=== PATIENT | female | born 1945 | race Caucasian/White ===

== ENCOUNTER 2016-04-10 21:18 | Inpatient (IN) | payer MEDICARE, MEDICAID ==
[2016-04-10] MEDS ORDERED: NORMAL SALINE 1000 ML 1,000 ML IV ONE (22:10)
[2016-04-10] MEDS ORDERED: ONDANSETRON HCL INJ/PF 4 MG/2 ML SDV IV ONE (22:10)
--- NOTE | 2016-04-10 22:14 | ER Document Report ---
ED General - General Stated Complaint: WEAKNESS Notes: Patient is a pleasant 71-year-old female presents for complaint of weakness, vomiting, and diarrhea. Symptoms first started Friday with some abdominal pain followed by vomiting and diarrhea. Stool is watery. No blood in the stool or emesis. No fevers. Previous history of abdominal surgery includes partial colectomy due to bowel obstruction. She also has had a cholecystectomy. She is unsure if she still has her appendix. No dysuria. No other complaints at this time. Patient does have lung cancer. She is no longer smoker. TRAVEL OUTSIDE OF THE [place] IN LAST 30 DAYS: No - Related Data Allergies/Adverse Reactions: Penicillins Allergy (Verified 11/18/15 23:19) Hives Past Medical History - Social History Smoking Status: Former Smoker Frequency of alcohol use: None Drug Abuse: None Family History: Reviewed & Not Pertinent - Past Medical History Cardiac Medical History: Reports: Hx Hypercholesterolemia, Hx Hypertension Denies: Hx Coronary Artery Disease, Hx Heart Attack Pulmonary Medical History: Reports: Hx Asthma, Hx Bronchitis, Hx COPD, Hx Pneumonia Denies: Hx Tuberculosis Neurological Medical History: Denies: Hx Cerebrovascular Accident, Hx Seizures Malignancy Medical History: Reports: Hx Lung Cancer - Squamous cell lung cancer , stage I GI Medical History: Reports: Hx Gastroesophageal Reflux Disease Musculoskeltal Medical History: Reports Hx Arthritis - RA all over Psychiatric Medical History: Reports: Hx Depression - AND ANXIETY Infectious Medical History: Reports: Hx MRSA - History of MRSA pneumonia and history of gram-negative pneumonia Past Surgical History: Reports: Hx Abdominal Surgery - gastric bypass, sbo, Hx Appendectomy, Hx Cholecystectomy, Hx Hysterectomy, Hx Orthopedic Surgery - Immunizations Immunizations up to date: Yes Hx Diphtheria, Pertussis, Tetanus Vaccination: No Hx Pneumococcal Vaccination: 04/14/12 Review of Systems - Review of Systems Notes: My Normal Review Basic REVIEW OF SYSTEMS: CONSTITUTIONAL : Denies fever, chills, or sweats. Denies recent illness. EENT: Denies eye, ear, throat, or mouth pain or symptoms. Denies nasal or sinus congestion. CARDIOVASCULAR: Denies chest pain. RESPIRATORY: Denies cough, cold, or chest congestion. Denies shortness of breath, difficulty breathing, or wheezing. GASTROINTESTINAL: Diffuse abdominal pain. Vomiting and diarrhea Denies constipation. Last BM: GENITOURINARY: Denies difficulty urinating, painful urination, burning, frequency, or blood in urine. MUSCULOSKELETAL: Denies neck or back pain or joint pain or swelling. SKIN: Denies rash or skin lesions. NEUROLOGICAL: Denies altered mental status or loss of consciousness. Denies headache. Denies weakness or paralysis or loss of use of either side. Denies problems with gait or speech. Denies sensory or motor loss. ALL OTHER SYSTEMS REVIEWED AND NEGATIVE. Physical Exam - Vital signs Vitals: Temp 97.9 F 04/10/16 22:00 - Notes Notes: General Appearance: Well nourished, alert, cooperative, no acute distress, no obvious discomfort. Vitals: reviewed, See vital signs table. Head: no swelling or tenderness to the head Eyes: PERRL, EOMI, Conjuctiva clear Mouth: No decreasd moisturehy Neck: Supple, no neck tenderness, No thyromegaly Lungs: No wheezing, No rales, No rhonci, No accessory muscle use, good air exchange bilaterally. Heart: Normal rate, Regular rythm, No murmur, no rub Abdomen: Normal BS, soft, No rigidity, mild to moderate diffuse abdominal tenderness to palpation, No guarding, no rebound, no abdominal masses, no organomegaly Extremities: strength 5/5 in all extremities, good pulses in all extremities, no swelling or tenderness in the extremities, no edema. Skin: warm, dry, appropriate color, no rash Neuro: speech clear, oriented x 3, normal affect, responds appropriately to questions. Course - Re-evaluation Re-evalutation: 04/10/16 23:41 Patient's laboratory evaluation does show a leukocytosis. Her lactic acid is normal. She does have evidence dehydration. She denies abdominal pain currently; however, when I palpate her abdomen she does have reducible pain. Abdomen is still soft and nonrigid. I will obtain a CT scan for further evaluation. - Vital Signs Vital signs: Temp Pulse Resp BP Pulse Ox 97.8 F 18 100/62 100 04/10/16 22:35 04/11/16 00:01 04/11/16 00:01 04/11/16 00:01 - Laboratory Result Diagrams: 04/10/16 22:00 04/10/16 22:00 Laboratory results interpreted by me: 04/10/16 04/10/16 22:00 22:00 WBC 17.3 H RBC 3.26 L Hgb 8.5 L Hct 26.9 L MCH 26.0 L MCHC 31.5 L RDW 16.8 H Seg Neutrophils % 86.2 H Lymphocytes % 9.1 L Absolute Neutrophils 14.9 H Sodium 133.8 L Potassium 5.3 H BUN 51 H Creatinine 2.16 H Est GFR ( Amer) 27 L Est GFR (Non-Af Amer) 22 L Glucose 128 H - EKG Interpretation by Me Additional EKG results interpreted by me: 04/10/16 22:14 EKG is reviewed and interpreted by me. EKG shows normal sinus rhythm with rate of [address] segment elevation or depression. This T wave inversions. MA interval is prolonged at 224 ms. QRS duration QTC intervals are within normal range. Old EKG for comparison is from 02/07/2016. - Transfer of Care Notes: 04/11/16 05:27 Patient's vomiting and diarrhea may control. She still has a small amount of pain with palpation to the abdomen. I did obtain a CT scan because of leukocytosis, her age, and her presentation of hypotension. CT scan was read as a possible kidney stone. Patient has no blood in her urine, no signs of infection in her urine, and clinically her history and exam are not consistent with a kidney stone. I therefore called the radiologist asked him what he meant by his read. He says that the patient has chronic ossification in the area near the ureter. He says there is some new calcification in the area near the ureter. He says he cannot tell protection in the ureter or not. He says if clinically the patient does not seem like a kidney stone that probably is not ; however, he cannot rule out kidney stone with the CT scan alone. He says the patient has always had the appearance of hydronephrosis on her previous CT scans as well due to the history of extrarenal pelvis. This is not new. Based on the patient's lack of hematuria, no infection in the urine, and presentation of vomiting diarrhea I do not suspect the patient has kidney stone. I did explain this to the patient's primary care physician, Dr. Stevens. I did inform him that is difficult the patient should be admitted being that I think patient is dehydrated from all the vomiting diarrhea she's had for last 6 days. Currently the do not see evidence of colitis on CT scan. I did discuss option of antibiotics with Dr. Stevens and he wants to hold off on antibiotics at this time. Patient will be admitted for further workup and treatment. Discharge - Discharge Clinical Impression: Vomiting and diarrhea, Dehydration Leukocytosis Qualifiers: Leukocytosis type: unspecified Qualified Code(s): D72.829 - Elevated white blood cell count, unspecified Condition: Stable Disposition: ADMITTED INPATIENT Admitting Provider: Lenore [facility] Admitted: [facility]
[2016-04-10 22:23] LABS: ABSOLUTE BASOPHILS # (AUTO) 0.1 10^3/uL (0.0-0.2); ABSOLUTE LYMPHOCYTES (AUTO) 1.6 10^3/uL (0.5-4.7); ABSOLUTE MONOCYTES (AUTO) 0.7 10^3/uL (0.1-1.4); ABSOLUTE NEUT (AUTO) 14.9 10^3/uL (1.7-8.2); BASOPHILS % (AUTO) 0.8 % (0-2); EOSINOPHILS % (AUTO) 0.1 % (0-6); HEMATOCRIT 26.9 % (36.0-47.0); HEMOGLOBIN 8.5 g/dL (12.0-15.5); HGB HCT DIFFERENCE -1.4; LYMPHOCYTES % (AUTO) 9.1 % (13-45); MEAN CORPUSCULAR HGB CONC 31.5 g/dL (32.0-36.0); MEAN CORPUSCULAR VOLUME 83 fl (80-97); MONOCYTES % (AUTO) 3.8 % (3-13); RED BLOOD COUNT 3.26 10^6/uL (3.72-5.28); RED CELL DISTRIBUTION WIDTH 16.8 % (11.5-14.0); SEGMENTED NEUTROPHILS % (AUTO) 86.2 % (42-78); WHITE BLOOD COUNT 17.3 10^3/uL (4.0-10.5)
[2016-04-10 22:36] LABS: ALANINE AMINOTRANSFERASE 32 U/L (9-52); ALBUMIN 3.6 g/dL (3.5-5.0); ALKALINE PHOSPHATASE 98 U/L (38-126); ANION GAP 11 (5-19); ASPARTATE AMINO TRANSFERASE 32 U/L (14-36); BILIRUBIN,TOTAL 0.3 mg/dL (0.2-1.3); BLOOD UREA NITROGEN 51 mg/dL (7-20); CALCIUM 8.6 mg/dL (8.4-10.2); CARBON DIOXIDE 22 mmol/L (22-30); CHLORIDE 101 mmol/L (98-107); CREATINE KINASE 46 U/L (30-135); CREATININE RESULT 2.16 mg/dL (0.52-1.25); GLUCOSE 128 mg/dL (75-110); POTASSIUM 5.3 mmol/L (3.6-5.0); SODIUM 133.8 mmol/L (137-145); TOTAL PROTEIN 6.5 g/dL (6.3-8.2)
[2016-04-10 22:48] LABS: CREATINE KINASE MB 1.06 ng/mL (<4.55); TROPONIN I < 0.012 ng/mL
[2016-04-10] MEDS ORDERED: NORMAL SALINE 1000 ML 500 ML IV ONE (23:40)
[2016-04-11 03:48] LABS: APPEARANCE,URINE SLIGHTLY-CLOUDY; BILIRUBIN,URINE NEGATIVE (NEGATIVE); GLUCOSE, URINE NEGATIVE (NEGATIVE); KETONES,URINE NEGATIVE (NEGATIVE); LEUKOCYTE ESTERASE,URINE NEGATIVE (NEGATIVE); NITRITE,URINE NEGATIVE (NEGATIVE); PROTEIN,URINE NEGATIVE (NEGATIVE); URINE SPECIFIC GRAVITY 1.014; UROBILINOGEN,URINE NEGATIVE mg/dL (<2.0)
[2016-04-11] MEDS ORDERED: NORMAL SALINE 1000 ML 1,000 ML IV ONE (05:31)
--- NOTE | 2016-04-11 08:01 | EKG REPORT ---
SEVERITY:- ABNORMAL ECG - SINUS RHYTHM FIRST DEGREE AV BLOCK LEFT ANTERIOR FASCICULAR BLOCK BORDERLINE T ABNORMALITIES, ANT-LAT LEADS : Confirmed by: Michael Olivier MD 11-Apr-2016 08:01:09
[2016-04-11] MEDS ORDERED: (PENDING PHARMACY ID) (Duloxetine Hcl [Duloxetine Hcl] 60 MG) PO SCH (13:30)
[2016-04-11] MEDS ORDERED: (PENDING PHARMACY ID) (Oxycodone Hcl/Acetaminophen [Percocet 10-325 Mg Tablet] 1 EACH) PO SCH (13:30)
[2016-04-11] MEDS ORDERED: ALBUTEROL SULFATE HFA (90 MCG/PUFF) 200 PUFF/8.5 GM MDI IH PRN (14:00)
[2016-04-11] MEDS ORDERED: LANSOPRAZOLE 30 MG TAB.RAP.DR PO ONE (14:15)
[2016-04-11] MEDS ORDERED: DULOXETINE HCL 30 MG CAPSULE.DR PO ONE (14:30)
[2016-04-11] MEDS: OXYCODONE-ACETAMINOPHEN 5-325 MG TABLET PO SCH ×2 (14:53→21:19)
[2016-04-11] MEDS: OXYCODONE HCL IR 5 MG TABLET PO SCH ×2 (14:53→21:19)
[2016-04-11] MEDS: DULOXETINE HCL 30 MG CAPSULE.DR PO SCH (21:19)
[2016-04-12] MEDS: OXYCODONE HCL IR 5 MG TABLET PO SCH ×4 (03:28→22:48)
[2016-04-12] MEDS: OXYCODONE-ACETAMINOPHEN 5-325 MG TABLET PO SCH ×4 (03:28→22:48)
[2016-04-12] MEDS: LANSOPRAZOLE 30 MG TAB.RAP.DR PO SCH (05:11)
[2016-04-12] MEDS ORDERED: ONDANSETRON HCL INJ/PF 4 MG/2 ML SDV ONE (09:30)
[2016-04-12] MEDS: DULOXETINE HCL 30 MG CAPSULE.DR PO SCH ×2 (09:32→23:06)
[2016-04-12] MEDS ORDERED: ONDANSETRON HCL INJ/PF 4 MG/2 ML SDV IV PRN (09:50)
[2016-04-12] MEDS ORDERED: NORMAL SALINE 1000 ML 1,000 ML IV PRN (11:49)
[2016-04-12] MEDS ORDERED: ERGOCALCIFEROL (VITAMIN D2) 50000 UNIT (1.25 MG) CAPSULE PO SCH (12:00)
--- NOTE | 2016-04-12 12:08 | PDOC H&P ---
History of Present Illness Admission Date/PCP: 04/11/16 08:00 NATACHA ENGLAND, History of Present Illness: HUNTER GRANADOS is a 71 year old female, she has end-stage COPD and malignant neoplasm of the lung, she came to the emergency room because of diarrhea and vomiting associated with abdominal pain, in the emergency room she she was evaluated, CT scan of abdomen and pelvis was done and it was negative for an acute pathology. There was evidence of dehydration, that was elevated BUN/ creatinine and also leukocytosis Past Medical History Cardiac Medical History: Reports: Hyperlipidema, Hypertension Pulmonary Medical History: Reports: Asthma, Bronchitis, Chronic Obstructive Pulmonary Disease (COPD), Pneumonia Malignancy Medical History: Reports: Lung Cancer - Squamous cell lung cancer, stage I GI Medical History: Reports: Gastroesophageal Reflux Disease Musculoskeltal Medical History: Reports: Arthritis - RA all over Psychiatric Medical History: Reports: Depression - AND ANXIETY Hematology: Reports: Anemia Infectious Medical History: Reports: 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 and history of gram-negative pneumonia Past Surgical History Past Surgical History: Reports: Appendectomy, Cholecystectomy, Hysterectomy, Orthopedic Surgery Social History Smoking Status: Former Smoker Frequency of Alcohol Use: None Hx Recreational Drug Use: No Drugs: None Hx Prescription Drug Abuse: No - Advance Directive Resuscitation Status: Full Code Family History Family History: Reviewed & Not Pertinent Parental Family History Reviewed: Yes Children Family History Reviewed: Yes Sibling(s) Family History Reviewed.: Yes Medication/Allergy Home Medications: Albuterol Sulfate [Proair HFA] 1 puff IH PRN PRN 10/08/14 Fluconazole [Diflucan] 100 mg PO DAILY 10/08/14 Prednisone [Deltasone 20 mg Tablet] 40 mg PO DAILY #0 tablet 03/13/15 Amlodipine Besylate 5 mg PO DAILY 02/08/16 Clonazepam [Klonopin] 0.5 mg PO BID 02/08/16 Clonidine HCl 0.1 mg PO BID 02/08/16 Duloxetine HCl 60 mg PO BID 02/08/16 Ergocalciferol (Vitamin D2) [Vitamin D2] 50,000 unit PO [id number] 02/08/16 Levocetirizine Dihydrochloride [Xyzal 5 mg Tablet] 5 mg PO QHS 02/08/16 Pravastatin Sodium 40 mg PO QHS 02/08/16 Pregabalin [Lyrica 75 mg Capsule] 75 mg PO TID 02/08/16 Valsartan 160 mg PO BID 02/08/16 Albuterol Sulfate [Proair HFA] 1 - 2 puff IH Q4 PRN #1 inhaler 02/27/16 Budesonide/Formoterol Fumarate [Symbicort Hfa 160-4.5 Mcg Inhaler 6 gm] 2 puff IH Q12 #1 inhaler 02/27/16 Oxycodone HCl/Acetaminophen [Percocet 10-325 mg Tablet] 1 each PO Q6H #60 02/26 Tiotropium [place] [Spiriva Handihaler 18 mcg/dose (30 Dose)] 1 cap IH DAILY # 30 capsule 02/27/16 Omeprazole [Omeprazole] 40 mg PO DAILY 04/11/16 Allergies/Adverse Reactions: Penicillins Allergy (Verified 11/18/15 23:19) Hives Review of Systems Constitutional: ABSENT: chills, fever(s), headache(s), weight gain, weight loss Eyes: ABSENT: visual disturbances Ears: ABSENT: hearing changes Cardiovascular: ABSENT: chest pain, dyspnea on exertion, edema, orthropnea, palpitations Respiratory: ABSENT: cough, hemoptysis Gastrointestinal: PRESENT: diarrhea, vomiting Genitourinary: ABSENT: dysuria, hematuria Musculoskeletal: ABSENT: joint swelling Integumentary: ABSENT: rash, wounds Neurological: ABSENT: abnormal gait, abnormal speech, confusion, dizziness, focal weakness, syncope Psychiatric: ABSENT: anxiety, depression, homidical ideation, suicidal ideation Endocrine: ABSENT: cold intolerance, heat intolerance, menstrual abnormalities, polydipsia, polyuria Hematologic/Lymphatic: ABSENT: easy bleeding, easy bruising, lymphadenopathy Physical Exam Vital Signs: Temp Pulse Resp BP Pulse Ox 97.8 F 89 18 125/60 98 04/12/16 07:00 04/12/16 07:00 04/12/16 07:00 04/12/16 07:00 04/12/16 07:00 Intake & Output 04/11/16 04/12/16 04/13/16 06:59 06:59 06:59 Intake Total 400 Output Total 300 Balance 100 Weight 66.5 kg General appearance: PRESENT: no acute distress, well-developed, well-nourished Head exam: PRESENT: atraumatic, normocephalic Eye exam: PRESENT: conjunctiva pink, EOMI, PERRLA. ABSENT: scleral icterus Ear exam: PRESENT: normal external ear exam Mouth exam: PRESENT: moist, tongue midline Neck exam: PRESENT: full ROM. ABSENT: carotid bruit, JVD, lymphadenopathy, thyromegaly Cardiovascular exam: PRESENT: RRR, +S1, +S2 Vascular exam: PRESENT: normal capillary refill GI/Abdominal exam: PRESENT: normal bowel sounds, soft Rectal exam: PRESENT: deferred Neurological exam: PRESENT: alert, awake, oriented to person, oriented to place , oriented to time, oriented to situation, CN II-XII grossly intact Psychiatric exam: PRESENT: appropriate affect, normal mood Skin exam: PRESENT: dry, intact, warm Results Laboratory Results: 04/11/16 16:26 Nasophary (Mrsa Only) MRSA Surveillance Culture - Final MRSA RECOVERED Impressions: Acute Abdomen Series 04/10/16 22:09 IMPRESSION: NONSPECIFIC BOWEL GAS PATTERN WITHOUT EVIDENCE FOR OBSTRUCTION. Mild subsegmental atelectasis in both lung bases. Abdomen/Pelvis CT 04/10/16 23:38 IMPRESSION: 0.7 possible right distal ureteral stone. Mild prominence of the right renal collecting system. Consider surveillance with dynamic IV contrast CT/IVP of the renal system. Assessment & Plan - Diagnosis (1) Gastroenteritis Is this a current diagnosis for this admission?: YesPlan: She probably have viral gastroenteritis, we will also suggest to to eliminate for C. difficile toxin (2) Acute kidney injury Is this a current diagnosis for this admission?: YesPlan: This is probably prerenal acute kidney injury from loss of volume due to diarrhea and vomiting
[2016-04-12 13:24] LABS: ABSOLUTE BASOPHILS # (AUTO) 0.1 10^3/uL (0.0-0.2); ABSOLUTE EOSINOPHILS # (AUTO) 0.3 10^3/uL (0.0-0.6); ABSOLUTE LYMPHOCYTES (AUTO) 2.5 10^3/uL (0.5-4.7); ABSOLUTE MONOCYTES (AUTO) 1.3 10^3/uL (0.1-1.4); ABSOLUTE NEUT (AUTO) 7.4 10^3/uL (1.7-8.2); BASOPHILS % (AUTO) 0.7 % (0-2); HEMATOCRIT 27.6 % (36.0-47.0); HEMOGLOBIN 8.8 g/dL (12.0-15.5); HGB HCT DIFFERENCE -1.2; LYMPHOCYTES % (AUTO) 21.2 % (13-45); MEAN CORPUSCULAR HEMOGLOBIN 26.4 pg (27.0-33.4); MEAN CORPUSCULAR HGB CONC 32.1 g/dL (32.0-36.0); MEAN CORPUSCULAR VOLUME 82 fl (80-97); MONOCYTES % (AUTO) 11.2 % (3-13); RED BLOOD COUNT 3.35 10^6/uL (3.72-5.28); RED CELL DISTRIBUTION WIDTH 16.1 % (11.5-14.0); SEGMENTED NEUTROPHILS % (AUTO) 63.9 % (42-78); WHITE BLOOD COUNT 11.6 10^3/uL (4.0-10.5)
[2016-04-12 13:38] LABS: ALANINE AMINOTRANSFERASE 38 U/L (9-52); ALBUMIN 2.8 g/dL (3.5-5.0); ALKALINE PHOSPHATASE 104 U/L (38-126); ANION GAP 7 (5-19); ASPARTATE AMINO TRANSFERASE 18 U/L (14-36); BILIRUBIN,TOTAL 0.2 mg/dL (0.2-1.3); BLOOD UREA NITROGEN 20 mg/dL (7-20); CALCIUM 8.9 mg/dL (8.4-10.2); CARBON DIOXIDE 26 mmol/L (22-30); CHLORIDE 105 mmol/L (98-107); CREATININE RESULT 0.82 mg/dL (0.52-1.25); GLUCOSE 69 mg/dL (75-110); POTASSIUM 4.9 mmol/L (3.6-5.0); SODIUM 137.8 mmol/L (137-145); TOTAL PROTEIN 5.5 g/dL (6.3-8.2)
[2016-04-12] MEDS ORDERED: TIOTROPIUM BROMIDE DPI 5 CAP/KIT (18 MCG/CAP) IH ONE (14:00)
[2016-04-12] MEDS ORDERED: CLONAZEPAM 1 MG TABLET PO ONE (14:00)
[2016-04-12] MEDS ORDERED: VALSARTAN 160 MG TABLET PO ONE (14:00)
[2016-04-12] MEDS ORDERED: AMLODIPINE BESYLATE 5 MG TABLET PO ONE (14:00)
[2016-04-12] MEDS ORDERED: CLONIDINE HCL 0.1 MG TABLET PO ONE (14:00)
[2016-04-12] MEDS: PREGABALIN 75 MG CAPSULE PO SCH ×2 (14:32→22:48)
--- NOTE | 2016-04-12 16:48 | PDOC DISCHARGE SUMMARY ---
General - Admit/Disc Date/PCP Admission Date/Primary Care Provider: 04/11/16 08:00 NATACHA ENGLAND, Discharge Date: 04/13/16 - Discharge Diagnosis (1) Gastroenteritis Is this a current diagnosis for this admission?: Yes (2) Acute kidney injury Is this a current diagnosis for this admission?: Yes - Additional Information Resuscitation Status: Full Code Home Medications: Albuterol Sulfate [Proair HFA] 1 puff IH PRN PRN 10/08/14 Fluconazole [Diflucan] 100 mg PO DAILY 10/08/14 Prednisone [Deltasone 20 mg Tablet] 40 mg PO DAILY #0 tablet 03/13/15 Amlodipine Besylate 5 mg PO DAILY 02/08/16 Clonazepam [Klonopin] 0.5 mg PO BID 02/08/16 Clonidine HCl 0.1 mg PO BID 02/08/16 Duloxetine HCl 60 mg PO BID 02/08/16 Ergocalciferol (Vitamin D2) [Vitamin D2] 50,000 unit PO [id number] 02/08/16 Levocetirizine Dihydrochloride [Xyzal 5 mg Tablet] 5 mg PO QHS 02/08/16 Pravastatin Sodium 40 mg PO QHS 02/08/16 Pregabalin [Lyrica 75 mg Capsule] 75 mg PO TID 02/08/16 Valsartan 160 mg PO BID 02/08/16 Albuterol Sulfate [Proair HFA] 1 - 2 puff IH Q4 PRN #1 inhaler 02/27/16 Budesonide/Formoterol Fumarate [Symbicort HFA 160-4.5 mcg Inhaler 6 gm] 2 puff IH Q12 #1 inhaler 02/27/16 Oxycodone HCl/Acetaminophen [Percocet 10-325 mg Tablet] 1 each PO Q6H #60 02/26 Tiotropium [place] [Spiriva Handihaler 18 mcg/dose (30 Dose)] 1 cap IH DAILY # 30 capsule 02/27/16 Omeprazole 40 mg PO DAILY 04/11/16 History of Present Illness History of Present Illness: HUNTER GARNADOS is a 71 year old female, she has end-stage COPD and malignant neoplasm of the lung, she came to the emergency room because of diarrhea and vomiting associated with abdominal pain, in the emergency room she she was evaluated, CT scan of abdomen and pelvis was done and it was negative for an acute pathology. There was evidence of dehydration, that was elevated BUN/ creatinine and also leukocytosis Hospital Course Hospital Course: She was admitted because of acute gastroenteritis associated with acute kidney injury, prerenal type, she was treated with intravenous fluid. There was complete normalization of serum creatinine and the BUN on admission that was leukocytosis but this is resolved with hydration. Physical Exam Vital Signs: Temp Pulse Resp BP Pulse Ox 97.3 F 88 20 114/64 100 04/12/16 11:00 04/12/16 11:00 04/12/16 11:00 04/12/16 11:00 04/12/16 11:00 Intake & Output 04/11/16 04/12/16 04/13/16 06:59 06:59 06:59 Intake Total 400 Output Total 300 Balance 100 Weight 66.5 kg General appearance: PRESENT: no acute distress Eye exam: PRESENT: PERRLA Respiratory exam: PRESENT: clear to auscultation ghulam Cardiovascular exam: PRESENT: +S1, +S2 GI/Abdominal exam: PRESENT: soft Results Laboratory Results: 04/12/16 13:12 04/12/16 13:12 04/12/16 04/12/16 13:12 13:12 WBC 11.6 H RBC 3.35 L Hgb 8.8 L Hct 27.6 L MCV 82 MCH 26.4 L MCHC 32.1 RDW 16.1 H Plt Count 337 Seg Neutrophils % 63.9 Lymphocytes % 21.2 Monocytes % 11.2 Eosinophils % 3.0 Basophils % 0.7 Absolute Neutrophils 7.4 Absolute Lymphocytes 2.5 Absolute Monocytes 1.3 Absolute Eosinophils 0.3 Absolute Basophils 0.1 Sodium 137.8 Potassium 4.9 Chloride 105 Carbon Dioxide 26 Anion Gap 7 BUN 20 Creatinine 0.82 Est GFR ( Amer) > 60 Est GFR (Non-Af Amer) > 60 Glucose 69 L Calcium 8.9 Total Bilirubin 0.2 AST 18 ALT 38 Alkaline Phosphatase 104 Total Protein 5.5 L Albumin 2.8 L 04/11/16 16:26 Nasophary (Mrsa Only) MRSA Surveillance Culture - Final MRSA RECOVERED Impressions: Acute Abdomen Series 04/10/16 22:09 IMPRESSION: NONSPECIFIC BOWEL GAS PATTERN WITHOUT EVIDENCE FOR OBSTRUCTION. Mild subsegmental atelectasis in both lung bases. Abdomen/Pelvis CT 04/10/16 23:38 IMPRESSION: 0.7 possible right distal ureteral stone. Mild prominence of the right renal collecting system. Consider surveillance with dynamic IV contrast CT/IVP of the renal system.
[2016-04-12] MEDS ORDERED: (PENDING PHARMACY ID) (Pravastatin Sodium [Pravastatin Sodium] 40 MG) PO SCH (22:00)
[2016-04-12] MEDS ORDERED: (PENDING PHARMACY ID) (Levocetirizine Dihydrochloride [Xyzal 5 Mg Tablet] 5 MG) PO SCH (22:00)
[2016-04-12] MEDS ORDERED: VALSARTAN 160 MG TABLET PO SCH (22:00)
[2016-04-12] MEDS: CLONIDINE HCL 0.1 MG TABLET PO SCH (22:48)
[2016-04-12] MEDS: CLONAZEPAM 1 MG TABLET PO SCH (22:48)
[2016-04-12] MEDS: CETIRIZINE 5 MG TABLET PO SCH (23:06)
[2016-04-12] MEDS: BUDESONIDE/FORMOTEROL 160-4.5 MCG 60 PUFF/6 GM MDI IH SCH (23:07)
[2016-04-12] MEDS: ATORVASTATIN CALCIUM 10 MG TABLET PO SCH (23:07)
[2016-04-13] MEDS: OXYCODONE-ACETAMINOPHEN 5-325 MG TABLET PO SCH ×4 (03:36→21:26)
[2016-04-13] MEDS: OXYCODONE HCL IR 5 MG TABLET PO SCH ×4 (03:36→21:26)
[2016-04-13] MEDS: PREGABALIN 75 MG CAPSULE PO SCH ×3 (05:25→21:26)
[2016-04-13] MEDS: LANSOPRAZOLE 30 MG TAB.RAP.DR PO SCH (05:25)
[2016-04-13] MEDS: CLONAZEPAM 1 MG TABLET PO SCH ×2 (09:44→21:26)
[2016-04-13] MEDS: DULOXETINE HCL 30 MG CAPSULE.DR PO SCH ×2 (09:44→21:25)
[2016-04-13] MEDS ORDERED: AMLODIPINE BESYLATE 5 MG TABLET PO SCH (10:00)
--- NOTE | 2016-04-13 11:11 | PDOC PROGRESS REPORT ---
Subjective Progress Note for:: 04/13/16 Subjective:: Patient is supposed to discharge today but according to the nursing staff the patient still quite a bit wheezing and the patient's blood processes still not quite up-and-down and at this point the discharge was canceled and just continues to more monitor the patient for next 24 hours entity adjust some medications patient's denied any chest pain no shortness of the breath and no fever patient's denied any headache Physical Exam Vital Signs: Temp Pulse Resp BP Pulse Ox 98.5 F 102 H 21 H 115/62 98 04/12/16 20:00 04/13/16 03:00 04/12/16 20:00 04/13/16 03:00 04/13/16 01:48 Intake & Output 04/12/16 04/13/16 04/14/16 06:59 06:59 06:59 Intake Total 400 450 Output Total 300 800 Balance 100 -350 Weight 66.5 kg General appearance: PRESENT: no acute distress Head exam: PRESENT: normocephalic Eye exam: PRESENT: PERRLA Mouth exam: PRESENT: neck supple Respiratory exam: PRESENT: wheezes Cardiovascular exam: PRESENT: +S1, +S2 GI/Abdominal exam: PRESENT: normal bowel sounds, soft. ABSENT: tenderness Extremities exam: ABSENT: pedal edema Neurological exam: PRESENT: alert, awake, oriented to person, oriented to place Results Laboratory Results: 04/12/16 13:12 04/12/16 13:12 04/12/16 04/12/16 13:12 13:12 WBC 11.6 H RBC 3.35 L Hgb 8.8 L Hct 27.6 L MCV 82 MCH 26.4 L MCHC 32.1 RDW 16.1 H Plt Count 337 Seg Neutrophils % 63.9 Lymphocytes % 21.2 Monocytes % 11.2 Eosinophils % 3.0 Basophils % 0.7 Absolute Neutrophils 7.4 Absolute Lymphocytes 2.5 Absolute Monocytes 1.3 Absolute Eosinophils 0.3 Absolute Basophils 0.1 Sodium 137.8 Potassium 4.9 Chloride 105 Carbon Dioxide 26 Anion Gap 7 BUN 20 Creatinine 0.82 Est GFR ( Amer) > 60 Est GFR (Non-Af Amer) > 60 Glucose 69 L Calcium 8.9 Total Bilirubin 0.2 AST 18 ALT 38 Alkaline Phosphatase 104 Total Protein 5.5 L Albumin 2.8 L 04/11/16 16:26 Nasophary (Mrsa Only) MRSA Surveillance Culture - Final MRSA RECOVERED Impressions: Acute Abdomen Series 04/10/16 22:09 IMPRESSION: NONSPECIFIC BOWEL GAS PATTERN WITHOUT EVIDENCE FOR OBSTRUCTION. Mild subsegmental atelectasis in both lung bases. Abdomen/Pelvis CT 04/10/16 23:38 IMPRESSION: 0.7 possible right distal ureteral stone. Mild prominence of the right renal collecting system. Consider surveillance with dynamic IV contrast CT/IVP of the renal system. Assessment & Plan - Diagnosis (1) Acute kidney injury Is this a current diagnosis for this admission?: YesPlan: We will repeat the Chem-7 in the morning (2) Acute respiratory failure Qualifiers: Respiratory failure complication: hypoxia Qualified Code(s): J96.01 - Acute respiratory failure with hypoxia Is this a current diagnosis for this admission?: YesPlan: At the DuoNeb nebulizer treatment (4) End stage chronic obstructive pulmonary disease Is this a current diagnosis for this admission?: YesPlan: Patient nebulizer treatment and hold discarge (5) Gastroenteritis Is this a current diagnosis for this admission?: YesPlan: Will repeat the CBC and Chem-7 in the morning continuous IV fluid - Time Time Spent with patient: 15-24 minutes Medications reviewed and adjusted accordingly: Yes Anticipated discharge: Home - Plan Summary Plan Summary: We will check the electrolytes and continues the current medications and get the new DuoNeb nebulizer treatments and continues to monitor for next 24 hours
[2016-04-13] MEDS ORDERED: VALSARTAN 160 MG TABLET PO SCH (11:12)
[2016-04-13] MEDS: IPRATROPIUM/ALBUTEROL 0.5-2.5 MG/3 ML AMPUL NEB SCH ×3 (12:14→19:50)
[2016-04-13] MEDS ORDERED: VALSARTAN 40 MG TABLET PO ONE (12:30)
[2016-04-13] MEDS: BUDESONIDE/FORMOTEROL 160-4.5 MCG 60 PUFF/6 GM MDI IH SCH ×2 (12:53→21:27)
[2016-04-13] MEDS: TIOTROPIUM BROMIDE DPI 5 CAP/KIT (18 MCG/CAP) IH SCH (12:54)
[2016-04-13] MEDS: CLONIDINE HCL 0.1 MG TABLET PO SCH (12:55)
[2016-04-13] MEDS: NORMAL SALINE 1000 ML 1,000 ML IV PRN (18:36)
[2016-04-13] MEDS: ATORVASTATIN CALCIUM 10 MG TABLET PO SCH (21:25)
[2016-04-13] MEDS: CETIRIZINE 5 MG TABLET PO SCH (21:25)
[2016-04-13] MEDS ORDERED: VALSARTAN 40 MG TABLET PO SCH (22:00)
[2016-04-14] MEDS: OXYCODONE-ACETAMINOPHEN 5-325 MG TABLET PO SCH ×4 (02:11→21:59)
[2016-04-14] MEDS: OXYCODONE HCL IR 5 MG TABLET PO SCH ×4 (02:11→22:00)
[2016-04-14 05:42] LABS: HEMATOCRIT 27.2 % (36.0-47.0); HEMOGLOBIN 8.8 g/dL (12.0-15.5); HGB HCT DIFFERENCE -0.8; MEAN CORPUSCULAR HEMOGLOBIN 26.3 pg (27.0-33.4); MEAN CORPUSCULAR HGB CONC 32.3 g/dL (32.0-36.0); MEAN CORPUSCULAR VOLUME 82 fl (80-97); RED BLOOD COUNT 3.33 10^6/uL (3.72-5.28); RED CELL DISTRIBUTION WIDTH 15.9 % (11.5-14.0); WHITE BLOOD COUNT 10.3 10^3/uL (4.0-10.5)
[2016-04-14] MEDS: PREGABALIN 75 MG CAPSULE PO SCH ×3 (06:14→22:00)
[2016-04-14] MEDS: NORMAL SALINE 1000 ML 1,000 ML IV PRN (06:14)
[2016-04-14] MEDS: LANSOPRAZOLE 30 MG TAB.RAP.DR PO SCH (06:14)
[2016-04-14] MEDS: IPRATROPIUM/ALBUTEROL 0.5-2.5 MG/3 ML AMPUL NEB SCH ×4 (08:23→20:05)
[2016-04-14 08:52] LABS: ANION GAP 13 (5-19); BLOOD UREA NITROGEN 21 mg/dL (7-20); CARBON DIOXIDE 22 mmol/L (22-30); CHLORIDE 108 mmol/L (98-107); GLUCOSE 93 mg/dL (75-110); POTASSIUM 4.8 mmol/L (3.6-5.0); SODIUM 143.3 mmol/L (137-145)
[2016-04-14] MEDS: DULOXETINE HCL 30 MG CAPSULE.DR PO SCH ×2 (09:58→22:00)
[2016-04-14] MEDS: CLONAZEPAM 1 MG TABLET PO SCH ×2 (09:58→22:01)
[2016-04-14] MEDS: BUDESONIDE/FORMOTEROL 160-4.5 MCG 60 PUFF/6 GM MDI IH SCH ×2 (09:59→22:00)
[2016-04-14] MEDS: TIOTROPIUM BROMIDE DPI 5 CAP/KIT (18 MCG/CAP) IH SCH (09:59)
--- NOTE | 2016-04-14 11:19 | PDOC PROGRESS REPORT ---
Subjective Progress Note for:: 04/14/16 Subjective:: Patient is feeling much better after stop all blood pressure medication and start IV fluid patient's denied any headache no nausea no vomiting and patient' s denied any dizziness and no other symptoms patient's blood processes remained stable and patient scattered more benefit with the nebulizer treatments patient' s denied any chest pain no shortness of the bladder today Physical Exam Vital Signs: Temp Pulse Resp BP Pulse Ox 98 F 85 17 127/68 H 100 04/14/16 08:00 04/14/16 08:23 04/14/16 08:23 04/14/16 08:00 04/14/16 08:00 Intake & Output 04/13/16 04/14/16 04/15/16 06:59 06:59 06:59 Intake Total 450 625 Output Total 800 300 Balance -350 325 Weight 66.5 kg General appearance: PRESENT: no acute distress Head exam: PRESENT: normocephalic Eye exam: PRESENT: PERRLA Respiratory exam: PRESENT: clear to auscultation ghulam Cardiovascular exam: PRESENT: +S1, +S2 GI/Abdominal exam: PRESENT: normal bowel sounds, soft. ABSENT: tenderness Extremities exam: ABSENT: pedal edema Neurological exam: PRESENT: alert, awake, oriented to person, oriented to place Psychiatric exam: PRESENT: anxious, normal mood Skin exam: PRESENT: normal color Results Laboratory Results: 04/14/16 04:58 04/14/16 04:58 04/14/16 04/14/16 04:58 04:58 WBC 10.3 RBC 3.33 L Hgb 8.8 L Hct 27.2 L MCV 82 MCH 26.3 L MCHC 32.3 RDW 15.9 H Plt Count 362 Sodium 143.3 Potassium 4.8 Chloride 108 H Carbon Dioxide 22 Anion Gap 13 BUN 21 H Creatinine 0.80 Est GFR ( Amer) > 60 Est GFR (Non-Af Amer) > 60 Glucose 93 Calcium 9.0 Impressions: Acute Abdomen Series 04/10/16 22:09 IMPRESSION: NONSPECIFIC BOWEL GAS PATTERN WITHOUT EVIDENCE FOR OBSTRUCTION. Mild subsegmental atelectasis in both lung bases. Abdomen/Pelvis CT 04/10/16 23:38 IMPRESSION: 0.7 possible right distal ureteral stone. Mild prominence of the right renal collecting system. Consider surveillance with dynamic IV contrast CT/IVP of the renal system. Chest X-Ray 04/13/16 00:00 IMPRESSION: NO ACUTE RADIOGRAPHIC FINDING IN THE CHEST. Assessment & Plan - Diagnosis (1) Acute kidney injury Is this a current diagnosis for this admission?: YesPlan: All improving (2) Acute respiratory failure Qualifiers: Respiratory failure complication: hypoxia Qualified Code(s): J96.01 - Acute respiratory failure with hypoxia Is this a current diagnosis for this admission?: YesPlan: At the DuoNeb nebulizer treatment (3) Anxiety Plan: Stable (4) End stage chronic obstructive pulmonary disease Is this a current diagnosis for this admission?: YesPlan: Patient nebulizer treatment and hold discarge (5) Gastroenteritis Is this a current diagnosis for this admission?: YesPlan: Will repeat the CBC and Chem-7 in the morning continuous IV fluid - Time Time Spent with patient: 15-24 minutes Medications reviewed and adjusted accordingly: Yes Anticipated discharge: Home - Inpatient Certification Medical Necessity: Need For IV Fluids - Plan Summary Plan Summary: Patient is much improving after the stopped all blood pressure medication and start IV fluids I think patient is more dehydrated because of the gastroenteritis will continues to hold the blood pressure medications and continues to monitor the patient's symptoms and see how the patient's dusted from next 24 hours
[2016-04-14] MEDS: ATORVASTATIN CALCIUM 10 MG TABLET PO SCH (22:00)
[2016-04-14] MEDS: CETIRIZINE 5 MG TABLET PO SCH (22:00)
[2016-04-15] MEDS: OXYCODONE HCL IR 5 MG TABLET PO SCH ×4 (04:14→18:11)
[2016-04-15] MEDS: OXYCODONE-ACETAMINOPHEN 5-325 MG TABLET PO SCH ×4 (04:14→18:11)
[2016-04-15] MEDS: LANSOPRAZOLE 30 MG TAB.RAP.DR PO SCH (05:17)
[2016-04-15] MEDS: PREGABALIN 75 MG CAPSULE PO SCH ×3 (05:17→22:16)
[2016-04-15 05:18] LABS: HEMATOCRIT 26.5 % (36.0-47.0); HEMOGLOBIN 8.5 g/dL (12.0-15.5); MEAN CORPUSCULAR HEMOGLOBIN 26.1 pg (27.0-33.4); MEAN CORPUSCULAR HGB CONC 31.9 g/dL (32.0-36.0); MEAN CORPUSCULAR VOLUME 82 fl (80-97); RED BLOOD COUNT 3.24 10^6/uL (3.72-5.28); RED CELL DISTRIBUTION WIDTH 15.7 % (11.5-14.0); WHITE BLOOD COUNT 8.4 10^3/uL (4.0-10.5)
[2016-04-15 05:47] LABS: ANION GAP 14 (5-19); BLOOD UREA NITROGEN 21 mg/dL (7-20); CALCIUM 9.3 mg/dL (8.4-10.2); CARBON DIOXIDE 22 mmol/L (22-30); CHLORIDE 107 mmol/L (98-107); CREATININE RESULT 0.77 mg/dL (0.52-1.25); GLUCOSE 81 mg/dL (75-110); POTASSIUM 4.5 mmol/L (3.6-5.0)
[2016-04-15] MEDS: IPRATROPIUM/ALBUTEROL 0.5-2.5 MG/3 ML AMPUL NEB SCH ×4 (07:35→20:55)
--- NOTE | 2016-04-15 09:52 | PDOC PROGRESS REPORT ---
Subjective Progress Note for:: 04/15/16 Subjective:: Is doing very well. Patient's blood present is running 120 range and now any medications. His denied any abdominal pain no nausea no vomiting no chest pain nausea test of the breath Physical Exam Vital Signs: Temp Pulse Resp BP Pulse Ox 98.0 F 88 14 117/67 95 04/15/16 03:28 04/15/16 07:35 04/15/16 07:35 04/15/16 03:28 04/15/16 07:35 Intake & Output 04/14/16 04/15/16 04/16/16 06:59 06:59 06:59 Intake Total 3178 Output Total 1550 Balance 1628 General appearance: PRESENT: no acute distress Head exam: PRESENT: normocephalic Eye exam: PRESENT: PERRLA Mouth exam: PRESENT: neck supple Respiratory exam: PRESENT: wheezes Cardiovascular exam: PRESENT: +S1, +S2 GI/Abdominal exam: PRESENT: normal bowel sounds, soft. ABSENT: tenderness Extremities exam: ABSENT: pedal edema Musculoskeletal exam: PRESENT: ambulatory Neurological exam: PRESENT: alert, awake, oriented to person, oriented to place Psychiatric exam: PRESENT: normal mood Skin exam: PRESENT: normal color Results Laboratory Results: 04/15/16 04:50 04/15/16 04:56 04/15/16 04/15/16 04:50 04:56 WBC 8.4 RBC 3.24 L Hgb 8.5 L Hct 26.5 L MCV 82 MCH 26.1 L MCHC 31.9 L RDW 15.7 H Plt Count 369 Sodium 143.0 Potassium 4.5 Chloride 107 Carbon Dioxide 22 Anion Gap 14 BUN 21 H Creatinine 0.77 Est GFR ( Amer) > 60 Est GFR (Non-Af Amer) > 60 Glucose 81 Calcium 9.3 Impressions: Acute Abdomen Series 04/10/16 22:09 IMPRESSION: NONSPECIFIC BOWEL GAS PATTERN WITHOUT EVIDENCE FOR OBSTRUCTION. Mild subsegmental atelectasis in both lung bases. Abdomen/Pelvis CT 04/10/16 23:38 IMPRESSION: 0.7 possible right distal ureteral stone. Mild prominence of the right renal collecting system. Consider surveillance with dynamic IV contrast CT/IVP of the renal system. Chest X-Ray 04/13/16 00:00 IMPRESSION: NO ACUTE RADIOGRAPHIC FINDING IN THE CHEST. Assessment & Plan - Diagnosis (1) Acute kidney injury Is this a current diagnosis for this admission?: YesPlan: On BUN/creatinine is normal (2) Acute respiratory failure Qualifiers: Respiratory failure complication: hypoxia Qualified Code(s): J96.01 - Acute respiratory failure with hypoxia Is this a current diagnosis for this admission?: YesPlan: At the DuoNeb nebulizer treatment (3) Anxiety Plan: Stable (4) End stage chronic obstructive pulmonary disease Is this a current diagnosis for this admission?: YesPlan: Patient nebulizer treatment and hold discarge (5) Gastroenteritis Is this a current diagnosis for this admission?: YesPlan: Resolving - Time Time Spent with patient: 15-24 minutes Medications reviewed and adjusted accordingly: Yes Anticipated discharge: Home Within: within 24 hours - Inpatient Certification Medical Necessity: Need For IV Fluids Post Hospital Care: D/C [facility] Documentation - Plan Summary Plan Summary: Stop IV fluid and patient's blood pressure is currently stable without any medications will monitor for next 24 hours discharge tomorrow
[2016-04-15] MEDS: CLONAZEPAM 1 MG TABLET PO SCH ×2 (11:44→22:17)
[2016-04-15] MEDS: DULOXETINE HCL 30 MG CAPSULE.DR PO SCH ×2 (11:44→22:16)
[2016-04-15] MEDS: TIOTROPIUM BROMIDE DPI 5 CAP/KIT (18 MCG/CAP) IH SCH (11:45)
[2016-04-15] MEDS: BUDESONIDE/FORMOTEROL 160-4.5 MCG 60 PUFF/6 GM MDI IH SCH ×2 (11:45→22:16)
[2016-04-15] MEDS: ATORVASTATIN CALCIUM 10 MG TABLET PO SCH (22:16)
[2016-04-15] MEDS: CETIRIZINE 5 MG TABLET PO SCH (22:17)
[2016-04-16] MEDS: OXYCODONE-ACETAMINOPHEN 5-325 MG TABLET PO SCH ×5 (00:10→23:56)
[2016-04-16] MEDS: OXYCODONE HCL IR 5 MG TABLET PO SCH ×5 (00:10→23:57)
[2016-04-16] MEDS: LANSOPRAZOLE 30 MG TAB.RAP.DR PO SCH (05:37)
[2016-04-16] MEDS: PREGABALIN 75 MG CAPSULE PO SCH ×3 (05:37→22:31)
[2016-04-16 05:43] LABS: HEMATOCRIT 26.8 % (36.0-47.0); HEMOGLOBIN 8.8 g/dL (12.0-15.5); HGB HCT DIFFERENCE -0.4; MEAN CORPUSCULAR HEMOGLOBIN 26.6 pg (27.0-33.4); MEAN CORPUSCULAR HGB CONC 32.6 g/dL (32.0-36.0); MEAN CORPUSCULAR VOLUME 82 fl (80-97); RED BLOOD COUNT 3.29 10^6/uL (3.72-5.28); RED CELL DISTRIBUTION WIDTH 15.8 % (11.5-14.0); WHITE BLOOD COUNT 8.8 10^3/uL (4.0-10.5)
[2016-04-16 05:55] LABS: ANION GAP 10 (5-19); BLOOD UREA NITROGEN 21 mg/dL (7-20); CALCIUM 9.2 mg/dL (8.4-10.2); CARBON DIOXIDE 26 mmol/L (22-30); CHLORIDE 107 mmol/L (98-107); CREATININE RESULT 0.82 mg/dL (0.52-1.25); GLUCOSE 85 mg/dL (75-110); POTASSIUM 4.7 mmol/L (3.6-5.0); SODIUM 143.4 mmol/L (137-145)
[2016-04-16] MEDS: IPRATROPIUM/ALBUTEROL 0.5-2.5 MG/3 ML AMPUL NEB SCH ×4 (07:59→21:00)
[2016-04-16] MEDS: DULOXETINE HCL 30 MG CAPSULE.DR PO SCH ×2 (09:33→22:29)
[2016-04-16] MEDS: CLONAZEPAM 1 MG TABLET PO SCH ×2 (09:33→22:31)
[2016-04-16] MEDS: BUDESONIDE/FORMOTEROL 160-4.5 MCG 60 PUFF/6 GM MDI IH SCH ×2 (09:34→22:29)
[2016-04-16] MEDS: TIOTROPIUM BROMIDE DPI 5 CAP/KIT (18 MCG/CAP) IH SCH (09:34)
[2016-04-16] MEDS: ATORVASTATIN CALCIUM 10 MG TABLET PO SCH (22:29)
[2016-04-16] MEDS: CETIRIZINE 5 MG TABLET PO SCH (22:29)
[2016-04-16] MEDS: AZITHROMYCIN 250 MG TABLET PO SCH (22:29)
[2016-04-17] MEDS: LANSOPRAZOLE 30 MG TAB.RAP.DR PO SCH (05:43)
[2016-04-17] MEDS: PREGABALIN 75 MG CAPSULE PO SCH ×3 (05:43→22:43)
[2016-04-17] MEDS: OXYCODONE HCL IR 5 MG TABLET PO SCH ×3 (05:44→17:12)
[2016-04-17] MEDS: OXYCODONE-ACETAMINOPHEN 5-325 MG TABLET PO SCH ×3 (05:44→17:11)
[2016-04-17] MEDS: IPRATROPIUM/ALBUTEROL 0.5-2.5 MG/3 ML AMPUL NEB SCH ×3 (09:28→19:34)
[2016-04-17] MEDS: DULOXETINE HCL 30 MG CAPSULE.DR PO SCH ×2 (09:50→22:42)
[2016-04-17] MEDS: CLONAZEPAM 1 MG TABLET PO SCH ×3 (09:51→23:14)
[2016-04-17] MEDS: BUDESONIDE/FORMOTEROL 160-4.5 MCG 60 PUFF/6 GM MDI IH SCH ×2 (09:52→22:43)
[2016-04-17] MEDS: TIOTROPIUM BROMIDE DPI 5 CAP/KIT (18 MCG/CAP) IH SCH (10:18)
[2016-04-17] MEDS ORDERED: IPRATROPIUM/ALBUTEROL 0.5-2.5 MG/3 ML AMPUL NEB PRN (14:42)
[2016-04-17] MEDS: AZITHROMYCIN 250 MG TABLET PO SCH (22:42)
[2016-04-17] MEDS: CETIRIZINE 5 MG TABLET PO SCH (22:42)
[2016-04-17] MEDS: ATORVASTATIN CALCIUM 10 MG TABLET PO SCH (22:42)
[2016-04-18] MEDS: OXYCODONE-ACETAMINOPHEN 5-325 MG TABLET PO SCH ×3 (02:20→11:16)
[2016-04-18] MEDS: OXYCODONE HCL IR 5 MG TABLET PO SCH ×3 (02:20→11:15)
[2016-04-18] MEDS: PREGABALIN 75 MG CAPSULE PO SCH ×3 (05:42→22:38)
[2016-04-18] MEDS: LANSOPRAZOLE 30 MG TAB.RAP.DR PO SCH (05:42)
[2016-04-18] MEDS: IPRATROPIUM/ALBUTEROL 0.5-2.5 MG/3 ML AMPUL NEB SCH ×3 (08:55→20:35)
[2016-04-18] MEDS: TIOTROPIUM BROMIDE DPI 5 CAP/KIT (18 MCG/CAP) IH SCH (10:48)
[2016-04-18] MEDS: BUDESONIDE/FORMOTEROL 160-4.5 MCG 60 PUFF/6 GM MDI IH SCH ×2 (10:49→22:38)
[2016-04-18] MEDS: DULOXETINE HCL 30 MG CAPSULE.DR PO SCH ×2 (10:49→22:37)
[2016-04-18] MEDS: CLONAZEPAM 1 MG TABLET PO SCH ×2 (10:49→22:38)
[2016-04-18] MEDS: OXYCODONE HCL IR 5 MG TABLET PO PRN (20:46)
[2016-04-18] MEDS: OXYCODONE-ACETAMINOPHEN 5-325 MG TABLET PO PRN (20:46)
--- NOTE | 2016-04-18 21:00 | PDOC PROGRESS REPORT ---
Subjective Progress Note for:: 04/17/16 Subjective:: Patient seen by the bedside, she complained of congestion and shortness of breath Physical Exam Vital Signs: Temp Pulse Resp BP Pulse Ox 97.8 F 97 20 105/63 97 04/17/16 16:10 04/17/16 16:10 04/17/16 16:10 04/17/16 16:10 04/17/16 14:11 Intake & Output 04/16/16 04/17/16 04/18/16 06:59 06:59 06:59 Intake Total 1251 1016 200 Output Total 1100 4 500 Balance 151 1012 -300 General appearance: PRESENT: mild distress Eye exam: PRESENT: PERRLA Respiratory exam: PRESENT: wheezes Cardiovascular exam: PRESENT: +S1, +S2 Results Laboratory Results: 04/16/16 05:25 04/16/16 05:25 Impressions: Acute Abdomen Series 04/10/16 22:09 IMPRESSION: NONSPECIFIC BOWEL GAS PATTERN WITHOUT EVIDENCE FOR OBSTRUCTION. Mild subsegmental atelectasis in both lung bases. Abdomen/Pelvis CT 04/10/16 23:38 IMPRESSION: 0.7 possible right distal ureteral stone. Mild prominence of the right renal collecting system. Consider surveillance with dynamic IV contrast CT/IVP of the renal system. Chest X-Ray 04/13/16 00:00 IMPRESSION: NO ACUTE RADIOGRAPHIC FINDING IN THE CHEST. Assessment & Plan - Diagnosis (1) Gastroenteritis Is this a current diagnosis for this admission?: Yes (2) Acute kidney injury Is this a current diagnosis for this admission?: Yes (3) Chronic obstructive lung disease Qualifiers: COPD type: unspecified COPD Qualified Code(s): J44.9 - Chronic obstructive pulmonary disease, unspecified Is this a current diagnosis for this admission?: Yes (4) Chronic respiratory failure Qualifiers: Respiratory failure complication: hypoxia Qualified Code(s): J96.11 - Chronic respiratory failure with hypoxia Is this a current diagnosis for this admission?: Yes (5) End stage chronic obstructive pulmonary disease Is this a current diagnosis for this admission?: Yes
[2016-04-18] MEDS: ATORVASTATIN CALCIUM 10 MG TABLET PO SCH (22:37)
[2016-04-18] MEDS: AZITHROMYCIN 250 MG TABLET PO SCH (22:37)
[2016-04-18] MEDS: CETIRIZINE 5 MG TABLET PO SCH (22:38)
[2016-04-19] MEDS: LANSOPRAZOLE 30 MG TAB.RAP.DR PO SCH (05:36)
[2016-04-19] MEDS: PREGABALIN 75 MG CAPSULE PO SCH ×3 (05:36→21:38)
[2016-04-19] MEDS: OXYCODONE-ACETAMINOPHEN 5-325 MG TABLET PO PRN ×2 (08:13→16:07)
[2016-04-19] MEDS: OXYCODONE HCL IR 5 MG TABLET PO PRN ×2 (08:13→16:08)
[2016-04-19] MEDS: IPRATROPIUM/ALBUTEROL 0.5-2.5 MG/3 ML AMPUL NEB SCH ×3 (08:34→19:54)
[2016-04-19] MEDS: DULOXETINE HCL 30 MG CAPSULE.DR PO SCH ×2 (09:56→21:38)
[2016-04-19] MEDS: CLONAZEPAM 1 MG TABLET PO SCH ×2 (09:56→21:38)
[2016-04-19] MEDS: BUDESONIDE/FORMOTEROL 160-4.5 MCG 60 PUFF/6 GM MDI IH SCH ×2 (09:56→21:38)
[2016-04-19] MEDS: TIOTROPIUM BROMIDE DPI 5 CAP/KIT (18 MCG/CAP) IH SCH (09:56)
--- NOTE | 2016-04-19 19:38 | PDOC PROGRESS REPORT ---
Subjective Progress Note for:: 04/18/16 Subjective:: Patient seen by the bedside, she complained of congestion and shortness of breath Physical Exam Vital Signs: Temp Pulse Resp BP Pulse Ox 97.8 F 97 22 H 121/60 97 04/18/16 16:00 04/18/16 16:00 04/18/16 16:00 04/18/16 16:00 04/18/16 16:00 Intake & Output 04/17/16 04/18/16 04/19/16 06:59 06:59 06:59 Intake Total 1016 780 480 Output Total 4 620 600 Balance 1012 160 -120 General appearance: PRESENT: mild distress Eye exam: PRESENT: PERRLA Respiratory exam: PRESENT: crackles Cardiovascular exam: PRESENT: +S1, +S2 Results Laboratory Results: 04/16/16 05:25 04/16/16 05:25 Impressions: Acute Abdomen Series 04/10/16 22:09 IMPRESSION: NONSPECIFIC BOWEL GAS PATTERN WITHOUT EVIDENCE FOR OBSTRUCTION. Mild subsegmental atelectasis in both lung bases. Abdomen/Pelvis CT 04/10/16 23:38 IMPRESSION: 0.7 possible right distal ureteral stone. Mild prominence of the right renal collecting system. Consider surveillance with dynamic IV contrast CT/IVP of the renal system. Chest X-Ray 04/13/16 00:00 IMPRESSION: NO ACUTE RADIOGRAPHIC FINDING IN THE CHEST. Assessment & Plan - Diagnosis (1) Gastroenteritis Is this a current diagnosis for this admission?: Yes (2) Acute kidney injury Is this a current diagnosis for this admission?: Yes (3) Chronic obstructive lung disease Qualifiers: COPD type: unspecified COPD Qualified Code(s): J44.9 - Chronic obstructive pulmonary disease, unspecified Is this a current diagnosis for this admission?: Yes (4) Chronic respiratory failure Qualifiers: Respiratory failure complication: hypoxia Qualified Code(s): J96.11 - Chronic respiratory failure with hypoxia Is this a current diagnosis for this admission?: Yes (5) End stage chronic obstructive pulmonary disease Is this a current diagnosis for this admission?: Yes
[2016-04-19] MEDS: AZITHROMYCIN 250 MG TABLET PO SCH (21:38)
[2016-04-19] MEDS: ATORVASTATIN CALCIUM 10 MG TABLET PO SCH (21:38)
[2016-04-19] MEDS: CETIRIZINE 5 MG TABLET PO SCH (21:38)
[2016-04-20] MEDS: OXYCODONE HCL IR 5 MG TABLET PO PRN ×3 (01:21→20:14)
[2016-04-20] MEDS: OXYCODONE-ACETAMINOPHEN 5-325 MG TABLET PO PRN ×3 (01:21→20:15)
[2016-04-20] MEDS: LANSOPRAZOLE 30 MG TAB.RAP.DR PO SCH (05:07)
[2016-04-20] MEDS: PREGABALIN 75 MG CAPSULE PO SCH ×3 (05:07→23:20)
[2016-04-20] MEDS: IPRATROPIUM/ALBUTEROL 0.5-2.5 MG/3 ML AMPUL NEB SCH ×5 (07:23→23:39)
[2016-04-20] MEDS: BUDESONIDE/FORMOTEROL 160-4.5 MCG 60 PUFF/6 GM MDI IH SCH ×2 (09:51→23:20)
[2016-04-20] MEDS: TIOTROPIUM BROMIDE DPI 5 CAP/KIT (18 MCG/CAP) IH SCH (09:51)
[2016-04-20] MEDS: CLONAZEPAM 1 MG TABLET PO SCH ×2 (09:53→23:20)
[2016-04-20] MEDS: DULOXETINE HCL 30 MG CAPSULE.DR PO SCH ×2 (09:53→23:20)
--- NOTE | 2016-04-20 18:13 | PDOC PROGRESS REPORT ---
Subjective Progress Note for:: 04/19/16 Subjective:: She said she does not feel well today Physical Exam Vital Signs: Temp Pulse Resp BP Pulse Ox 97.6 F 95 20 112/56 L 100 04/19/16 15:28 04/19/16 15:28 04/19/16 15:28 04/19/16 15:28 04/19/16 15:28 Intake & Output 04/18/16 04/19/16 04/20/16 06:59 06:59 06:59 Intake Total 780 600 240 Output Total 620 1246 Balance 160 -646 240 Head exam: PRESENT: atraumatic, normocephalic Eye exam: ABSENT: scleral icterus Ear exam: PRESENT: normal external ear exam Respiratory exam: PRESENT: crackles Cardiovascular exam: PRESENT: +S1, +S2 Vascular exam: PRESENT: normal capillary refill GI/Abdominal exam: PRESENT: soft Rectal exam: PRESENT: deferred Neurological exam: PRESENT: alert, awake, oriented to person, oriented to place , oriented to time, oriented to situation, CN II-XII grossly intact Skin exam: PRESENT: dry, intact, warm Results Laboratory Results: 04/16/16 05:25 04/16/16 05:25 Impressions: Acute Abdomen Series 04/10/16 22:09 IMPRESSION: NONSPECIFIC BOWEL GAS PATTERN WITHOUT EVIDENCE FOR OBSTRUCTION. Mild subsegmental atelectasis in both lung bases. Abdomen/Pelvis CT 04/10/16 23:38 IMPRESSION: 0.7 possible right distal ureteral stone. Mild prominence of the right renal collecting system. Consider surveillance with dynamic IV contrast CT/IVP of the renal system. Chest X-Ray 04/13/16 00:00 IMPRESSION: NO ACUTE RADIOGRAPHIC FINDING IN THE CHEST. Assessment & Plan - Diagnosis (1) Gastroenteritis Is this a current diagnosis for this admission?: Yes (2) Acute kidney injury Is this a current diagnosis for this admission?: Yes (3) Chronic obstructive lung disease Qualifiers: COPD type: unspecified COPD Qualified Code(s): J44.9 - Chronic obstructive pulmonary disease, unspecified Is this a current diagnosis for this admission?: Yes (4) Chronic respiratory failure Qualifiers: Respiratory failure complication: hypoxia Qualified Code(s): J96.11 - Chronic respiratory failure with hypoxia Is this a current diagnosis for this admission?: Yes (5) End stage chronic obstructive pulmonary disease Is this a current diagnosis for this admission?: Yes
--- NOTE | 2016-04-20 18:27 | PDOC PROGRESS REPORT ---
Subjective Progress Note for:: 04/20/16 Subjective:: Patient was seen by the bedside, she said she does not feel well today. CT chest without contrast was done, the previously described spiculated nodule in the superior segment of the left lower lobe now measures 1.5 cm tis has slightly increased in size when compared to January. There is right lower lobe foci he has no disease Physical Exam Vital Signs: Temp Pulse Resp BP Pulse Ox 98.9 F 116 H 22 H 129/68 H 98 04/20/16 16:17 04/20/16 16:17 04/20/16 16:17 04/20/16 16:17 04/20/16 16:17 Intake & Output 04/19/16 04/20/16 04/21/16 06:59 06:59 06:59 Intake Total 600 240 200 Output Total 1246 400 0 Balance -646 -160 200 Respiratory exam: PRESENT: wheezes Cardiovascular exam: PRESENT: +S1, +S2 Results Laboratory Results: 04/16/16 05:25 04/16/16 05:25 Impressions: Acute Abdomen Series 04/10/16 22:09 IMPRESSION: NONSPECIFIC BOWEL GAS PATTERN WITHOUT EVIDENCE FOR OBSTRUCTION. Mild subsegmental atelectasis in both lung bases. Abdomen/Pelvis CT 04/10/16 23:38 IMPRESSION: 0.7 possible right distal ureteral stone. Mild prominence of the right renal collecting system. Consider surveillance with dynamic IV contrast CT/IVP of the renal system. Chest X-Ray 04/13/16 00:00 IMPRESSION: NO ACUTE RADIOGRAPHIC FINDING IN THE CHEST. Chest CT 04/20/16 00:00 IMPRESSION: The spiculated nodule in the left upper lobe has increased in size since January as described. There is a 2nd nodule in the posterior aspect of the right lower lobe. This is most likely infectious. There is right lower lobe atelectasis or pneumonia. Assessment & Plan - Diagnosis (1) Gastroenteritis Is this a current diagnosis for this admission?: Yes (2) Acute kidney injury Is this a current diagnosis for this admission?: Yes (3) Chronic obstructive lung disease Qualifiers: COPD type: unspecified COPD Qualified Code(s): J44.9 - Chronic obstructive pulmonary disease, unspecified Is this a current diagnosis for this admission?: YesPlan: Start DuoNeb every 2 hours (4) Chronic respiratory failure Qualifiers: Respiratory failure complication: hypoxia Qualified Code(s): J96.11 - Chronic respiratory failure with hypoxia Is this a current diagnosis for this admission?: Yes (5) End stage chronic obstructive pulmonary disease Is this a current diagnosis for this admission?: Yes
[2016-04-20] MEDS: CETIRIZINE 5 MG TABLET PO SCH (23:20)
[2016-04-20] MEDS: ATORVASTATIN CALCIUM 10 MG TABLET PO SCH (23:20)
[2016-04-20] MEDS: AZITHROMYCIN 250 MG TABLET PO SCH (23:20)
[2016-04-21] MEDS ORDERED: NORMAL SALINE 250 ML IV ONE (00:45)
[2016-04-21] MEDS: NORMAL SALINE 1000 ML 1,000 ML IV PRN ×2 (01:13→10:40)
[2016-04-21] MEDS: IPRATROPIUM/ALBUTEROL 0.5-2.5 MG/3 ML AMPUL NEB SCH ×10 (01:58→23:43)
[2016-04-21] MEDS: PREGABALIN 75 MG CAPSULE PO SCH ×3 (05:54→21:54)
[2016-04-21] MEDS: LANSOPRAZOLE 30 MG TAB.RAP.DR PO SCH (05:54)
[2016-04-21] MEDS: BUDESONIDE/FORMOTEROL 160-4.5 MCG 60 PUFF/6 GM MDI IH SCH ×2 (10:35→21:56)
[2016-04-21] MEDS: DULOXETINE HCL 30 MG CAPSULE.DR PO SCH ×2 (10:35→21:54)
[2016-04-21] MEDS: TIOTROPIUM BROMIDE DPI 5 CAP/KIT (18 MCG/CAP) IH SCH (10:36)
[2016-04-21] MEDS: CLONAZEPAM 1 MG TABLET PO SCH ×2 (10:40→21:54)
[2016-04-21 10:55] LABS: ABSOLUTE BASOPHILS # (AUTO) 0.1 10^3/uL (0.0-0.2); ABSOLUTE EOSINOPHILS # (AUTO) 0.1 10^3/uL (0.0-0.6); ABSOLUTE LYMPHOCYTES (AUTO) 1.8 10^3/uL (0.5-4.7); ABSOLUTE MONOCYTES (AUTO) 1.3 10^3/uL (0.1-1.4); ABSOLUTE NEUT (AUTO) 12.6 10^3/uL (1.7-8.2); BASOPHILS % (AUTO) 0.8 % (0-2); EOSINOPHILS % (AUTO) 0.5 % (0-6); HEMOGLOBIN 8.3 g/dL (12.0-15.5); HGB HCT DIFFERENCE -1.1; LYMPHOCYTES % (AUTO) 11.6 % (13-45); MEAN CORPUSCULAR HEMOGLOBIN 25.5 pg (27.0-33.4); MEAN CORPUSCULAR HGB CONC 31.8 g/dL (32.0-36.0); MEAN CORPUSCULAR VOLUME 80 fl (80-97); MONOCYTES % (AUTO) 8.1 % (3-13); RED BLOOD COUNT 3.25 10^6/uL (3.72-5.28); WHITE BLOOD COUNT 15.9 10^3/uL (4.0-10.5)
[2016-04-21 11:18] LABS: ANION GAP 12 (5-19); BLOOD UREA NITROGEN 23 mg/dL (7-20); CARBON DIOXIDE 26 mmol/L (22-30); CHLORIDE 104 mmol/L (98-107); CREATININE RESULT 0.88 mg/dL (0.52-1.25); GLUCOSE 105 mg/dL (75-110); SODIUM 141.9 mmol/L (137-145)
[2016-04-21] MEDS ORDERED: ACETAMINOPHEN 325 MG TABLET ONE (14:06)
--- NOTE | 2016-04-21 17:14 | PDOC PROGRESS REPORT ---
Subjective Progress Note for:: 04/21/16 Subjective:: Patient was seen by the bedside, she developed fever with temperature 101, and pneumonia. She has lung cancer and she was supposed to see the radiation oncologist tomorrow in [place] for [employer] treatment of her lung cancer. Unfortunately, she developed temperature of 101 with sinus tachycardia at 125 bpm Physical Exam Vital Signs: Temp Pulse Resp BP Pulse Ox 102.3 F H 124 H 18 131/61 H 95 04/21/16 12:02 04/21/16 16:00 04/21/16 16:00 04/21/16 12:02 04/21/16 16:00 Intake & Output 04/20/16 04/21/16 04/22/16 06:59 06:59 06:59 Intake Total 240 603 236 Output Total 400 400 Balance -160 203 236 General appearance: PRESENT: other - She is in distress with tachypnea Eye exam: PRESENT: PERRLA Respiratory exam: PRESENT: wheezes Cardiovascular exam: PRESENT: +S1, +S2 GI/Abdominal exam: PRESENT: soft Neurological exam: PRESENT: alert Results Laboratory Results: 04/21/16 10:35 04/21/16 10:35 04/21/16 04/21/16 10:35 10:35 WBC 15.9 H RBC 3.25 L Hgb 8.3 L Hct 26.0 L MCV 80 MCH 25.5 L MCHC 31.8 L RDW 16.0 H Plt Count 397 Seg Neutrophils % 79.0 H Lymphocytes % 11.6 L Monocytes % 8.1 Eosinophils % 0.5 Basophils % 0.8 Absolute Neutrophils 12.6 H Absolute Lymphocytes 1.8 Absolute Monocytes 1.3 Absolute Eosinophils 0.1 Absolute Basophils 0.1 Sodium 141.9 Potassium 4.0 Chloride 104 Carbon Dioxide 26 Anion Gap 12 BUN 23 H Creatinine 0.88 Est GFR ( Amer) > 60 Est GFR (Non-Af Amer) > 60 Glucose 105 Calcium 9.0 Magnesium 2.0 Impressions: Acute Abdomen Series 04/10/16 22:09 IMPRESSION: NONSPECIFIC BOWEL GAS PATTERN WITHOUT EVIDENCE FOR OBSTRUCTION. Mild subsegmental atelectasis in both lung bases. Abdomen/Pelvis CT 04/10/16 23:38 IMPRESSION: 0.7 possible right distal ureteral stone. Mild prominence of the right renal collecting system. Consider surveillance with dynamic IV contrast CT/IVP of the renal system. Chest X-Ray 04/13/16 00:00 IMPRESSION: NO ACUTE RADIOGRAPHIC FINDING IN THE CHEST. Chest CT 04/20/16 00:00 IMPRESSION: The spiculated nodule in the left upper lobe has increased in size since January as described. There is a 2nd nodule in the posterior aspect of the right lower lobe. This is most likely infectious. There is right lower lobe atelectasis or pneumonia. Assessment & Plan - Diagnosis (1) Gastroenteritis Is this a current diagnosis for this admission?: Yes (2) Acute kidney injury Is this a current diagnosis for this admission?: Yes (3) Chronic obstructive lung disease Qualifiers: COPD type: unspecified COPD Qualified Code(s): J44.9 - Chronic obstructive pulmonary disease, unspecified Is this a current diagnosis for this admission?: Yes (4) Chronic respiratory failure Qualifiers: Respiratory failure complication: hypoxia Qualified Code(s): J96.11 - Chronic respiratory failure with hypoxia Is this a current diagnosis for this admission?: Yes (5) End stage chronic obstructive pulmonary disease Is this a current diagnosis for this admission?: Yes (6) Nosocomial pneumonia Is this a current diagnosis for this admission?: YesPlan: She has nosocomial pneumonia, she would be treated with IV antibiotic to cover MRSA and gram-negative organisms. She has penicillin allergy, she will be treated with IV aztreonam, vancomycin, she is already on Zithromax. (7) Squamous cell carcinoma of lung, stage I Qualifiers: Laterality: left Qualified Code(s): C34.92 - Malignant neoplasm of unspecified part of left bronchus or lung Is this a current diagnosis for this admission?: YesPlan: She has squamous cell malignant neoplasm of the lung, stage I with potential for cure, she was supposed to go to [place] tomorrow to start the process for CyberKnife therapy for the cancer
[2016-04-21] MEDS ORDERED: VANCOMYCIN HCL 0 MG in DEXTROSE 5%-WATER 250 ML IV NR (17:15)
[2016-04-21] MEDS ORDERED: AZTREONAM INJ 1 GM VIAL IV PRN (17:17)
[2016-04-21] MEDS ORDERED: VANCOMYCIN HCL INJ 1000 MG VIAL IV PRN (17:20)
[2016-04-21] MEDS ORDERED: AZTREONAM 1 GM in DEXTROSE 5%-WATER 50 ML IV SCH (18:00)
[2016-04-21] MEDS ORDERED: VANCOMYCIN HCL 1,000 MG in DEXTROSE 5%-WATER 250 ML IV ONE (18:00)
[2016-04-21 18:23] LABS: CREATINE KINASE MB 0.58 ng/mL (<4.55); TROPONIN I < 0.012 ng/mL
[2016-04-21] MEDS ORDERED: ERTAPENEM SODIUM INJ 1 GM VIAL ONE (20:49)
[2016-04-21] MEDS ORDERED: VANCOMYCIN HCL INJ 1000 MG VIAL ONE (20:49)
[2016-04-21] MEDS ORDERED: AZTREONAM INJ 1 GM VIAL ONE (20:49)
[2016-04-21] MEDS ORDERED: ACETAMINOPHEN 325 MG TABLET PO PRN (21:04)
[2016-04-21] MEDS: AZTREONAM 1 GM in DEXTROSE 5%-WATER 50 ML IV SCH (21:14)
--- NOTE | 2016-04-21 21:24 | EKG REPORT ---
SEVERITY:- ABNORMAL ECG - SINUS TACHYCARDIA WITH APCs LAD, CONSIDER LAFB OR INFERIOR INFARCT BORDERLINE PROLONGED QT INTERVAL : Confirmed by: Latoya Vasquez 21-Apr-2016 21:23:16
--- NOTE | 2016-04-21 21:26 | EKG REPORT ---
SEVERITY:- ABNORMAL ECG - SINUS TACHYCARDIA ATRIAL PREMATURE COMPLEX LEFT ANTERIOR FASCICULAR BLOCK BORDERLINE T ABNORMALITIES, ANT-LAT LEADS : Confirmed by: Latoya Vasquez 21-Apr-2016 21:26:13
[2016-04-21] MEDS: ATORVASTATIN CALCIUM 10 MG TABLET PO SCH (21:54)
[2016-04-21] MEDS: AZITHROMYCIN 250 MG TABLET PO SCH (21:54)
[2016-04-21] MEDS: CHLORPHENIRAMINE MALEATE 4 MG TABLET PO SCH (21:54)
[2016-04-21] MEDS: OXYCODONE HCL IR 5 MG TABLET PO PRN (21:55)
[2016-04-21] MEDS: CETIRIZINE 5 MG TABLET PO SCH (22:52)
[2016-04-21] MEDS: ERTAPENEM SODIUM 1 GM in NORMAL SALINE 50 ML IV SCH (23:13)
[2016-04-22] MEDS: IPRATROPIUM/ALBUTEROL 0.5-2.5 MG/3 ML AMPUL NEB SCH ×5 (04:17→19:55)
[2016-04-22] MEDS: PREGABALIN 75 MG CAPSULE PO SCH ×3 (06:20→21:11)
[2016-04-22] MEDS: AZTREONAM 1 GM in DEXTROSE 5%-WATER 50 ML IV SCH ×3 (06:21→23:07)
[2016-04-22] MEDS: LANSOPRAZOLE 30 MG TAB.RAP.DR PO SCH (06:21)
[2016-04-22] MEDS: CLONAZEPAM 1 MG TABLET PO SCH ×2 (09:50→21:11)
[2016-04-22] MEDS: DULOXETINE HCL 30 MG CAPSULE.DR PO SCH ×2 (09:50→21:10)
[2016-04-22] MEDS: OXYCODONE HCL IR 5 MG TABLET PO PRN (09:57)
[2016-04-22] MEDS: BUDESONIDE/FORMOTEROL 160-4.5 MCG 60 PUFF/6 GM MDI IH SCH ×2 (09:58→21:15)
[2016-04-22] MEDS: NORMAL SALINE 1000 ML 1,000 ML IV PRN (12:04)
[2016-04-22] MEDS: OXYCODONE-ACETAMINOPHEN 5-325 MG TABLET PO PRN ×2 (12:58→21:11)
[2016-04-22] MEDS: TIOTROPIUM BROMIDE DPI 5 CAP/KIT (18 MCG/CAP) IH SCH (14:36)
[2016-04-22] MEDS: ERTAPENEM SODIUM 1 GM in NORMAL SALINE 50 ML IV SCH (18:03)
[2016-04-22 19:14] LABS: ABSOLUTE BASOPHILS # (AUTO) 0.1 10^3/uL (0.0-0.2); ABSOLUTE EOSINOPHILS # (AUTO) 0.3 10^3/uL (0.0-0.6); ABSOLUTE LYMPHOCYTES (AUTO) 1.7 10^3/uL (0.5-4.7); ABSOLUTE MONOCYTES (AUTO) 1.1 10^3/uL (0.1-1.4); ABSOLUTE NEUT (AUTO) 9.3 10^3/uL (1.7-8.2); BASOPHILS % (AUTO) 0.5 % (0-2); EOSINOPHILS % (AUTO) 2.8 % (0-6); HEMATOCRIT 26.6 % (36.0-47.0); HEMOGLOBIN 8.3 g/dL (12.0-15.5); HGB HCT DIFFERENCE -1.7; LYMPHOCYTES % (AUTO) 13.9 % (13-45); MEAN CORPUSCULAR HEMOGLOBIN 25.2 pg (27.0-33.4); MEAN CORPUSCULAR HGB CONC 31.2 g/dL (32.0-36.0); MEAN CORPUSCULAR VOLUME 81 fl (80-97); MONOCYTES % (AUTO) 8.9 % (3-13); RED CELL DISTRIBUTION WIDTH 16.3 % (11.5-14.0); SEGMENTED NEUTROPHILS % (AUTO) 73.9 % (42-78); WHITE BLOOD COUNT 12.5 10^3/uL (4.0-10.5)
[2016-04-22 19:43] LABS: ALANINE AMINOTRANSFERASE 25 U/L (9-52); ALBUMIN 2.8 g/dL (3.5-5.0); ALKALINE PHOSPHATASE 102 U/L (38-126); ANION GAP 10 (5-19); ASPARTATE AMINO TRANSFERASE 31 U/L (14-36); BILIRUBIN,TOTAL 0.2 mg/dL (0.2-1.3); BLOOD UREA NITROGEN 18 mg/dL (7-20); CALCIUM 8.6 mg/dL (8.4-10.2); CARBON DIOXIDE 25 mmol/L (22-30); CHLORIDE 106 mmol/L (98-107); CREATININE RESULT 0.75 mg/dL (0.52-1.25); GLUCOSE 104 mg/dL (75-110); POTASSIUM 4.1 mmol/L (3.6-5.0); SODIUM 140.7 mmol/L (137-145); TOTAL PROTEIN 5.2 g/dL (6.3-8.2)
[2016-04-22] MEDS: AZITHROMYCIN 250 MG TABLET PO SCH (21:10)
[2016-04-22] MEDS: ATORVASTATIN CALCIUM 10 MG TABLET PO SCH (21:12)
[2016-04-22] MEDS: CHLORPHENIRAMINE MALEATE 4 MG TABLET PO SCH (21:14)
[2016-04-22] MEDS: VANCOMYCIN HCL 500 MG in DEXTROSE 5%-WATER 100 ML IV SCH (21:14)
[2016-04-22] MEDS: CETIRIZINE 5 MG TABLET PO SCH (21:16)
[2016-04-22 22:54] LABS: APPEARANCE,URINE SLIGHTLY-CLOUDY; BILIRUBIN,URINE NEGATIVE (NEGATIVE); GLUCOSE, URINE NEGATIVE (NEGATIVE); KETONES,URINE NEGATIVE (NEGATIVE); LEUKOCYTE ESTERASE,URINE NEGATIVE (NEGATIVE); NITRITE,URINE NEGATIVE (NEGATIVE); PROTEIN,URINE NEGATIVE (NEGATIVE); UROBILINOGEN,URINE NEGATIVE mg/dL (<2.0)
[2016-04-23] MEDS: IPRATROPIUM/ALBUTEROL 0.5-2.5 MG/3 ML AMPUL NEB SCH ×6 (00:13→20:04)
[2016-04-23] MEDS: NORMAL SALINE 1000 ML 1,000 ML IV PRN ×3 (01:41→23:00)
[2016-04-23] MEDS: AZTREONAM 1 GM in DEXTROSE 5%-WATER 50 ML IV SCH ×3 (05:31→22:58)
[2016-04-23] MEDS: LANSOPRAZOLE 30 MG TAB.RAP.DR PO SCH (05:33)
[2016-04-23] MEDS: PREGABALIN 75 MG CAPSULE PO SCH ×3 (05:33→22:58)
[2016-04-23] MEDS: TIOTROPIUM BROMIDE DPI 5 CAP/KIT (18 MCG/CAP) IH SCH (09:03)
[2016-04-23] MEDS: BUDESONIDE/FORMOTEROL 160-4.5 MCG 60 PUFF/6 GM MDI IH SCH ×2 (09:03→22:59)
[2016-04-23] MEDS ORDERED: OXYCODONE HCL IR 5 MG TABLET ONE (09:03)
[2016-04-23] MEDS: DULOXETINE HCL 30 MG CAPSULE.DR PO SCH ×2 (09:04→22:58)
[2016-04-23] MEDS: CLONAZEPAM 1 MG TABLET PO SCH ×2 (09:04→23:08)
[2016-04-23] MEDS: OXYCODONE HCL IR 5 MG TABLET PO PRN (09:04)
[2016-04-23] MEDS: VANCOMYCIN HCL 500 MG in DEXTROSE 5%-WATER 100 ML IV SCH ×2 (09:06→22:57)
[2016-04-23 17:26] LABS: ABSOLUTE BASOPHILS # (AUTO) 0.1 10^3/uL (0.0-0.2); ABSOLUTE EOSINOPHILS # (AUTO) 0.5 10^3/uL (0.0-0.6); ABSOLUTE LYMPHOCYTES (AUTO) 1.7 10^3/uL (0.5-4.7); ABSOLUTE MONOCYTES (AUTO) 0.9 10^3/uL (0.1-1.4); ABSOLUTE NEUT (AUTO) 5.9 10^3/uL (1.7-8.2); BASOPHILS % (AUTO) 0.6 % (0-2); EOSINOPHILS % (AUTO) 5.2 % (0-6); HEMATOCRIT 25.3 % (36.0-47.0); HEMOGLOBIN 8.2 g/dL (12.0-15.5); HGB HCT DIFFERENCE -0.7; LYMPHOCYTES % (AUTO) 18.8 % (13-45); MEAN CORPUSCULAR HGB CONC 32.5 g/dL (32.0-36.0); MEAN CORPUSCULAR VOLUME 80 fl (80-97); MONOCYTES % (AUTO) 9.7 % (3-13); RED BLOOD COUNT 3.16 10^6/uL (3.72-5.28); SEGMENTED NEUTROPHILS % (AUTO) 65.7 % (42-78); WHITE BLOOD COUNT 9.1 10^3/uL (4.0-10.5)
--- NOTE | 2016-04-23 18:47 | PDOC PROGRESS REPORT ---
Subjective Progress Note for:: 04/23/16 Subjective:: Patient was seen by the bedside, she is responding to treatment with IV antibiotic, she is also working with physical therapy, she is able to make some steps. Physical Exam Vital Signs: Temp Pulse Resp BP Pulse Ox 97.6 F 100 16 126/71 H 98 04/23/16 15:49 04/23/16 15:49 04/23/16 15:49 04/23/16 15:49 04/23/16 15:49 Intake & Output 04/22/16 04/23/16 04/24/16 06:59 06:59 06:59 Intake Total 2951 3460 720 Balance 2951 3460 720 Weight 70 kg General appearance: PRESENT: no acute distress Head exam: PRESENT: atraumatic, normocephalic Respiratory exam: PRESENT: rhonchi Cardiovascular exam: PRESENT: +S1, +S2 GI/Abdominal exam: PRESENT: soft Rectal exam: PRESENT: deferred Neurological exam: PRESENT: alert Results Laboratory Results: 04/23/16 17:10 04/22/16 18:46 04/22/16 04/22/16 04/22/16 18:46 18:46 22:25 WBC 12.5 H RBC 3.30 L Hgb 8.3 L Hct 26.6 L MCV 81 MCH 25.2 L MCHC 31.2 L RDW 16.3 H Plt Count 386 Seg Neutrophils % 73.9 Lymphocytes % 13.9 Monocytes % 8.9 Eosinophils % 2.8 Basophils % 0.5 Absolute Neutrophils 9.3 H Absolute Lymphocytes 1.7 Absolute Monocytes 1.1 Absolute Eosinophils 0.3 Absolute Basophils 0.1 Sodium 140.7 Potassium 4.1 Chloride 106 Carbon Dioxide 25 Anion Gap 10 BUN 18 Creatinine 0.75 Est GFR ( Amer) > 60 Est GFR (Non-Af Amer) > 60 Glucose 104 Calcium 8.6 Total Bilirubin 0.2 AST 31 ALT 25 Alkaline Phosphatase 102 Total Protein 5.2 L Albumin 2.8 L Urine Color YELLOW Urine Appearance SLIGHTLY-CLOUDY Urine pH 5.0 Ur Specific [place] 1.020 Urine Protein NEGATIVE Urine Glucose (UA) NEGATIVE Urine Ketones NEGATIVE Urine Blood SMALL H Urine Nitrite NEGATIVE Ur Leukocyte Esterase NEGATIVE Urine WBC (Auto) 7 Urine RBC (Auto) 9 04/23/16 17:10 WBC 9.1 RBC 3.16 L Hgb 8.2 L Hct 25.3 L MCV 80 MCH 26.0 L MCHC 32.5 RDW 16.0 H Plt Count 374 Seg Neutrophils % 65.7 Lymphocytes % 18.8 Monocytes % 9.7 Eosinophils % 5.2 Basophils % 0.6 Absolute Neutrophils 5.9 Absolute Lymphocytes 1.7 Absolute Monocytes 0.9 Absolute Eosinophils 0.5 Absolute Basophils 0.1 Sodium Potassium Chloride Carbon Dioxide Anion Gap BUN Creatinine Est GFR ( Amer) Est GFR (Non-Af Amer) Glucose Calcium Total Bilirubin AST ALT Alkaline Phosphatase Total Protein Albumin Urine Color Urine Appearance Urine pH Ur Specific [place] Urine Protein Urine Glucose (UA) Urine Ketones Urine Blood Urine Nitrite Ur Leukocyte Esterase Urine WBC (Auto) Urine RBC (Auto) 04/21/16 04/21/16 17:30 17:40 Creatine Kinase 214 H CK-MB (CK-2) 0.58 Troponin I < 0.012 Impressions: Acute Abdomen Series 04/10/16 22:09 IMPRESSION: NONSPECIFIC BOWEL GAS PATTERN WITHOUT EVIDENCE FOR OBSTRUCTION. Mild subsegmental atelectasis in both lung bases. Abdomen/Pelvis CT 04/10/16 23:38 IMPRESSION: 0.7 possible right distal ureteral stone. Mild prominence of the right renal collecting system. Consider surveillance with dynamic IV contrast CT/IVP of the renal system. Chest X-Ray 04/13/16 00:00 IMPRESSION: NO ACUTE RADIOGRAPHIC FINDING IN THE CHEST. Chest CT 04/20/16 00:00 IMPRESSION: The spiculated nodule in the left upper lobe has increased in size since January as described. There is a 2nd nodule in the posterior aspect of the right lower lobe. This is most likely infectious. There is right lower lobe atelectasis or pneumonia. Assessment & Plan - Diagnosis (1) Gastroenteritis Is this a current diagnosis for this admission?: Yes (2) Acute kidney injury Is this a current diagnosis for this admission?: Yes (3) Chronic obstructive lung disease Qualifiers: COPD type: unspecified COPD Qualified Code(s): J44.9 - Chronic obstructive pulmonary disease, unspecified Is this a current diagnosis for this admission?: Yes (4) Chronic respiratory failure Qualifiers: Respiratory failure complication: hypoxia Qualified Code(s): J96.11 - Chronic respiratory failure with hypoxia Is this a current diagnosis for this admission?: Yes (5) End stage chronic obstructive pulmonary disease Is this a current diagnosis for this admission?: Yes (6) Nosocomial pneumonia Is this a current diagnosis for this admission?: YesPlan: She has nosocomial pneumonia on empiric IV antibiotic and she is responding to antibiotic, the white blood cell count today is normal for the first time in couple of days (7) Squamous cell carcinoma of lung, stage I Qualifiers: Laterality: left Qualified Code(s): C34.92 - Malignant neoplasm of unspecified part of left bronchus or lung Is this a current diagnosis for this admission?: Yes
[2016-04-23] MEDS: ERTAPENEM SODIUM 1 GM in NORMAL SALINE 50 ML IV SCH (19:07)
[2016-04-23] MEDS: OXYCODONE-ACETAMINOPHEN 5-325 MG TABLET PO PRN (20:39)
[2016-04-23 22:41] LABS: CREATININE RESULT 0.62 mg/dL (0.52-1.25)
[2016-04-23 22:51] LABS: TROUGH DRAW TIME 2138
[2016-04-23] MEDS: ATORVASTATIN CALCIUM 10 MG TABLET PO SCH (22:58)
[2016-04-23] MEDS: CETIRIZINE 5 MG TABLET PO SCH (22:59)
[2016-04-24] MEDS: IPRATROPIUM/ALBUTEROL 0.5-2.5 MG/3 ML AMPUL NEB SCH ×6 (00:19→20:59)
[2016-04-24] MEDS: AZTREONAM 1 GM in DEXTROSE 5%-WATER 50 ML IV SCH ×3 (06:11→22:14)
[2016-04-24] MEDS: LANSOPRAZOLE 30 MG TAB.RAP.DR PO SCH (06:12)
[2016-04-24] MEDS: PREGABALIN 75 MG CAPSULE PO SCH ×3 (06:12→22:16)
[2016-04-24] MEDS: OXYCODONE-ACETAMINOPHEN 5-325 MG TABLET PO PRN ×2 (06:24→14:37)
[2016-04-24] MEDS: CLONAZEPAM 1 MG TABLET PO SCH ×2 (10:17→22:16)
[2016-04-24] MEDS: DULOXETINE HCL 30 MG CAPSULE.DR PO SCH ×2 (10:18→22:15)
[2016-04-24] MEDS: VANCOMYCIN HCL 500 MG in DEXTROSE 5%-WATER 100 ML IV SCH (10:19)
[2016-04-24] MEDS: BUDESONIDE/FORMOTEROL 160-4.5 MCG 60 PUFF/6 GM MDI IH SCH ×2 (10:20→22:17)
[2016-04-24] MEDS: TIOTROPIUM BROMIDE DPI 5 CAP/KIT (18 MCG/CAP) IH SCH (10:22)
[2016-04-24] MEDS: NORMAL SALINE 1000 ML 1,000 ML IV PRN ×2 (12:25→23:07)
--- NOTE | 2016-04-24 20:12 | PDOC PROGRESS REPORT ---
Subjective Progress Note for:: 04/24/16 Subjective:: Patient was seen by the bedside, Physical Exam Vital Signs: Temp Pulse Resp BP Pulse Ox 97.7 F 92 19 134/76 H 99 04/24/16 16:06 04/24/16 16:06 04/24/16 16:06 04/24/16 16:06 04/24/16 16:06 Intake & Output 04/23/16 04/24/16 04/25/16 06:59 06:59 06:59 Intake Total 3460 2881 1455 Output Total 400 Balance 3460 2881 1055 Weight 70 kg 76.6 kg General appearance: PRESENT: mild distress Eye exam: PRESENT: PERRLA Respiratory exam: PRESENT: wheezes Cardiovascular exam: PRESENT: +S1, +S2 GI/Abdominal exam: PRESENT: soft Results Laboratory Results: 04/23/16 17:10 04/23/16 21:38 04/23/16 21:38 Creatinine 0.62 Est GFR ( Amer) > 60 Est GFR (Non-Af Amer) > 60 04/22/16 22:25 Clean Catch Midstream Urine Culture - Final C.albicans/C.dubliniensis 04/21/16 04/21/16 17:30 17:40 Creatine Kinase 214 H CK-MB (CK-2) 0.58 Troponin I < 0.012 Impressions: Acute Abdomen Series 04/10/16 22:09 IMPRESSION: NONSPECIFIC BOWEL GAS PATTERN WITHOUT EVIDENCE FOR OBSTRUCTION. Mild subsegmental atelectasis in both lung bases. Abdomen/Pelvis CT 04/10/16 23:38 IMPRESSION: 0.7 possible right distal ureteral stone. Mild prominence of the right renal collecting system. Consider surveillance with dynamic IV contrast CT/IVP of the renal system. Chest X-Ray 04/13/16 00:00 IMPRESSION: NO ACUTE RADIOGRAPHIC FINDING IN THE CHEST. Chest CT 04/20/16 00:00 IMPRESSION: The spiculated nodule in the left upper lobe has increased in size since January as described. There is a 2nd nodule in the posterior aspect of the right lower lobe. This is most likely infectious. There is right lower lobe atelectasis or pneumonia. Assessment & Plan - Diagnosis (1) Nosocomial pneumonia Is this a current diagnosis for this admission?: YesPlan: Patient presently on IV vancomycin and aztreonam empirically for MRSA and gram- negative organisms (2) Gastroenteritis Is this a current diagnosis for this admission?: Yes (3) Acute kidney injury Is this a current diagnosis for this admission?: Yes (4) Chronic obstructive lung disease Qualifiers: COPD type: unspecified COPD Qualified Code(s): J44.9 - Chronic obstructive pulmonary disease, unspecified Is this a current diagnosis for this admission?: Yes (5) Chronic respiratory failure Qualifiers: Respiratory failure complication: hypoxia Qualified Code(s): J96.11 - Chronic respiratory failure with hypoxia Is this a current diagnosis for this admission?: Yes (6) End stage chronic obstructive pulmonary disease Is this a current diagnosis for this admission?: Yes (7) Squamous cell carcinoma of lung, stage I Qualifiers: Laterality: left Qualified Code(s): C34.92 - Malignant neoplasm of unspecified part of left bronchus or lung Is this a current diagnosis for this admission?: Yes
[2016-04-24] MEDS: ATORVASTATIN CALCIUM 10 MG TABLET PO SCH (22:15)
[2016-04-24] MEDS: CETIRIZINE 5 MG TABLET PO SCH (22:16)
[2016-04-24] MEDS: VANCOMYCIN HCL 1,000 MG in DEXTROSE 5%-WATER 250 ML IV SCH (22:16)
[2016-04-25] MEDS: IPRATROPIUM/ALBUTEROL 0.5-2.5 MG/3 ML AMPUL NEB SCH ×7 (00:40→23:41)
[2016-04-25] MEDS: OXYCODONE-ACETAMINOPHEN 5-325 MG TABLET PO PRN (04:43)
[2016-04-25] MEDS: LANSOPRAZOLE 30 MG TAB.RAP.DR PO SCH (06:42)
[2016-04-25] MEDS: AZTREONAM 1 GM in DEXTROSE 5%-WATER 50 ML IV SCH ×3 (06:44→22:38)
[2016-04-25] MEDS: PREGABALIN 75 MG CAPSULE PO SCH ×3 (06:44→22:37)
[2016-04-25] MEDS: OXYCODONE HCL IR 5 MG TABLET PO PRN (08:47)
[2016-04-25] MEDS ORDERED: ERGOCALCIFEROL (VITAMIN D2) 50000 UNIT (1.25 MG) CAPSULE PO SCH (10:00)
[2016-04-25] MEDS: CLONAZEPAM 1 MG TABLET PO SCH ×2 (11:13→22:37)
[2016-04-25] MEDS: DULOXETINE HCL 30 MG CAPSULE.DR PO SCH ×2 (11:13→22:37)
[2016-04-25] MEDS: BUDESONIDE/FORMOTEROL 160-4.5 MCG 60 PUFF/6 GM MDI IH SCH ×2 (11:14→22:41)
[2016-04-25] MEDS: VANCOMYCIN HCL 1,000 MG in DEXTROSE 5%-WATER 250 ML IV SCH ×2 (11:14→22:45)
[2016-04-25] MEDS: TIOTROPIUM BROMIDE DPI 5 CAP/KIT (18 MCG/CAP) IH SCH (11:14)
[2016-04-25] MEDS: NORMAL SALINE 1000 ML 1,000 ML IV PRN (11:18)
[2016-04-25] MEDS: ATORVASTATIN CALCIUM 10 MG TABLET PO SCH (22:38)
[2016-04-25] MEDS: CETIRIZINE 5 MG TABLET PO SCH (22:38)
[2016-04-26] MEDS: IPRATROPIUM/ALBUTEROL 0.5-2.5 MG/3 ML AMPUL NEB SCH ×6 (03:38→23:35)
[2016-04-26] MEDS: PREGABALIN 75 MG CAPSULE PO SCH ×3 (06:46→21:21)
[2016-04-26] MEDS: LANSOPRAZOLE 30 MG TAB.RAP.DR PO SCH (06:46)
[2016-04-26] MEDS: NORMAL SALINE 1000 ML 1,000 ML IV PRN (06:47)
[2016-04-26] MEDS: AZTREONAM 1 GM in DEXTROSE 5%-WATER 50 ML IV SCH (06:47)
[2016-04-26] MEDS: OXYCODONE-ACETAMINOPHEN 5-325 MG TABLET PO PRN (08:37)
[2016-04-26] MEDS: CLONAZEPAM 1 MG TABLET PO SCH (10:21)
[2016-04-26] MEDS: DULOXETINE HCL 30 MG CAPSULE.DR PO SCH ×2 (10:21→21:22)
[2016-04-26] MEDS: TIOTROPIUM BROMIDE DPI 5 CAP/KIT (18 MCG/CAP) IH SCH (10:22)
[2016-04-26] MEDS: BUDESONIDE/FORMOTEROL 160-4.5 MCG 60 PUFF/6 GM MDI IH SCH ×2 (10:22→21:22)
[2016-04-26 11:08] LABS: CREATININE RESULT 0.56 mg/dL (0.52-1.25)
[2016-04-26] MEDS ORDERED: LEVOFLOXACIN 750 MG TABLET PO SCH (18:00)
--- NOTE | 2016-04-26 20:57 | PDOC DISCHARGE SUMMARY ---
General - Admit/Disc Date/PCP Admission Date/Primary Care Provider: 04/14/16 11:02 NATACHA ENGLAND, Discharge Date: 04/26/16 - Discharge Diagnosis (1) Nosocomial pneumonia Is this a current diagnosis for this admission?: Yes (2) Gastroenteritis Is this a current diagnosis for this admission?: Yes (3) Acute kidney injury Is this a current diagnosis for this admission?: Yes (4) Chronic obstructive lung disease Is this a current diagnosis for this admission?: Yes (5) Chronic respiratory failure Is this a current diagnosis for this admission?: Yes (6) End stage chronic obstructive pulmonary disease Is this a current diagnosis for this admission?: Yes (7) Squamous cell carcinoma of lung, stage I Is this a current diagnosis for this admission?: Yes - Additional Information Resuscitation Status: Full Code Discharge Activity: Activity As Tolerated, Balance Activity w/Rest Home Medications: Albuterol Sulfate [Proair HFA] 1 puff IH PRN PRN 10/08/14 Fluconazole [Diflucan] 100 mg PO DAILY 10/08/14 Prednisone [Deltasone 20 mg Tablet] 40 mg PO DAILY #0 tablet 03/13/15 Amlodipine Besylate 5 mg PO DAILY 02/08/16 Clonazepam [Klonopin] 0.5 mg PO BID 02/08/16 Clonidine HCl 0.1 mg PO BID 02/08/16 Duloxetine HCl 60 mg PO BID 02/08/16 Ergocalciferol (Vitamin D2) [Vitamin D2] 50,000 unit PO [id number] 02/08/16 Levocetirizine Dihydrochloride [Xyzal 5 mg Tablet] 5 mg PO QHS 02/08/16 Pravastatin Sodium 40 mg PO QHS 02/08/16 Pregabalin [Lyrica 75 mg Capsule] 75 mg PO TID 02/08/16 Valsartan 160 mg PO BID 02/08/16 Albuterol Sulfate [Proair HFA] 1 - 2 puff IH Q4 PRN #1 inhaler 02/27/16 Budesonide/Formoterol Fumarate [Symbicort HFA 160-4.5 mcg Inhaler 6 gm] 2 puff IH Q12 #1 inhaler 02/27/16 Oxycodone HCl/Acetaminophen [Percocet 10-325 mg Tablet] 1 each PO Q6H #60 02/26 Tiotropium [place] [Spiriva Handihaler 18 mcg/dose (30 Dose)] 1 cap IH DAILY # 30 capsule 02/27/16 Omeprazole 40 mg PO DAILY 04/11/16 History of Present Illness History of Present Illness: HUNTER GRANADOS is a 71 year old female, she has end-stage COPD and malignant neoplasm of the lung, she came to the emergency room because of diarrhea and vomiting associated with abdominal pain, in the emergency room she she was evaluated, CT scan of abdomen and pelvis was done and it was negative for an acute pathology. There was evidence of dehydration, that was elevated BUN/ creatinine and also leukocytosis Hospital Course Hospital Course: She was discharged initially on 03/26/2015, but the discharge was canceled because she developed nosocomial pneumonia, she was empirically treated with IV antibiotic, Levaquin, vancomycin and ertapenem. She has squamous cell lung cancer and she is scheduled for [facility] radiation therapy on Friday. She has end-stage COPD with baseline wheezing. Physical Exam Vital Signs: Temp Pulse Resp BP Pulse Ox 98.1 F 95 24 H 121/60 100 04/26/16 20:11 04/26/16 20:11 04/26/16 20:11 04/26/16 20:11 04/26/16 20:11 Intake & Output 04/25/16 04/26/16 04/27/16 06:59 06:59 06:59 Intake Total 3363 2596 986 Output Total 400 Balance 2963 2596 986 Weight 75.4 kg 76 kg General appearance: PRESENT: no acute distress Eye exam: PRESENT: PERRLA Respiratory exam: PRESENT: wheezes Cardiovascular exam: PRESENT: +S1, +S2 GI/Abdominal exam: PRESENT: firm Results Laboratory Results: 04/23/16 17:10 04/26/16 09:59 04/26/16 09:59 Creatinine 0.56 Est GFR ( Amer) > 60 Est GFR (Non-Af Amer) > 60 04/21/16 14:46 Blood Blood Culture - Final NO GROWTH IN 5 DAYS 04/21/16 13:58 Blood Blood Culture - Final NO GROWTH IN 5 DAYS 04/22/16 22:25 Stool - Stool - Final 04/22/16 22:25 Stool - Stool Stool Culture - Final NO SALMONELLA, SHIGELLA, CAMPYLOBACTER, OR E.COLI 0157 RECOVERED. NEGATIVE FOR SHIGA TOXINS 1&2. 04/21/16 04/21/16 17:30 17:40 Creatine Kinase 214 H CK-MB (CK-2) 0.58 Troponin I < 0.012 Impressions: Acute Abdomen Series 04/10/16 22:09 IMPRESSION: NONSPECIFIC BOWEL GAS PATTERN WITHOUT EVIDENCE FOR OBSTRUCTION. Mild subsegmental atelectasis in both lung bases. Abdomen/Pelvis CT 04/10/16 23:38 IMPRESSION: 0.7 possible right distal ureteral stone. Mild prominence of the right renal collecting system. Consider surveillance with dynamic IV contrast CT/IVP of the renal system. Chest X-Ray 04/13/16 00:00 IMPRESSION: NO ACUTE RADIOGRAPHIC FINDING IN THE CHEST. Chest CT 04/20/16 00:00 IMPRESSION: The spiculated nodule in the left upper lobe has increased in size since January as described. There is a 2nd nodule in the posterior aspect of the right lower lobe. This is most likely infectious. There is right lower lobe atelectasis or pneumonia.
--- NOTE | 2016-04-26 20:58 | PDOC PROGRESS REPORT ---
Subjective Progress Note for:: 04/25/16 Subjective:: Patient was seen by the bedside. Hopefully she'll be discharged home in the morning Physical Exam Vital Signs: Temp Pulse Resp BP Pulse Ox 98.4 F 94 19 144/77 H 100 04/25/16 16:06 04/25/16 16:06 04/25/16 16:06 04/25/16 16:06 04/25/16 16:06 Intake & Output 04/24/16 04/25/16 04/26/16 06:59 06:59 06:59 Intake Total 2881 3363 1246 Output Total 400 Balance 2881 2963 1246 Weight 76.6 kg 75.4 kg General appearance: PRESENT: mild distress Eye exam: PRESENT: PERRLA Respiratory exam: PRESENT: crackles Cardiovascular exam: PRESENT: +S1, +S2 Neurological exam: PRESENT: alert Results Laboratory Results: 04/23/16 17:10 04/23/16 21:38 04/21/16 04/21/16 17:30 17:40 Creatine Kinase 214 H CK-MB (CK-2) 0.58 Troponin I < 0.012 Impressions: Acute Abdomen Series 04/10/16 22:09 IMPRESSION: NONSPECIFIC BOWEL GAS PATTERN WITHOUT EVIDENCE FOR OBSTRUCTION. Mild subsegmental atelectasis in both lung bases. Abdomen/Pelvis CT 04/10/16 23:38 IMPRESSION: 0.7 possible right distal ureteral stone. Mild prominence of the right renal collecting system. Consider surveillance with dynamic IV contrast CT/IVP of the renal system. Chest X-Ray 04/13/16 00:00 IMPRESSION: NO ACUTE RADIOGRAPHIC FINDING IN THE CHEST. Chest CT 04/20/16 00:00 IMPRESSION: The spiculated nodule in the left upper lobe has increased in size since January as described. There is a 2nd nodule in the posterior aspect of the right lower lobe. This is most likely infectious. There is right lower lobe atelectasis or pneumonia. Assessment & Plan - Diagnosis (1) Nosocomial pneumonia Is this a current diagnosis for this admission?: Yes (2) Gastroenteritis Is this a current diagnosis for this admission?: Yes (3) Acute kidney injury Is this a current diagnosis for this admission?: Yes (4) Chronic obstructive lung disease Qualifiers: COPD type: unspecified COPD Qualified Code(s): J44.9 - Chronic obstructive pulmonary disease, unspecified Is this a current diagnosis for this admission?: Yes (5) Chronic respiratory failure Qualifiers: Respiratory failure complication: hypoxia Qualified Code(s): J96.11 - Chronic respiratory failure with hypoxia Is this a current diagnosis for this admission?: Yes (6) End stage chronic obstructive pulmonary disease Is this a current diagnosis for this admission?: Yes (7) Squamous cell carcinoma of lung, stage I Qualifiers: Laterality: left Qualified Code(s): C34.92 - Malignant neoplasm of unspecified part of left bronchus or lung Is this a current diagnosis for this admission?: Yes
[2016-04-26] MEDS: ATORVASTATIN CALCIUM 10 MG TABLET PO SCH (21:22)
[2016-04-26] MEDS: CETIRIZINE 5 MG TABLET PO SCH (21:37)
[2016-04-26] MEDS: OXYCODONE HCL IR 5 MG TABLET PO PRN (23:06)
[2016-04-27] MEDS: IPRATROPIUM/ALBUTEROL 0.5-2.5 MG/3 ML AMPUL NEB SCH ×2 (03:09→08:17)
[2016-04-27] MEDS: OXYCODONE-ACETAMINOPHEN 5-325 MG TABLET PO PRN (04:34)
[2016-04-27] MEDS: OXYCODONE HCL IR 5 MG TABLET PO PRN (04:39)
[2016-04-27] MEDS: LANSOPRAZOLE 30 MG TAB.RAP.DR PO SCH (06:05)
[2016-04-27] MEDS: NORMAL SALINE 1000 ML 1,000 ML IV PRN (06:05)
[2016-04-27] MEDS: PREGABALIN 75 MG CAPSULE PO SCH (06:05)
[2016-04-27] MEDS: DULOXETINE HCL 30 MG CAPSULE.DR PO SCH (10:07)
[2016-04-27] MEDS: TIOTROPIUM BROMIDE DPI 5 CAP/KIT (18 MCG/CAP) IH SCH (10:08)
[2016-04-27] MEDS: BUDESONIDE/FORMOTEROL 160-4.5 MCG 60 PUFF/6 GM MDI IH SCH (10:08)
[2016-04-27 11:51] VITALS: BP 121/60
== END 2016-04-27 12:20 | disposition home or self-care (01) | DRG 391 ==
LOC: ER 21:18 → INTOOBSV 04-11 05:05 → UNDOADMOB 04-11 05:05 → EH 04-11 05:05 → 4S 04-11 15:54 → EEVIPCON 04-14 11:02 → OBSVTOIN 04-14 11:02 → 3N 04-21 01:39
PROVIDERS: ADMIT Internal Medicine; ATTEND Internal Medicine
PROC: 3E0F73Z Introduction of Anti-inflammatory into Respiratory Tract, Via Natural or Artificial Opening (ICD-10-PCS; principal; 2016-04-13)
DX: A08.4 Viral intestinal infection, unspecified (principal); J96.01 Acute respiratory failure with hypoxia; J18.9 Pneumonia, unspecified organism; J96.20 Acute and chronic respiratory failure, unspecified whether with hypoxia or hypercapnia; N17.9 Acute kidney failure, unspecified; J44.1 Chronic obstructive pulmonary disease with (acute) exacerbation; C34.90 Malignant neoplasm of unspecified part of unspecified bronchus or lung; N20.1 Calculus of ureter; Y95 Nosocomial condition; J44.9 Chronic obstructive pulmonary disease, unspecified; B95.62 Methicillin resistant Staphylococcus aureus infection as the cause of diseases classified elsewhere; E78.5 Hyperlipidemia, unspecified; I10 Essential (primary) hypertension; J45.909 Unspecified asthma, uncomplicated; M06.9 Rheumatoid arthritis, unspecified; M19.90 Unspecified osteoarthritis, unspecified site; D64.9 Anemia, unspecified; K21.9 Gastro-esophageal reflux disease without esophagitis; F32.9 Major depressive disorder, single episode, unspecified; F41.9 Anxiety disorder, unspecified; E78.00 Pure hypercholesterolemia, unspecified; E86.0 Dehydration; Z79.899 Other long term (current) drug therapy; Z90.49 Acquired absence of other specified parts of digestive tract; Z90.710 Acquired absence of both cervix and uterus; Z87.891 Personal history of nicotine dependence; Z88.0 Allergy status to penicillin
CPT/HCPCS: 36415; 71010; 71250; 74022; 74176; 80048; 80053; 80202; 81001; 82550; 82553; 82565; 83605; 83735; 84484; 85025; 85027; 87040; 87045; 87086; 87205; 87493; 93005; 93010; 94640; 96361; 96374; 99285; G0378; G8978-GP; G8979-GP; J1335; J2405; J3370; J3490; J7030; J7050; J7060; J7620

== ENCOUNTER 2016-05-10 01:00 | Emergency (ER) | payer MEDICARE, MEDICAID ==
[2016-05-10] MEDS ORDERED: FENTANYL CITRATE INJ/PF 100 MCG/2 ML AMPUL IV ONE (01:13)
[2016-05-10] MEDS ORDERED: IPRATROPIUM/ALBUTEROL 0.5-2.5 MG/3 ML AMPUL NEB ONE (01:38)
--- NOTE | 2016-05-10 01:47 | ER Document Report ---
ED General - General Chief Complaint: Post Surgical Pain Stated Complaint: POST OP PAIN Notes: Patient is a 71 year old female presents with complaint of pain over her left rib cage where she had a procedure performed at [facility] on Friday. It appears that she most likely had a obviously of her lung tumor. Patient herself does not know what procedure was. She says that she has pain. She initially tells me she has Percocet for pain at home but then she later told the nurse that she' s not been taking her pain medicine that she's been taking Molly instead for her pain. I went back and clarified this with the patient she says that she's been taking Molly for her pain because she did not want to disturb her pain medicine as it makes her somewhat sleepy. She's had no fevers. No vomiting. No difficulty breathing. No other complaints at this time. TRAVEL OUTSIDE OF THE [place] IN LAST 30 DAYS: No - Related Data Allergies/Adverse Reactions: Penicillins Allergy (Verified 11/18/15 23:19) Hives Past Medical History - Social History Smoking Status: Former Smoker Frequency of alcohol use: None Drug Abuse: None Family History: Reviewed & Not Pertinent - Past Medical History Cardiac Medical History: Reports: Hx Hypercholesterolemia, Hx Hypertension Denies: Hx Coronary Artery Disease, Hx Heart Attack Pulmonary Medical History: Reports: Hx Asthma, Hx Bronchitis, Hx COPD, Hx Pneumonia Denies: Hx Tuberculosis Neurological Medical History: Denies: Hx Cerebrovascular Accident, Hx Seizures Malignancy Medical History: Reports: Hx Lung Cancer - Squamous cell lung cancer , stage I GI Medical History: Reports: Hx Gastroesophageal Reflux Disease Musculoskeltal Medical History: Reports Hx Arthritis - RA all over Psychiatric Medical History: Reports: Hx Depression - AND ANXIETY Infectious Medical History: Reports: Hx MRSA - History of MRSA pneumonia and history of gram-negative pneumonia Past Surgical History: Reports: Hx Abdominal Surgery - gastric bypass, sbo, Hx Appendectomy, Hx Cholecystectomy, Hx Hysterectomy, Hx Orthopedic Surgery - Immunizations Immunizations up to date: Yes Hx Diphtheria, Pertussis, Tetanus Vaccination: No Hx Pneumococcal Vaccination: 04/14/12 Review of Systems - Review of Systems Notes: My Normal Review Basic REVIEW OF SYSTEMS: CONSTITUTIONAL : Denies fever, chills, or sweats. Denies recent illness. CARDIOVASCULAR: Pain over left lateral rib cage were procedures performed. RESPIRATORY: Denies cough, cold, or chest congestion. Denies shortness of breath, difficulty breathing, or wheezing. GASTROINTESTINAL: Denies abdominal pain. Denies nausea, vomiting, or diarrhea. Denies constipation. Last BM: MUSCULOSKELETAL: Denies neck or back pain or joint pain or swelling. SKIN: Denies rash or skin lesions. NEUROLOGICAL: Denies altered mental status or loss of consciousness. Denies headache. Denies weakness or paralysis or loss of use of either side. Denies problems with gait or speech. Denies sensory or motor loss. ALL OTHER SYSTEMS REVIEWED AND NEGATIVE. Physical Exam - Vital signs Vitals: Temp Pulse Resp BP Pulse Ox 98.4 F 99 18 130/54 H 96 05/10/16 02:15 05/10/16 02:15 05/10/16 02:15 05/10/16 02:15 05/10/16 02:15 - Notes Notes: General Appearance: Well nourished, alert, cooperative, no acute distress, moderate obvious discomfort. Vitals: reviewed, See vital signs table. Head: no swelling or tenderness to the head Eyes: PERRL, EOMI, Conjuctiva clear Mouth: No decreasd moisture Chest wall: Single stitch over incision site over left lateral rib cage. No surrounding redness or erythema. Neck: Supple, no neck tenderness, No thyromegaly Lungs: Some scattered wheezing, No rales, No rhonci, No accessory muscle use, good air exchange bilaterally. Heart: Normal rate, Regular rythm, No murmur, no rub Abdomen: Normal BS, soft, No rigidity, No abdominal tenderness, No guarding, no rebound, no abdominal masses, no organomegaly Extremities: strength 5/5 in all extremities, good pulses in all extremities, no swelling or tenderness in the extremities, no edema. Skin: warm, dry, appropriate color, no rash Neuro: speech clear, oriented x 3, normal affect, responds appropriately to questions. Course - Re-evaluation Re-evalutation: 05/10/16 05:21 - Vital Signs Vital signs: Temp Pulse Resp BP Pulse Ox 98.4 F 99 18 130/54 H 96 05/10/16 02:15 05/10/16 02:15 05/10/16 02:15 05/10/16 02:15 05/10/16 02:15 - Laboratory Result Diagrams: 05/10/16 02:45 05/10/16 02:45 Laboratory results interpreted by me: 05/10/16 05/10/16 02:45 02:45 WBC 12.9 H RBC 3.53 L Hgb 8.5 L Hct 27.5 L MCV 78 L MCH 24.0 L MCHC 30.8 L RDW 17.0 H Plt Count 471 H Potassium 3.3 L Carbon Dioxide 35 H - EKG Interpretation by Me Additional EKG results interpreted by me: 05/10/16 02:21 EKG is reviewed and interpreted by me. EKG shows normal sinus rhythm with rate of [address] segment elevation or depression. MT interval is slightly prolonged. QRS duration QTC intervals are within normal range. Old EKG for comparison is from 04/21/2016 05/10/16 02:35 - Transfer of Care Notes: 05/10/16 05:21 I did review the records from [facility]. She was admitted there on September or for navigational bronchoscopy with fiducial placement. Following this she developed some subcutaneous emphysema and pneumomediastinum. She later had a left chest tube placed. Left chest tube was later removed and the patient was discharged home. Patient was discharged home on her home oxygen as well as Percocet 10 mg tablets. Patient admits to me that she's not been taking the Percocet because they make her sleepy. Since stopped taking the Percocet her pain has increased. This is not surprising being that she recently had a chest tube in place. I did obtain a chest x-ray showed no acute concerning findings. I did do a CT scan showed just a very small amount be his tunnel air which is not surprising with her recent findings at [facility]. She does have some pleural effusions. I do not think this is blood. Her hemoglobin is actually elevated. Her CBC shows elevation of both the white blood cell, platelets, and hemoglobin. Suggest some dehydration. I therefore did initially give her 500 mL's of normal saline. She is in no respiratory distress. She initially had some slight wheezing on exam. I did give her a breathing treatment. This has improved. She is 90% on her home oxygen. Patient is feeling much improved after the pain medicine given to her here. I did explain to her that she should take only half a Percocet every 4-6 hours for her pain. Hopefully this will help give her pain relief as well as keep her from feeling too sleepy. Patient agrees with plan and will be discharged home. Patient strongly encouraged return to ER immediately if she has fevers, difficulty breathing, or feels unwell. Dictation of this chart was performed using voice recognition software; therefore, there may be some unintended grammatical errors. Discharge - Discharge Clinical Impression: Postoperative pain Condition: Good Disposition: HOME, SELF-CARE Additional Instructions: Please return to ER immediately if you have difficulty breathing, fevers, intractable pain. Please take Percocet every 4 hours for your pain. This should make you less sleepy but also still help with her pain. Please follow- up with your doctor at [facility] in 3-4 days for evaluation. Referrals: NATACHA ENGLAND MD [Primary Care Provider] - Follow up in 3-5 days
[2016-05-10 03:06] LABS: ABSOLUTE BASOPHILS # (AUTO) 0.1 10^3/uL (0.0-0.2); ABSOLUTE EOSINOPHILS # (AUTO) 0.4 10^3/uL (0.0-0.6); ABSOLUTE LYMPHOCYTES (AUTO) 3.4 10^3/uL (0.5-4.7); ABSOLUTE MONOCYTES (AUTO) 1.4 10^3/uL (0.1-1.4); ABSOLUTE NEUT (AUTO) 7.5 10^3/uL (1.7-8.2); EOSINOPHILS % (AUTO) 3.2 % (0-6); HEMATOCRIT 27.5 % (36.0-47.0); HEMOGLOBIN 8.5 g/dL (12.0-15.5); LYMPHOCYTES % (AUTO) 26.5 % (13-45); MEAN CORPUSCULAR HGB CONC 30.8 g/dL (32.0-36.0); MEAN CORPUSCULAR VOLUME 78 fl (80-97); MONOCYTES % (AUTO) 11.1 % (3-13); RED BLOOD COUNT 3.53 10^6/uL (3.72-5.28); SEGMENTED NEUTROPHILS % (AUTO) 58.2 % (42-78); WHITE BLOOD COUNT 12.9 10^3/uL (4.0-10.5)
[2016-05-10 03:14] LABS: ANION GAP 9 (5-19); BLOOD UREA NITROGEN 9 mg/dL (7-20); CALCIUM 9.1 mg/dL (8.4-10.2); CARBON DIOXIDE 35 mmol/L (22-30); CHLORIDE 99 mmol/L (98-107); CREATININE RESULT 0.71 mg/dL (0.52-1.25); GLUCOSE 97 mg/dL (75-110); POTASSIUM 3.3 mmol/L (3.6-5.0); SODIUM 142.5 mmol/L (137-145)
[2016-05-10] MEDS ORDERED: NORMAL SALINE 1000 ML 500 ML IV ONE (03:16)
[2016-05-10 12:00] VITALS: BP 135/76
--- NOTE | 2016-05-10 12:42 | EKG REPORT ---
SEVERITY:- ABNORMAL ECG - SINUS RHYTHM FIRST DEGREE AV BLOCK LEFT ANTERIOR FASCICULAR BLOCK BORDERLINE T ABNORMALITIES, ANT-LAT LEADS : Confirmed by: Kristie Rivera MD 10-May-2016 12:42:20
== END 2016-05-10 11:58 | disposition home or self-care (01) ==
LOC: ER 01:00 → EEVIPCON 01:00 → ER 11:58
DX: G89.18 Other acute postprocedural pain (principal); R07.81 Pleurodynia; J90 Pleural effusion, not elsewhere classified; D72.829 Elevated white blood cell count, unspecified; I10 Essential (primary) hypertension; J45.909 Unspecified asthma, uncomplicated; J44.9 Chronic obstructive pulmonary disease, unspecified; Z88.0 Allergy status to penicillin; Z85.118 Personal history of other malignant neoplasm of bronchus and lung; Z86.14 Personal history of Methicillin resistant Staphylococcus aureus infection; Z98.84 Bariatric surgery status; Z99.81 Dependence on supplemental oxygen
CPT/HCPCS: 93005; 94640; 99285; 96361; 96374; 36415; 85025; 80048; 71010; 71250; 93010; J3010; J7030; A9270; J7620

== ENCOUNTER 2016-05-23 13:07 | Inpatient (IN) | payer MEDICARE, MEDICAID ==
[2016-05-23 13:41] LABS: ABSOLUTE BASOPHILS # (AUTO) 0.1 10^3/uL (0.0-0.2); ABSOLUTE EOSINOPHILS # (AUTO) 0.3 10^3/uL (0.0-0.6); ABSOLUTE LYMPHOCYTES (AUTO) 3.8 10^3/uL (0.5-4.7); ABSOLUTE MONOCYTES (AUTO) 1.6 10^3/uL (0.1-1.4); ABSOLUTE NEUT (AUTO) 7.5 10^3/uL (1.7-8.2); BASOPHILS % (AUTO) 0.4 % (0-2); EOSINOPHILS % (AUTO) 2.5 % (0-6); HEMATOCRIT 26.7 % (36.0-47.0); HEMOGLOBIN 8.2 g/dL (12.0-15.5); HGB HCT DIFFERENCE -2.1; LYMPHOCYTES % (AUTO) 28.8 % (13-45); MEAN CORPUSCULAR HEMOGLOBIN 23.6 pg (27.0-33.4); MEAN CORPUSCULAR HGB CONC 30.7 g/dL (32.0-36.0); MEAN CORPUSCULAR VOLUME 77 fl (80-97); MONOCYTES % (AUTO) 11.7 % (3-13); RED BLOOD COUNT 3.48 10^6/uL (3.72-5.28); SEGMENTED NEUTROPHILS % (AUTO) 56.6 % (42-78); WHITE BLOOD COUNT 13.2 10^3/uL (4.0-10.5)
[2016-05-23 13:45] LABS: VENOUS BLOOD BASE EXCESS 0.3 mmol/L; VENOUS BLOOD HCO3 27.1 mmol/L (20-32); VENOUS BLOOD PCO2 53.5 mmHg (35-63); VENOUS BLOOD PH 7.32 (7.30-7.42)
[2016-05-23 13:58] LABS: ALANINE AMINOTRANSFERASE 18 U/L (9-52); ALBUMIN 3.5 g/dL (3.5-5.0); ALKALINE PHOSPHATASE 87 U/L (38-126); ANION GAP 10 (5-19); ASPARTATE AMINO TRANSFERASE 25 U/L (14-36); BILIRUBIN,TOTAL 0.5 mg/dL (0.2-1.3); BLOOD UREA NITROGEN 12 mg/dL (7-20); CALCIUM 8.7 mg/dL (8.4-10.2); CARBON DIOXIDE 26 mmol/L (22-30); CHLORIDE 105 mmol/L (98-107); CREATININE RESULT 0.78 mg/dL (0.52-1.25); GLUCOSE 86 mg/dL (75-110); POTASSIUM 4.5 mmol/L (3.6-5.0); SODIUM 141.3 mmol/L (137-145); TOTAL PROTEIN 6.7 g/dL (6.3-8.2)
--- NOTE | 2016-05-23 14:29 | ER Document Report ---
ED Respiratory Problem - General Time seen by provider: 15:20 Mode of Arrival: Medic Information source: Relative - sister TRAVEL OUTSIDE OF THE [place] IN LAST 30 DAYS: No - HPI Patient complains to provider of: COPD, Cough, Short of breath Onset: Other - see HPI Context: Hx COPD Cough: Nonproductive At home treatment: Oxygen Associated symptoms: Cough, Short of breath, Wheezing Similar symptoms previously: Yes Recently seen / treated by doctor: Yes <ESTRELLA DAMON - Last Filed: 05/23/16 15:31> <FAUSTINA MENJIVAR - Last Filed: 05/23/16 22:59> - General Chief Complaint: Shortness Of Breath Stated Complaint: RESPIRATORY PROBLEMS Notes: Patient is a 71-year-old female presented emergency department with complaints of respiratory distress. 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 Patient has not started treatment but is still currently being evaluated at [facility] for her cancer. Patient also has a history of COPD and frequent pneumonia. Patient is presents the emergency department with her sister who provides most of the pertinent information due to the patient being quite drowsy. Patient's sister states that the patient has been very short of breath which has increased over the last couple of days. Patient is on 3-lead liters of oxygen at home. Patient was ambulating some on Friday, less ambulation on Friday, and has not gotten that to ambulate at all today. Patient is on oxycodone and states that she took oxycodone and Ativan today at home prior to arriving to the emergency department. Patient's sister is also concerned for the lack of amount of pills that are in the patient 's prescription bottle. Patient's sister states that her prescription for oxycodone was filled on Friday and that she should have taken 20 pills since then until today; the prescription is for 1 pill every 6 hours. Patient's sister states that she counted the pills, and there are 80 pills remaining in the bottle and the bottle started with 120 pills. Patient should have 100 pills remaining so there are 20 pills that are missing. Patient's sister is unsure if the patient took these extra oxycodone's or if another person has taken them. Patient's sister's concern for the patient's health because she does not have anyone to care for her at home. Patient's daughter lives with her but she is also disabled so she is unable to provide adequate care for the patient. Patient's primary care physician is Dr. Grover. Patient is allergic to penicillin. (ESTRELLA DAMON) - Related Data Allergies/Adverse Reactions: Penicillins Allergy (Verified 11/18/15 23:19) Hives Home Medications: Current Home Medications Albuterol Sulfate [Proair HFA] 1 puff IH Q4HP PRN 05/23/16 [History] Amlodipine Besylate [Norvasc 5 mg Tablet] 5 mg PO DAILY 05/23/16 [History] Budesonide/Formoterol Fumarate [Symbicort Hfa 160-4.5 Mcg Inhaler 6 gm] 2 puff IH Q12 05/23/16 [History] Clonazepam [Klonopin] 0.5 mg PO Q12 05/23/16 [History] Clonidine HCl 0.1 mg PO Q12 05/23/16 [History] Duloxetine HCl [Cymbalta] 60 mg PO BID 05/23/16 [History] Ergocalciferol (Vitamin D2) [Drisdol 50,000 Unit (1.25MG) Capsule] 50,000 unit PO [id number] 05/23/16 [History] Levocetirizine Dihydrochloride [Xyzal 5 mg Tablet] 5 mg PO QHS 05/23/16 [History ] Omeprazole 40 mg PO DAILY 05/23/16 [History] Oxycodone HCl/Acetaminophen [Percocet 10-325 Mg Tablet] 1 tab PO Q6HP PRN [History] Pravastatin Sodium [Pravachol] 40 mg PO QHS 05/23/16 [History] Pregabalin [Lyrica 75 mg Capsule] 75 mg PO Q8 05/23/16 [History] Tiotropium [place] [Spiriva Handihaler 5 Cap/Kit (18 Mcg/Cap)] 1 cap IH DAILY [History] Valsartan [Diovan 160 mg Tablet] 160 mg PO Q12 05/23/16 [History] Past Medical History - General Information source: Relative - sister - Social History Smoking Status: Former Smoker Cigarette use (# per day): No Chew tobacco use (# tins/day): No Frequency of alcohol use: None Family History: None - Past Medical History Cardiac Medical History: Reports: Hx Hypercholesterolemia, Hx Hypertension Pulmonary Medical History: Reports: Hx Asthma, Hx Bronchitis, Hx COPD, Hx Pneumonia Malignancy Medical History: Reports: Hx Lung Cancer - Squamous cell lung cancer , stage I GI Medical History: Reports: Hx Gastroesophageal Reflux Disease Musculoskeltal Medical History: Reports Hx Arthritis - RA all over Psychiatric Medical History: Reports: Hx Anxiety, Hx Depression Infectious Medical History: Reports: Hx MRSA - History of MRSA pneumonia and history of gram-negative pneumonia Past Surgical History: Reports: Hx Abdominal Surgery - gastric bypass, sbo, Hx Appendectomy, Hx Cholecystectomy, Hx Hysterectomy, Hx Orthopedic Surgery - Immunizations Immunizations up to date: Yes Hx Diphtheria, Pertussis, Tetanus Vaccination: No Hx Pneumococcal Vaccination: 04/14/12 <ESTRELLA DAMON - Last Filed: 05/23/16 15:31> Review of Systems - Review of Systems Constitutional: See HPI, Malaise, Weakness EENT: No symptoms reported Cardiovascular: No symptoms reported Respiratory: See HPI, Cough, Short of breath, Wheezing Gastrointestinal: See HPI, Abdominal pain Genitourinary: No symptoms reported Female Genitourinary: No symptoms reported Musculoskeletal: No symptoms reported Skin: No symptoms reported Hematologic/Lymphatic: No symptoms reported Neurological/Psychological: No symptoms reported -: Yes All other systems reviewed and negative <ESTRELLA DAMON - Last Filed: 05/23/16 15:31> Physical Exam - Vital signs Interpretation: Hypotensive, Tachycardic, Hypoxic - General General appearance: Appears well, Alert, Other - patient is drowsy but arousable In distress: Mild - HEENT Head: Normocephalic, Atraumatic Eyes: Normal Pupils: PERRL Mucous membranes: Moist - Respiratory Respiratory status: No respiratory distress Chest status: Nontender Breath sounds: Decreased air movement - and decreased breath sounds at the bases bilaterally, Rales - at the bases bilaterally, Wheezing - bilaterally throughout Chest palpation: Normal - Cardiovascular Rhythm: Regular Heart sounds: Normal auscultation Murmur: No - Abdominal Inspection: Normal Distension: No distension Bowel sounds: Normal Tenderness: Nontender Organomegaly: No organomegaly - Back Back: Normal, Nontender - Extremities General upper extremity: Normal inspection, Normal ROM, Normal strength General lower extremity: Normal inspection, Normal ROM, Normal strength - Neurological Neuro grossly intact: Yes Cognition: Normal Orientation: AAOx4 Hunter Coma Scale Eye Opening: Spontaneous Hunter Coma Scale Verbal: Oriented Hunter Coma Scale Motor: Obeys Commands Hunter Coma Scale Total: 15 Speech: Normal - Psychological Associated symptoms: Normal affect, Normal mood - Skin Skin Temperature: Warm Skin Moisture: Dry <ESTRELLA DAMON - Last Filed: 05/23/16 15:31> <FAUSTINA MENJIVAR - Last Filed: 05/23/16 22:59> - Vital signs Vitals: Pulse Ox 94 05/23/16 13:15 (ESTRELLA DAMON) (FAUSTINA MENJIVAR) Course - Laboratory Result Diagrams: 05/23/16 13:20 05/23/16 13:20 - Consults Dr. Grover Time consulted: 14:55 <ESTRELLA DAMON - Last Filed: 05/23/16 15:31> - Laboratory Result Diagrams: 05/23/16 13:20 05/23/16 13:20 <FAUSTINA MENJIVAR - Last Filed: 05/23/16 22:59> - Re-evaluation Re-evalutation: 05/23/16 Patient is a 71-year-old female who comes in with some difficulty breathing and a cough. Patient is also somewhat tachycardic and hypotensive although responds also fluids. Troponin is negative. Patient has squamous cell carcinoma of her lung. Patient is hypoxic on her home oxygen. Sr. is concerned that the patient's oxycodone is missing and that the patient is having difficulty taking care of herself at home. Patient was discussed with her primary care doctor who will admit the patient for hypoxia and dyspnea on exertion. Stable for admission. Agrees with plan. Of note, Tylenol level less than 10. (FAUSTINA MENJIVAR) - Vital Signs Vital signs: Temp Pulse Resp BP Pulse Ox 98.8 F 93 22 H 117/61 94 05/23/16 22:20 05/23/16 22:20 05/23/16 22:20 05/23/16 22:20 05/23/16 22:20 (ESTRELLA DAMON) (FAUSTINA MENJIVAR) - Laboratory Laboratory results interpreted by me: 05/23/16 05/23/16 05/23/16 13:20 13:20 15:29 WBC 13.2 H RBC 3.48 L Hgb 8.2 L Hct 26.7 L MCV 77 L MCH 23.6 L MCHC 30.7 L RDW 19.0 H Absolute Monocytes 1.6 H Ur Leukocyte Esterase MODERATE H Acetaminophen < 10 L (ESTRELLA DAMON) (FAUSTINA MENJIVAR) - Consults Dr. Grover Reason for consultation: 05/23/16 14:[address] Grover to discuss possible treatment options for patient; patient will be admitted. (ESTRELLA DAMON) Discharge <ESTRELLA DAMON - Last Filed: 05/23/16 15:31> - Discharge Admitting Provider: [facility] Unit Admitted: [facility] <FAUSTINA MENJIVAR - Last Filed: 05/23/16 22:59> - Discharge Clinical Impression: COPD exacerbation, Hypoxia, Possible Pneumonia Squamous cell carcinoma of lung, stage I Qualifiers: Laterality: unspecified laterality Qualified Code(s): C34.90 - Malignant neoplasm of unspecified part of unspecified bronchus or lung Anemia Qualifiers: Anemia type: unspecified type Qualified Code(s): D64.9 - Anemia, unspecified Condition: Stable Disposition: ADMITTED INPATIENT Scribe Attestation: 05/23/16 22:59 I personally performed the services described in the documentation, reviewed and edited the documentation which was dictated to the scribe in my presence, and it accurately records my words and actions. (FAUSTINA MENJIVAR) Scribe Documentation - Scribe Written by Scribsarah:: Estrella Damon 05/23/16 15:00 acting as scribe for :: Adina <ESTRELLA DAMON - Last Filed: 05/23/16 15:31>
[2016-05-23] MEDS ORDERED: IPRATROPIUM/ALBUTEROL 0.5-2.5 MG/3 ML AMPUL NEB ONE (14:48)
[2016-05-23] MEDS ORDERED: NORMAL SALINE 1000 ML 500 ML IV ONE (14:49)
[2016-05-23] MEDS ORDERED: LEVOFLOXACIN 750 MG/D5W RTU 150 ML IV ONE (14:58)
[2016-05-23 15:16] LABS: CREATINE KINASE 40 U/L (30-135)
[2016-05-23 15:26] LABS: CREATINE KINASE MB 2.43 ng/mL (<4.55)
[2016-05-23 15:27] LABS: TROPONIN I < 0.012 ng/mL
[2016-05-23 16:18] LABS: APPEARANCE,URINE SLIGHTLY-CLOUDY; BILIRUBIN,URINE NEGATIVE (NEGATIVE); GLUCOSE, URINE NEGATIVE (NEGATIVE); KETONES,URINE NEGATIVE (NEGATIVE); LEUKOCYTE ESTERASE,URINE MODERATE (NEGATIVE); NITRITE,URINE NEGATIVE (NEGATIVE); PROTEIN,URINE NEGATIVE (NEGATIVE); URINE SPECIFIC GRAVITY 1.017; UROBILINOGEN,URINE NEGATIVE mg/dL (<2.0)
--- NOTE | 2016-05-23 17:09 | EKG REPORT ---
SEVERITY:- ABNORMAL ECG - SINUS TACHYCARDIA INFERIOR INFARCT, AGE INDETERMINATE LATE PRECORDIAL TRANSITION. : Confirmed by: Michael Olivier MD 23-May-2016 17:08:49
[2016-05-23] MEDS ORDERED: (PENDING PHARMACY ID) (Oxycodone Hcl/Acetaminophen [Percocet 10-325 Mg Tablet] 1 TAB) PO PRN (17:55)
[2016-05-23] MEDS ORDERED: (PENDING PHARMACY ID) (Clonazepam [Klonopin] 0.5 MG) PO SCH (18:00)
[2016-05-23 18:31] LABS: ARTERIAL BLOOD BASE EXCESS -1.8 mmol/L; ARTERIAL BLOOD O2 SATURATION 97.5 % (94-98)
[2016-05-23] MEDS: OXYCODONE HCL IR 5 MG TABLET PO PRN (18:49)
[2016-05-23] MEDS: OXYCODONE-ACETAMINOPHEN 5-325 MG TABLET PO PRN (18:49)
[2016-05-23 18:51] LABS: THYROID STIMULATING HORMONE 2.53 uIU/mL (0.47-4.68)
[2016-05-23] MEDS ORDERED: AMLODIPINE BESYLATE 5 MG TABLET PO ONE (19:00)
[2016-05-23] MEDS ORDERED: ENOXAPARIN SODIUM INJ 40 MG/0.4 ML DISP.SYRIN SUBCUT ONE (19:00)
[2016-05-23] MEDS ORDERED: LANSOPRAZOLE 30 MG TAB.RAP.DR PO ONE (19:00)
[2016-05-23] MEDS: IPRATROPIUM/ALBUTEROL 0.5-2.5 MG/3 ML AMPUL NEB SCH ×2 (19:17→23:12)
[2016-05-23 19:59] LABS: CREATINE KINASE MB 2.86 ng/mL (<4.55)
[2016-05-23] MEDS ORDERED: TIOTROPIUM BROMIDE DPI 5 CAP/KIT (18 MCG/CAP) IH ONE (20:00)
[2016-05-23] MEDS ORDERED: ERGOCALCIFEROL (VITAMIN D2) 50000 UNIT (1.25 MG) CAPSULE PO ONE (20:00)
[2016-05-23 20:05] LABS: TROPONIN I < 0.012 ng/mL
[2016-05-23] MEDS ORDERED: CLONAZEPAM 1 MG TABLET PO ONE (20:30)
[2016-05-23] MEDS ORDERED: (PENDING PHARMACY ID) (Levocetirizine Dihydrochloride [Xyzal 5 Mg Tablet] 5 MG) PO SCH (22:00)
[2016-05-23] MEDS ORDERED: (PENDING PHARMACY ID) (Pravastatin Sodium [Pravachol] 40 MG) PO SCH (22:00)
[2016-05-23] MEDS: VALSARTAN 160 MG TABLET PO SCH (22:44)
[2016-05-23] MEDS: PREGABALIN 75 MG CAPSULE PO SCH (22:44)
[2016-05-23] MEDS: CLONAZEPAM 1 MG TABLET PO SCH (22:47)
[2016-05-23] MEDS: DULOXETINE HCL 30 MG CAPSULE.DR PO SCH (22:49)
[2016-05-23] MEDS: ATORVASTATIN CALCIUM 10 MG TABLET PO SCH (22:49)
[2016-05-23] MEDS: CETIRIZINE 5 MG TABLET PO SCH (22:52)
[2016-05-23] MEDS: BUDESONIDE/FORMOTEROL 160-4.5 MCG 60 PUFF/6 GM MDI IH SCH (22:52)
[2016-05-23] MEDS: LEVOFLOXACIN 750 MG/D5W RTU 750 MG/150 ML RTUPB IV SCH (23:08)
[2016-05-24] MEDS: OXYCODONE-ACETAMINOPHEN 5-325 MG TABLET PO PRN ×3 (00:21→18:30)
[2016-05-24] MEDS: IPRATROPIUM/ALBUTEROL 0.5-2.5 MG/3 ML AMPUL NEB SCH ×8 (02:13→23:09)
[2016-05-24 02:15] LABS: CREATINE KINASE MB 1.87 ng/mL (<4.55)
[2016-05-24 02:27] LABS: TROPONIN I 0.091 ng/mL
[2016-05-24] MEDS: OXYCODONE HCL IR 5 MG TABLET PO PRN ×3 (04:11→21:37)
[2016-05-24] MEDS: PREGABALIN 75 MG CAPSULE PO SCH ×3 (06:25→21:42)
[2016-05-24 08:10] LABS: ABSOLUTE BASOPHILS # (AUTO) 0.1 10^3/uL (0.0-0.2); ABSOLUTE EOSINOPHILS # (AUTO) 0.1 10^3/uL (0.0-0.6); ABSOLUTE MONOCYTES (AUTO) 1.1 10^3/uL (0.1-1.4); ABSOLUTE NEUT (AUTO) 6.1 10^3/uL (1.7-8.2); BASOPHILS % (AUTO) 0.5 % (0-2); EOSINOPHILS % (AUTO) 0.9 % (0-6); HEMATOCRIT 24.3 % (36.0-47.0); HGB HCT DIFFERENCE -1.2; LYMPHOCYTES % (AUTO) 21.3 % (13-45); MEAN CORPUSCULAR HEMOGLOBIN 23.9 pg (27.0-33.4); MEAN CORPUSCULAR HGB CONC 31.5 g/dL (32.0-36.0); MEAN CORPUSCULAR VOLUME 76 fl (80-97); MONOCYTES % (AUTO) 11.8 % (3-13); RED CELL DISTRIBUTION WIDTH 18.8 % (11.5-14.0); SEGMENTED NEUTROPHILS % (AUTO) 65.5 % (42-78); WHITE BLOOD COUNT 9.2 10^3/uL (4.0-10.5)
[2016-05-24 08:18] LABS: HEMOGLOBIN 7.7 g/dL (12.0-15.5)
--- NOTE | 2016-05-24 08:18 | EKG REPORT ---
SEVERITY:- ABNORMAL ECG - SINUS TACHYCARDIA LAD, CONSIDER LAFB OR INFERIOR-POSTERIOR INFARCT BORDERLINE T ABNORMALITIES, ANT-LAT LEADS : Confirmed by: Michael Olivier MD 24-May-2016 08:17:47
[2016-05-24 08:21] LABS: ALANINE AMINOTRANSFERASE 25 U/L (9-52); ALBUMIN 2.5 g/dL (3.5-5.0); ALKALINE PHOSPHATASE 80 U/L (38-126); ANION GAP 11 (5-19); ASPARTATE AMINO TRANSFERASE 13 U/L (14-36); BILIRUBIN,TOTAL 0.4 mg/dL (0.2-1.3); BLOOD UREA NITROGEN 12 mg/dL (7-20); CALCIUM 8.2 mg/dL (8.4-10.2); CARBON DIOXIDE 23 mmol/L (22-30); CHLORIDE 104 mmol/L (98-107); CREATINE KINASE 30 U/L (30-135); CREATININE RESULT 0.78 mg/dL (0.52-1.25); GLUCOSE 73 mg/dL (75-110); POTASSIUM 3.9 mmol/L (3.6-5.0); SODIUM 137.7 mmol/L (137-145); TOTAL PROTEIN 5.3 g/dL (6.3-8.2)
[2016-05-24 08:33] LABS: CREATINE KINASE MB 1.38 ng/mL (<4.55); TROPONIN I 0.069 ng/mL
[2016-05-24] MEDS: CLONAZEPAM 1 MG TABLET PO SCH ×2 (09:06→21:37)
[2016-05-24] MEDS: LANSOPRAZOLE 30 MG TAB.RAP.DR PO SCH (09:07)
[2016-05-24] MEDS: ENOXAPARIN SODIUM INJ 40 MG/0.4 ML DISP.SYRIN SUBCUT SCH (09:07)
[2016-05-24] MEDS: VALSARTAN 160 MG TABLET PO SCH ×2 (09:08→21:42)
[2016-05-24] MEDS: AMLODIPINE BESYLATE 5 MG TABLET PO SCH (09:09)
[2016-05-24] MEDS: DULOXETINE HCL 30 MG CAPSULE.DR PO SCH ×2 (09:24→21:38)
[2016-05-24] MEDS: BUDESONIDE/FORMOTEROL 160-4.5 MCG 60 PUFF/6 GM MDI IH SCH ×2 (09:24→21:39)
[2016-05-24] MEDS: TIOTROPIUM BROMIDE DPI 5 CAP/KIT (18 MCG/CAP) IH SCH (09:25)
[2016-05-24] MEDS: NORMAL SALINE 1000 ML 1,000 ML IV PRN (12:56)
--- NOTE | 2016-05-24 14:18 | PDOC H&P ---
History of Present Illness Admission Date/PCP: 05/23/16 17:52 NATACHA ENGLAND MD History of Present Illness: HUNTER GRANADOS is a 71 year old female patient is well-known to me, she has history of multiple comorbid conditions including end-stage COPD, malignant neoplasm of the left lung, squamous cell type. She was recently referred to [place] for [facility] radiation therapy. I believe she had the first treatment this week, she came to emergency room because of respiratory distress including coughing, shortness of breath, she was evaluated in emergency room, Chest x-ray was done, the chest x-ray showed mild pulmonary vascular congestion , there is no pleural effusion, no pneumothorax. The ABG on FiO2 of 3 L, pH 7.4 , PCO2 37, PO2 97.7, bicarbonate 22, she had previous multiple hospitalizations , the sputum culture is growing gram-negative rods. She will be admitted initially for observation and if condition does not improve this,We will transition to full inpatient care. Past Medical History Cardiac Medical History: Reports: Hyperlipidema, Hypertension Pulmonary Medical History: Reports: Asthma, Bronchitis, Chronic Obstructive Pulmonary Disease (COPD), Pneumonia Malignancy Medical History: Reports: Lung Cancer - Squamous cell lung cancer, stage I GI Medical History: Reports: Gastroesophageal Reflux Disease Musculoskeltal Medical History: Reports: Arthritis - RA all over Psychiatric Medical History: Reports: Depression Hematology: Reports: Anemia Infectious Medical History: Reports: 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 and history of gram-negative pneumonia Past Surgical History Past Surgical History: Reports: Appendectomy, Cholecystectomy, Hysterectomy, Orthopedic Surgery Social History Smoking Status: Former Smoker Frequency of Alcohol Use: None Hx Recreational Drug Use: No Drugs: None Hx Prescription Drug Abuse: No - Advance Directive Resuscitation Status: Full Code Family History Family History: None Parental Family History Reviewed: Yes Children Family History Reviewed: Yes Sibling(s) Family History Reviewed.: Yes Medication/Allergy Home Medications: Albuterol Sulfate [Proair HFA] 1 puff IH PRN PRN 10/08/14 Fluconazole [Diflucan] 100 mg PO DAILY 10/08/14 Prednisone [Deltasone 20 mg Tablet] 40 mg PO DAILY #0 tablet 03/13/15 Albuterol Sulfate [Proair HFA] 1 puff IH Q4HP PRN 05/23/16 Amlodipine Besylate [Norvasc 5 mg Tablet] 5 mg PO DAILY 05/23/16 Budesonide/Formoterol Fumarate [Symbicort Hfa 160-4.5 Mcg Inhaler 6 gm] 2 puff IH Q12 05/23/16 Clonazepam [Klonopin] 0.5 mg PO Q12 05/23/16 Clonidine HCl 0.1 mg PO Q12 05/23/16 Duloxetine HCl [Cymbalta] 60 mg PO BID 05/23/16 Ergocalciferol (Vitamin D2) [Drisdol 50,000 Unit (1.25MG) Capsule] 50,000 unit PO [id number] 05/23/16 Levocetirizine Dihydrochloride [Xyzal 5 mg Tablet] 5 mg PO QHS 05/23/16 Omeprazole 40 mg PO DAILY 05/23/16 Oxycodone HCl/Acetaminophen [Percocet 10-325 Mg Tablet] 1 tab PO Q6HP PRN Pravastatin Sodium [Pravachol] 40 mg PO QHS 05/23/16 Pregabalin [Lyrica 75 mg Capsule] 75 mg PO Q8 05/23/16 Tiotropium [place] [Spiriva Handihaler 5 Cap/Kit (18 Mcg/Cap)] 1 cap IH DAILY Valsartan [Diovan 160 mg Tablet] 160 mg PO Q12 05/23/16 Allergies/Adverse Reactions: Penicillins Allergy (Verified 11/18/15 23:19) Hives Review of Systems Constitutional: PRESENT: anorexia, fatigue Nose, Mouth, and Throat: PRESENT: headache(s) Cardiovascular: PRESENT: dyspnea on exertion Respiratory: PRESENT: cough Gastrointestinal: PRESENT: nausea Genitourinary: ABSENT: as per HPI, difficulty urinating, dysuria, hematuria, nocturia, other Musculoskeletal: PRESENT: back pain Neurological: PRESENT: confusion, weakness. ABSENT: as per HPI, abnormal gait, abnormal movements, abnormal speech, convulsions, dizziness, focal weakness, frequent falls, lack of coordination, memory loss, numbness, paresthesias, restless legs, syncope, tingling, tremor(s), vertigo, other Psychiatric: PRESENT: anxiety, depression Endocrine: ABSENT: as per HPI, cold intolerance, flushing, heat intolerance, menstrual abnormalities, polydipsia, polyphagia, polyuria, other Physical Exam Vital Signs: Temp Pulse Resp BP Pulse Ox 97.7 F 96 18 79/43 L 94 05/24/16 12:18 05/24/16 13:33 05/24/16 13:33 05/24/16 12:18 05/24/16 13:33 Intake & Output 05/23/16 05/24/16 05/25/16 06:59 06:59 06:59 Intake Total 154 240 Output Total 0 Balance 154 240 Weight 62.8 kg General appearance: PRESENT: mild distress Eye exam: PRESENT: PERRLA Respiratory exam: PRESENT: crackles, rhonchi, wheezes Cardiovascular exam: PRESENT: +S1, +S2 GI/Abdominal exam: PRESENT: soft Neurological exam: PRESENT: alert, CN II-XII grossly intact Psychiatric exam: PRESENT: anxious Results Laboratory Results: 05/24/16 07:44 05/24/16 07:44 05/23/16 05/24/16 05/24/16 18:17 07:44 07:44 WBC 9.2 RBC 3.20 L Hgb 7.7 L Hct 24.3 L MCV 76 L MCH 23.9 L MCHC 31.5 L RDW 18.8 H Plt Count 348 Seg Neutrophils % 65.5 Lymphocytes % 21.3 Monocytes % 11.8 Eosinophils % 0.9 Basophils % 0.5 Absolute Neutrophils 6.1 Absolute Lymphocytes 2.0 Absolute Monocytes 1.1 Absolute Eosinophils 0.1 Absolute Basophils 0.1 Carbonic Acid 1.12 HCO3/H2CO3 Ratio 20:1 ABG pH 7.40 ABG pCO2 37.2 ABG pO2 97.7 ABG HCO3 22.7 ABG O2 Saturation 97.5 ABG Base Excess -1.8 FiO2 3L Sodium 137.7 Potassium 3.9 Chloride 104 Carbon Dioxide 23 Anion Gap 11 BUN 12 Creatinine 0.78 Est GFR ( Amer) > 60 Est GFR (Non-Af Amer) > 60 Glucose 73 L Calcium 8.2 L Total Bilirubin 0.4 AST 13 L ALT 25 Alkaline Phosphatase 80 Total Protein 5.3 L Albumin 2.5 L 05/23/16 05/23/16 05/24/16 19:32 19:32 01:31 Creatine Kinase 37 34 CK-MB (CK-2) 2.86 Troponin I < 0.012 05/24/16 05/24/16 05/24/16 01:31 07:44 07:44 Creatine Kinase 30 CK-MB (CK-2) 1.87 1.38 Troponin I 0.091 0.069 Impressions: Chest X-Ray 05/23/16 13:35 IMPRESSION: Mild pulmonary vascular prominence. No definite alveolar or interstitial edema Assessment & Plan - Diagnosis (1) Pneumonia Qualifiers: Pneumonia type: due to unspecified organism Laterality: unspecified laterality Lung location: unspecified part of lung Qualified Code(s) : J18.9 - Pneumonia, unspecified organism Is this a current diagnosis for this admission?: YesPlan: She will be treated with IV Levaquin (2) End stage chronic obstructive pulmonary disease Is this a current diagnosis for this admission?: Yes (3) Malignant neoplasm metastatic to left lung Is this a current diagnosis for this admission?: Yes (4) Anemia of chronic disease Is this a current diagnosis for this admission?: Yes
[2016-05-24 14:28] LABS: ARTERIAL BLOOD BASE EXCESS -0.4 mmol/L; ARTERIAL BLOOD O2 SATURATION 96.7 % (94-98)
[2016-05-24] MEDS: BENZOCAINE/MENTHOL SORE THROAT LOZENGE BUCCAL PRN (18:40)
[2016-05-24] MEDS ORDERED: ACETAMINOPHEN 325 MG TABLET ONE (18:54)
[2016-05-24] MEDS ORDERED: ACETAMINOPHEN 325 MG TABLET PO ONE (20:00)
[2016-05-24] MEDS: LEVOFLOXACIN 750 MG/D5W RTU 750 MG/150 ML RTUPB IV SCH (21:34)
[2016-05-24] MEDS: ATORVASTATIN CALCIUM 10 MG TABLET PO SCH (21:37)
[2016-05-24] MEDS: CETIRIZINE 5 MG TABLET PO SCH (21:39)
[2016-05-25] MEDS: IPRATROPIUM/ALBUTEROL 0.5-2.5 MG/3 ML AMPUL NEB SCH ×8 (02:22→23:25)
[2016-05-25 05:04] LABS: ALANINE AMINOTRANSFERASE 22 U/L (9-52); ALBUMIN 2.9 g/dL (3.5-5.0); ALKALINE PHOSPHATASE 82 U/L (38-126); ANION GAP 13 (5-19); ASPARTATE AMINO TRANSFERASE 14 U/L (14-36); BILIRUBIN,TOTAL 0.9 mg/dL (0.2-1.3); BLOOD UREA NITROGEN 12 mg/dL (7-20); CALCIUM 8.6 mg/dL (8.4-10.2); CARBON DIOXIDE 22 mmol/L (22-30); CHLORIDE 104 mmol/L (98-107); CREATININE RESULT 0.85 mg/dL (0.52-1.25); GLUCOSE 89 mg/dL (75-110); POTASSIUM 3.9 mmol/L (3.6-5.0); SODIUM 139.4 mmol/L (137-145); TOTAL PROTEIN 5.7 g/dL (6.3-8.2)
[2016-05-25] MEDS: PREGABALIN 75 MG CAPSULE PO SCH ×3 (05:36→21:36)
[2016-05-25] MEDS: OXYCODONE-ACETAMINOPHEN 5-325 MG TABLET PO PRN ×2 (06:39→12:16)
[2016-05-25] MEDS: BENZOCAINE/MENTHOL SORE THROAT LOZENGE BUCCAL PRN ×2 (06:39→12:15)
[2016-05-25 07:21] LABS: ABSOLUTE BASOPHILS # (AUTO) 0.1 10^3/uL (0.0-0.2); ABSOLUTE EOSINOPHILS # (AUTO) 0.3 10^3/uL (0.0-0.6); ABSOLUTE LYMPHOCYTES (AUTO) 3.4 10^3/uL (0.5-4.7); ABSOLUTE MONOCYTES (AUTO) 1.5 10^3/uL (0.1-1.4); ABSOLUTE NEUT (AUTO) 9.2 10^3/uL (1.7-8.2); BASOPHILS % (AUTO) 0.5 % (0-2); EOSINOPHILS % (AUTO) 1.9 % (0-6); HEMATOCRIT 34.7 % (36.0-47.0); HGB HCT DIFFERENCE -1.1; LYMPHOCYTES % (AUTO) 23.3 % (13-45); MEAN CORPUSCULAR HEMOGLOBIN 25.5 pg (27.0-33.4); MEAN CORPUSCULAR HGB CONC 32.3 g/dL (32.0-36.0); MEAN CORPUSCULAR VOLUME 79 fl (80-97); MONOCYTES % (AUTO) 10.3 % (3-13); RED CELL DISTRIBUTION WIDTH 19.2 % (11.5-14.0); WHITE BLOOD COUNT 14.4 10^3/uL (4.0-10.5)
[2016-05-25 07:46] LABS: HEMOGLOBIN 11.2 g/dL (12.0-15.5)
[2016-05-25] MEDS: ENOXAPARIN SODIUM INJ 40 MG/0.4 ML DISP.SYRIN SUBCUT SCH (08:11)
[2016-05-25] MEDS: CLONAZEPAM 1 MG TABLET PO SCH ×2 (09:03→21:34)
[2016-05-25] MEDS: DULOXETINE HCL 30 MG CAPSULE.DR PO SCH ×2 (09:03→21:36)
[2016-05-25] MEDS: OXYCODONE HCL IR 5 MG TABLET PO PRN ×2 (09:03→20:18)
[2016-05-25] MEDS: LANSOPRAZOLE 30 MG TAB.RAP.DR PO SCH (09:04)
[2016-05-25] MEDS: BUDESONIDE/FORMOTEROL 160-4.5 MCG 60 PUFF/6 GM MDI IH SCH ×2 (09:04→21:34)
[2016-05-25] MEDS: AMLODIPINE BESYLATE 5 MG TABLET PO SCH (09:04)
[2016-05-25] MEDS: VALSARTAN 160 MG TABLET PO SCH ×2 (09:04→21:36)
[2016-05-25] MEDS: TIOTROPIUM BROMIDE DPI 5 CAP/KIT (18 MCG/CAP) IH SCH (09:04)
[2016-05-25] MEDS: NORMAL SALINE 1000 ML 1,000 ML IV PRN ×2 (10:03→20:02)
--- NOTE | 2016-05-25 15:53 | PDOC PROGRESS REPORT ---
Subjective Progress Note for:: 05/25/16 Subjective:: There is persistent SOB with minimal productive coughing. Patient remain on supplemental oxygen via nasal cannula with obvious respiratory distress. No reported fever or chills. Patient reported bilateral arm/shoulder region soreness. She denied chest pain. No nausea or vomiting. No abdominal pain. Physical Exam Vital Signs: Temp Pulse Resp BP Pulse Ox 98.7 F 115 H 18 116/71 95 05/25/16 11:09 05/25/16 14:00 05/25/16 13:54 05/25/16 11:09 05/25/16 13:54 Intake & Output 05/24/16 05/25/16 05/26/16 06:59 06:59 06:59 Intake Total 154 3080 458 Output Total 0 Balance 154 3080 458 Weight 62.8 kg 64.3 kg General appearance: PRESENT: mild distress Head exam: PRESENT: atraumatic, normocephalic Eye exam: PRESENT: conjunctiva pink, EOMI, PERRLA. ABSENT: scleral icterus Respiratory exam: PRESENT: decreased breath sounds - at bases, prolonged expiratory phas, rhonchi Cardiovascular exam: PRESENT: RRR. ABSENT: diastolic murmur, rubs, systolic murmur GI/Abdominal exam: PRESENT: normal bowel sounds, soft. ABSENT: distended, guarding, mass, organolmegaly, rebound, tenderness Extremities exam: PRESENT: full ROM Musculoskeletal exam: PRESENT: deformity - involvement of multiple joints with arthritis, tenderness - arms bilaterally, right >> left Neurological exam: PRESENT: alert, awake Psychiatric exam: PRESENT: appropriate affect, normal mood. ABSENT: homicidal ideation, suicidal ideation Skin exam: PRESENT: dry, intact, warm. ABSENT: cyanosis, rash Results Laboratory Results: 05/25/16 06:45 05/25/16 03:50 05/25/16 05/25/16 05/25/16 03:50 03:50 06:45 WBC Cancelled 14.4 H RBC Cancelled 4.40 Hgb Cancelled 11.2 L D Hct Cancelled 34.7 L MCV Cancelled 79 L MCH Cancelled 25.5 L MCHC Cancelled 32.3 RDW Cancelled 19.2 H Plt Count Cancelled 302 Seg Neutrophils % Cancelled 64.0 Lymphocytes % Cancelled 23.3 Monocytes % Cancelled 10.3 Eosinophils % Cancelled 1.9 Basophils % Cancelled 0.5 Absolute Neutrophils Cancelled 9.2 H Absolute Lymphocytes Cancelled 3.4 Absolute Monocytes Cancelled 1.5 H Absolute Eosinophils Cancelled 0.3 Absolute Basophils Cancelled 0.1 Sodium 139.4 Potassium 3.9 Chloride 104 Carbon Dioxide 22 Anion Gap 13 BUN 12 Creatinine 0.85 Est GFR ( Amer) > 60 Est GFR (Non-Af Amer) > 60 Glucose 89 Calcium 8.6 Total Bilirubin 0.9 AST 14 ALT 22 Alkaline Phosphatase 82 Total Protein 5.7 L Albumin 2.9 L 05/24/16 04:40 Nasophary ([facility] Only) MRSA Surveillance Culture - Final NO MRSA RECOVERED 05/23/16 05/23/16 05/24/16 19:32 19:32 01:31 Creatine Kinase 37 34 CK-MB (CK-2) 2.86 Troponin I < 0.012 05/24/16 05/24/16 05/24/16 01:31 07:44 07:44 Creatine Kinase 30 CK-MB (CK-2) 1.87 1.38 Troponin I 0.091 0.069 Impressions: Chest X-Ray 05/23/16 13:35 IMPRESSION: Mild pulmonary vascular prominence. No definite alveolar or interstitial edema Assessment & Plan - Diagnosis (1) Chronic respiratory failure Qualifiers: Respiratory failure complication: hypoxia Qualified Code(s): J96.11 - Chronic respiratory failure with hypoxia Is this a current diagnosis for this admission?: YesPlan: See current medical and medication management. (2) End stage chronic obstructive pulmonary disease Is this a current diagnosis for this admission?: YesPlan: See current medical and medication management. (3) Malignant neoplasm metastatic to left lung Is this a current diagnosis for this admission?: YesPlan: See current medical and medication management. (4) Acute chronic obstructive pulmonary disease with respiratory distress Is this a current diagnosis for this admission?: YesPlan: See current medical and medication management. (5) Pneumonia due to Gram-negative bacteria Is this a current diagnosis for this admission?: YesPlan: Continue IV Levofloxacin coverage. - Time Time Spent with patient: 25-34 minutes Medications reviewed and adjusted accordingly: Yes Anticipated discharge: Home with Homehealth Within: Other - Inpatient Certification Medical Necessity: Need Close Monitoring Due to Risk of Patient Decompensation, Need For IV Fluids, Need For Continuous Telemetry Monitoring, Need for Nebulizer Therapy and Monitoring of Response, Need for IV Antibiotics, Risk of Diagnosis Which Will Require Inpatient Eval/Care/Monitoring Post Hospital Care: D/C Supervisor Vendor Quality Documentation - Plan Summary Plan Summary: See covering physician orders.
[2016-05-25] MEDS ORDERED: BENZONATATE 100 MG CAPSULE PO ONE (19:15)
[2016-05-25] MEDS: BENZONATATE 100 MG CAPSULE PO SCH (21:25)
[2016-05-25] MEDS: ATORVASTATIN CALCIUM 10 MG TABLET PO SCH (21:35)
[2016-05-25] MEDS: CETIRIZINE 5 MG TABLET PO SCH (21:36)
[2016-05-26] MEDS ORDERED: RISPERIDONE 0.25 MG TABLET PO ONE ×2 (00:15→17:00)
[2016-05-26] MEDS: IPRATROPIUM/ALBUTEROL 0.5-2.5 MG/3 ML AMPUL NEB SCH ×8 (02:26→23:45)
[2016-05-26 04:31] LABS: ABSOLUTE BASOPHILS # (AUTO) 0.1 10^3/uL (0.0-0.2); ABSOLUTE EOSINOPHILS # (AUTO) 0.1 10^3/uL (0.0-0.6); ABSOLUTE MONOCYTES (AUTO) 1.5 10^3/uL (0.1-1.4); ABSOLUTE NEUT (AUTO) 9.6 10^3/uL (1.7-8.2); BASOPHILS % (AUTO) 0.6 % (0-2); EOSINOPHILS % (AUTO) 0.9 % (0-6); HEMATOCRIT 31.3 % (36.0-47.0); HGB HCT DIFFERENCE -1.3; LYMPHOCYTES % (AUTO) 14.7 % (13-45); MEAN CORPUSCULAR HGB CONC 31.8 g/dL (32.0-36.0); MEAN CORPUSCULAR VOLUME 79 fl (80-97); MONOCYTES % (AUTO) 11.2 % (3-13); RED BLOOD COUNT 3.98 10^6/uL (3.72-5.28); RED CELL DISTRIBUTION WIDTH 19.1 % (11.5-14.0); SEGMENTED NEUTROPHILS % (AUTO) 72.6 % (42-78); WHITE BLOOD COUNT 13.2 10^3/uL (4.0-10.5)
[2016-05-26 04:51] LABS: ALANINE AMINOTRANSFERASE 18 U/L (9-52); ALBUMIN 2.3 g/dL (3.5-5.0); ALKALINE PHOSPHATASE 85 U/L (38-126); ANION GAP 9 (5-19); ASPARTATE AMINO TRANSFERASE 12 U/L (14-36); BILIRUBIN,TOTAL 0.5 mg/dL (0.2-1.3); BLOOD UREA NITROGEN 6 mg/dL (7-20); CALCIUM 8.4 mg/dL (8.4-10.2); CARBON DIOXIDE 25 mmol/L (22-30); CHLORIDE 106 mmol/L (98-107); CREATININE RESULT 0.67 mg/dL (0.52-1.25); GLUCOSE 87 mg/dL (75-110); POTASSIUM 3.5 mmol/L (3.6-5.0); SODIUM 139.6 mmol/L (137-145); TOTAL PROTEIN 5.3 g/dL (6.3-8.2)
[2016-05-26] MEDS: PREGABALIN 75 MG CAPSULE PO SCH ×3 (06:15→21:48)
[2016-05-26] MEDS: BENZONATATE 100 MG CAPSULE PO SCH ×3 (06:15→21:48)
[2016-05-26] MEDS: NORMAL SALINE 1000 ML 1,000 ML IV PRN (06:15)
[2016-05-26] MEDS: BENZOCAINE/MENTHOL SORE THROAT LOZENGE BUCCAL PRN (07:52)
[2016-05-26] MEDS: ENOXAPARIN SODIUM INJ 40 MG/0.4 ML DISP.SYRIN SUBCUT SCH (07:54)
[2016-05-26] MEDS: CLONAZEPAM 1 MG TABLET PO SCH ×2 (09:01→21:47)
[2016-05-26] MEDS: AMLODIPINE BESYLATE 5 MG TABLET PO SCH (09:01)
[2016-05-26] MEDS: OXYCODONE HCL IR 5 MG TABLET PO PRN (09:01)
[2016-05-26] MEDS: DULOXETINE HCL 30 MG CAPSULE.DR PO SCH ×2 (09:02→21:47)
[2016-05-26] MEDS: LANSOPRAZOLE 30 MG TAB.RAP.DR PO SCH (09:02)
[2016-05-26] MEDS: VALSARTAN 160 MG TABLET PO SCH ×2 (09:02→21:48)
[2016-05-26] MEDS: TIOTROPIUM BROMIDE DPI 5 CAP/KIT (18 MCG/CAP) IH SCH (09:03)
[2016-05-26] MEDS: BUDESONIDE/FORMOTEROL 160-4.5 MCG 60 PUFF/6 GM MDI IH SCH ×2 (09:04→21:47)
--- NOTE | 2016-05-26 15:40 | PDOC PROGRESS REPORT ---
Subjective Progress Note for:: 05/26/16 Subjective:: Patient reported some improvement in her persistent SOB and coughing. Patient remain on supplemental oxygen via nasal cannula. No reported fever or chills. No chest pain. No nausea or vomiting. No abdominal pain. Physical Exam Vital Signs: Temp Pulse Resp BP Pulse Ox 98.1 F 111 H 22 H 132/73 H 99 05/26/16 15:17 05/26/16 15:17 05/26/16 15:17 05/26/16 15:17 05/26/16 15:17 Intake & Output 05/25/16 05/26/16 05/27/16 06:59 06:59 06:59 Intake Total 2593 120 Output Total 300 200 Balance 2293 -80 Weight 65.7 kg Physical Exam: General appearance: PRESENT: mild distress Head exam: PRESENT: atraumatic, normocephalic Eye exam: PRESENT: conjunctiva pink, EOMI, PERRLA. ABSENT: scleral icterus Respiratory exam: PRESENT: decreased breath sounds - at bases, prolonged expiratory phas, rhonchi Cardiovascular exam: PRESENT: RRR. ABSENT: diastolic murmur, rubs, systolic murmur GI/Abdominal exam: PRESENT: normal bowel sounds, soft. ABSENT: distended, guarding, mass, organolmegaly, rebound, tenderness Extremities exam: PRESENT: full ROM Musculoskeletal exam: PRESENT: deformity - involvement of multiple joints with arthritis, tenderness - arms bilaterally, right >> left Neurological exam: PRESENT: alert, awake Psychiatric exam: PRESENT: appropriate affect, normal mood. ABSENT: homicidal ideation, suicidal ideation Skin exam: PRESENT: dry, intact, warm. ABSENT: cyanosis, rash Results Laboratory Results: 05/26/16 03:58 05/26/16 03:58 05/26/16 05/26/16 03:58 03:58 WBC 13.2 H RBC 3.98 Hgb 10.0 L Hct 31.3 L MCV 79 L MCH 25.0 L MCHC 31.8 L RDW 19.1 H Plt Count 317 Seg Neutrophils % 72.6 Lymphocytes % 14.7 Monocytes % 11.2 Eosinophils % 0.9 Basophils % 0.6 Absolute Neutrophils 9.6 H Absolute Lymphocytes 2.0 Absolute Monocytes 1.5 H Absolute Eosinophils 0.1 Absolute Basophils 0.1 Sodium 139.6 Potassium 3.5 L Chloride 106 Carbon Dioxide 25 Anion Gap 9 BUN 6 L Creatinine 0.67 Est GFR ( Amer) > 60 Est GFR (Non-Af Amer) > 60 Glucose 87 Calcium 8.4 Total Bilirubin 0.5 AST 12 L ALT 18 Alkaline Phosphatase 85 Total Protein 5.3 L Albumin 2.3 L Impressions: Chest X-Ray 05/23/16 13:35 IMPRESSION: Mild pulmonary vascular prominence. No definite alveolar or interstitial edema Assessment & Plan - Diagnosis (1) Chronic respiratory failure Qualifiers: Respiratory failure complication: hypoxia Qualified Code(s): J96.11 - Chronic respiratory failure with hypoxia Is this a current diagnosis for this admission?: YesPlan: See current medical and medication management. (2) End stage chronic obstructive pulmonary disease Is this a current diagnosis for this admission?: YesPlan: See current medical and medication management. (3) Malignant neoplasm metastatic to left lung Is this a current diagnosis for this admission?: YesPlan: See current medical and medication management. Patient reported that she will be getting radiation therapy at [facility] in near future. (4) Acute chronic obstructive pulmonary disease with respiratory distress Is this a current diagnosis for this admission?: YesPlan: See current medical and medication management. (5) Pneumonia due to Gram-negative bacteria Is this a current diagnosis for this admission?: YesPlan: Continue IV Levofloxacin coverage for gram positive cocci in cluster on sputum gram stain. I will add Aztreonam for boarder coverage regarding Protus mirabilis. Follow up on final organism identification and sensitivity. 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
[2016-05-26] MEDS: POTASSIUM CHLORIDE 10 MEQ TABLET.SA PO SCH ×2 (16:28→19:55)
[2016-05-26] MEDS ORDERED: FUROSEMIDE INJ/PF 20 MG/2 ML SDV IV ONE (18:30)
[2016-05-26] MEDS: ATORVASTATIN CALCIUM 10 MG TABLET PO SCH (21:48)
[2016-05-26] MEDS: CETIRIZINE 5 MG TABLET PO SCH (21:48)
[2016-05-26] MEDS: AZTREONAM 1 GM in DEXTROSE 5%-WATER 50 ML IV SCH (21:52)
[2016-05-26] MEDS ORDERED: LEVOFLOXACIN 750 MG TABLET PO SCH (22:00)
[2016-05-27] MEDS: IPRATROPIUM/ALBUTEROL 0.5-2.5 MG/3 ML AMPUL NEB SCH ×8 (02:12→23:21)
[2016-05-27] MEDS: OXYCODONE HCL IR 5 MG TABLET PO PRN (02:48)
[2016-05-27] MEDS: BENZOCAINE/MENTHOL SORE THROAT LOZENGE BUCCAL PRN (04:15)
[2016-05-27 05:00] LABS: ABSOLUTE BASOPHILS # (AUTO) 0.1 10^3/uL (0.0-0.2); ABSOLUTE EOSINOPHILS # (AUTO) 0.1 10^3/uL (0.0-0.6); ABSOLUTE LYMPHOCYTES (AUTO) 1.8 10^3/uL (0.5-4.7); ABSOLUTE MONOCYTES (AUTO) 1.5 10^3/uL (0.1-1.4); ABSOLUTE NEUT (AUTO) 11.6 10^3/uL (1.7-8.2); BASOPHILS % (AUTO) 0.4 % (0-2); EOSINOPHILS % (AUTO) 0.9 % (0-6); HEMATOCRIT 30.3 % (36.0-47.0); HEMOGLOBIN 9.9 g/dL (12.0-15.5); HGB HCT DIFFERENCE -0.6; LYMPHOCYTES % (AUTO) 12.2 % (13-45); MEAN CORPUSCULAR HEMOGLOBIN 25.3 pg (27.0-33.4); MEAN CORPUSCULAR HGB CONC 32.5 g/dL (32.0-36.0); MEAN CORPUSCULAR VOLUME 78 fl (80-97); RED CELL DISTRIBUTION WIDTH 19.7 % (11.5-14.0); SEGMENTED NEUTROPHILS % (AUTO) 76.5 % (42-78); WHITE BLOOD COUNT 15.1 10^3/uL (4.0-10.5)
[2016-05-27 05:24] LABS: ANION GAP 11 (5-19); BLOOD UREA NITROGEN 6 mg/dL (7-20); CALCIUM 8.9 mg/dL (8.4-10.2); CARBON DIOXIDE 22 mmol/L (22-30); CHLORIDE 108 mmol/L (98-107); CREATININE RESULT 0.66 mg/dL (0.52-1.25); GLUCOSE 80 mg/dL (75-110); POTASSIUM 4.1 mmol/L (3.6-5.0); SODIUM 141.4 mmol/L (137-145)
[2016-05-27] MEDS: PREGABALIN 75 MG CAPSULE PO SCH ×3 (05:25→22:04)
[2016-05-27] MEDS: BENZONATATE 100 MG CAPSULE PO SCH ×3 (05:25→22:04)
[2016-05-27] MEDS: AZTREONAM 1 GM in DEXTROSE 5%-WATER 50 ML IV SCH ×2 (05:25→13:40)
[2016-05-27] MEDS: RISPERIDONE 0.25 MG TABLET PO SCH ×2 (05:25→17:22)
[2016-05-27] MEDS: ENOXAPARIN SODIUM INJ 40 MG/0.4 ML DISP.SYRIN SUBCUT SCH (08:42)
[2016-05-27] MEDS: CLONAZEPAM 1 MG TABLET PO SCH ×2 (11:06→22:05)
[2016-05-27] MEDS: BUDESONIDE/FORMOTEROL 160-4.5 MCG 60 PUFF/6 GM MDI IH SCH ×2 (11:07→22:04)
[2016-05-27] MEDS: AMLODIPINE BESYLATE 5 MG TABLET PO SCH (11:07)
[2016-05-27] MEDS: LANSOPRAZOLE 30 MG TAB.RAP.DR PO SCH (11:07)
[2016-05-27] MEDS: DULOXETINE HCL 30 MG CAPSULE.DR PO SCH ×2 (11:07→22:04)
[2016-05-27] MEDS: TIOTROPIUM BROMIDE DPI 5 CAP/KIT (18 MCG/CAP) IH SCH (11:08)
[2016-05-27] MEDS: VALSARTAN 160 MG TABLET PO SCH ×2 (11:08→22:04)
[2016-05-27] MEDS ORDERED: VANCOMYCIN HCL 0 MG in DEXTROSE 5%-WATER 250 ML IV NR (18:30)
--- NOTE | 2016-05-27 21:03 | PDOC PROGRESS REPORT ---
Subjective Progress Note for:: 05/27/16 Subjective:: Patient was seen by the bedside, the sputum culture grew MRSA and Proteus the antibiotic to be changed. Patient wants to be DO NOT RESUSCITATE. She does not want to be on life-support if her heart should stop beating. She continued to require positive pressure ventilation, BiPAP to support breathing Physical Exam Vital Signs: Temp Pulse Resp BP Pulse Ox 98.6 F 120 H 17 147/75 H 99 05/27/16 19:36 05/27/16 19:36 05/27/16 19:36 05/27/16 19:36 05/27/16 19:36 Intake & Output 05/26/16 05/27/16 05/28/16 06:59 06:59 06:59 Intake Total 2593 1712 420 Output Total 300 800 200 Balance 2293 912 220 Weight 65.7 kg 66 kg General appearance: PRESENT: mild distress Respiratory exam: PRESENT: crackles, rhonchi Cardiovascular exam: PRESENT: +S1, +S2 GI/Abdominal exam: PRESENT: soft Results Laboratory Results: 05/27/16 04:23 05/27/16 04:23 05/27/16 05/27/16 04:23 04:23 WBC 15.1 H RBC 3.90 Hgb 9.9 L Hct 30.3 L MCV 78 L MCH 25.3 L MCHC 32.5 RDW 19.7 H Plt Count 325 Seg Neutrophils % 76.5 Lymphocytes % 12.2 L Monocytes % 10.0 Eosinophils % 0.9 Basophils % 0.4 Absolute Neutrophils 11.6 H Absolute Lymphocytes 1.8 Absolute Monocytes 1.5 H Absolute Eosinophils 0.1 Absolute Basophils 0.1 Sodium 141.4 Potassium 4.1 Chloride 108 H Carbon Dioxide 22 Anion Gap 11 BUN 6 L Creatinine 0.66 Est GFR ( Amer) > 60 Est GFR (Non-Af Amer) > 60 Glucose 80 Calcium 8.9 Impressions: Chest X-Ray 05/23/16 13:35 IMPRESSION: Mild pulmonary vascular prominence. No definite alveolar or interstitial edema Assessment & Plan - Diagnosis (1) Pneumonia Qualifiers: Pneumonia type: due to unspecified organism Laterality: unspecified laterality Lung location: unspecified part of lung Qualified Code(s) : J18.9 - Pneumonia, unspecified organism Is this a current diagnosis for this admission?: Yes (2) End stage chronic obstructive pulmonary disease Is this a current diagnosis for this admission?: Yes (3) Malignant neoplasm metastatic to left lung Is this a current diagnosis for this admission?: Yes (4) Anemia of chronic disease Is this a current diagnosis for this admission?: Yes (5) MRSA pneumonia Qualifiers: Laterality: unspecified laterality Lung location: unspecified part of lung Qualified Code(s): J15.212 - Pneumonia due to Methicillin resistant Staphylococcus aureus Is this a current diagnosis for this admission?: YesPlan: Start vancomycin (6) Proteus pneumonia Is this a current diagnosis for this admission?: YesPlan: Start ertapenem
[2016-05-27] MEDS: NYSTATIN/DEXAMETH/DIPHEN SUSP 120 ML PO SCH (22:03)
[2016-05-27] MEDS: ATORVASTATIN CALCIUM 10 MG TABLET PO SCH (22:05)
[2016-05-27] MEDS: ERTAPENEM SODIUM 1 GM in NORMAL SALINE 50 ML IV SCH (22:05)
[2016-05-27] MEDS: CETIRIZINE 5 MG TABLET PO SCH (22:05)
[2016-05-28] MEDS: VANCOMYCIN HCL 750 MG in DEXTROSE 5%-WATER 250 ML IV SCH ×2 (00:34→11:49)
[2016-05-28] MEDS: IPRATROPIUM/ALBUTEROL 0.5-2.5 MG/3 ML AMPUL NEB SCH ×8 (02:20→23:31)
[2016-05-28] MEDS: RISPERIDONE 0.25 MG TABLET PO SCH ×2 (05:40→18:52)
[2016-05-28] MEDS: PREGABALIN 75 MG CAPSULE PO SCH ×3 (05:40→22:23)
[2016-05-28] MEDS: BENZONATATE 100 MG CAPSULE PO SCH ×3 (05:41→22:23)
[2016-05-28] MEDS: CLONAZEPAM 1 MG TABLET PO SCH ×2 (11:30→22:22)
[2016-05-28] MEDS: VALSARTAN 160 MG TABLET PO SCH ×2 (11:45→22:23)
[2016-05-28] MEDS: AMLODIPINE BESYLATE 5 MG TABLET PO SCH (11:46)
[2016-05-28] MEDS: DULOXETINE HCL 30 MG CAPSULE.DR PO SCH ×2 (11:46→22:22)
[2016-05-28] MEDS: BUDESONIDE/FORMOTEROL 160-4.5 MCG 60 PUFF/6 GM MDI IH SCH ×2 (11:46→22:21)
[2016-05-28] MEDS: LANSOPRAZOLE 30 MG TAB.RAP.DR PO SCH (11:46)
[2016-05-28] MEDS: NYSTATIN/DEXAMETH/DIPHEN SUSP 120 ML PO SCH ×4 (11:47→22:21)
[2016-05-28] MEDS: ENOXAPARIN SODIUM INJ 40 MG/0.4 ML DISP.SYRIN SUBCUT SCH (11:58)
[2016-05-28] MEDS: TIOTROPIUM BROMIDE DPI 5 CAP/KIT (18 MCG/CAP) IH SCH (14:09)
--- NOTE | 2016-05-28 19:06 | PDOC PROGRESS REPORT ---
Subjective Progress Note for:: 06/04/16 Subjective:: Patient was seen by the bedside, she was supposed to go to [place] on Friday for a PET scan, her condition remains precarious Physical Exam Vital Signs: Temp Pulse Resp BP Pulse Ox 97.8 F 111 H 20 136/71 H 98 05/28/16 15:59 05/28/16 16:55 05/28/16 16:55 05/28/16 15:59 05/28/16 16:55 Intake & Output 05/27/16 05/28/16 05/29/16 06:59 06:59 06:59 Intake Total 1712 848 540 Output Total 800 200 300 Balance 912 648 240 Weight 66 kg 62.7 kg General appearance: PRESENT: mild distress Respiratory exam: PRESENT: wheezes Cardiovascular exam: PRESENT: +S1, +S2 GI/Abdominal exam: PRESENT: soft Neurological exam: PRESENT: alert Results Laboratory Results: 05/27/16 04:23 05/27/16 04:23 Impressions: Chest X-Ray 05/23/16 13:35 IMPRESSION: Mild pulmonary vascular prominence. No definite alveolar or interstitial edema Assessment & Plan - Diagnosis (1) Pneumonia Qualifiers: Pneumonia type: due to unspecified organism Laterality: unspecified laterality Lung location: unspecified part of lung Qualified Code(s) : J18.9 - Pneumonia, unspecified organism Is this a current diagnosis for this admission?: Yes (2) End stage chronic obstructive pulmonary disease Is this a current diagnosis for this admission?: Yes (3) Malignant neoplasm metastatic to left lung Is this a current diagnosis for this admission?: Yes (4) Anemia of chronic disease Is this a current diagnosis for this admission?: Yes (5) MRSA pneumonia Qualifiers: Laterality: unspecified laterality Lung location: unspecified part of lung Qualified Code(s): J15.212 - Pneumonia due to Methicillin resistant Staphylococcus aureus Is this a current diagnosis for this admission?: Yes (6) Proteus pneumonia Is this a current diagnosis for this admission?: Yes
[2016-05-28] MEDS: ERTAPENEM SODIUM 1 GM in NORMAL SALINE 50 ML IV SCH (22:21)
[2016-05-28] MEDS: ATORVASTATIN CALCIUM 10 MG TABLET PO SCH (22:22)
[2016-05-28] MEDS: CETIRIZINE 5 MG TABLET PO SCH (22:23)
[2016-05-29] MEDS: VANCOMYCIN HCL 750 MG in DEXTROSE 5%-WATER 250 ML IV SCH ×2 (00:16→12:28)
[2016-05-29] MEDS: IPRATROPIUM/ALBUTEROL 0.5-2.5 MG/3 ML AMPUL NEB SCH ×8 (02:23→23:39)
[2016-05-29] MEDS: BENZONATATE 100 MG CAPSULE PO SCH ×3 (06:06→21:33)
[2016-05-29] MEDS: RISPERIDONE 0.25 MG TABLET PO SCH ×2 (06:06→17:25)
[2016-05-29] MEDS: PREGABALIN 75 MG CAPSULE PO SCH ×3 (06:06→21:33)
[2016-05-29] MEDS: ENOXAPARIN SODIUM INJ 40 MG/0.4 ML DISP.SYRIN SUBCUT SCH (07:52)
[2016-05-29] MEDS: OXYCODONE HCL IR 5 MG TABLET PO PRN (08:51)
[2016-05-29] MEDS: OXYCODONE-ACETAMINOPHEN 5-325 MG TABLET PO PRN (08:53)
[2016-05-29] MEDS: DULOXETINE HCL 30 MG CAPSULE.DR PO SCH ×2 (09:12→21:33)
[2016-05-29] MEDS: CLONAZEPAM 1 MG TABLET PO SCH ×2 (09:12→21:34)
[2016-05-29] MEDS: AMLODIPINE BESYLATE 5 MG TABLET PO SCH (09:13)
[2016-05-29] MEDS: LANSOPRAZOLE 30 MG TAB.RAP.DR PO SCH (09:13)
[2016-05-29] MEDS: VALSARTAN 160 MG TABLET PO SCH ×2 (09:15→21:37)
[2016-05-29] MEDS: TIOTROPIUM BROMIDE DPI 5 CAP/KIT (18 MCG/CAP) IH SCH (09:31)
[2016-05-29] MEDS: BUDESONIDE/FORMOTEROL 160-4.5 MCG 60 PUFF/6 GM MDI IH SCH ×2 (09:33→21:34)
[2016-05-29] MEDS: BENZOCAINE/MENTHOL SORE THROAT LOZENGE BUCCAL PRN (09:34)
[2016-05-29] MEDS: NYSTATIN/DEXAMETH/DIPHEN SUSP 120 ML PO SCH ×4 (09:38→21:34)
[2016-05-29 11:56] LABS: CREATININE RESULT 0.61 mg/dL (0.52-1.25)
[2016-05-29] MEDS ORDERED: OXYCODONE-ACETAMINOPHEN 5-325 MG TABLET PO PRN (14:44)
--- NOTE | 2016-05-29 16:26 | PDOC PROGRESS REPORT ---
Subjective Progress Note for:: 05/29/16 Subjective:: Patient was seen today by the bedside, she continues to require IV antibiotic, she is supposed to go to [place] for a PET scan regarding staging of lung cancer. Unfortunately, she is in a very poor physical state. She has lost weight with no muscle strength Physical Exam Vital Signs: Temp Pulse Resp BP Pulse Ox 97.8 F 100 14 100/57 L 98 05/29/16 08:48 05/29/16 14:00 05/29/16 13:17 05/29/16 11:52 05/29/16 13:17 Intake & Output 05/28/16 05/29/16 05/30/16 06:59 06:59 06:59 Intake Total 848 1258 0 Output Total 200 300 Balance 648 958 0 Weight 62.7 kg 61.6 kg General appearance: PRESENT: mild distress Eye exam: PRESENT: PERRLA Respiratory exam: PRESENT: wheezes Cardiovascular exam: PRESENT: +S1, +S2 GI/Abdominal exam: PRESENT: soft Neurological exam: PRESENT: alert Results Laboratory Results: 05/27/16 04:23 05/29/16 11:37 05/29/16 11:37 Creatinine 0.61 Est GFR ( Amer) > 60 Est GFR (Non-Af Amer) > 60 Impressions: Chest X-Ray 05/23/16 13:35 IMPRESSION: Mild pulmonary vascular prominence. No definite alveolar or interstitial edema Assessment & Plan - Diagnosis (1) Pneumonia Qualifiers: Pneumonia type: due to unspecified organism Laterality: unspecified laterality Lung location: unspecified part of lung Qualified Code(s) : J18.9 - Pneumonia, unspecified organism Is this a current diagnosis for this admission?: Yes (2) End stage chronic obstructive pulmonary disease Is this a current diagnosis for this admission?: Yes (3) Malignant neoplasm metastatic to left lung Is this a current diagnosis for this admission?: Yes (4) Anemia of chronic disease Is this a current diagnosis for this admission?: Yes (5) MRSA pneumonia Qualifiers: Laterality: unspecified laterality Lung location: unspecified part of lung Qualified Code(s): J15.212 - Pneumonia due to Methicillin resistant Staphylococcus aureus Is this a current diagnosis for this admission?: Yes (6) Proteus pneumonia Is this a current diagnosis for this admission?: Yes
[2016-05-29] MEDS: VANCOMYCIN HCL 1,000 MG in DEXTROSE 5%-WATER 250 ML IV SCH (18:19)
[2016-05-29] MEDS: CETIRIZINE 5 MG TABLET PO SCH (21:33)
[2016-05-29] MEDS: ATORVASTATIN CALCIUM 10 MG TABLET PO SCH (21:33)
[2016-05-29] MEDS: ERTAPENEM SODIUM 1 GM in NORMAL SALINE 50 ML IV SCH (21:39)
[2016-05-30] MEDS ORDERED: VANCOMYCIN HCL 750 MG in DEXTROSE 5%-WATER 250 ML IV SCH ×2
[2016-05-30] MEDS: IPRATROPIUM/ALBUTEROL 0.5-2.5 MG/3 ML AMPUL NEB SCH ×8 (02:14→22:37)
[2016-05-30] MEDS: OXYCODONE HCL IR 5 MG TABLET PO PRN (03:58)
[2016-05-30] MEDS: PREGABALIN 75 MG CAPSULE PO SCH ×3 (05:43→22:44)
[2016-05-30] MEDS: RISPERIDONE 0.25 MG TABLET PO SCH ×2 (05:43→18:16)
[2016-05-30] MEDS: BENZONATATE 100 MG CAPSULE PO SCH ×3 (05:43→22:46)
[2016-05-30] MEDS: VANCOMYCIN HCL 1,000 MG in DEXTROSE 5%-WATER 250 ML IV SCH ×2 (05:45→18:17)
[2016-05-30] MEDS: BUDESONIDE/FORMOTEROL 160-4.5 MCG 60 PUFF/6 GM MDI IH SCH ×2 (10:46→22:46)
[2016-05-30] MEDS: ENOXAPARIN SODIUM INJ 40 MG/0.4 ML DISP.SYRIN SUBCUT SCH (11:04)
[2016-05-30] MEDS: VALSARTAN 160 MG TABLET PO SCH ×2 (11:07→22:44)
[2016-05-30] MEDS: AMLODIPINE BESYLATE 5 MG TABLET PO SCH (11:07)
[2016-05-30] MEDS: DULOXETINE HCL 30 MG CAPSULE.DR PO SCH ×2 (11:07→22:45)
[2016-05-30] MEDS: LANSOPRAZOLE 30 MG TAB.RAP.DR PO SCH (11:07)
[2016-05-30] MEDS: CLONAZEPAM 1 MG TABLET PO SCH ×2 (11:07→22:46)
[2016-05-30] MEDS: NYSTATIN/DEXAMETH/DIPHEN SUSP 120 ML PO SCH ×4 (11:07→22:47)
[2016-05-30] MEDS: TIOTROPIUM BROMIDE DPI 5 CAP/KIT (18 MCG/CAP) IH SCH (11:07)
--- NOTE | 2016-05-30 18:03 | PDOC PROGRESS REPORT ---
Subjective Progress Note for:: 05/30/16 Subjective:: Patient was seen by the bedside, the family was in the room, she was supposed to go to [place] tomorrow for PET scan but she is not in any physical condition to make that appointment tomorrow. Physical Exam Vital Signs: Temp Pulse Resp BP Pulse Ox 97.6 F 95 16 129/65 H 97 05/30/16 16:04 05/30/16 16:28 05/30/16 16:28 05/30/16 16:04 05/30/16 16:28 Intake & Output 05/29/16 05/30/16 05/31/16 06:59 06:59 06:59 Intake Total 1258 1257 25 Output Total 300 Balance 958 1257 25 Weight 61.6 kg 64.2 kg General appearance: PRESENT: severe distress Eye exam: PRESENT: PERRLA Respiratory exam: PRESENT: crackles, wheezes Cardiovascular exam: PRESENT: +S1, +S2 Neurological exam: PRESENT: alert, CN II-XII grossly intact Results Laboratory Results: 05/27/16 04:23 05/29/16 11:37 Impressions: Chest X-Ray 05/23/16 13:35 IMPRESSION: Mild pulmonary vascular prominence. No definite alveolar or interstitial edema Assessment & Plan - Diagnosis (1) Pneumonia Qualifiers: Pneumonia type: due to unspecified organism Laterality: unspecified laterality Lung location: unspecified part of lung Qualified Code(s) : J18.9 - Pneumonia, unspecified organism Is this a current diagnosis for this admission?: Yes (2) End stage chronic obstructive pulmonary disease Is this a current diagnosis for this admission?: Yes (3) Malignant neoplasm metastatic to left lung Is this a current diagnosis for this admission?: Yes (4) Anemia of chronic disease Is this a current diagnosis for this admission?: Yes (5) MRSA pneumonia Qualifiers: Laterality: unspecified laterality Lung location: unspecified part of lung Qualified Code(s): J15.212 - Pneumonia due to Methicillin resistant Staphylococcus aureus Is this a current diagnosis for this admission?: Yes (6) Proteus pneumonia Is this a current diagnosis for this admission?: Yes
[2016-05-30] MEDS: ATORVASTATIN CALCIUM 10 MG TABLET PO SCH (22:44)
[2016-05-30] MEDS: CETIRIZINE 5 MG TABLET PO SCH (22:45)
[2016-05-30] MEDS: ERTAPENEM SODIUM 1 GM in NORMAL SALINE 50 ML IV SCH (22:48)
[2016-05-30] MEDS ORDERED: CETIRIZINE HCL ORAL SOLN 5 MG/5 ML UDCUP ONE (22:52)
[2016-05-31] MEDS: IPRATROPIUM/ALBUTEROL 0.5-2.5 MG/3 ML AMPUL NEB SCH ×7 (02:21→20:39)
[2016-05-31] MEDS: BENZONATATE 100 MG CAPSULE PO SCH ×3 (05:32→22:51)
[2016-05-31] MEDS: VANCOMYCIN HCL 1,000 MG in DEXTROSE 5%-WATER 250 ML IV SCH ×2 (05:32→17:31)
[2016-05-31] MEDS: PREGABALIN 75 MG CAPSULE PO SCH ×3 (05:32→22:51)
[2016-05-31] MEDS: RISPERIDONE 0.25 MG TABLET PO SCH ×2 (05:33→17:31)
[2016-05-31] MEDS: ENOXAPARIN SODIUM INJ 40 MG/0.4 ML DISP.SYRIN SUBCUT SCH (08:42)
[2016-05-31] MEDS: AMLODIPINE BESYLATE 5 MG TABLET PO SCH (11:32)
[2016-05-31] MEDS: DULOXETINE HCL 30 MG CAPSULE.DR PO SCH ×2 (11:32→22:51)
[2016-05-31] MEDS: VALSARTAN 160 MG TABLET PO SCH ×2 (11:32→22:52)
[2016-05-31] MEDS: LANSOPRAZOLE 30 MG TAB.RAP.DR PO SCH (11:32)
[2016-05-31] MEDS: CLONAZEPAM 1 MG TABLET PO SCH ×2 (11:32→22:52)
[2016-05-31] MEDS: NYSTATIN/DEXAMETH/DIPHEN SUSP 120 ML PO SCH ×4 (11:33→22:53)
[2016-05-31] MEDS: BUDESONIDE/FORMOTEROL 160-4.5 MCG 60 PUFF/6 GM MDI IH SCH ×2 (11:33→22:53)
[2016-05-31] MEDS: TIOTROPIUM BROMIDE DPI 5 CAP/KIT (18 MCG/CAP) IH SCH (11:33)
[2016-05-31] MEDS: OXYCODONE HCL IR 5 MG TABLET PO PRN (20:41)
[2016-05-31] MEDS: ATORVASTATIN CALCIUM 10 MG TABLET PO SCH (22:51)
[2016-05-31] MEDS: CETIRIZINE 5 MG TABLET PO SCH (22:52)
[2016-05-31] MEDS: ERTAPENEM SODIUM 1 GM in NORMAL SALINE 50 ML IV SCH (22:53)
[2016-06-01] MEDS: IPRATROPIUM/ALBUTEROL 0.5-2.5 MG/3 ML AMPUL NEB SCH ×4 (02:34→20:18)
[2016-06-01] MEDS: PREGABALIN 75 MG CAPSULE PO SCH ×3 (06:03→23:15)
[2016-06-01] MEDS: BENZONATATE 100 MG CAPSULE PO SCH ×3 (06:03→23:15)
[2016-06-01] MEDS: RISPERIDONE 0.25 MG TABLET PO SCH ×2 (06:03→18:16)
[2016-06-01] MEDS: VANCOMYCIN HCL 1,000 MG in DEXTROSE 5%-WATER 250 ML IV SCH ×2 (06:04→18:15)
[2016-06-01] MEDS: CLONAZEPAM 1 MG TABLET PO SCH ×2 (09:34→23:15)
[2016-06-01] MEDS: LANSOPRAZOLE 30 MG TAB.RAP.DR PO SCH (09:35)
[2016-06-01] MEDS: ENOXAPARIN SODIUM INJ 40 MG/0.4 ML DISP.SYRIN SUBCUT SCH (09:35)
[2016-06-01] MEDS: DULOXETINE HCL 30 MG CAPSULE.DR PO SCH ×2 (09:35→23:15)
[2016-06-01] MEDS: AMLODIPINE BESYLATE 5 MG TABLET PO SCH (09:36)
[2016-06-01] MEDS: BUDESONIDE/FORMOTEROL 160-4.5 MCG 60 PUFF/6 GM MDI IH SCH ×2 (09:39→23:15)
[2016-06-01] MEDS: NYSTATIN/DEXAMETH/DIPHEN SUSP 120 ML PO SCH ×4 (09:40→23:15)
[2016-06-01] MEDS: TIOTROPIUM BROMIDE DPI 5 CAP/KIT (18 MCG/CAP) IH SCH (09:40)
[2016-06-01] MEDS: VALSARTAN 160 MG TABLET PO SCH ×2 (09:44→23:15)
--- NOTE | 2016-06-01 16:04 | PDOC PROGRESS REPORT ---
Subjective Progress Note for:: 05/31/16 Subjective:: Patient was seen by the bedside, are condition is quite poor, she is getting more confused, MRI brain will be done tomorrow to make sure there is no brain metastases Physical Exam Vital Signs: Temp Pulse Resp BP Pulse Ox 97.6 F 108 H 22 H 127/65 H 95 06/01/16 11:48 06/01/16 13:33 06/01/16 13:33 06/01/16 11:48 06/01/16 13:33 Intake & Output 05/31/16 06/01/16 06/02/16 06:59 06:59 06:59 Intake Total 1476 1177 Balance 1476 1177 Weight 65.7 kg 63 kg General appearance: PRESENT: mild distress Eye exam: PRESENT: PERRLA Respiratory exam: PRESENT: wheezes Cardiovascular exam: PRESENT: +S1, +S2 GI/Abdominal exam: PRESENT: soft Neurological exam: PRESENT: alert Results Laboratory Results: 05/27/16 04:23 05/29/16 11:37 Impressions: Chest X-Ray 05/23/16 13:35 IMPRESSION: Mild pulmonary vascular prominence. No definite alveolar or interstitial edema Assessment & Plan - Diagnosis (1) Pneumonia Qualifiers: Pneumonia type: due to unspecified organism Laterality: unspecified laterality Lung location: unspecified part of lung Qualified Code(s) : J18.9 - Pneumonia, unspecified organism Is this a current diagnosis for this admission?: Yes (2) End stage chronic obstructive pulmonary disease Is this a current diagnosis for this admission?: Yes (3) Malignant neoplasm metastatic to left lung Is this a current diagnosis for this admission?: Yes (4) Anemia of chronic disease Is this a current diagnosis for this admission?: Yes (5) MRSA pneumonia Qualifiers: Laterality: unspecified laterality Lung location: unspecified part of lung Qualified Code(s): J15.212 - Pneumonia due to Methicillin resistant Staphylococcus aureus Is this a current diagnosis for this admission?: Yes (6) Proteus pneumonia Is this a current diagnosis for this admission?: Yes
--- NOTE | 2016-06-01 17:03 | PDOC PROGRESS REPORT ---
[id number] brain is ordered, it did not show any bone metastases Physical Exam Vital Signs: Temp Pulse Resp BP Pulse Ox 98.9 F 110 H 20 143/89 H 94 06/01/16 15:53 06/01/16 15:53 06/01/16 15:53 06/01/16 15:53 06/01/16 15:53 Intake & Output 05/31/16 06/01/16 06/02/16 06:59 06:59 06:59 Intake Total 1476 1177 Balance 1476 1177 Weight 65.7 kg 63 kg General appearance: PRESENT: no acute distress Eye exam: PRESENT: PERRLA Cardiovascular exam: PRESENT: +S1, +S2 GI/Abdominal exam: PRESENT: soft Neurological exam: PRESENT: alert, CN II-XII grossly intact Results Laboratory Results: 05/27/16 04:23 05/29/16 11:37 Impressions: Chest X-Ray 05/23/16 13:35 IMPRESSION: Mild pulmonary vascular prominence. No definite alveolar or interstitial edema Assessment & Plan - Diagnosis (1) Pneumonia Qualifiers: Pneumonia type: due to unspecified organism Laterality: unspecified laterality Lung location: unspecified part of lung Qualified Code(s) : J18.9 - Pneumonia, unspecified organism Is this a current diagnosis for this admission?: Yes (2) End stage chronic obstructive pulmonary disease Is this a current diagnosis for this admission?: Yes (3) Malignant neoplasm metastatic to left lung Is this a current diagnosis for this admission?: Yes (4) Anemia of chronic disease Is this a current diagnosis for this admission?: Yes (5) MRSA pneumonia Qualifiers: Laterality: unspecified laterality Lung location: unspecified part of lung Qualified Code(s): J15.212 - Pneumonia due to Methicillin resistant Staphylococcus aureus Is this a current diagnosis for this admission?: Yes (6) Proteus pneumonia Is this a current diagnosis for this admission?: Yes
[2016-06-01 19:07] LABS: CREATININE RESULT 1.43 mg/dL (0.52-1.25)
[2016-06-01] MEDS: ERTAPENEM SODIUM 1 GM in NORMAL SALINE 50 ML IV SCH (22:56)
[2016-06-01] MEDS: ATORVASTATIN CALCIUM 10 MG TABLET PO SCH (23:15)
[2016-06-01] MEDS: CETIRIZINE 5 MG TABLET PO SCH (23:15)
[2016-06-02] MEDS: IPRATROPIUM/ALBUTEROL 0.5-2.5 MG/3 ML AMPUL NEB SCH ×4 (02:26→19:16)
[2016-06-02] MEDS: VANCOMYCIN HCL 1,000 MG in DEXTROSE 5%-WATER 250 ML IV SCH (05:56)
[2016-06-02] MEDS: BENZONATATE 100 MG CAPSULE PO SCH ×2 (05:57→14:31)
[2016-06-02] MEDS: PREGABALIN 75 MG CAPSULE PO SCH ×2 (05:57→14:35)
[2016-06-02] MEDS: RISPERIDONE 0.25 MG TABLET PO SCH ×2 (05:57→18:15)
[2016-06-02] MEDS: ENOXAPARIN SODIUM INJ 40 MG/0.4 ML DISP.SYRIN SUBCUT SCH (10:05)
[2016-06-02] MEDS: DULOXETINE HCL 30 MG CAPSULE.DR PO SCH (10:06)
[2016-06-02] MEDS: CLONAZEPAM 1 MG TABLET PO SCH (10:06)
[2016-06-02] MEDS: AMLODIPINE BESYLATE 5 MG TABLET PO SCH (10:06)
[2016-06-02] MEDS: LANSOPRAZOLE 30 MG TAB.RAP.DR PO SCH (10:08)
[2016-06-02] MEDS: BUDESONIDE/FORMOTEROL 160-4.5 MCG 60 PUFF/6 GM MDI IH SCH (10:09)
[2016-06-02] MEDS: NYSTATIN/DEXAMETH/DIPHEN SUSP 120 ML PO SCH ×3 (10:09→18:15)
[2016-06-02] MEDS: TIOTROPIUM BROMIDE DPI 5 CAP/KIT (18 MCG/CAP) IH SCH (10:09)
[2016-06-02] MEDS: VALSARTAN 160 MG TABLET PO SCH (10:21)
[2016-06-02 15:56] LABS: CREATINE KINASE MB 0.37 ng/mL (<4.55)
[2016-06-02 15:57] LABS: TROPONIN I < 0.012 ng/mL
--- NOTE | 2016-06-02 16:17 | PDOC PROGRESS REPORT ---
Subjective Progress Note for:: 06/02/16 Subjective:: She was seen by the bedside, she is not eating food, she said she has no appetite, she continues to lose weight and she has lost tremendous muscle mass Physical Exam Vital Signs: Temp Pulse Resp BP Pulse Ox 98.4 F 108 H 20 128/75 H 94 06/02/16 11:33 06/02/16 14:44 06/02/16 14:44 06/02/16 11:33 06/02/16 14:44 Intake & Output 06/01/16 06/02/16 06/03/16 06:59 06:59 06:59 Intake Total 1177 873 120 Balance 1177 873 120 Weight 63 kg 63.5 kg General appearance: PRESENT: mild distress Head exam: PRESENT: atraumatic, normocephalic Eye exam: PRESENT: PERRLA Ear exam: PRESENT: normal external ear exam Mouth exam: PRESENT: moist, tongue midline Neck exam: PRESENT: full ROM Respiratory exam: PRESENT: crackles, rhonchi Cardiovascular exam: PRESENT: +S1, +S2 Pulses: PRESENT: normal dorsalis pedis pul, +2 pedal pulses bilateral Vascular exam: PRESENT: normal capillary refill GI/Abdominal exam: PRESENT: normal bowel sounds, soft Rectal exam: PRESENT: deferred Neurological exam: PRESENT: alert, CN II-XII grossly intact Psychiatric exam: PRESENT: appropriate affect, normal mood Skin exam: PRESENT: dry, intact, warm Results Laboratory Results: 05/27/16 04:23 06/02/16 14:53 06/01/16 06/02/16 06/02/16 18:12 14:53 14:53 Sodium Cancelled Cancelled Potassium Cancelled Cancelled Chloride Cancelled Cancelled Carbon Dioxide Cancelled Cancelled Anion Gap Cancelled Cancelled BUN Cancelled Cancelled Creatinine 1.43 H Cancelled Cancelled Est GFR ( Amer) 44 L Cancelled Cancelled Est GFR (Non-Af Amer) 36 L Cancelled Cancelled Glucose Cancelled Cancelled Calcium Cancelled Cancelled Magnesium Cancelled Total Bilirubin Cancelled AST Cancelled ALT Cancelled Alkaline Phosphatase Cancelled Total Protein Cancelled Albumin Cancelled 06/02/16 06/02/16 14:53 14:53 Creatine Kinase Cancelled CK-MB (CK-2) 0.37 Troponin I < 0.012 Impressions: Chest X-Ray 05/23/16 13:35 IMPRESSION: Mild pulmonary vascular prominence. No definite alveolar or interstitial edema Head MRI 06/01/16 00:00 IMPRESSION: 1. Limited study due to motion. No gross metastatic disease to the brain allowing for this. Chronic changes as above. Assessment & Plan - Diagnosis (1) Pneumonia Qualifiers: Pneumonia type: due to unspecified organism Laterality: unspecified laterality Lung location: unspecified part of lung Qualified Code(s) : J18.9 - Pneumonia, unspecified organism Is this a current diagnosis for this admission?: Yes (2) End stage chronic obstructive pulmonary disease Is this a current diagnosis for this admission?: Yes (3) Malignant neoplasm metastatic to left lung Is this a current diagnosis for this admission?: Yes (4) Anemia of chronic disease Is this a current diagnosis for this admission?: Yes (5) MRSA pneumonia Qualifiers: Laterality: unspecified laterality Lung location: unspecified part of lung Qualified Code(s): J15.212 - Pneumonia due to Methicillin resistant Staphylococcus aureus Is this a current diagnosis for this admission?: Yes (6) Proteus pneumonia Is this a current diagnosis for this admission?: Yes (7) Anorexia Is this a current diagnosis for this admission?: YesPlan: She started on Marinol 5 MG one tablet 2 times a day
[2016-06-02 16:34] LABS: ALANINE AMINOTRANSFERASE 21 U/L (9-52); ALBUMIN 2.5 g/dL (3.5-5.0); ALKALINE PHOSPHATASE 84 U/L (38-126); ANION GAP 11 (5-19); ASPARTATE AMINO TRANSFERASE 17 U/L (14-36); BILIRUBIN,TOTAL 0.4 mg/dL (0.2-1.3); BLOOD UREA NITROGEN 15 mg/dL (7-20); CALCIUM 9.3 mg/dL (8.4-10.2); CARBON DIOXIDE 27 mmol/L (22-30); CHLORIDE 103 mmol/L (98-107); CREATINE KINASE 37 U/L (30-135); CREATININE RESULT 1.46 mg/dL (0.52-1.25); GLUCOSE 104 mg/dL (75-110); MAGNESIUM 1.9 mg/dL (1.6-2.3); POTASSIUM 3.5 mmol/L (3.6-5.0); TOTAL PROTEIN 6.2 g/dL (6.3-8.2)
[2016-06-02 17:42] LABS: HEMATOCRIT 33.3 % (36.0-47.0); HEMOGLOBIN 10.5 g/dL (12.0-15.5); HGB HCT DIFFERENCE -1.8; MEAN CORPUSCULAR HEMOGLOBIN 24.3 pg (27.0-33.4); MEAN CORPUSCULAR HGB CONC 31.4 g/dL (32.0-36.0); MEAN CORPUSCULAR VOLUME 77 fl (80-97); RED BLOOD COUNT 4.32 10^6/uL (3.72-5.28); WHITE BLOOD COUNT 16.6 10^3/uL (4.0-10.5)
[2016-06-02 18:08] LABS: BAND NEUTROPHILS % (MANUAL) 3 % (3-5); BASOPHILS % (MANUAL) 0 % (0-2); EOSINOPHILS % (MANUAL) 0 % (0-6); LYMPHOCYTES % (MANUAL) 20 % (13-45); TOTAL CELLS COUNTED 100
[2016-06-02 18:12] LABS: ANISOCYTOSIS 2+; HYPOCHROMASIA SLIGHT; MICROCYTOSIS 1+; PLATELET CLUMPS PRESENT
[2016-06-02] MEDS: DRONABINOL 2.5 MG CAPSULE PO SCH (18:14)
[2016-06-02] MEDS ORDERED: POTASSIUM CHLORIDE 10 MEQ TABLET.SA PO ONE (20:00)
--- NOTE | 2016-06-02 21:51 | EKG REPORT ---
SEVERITY:- ABNORMAL ECG - SINUS TACHYCARDIA LAD, CONSIDER LAFB OR INFERIOR INFARCT BORDERLINE T ABNORMALITIES, ANT-LAT LEADS : Confirmed by: Latoya Vasquez 02-Jun-2016 21:50:53
[2016-06-03] MEDS: ERTAPENEM SODIUM 1 GM in NORMAL SALINE 50 ML IV SCH (00:15)
[2016-06-03] MEDS: BENZONATATE 100 MG CAPSULE PO SCH ×4 (00:27→22:58)
[2016-06-03] MEDS: BUDESONIDE/FORMOTEROL 160-4.5 MCG 60 PUFF/6 GM MDI IH SCH ×3 (00:27→22:58)
[2016-06-03] MEDS: PREGABALIN 75 MG CAPSULE PO SCH ×4 (00:27→22:58)
[2016-06-03] MEDS: CLONAZEPAM 1 MG TABLET PO SCH ×3 (00:27→22:58)
[2016-06-03] MEDS: CETIRIZINE 5 MG TABLET PO SCH ×2 (00:27→22:58)
[2016-06-03] MEDS: VALSARTAN 160 MG TABLET PO SCH ×3 (00:27→22:58)
[2016-06-03] MEDS: NYSTATIN/DEXAMETH/DIPHEN SUSP 120 ML PO SCH ×5 (00:27→22:58)
[2016-06-03] MEDS: ATORVASTATIN CALCIUM 10 MG TABLET PO SCH ×2 (00:27→22:58)
[2016-06-03] MEDS: DULOXETINE HCL 30 MG CAPSULE.DR PO SCH ×3 (00:27→22:58)
[2016-06-03] MEDS: IPRATROPIUM/ALBUTEROL 0.5-2.5 MG/3 ML AMPUL NEB SCH ×4 (01:59→19:46)
[2016-06-03] MEDS: VANCOMYCIN HCL 750 MG in DEXTROSE 5%-WATER 250 ML IV SCH (05:36)
[2016-06-03] MEDS: DRONABINOL 2.5 MG CAPSULE PO SCH ×2 (06:44→17:00)
[2016-06-03] MEDS: RISPERIDONE 0.25 MG TABLET PO SCH ×2 (06:44→17:00)
[2016-06-03] MEDS: ENOXAPARIN SODIUM INJ 40 MG/0.4 ML DISP.SYRIN SUBCUT SCH (09:28)
[2016-06-03] MEDS: LANSOPRAZOLE 30 MG TAB.RAP.DR PO SCH (09:29)
[2016-06-03] MEDS: AMLODIPINE BESYLATE 5 MG TABLET PO SCH (09:29)
[2016-06-03] MEDS: TIOTROPIUM BROMIDE DPI 5 CAP/KIT (18 MCG/CAP) IH SCH (09:29)
--- NOTE | 2016-06-03 20:32 | PDOC PROGRESS REPORT ---
Subjective Progress Note for:: 06/03/16 Subjective:: Patient's condition is about the same, she continues to deteriorate and getting more confused. I spoke to the patient's daughter. They now her condition is critical, she is not eating and she refused a PEG tube Physical Exam Vital Signs: Temp Pulse Resp BP Pulse Ox 97.5 F 105 H 20 139/70 H 100 06/03/16 15:17 06/03/16 15:17 06/03/16 15:17 06/03/16 15:17 06/03/16 16:40 Intake & Output 06/02/16 06/03/16 06/04/16 06:59 06:59 06:59 Intake Total 873 675 3 Output Total 600 Balance 873 75 3 Weight 63.5 kg 63.3 kg General appearance: PRESENT: mild distress Eye exam: PRESENT: PERRLA Respiratory exam: PRESENT: wheezes Cardiovascular exam: PRESENT: +S1, +S2 Results Laboratory Results: 06/02/16 17:20 06/02/16 16:05 06/02/16 06/02/16 06/02/16 14:53 14:53 16:05 Creatine Kinase Cancelled 37 CK-MB (CK-2) 0.37 Troponin I < 0.012 Impressions: Chest X-Ray 05/23/16 13:35 IMPRESSION: Mild pulmonary vascular prominence. No definite alveolar or interstitial edema Head MRI 06/01/16 00:00 IMPRESSION: 1. Limited study due to motion. No gross metastatic disease to the brain allowing for this. Chronic changes as above. Assessment & Plan - Diagnosis (1) Pneumonia Qualifiers: Pneumonia type: due to unspecified organism Laterality: unspecified laterality Lung location: unspecified part of lung Qualified Code(s) : J18.9 - Pneumonia, unspecified organism Is this a current diagnosis for this admission?: Yes (2) End stage chronic obstructive pulmonary disease Is this a current diagnosis for this admission?: Yes (3) Malignant neoplasm metastatic to left lung Is this a current diagnosis for this admission?: Yes (4) Anemia of chronic disease Is this a current diagnosis for this admission?: Yes (5) MRSA pneumonia Qualifiers: Laterality: unspecified laterality Lung location: unspecified part of lung Qualified Code(s): J15.212 - Pneumonia due to Methicillin resistant Staphylococcus aureus Is this a current diagnosis for this admission?: YesPlan: Continue IV antibiotic (6) Proteus pneumonia Is this a current diagnosis for this admission?: Yes (7) Anorexia Is this a current diagnosis for this admission?: YesPlan: Continue Marinol 5 MG one tablet 2 times a day
[2016-06-04] MEDS: IPRATROPIUM/ALBUTEROL 0.5-2.5 MG/3 ML AMPUL NEB SCH ×4 (02:11→20:19)
[2016-06-04] MEDS: VANCOMYCIN HCL 750 MG in DEXTROSE 5%-WATER 250 ML IV SCH (05:39)
[2016-06-04] MEDS: BENZONATATE 100 MG CAPSULE PO SCH ×3 (05:49→23:04)
[2016-06-04] MEDS: DRONABINOL 2.5 MG CAPSULE PO SCH ×2 (05:49→18:42)
[2016-06-04] MEDS: PREGABALIN 75 MG CAPSULE PO SCH ×2 (05:49→15:10)
[2016-06-04] MEDS: RISPERIDONE 0.25 MG TABLET PO SCH ×2 (05:49→23:04)
[2016-06-04] MEDS: ENOXAPARIN SODIUM INJ 40 MG/0.4 ML DISP.SYRIN SUBCUT SCH (08:23)
[2016-06-04] MEDS: LANSOPRAZOLE 30 MG TAB.RAP.DR PO SCH (10:58)
[2016-06-04] MEDS: CLONAZEPAM 1 MG TABLET PO SCH (10:59)
[2016-06-04] MEDS: AMLODIPINE BESYLATE 5 MG TABLET PO SCH (10:59)
[2016-06-04] MEDS: TIOTROPIUM BROMIDE DPI 5 CAP/KIT (18 MCG/CAP) IH SCH (10:59)
[2016-06-04] MEDS: DULOXETINE HCL 30 MG CAPSULE.DR PO SCH (10:59)
[2016-06-04] MEDS: VALSARTAN 160 MG TABLET PO SCH ×2 (10:59→22:13)
[2016-06-04] MEDS: BUDESONIDE/FORMOTEROL 160-4.5 MCG 60 PUFF/6 GM MDI IH SCH ×2 (11:00→23:04)
[2016-06-04] MEDS: NYSTATIN/DEXAMETH/DIPHEN SUSP 120 ML PO SCH ×4 (11:00→23:04)
--- NOTE | 2016-06-04 18:23 | PDOC PROGRESS REPORT ---
Subjective Progress Note for:: 06/04/16 Subjective:: Patient's condition remains poor, she is confused ,her words are not comprehensible. She continues to decline very rapidly Physical Exam Vital Signs: Temp Pulse Resp BP Pulse Ox 98.0 F 103 H 20 149/71 H 95 06/04/16 15:22 06/04/16 15:22 06/04/16 15:22 06/04/16 15:22 06/04/16 15:22 Intake & Output 06/03/16 06/04/16 06/05/16 06:59 06:59 06:59 Intake Total 675 353 360 Output Total 600 Balance 75 353 360 Weight 63.3 kg 60.7 kg General appearance: PRESENT: no acute distress Eye exam: PRESENT: PERRLA Respiratory exam: PRESENT: rhonchi Cardiovascular exam: PRESENT: +S1, +S2 GI/Abdominal exam: PRESENT: soft Neurological exam: PRESENT: alert Results Laboratory Results: 06/02/16 17:20 06/02/16 16:05 06/02/16 06/02/16 06/02/16 14:53 14:53 16:05 Creatine Kinase Cancelled 37 CK-MB (CK-2) 0.37 Troponin I < 0.012 Impressions: Chest X-Ray 05/23/16 13:35 IMPRESSION: Mild pulmonary vascular prominence. No definite alveolar or interstitial edema Head MRI 06/01/16 00:00 IMPRESSION: 1. Limited study due to motion. No gross metastatic disease to the brain allowing for this. Chronic changes as above. 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
[2016-06-04] MEDS: CETIRIZINE 5 MG TABLET PO SCH (23:04)
[2016-06-04] MEDS: ATORVASTATIN CALCIUM 10 MG TABLET PO SCH (23:04)
[2016-06-05] MEDS: CLONAZEPAM 1 MG TABLET PO SCH ×3 (00:51→21:36)
[2016-06-05] MEDS: PREGABALIN 75 MG CAPSULE PO SCH ×4 (00:51→21:27)
[2016-06-05] MEDS: DULOXETINE HCL 30 MG CAPSULE.DR PO SCH ×3 (00:51→21:27)
[2016-06-05] MEDS: IPRATROPIUM/ALBUTEROL 0.5-2.5 MG/3 ML AMPUL NEB SCH ×4 (02:21→20:19)
[2016-06-05] MEDS: VANCOMYCIN HCL 750 MG in DEXTROSE 5%-WATER 250 ML IV SCH (05:11)
[2016-06-05] MEDS: DRONABINOL 2.5 MG CAPSULE PO SCH ×2 (05:33→17:57)
[2016-06-05] MEDS: RISPERIDONE 0.25 MG TABLET PO SCH ×2 (05:33→17:57)
[2016-06-05] MEDS: BENZONATATE 100 MG CAPSULE PO SCH ×3 (05:33→21:27)
[2016-06-05 06:16] LABS: CREATININE RESULT 1.57 mg/dL (0.52-1.25)
[2016-06-05] MEDS: LANSOPRAZOLE 30 MG TAB.RAP.DR PO SCH (10:45)
[2016-06-05] MEDS: AMLODIPINE BESYLATE 5 MG TABLET PO SCH (10:47)
[2016-06-05] MEDS: NYSTATIN/DEXAMETH/DIPHEN SUSP 120 ML PO SCH ×4 (10:50→21:27)
[2016-06-05] MEDS: VALSARTAN 160 MG TABLET PO SCH ×2 (10:50→21:27)
[2016-06-05] MEDS: BUDESONIDE/FORMOTEROL 160-4.5 MCG 60 PUFF/6 GM MDI IH SCH ×2 (10:50→21:27)
[2016-06-05] MEDS: ENOXAPARIN SODIUM INJ 40 MG/0.4 ML DISP.SYRIN SUBCUT SCH (10:51)
[2016-06-05] MEDS: TIOTROPIUM BROMIDE DPI 5 CAP/KIT (18 MCG/CAP) IH SCH (10:51)
--- NOTE | 2016-06-05 16:47 | PDOC PROGRESS REPORT ---
Subjective Progress Note for:: 06/05/16 Subjective:: Patient was seen by the bedside, I'm not seeing any signs of improvement, i will get consultation from discharge planning to arrange for transfer to nursing home home. She is not particularly a good candidate at this point for any kind of treatment for cancer, she has extremely poor function extremely wasted with severe anorexia. Family knows patient's condition is very poor. She is a DO NOT RESUSCITATE status Physical Exam Vital Signs: Temp Pulse Resp BP Pulse Ox 98.1 F 102 H 21 H 148/69 H 92 06/05/16 11:42 06/05/16 14:11 06/05/16 14:11 06/05/16 11:42 06/05/16 11:42 Intake & Output 06/04/16 06/05/16 06/06/16 06:59 06:59 06:59 Intake Total 353 825 480 Output Total 0 Balance 353 825 480 Weight 60.7 kg 60.4 kg General appearance: PRESENT: hard of hearing Eye exam: PRESENT: PERRLA Respiratory exam: PRESENT: decreased breath sounds Cardiovascular exam: PRESENT: +S1, +S2 Results Laboratory Results: 06/02/16 17:20 06/05/16 04:48 06/05/16 04:48 Creatinine 1.57 H Est GFR ( Amer) 39 L Est GFR (Non-Af Amer) 32 L 06/02/16 06/02/16 06/02/16 14:53 14:53 16:05 Creatine Kinase Cancelled 37 CK-MB (CK-2) 0.37 Troponin I < 0.012 Impressions: Chest X-Ray 05/23/16 13:35 IMPRESSION: Mild pulmonary vascular prominence. No definite alveolar or interstitial edema Head MRI 06/01/16 00:00 IMPRESSION: 1. Limited study due to motion. No gross metastatic disease to the brain allowing for this. Chronic changes as above. 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
[2016-06-05] MEDS: CETIRIZINE 5 MG TABLET PO SCH (21:27)
[2016-06-05] MEDS: ATORVASTATIN CALCIUM 10 MG TABLET PO SCH (21:27)
[2016-06-06] MEDS: IPRATROPIUM/ALBUTEROL 0.5-2.5 MG/3 ML AMPUL NEB SCH ×4 (01:47→20:16)
[2016-06-06] MEDS: RISPERIDONE 0.25 MG TABLET PO SCH ×2 (05:27→17:44)
[2016-06-06] MEDS: DRONABINOL 2.5 MG CAPSULE PO SCH ×2 (05:27→17:44)
[2016-06-06] MEDS: PREGABALIN 75 MG CAPSULE PO SCH ×3 (05:27→22:45)
[2016-06-06] MEDS: BENZONATATE 100 MG CAPSULE PO SCH ×3 (05:27→22:44)
[2016-06-06 06:24] LABS: CREATININE RESULT 1.76 mg/dL (0.52-1.25)
[2016-06-06] MEDS: VANCOMYCIN HCL 750 MG in DEXTROSE 5%-WATER 250 ML IV SCH (06:36)
[2016-06-06 09:30] LABS: ABSOLUTE EOSINOPHILS # (AUTO) 0.3 10^3/uL (0.0-0.6); ABSOLUTE LYMPHOCYTES (AUTO) 2.2 10^3/uL (0.5-4.7); ABSOLUTE MONOCYTES (AUTO) 1.2 10^3/uL (0.1-1.4); ABSOLUTE NEUT (AUTO) 7.2 10^3/uL (1.7-8.2); BASOPHILS % (AUTO) 0.4 % (0-2); EOSINOPHILS % (AUTO) 2.5 % (0-6); HEMATOCRIT 30.3 % (36.0-47.0); HEMOGLOBIN 9.8 g/dL (12.0-15.5); HGB HCT DIFFERENCE -0.9; LYMPHOCYTES % (AUTO) 20.4 % (13-45); MEAN CORPUSCULAR HGB CONC 32.4 g/dL (32.0-36.0); MEAN CORPUSCULAR VOLUME 77 fl (80-97); MONOCYTES % (AUTO) 10.9 % (3-13); RED BLOOD COUNT 3.91 10^6/uL (3.72-5.28); RED CELL DISTRIBUTION WIDTH 21.2 % (11.5-14.0); SEGMENTED NEUTROPHILS % (AUTO) 65.8 % (42-78)
[2016-06-06] MEDS: ENOXAPARIN SODIUM INJ 40 MG/0.4 ML DISP.SYRIN SUBCUT SCH (12:35)
[2016-06-06] MEDS: AMLODIPINE BESYLATE 5 MG TABLET PO SCH (12:44)
[2016-06-06] MEDS: BUDESONIDE/FORMOTEROL 160-4.5 MCG 60 PUFF/6 GM MDI IH SCH ×2 (12:45→22:46)
[2016-06-06] MEDS: NYSTATIN/DEXAMETH/DIPHEN SUSP 120 ML PO SCH ×4 (12:45→22:46)
[2016-06-06] MEDS: LANSOPRAZOLE 30 MG TAB.RAP.DR PO SCH (12:45)
[2016-06-06] MEDS: CLONAZEPAM 1 MG TABLET PO SCH ×2 (12:45→22:44)
[2016-06-06] MEDS: DULOXETINE HCL 30 MG CAPSULE.DR PO SCH ×2 (12:45→22:45)
[2016-06-06] MEDS: VALSARTAN 160 MG TABLET PO SCH ×2 (12:45→22:51)
[2016-06-06] MEDS: TIOTROPIUM BROMIDE DPI 5 CAP/KIT (18 MCG/CAP) IH SCH (12:50)
[2016-06-06] MEDS: OXYCODONE HCL IR 5 MG TABLET PO PRN (13:51)
[2016-06-06] MEDS: NYSTATIN CREAM 15 GM TP SCH (17:45)
[2016-06-06] MEDS ORDERED: ERGOCALCIFEROL (VITAMIN D2) 50000 UNIT (1.25 MG) CAPSULE PO SCH (18:00)
--- NOTE | 2016-06-06 19:53 | PDOC PROGRESS REPORT ---
Subjective Progress Note for:: 06/06/16 Subjective:: The plan is to transfer patient to halfway for rehabilitation and discharge planning is working on that , I explained this to the patient's family and the patient about the plan Physical Exam Vital Signs: Temp Pulse Resp BP Pulse Ox 97.6 F 99 16 121/44 L 95 06/06/16 15:57 06/06/16 15:57 06/06/16 15:57 06/06/16 15:57 06/06/16 15:57 Intake & Output 06/05/16 06/06/16 06/07/16 06:59 06:59 06:59 Intake Total 825 1093 123 Output Total 0 Balance 825 1093 123 Weight 60.4 kg 58.9 kg General appearance: PRESENT: no acute distress Eye exam: PRESENT: PERRLA Respiratory exam: PRESENT: rales Cardiovascular exam: PRESENT: +S1, +S2 GI/Abdominal exam: PRESENT: soft Results Laboratory Results: 06/06/16 05:39 06/06/16 05:39 06/06/16 06/06/16 05:39 05:39 WBC 11.0 H RBC 3.91 Hgb 9.8 L Hct 30.3 L MCV 77 L MCH 25.0 L MCHC 32.4 RDW 21.2 H Plt Count 455 H Seg Neutrophils % 65.8 Lymphocytes % 20.4 Monocytes % 10.9 Eosinophils % 2.5 Basophils % 0.4 Absolute Neutrophils 7.2 Absolute Lymphocytes 2.2 Absolute Monocytes 1.2 Absolute Eosinophils 0.3 Absolute Basophils 0.0 Creatinine 1.76 H Est GFR ( Amer) 34 L Est GFR (Non-Af Amer) 28 L 06/02/16 06/02/16 06/02/16 14:53 14:53 16:05 Creatine Kinase Cancelled 37 CK-MB (CK-2) 0.37 Troponin I < 0.012 Impressions: Chest X-Ray 05/23/16 13:35 IMPRESSION: Mild pulmonary vascular prominence. No definite alveolar or interstitial edema Head MRI 06/01/16 00:00 IMPRESSION: 1. Limited study due to motion. No gross metastatic disease to the brain allowing for this. Chronic changes as above. 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
[2016-06-06] MEDS: ATORVASTATIN CALCIUM 10 MG TABLET PO SCH (22:44)
[2016-06-06] MEDS: CETIRIZINE 5 MG TABLET PO SCH (22:45)
[2016-06-07] MEDS: IPRATROPIUM/ALBUTEROL 0.5-2.5 MG/3 ML AMPUL NEB SCH ×4 (01:29→20:46)
[2016-06-07] MEDS: PREGABALIN 75 MG CAPSULE PO SCH ×3 (06:36→21:33)
[2016-06-07] MEDS: BENZONATATE 100 MG CAPSULE PO SCH ×3 (06:37→21:33)
[2016-06-07] MEDS: DRONABINOL 2.5 MG CAPSULE PO SCH ×2 (06:37→17:59)
[2016-06-07] MEDS: RISPERIDONE 0.25 MG TABLET PO SCH ×2 (06:37→17:56)
[2016-06-07] MEDS: OXYCODONE HCL IR 5 MG TABLET PO PRN ×2 (08:17→17:59)
[2016-06-07] MEDS: OXYCODONE-ACETAMINOPHEN 5-325 MG TABLET PO PRN ×2 (08:18→17:55)
[2016-06-07] MEDS: ENOXAPARIN SODIUM INJ 40 MG/0.4 ML DISP.SYRIN SUBCUT SCH (08:18)
[2016-06-07] MEDS: LANSOPRAZOLE 30 MG TAB.RAP.DR PO SCH (10:11)
[2016-06-07] MEDS: DULOXETINE HCL 30 MG CAPSULE.DR PO SCH ×2 (10:11→21:33)
[2016-06-07] MEDS: AMLODIPINE BESYLATE 5 MG TABLET PO SCH (10:12)
[2016-06-07] MEDS: NYSTATIN CREAM 15 GM TP SCH ×2 (10:19→17:54)
[2016-06-07] MEDS: BUDESONIDE/FORMOTEROL 160-4.5 MCG 60 PUFF/6 GM MDI IH SCH ×2 (10:20→21:32)
[2016-06-07] MEDS: TIOTROPIUM BROMIDE DPI 5 CAP/KIT (18 MCG/CAP) IH SCH (10:20)
[2016-06-07] MEDS: VALSARTAN 160 MG TABLET PO SCH ×2 (10:20→21:32)
[2016-06-07] MEDS: NYSTATIN/DEXAMETH/DIPHEN SUSP 120 ML PO SCH ×4 (10:20→21:32)
[2016-06-07] MEDS: CLONAZEPAM 1 MG TABLET PO SCH ×2 (10:20→21:33)
--- NOTE | 2016-06-07 14:39 | PDOC TRANSFER SUMMARY ---
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 Is this a current diagnosis for this admission?: Yes (4) Anemia of chronic disease Is this a current diagnosis for this admission?: Yes (5) MRSA pneumonia Is this a current diagnosis for this admission?: Yes (6) Proteus pneumonia Is this a current diagnosis for this admission?: Yes (7) Anorexia Is this a current diagnosis for this admission?: Yes - Additional Information Resuscitation Status: Full Code Home Medications: Albuterol Sulfate [Proair HFA] 1 puff IH PRN PRN 10/08/14 Fluconazole [Diflucan] 100 mg PO DAILY 10/08/14 Prednisone [Deltasone 20 mg Tablet] 40 mg PO DAILY #0 tablet 03/13/15 Albuterol Sulfate [Proair HFA] 1 puff IH Q4HP PRN 05/23/16 Amlodipine Besylate [Norvasc 5 mg Tablet] 5 mg PO DAILY 05/23/16 Budesonide/Formoterol Fumarate [Symbicort HFA 160-4.5 mcg Inhaler 6 gm] 2 puff IH Q12 05/23/16 Clonazepam [Klonopin] 0.5 mg PO Q12 05/23/16 Clonidine HCl 0.1 mg PO Q12 05/23/16 Duloxetine HCl [Cymbalta] 60 mg PO BID 05/23/16 Ergocalciferol (Vitamin D2) [Drisdol 50,000 unit (1.25MG) Capsule] 50,000 unit PO [id number] 05/23/16 Levocetirizine Dihydrochloride [Xyzal 5 mg Tablet] 5 mg PO QHS 05/23/16 Omeprazole 40 mg PO DAILY 05/23/16 Oxycodone HCl/Acetaminophen [Percocet 10-325 mg Tablet] 1 tab PO Q6HP PRN Pravastatin Sodium [Pravachol] 40 mg PO QHS 05/23/16 Pregabalin [Lyrica 75 mg Capsule] 75 mg PO Q8 05/23/16 Tiotropium [place] [Spiriva Handihaler 5 Cap/Kit (18 Mcg/Cap)] 1 cap IH DAILY Valsartan [Diovan 160 mg Tablet] 160 mg PO Q12 05/23/16 Dronabinol [Marinol 2.5 mg Capsule] 5 mg PO Q12A #0 capsule 06/07/16 History of Present Illness Admission Date/PCP: 05/25/16 15:56 NATACHA ENGLAND MD History of Present Illness: HUNTER GRANADOS is a 71 year old female patient is well-known to me, she has history of multiple comorbid conditions including end-stage COPD, malignant neoplasm of the left lung, squamous cell type. She was recently referred to [facility] for [facility] radiation therapy. I believe she had the first treatment this week, she came to emergency room because of respiratory distress including coughing, shortness of breath, she was evaluated in emergency room, Chest x-ray was done, the chest x-ray showed mild pulmonary vascular congestion , there is no pleural effusion, no pneumothorax. The ABG on FiO2 of 3 L, pH 7.4 , PCO2 37, PO2 97.7, bicarbonate 22, she had previous multiple hospitalizations , the sputum culture is growing gram-negative rods. She will be admitted initially for observation and if condition does not improve this,We will transition to full inpatient care. Hospital Course Hospital Course: Patient with malignant neoplasm of the lung, she was admitted because of MRSA pneumonia and Proteus pneumonia she required IV vancomycin and ertapenem. Patient condition is very poor she has lost a lot weight because of poor intake , she was treated with Marinol to stimulate the appetite, she has underlying very severe chronic obstructive pulmonary disease. She was supposed to go to [facility] for PET scan for staging of her lung cancer but because of the acute illness this was postponed and canceled patient as extremely poor function in present condition she is not a good candidate for chemotherapy, surgery or radiation therapy. She was supposed to go to [facility] for [facility] radiation therapy but her condition continued to deteriorate with extreme muscle wasting. The plan is to transfer to the long term for rehabilitation and she will follow with [facility] and they will make arrangements for further line of care regarding the lung cancer Physical Exam Vital Signs: Temp Pulse Resp BP Pulse Ox 97.4 F 93 20 103/57 L 93 06/07/16 11:33 06/07/16 13:20 06/07/16 13:20 06/07/16 11:33 06/07/16 13:20 Intake & Output 06/06/16 06/07/16 06/08/16 06:59 06:59 06:59 Intake Total 1093 433 Balance 1093 433 Weight 58.9 kg 58.8 kg Results Laboratory Results: 06/06/16 05:39 06/06/16 05:39 06/02/16 06/02/16 06/02/16 14:53 14:53 16:05 Creatine Kinase Cancelled 37 CK-MB (CK-2) 0.37 Troponin I < 0.012 Impressions: Chest X-Ray 05/23/16 13:35 IMPRESSION: Mild pulmonary vascular prominence. No definite alveolar or interstitial edema Head MRI 06/01/16 00:00 IMPRESSION: 1. Limited study due to motion. No gross metastatic disease to the brain allowing for this. Chronic changes as above. Transfer Plan - Disposition Transfer Plan: She will be transferred to the long term for rehabilitation and the long term staff at [facility] Will arrange with the oncologist in [place] for patient to follow up in [facility] for the plan of care regarding malignant neoplasm of the lung.
[2016-06-07 15:36] VITALS: BP 119/70
[2016-06-07] MEDS: ATORVASTATIN CALCIUM 10 MG TABLET PO SCH (21:32)
[2016-06-07] MEDS: CETIRIZINE 5 MG TABLET PO SCH (21:33)
== END 2016-06-07 22:50 | DRG 178 ==
LOC: ER 13:07 → UNDOADMIN 15:36 → EH 15:36 → INTOOBSV 17:52 → 3W 22:05 → OBSVTOIN 05-25 15:56
PROVIDERS: ADMIT Internal Medicine; ATTEND Internal Medicine
PROC: 30233N1 Transfusion of Nonautologous Red Blood Cells into Peripheral Vein, Percutaneous Approach (ICD-10-PCS; principal; 2016-05-24)
DX: J15.212 Pneumonia due to Methicillin resistant Staphylococcus aureus (principal); C34.92 Malignant neoplasm of unspecified part of left bronchus or lung; J44.1 Chronic obstructive pulmonary disease with (acute) exacerbation; J96.11 Chronic respiratory failure with hypoxia; Z66 Do not resuscitate; J15.6 Pneumonia due to other Gram-negative bacteria; D63.0 Anemia in neoplastic disease; R63.0 Anorexia; Z74.2 Need for assistance at home and no other household member able to render care; Z99.81 Dependence on supplemental oxygen; Z88.0 Allergy status to penicillin; Z86.14 Personal history of Methicillin resistant Staphylococcus aureus infection; Z68.20 Body mass index [BMI] 20.0-20.9, adult
CPT/HCPCS: 36415; 36430; 36600; 70553; 71010; 80048; 80053; 80076; 80202; 80307; 81001; 82550; 82553; 82565; 82803; 82962; 83735; 84439; 84443; 84484; 85025; 86850; 86900; 86901; 86920; 87040; 87070; 87077; 87186; 87205; 93005; 93010; 94640; 94660; 96365; 99285; A9577; J1335; J1650; J1940; J1956; J3370; J3490; J7030; J7060; J7620; P9016; Q0167

== ENCOUNTER 2016-07-04 14:01 | Emergency (ER) | payer MEDICARE, MEDICAID ==
--- NOTE | 2016-07-04 15:24 | ER Document Report ---
ED Fall - General Chief Complaint: Fall Stated Complaint: FALL HIP PAIN Notes: The patient is a 71-year-old female, past medical history hypertension, COPD ( 3L O2 NC), presents from [facility] after she slipped out of her chair and landed on her sacrum and hit the back of her head. She did not have LOC and she is not on blood thinners. She was placed in a c-collar by EMS. She denies numbness, tingling, neck pain, chest pain, shortness of breath, abdominal pain, syncope, urinary symptoms or any other injuries. TRAVEL OUTSIDE OF THE [place] IN LAST 30 DAYS: No - Related data Allergies/Adverse Reactions: Penicillins Allergy (Verified 11/18/15 23:19) Hives Past Medical History - General Information source: Patient - Social History Smoking Status: Unknown if Ever Smoked Family History: None - Past Medical History Cardiac Medical History: Reports: Hx Hypercholesterolemia, Hx Hypertension Denies: Hx Coronary Artery Disease, Hx Heart Attack Pulmonary Medical History: Reports: Hx Asthma, Hx Bronchitis, Hx COPD, Hx Pneumonia Denies: Hx Tuberculosis Neurological Medical History: Denies: Hx Cerebrovascular Accident, Hx Seizures Malignancy Medical History: Reports: Hx Lung Cancer - Squamous cell lung cancer , stage I GI Medical History: Reports: Hx Gastroesophageal Reflux Disease Musculoskeltal Medical History: Reports Hx Arthritis - RA all over Psychiatric Medical History: Reports: Hx Anxiety, Hx Depression Infectious Medical History: Reports: Hx MRSA - History of MRSA pneumonia and history of gram-negative pneumonia Past Surgical History: Reports: Hx Abdominal Surgery - gastric bypass, sbo, Hx Appendectomy, Hx Cholecystectomy, Hx Hysterectomy, Hx Orthopedic Surgery - Immunizations Immunizations up to date: Yes Hx Diphtheria, Pertussis, Tetanus Vaccination: No Hx Pneumococcal Vaccination: 04/14/12 Review of Systems - Review of Systems Notes: REVIEW OF SYSTEMS: CONSTITUTIONAL: -fevers, -chills EENT: +posterior head pain, -eye pain, -difficulty swallowing, -nasal congestion CARDIOVASCULAR:-chest pain, -syncope. RESPIRATORY: -cough, -SOB GASTROINTESTINAL: -abdominal pain, -nausea, -vomiting, -diarrhea GENITOURINARY: -dysuria, -hematuria MUSCULOSKELETAL: +buttock pain, -back pain, -neck pain SKIN: -rash or skin lesions. HEMATOLOGIC: -easy bruising or bleeding. LYMPHATIC: -swollen, enlarged glands. NEUROLOGICAL: -altered mental status or loss of consciousness, +headache, - neurologic symptoms PSYCHIATRIC: -anxiety, -depression. ALL OTHER SYSTEMS REVIEWED AND NEGATIVE. Physical Exam - Vital signs Vitals: Temp Pulse Resp BP Pulse Ox 97.3 F 80 18 138/66 H 99 07/04/16 14:06 07/04/16 14:06 07/04/16 14:06 07/04/16 14:06 07/04/16 14:06 - Notes Notes: PHYSICAL EXAMINATION: GENERAL: Well-appearing, well-nourished and in no acute distress. HEAD: Atraumatic, normocephalic. EYES: Pupils equal round and reactive to light, extraocular movements intact, sclera anicteric, conjunctiva are normal. ENT: nares patent, oropharynx clear without exudates. Moist mucous membranes. NECK: No C-spine tenderness, Normal range of motion, supple without lymphadenopathy LUNGS: Breath sounds clear to auscultation bilaterally and equal. No wheezes rales or rhonchi. HEART: Regular rate and rhythm without murmurs ABDOMEN: Soft, nontender, normoactive bowel sounds. No guarding, no rebound. No masses appreciated. EXTREMITIES: Tenderness over sacrum, Normal range of motion, no pitting or edema. No cyanosis. NEUROLOGICAL: Cranial nerves grossly intact. Normal speech, normal gait. Normal sensory, motor, and reflex exams. PSYCH: Normal mood, normal affect. SKIN: Warm, Dry, normal turgor, no rashes or lesions noted. Course - Re-evaluation Re-evalutation: Patient did not have LOC and this was a mechanical event. C-spine is completely nontender and she has full range of motion. CT head, C-spine and x- ray of her sacrum are all negative. Provided her with anti-inflammatories for sacral contusion. Given return precautions and she understands. - Vital Signs Vital signs: Temp Pulse Resp BP Pulse Ox 97.3 F 80 18 138/66 H 99 07/04/16 14:06 07/04/16 14:06 07/04/16 14:06 07/04/16 14:06 07/04/16 14:06 - Diagnostic Test Radiology reviewed: Image reviewed, Reports reviewed Radiology results interpreted by me: C-spine and Head CT: NAD Sacral x-ray: NAD Discharge - Discharge Clinical Impression: Sacral contusion Qualifiers: Encounter type: initial encounter Qualified Code(s): S30.0XXA - Contusion of lower back and pelvis, initial encounter Condition: Good Disposition: SNF Additional Instructions: Contusion Your injury has resulted in a contusion -- a crushing of the deep tissues. No injury to important structures was detected during the physician's exam. Contusions vary in the amount of pain they cause, and in the length of time required for healing. Typically, the area will become bruised, and will remain painful to touch for two or three weeks. However, most patients are back to working and playing within a few days. After the initial period of rest and cold-packs, your symptoms (together with the doctor's recommendations) will determine how rapidly you can get back to full activity. Usually this means "do what feels okay, but don't do things that hurt." If re-examination was recommended, it's important to follow up as instructed. Call the doctor or return any time if pain increases, if swelling becomes severe, if you develop numbness or weakness in an injured extremity, or if any other alarming symptoms occur.
[2016-07-04] MEDS ORDERED: IBUPROFEN 600 MG TABLET PO ONE (15:33)
[2016-07-04 16:35] VITALS: BP 129/89
== END 2016-07-04 16:35 ==
LOC: ER 14:01
DX: S30.0XXA Contusion of lower back and pelvis, initial encounter (principal); W07.XXXA Fall from chair, initial encounter; Y92.129 Unspecified place in nursing home as the place of occurrence of the external cause; R51 Headache; I10 Essential (primary) hypertension; J44.9 Chronic obstructive pulmonary disease, unspecified; Z99.81 Dependence on supplemental oxygen; Z88.0 Allergy status to penicillin; Z86.73 Personal history of transient ischemic attack (TIA), and cerebral infarction without residual deficits; Z85.118 Personal history of other malignant neoplasm of bronchus and lung; Z86.14 Personal history of Methicillin resistant Staphylococcus aureus infection; Z98.84 Bariatric surgery status
CPT/HCPCS: 99285; 72220; 70450; 72125; A9270

== ENCOUNTER → 2016-08-04 | Outpatient (CLI) | payer MEDICARE, MEDICAID | LOC: RAD 14:29 | PROVIDERS: ATTEND Internal Medicine Medical Oncology | DX: C34.92 Malignant neoplasm of unspecified part of left bronchus or lung (principal) | CPT/HCPCS: 78815; A9552 ==

== ENCOUNTER 2016-08-18 14:06 | Inpatient (IN) | payer MEDICARE, MEDICAID ==
--- NOTE | 2016-08-18 14:38 | ER Document Report ---
ED General - General Time seen by provider: 14:40 Mode of Arrival: Medic Information source: Transfer Record, Emergency Med Personnel TRAVEL OUTSIDE OF THE [place] IN LAST 30 DAYS: No - HPI Onset: Just prior to arrival - Refer to HPI notes Similar symptoms previously: No Recently seen / treated by doctor: No <ESTRELLA DAMON - Last Filed: 08/18/16 20:02> <SHERRIE BLANCO - Last Filed: 08/18/16 21:41> - General Stated Complaint: ALTERED MENTAL STATUS Notes: Patient is a 71-year-old female presented to the emergency department for altered mental status. Patient resides at [facility] and staff state that she has been acting altered and not very responsive since lunch time. Patient is very somnolent but is on oxycodone. Patient was hypoxic on room air and was started on 4 L of oxygen. Patient's daughters state that yesterday the patient was having some shortness of breath and was feeling like she was getting sick again. Patient was given Tylenol last night and has a rectal temp of 99.9 F. Patient has a history of left-sided lung cancer, COPD, MRSA, and was diagnosed with pneumonia on 06/07/16. Patient's primary care physician is Dr. Stevens. Patient is allergic to penicillin. (ESTRELLA DAMON) - Related Data Allergies/Adverse Reactions: Penicillins Allergy (Verified 11/18/15 23:19) Hives Past Medical History - General Information source: Relative, Transfer Record, [facility] Records - Social History Smoking Status: Former Smoker Chew tobacco use (# tins/day): No Frequency of alcohol use: None Drug Abuse: None Family History: None - Past Medical History Cardiac Medical History: Reports: Hx Hypercholesterolemia, Hx Hypertension Pulmonary Medical History: Reports: Hx Asthma, Hx Bronchitis, Hx COPD, Hx Pneumonia - gram-negative and MRSA pneumonia Malignancy Medical History: Reports: Hx Lung Cancer - Squamous cell lung cancer , stage I GI Medical History: Reports: Hx Gastroesophageal Reflux Disease Musculoskeltal Medical History: Reports Hx Arthritis - RA all over Psychiatric Medical History: Reports: Hx Anxiety, Hx Depression Infectious Medical History: Reports: Hx MRSA - History of MRSA pneumonia Past Surgical History: Reports: Hx Abdominal Surgery - gastric bypass, sbo, Hx Appendectomy, Hx Cholecystectomy, Hx Hysterectomy, Hx Orthopedic Surgery - Immunizations Immunizations up to date: Yes Hx Diphtheria, Pertussis, Tetanus Vaccination: No Hx Pneumococcal Vaccination: 04/14/12 <ESTRELLA DAMON - Last Filed: 08/18/16 20:02> Review of Systems - Review of Systems Constitutional: No symptoms reported EENT: No symptoms reported Cardiovascular: No symptoms reported Respiratory: See HPI, Short of breath, Wheezing Gastrointestinal: No symptoms reported Genitourinary: No symptoms reported Female Genitourinary: No symptoms reported Musculoskeletal: No symptoms reported Skin: No symptoms reported Hematologic/Lymphatic: No symptoms reported Neurological/Psychological: See HPI -: Yes All other systems reviewed and negative <ESTRELLA DAMON - Last Filed: 08/18/16 20:02> Physical Exam <ESTRELLA DAMON - Last Filed: 08/18/16 20:02> <SHERRIE BLANCO - Last Filed: 08/18/16 21:41> - Vital signs Vitals: Resp 15 08/18/16 14:13 - Notes Notes: GENERAL: Somnolent, awakens to verbal stimuli, oriented to place. HEAD: Normocephalic, atraumatic. EYES: Pupils equal, round, and reactive to light. Extraocular movements intact. ENT: Nasal cannula in place. Oral mucosa moist, tongue midline. NECK: Full range of motion. Supple. Trachea midline. LUNGS: Expiratory wheezing, coarse rhonchi, hypoxic on room air at 88%, 96% on 4 L of O2. Coarse rattling with respirations. HEART: Regular rate and rhythm. No murmurs, gallops, or rubs. ABDOMEN: Soft, non-tender. Non-distended. Bowel sounds present in all 4 quadrants. EXTREMITIES: Moves all 4 extremities spontaneously. No edema, radial and dorsalis pedis pulses 2/4 bilaterally. No cyanosis. NEUROLOGICAL: Somnolent, oriented to place. Normal speech. SKIN: Warm, dry, normal turgor. No rashes or lesions noted. (ESTRELLA DAMON) Course - Laboratory Result Diagrams: 08/18/16 19:06 08/18/16 19:06 - Consults Dr. Kramer Time consulted: 15:43 Dr. Bailey Time consulted: 16:00 <ESTRELLA DAMON - Last Filed: 08/18/16 20:02> - Laboratory Result Diagrams: 08/18/16 19:06 08/18/16 19:06 <SHERRIE BLANCO - Last Filed: 08/18/16 21:41> - Re-evaluation Re-evalutation: 08/18/16 16:06 CBC shows leukocytosis of 15.6 and anemia with hemoglobin 8.9, platelets normal , patient is acidotic on the venous blood gas with pH of 7.21, PCO2 is elevated at 61.2 some of this may well be coming from her COPD, patient is on BiPAP for her respiratory distress and oxygen saturation has improved significantly, chemistries show acute renal failure with BUN of 82 and a creatinine of 2.97, potassium is 6.4, there are no EKG changes, patient has been started on IV fluids, calcium gluconate, insulin, bicarbonate and albuterol breathing treatments all of which well to decrease her potassium while addressing her breathing difficulty. Lactic acid is normal at 0.8, I do not have a source for infection at this time however I do suspect sepsis although the lactic acid is normal, patient has been empirically started on vancomycin and Levaquin due to her penicillin allergy. Patient was given Solu-Medrol as well as Solu-Cortef, patient has multiple reasons to be adrenally suppressed. Chest x-ray shows no pneumonia. Urine culture and blood cultures are pending. I discussed the patient with Dr. Bailey who is covering for Dr. Stevens who agrees to admit the patient to the intensive care unit. 08/18/16 21:40 Hypotension did respond nicely to fluid bolus, as the patient for IV access I did insert a left-sided EJ. (SHERRIE BLANCO) - Vital Signs Vital signs: Temp Pulse Resp BP Pulse Ox 99.0 F 94 18 104/66 97 08/18/16 20:29 08/18/16 19:00 08/18/16 20:15 08/18/16 20:15 08/18/16 20:15 - Laboratory Laboratory results interpreted by me: 08/18/16 08/18/16 08/18/16 14:20 15:40 15:40 WBC 15.6 H RBC 3.17 L Hgb 8.9 L Hct 27.6 L RDW 25.9 H Absolute Neutrophils 11.9 H VBG pH 7.21 L Potassium 6.4 H* BUN 82 H Creatinine 2.97 H Est GFR ( Amer) 19 L Est GFR (Non-Af Amer) 15 L Glucose 72 L Direct Bilirubin 0.5 H AST 50 H Alkaline Phosphatase 214 H Total Protein 6.1 L Albumin 3.2 L Urine Blood 08/18/16 16:45 WBC RBC Hgb Hct RDW Absolute Neutrophils VBG pH Potassium BUN Creatinine Est GFR ( Amer) Est GFR (Non-Af Amer) Glucose Direct Bilirubin AST Alkaline Phosphatase Total Protein Albumin Urine Blood SMALL H - EKG Interpretation by Me Additional EKG results interpreted by me: 08/18/16 16:06 EKG shows sinus rhythm at a rate of 95, left anterior hemiblock, no ST segment elevations or depressions, no T-wave inversions, EKG is unchanged from prior EKG on 06/02/2016 per my interpretation. (SHERRIE BLANCO) - Consults Dr. Kramer Reason for consultation: 08/18/16 15:[address] Kramer, nephrology, to discuss patient since she has a potassium of 6.4 and is in acute renal failure. (ESTRELLA DAMON) Dr. Bailey Reason for consultation: 08/18/16 16:00 Contacted who is on-call for Dr. Stevens; he will admit the patient. (ESTRELLA DAMON) Procedures - Additional Procedures IV insertion Time performed: 14:50 Additional Procedures: IV insertion <ESTRELLA DAMON - Last Filed: 08/18/16 20:02> <SHERRIE BLANCO - Last Filed: 08/18/16 21:41> - Additional Procedures IV insertion Notes: 08/18/16 14:50 Left external jugular IV was placed during exam by Dr. Blanco. (ESTRELLA DAMON) Critical Care Note - Critical Care Note Total time excluding time spent on procedures (mins): 55 <SHERRIE BLANCO - Last Filed: 08/18/16 21:41> Discharge <ESTRELLA DAMON - Last Filed: 08/18/16 20:02> - Discharge Admitting Provider: Lenore Unit Admitted: ICU <SHERRIE BLANCO - Last Filed: 08/18/16 21:41> - Discharge Clinical Impression: Acute and chronic respiratory failure with hypoxia, Acute kidney injury, Acute chronic obstructive pulmonary disease with respiratory distress, Dehydration Sepsis Qualifiers: Sepsis type: sepsis due to unspecified organism Qualified Code(s): A41.9 - Sepsis, unspecified organism Squamous cell lung cancer Qualifiers: Laterality: left Qualified Code(s): C34.92 - Malignant neoplasm of unspecified part of left bronchus or lung Anemia Qualifiers: Anemia type: unspecified type Qualified Code(s): D64.9 - Anemia, unspecified Condition: Critical Disposition: ADMITTED INPATIENT Scribe Attestation: 08/18/16 21:41 I personally performed the services described in the documentation, reviewed and edited the documentation which was dictated to the scribe in my presence, and it accurately records my words and actions. (SHERRIE BLANCO) Scribe Documentation - Scribe Written by Scribe:: Elia Naqvi, 08/18/16 17:02 acting as scribe for :: Francis <ESTRELLA DAMON - Last Filed: 08/18/16 20:02>
[2016-08-18] MEDS ORDERED: METHYLPREDNISOLONE INJ 125 MG/2 ML SDV IV ONE (14:39)
[2016-08-18] MEDS ORDERED: ALBUTEROL SULFATE 0.083% NEB 2.5 MG/3 ML AMPUL NEB ONE (14:40)
[2016-08-18] MEDS ORDERED: VANCOMYCIN HCL INJ 1000 MG VIAL IV ONE (14:40)
[2016-08-18] MEDS ORDERED: HYDROCORTISONE SOD SUCCINATE INJ/PF 100 MG/2 ML SDV IV ONE (14:40)
[2016-08-18] MEDS ORDERED: LEVOFLOXACIN 750 MG/D5W RTU 150 ML IV ONE (14:40)
[2016-08-18 15:37] LABS: ALANINE AMINOTRANSFERASE 49 U/L (9-52); ALBUMIN 3.2 g/dL (3.5-5.0); ALKALINE PHOSPHATASE 214 U/L (38-126); ANION GAP 16 (5-19); ASPARTATE AMINO TRANSFERASE 50 U/L (14-36); BILIRUBIN,DIRECT 0.5 mg/dL (0.0-0.4); BILIRUBIN,TOTAL 0.7 mg/dL (0.2-1.3); BLOOD UREA NITROGEN 82 mg/dL (7-20); CALCIUM 8.9 mg/dL (8.4-10.2); CARBON DIOXIDE 22 mmol/L (22-30); CHLORIDE 106 mmol/L (98-107); CREATININE RESULT 2.97 mg/dL (0.52-1.25); GLUCOSE 72 mg/dL (75-110); SODIUM 143.5 mmol/L (137-145); TOTAL PROTEIN 6.1 g/dL (6.3-8.2)
[2016-08-18] MEDS ORDERED: NORMAL SALINE 1000 ML 1,000 ML IV ONE ×2 (15:38→16:08)
[2016-08-18 15:40] LABS: POTASSIUM 6.4 mmol/L (3.6-5.0)
[2016-08-18] MEDS ORDERED: DEXTROSE 50%-WATER 25 GM/50 ML DISP.SYRIN IV ONE (15:40)
[2016-08-18] MEDS ORDERED: CALCIUM GLUCONATE 1000 MG/10 ML INJ IV ONE (15:40)
[2016-08-18] MEDS ORDERED: DEXTROSE 5%-WATER 1000 ML 1,000 ML with SODIUM BICARBONATE 150 MEQ IV PRN ×2 (15:40)
[2016-08-18] MEDS ORDERED: INSULIN REG, HUMAN 100 UNIT/ML 3 ML VIAL (PYX) SUBCUT ONE (15:40)
[2016-08-18 15:51] LABS: VENOUS BLOOD BASE EXCESS -4.6 mmol/L; VENOUS BLOOD HCO3 23.8 mmol/L (20-32); VENOUS BLOOD PCO2 61.2 mmHg (35-63); VENOUS BLOOD PH 7.21 (7.30-7.42)
[2016-08-18 15:52] LABS: ABSOLUTE BASOPHILS # (AUTO) 0.1 10^3/uL (0.0-0.2); ABSOLUTE EOSINOPHILS # (AUTO) 0.2 10^3/uL (0.0-0.6); ABSOLUTE LYMPHOCYTES (AUTO) 2.3 10^3/uL (0.5-4.7); ABSOLUTE MONOCYTES (AUTO) 1.2 10^3/uL (0.1-1.4); ABSOLUTE NEUT (AUTO) 11.9 10^3/uL (1.7-8.2); BASOPHILS % (AUTO) 0.6 % (0-2); EOSINOPHILS % (AUTO) 1.1 % (0-6); HEMATOCRIT 27.6 % (36.0-47.0); HEMOGLOBIN 8.9 g/dL (12.0-15.5); HGB HCT DIFFERENCE -0.9; LYMPHOCYTES % (AUTO) 14.8 % (13-45); MEAN CORPUSCULAR HGB CONC 32.2 g/dL (32.0-36.0); MONOCYTES % (AUTO) 7.6 % (3-13); RED BLOOD COUNT 3.17 10^6/uL (3.72-5.28); RED CELL DISTRIBUTION WIDTH 25.9 % (11.5-14.0); SEGMENTED NEUTROPHILS % (AUTO) 75.9 % (42-78); WHITE BLOOD COUNT 15.6 10^3/uL (4.0-10.5)
[2016-08-18 15:54] LABS: ANISOCYTOSIS 2+; HYPOCHROMASIA SLIGHT; OVALOCYTES SLIGHT; POIKILOCYTOSIS SLIGHT; TARGET CELLS SLIGHT
[2016-08-18 15:55] LABS: MEAN CORPUSCULAR VOLUME 87 fl (80-97)
[2016-08-18 16:06] LABS: PROTHROMBIN TIME 14.2 SEC (11.4-15.4)
--- NOTE | 2016-08-18 16:20 | EKG REPORT ---
SEVERITY:- ABNORMAL ECG - SINUS RHYTHM LEFT ANTERIOR FASCICULAR BLOCK NONSPECIFIC T ABNORMALITIES, LATERAL LEADS : Confirmed by: Michael Olivier MD 18-Aug-2016 16:19:30
[2016-08-18 17:05] LABS: APPEARANCE,URINE SLIGHTLY-CLOUDY; BILIRUBIN,URINE NEGATIVE (NEGATIVE); GLUCOSE, URINE NEGATIVE (NEGATIVE); KETONES,URINE NEGATIVE (NEGATIVE); LEUKOCYTE ESTERASE,URINE NEGATIVE (NEGATIVE); NITRITE,URINE NEGATIVE (NEGATIVE); PROTEIN,URINE NEGATIVE (NEGATIVE); URINE SPECIFIC GRAVITY 1.012; UROBILINOGEN,URINE NEGATIVE mg/dL (<2.0)
--- NOTE | 2016-08-18 17:20 | PDOC H&P ---
History of Present Illness Admission Date/PCP: 08/18/16 16:37 NATACHA ENGLAND MD Patient complains of: Altered mental status, Difficulty with breathing History of Present Illness: HUNTER GRANADOS is a 71 year old female of Dr England resident at [facility] who was brought to the ED by EMS due to change in mental status that became more noticeable about lunch time. There was reported associated hypoxemia but patient has been supplemental oxygen dependent due to her end stage COPD and lung cancer. There was reported episode of fever at the [facility] by daughter who was present at bedside at the time of my evaluation. Patient had temperature as high as 100.1F and a dose of Acetaminophen last night with rectal temperature reading about 99.9F as per daughter's account. No reported episode of nausea, vomiting, productive coughing or chest pain. She was recently treated for pneumonia. Her initial evaluation in the ED was suggestive of significant hypoxemia with hypercapnia, respiratory acidosis and hyperkalemnia. Her laboratory evaluation did revealed renal indices suggestive of acute renal injury with BUN at 82 and serum creatinine at 2.97. She did received protocol treatment for hyperkalemia and started on BiPAP support with supplemental oxygen for respiratory acidosis and hypoxemia management. In view of her presentation with associated leukocytosis there was concern for possible occult infectious process. She was started on IV Vancomycin and Levofloxacin therapy. She will be admitted to ICU for further evaluation and management. Past Medical History Cardiac Medical History: Reports: Hyperlipidema, Hypertension Denies: Coronary Artery Disease, Myocardial Infarction Pulmonary Medical History: Reports: Asthma, Bronchitis, Chronic Obstructive Pulmonary Disease (COPD), Pneumonia Denies: Tuberculosis Neurological Medical History: Denies: Seizures Malignancy Medical History: Reports: Lung Cancer - Squamous cell lung cancer, stage I GI Medical History: Reports: Gastroesophageal Reflux Disease Musculoskeltal Medical History: Reports: Arthritis - RA all over Psychiatric Medical History: Reports: Depression Hematology: Reports: Anemia Infectious Medical History: Reports: 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 and history of gram-negative pneumonia Past Surgical History Past Surgical History: Reports: Appendectomy, Cholecystectomy, Hysterectomy, Orthopedic Surgery Social History Smoking Status: Never Smoker Frequency of Alcohol Use: None Hx Recreational Drug Use: No Drugs: None Hx Prescription Drug Abuse: No - Advance Directive Resuscitation Status: Full Code - I discussed code status with daughter at bedside and presently she will be a full code. Family History Family History: None Parental Family History Reviewed: Yes Children Family History Reviewed: Yes Sibling(s) Family History Reviewed.: Yes Medication/Allergy Home Medications: Albuterol Sulfate [Proair HFA] 1 puff IH PRN PRN 10/08/14 Fluconazole [Diflucan] 100 mg PO DAILY 10/08/14 Prednisone [Deltasone 20 mg Tablet] 40 mg PO DAILY #0 tablet 03/13/15 Albuterol Sulfate [Proair HFA] 1 puff IH Q4HP PRN 05/23/16 Amlodipine Besylate [Norvasc 5 mg Tablet] 5 mg PO DAILY 05/23/16 Budesonide/Formoterol Fumarate [Symbicort HFA 160-4.5 mcg Inhaler 6 gm] 2 puff IH Q12 05/23/16 Clonazepam [Klonopin] 0.5 mg PO Q12 05/23/16 Clonidine HCl 0.1 mg PO Q12 05/23/16 Duloxetine HCl [Cymbalta] 60 mg PO BID 05/23/16 Ergocalciferol (Vitamin D2) [Drisdol 50,000 unit (1.25MG) Capsule] 50,000 unit PO [id number] 05/23/16 Levocetirizine Dihydrochloride [Xyzal 5 mg Tablet] 5 mg PO QHS 05/23/16 Omeprazole 40 mg PO DAILY 05/23/16 Oxycodone HCl/Acetaminophen [Percocet 10-325 mg Tablet] 1 tab PO Q6HP PRN Pravastatin Sodium [Pravachol] 40 mg PO QHS 05/23/16 Pregabalin [Lyrica 75 mg Capsule] 75 mg PO Q8 05/23/16 Tiotropium Jackson [Spiriva Handihaler 5 Cap/Kit (18 Mcg/Cap)] 1 cap IH DAILY Valsartan [Diovan 160 mg Tablet] 160 mg PO Q12 05/23/16 Dronabinol [Marinol 2.5 mg Capsule] 5 mg PO Q12A #0 capsule 06/07/16 Allergies/Adverse Reactions: Penicillins Allergy (Verified 11/18/15 23:19) Hives Review of Systems ROS unobtainable: Due to mental status Physical Exam Vital Signs: Temp Pulse Resp BP Pulse Ox 13 105/56 L 95 08/18/16 16:31 08/18/16 16:31 08/18/16 16:31 General appearance: PRESENT: severe distress - remain on BiPAP support Head exam: PRESENT: atraumatic, normocephalic Eye exam: PRESENT: conjunctiva pink, EOMI, PERRLA. ABSENT: scleral icterus Ear exam: PRESENT: normal external ear exam Mouth exam: PRESENT: moist, tongue midline Neck exam: PRESENT: full ROM. ABSENT: carotid bruit, JVD, lymphadenopathy, thyromegaly Respiratory exam: PRESENT: accessory muscle use, crackles, decreased breath sounds, prolonged expiratory phas, rhonchi, wheezes Cardiovascular exam: PRESENT: RRR. ABSENT: diastolic murmur, rubs, systolic murmur Pulses: PRESENT: normal dorsalis pedis pul, +2 pedal pulses bilateral Vascular exam: PRESENT: normal capillary refill GI/Abdominal exam: PRESENT: normal bowel sounds, soft. ABSENT: distended, guarding, mass, organolmegaly, rebound, tenderness Rectal exam: PRESENT: deferred Extremities exam: ABSENT: joint swelling, pedal edema Musculoskeletal exam: PRESENT: deformity - related to multiple joint involvement with arthritis Neurological exam: PRESENT: altered - probable due to hypercapnia or opiod usage. Skin exam: PRESENT: dry, intact, warm. ABSENT: cyanosis, rash Results Laboratory Results: I reviewed on [place] and form a significant component of my medical decision making. Impressions: Chest X-Ray 08/18/16 14:13 IMPRESSION: NO ACUTE RADIOGRAPHIC FINDING IN THE CHEST. NO SIGNIFICANT CHANGE FROM PRIOR IMAGING INCLUDING LEFT LOWER LOBE NODULE. Assessment & Plan - Diagnosis (1) Probable sepsis Is this a current diagnosis for this admission?: YesPlan: See covering attending physician orders. (2) Acute and chronic respiratory failure with hypoxia Is this a current diagnosis for this admission?: YesPlan: See covering attending physician orders. (3) Acute chronic obstructive pulmonary disease with respiratory distress Is this a current diagnosis for this admission?: YesPlan: See covering attending physician orders. (4) Acute kidney injury Is this a current diagnosis for this admission?: YesPlan: See covering attending physician orders. (5) Anemia of chronic disease Is this a current diagnosis for this admission?: YesPlan: See covering attending physician orders. (6) End stage chronic obstructive pulmonary disease Is this a current diagnosis for this admission?: YesPlan: See covering attending physician orders. 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 - Time Time Spent: 50 to 70 Minutes Critical Time spent with patient: 15-24 minutes Medications reviewed and adjusted accordingly: Yes Anticipated discharge: SNF Within: Other - Inpatient Certification Post Hospital Care: D/C or Transfer Summary - Plan Summary Plan Summary: See covering attending physician orders.
[2016-08-18] MEDS ORDERED: DEXTROSE 50%-WATER 25 GM/50 ML DISP.SYRIN IV PRN ×2 (17:23)
[2016-08-18] MEDS ORDERED: GLUCAGON,HUMAN RECOMB 1 MG INJ SUBCUT PRN (17:23)
[2016-08-18] MEDS ORDERED: DEXTROSE 40% GEL 15 GM TUBE PO PRN ×2 (17:23)
[2016-08-18] MEDS ORDERED: VANCOMYCIN HCL 0 MG in DEXTROSE 5%-WATER 250 ML IV NR (17:30)
[2016-08-18] MEDS ORDERED: ACETAMINOPHEN 650 MG SUPP.RECT PR PRN (17:35)
[2016-08-18] MEDS: NORMAL SALINE 1000 ML 1,000 ML IV PRN ×2 (18:42→23:43)
[2016-08-18] MEDS ORDERED: NORMAL SALINE 500 ML IV PRN (19:04)
[2016-08-18 19:28] LABS: PROTHROMBIN TIME 15.5 SEC (11.4-15.4)
[2016-08-18 19:37] LABS: MEAN CORPUSCULAR HEMOGLOBIN 27.7 pg (27.0-33.4); MEAN CORPUSCULAR HGB CONC 31.9 g/dL (32.0-36.0); MEAN CORPUSCULAR VOLUME 87 fl (80-97); RED BLOOD COUNT 2.88 10^6/uL (3.72-5.28); RED CELL DISTRIBUTION WIDTH 24.9 % (11.5-14.0); WHITE BLOOD COUNT 13.6 10^3/uL (4.0-10.5)
[2016-08-18 19:41] LABS: CREATINE KINASE 490 U/L (30-135); CREATININE RESULT 2.46 mg/dL (0.52-1.25)
[2016-08-18 19:54] LABS: CREATINE KINASE MB 7.77 ng/mL (<4.55); TROPONIN I < 0.012 ng/mL
[2016-08-18] MEDS: METHYLPREDNISOLONE INJ 125 MG/2 ML SDV IV SCH (21:38)
[2016-08-18] MEDS: PANTOPRAZOLE SODIUM 40 MG VIAL IV SCH (21:38)
[2016-08-19 06:19] LABS: ABSOLUTE LYMPHOCYTES (AUTO) 0.8 10^3/uL (0.5-4.7); ABSOLUTE MONOCYTES (AUTO) 0.1 10^3/uL (0.1-1.4); BASOPHILS % (AUTO) 0.1 % (0-2); HEMOGLOBIN 8.1 g/dL (12.0-15.5); HGB HCT DIFFERENCE -0.7; LYMPHOCYTES % (AUTO) 6.3 % (13-45); MEAN CORPUSCULAR HEMOGLOBIN 27.6 pg (27.0-33.4); MEAN CORPUSCULAR HGB CONC 32.3 g/dL (32.0-36.0); MEAN CORPUSCULAR VOLUME 85 fl (80-97); MONOCYTES % (AUTO) 1.1 % (3-13); RED BLOOD COUNT 2.92 10^6/uL (3.72-5.28); RED CELL DISTRIBUTION WIDTH 23.9 % (11.5-14.0); SEGMENTED NEUTROPHILS % (AUTO) 92.5 % (42-78)
[2016-08-19] MEDS: METHYLPREDNISOLONE INJ 125 MG/2 ML SDV IV SCH ×3 (06:25→21:33)
[2016-08-19 06:39] LABS: ALANINE AMINOTRANSFERASE 39 U/L (9-52); ALBUMIN 2.8 g/dL (3.5-5.0); ALKALINE PHOSPHATASE 188 U/L (38-126); ANION GAP 12 (5-19); ASPARTATE AMINO TRANSFERASE 39 U/L (14-36); BILIRUBIN,DIRECT 0.3 mg/dL (0.0-0.4); BILIRUBIN,TOTAL 0.3 mg/dL (0.2-1.3); CALCIUM 8.1 mg/dL (8.4-10.2); CARBON DIOXIDE 19 mmol/L (22-30); CHLORIDE 116 mmol/L (98-107); CREATININE RESULT 1.84 mg/dL (0.52-1.25); GLUCOSE 155 mg/dL (75-110); SODIUM 147.3 mmol/L (137-145); TOTAL PROTEIN 5.5 g/dL (6.3-8.2)
[2016-08-19 06:52] LABS: BLOOD UREA NITROGEN 60 mg/dL (7-20)
[2016-08-19 06:53] LABS: POTASSIUM 4.7 mmol/L (3.6-5.0)
[2016-08-19] MEDS ORDERED: ACETAMINOPHEN 650 MG SUPP.RECT PR PRN (07:55)
[2016-08-19] MEDS ORDERED: ENOXAPARIN SODIUM INJ 40 MG/0.4 ML DISP.SYRIN SUBCUT SCH (08:00)
[2016-08-19] MEDS: ENOXAPARIN SODIUM INJ 30 MG/0.3 ML DISP.SYRIN SUBCUT SCH (09:03)
[2016-08-19] MEDS: PANTOPRAZOLE SODIUM 40 MG VIAL IV SCH (09:34)
[2016-08-19] MEDS: VANCOMYCIN HCL 750 MG in DEXTROSE 5%-WATER 250 ML IV SCH (11:33)
[2016-08-19] MEDS: NORMAL SALINE 1000 ML 1,000 ML IV PRN ×2 (11:37→23:46)
[2016-08-19] MEDS: IPRATROPIUM/ALBUTEROL 0.5-2.5 MG/3 ML AMPUL NEB PRN ×2 (13:58→20:28)
[2016-08-19] MEDS ORDERED: LANSOPRAZOLE 30 MG TAB.RAP.DR PO ONE (14:00)
[2016-08-19] MEDS ORDERED: TIOTROPIUM BROMIDE DPI 5 CAP/KIT (18 MCG/CAP) IH ONE (14:00)
[2016-08-19] MEDS ORDERED: BUDESONIDE/FORMOTEROL 160-4.5 MCG 60 PUFF/6 GM MDI IH ONE (14:00)
[2016-08-19] MEDS ORDERED: OXYCODONE HCL IR 5 MG TABLET PO PRN (14:09)
[2016-08-19] MEDS ORDERED: OXYCODONE-ACETAMINOPHEN 5-325 MG TABLET PO PRN (14:15)
[2016-08-19] MEDS ORDERED: CITALOPRAM HYDROBROMIDE 20 MG TABLET PO ONE (15:00)
[2016-08-19] MEDS ORDERED: LOSARTAN POTASSIUM 50 MG TABLET PO ONE (15:00)
[2016-08-19] MEDS ORDERED: AMLODIPINE BESYLATE 5 MG TABLET PO ONE (15:00)
[2016-08-19] MEDS: PREGABALIN 75 MG CAPSULE PO SCH ×2 (15:14→21:32)
[2016-08-19] MEDS: OXYCODONE HCL IR 5 MG TABLET PO PRN ×2 (15:15→21:30)
[2016-08-19] MEDS: OXYCODONE-ACETAMINOPHEN 5-325 MG TABLET PO PRN ×2 (15:16→21:31)
[2016-08-19] MEDS ORDERED: LEVOFLOXACIN 250 MG/D5W RTU 250 MG/50 ML RTUPB IV SCH (18:00)
--- NOTE | 2016-08-19 19:19 | PDOC PROGRESS REPORT ---
Subjective Progress Note for:: 08/19/16 Subjective:: She was admitted over the weekend when she presented with sepsis/septicemia, she has a history of very severe COPD, squamous cell lung cancer that is not being treated at this time, she was seen by the bedside, she is presently on IV antibiotic, she will continue same medication, will continue to follow very closely, CT chest will be ordered tomorrow Physical Exam Vital Signs: Temp Pulse Resp BP Pulse Ox 98.6 F 107 H 24 H 138/71 H 98 08/19/16 16:52 08/19/16 16:52 08/19/16 16:52 08/19/16 16:52 08/19/16 16:52 Intake & Output 08/18/16 08/19/16 08/20/16 06:59 06:59 06:59 Intake Total 4702 869 Output Total 1425 600 Balance 3277 269 Weight 74 kg 68.9 kg General appearance: PRESENT: mild distress Eye exam: PRESENT: PERRLA Respiratory exam: PRESENT: wheezes Cardiovascular exam: PRESENT: +S1, +S2 GI/Abdominal exam: PRESENT: soft Neurological exam: PRESENT: alert Results Laboratory Results: 08/19/16 06:01 08/19/16 06:01 08/18/16 08/18/16 08/19/16 19:06 19:06 06:01 WBC 13.6 H 13.0 H RBC 2.88 L 2.92 L Hgb 8.0 L 8.1 L Hct 25.0 L 25.0 L MCV 87 85 MCH 27.7 27.6 MCHC 31.9 L 32.3 RDW 24.9 H 23.9 H Plt Count 290 294 Seg Neutrophils % 92.5 H Lymphocytes % 6.3 L Monocytes % 1.1 L Eosinophils % 0.0 Basophils % 0.1 Absolute Neutrophils 12.0 H Absolute Lymphocytes 0.8 Absolute Monocytes 0.1 Absolute Eosinophils 0.0 Absolute Basophils 0.0 Sodium Potassium Chloride Carbon Dioxide Anion Gap BUN Creatinine 2.46 H Est GFR ( Amer) 23 L Est GFR (Non-Af Amer) 19 L Glucose Calcium Total Bilirubin AST ALT Alkaline Phosphatase Total Protein Albumin 08/19/16 06:01 WBC RBC Hgb Hct MCV MCH MCHC RDW Plt Count Seg Neutrophils % Lymphocytes % Monocytes % Eosinophils % Basophils % Absolute Neutrophils Absolute Lymphocytes Absolute Monocytes Absolute Eosinophils Absolute Basophils Sodium 147.3 H Potassium 4.7 D Chloride 116 H Carbon Dioxide 19 L Anion Gap 12 BUN 60 H D Creatinine 1.84 H Est GFR ( Amer) 33 L Est GFR (Non-Af Amer) 27 L Glucose 155 H Calcium 8.1 L Total Bilirubin 0.3 AST 39 H ALT 39 Alkaline Phosphatase 188 H Total Protein 5.5 L Albumin 2.8 L 08/18/16 08/18/16 19:06 19:06 Creatine Kinase 490 H CK-MB (CK-2) 7.77 H Troponin I < 0.012 Impressions: Chest X-Ray 08/18/16 14:13 IMPRESSION: NO ACUTE RADIOGRAPHIC FINDING IN THE CHEST. NO SIGNIFICANT CHANGE FROM PRIOR IMAGING INCLUDING LEFT LOWER LOBE NODULE. Assessment & Plan - Diagnosis (1) Septicemia Is this a current diagnosis for this admission?: Yes (2) Squamous cell carcinoma of lung, stage I Qualifiers: Laterality: left Qualified Code(s): C34.90 - Malignant neoplasm of unspecified part of unspecified bronchus or lung Is this a current diagnosis for this admission?: Yes (3) Pneumonia Qualifiers: Pneumonia type: due to unspecified organism Laterality: right Lung location: middle lobe of lung Qualified Code(s): J18.9 - Pneumonia, unspecified organism Is this a current diagnosis for this admission?: Yes (4) Very severe chronic obstructive pulmonary disease Is this a current diagnosis for this admission?: Yes (5) GERD (gastroesophageal reflux disease) Qualifiers: Esophagitis presence: with esophagitis Qualified Code(s): K21.0 - Gastro-esophageal reflux disease with esophagitis Is this a current diagnosis for this admission?: Yes - Plan Summary Plan Summary: She will continue present IV antibiotic
[2016-08-19] MEDS: ATORVASTATIN CALCIUM 10 MG TABLET PO SCH (21:30)
[2016-08-19] MEDS: CLONAZEPAM 1 MG TABLET PO SCH (21:31)
[2016-08-19] MEDS: MIRTAZAPINE 15 MG TABLET PO SCH (21:32)
[2016-08-19] MEDS: CETIRIZINE 5 MG TABLET PO SCH (21:33)
[2016-08-19] MEDS: BUDESONIDE/FORMOTEROL 160-4.5 MCG 60 PUFF/6 GM MDI IH SCH (21:33)
[2016-08-19] MEDS: CLONIDINE HCL 0.1 MG TABLET PO SCH (21:34)
[2016-08-19] MEDS ORDERED: (PENDING PHARMACY ID) (Clonazepam [Klonopin] 0.5 MG) PO SCH (22:00)
[2016-08-19] MEDS ORDERED: (PENDING PHARMACY ID) (Levocetirizine Dihydrochloride [Xyzal 5 Mg Tablet] 5 MG) PO SCH (22:00)
[2016-08-20] MEDS: PREGABALIN 75 MG CAPSULE PO SCH ×3 (06:08→21:04)
[2016-08-20] MEDS: METHYLPREDNISOLONE INJ 125 MG/2 ML SDV IV SCH ×3 (06:09→21:05)
[2016-08-20] MEDS: LANSOPRAZOLE 30 MG TAB.RAP.DR PO SCH (06:09)
[2016-08-20] MEDS: NORMAL SALINE 1000 ML 1,000 ML IV PRN (06:09)
[2016-08-20] MEDS: OXYCODONE HCL IR 5 MG TABLET PO PRN ×2 (07:24→18:47)
[2016-08-20] MEDS: OXYCODONE-ACETAMINOPHEN 5-325 MG TABLET PO PRN ×2 (07:25→20:12)
[2016-08-20] MEDS: ALBUTEROL SULFATE HFA (90 MCG/PUFF) 200 PUFF/8.5 GM MDI IH PRN ×2 (08:13→18:46)
[2016-08-20] MEDS: ENOXAPARIN SODIUM INJ 30 MG/0.3 ML DISP.SYRIN SUBCUT SCH (08:17)
[2016-08-20] MEDS: IPRATROPIUM/ALBUTEROL 0.5-2.5 MG/3 ML AMPUL NEB PRN ×3 (08:46→18:52)
[2016-08-20] MEDS: CLONIDINE HCL 0.1 MG TABLET PO SCH ×2 (09:11→21:04)
[2016-08-20] MEDS: AMLODIPINE BESYLATE 5 MG TABLET PO SCH (09:12)
[2016-08-20] MEDS: CITALOPRAM HYDROBROMIDE 20 MG TABLET PO SCH (09:13)
[2016-08-20] MEDS: LOSARTAN POTASSIUM 50 MG TABLET PO SCH (09:13)
[2016-08-20] MEDS: CLONAZEPAM 1 MG TABLET PO SCH ×2 (09:14→21:05)
[2016-08-20] MEDS: VANCOMYCIN HCL 750 MG in DEXTROSE 5%-WATER 250 ML IV SCH (09:14)
[2016-08-20] MEDS: BUDESONIDE/FORMOTEROL 160-4.5 MCG 60 PUFF/6 GM MDI IH SCH ×2 (09:16→21:05)
[2016-08-20] MEDS: TIOTROPIUM BROMIDE DPI 5 CAP/KIT (18 MCG/CAP) IH SCH (09:16)
[2016-08-20] MEDS: LEVOFLOXACIN 750 MG/D5W RTU 750 MG/150 ML RTUPB IV SCH (17:09)
--- NOTE | 2016-08-20 18:56 | PDOC PROGRESS REPORT ---
Subjective Progress Note for:: 08/20/16 Subjective:: Patient was seen by the bedside, she is having difficulty breathing, she is requesting noninvasive positive pressure ventilation, BiPAP. The blood culture is growing gram-negative rods, sputum culture is growing gram-negative rods with cocci. On the last admission she was DO NOT RESUSCITATE status. We may have to reinstate the DO NOT RESUSCITATE status on this admission, CT chest is ordered to further define the lesion, she is known to have lung cancer presently not on any treatment modality. Physical Exam Vital Signs: Temp Pulse Resp BP Pulse Ox 97.7 F 89 16 99/50 L 96 08/20/16 16:14 08/20/16 16:14 08/20/16 16:14 08/20/16 16:14 08/20/16 16:14 Intake & Output 08/19/16 08/20/16 08/21/16 06:59 06:59 06:59 Intake Total 4702 2219 1118 Output Total 1425 1200 500 Balance 3277 1019 618 Weight 74 kg 78.6 kg General appearance: PRESENT: severe distress Eye exam: PRESENT: PERRLA Respiratory exam: PRESENT: wheezes Cardiovascular exam: PRESENT: +S1, +S2 GI/Abdominal exam: PRESENT: soft Neurological exam: PRESENT: alert Results Laboratory Results: 08/19/16 06:01 08/19/16 06:01 08/18/16 21:50 Nasophary (Mrsa Only) MRSA Surveillance Culture - Final MRSA RECOVERED 08/18/16 08/18/16 19:06 19:06 Creatine Kinase 490 H CK-MB (CK-2) 7.77 H Troponin I < 0.012 Impressions: Chest X-Ray 08/18/16 14:13 IMPRESSION: NO ACUTE RADIOGRAPHIC FINDING IN THE CHEST. NO SIGNIFICANT CHANGE FROM PRIOR IMAGING INCLUDING LEFT LOWER LOBE NODULE. Assessment & Plan - Diagnosis (1) Septicemia Is this a current diagnosis for this admission?: YesPlan: Continue IV antibiotic (2) Squamous cell carcinoma of lung, stage I Qualifiers: Laterality: left Qualified Code(s): C34.92 - Malignant neoplasm of unspecified part of left bronchus or lung Is this a current diagnosis for this admission?: Yes (3) Pneumonia Qualifiers: Pneumonia type: due to unspecified organism Laterality: right Lung location: middle lobe of lung Qualified Code(s): J18.1 - Lobar pneumonia , unspecified organism Is this a current diagnosis for this admission?: Yes (4) Very severe chronic obstructive pulmonary disease Is this a current diagnosis for this admission?: YesPlan: She requires BiPAP (5) GERD (gastroesophageal reflux disease) Qualifiers: Esophagitis presence: with esophagitis Qualified Code(s): K21.0 - Gastro-esophageal reflux disease with esophagitis Is this a current diagnosis for this admission?: Yes
[2016-08-20 21:03] LABS: HEMATOCRIT 29.2 % (36.0-47.0); HEMOGLOBIN 9.2 g/dL (12.0-15.5); HGB HCT DIFFERENCE -1.6; MEAN CORPUSCULAR HEMOGLOBIN 27.1 pg (27.0-33.4); MEAN CORPUSCULAR HGB CONC 31.4 g/dL (32.0-36.0); MEAN CORPUSCULAR VOLUME 86 fl (80-97); RED BLOOD COUNT 3.38 10^6/uL (3.72-5.28); RED CELL DISTRIBUTION WIDTH 24.3 % (11.5-14.0); WHITE BLOOD COUNT 24.1 10^3/uL (4.0-10.5)
[2016-08-20] MEDS: ATORVASTATIN CALCIUM 10 MG TABLET PO SCH (21:04)
[2016-08-20] MEDS: CETIRIZINE 5 MG TABLET PO SCH (21:04)
[2016-08-20] MEDS: MIRTAZAPINE 15 MG TABLET PO SCH (21:05)
[2016-08-20 21:15] LABS: ALANINE AMINOTRANSFERASE 42 U/L (9-52); ALBUMIN 3.6 g/dL (3.5-5.0); ALKALINE PHOSPHATASE 171 U/L (38-126); ANION GAP 12 (5-19); ASPARTATE AMINO TRANSFERASE 32 U/L (14-36); BILIRUBIN,DIRECT 0.4 mg/dL (0.0-0.4); BILIRUBIN,TOTAL 0.4 mg/dL (0.2-1.3); BLOOD UREA NITROGEN 60 mg/dL (7-20); CALCIUM 8.4 mg/dL (8.4-10.2); CARBON DIOXIDE 20 mmol/L (22-30); CHLORIDE 114 mmol/L (98-107); CREATININE RESULT 1.53 mg/dL (0.52-1.25); GLUCOSE 193 mg/dL (75-110); POTASSIUM 4.5 mmol/L (3.6-5.0); SODIUM 146.3 mmol/L (137-145); TOTAL PROTEIN 6.9 g/dL (6.3-8.2)
[2016-08-20 21:27] LABS: BASOPHILS % (MANUAL) 0 % (0-2); EOSINOPHILS % (MANUAL) 0 % (0-6); LYMPHOCYTES % (MANUAL) 2 % (13-45); TOTAL CELLS COUNTED 100
[2016-08-20 21:28] LABS: ANISOCYTOSIS 2+; OVALOCYTES SLIGHT; POIKILOCYTOSIS 1+; TOXIC GRANULATION SLIGHT
[2016-08-21] MEDS: IPRATROPIUM/ALBUTEROL 0.5-2.5 MG/3 ML AMPUL NEB PRN ×3 (00:16→21:12)
[2016-08-21 06:14] LABS: HEMATOCRIT 24.8 % (36.0-47.0); HGB HCT DIFFERENCE -0.8; MEAN CORPUSCULAR HEMOGLOBIN 27.9 pg (27.0-33.4); MEAN CORPUSCULAR HGB CONC 32.1 g/dL (32.0-36.0); MEAN CORPUSCULAR VOLUME 87 fl (80-97); RED BLOOD COUNT 2.85 10^6/uL (3.72-5.28); WHITE BLOOD COUNT 15.4 10^3/uL (4.0-10.5)
[2016-08-21] MEDS: PREGABALIN 75 MG CAPSULE PO SCH ×3 (06:26→21:06)
[2016-08-21] MEDS: LANSOPRAZOLE 30 MG TAB.RAP.DR PO SCH (06:26)
[2016-08-21] MEDS: METHYLPREDNISOLONE INJ 125 MG/2 ML SDV IV SCH ×3 (06:27→21:07)
[2016-08-21 06:37] LABS: BAND NEUTROPHILS % (MANUAL) 1 % (3-5); BASOPHILS % (MANUAL) 0 % (0-2); EOSINOPHILS % (MANUAL) 0 % (0-6); LYMPHOCYTES % (MANUAL) 8 % (13-45); TOTAL CELLS COUNTED 100
[2016-08-21 06:38] LABS: ANISOCYTOSIS 3+
[2016-08-21] MEDS: CLONIDINE HCL 0.1 MG TABLET PO SCH ×2 (09:17→21:07)
[2016-08-21] MEDS: CITALOPRAM HYDROBROMIDE 20 MG TABLET PO SCH (09:17)
[2016-08-21] MEDS: ENOXAPARIN SODIUM INJ 30 MG/0.3 ML DISP.SYRIN SUBCUT SCH (09:18)
[2016-08-21] MEDS: LOSARTAN POTASSIUM 50 MG TABLET PO SCH (09:18)
[2016-08-21] MEDS: BUDESONIDE/FORMOTEROL 160-4.5 MCG 60 PUFF/6 GM MDI IH SCH ×2 (09:18→21:05)
[2016-08-21] MEDS: TIOTROPIUM BROMIDE DPI 5 CAP/KIT (18 MCG/CAP) IH SCH (09:18)
[2016-08-21] MEDS: AMLODIPINE BESYLATE 5 MG TABLET PO SCH (09:18)
[2016-08-21] MEDS: CLONAZEPAM 1 MG TABLET PO SCH ×2 (09:18→21:07)
[2016-08-21] MEDS: VANCOMYCIN HCL 750 MG in DEXTROSE 5%-WATER 250 ML IV SCH (09:19)
[2016-08-21] MEDS: OXYCODONE HCL IR 5 MG TABLET PO PRN ×2 (11:21→18:22)
[2016-08-21] MEDS ORDERED: NORMAL SALINE 10 ML SDV (AFTER EACH USE) IV PRN (15:34)
--- NOTE | 2016-08-21 17:22 | PDOC PROGRESS REPORT ---
Subjective Progress Note for:: 08/21/16 Subjective:: Patient continues to require BiPAP she has end-stage COPD, DNR is reinstated Physical Exam Vital Signs: Temp Pulse Resp BP Pulse Ox 97.4 F 81 20 122/54 L 97 08/21/16 07:49 08/21/16 15:53 08/21/16 15:53 08/21/16 07:49 08/21/16 15:53 Intake & Output 08/20/16 08/21/16 08/22/16 06:59 06:59 06:59 Intake Total 2219 1418 Output Total 1200 1600 Balance 1019 -182 Weight 78.6 kg 82.4 kg General appearance: PRESENT: severe distress Eye exam: PRESENT: PERRLA Respiratory exam: PRESENT: wheezes Cardiovascular exam: PRESENT: +S1, +S2 GI/Abdominal exam: PRESENT: soft Neurological exam: PRESENT: alert Results Laboratory Results: 08/21/16 05:29 08/20/16 20:47 08/20/16 08/20/16 08/21/16 20:47 20:47 05:29 WBC 24.1 H 15.4 H RBC 3.38 L 2.85 L Hgb 9.2 L 8.0 L Hct 29.2 L 24.8 L MCV 86 87 MCH 27.1 27.9 MCHC 31.4 L 32.1 RDW 24.3 H 25.0 H Plt Count 377 256 Seg Neutrophils % Not Reportable Not Reportable Lymphocytes % Not Reportable Not Reportable Monocytes % Not Reportable Not Reportable Eosinophils % Not Reportable Not Reportable Basophils % Not Reportable Not Reportable Absolute Neutrophils Not Reportable Not Reportable Absolute Lymphocytes Not Reportable Not Reportable Absolute Monocytes Not Reportable Not Reportable Absolute Eosinophils Not Reportable Not Reportable Absolute Basophils Not Reportable Not Reportable Sodium 146.3 H Potassium 4.5 Chloride 114 H Carbon Dioxide 20 L Anion Gap 12 BUN 60 H Creatinine 1.53 H Est GFR ( Amer) 40 L Est GFR (Non-Af Amer) 33 L Glucose 193 H Calcium 8.4 Total Bilirubin 0.4 AST 32 ALT 42 Alkaline Phosphatase 171 H Total Protein 6.9 Albumin 3.6 08/19/16 03:50 Sputum Gram Stain - Final 08/18/16 08/18/16 19:06 19:06 Creatine Kinase 490 H CK-MB (CK-2) 7.77 H Troponin I < 0.012 Impressions: Chest X-Ray 08/18/16 14:13 IMPRESSION: NO ACUTE RADIOGRAPHIC FINDING IN THE CHEST. NO SIGNIFICANT CHANGE FROM PRIOR IMAGING INCLUDING LEFT LOWER LOBE NODULE. Chest CT 08/21/16 00:00 IMPRESSION: 1. Pulmonary nodules are relatively stable. 2. There is pleural/parenchymal scarring. 3. The pleural effusions have resolved. 4. Aortic and coronary atherosclerosis. 5. Extensive compression changes in the spine as described. Guidance Fluoroscopy 08/21/16 00:00 IMPRESSION: SUCCESSFUL PLACEMENT OF A 5 FR DUAL LUMEN 41 CM PICC IN THE left basilic VEIN. Interventional Vascular Procedure 08/21/16 00:00 IMPRESSION: SUCCESSFUL PLACEMENT OF A 5 FR DUAL LUMEN 41 CM PICC IN THE left basilic VEIN. PICC Line Insertion 08/21/16 00:00 IMPRESSION: SUCCESSFUL PLACEMENT OF A 5 FR DUAL LUMEN 41 CM PICC IN THE left basilic VEIN. Assessment & Plan - Diagnosis (1) Septicemia Is this a current diagnosis for this admission?: Yes (2) Squamous cell carcinoma of lung, stage I Qualifiers: Laterality: left Qualified Code(s): C34.92 - Malignant neoplasm of unspecified part of left bronchus or lung Is this a current diagnosis for this admission?: Yes (3) Pneumonia Qualifiers: Pneumonia type: due to unspecified organism Laterality: right Lung location: middle lobe of lung Qualified Code(s): J18.1 - Lobar pneumonia , unspecified organism Is this a current diagnosis for this admission?: Yes (4) Very severe chronic obstructive pulmonary disease Is this a current diagnosis for this admission?: Yes (5) GERD (gastroesophageal reflux disease) Qualifiers: Esophagitis presence: with esophagitis Qualified Code(s): K21.0 - Gastro-esophageal reflux disease with esophagitis Is this a current diagnosis for this admission?: Yes
[2016-08-21 18:13] LABS: HEMATOCRIT 25.2 % (36.0-47.0); HGB HCT DIFFERENCE -1.5; MEAN CORPUSCULAR HEMOGLOBIN 27.5 pg (27.0-33.4); MEAN CORPUSCULAR HGB CONC 31.5 g/dL (32.0-36.0); MEAN CORPUSCULAR VOLUME 87 fl (80-97); RED BLOOD COUNT 2.89 10^6/uL (3.72-5.28); RED CELL DISTRIBUTION WIDTH 24.4 % (11.5-14.0); WHITE BLOOD COUNT 14.2 10^3/uL (4.0-10.5)
[2016-08-21 18:25] LABS: ALANINE AMINOTRANSFERASE 31 U/L (9-52); ALBUMIN 2.9 g/dL (3.5-5.0); ALKALINE PHOSPHATASE 129 U/L (38-126); ANION GAP 11 (5-19); ASPARTATE AMINO TRANSFERASE 18 U/L (14-36); BILIRUBIN,DIRECT 0.1 mg/dL (0.0-0.4); BILIRUBIN,TOTAL 0.1 mg/dL (0.2-1.3); BLOOD UREA NITROGEN 51 mg/dL (7-20); CALCIUM 8.2 mg/dL (8.4-10.2); CARBON DIOXIDE 20 mmol/L (22-30); CHLORIDE 115 mmol/L (98-107); CREATININE RESULT 1.18 mg/dL (0.52-1.25); GLUCOSE 201 mg/dL (75-110); POTASSIUM 4.5 mmol/L (3.6-5.0); SODIUM 145.8 mmol/L (137-145); TOTAL PROTEIN 5.6 g/dL (6.3-8.2)
[2016-08-21 18:50] LABS: HEMOGLOBIN 7.9 g/dL (12.0-15.5)
[2016-08-21 18:52] LABS: BAND NEUTROPHILS % (MANUAL) 2 % (3-5); BASOPHILS % (MANUAL) 0 % (0-2); EOSINOPHILS % (MANUAL) 0 % (0-6); LYMPHOCYTES % (MANUAL) 1 % (13-45); TOTAL CELLS COUNTED 100
[2016-08-21 18:55] LABS: ANISOCYTOSIS 3+; BURR CELLS SLIGHT; HYPOCHROMASIA 1+; OVALOCYTES SLIGHT; POIKILOCYTOSIS SLIGHT
[2016-08-21 18:56] LABS: ROULEAUX 1+
[2016-08-21] MEDS: OXYCODONE-ACETAMINOPHEN 5-325 MG TABLET PO PRN (20:19)
[2016-08-21] MEDS: ATORVASTATIN CALCIUM 10 MG TABLET PO SCH (21:06)
[2016-08-21] MEDS: MIRTAZAPINE 15 MG TABLET PO SCH (21:06)
[2016-08-21] MEDS: CETIRIZINE 5 MG TABLET PO SCH (21:06)
[2016-08-21] MEDS: NORMAL SALINE 10 ML SDV (SCHEDULED) IV SCH (21:07)
[2016-08-22] MEDS: METHYLPREDNISOLONE INJ 125 MG/2 ML SDV IV SCH ×3 (06:36→22:27)
[2016-08-22] MEDS: LANSOPRAZOLE 30 MG TAB.RAP.DR PO SCH (06:37)
[2016-08-22] MEDS: PREGABALIN 75 MG CAPSULE PO SCH ×3 (06:37→22:24)
[2016-08-22] MEDS: ENOXAPARIN SODIUM INJ 30 MG/0.3 ML DISP.SYRIN SUBCUT SCH (08:12)
[2016-08-22] MEDS: OXYCODONE HCL IR 5 MG TABLET PO PRN (08:12)
[2016-08-22] MEDS: IPRATROPIUM/ALBUTEROL 0.5-2.5 MG/3 ML AMPUL NEB PRN ×3 (08:44→20:51)
[2016-08-22 08:51] LABS: HEMATOCRIT 32.7 % (36.0-47.0); MEAN CORPUSCULAR HEMOGLOBIN 28.1 pg (27.0-33.4); MEAN CORPUSCULAR HGB CONC 33.3 g/dL (32.0-36.0); MEAN CORPUSCULAR VOLUME 84 fl (80-97); RED BLOOD COUNT 3.87 10^6/uL (3.72-5.28); RED CELL DISTRIBUTION WIDTH 21.3 % (11.5-14.0)
[2016-08-22 08:55] LABS: HEMOGLOBIN 10.9 g/dL (12.0-15.5)
[2016-08-22 09:16] LABS: ANISOCYTOSIS 3+; BAND NEUTROPHILS % (MANUAL) 1 % (3-5); BASOPHILS % (MANUAL) 0 % (0-2); EOSINOPHILS % (MANUAL) 0 % (0-6); HYPOCHROMASIA SLIGHT; LYMPHOCYTES % (MANUAL) 5 % (13-45); PLATELET CLUMPS PRESENT; POLYCHROMASIA SLIGHT; TOTAL CELLS COUNTED 100; TOXIC GRANULATION SLIGHT
[2016-08-22] MEDS: LOSARTAN POTASSIUM 50 MG TABLET PO SCH (09:55)
[2016-08-22] MEDS: BUDESONIDE/FORMOTEROL 160-4.5 MCG 60 PUFF/6 GM MDI IH SCH ×2 (09:56→22:24)
[2016-08-22] MEDS: CLONAZEPAM 1 MG TABLET PO SCH ×2 (09:56→22:25)
[2016-08-22] MEDS: CITALOPRAM HYDROBROMIDE 20 MG TABLET PO SCH (09:56)
[2016-08-22] MEDS: AMLODIPINE BESYLATE 5 MG TABLET PO SCH (09:56)
[2016-08-22] MEDS: CLONIDINE HCL 0.1 MG TABLET PO SCH ×2 (09:56→22:26)
[2016-08-22] MEDS: TIOTROPIUM BROMIDE DPI 5 CAP/KIT (18 MCG/CAP) IH SCH (09:57)
[2016-08-22] MEDS: NORMAL SALINE 10 ML SDV (SCHEDULED) IV SCH ×2 (09:57→22:28)
[2016-08-22] MEDS: VANCOMYCIN HCL 750 MG in DEXTROSE 5%-WATER 250 ML IV SCH (09:57)
[2016-08-22] MEDS: OXYCODONE-ACETAMINOPHEN 5-325 MG TABLET PO PRN ×2 (14:26→22:24)
[2016-08-22] MEDS: LEVOFLOXACIN 750 MG/D5W RTU 750 MG/150 ML RTUPB IV SCH (18:03)
--- NOTE | 2016-08-22 21:06 | PDOC PROGRESS REPORT ---
Subjective Progress Note for:: 08/22/16 Subjective:: Patient is seen by the bedside, on IV antibiotic, she is seems to be responding to IV antibiotic Physical Exam Vital Signs: Temp Pulse Resp BP Pulse Ox 97.9 F 94 20 139/82 H 98 08/22/16 14:59 08/22/16 14:59 08/22/16 16:00 08/22/16 14:59 08/22/16 14:59 Intake & Output 08/21/16 08/22/16 08/23/16 06:59 06:59 06:59 Intake Total 1418 2930 1390 Output Total 1600 1800 1000 Balance -182 1130 390 Weight 82.4 kg 84.9 kg General appearance: PRESENT: mild distress Eye exam: PRESENT: PERRLA Respiratory exam: PRESENT: crackles Cardiovascular exam: PRESENT: +S1, +S2 GI/Abdominal exam: PRESENT: soft Neurological exam: PRESENT: alert Results Laboratory Results: 08/22/16 08:15 08/22/16 09:55 08/21/16 08/22/16 08/22/16 22:35 08:15 09:55 WBC 12.0 H RBC 3.87 Hgb 10.9 L D Hct 32.7 L MCV 84 MCH 28.1 MCHC 33.3 RDW 21.3 H Plt Count 267 Seg Neutrophils % Not Reportable Lymphocytes % Not Reportable Monocytes % Not Reportable Eosinophils % Not Reportable Basophils % Not Reportable Absolute Neutrophils Not Reportable Absolute Lymphocytes Not Reportable Absolute Monocytes Not Reportable Absolute Eosinophils Not Reportable Absolute Basophils Not Reportable Creatinine 1.30 H Est GFR ( Amer) 49 L Est GFR (Non-Af Amer) 40 L Blood Type A POSITIVE Antibody Screen NEGATIVE 08/19/16 03:50 Sputum Gram Stain - Final 08/18/16 08/18/16 19:06 19:06 Creatine Kinase 490 H CK-MB (CK-2) 7.77 H Troponin I < 0.012 Impressions: Chest X-Ray 08/18/16 14:13 IMPRESSION: NO ACUTE RADIOGRAPHIC FINDING IN THE CHEST. NO SIGNIFICANT CHANGE FROM PRIOR IMAGING INCLUDING LEFT LOWER LOBE NODULE. Chest CT 08/21/16 00:00 IMPRESSION: 1. Pulmonary nodules are relatively stable. 2. There is pleural/parenchymal scarring. 3. The pleural effusions have resolved. 4. Aortic and coronary atherosclerosis. 5. Extensive compression changes in the spine as described. Guidance Fluoroscopy 08/21/16 00:00 IMPRESSION: SUCCESSFUL PLACEMENT OF A 5 FR DUAL LUMEN 41 CM PICC IN THE left basilic VEIN. Interventional Vascular Procedure 08/21/16 00:00 IMPRESSION: SUCCESSFUL PLACEMENT OF A 5 FR DUAL LUMEN 41 CM PICC IN THE left basilic VEIN. PICC Line Insertion 08/21/16 00:00 IMPRESSION: SUCCESSFUL PLACEMENT OF A 5 FR DUAL LUMEN 41 CM PICC IN THE left basilic VEIN. Assessment & Plan - Diagnosis (1) Septicemia Is this a current diagnosis for this admission?: Yes (2) Squamous cell carcinoma of lung, stage I Qualifiers: Laterality: left Qualified Code(s): C34.92 - Malignant neoplasm of unspecified part of left bronchus or lung Is this a current diagnosis for this admission?: Yes (3) Pneumonia Qualifiers: Pneumonia type: due to unspecified organism Laterality: right Lung location: middle lobe of lung Qualified Code(s): J18.1 - Lobar pneumonia , unspecified organism Is this a current diagnosis for this admission?: Yes (4) Very severe chronic obstructive pulmonary disease Is this a current diagnosis for this admission?: Yes (5) GERD (gastroesophageal reflux disease) Qualifiers: Esophagitis presence: with esophagitis Qualified Code(s): K21.0 - Gastro-esophageal reflux disease with esophagitis Is this a current diagnosis for this admission?: Yes
[2016-08-22] MEDS: ATORVASTATIN CALCIUM 10 MG TABLET PO SCH (22:25)
[2016-08-22] MEDS: MIRTAZAPINE 15 MG TABLET PO SCH (22:26)
[2016-08-22] MEDS: CETIRIZINE 5 MG TABLET PO SCH (22:27)
[2016-08-23] MEDS: LANSOPRAZOLE 30 MG TAB.RAP.DR PO SCH (05:47)
[2016-08-23] MEDS: PREGABALIN 75 MG CAPSULE PO SCH ×3 (05:47→21:45)
[2016-08-23] MEDS: METHYLPREDNISOLONE INJ 125 MG/2 ML SDV IV SCH ×2 (05:47→13:24)
[2016-08-23] MEDS: ENOXAPARIN SODIUM INJ 30 MG/0.3 ML DISP.SYRIN SUBCUT SCH (08:14)
[2016-08-23] MEDS: IPRATROPIUM/ALBUTEROL 0.5-2.5 MG/3 ML AMPUL NEB PRN ×3 (08:15→21:14)
[2016-08-23] MEDS: CITALOPRAM HYDROBROMIDE 20 MG TABLET PO SCH (09:59)
[2016-08-23] MEDS: LOSARTAN POTASSIUM 50 MG TABLET PO SCH (09:59)
[2016-08-23] MEDS: CLONAZEPAM 1 MG TABLET PO SCH ×2 (10:00→21:45)
[2016-08-23] MEDS: CLONIDINE HCL 0.1 MG TABLET PO SCH ×2 (10:00→21:45)
[2016-08-23] MEDS: AMLODIPINE BESYLATE 5 MG TABLET PO SCH (10:00)
[2016-08-23] MEDS: BUDESONIDE/FORMOTEROL 160-4.5 MCG 60 PUFF/6 GM MDI IH SCH ×2 (10:01→21:44)
[2016-08-23] MEDS: NORMAL SALINE 10 ML SDV (SCHEDULED) IV SCH ×2 (10:01→21:44)
[2016-08-23] MEDS: TIOTROPIUM BROMIDE DPI 5 CAP/KIT (18 MCG/CAP) IH SCH (10:02)
[2016-08-23] MEDS: VANCOMYCIN HCL 750 MG in DEXTROSE 5%-WATER 250 ML IV SCH (10:02)
[2016-08-23] MEDS: OXYCODONE HCL IR 5 MG TABLET PO PRN (10:03)
[2016-08-23] MEDS: OXYCODONE-ACETAMINOPHEN 5-325 MG TABLET PO PRN (10:04)
[2016-08-23] MEDS ORDERED: CEFAZOLIN 1 GM/D5W RTU 1 GM/50 ML RTUPB IV ONE (15:00)
[2016-08-23] MEDS: ALBUTEROL SULFATE HFA (90 MCG/PUFF) 200 PUFF/8.5 GM MDI IH PRN (17:43)
--- NOTE | 2016-08-23 18:33 | PDOC PROGRESS REPORT ---
Subjective Progress Note for:: 08/23/16 Subjective:: The sputum culture grew Proteus, antibiotic was changed to reflect the sensitivity, she is doing well today Physical Exam Vital Signs: Temp Pulse Resp BP Pulse Ox 97.6 F 101 H 19 133/72 H 98 08/23/16 16:15 08/23/16 16:15 08/23/16 16:15 08/23/16 16:15 08/23/16 16:15 Intake & Output 08/22/16 08/23/16 08/24/16 06:59 06:59 06:59 Intake Total 2930 1700 1800 Output Total 1800 1750 500 Balance 1130 -50 1300 Weight 84.9 kg 85.4 kg 85.4 kg General appearance: PRESENT: no acute distress Eye exam: PRESENT: PERRLA Respiratory exam: PRESENT: rhonchi Cardiovascular exam: PRESENT: +S1, +S2 GI/Abdominal exam: PRESENT: soft Neurological exam: PRESENT: alert, CN II-XII grossly intact Results Laboratory Results: 08/22/16 08:15 08/22/16 09:55 08/19/16 03:50 Sputum Gram Stain - Final 08/18/16 08/18/16 19:06 19:06 Creatine Kinase 490 H CK-MB (CK-2) 7.77 H Troponin I < 0.012 Impressions: Chest X-Ray 08/18/16 14:13 IMPRESSION: NO ACUTE RADIOGRAPHIC FINDING IN THE CHEST. NO SIGNIFICANT CHANGE FROM PRIOR IMAGING INCLUDING LEFT LOWER LOBE NODULE. Chest CT 08/21/16 00:00 IMPRESSION: 1. Pulmonary nodules are relatively stable. 2. There is pleural/parenchymal scarring. 3. The pleural effusions have resolved. 4. Aortic and coronary atherosclerosis. 5. Extensive compression changes in the spine as described. Guidance Fluoroscopy 08/21/16 00:00 IMPRESSION: SUCCESSFUL PLACEMENT OF A 5 FR DUAL LUMEN 41 CM PICC IN THE left basilic VEIN. Interventional Vascular Procedure 08/21/16 00:00 IMPRESSION: SUCCESSFUL PLACEMENT OF A 5 FR DUAL LUMEN 41 CM PICC IN THE left basilic VEIN. PICC Line Insertion 08/21/16 00:00 IMPRESSION: SUCCESSFUL PLACEMENT OF A 5 FR DUAL LUMEN 41 CM PICC IN THE left basilic VEIN. Assessment & Plan - Diagnosis (1) Septicemia Is this a current diagnosis for this admission?: Yes (2) Squamous cell carcinoma of lung, stage I Qualifiers: Laterality: left Qualified Code(s): C34.92 - Malignant neoplasm of unspecified part of left bronchus or lung Is this a current diagnosis for this admission?: Yes (3) Pneumonia Qualifiers: Pneumonia type: due to unspecified organism Laterality: right Lung location: middle lobe of lung Qualified Code(s): J18.1 - Lobar pneumonia , unspecified organism Is this a current diagnosis for this admission?: Yes (4) Very severe chronic obstructive pulmonary disease Is this a current diagnosis for this admission?: Yes (5) GERD (gastroesophageal reflux disease) Qualifiers: Esophagitis presence: with esophagitis Qualified Code(s): K21.0 - Gastro-esophageal reflux disease with esophagitis Is this a current diagnosis for this admission?: Yes
[2016-08-23] MEDS ORDERED: METHYLPREDNISOLONE INJ 125 MG/2 ML SDV IV SCH (18:41)
[2016-08-23] MEDS ORDERED: NORMAL SALINE 1000 ML 1,000 ML IV PRN (19:00)
[2016-08-23] MEDS: CEFAZOLIN 1 GM/D5W RTU 1 GM/50 ML RTUPB IV SCH (21:43)
[2016-08-23] MEDS: MIRTAZAPINE 15 MG TABLET PO SCH (21:44)
[2016-08-23] MEDS: METHYLPREDNISOLONE INJ 40 MG/1 ML SDV IV SCH (21:44)
[2016-08-23] MEDS: ATORVASTATIN CALCIUM 10 MG TABLET PO SCH (21:45)
[2016-08-23] MEDS: CETIRIZINE 5 MG TABLET PO SCH (21:45)
[2016-08-24] MEDS: METHYLPREDNISOLONE INJ 40 MG/1 ML SDV IV SCH ×3 (05:40→21:52)
[2016-08-24] MEDS: LANSOPRAZOLE 30 MG TAB.RAP.DR PO SCH (05:41)
[2016-08-24] MEDS: CEFAZOLIN 1 GM/D5W RTU 1 GM/50 ML RTUPB IV SCH ×3 (05:41→21:52)
[2016-08-24] MEDS: PREGABALIN 75 MG CAPSULE PO SCH ×3 (05:41→21:53)
[2016-08-24] MEDS: CLONIDINE HCL 0.1 MG TABLET PO SCH ×2 (08:14→21:53)
[2016-08-24] MEDS: AMLODIPINE BESYLATE 5 MG TABLET PO SCH (08:14)
[2016-08-24] MEDS: ENOXAPARIN SODIUM INJ 30 MG/0.3 ML DISP.SYRIN SUBCUT SCH (08:14)
[2016-08-24] MEDS: LOSARTAN POTASSIUM 50 MG TABLET PO SCH (08:15)
[2016-08-24] MEDS: BUDESONIDE/FORMOTEROL 160-4.5 MCG 60 PUFF/6 GM MDI IH SCH ×2 (10:41→21:55)
[2016-08-24] MEDS: TIOTROPIUM BROMIDE DPI 5 CAP/KIT (18 MCG/CAP) IH SCH (10:42)
[2016-08-24] MEDS: CLONAZEPAM 1 MG TABLET PO SCH ×2 (10:44→21:53)
[2016-08-24] MEDS: VANCOMYCIN HCL 750 MG in DEXTROSE 5%-WATER 250 ML IV SCH (10:45)
[2016-08-24] MEDS: CITALOPRAM HYDROBROMIDE 20 MG TABLET PO SCH (10:45)
[2016-08-24] MEDS: NORMAL SALINE 10 ML SDV (SCHEDULED) IV SCH ×2 (10:46→21:55)
[2016-08-24] MEDS: OXYCODONE-ACETAMINOPHEN 5-325 MG TABLET PO PRN ×2 (11:13→23:50)
[2016-08-24] MEDS: OXYCODONE HCL IR 5 MG TABLET PO PRN (11:14)
[2016-08-24] MEDS: IPRATROPIUM/ALBUTEROL 0.5-2.5 MG/3 ML AMPUL NEB PRN ×2 (12:43→18:00)
--- NOTE | 2016-08-24 13:31 | PDOC PROGRESS REPORT ---
Subjective Progress Note for:: 08/24/16 Subjective:: Patient was seen by the bedside, she continues to improve slowly on IV antibiotic, yesterday the Solu-Medrol dose was decreased Physical Exam Vital Signs: Temp Pulse Resp BP Pulse Ox 97.4 F 93 18 151/69 H 98 08/24/16 10:59 08/24/16 12:45 08/24/16 12:45 08/24/16 10:59 08/24/16 12:45 Intake & Output 08/23/16 08/24/16 08/25/16 06:59 06:59 06:59 Intake Total 1700 3200 480 Output Total 1750 2350 650 Balance -50 850 -170 Weight 85.4 kg 82.1 kg General appearance: PRESENT: no acute distress Head exam: PRESENT: atraumatic, normocephalic Eye exam: PRESENT: conjunctiva pink, EOMI, PERRLA Ear exam: PRESENT: normal external ear exam Mouth exam: PRESENT: moist, tongue midline Neck exam: PRESENT: full ROM Cardiovascular exam: PRESENT: RRR, +S1, +S2 Vascular exam: PRESENT: normal capillary refill GI/Abdominal exam: PRESENT: soft Rectal exam: PRESENT: deferred Neurological exam: PRESENT: alert, awake, oriented to person, oriented to place , oriented to time, oriented to situation, CN II-XII grossly intact. ABSENT: motor sensory deficit Psychiatric exam: PRESENT: appropriate affect, normal mood Skin exam: PRESENT: dry, intact, warm. ABSENT: cyanosis, rash Results Laboratory Results: 08/22/16 08:15 08/22/16 09:55 08/19/16 03:50 Sputum Gram Stain - Final 08/18/16 08/18/16 19:06 19:06 Creatine Kinase 490 H CK-MB (CK-2) 7.77 H Troponin I < 0.012 Impressions: Chest X-Ray 08/18/16 14:13 IMPRESSION: NO ACUTE RADIOGRAPHIC FINDING IN THE CHEST. NO SIGNIFICANT CHANGE FROM PRIOR IMAGING INCLUDING LEFT LOWER LOBE NODULE. Chest CT 08/21/16 00:00 IMPRESSION: 1. Pulmonary nodules are relatively stable. 2. There is pleural/parenchymal scarring. 3. The pleural effusions have resolved. 4. Aortic and coronary atherosclerosis. 5. Extensive compression changes in the spine as described. Guidance Fluoroscopy 08/21/16 00:00 IMPRESSION: SUCCESSFUL PLACEMENT OF A 5 FR DUAL LUMEN 41 CM PICC IN THE left basilic VEIN. Interventional Vascular Procedure 08/21/16 00:00 IMPRESSION: SUCCESSFUL PLACEMENT OF A 5 FR DUAL LUMEN 41 CM PICC IN THE left basilic VEIN. PICC Line Insertion 08/21/16 00:00 IMPRESSION: SUCCESSFUL PLACEMENT OF A 5 FR DUAL LUMEN 41 CM PICC IN THE left basilic VEIN. Assessment & Plan - Diagnosis (1) Proteus pneumonia Is this a current diagnosis for this admission?: YesPlan: She has Proteus pneumonia, yesterday the antibiotic was changed to cefazolin based on culture sensitivity result (2) Septicemia Is this a current diagnosis for this admission?: Yes (3) Squamous cell carcinoma of lung, stage I Qualifiers: Laterality: left Qualified Code(s): C34.92 - Malignant neoplasm of unspecified part of left bronchus or lung Is this a current diagnosis for this admission?: Yes (4) Pneumonia Qualifiers: Pneumonia type: due to unspecified organism Laterality: right Lung location: middle lobe of lung Qualified Code(s): J18.1 - Lobar pneumonia , unspecified organism Is this a current diagnosis for this admission?: Yes (5) Very severe chronic obstructive pulmonary disease Is this a current diagnosis for this admission?: Yes (6) GERD (gastroesophageal reflux disease) Qualifiers: Esophagitis presence: with esophagitis Qualified Code(s): K21.0 - Gastro-esophageal reflux disease with esophagitis Is this a current diagnosis for this admission?: Yes
[2016-08-24] MEDS: MIRTAZAPINE 15 MG TABLET PO SCH (21:52)
[2016-08-24] MEDS: ATORVASTATIN CALCIUM 10 MG TABLET PO SCH (21:52)
[2016-08-24] MEDS: CETIRIZINE 5 MG TABLET PO SCH (21:55)
[2016-08-25] MEDS: CEFAZOLIN 1 GM/D5W RTU 1 GM/50 ML RTUPB IV SCH ×3 (05:31→21:18)
[2016-08-25] MEDS: METHYLPREDNISOLONE INJ 40 MG/1 ML SDV IV SCH ×3 (05:32→21:18)
[2016-08-25] MEDS: LANSOPRAZOLE 30 MG TAB.RAP.DR PO SCH (05:32)
[2016-08-25] MEDS: PREGABALIN 75 MG CAPSULE PO SCH ×3 (05:32→21:17)
[2016-08-25] MEDS: ENOXAPARIN SODIUM INJ 30 MG/0.3 ML DISP.SYRIN SUBCUT SCH (08:11)
[2016-08-25] MEDS: IPRATROPIUM/ALBUTEROL 0.5-2.5 MG/3 ML AMPUL NEB PRN (09:09)
[2016-08-25] MEDS: BUDESONIDE/FORMOTEROL 160-4.5 MCG 60 PUFF/6 GM MDI IH SCH ×2 (09:48→21:17)
[2016-08-25] MEDS: TIOTROPIUM BROMIDE DPI 5 CAP/KIT (18 MCG/CAP) IH SCH (09:48)
[2016-08-25] MEDS: VANCOMYCIN HCL 750 MG in DEXTROSE 5%-WATER 250 ML IV SCH (09:48)
[2016-08-25] MEDS: CITALOPRAM HYDROBROMIDE 20 MG TABLET PO SCH (09:49)
[2016-08-25] MEDS: OXYCODONE-ACETAMINOPHEN 5-325 MG TABLET PO PRN ×2 (09:49→21:17)
[2016-08-25] MEDS: AMLODIPINE BESYLATE 5 MG TABLET PO SCH (09:49)
[2016-08-25] MEDS: OXYCODONE HCL IR 5 MG TABLET PO PRN (09:50)
[2016-08-25] MEDS: LOSARTAN POTASSIUM 50 MG TABLET PO SCH (09:50)
[2016-08-25] MEDS: CLONAZEPAM 1 MG TABLET PO SCH ×2 (09:50→21:17)
[2016-08-25] MEDS: NORMAL SALINE 10 ML SDV (SCHEDULED) IV SCH ×2 (09:51→21:19)
[2016-08-25] MEDS: CLONIDINE HCL 0.1 MG TABLET PO SCH ×2 (09:54→21:17)
[2016-08-25 12:25] LABS: CREATININE RESULT 0.97 mg/dL (0.52-1.25)
--- NOTE | 2016-08-25 15:54 | PDOC PROGRESS REPORT ---
Subjective Progress Note for:: 08/25/16 Subjective:: Patient admitted for Proteus pneumonia, seen by the bedside continue IV antibiotic for a few more days Physical Exam Vital Signs: Temp Pulse Resp BP Pulse Ox 97.9 F 82 20 119/71 100 08/25/16 12:31 08/25/16 12:31 08/25/16 12:31 08/25/16 12:31 08/25/16 12:31 Intake & Output 08/24/16 08/25/16 08/26/16 06:59 06:59 06:59 Intake Total 3200 3123 640 Output Total 2350 2350 500 Balance 850 773 140 Weight 82.1 kg 83.6 kg General appearance: PRESENT: no acute distress Eye exam: PRESENT: PERRLA Respiratory exam: PRESENT: clear to auscultation ghulam Cardiovascular exam: PRESENT: +S1, +S2 GI/Abdominal exam: PRESENT: soft Neurological exam: PRESENT: alert, CN II-XII grossly intact Results Laboratory Results: 08/22/16 08:15 08/25/16 11:50 08/25/16 11:50 Creatinine 0.97 Est GFR ( Amer) > 60 Est GFR (Non-Af Amer) 56 L 08/18/16 08/18/16 19:06 19:06 Creatine Kinase 490 H CK-MB (CK-2) 7.77 H Troponin I < 0.012 Impressions: Chest X-Ray 08/18/16 14:13 IMPRESSION: NO ACUTE RADIOGRAPHIC FINDING IN THE CHEST. NO SIGNIFICANT CHANGE FROM PRIOR IMAGING INCLUDING LEFT LOWER LOBE NODULE. Chest CT 08/21/16 00:00 IMPRESSION: 1. Pulmonary nodules are relatively stable. 2. There is pleural/parenchymal scarring. 3. The pleural effusions have resolved. 4. Aortic and coronary atherosclerosis. 5. Extensive compression changes in the spine as described. Guidance Fluoroscopy 08/21/16 00:00 IMPRESSION: SUCCESSFUL PLACEMENT OF A 5 FR DUAL LUMEN 41 CM PICC IN THE left basilic VEIN. Interventional Vascular Procedure 08/21/16 00:00 IMPRESSION: SUCCESSFUL PLACEMENT OF A 5 FR DUAL LUMEN 41 CM PICC IN THE left basilic VEIN. PICC Line Insertion 08/21/16 00:00 IMPRESSION: SUCCESSFUL PLACEMENT OF A 5 FR DUAL LUMEN 41 CM PICC IN THE left basilic VEIN. Assessment & Plan - Diagnosis (1) Proteus pneumonia Is this a current diagnosis for this admission?: YesPlan: She will continue IV cefazolin (2) Septicemia Is this a current diagnosis for this admission?: Yes (3) Squamous cell carcinoma of lung, stage I Qualifiers: Laterality: left Qualified Code(s): C34.92 - Malignant neoplasm of unspecified part of left bronchus or lung Is this a current diagnosis for this admission?: Yes (4) Pneumonia Qualifiers: Pneumonia type: due to unspecified organism Laterality: right Lung location: middle lobe of lung Qualified Code(s): J18.1 - Lobar pneumonia , unspecified organism Is this a current diagnosis for this admission?: Yes (5) Very severe chronic obstructive pulmonary disease Is this a current diagnosis for this admission?: Yes (6) GERD (gastroesophageal reflux disease) Qualifiers: Esophagitis presence: with esophagitis Qualified Code(s): K21.0 - Gastro-esophageal reflux disease with esophagitis Is this a current diagnosis for this admission?: Yes
[2016-08-25] MEDS: MIRTAZAPINE 15 MG TABLET PO SCH (21:16)
[2016-08-25] MEDS: CETIRIZINE 5 MG TABLET PO SCH (21:16)
[2016-08-25] MEDS: ATORVASTATIN CALCIUM 10 MG TABLET PO SCH (21:17)
[2016-08-26] MEDS: CEFAZOLIN 1 GM/D5W RTU 1 GM/50 ML RTUPB IV SCH ×3 (05:31→21:35)
[2016-08-26] MEDS: METHYLPREDNISOLONE INJ 40 MG/1 ML SDV IV SCH ×3 (05:32→21:37)
[2016-08-26] MEDS: LANSOPRAZOLE 30 MG TAB.RAP.DR PO SCH (05:32)
[2016-08-26] MEDS: PREGABALIN 75 MG CAPSULE PO SCH ×3 (05:32→21:36)
[2016-08-26] MEDS: IPRATROPIUM/ALBUTEROL 0.5-2.5 MG/3 ML AMPUL NEB PRN (08:57)
[2016-08-26] MEDS ORDERED: ERGOCALCIFEROL (VITAMIN D2) 50000 UNIT (1.25 MG) CAPSULE PO SCH (10:00)
[2016-08-26] MEDS: OXYCODONE-ACETAMINOPHEN 5-325 MG TABLET PO PRN ×2 (10:39→21:35)
[2016-08-26] MEDS: LOSARTAN POTASSIUM 50 MG TABLET PO SCH (10:40)
[2016-08-26] MEDS: CITALOPRAM HYDROBROMIDE 20 MG TABLET PO SCH (10:42)
[2016-08-26] MEDS: CLONIDINE HCL 0.1 MG TABLET PO SCH ×2 (10:42→21:36)
[2016-08-26] MEDS: CLONAZEPAM 1 MG TABLET PO SCH ×2 (10:42→21:36)
[2016-08-26] MEDS: AMLODIPINE BESYLATE 5 MG TABLET PO SCH (10:43)
[2016-08-26] MEDS: BUDESONIDE/FORMOTEROL 160-4.5 MCG 60 PUFF/6 GM MDI IH SCH ×2 (10:45→21:35)
[2016-08-26] MEDS: TIOTROPIUM BROMIDE DPI 5 CAP/KIT (18 MCG/CAP) IH SCH (10:45)
[2016-08-26] MEDS: NORMAL SALINE 10 ML SDV (SCHEDULED) IV SCH ×2 (10:45→21:37)
[2016-08-26] MEDS: ENOXAPARIN SODIUM INJ 30 MG/0.3 ML DISP.SYRIN SUBCUT SCH (11:23)
--- NOTE | 2016-08-26 18:58 | PDOC PROGRESS REPORT ---
Subjective Progress Note for:: 08/26/16 Subjective:: Patient admitted for Proteus pneumonia, seen by the bedside continue IV antibiotic for a few more days Physical Exam Vital Signs: Temp Pulse Resp BP Pulse Ox 97.9 F 76 16 131/74 H 96 08/26/16 16:37 08/26/16 16:37 08/26/16 16:47 08/26/16 16:37 08/26/16 16:47 Intake & Output 08/25/16 08/26/16 08/27/16 06:59 06:59 06:59 Intake Total 3123 2370 472 Output Total 2350 2100 400 Balance 773 270 72 Weight 83.6 kg 85.4 kg General appearance: PRESENT: no acute distress Eye exam: PRESENT: PERRLA Respiratory exam: PRESENT: clear to auscultation ghulam Cardiovascular exam: PRESENT: +S1, +S2 GI/Abdominal exam: PRESENT: soft Results Laboratory Results: 08/22/16 08:15 08/25/16 11:50 08/19/16 03:50 Sputum Gram Stain - Final 08/19/16 03:50 Sputum Sputum Culture - Final Proteus Mirabilis Mrsa (Meth Resis Staph Aureus) Normal Caron Absent 08/18/16 08/18/16 19:06 19:06 Creatine Kinase 490 H CK-MB (CK-2) 7.77 H Troponin I < 0.012 Impressions: Chest X-Ray 08/18/16 14:13 IMPRESSION: NO ACUTE RADIOGRAPHIC FINDING IN THE CHEST. NO SIGNIFICANT CHANGE FROM PRIOR IMAGING INCLUDING LEFT LOWER LOBE NODULE. Chest CT 08/21/16 00:00 IMPRESSION: 1. Pulmonary nodules are relatively stable. 2. There is pleural/parenchymal scarring. 3. The pleural effusions have resolved. 4. Aortic and coronary atherosclerosis. 5. Extensive compression changes in the spine as described. Guidance Fluoroscopy 08/21/16 00:00 IMPRESSION: SUCCESSFUL PLACEMENT OF A 5 FR DUAL LUMEN 41 CM PICC IN THE left basilic VEIN. Interventional Vascular Procedure 08/21/16 00:00 IMPRESSION: SUCCESSFUL PLACEMENT OF A 5 FR DUAL LUMEN 41 CM PICC IN THE left basilic VEIN. PICC Line Insertion 08/21/16 00:00 IMPRESSION: SUCCESSFUL PLACEMENT OF A 5 FR DUAL LUMEN 41 CM PICC IN THE left basilic VEIN. Assessment & Plan - Diagnosis (1) Proteus pneumonia Is this a current diagnosis for this admission?: Yes (2) Septicemia Is this a current diagnosis for this admission?: Yes (3) Squamous cell carcinoma of lung, stage I Qualifiers: Laterality: left Qualified Code(s): C34.92 - Malignant neoplasm of unspecified part of left bronchus or lung Is this a current diagnosis for this admission?: Yes (4) Pneumonia Qualifiers: Pneumonia type: due to unspecified organism Laterality: right Lung location: middle lobe of lung Qualified Code(s): J18.1 - Lobar pneumonia , unspecified organism Is this a current diagnosis for this admission?: Yes (5) Very severe chronic obstructive pulmonary disease Is this a current diagnosis for this admission?: Yes (6) GERD (gastroesophageal reflux disease) Qualifiers: Esophagitis presence: with esophagitis Qualified Code(s): K21.0 - Gastro-esophageal reflux disease with esophagitis Is this a current diagnosis for this admission?: Yes
[2016-08-26] MEDS: ATORVASTATIN CALCIUM 10 MG TABLET PO SCH (21:36)
[2016-08-26] MEDS: MIRTAZAPINE 15 MG TABLET PO SCH (21:36)
[2016-08-26] MEDS: CETIRIZINE 5 MG TABLET PO SCH (21:36)
[2016-08-27] MEDS: LANSOPRAZOLE 30 MG TAB.RAP.DR PO SCH (05:35)
[2016-08-27] MEDS: METHYLPREDNISOLONE INJ 40 MG/1 ML SDV IV SCH ×3 (05:36→22:29)
[2016-08-27] MEDS: PREGABALIN 75 MG CAPSULE PO SCH ×3 (05:36→22:30)
[2016-08-27] MEDS: CEFAZOLIN 1 GM/D5W RTU 1 GM/50 ML RTUPB IV SCH ×3 (05:36→22:29)
[2016-08-27] MEDS: ENOXAPARIN SODIUM INJ 30 MG/0.3 ML DISP.SYRIN SUBCUT SCH (07:52)
[2016-08-27] MEDS: IPRATROPIUM/ALBUTEROL 0.5-2.5 MG/3 ML AMPUL NEB PRN ×2 (09:09→17:03)
[2016-08-27] MEDS: CITALOPRAM HYDROBROMIDE 20 MG TABLET PO SCH (10:11)
[2016-08-27] MEDS: CLONAZEPAM 1 MG TABLET PO SCH ×2 (10:11→22:30)
[2016-08-27] MEDS: AMLODIPINE BESYLATE 5 MG TABLET PO SCH (10:12)
[2016-08-27] MEDS: CLONIDINE HCL 0.1 MG TABLET PO SCH ×2 (10:12→22:31)
[2016-08-27] MEDS: LOSARTAN POTASSIUM 50 MG TABLET PO SCH (10:13)
[2016-08-27] MEDS: BUDESONIDE/FORMOTEROL 160-4.5 MCG 60 PUFF/6 GM MDI IH SCH ×2 (10:13→22:29)
[2016-08-27] MEDS: OXYCODONE-ACETAMINOPHEN 5-325 MG TABLET PO PRN ×2 (10:14→22:30)
[2016-08-27] MEDS: NORMAL SALINE 10 ML SDV (SCHEDULED) IV SCH ×2 (10:14→22:32)
[2016-08-27] MEDS: TIOTROPIUM BROMIDE DPI 5 CAP/KIT (18 MCG/CAP) IH SCH (10:14)
--- NOTE | 2016-08-27 17:27 | PDOC PROGRESS REPORT ---
Subjective Progress Note for:: 08/27/16 Subjective:: Patient is improving on present regimen Physical Exam Vital Signs: Temp Pulse Resp BP Pulse Ox 98.1 F 86 22 H 145/84 H 97 08/27/16 15:17 08/27/16 17:06 08/27/16 17:06 08/27/16 15:17 08/27/16 17:06 Intake & Output 08/26/16 08/27/16 08/28/16 06:59 06:59 06:59 Intake Total 2370 1582 590 Output Total 2100 1800 850 Balance 270 -218 -260 Weight 85.4 kg 85.3 kg General appearance: PRESENT: no acute distress Eye exam: PRESENT: PERRLA Respiratory exam: PRESENT: clear to auscultation ghulam Cardiovascular exam: PRESENT: +S1, +S2 GI/Abdominal exam: PRESENT: soft Neurological exam: PRESENT: alert, CN II-XII grossly intact Results Laboratory Results: 08/22/16 08:15 08/25/16 11:50 08/19/16 03:50 Sputum Gram Stain - Final 08/19/16 03:50 Sputum Sputum Culture - Final Proteus Mirabilis Mrsa (Meth Resis Staph Aureus) Normal Caron Absent 08/18/16 08/18/16 19:06 19:06 Creatine Kinase 490 H CK-MB (CK-2) 7.77 H Troponin I < 0.012 Impressions: Chest X-Ray 08/18/16 14:13 IMPRESSION: NO ACUTE RADIOGRAPHIC FINDING IN THE CHEST. NO SIGNIFICANT CHANGE FROM PRIOR IMAGING INCLUDING LEFT LOWER LOBE NODULE. Chest CT 08/21/16 00:00 IMPRESSION: 1. Pulmonary nodules are relatively stable. 2. There is pleural/parenchymal scarring. 3. The pleural effusions have resolved. 4. Aortic and coronary atherosclerosis. 5. Extensive compression changes in the spine as described. Guidance Fluoroscopy 08/21/16 00:00 IMPRESSION: SUCCESSFUL PLACEMENT OF A 5 FR DUAL LUMEN 41 CM PICC IN THE left basilic VEIN. Interventional Vascular Procedure 08/21/16 00:00 IMPRESSION: SUCCESSFUL PLACEMENT OF A 5 FR DUAL LUMEN 41 CM PICC IN THE left basilic VEIN. PICC Line Insertion 08/21/16 00:00 IMPRESSION: SUCCESSFUL PLACEMENT OF A 5 FR DUAL LUMEN 41 CM PICC IN THE left basilic VEIN. Assessment & Plan - Diagnosis (1) Proteus pneumonia Is this a current diagnosis for this admission?: Yes (2) Septicemia Is this a current diagnosis for this admission?: Yes (3) Squamous cell carcinoma of lung, stage I Qualifiers: Laterality: left Qualified Code(s): C34.92 - Malignant neoplasm of unspecified part of left bronchus or lung Is this a current diagnosis for this admission?: Yes (4) Pneumonia Qualifiers: Pneumonia type: due to unspecified organism Laterality: right Lung location: middle lobe of lung Qualified Code(s): J18.1 - Lobar pneumonia , unspecified organism Is this a current diagnosis for this admission?: Yes (5) Very severe chronic obstructive pulmonary disease Is this a current diagnosis for this admission?: Yes (6) GERD (gastroesophageal reflux disease) Qualifiers: Esophagitis presence: with esophagitis Qualified Code(s): K21.0 - Gastro-esophageal reflux disease with esophagitis Is this a current diagnosis for this admission?: Yes
[2016-08-27] MEDS: MIRTAZAPINE 15 MG TABLET PO SCH (22:30)
[2016-08-27] MEDS: CETIRIZINE 5 MG TABLET PO SCH (22:30)
[2016-08-27] MEDS: ATORVASTATIN CALCIUM 10 MG TABLET PO SCH (22:31)
[2016-08-28] MEDS: CEFAZOLIN 1 GM/D5W RTU 1 GM/50 ML RTUPB IV SCH ×3 (06:00→21:56)
[2016-08-28] MEDS: PREGABALIN 75 MG CAPSULE PO SCH ×3 (06:00→21:55)
[2016-08-28] MEDS: METHYLPREDNISOLONE INJ 40 MG/1 ML SDV IV SCH ×3 (06:00→22:23)
[2016-08-28] MEDS: ENOXAPARIN SODIUM INJ 30 MG/0.3 ML DISP.SYRIN SUBCUT SCH (08:00)
[2016-08-28] MEDS: CITALOPRAM HYDROBROMIDE 20 MG TABLET PO SCH (10:00)
[2016-08-28] MEDS: NORMAL SALINE 10 ML SDV (SCHEDULED) IV SCH ×2 (10:00→21:56)
[2016-08-28] MEDS: CLONIDINE HCL 0.1 MG TABLET PO SCH ×2 (10:00→22:01)
[2016-08-28] MEDS: LOSARTAN POTASSIUM 50 MG TABLET PO SCH (10:00)
[2016-08-28] MEDS: CLONAZEPAM 1 MG TABLET PO SCH ×2 (10:00→21:55)
[2016-08-28] MEDS: AMLODIPINE BESYLATE 5 MG TABLET PO SCH (10:00)
[2016-08-28] MEDS: BUDESONIDE/FORMOTEROL 160-4.5 MCG 60 PUFF/6 GM MDI IH SCH ×2 (10:00→21:54)
[2016-08-28] MEDS: TIOTROPIUM BROMIDE DPI 5 CAP/KIT (18 MCG/CAP) IH SCH (10:00)
[2016-08-28] MEDS: OXYCODONE-ACETAMINOPHEN 5-325 MG TABLET PO PRN (21:55)
[2016-08-28] MEDS: MIRTAZAPINE 15 MG TABLET PO SCH (21:55)
[2016-08-28] MEDS: ATORVASTATIN CALCIUM 10 MG TABLET PO SCH (21:55)
[2016-08-28] MEDS: CETIRIZINE 5 MG TABLET PO SCH (22:01)
[2016-08-29] MEDS: PREGABALIN 75 MG CAPSULE PO SCH ×3 (05:05→22:15)
[2016-08-29] MEDS: METHYLPREDNISOLONE INJ 40 MG/1 ML SDV IV SCH ×3 (05:05→22:13)
[2016-08-29] MEDS: CEFAZOLIN 1 GM/D5W RTU 1 GM/50 ML RTUPB IV SCH ×3 (05:05→22:16)
[2016-08-29] MEDS: LANSOPRAZOLE 30 MG TAB.RAP.DR PO SCH (05:09)
[2016-08-29] MEDS: ENOXAPARIN SODIUM INJ 30 MG/0.3 ML DISP.SYRIN SUBCUT SCH (08:11)
[2016-08-29] MEDS: IPRATROPIUM/ALBUTEROL 0.5-2.5 MG/3 ML AMPUL NEB PRN (08:12)
[2016-08-29] MEDS: LOSARTAN POTASSIUM 50 MG TABLET PO SCH (09:51)
[2016-08-29] MEDS: CLONAZEPAM 1 MG TABLET PO SCH ×2 (09:51→22:15)
[2016-08-29] MEDS: CITALOPRAM HYDROBROMIDE 20 MG TABLET PO SCH (09:51)
[2016-08-29] MEDS: AMLODIPINE BESYLATE 5 MG TABLET PO SCH (09:51)
[2016-08-29] MEDS: CLONIDINE HCL 0.1 MG TABLET PO SCH ×2 (09:52→22:15)
[2016-08-29] MEDS: NORMAL SALINE 10 ML SDV (SCHEDULED) IV SCH ×2 (09:53→22:15)
[2016-08-29] MEDS: TIOTROPIUM BROMIDE DPI 5 CAP/KIT (18 MCG/CAP) IH SCH (09:53)
[2016-08-29] MEDS: BUDESONIDE/FORMOTEROL 160-4.5 MCG 60 PUFF/6 GM MDI IH SCH ×2 (09:53→22:17)
--- NOTE | 2016-08-29 20:09 | PDOC PROGRESS REPORT ---
Subjective Progress Note for:: 08/28/16 Subjective:: Patient was to be transferred back to detention today but the systems is down Physical Exam Vital Signs: Temp Pulse Resp BP Pulse Ox 97.3 F 82 20 129/65 H 99 08/29/16 16:00 08/29/16 16:00 08/29/16 16:00 08/29/16 16:00 08/29/16 16:00 Intake & Output 08/28/16 08/29/16 08/30/16 06:59 06:59 06:59 Intake Total 5448 708 7011 Output Total 1550 Balance -076 789 6216 Weight 78.4 kg General appearance: PRESENT: no acute distress Eye exam: PRESENT: PERRLA Cardiovascular exam: PRESENT: +S1, +S2 GI/Abdominal exam: PRESENT: soft Results Laboratory Results: 08/22/16 08:15 08/25/16 11:50 08/18/16 08/18/16 19:06 19:06 Creatine Kinase 490 H CK-MB (CK-2) 7.77 H Troponin I < 0.012 Impressions: Chest X-Ray 08/18/16 14:13 IMPRESSION: NO ACUTE RADIOGRAPHIC FINDING IN THE CHEST. NO SIGNIFICANT CHANGE FROM PRIOR IMAGING INCLUDING LEFT LOWER LOBE NODULE. Chest CT 08/21/16 00:00 IMPRESSION: 1. Pulmonary nodules are relatively stable. 2. There is pleural/parenchymal scarring. 3. The pleural effusions have resolved. 4. Aortic and coronary atherosclerosis. 5. Extensive compression changes in the spine as described. Guidance Fluoroscopy 08/21/16 00:00 IMPRESSION: SUCCESSFUL PLACEMENT OF A 5 FR DUAL LUMEN 41 CM PICC IN THE left basilic VEIN. Interventional Vascular Procedure 08/21/16 00:00 IMPRESSION: SUCCESSFUL PLACEMENT OF A 5 FR DUAL LUMEN 41 CM PICC IN THE left basilic VEIN. PICC Line Insertion 08/21/16 00:00 IMPRESSION: SUCCESSFUL PLACEMENT OF A 5 FR DUAL LUMEN 41 CM PICC IN THE left basilic VEIN. Assessment & Plan - Diagnosis (1) Proteus pneumonia Is this a current diagnosis for this admission?: Yes (2) Septicemia Is this a current diagnosis for this admission?: Yes (3) Squamous cell carcinoma of lung, stage I Qualifiers: Laterality: left Qualified Code(s): C34.92 - Malignant neoplasm of unspecified part of left bronchus or lung Is this a current diagnosis for this admission?: Yes (4) Pneumonia Qualifiers: Pneumonia type: due to unspecified organism Laterality: right Lung location: middle lobe of lung Qualified Code(s): J18.1 - Lobar pneumonia , unspecified organism Is this a current diagnosis for this admission?: Yes (5) Very severe chronic obstructive pulmonary disease Is this a current diagnosis for this admission?: Yes (6) GERD (gastroesophageal reflux disease) Qualifiers: Esophagitis presence: with esophagitis Qualified Code(s): K21.0 - Gastro-esophageal reflux disease with esophagitis Is this a current diagnosis for this admission?: Yes
--- NOTE | 2016-08-29 20:17 | PDOC TRANSFER SUMMARY ---
General - Admit/Disc Date/PCP Admission Date/Primary Care Provider: 08/18/16 17:20 NATACHA ENGLAND MD Discharge Date: 08/29/16 - Discharge Diagnosis (1) Proteus pneumonia Is this a current diagnosis for this admission?: Yes (2) Septicemia Is this a current diagnosis for this admission?: Yes (3) Squamous cell carcinoma of lung, stage I Is this a current diagnosis for this admission?: Yes (4) Pneumonia Is this a current diagnosis for this admission?: Yes (5) Very severe chronic obstructive pulmonary disease Is this a current diagnosis for this admission?: Yes (6) GERD (gastroesophageal reflux disease) Is this a current diagnosis for this admission?: Yes - Additional Information Resuscitation Status: Full Code Home Medications: Albuterol Sulfate [Proair HFA] 1 puff IH PRN PRN 10/08/14 Fluconazole [Diflucan] 100 mg PO DAILY 10/08/14 Prednisone [Deltasone 20 mg Tablet] 40 mg PO DAILY #0 tablet 03/13/15 Albuterol Sulfate [Proair HFA] 2 puff IH Q4HP PRN 05/23/16 Amlodipine Besylate [Norvasc 5 mg Tablet] 5 mg PO DAILY 05/23/16 Budesonide/Formoterol Fumarate [Symbicort HFA 160-4.5 mcg Inhaler 6 gm] 2 puff IH Q12 05/23/16 Clonazepam [Klonopin] 0.5 mg PO Q12 05/23/16 Clonidine HCl 0.1 mg PO Q12 05/23/16 Ergocalciferol (Vitamin D2) [Drisdol 50,000 unit (1.25MG) Capsule] 50,000 unit PO [id number] 05/23/16 Levocetirizine Dihydrochloride [Xyzal 5 mg Tablet] 5 mg PO QHS 05/23/16 Omeprazole 40 mg PO DAILY 05/23/16 Oxycodone HCl/Acetaminophen [Percocet 10-325 mg Tablet] 1 tab PO Q6HP PRN Pregabalin [Lyrica 75 mg Capsule] 75 mg PO Q8 05/23/16 Tiotropium [place] [Spiriva Handihaler 5 Cap/Kit (18 Mcg/Cap)] 1 cap IH DAILY Atorvastatin Calcium [Lipitor 10 mg Tablet] 10 mg PO QHS 08/19/16 Citalopram Hydrobromide [Celexa 20 mg Tablet] 20 mg PO DAILY 08/19/16 Losartan Potassium [Cozaar 100 mg Tablet] 100 mg PO DAILY 08/19/16 Mirtazapine [Remeron 15 mg Tablet] 7.5 mg PO QHS 08/19/16 History of Present Illness Admission Date/PCP: 08/18/16 17:20 NATACHA ENGLAND MD History of Present Illness: HUNTER GRANADOS is a 71 year old female of Dr England resident at [facility] who was brought to the ED by EMS due to change in mental status that became more noticeable about lunch time. There was reported associated hypoxemia but patient has been supplemental oxygen dependent due to her end stage COPD and lung cancer. There was reported episode of fever at the [facility] by daughter who was present at bedside at the time of my evaluation. Patient had temperature as high as 100.1F and a dose of Acetaminophen last night with rectal temperature reading about 99.9F as per daughter's account. No reported episode of nausea, vomiting, productive coughing or chest pain. She was recently treated for pneumonia. Her initial evaluation in the ED was suggestive of significant hypoxemia with hypercapnia, respiratory acidosis and hyperkalemnia. Her laboratory evaluation did revealed renal indices suggestive of acute renal injury with BUN at 82 and serum creatinine at 2.97. She did received protocol treatment for hyperkalemia and started on BiPAP support with supplemental oxygen for respiratory acidosis and hypoxemia management. In view of her presentation with associated leukocytosis there was concern for possible occult infectious process. She was started on IV Vancomycin and Levofloxacin therapy. She will be admitted to ICU for further evaluation and management. Hospital Course Hospital Course: Patient was admitted into the hospital for acute COPD exacerbation and pneumonia , sputum culture grew Proteus, she was treated with IV antibiotic including cefazolin She also had IV Solu-Medrol. The chest x-ray and the CT of the chest were negative for any acute infiltrate, consolidation to suggest pneumonia. The sputum culture grew Proteus, CT chest did not show any significant increase in the size of the malignant neoplasm in the left lung. Patient responds to treatment she feels much better, plan is to transfer back to [facility] for continued rehabilitation. Physical Exam Vital Signs: Temp Pulse Resp BP Pulse Ox 97.3 F 82 20 129/65 H 99 08/29/16 16:00 08/29/16 16:00 08/29/16 16:00 08/29/16 16:00 08/29/16 16:00 Intake & Output 08/28/16 08/29/16 08/30/16 06:59 06:59 06:59 Intake Total 7358 689 7492 Output Total 1550 Balance -757 186 6206 Weight 78.4 kg General appearance: PRESENT: no acute distress Eye exam: PRESENT: PERRLA Respiratory exam: PRESENT: clear to auscultation ghulam Cardiovascular exam: PRESENT: +S1, +S2 GI/Abdominal exam: PRESENT: soft Neurological exam: PRESENT: alert, CN II-XII grossly intact Results Laboratory Results: 08/22/16 08:15 08/25/16 11:50 08/18/16 08/18/16 19:06 19:06 Creatine Kinase 490 H CK-MB (CK-2) 7.77 H Troponin I < 0.012 Impressions: Chest X-Ray 08/18/16 14:13 IMPRESSION: NO ACUTE RADIOGRAPHIC FINDING IN THE CHEST. NO SIGNIFICANT CHANGE FROM PRIOR IMAGING INCLUDING LEFT LOWER LOBE NODULE. Chest CT 08/21/16 00:00 IMPRESSION: 1. Pulmonary nodules are relatively stable. 2. There is pleural/parenchymal scarring. 3. The pleural effusions have resolved. 4. Aortic and coronary atherosclerosis. 5. Extensive compression changes in the spine as described. Guidance Fluoroscopy 08/21/16 00:00 IMPRESSION: SUCCESSFUL PLACEMENT OF A 5 FR DUAL LUMEN 41 CM PICC IN THE left basilic VEIN. Interventional Vascular Procedure 08/21/16 00:00 IMPRESSION: SUCCESSFUL PLACEMENT OF A 5 FR DUAL LUMEN 41 CM PICC IN THE left basilic VEIN. PICC Line Insertion 08/21/16 00:00
[2016-08-29] MEDS: MIRTAZAPINE 15 MG TABLET PO SCH (22:15)
[2016-08-29] MEDS: ATORVASTATIN CALCIUM 10 MG TABLET PO SCH (22:15)
[2016-08-29] MEDS: CETIRIZINE 5 MG TABLET PO SCH (22:15)
[2016-08-30] MEDS: CEFAZOLIN 1 GM/D5W RTU 1 GM/50 ML RTUPB IV SCH ×2 (05:16→13:38)
[2016-08-30] MEDS: PREGABALIN 75 MG CAPSULE PO SCH ×2 (05:18→13:41)
[2016-08-30] MEDS: METHYLPREDNISOLONE INJ 40 MG/1 ML SDV IV SCH ×2 (05:18→13:38)
[2016-08-30] MEDS: LANSOPRAZOLE 30 MG TAB.RAP.DR PO SCH (05:20)
[2016-08-30] MEDS: OXYCODONE HCL IR 5 MG TABLET PO PRN ×2 (07:40→13:41)
[2016-08-30] MEDS: ENOXAPARIN SODIUM INJ 30 MG/0.3 ML DISP.SYRIN SUBCUT SCH (07:42)
[2016-08-30] MEDS: OXYCODONE-ACETAMINOPHEN 5-325 MG TABLET PO PRN ×2 (07:42→13:41)
[2016-08-30] MEDS: CLONIDINE HCL 0.1 MG TABLET PO SCH (10:45)
[2016-08-30] MEDS: CLONAZEPAM 1 MG TABLET PO SCH (10:47)
[2016-08-30] MEDS: AMLODIPINE BESYLATE 5 MG TABLET PO SCH (10:48)
[2016-08-30] MEDS: LOSARTAN POTASSIUM 50 MG TABLET PO SCH (10:48)
[2016-08-30] MEDS: CITALOPRAM HYDROBROMIDE 20 MG TABLET PO SCH (10:48)
[2016-08-30] MEDS: TIOTROPIUM BROMIDE DPI 5 CAP/KIT (18 MCG/CAP) IH SCH (10:49)
[2016-08-30] MEDS: BUDESONIDE/FORMOTEROL 160-4.5 MCG 60 PUFF/6 GM MDI IH SCH (10:49)
[2016-08-30] MEDS: NORMAL SALINE 10 ML SDV (SCHEDULED) IV SCH (10:50)
[2016-08-30 13:28] VITALS: BP 151/79
== END 2016-08-30 14:19 | DRG 871 ==
LOC: ER 14:06 → UNDOADMIN 16:37 → EH 16:37 → 3S 08-19 10:49
PROVIDERS: ADMIT Internal Medicine; ATTEND Internal Medicine
PROC: 5A09457 Assistance with Respiratory Ventilation, 24-96 Consecutive Hours, Continuous Positive Airway Pressure (ICD-10-PCS; principal; 2016-08-18)
PROC: 05HQ33Z Insertion of Infusion Device into Left External Jugular Vein, Percutaneous Approach (ICD-10-PCS; 2016-08-18)
PROC: 02HV33Z Insertion of Infusion Device into Superior Vena Cava, Percutaneous Approach (ICD-10-PCS; 2016-08-18)
PROC: B548ZZA Ultrasonography of Superior Vena Cava, Guidance (ICD-10-PCS; 2016-08-18)
DX: A41.9 Sepsis, unspecified organism (principal); J15.6 Pneumonia due to other Gram-negative bacteria; J96.21 Acute and chronic respiratory failure with hypoxia; C34.92 Malignant neoplasm of unspecified part of left bronchus or lung; J44.0 Chronic obstructive pulmonary disease with (acute) lower respiratory infection; J44.1 Chronic obstructive pulmonary disease with (acute) exacerbation; N17.9 Acute kidney failure, unspecified; Z99.81 Dependence on supplemental oxygen; E87.5 Hyperkalemia; K21.0 Gastro-esophageal reflux disease with esophagitis; D64.9 Anemia, unspecified; I10 Essential (primary) hypertension; E78.5 Hyperlipidemia, unspecified; M19.90 Unspecified osteoarthritis, unspecified site; F32.9 Major depressive disorder, single episode, unspecified; Z66 Do not resuscitate; Z79.899 Other long term (current) drug therapy; Z88.0 Allergy status to penicillin; Z86.14 Personal history of Methicillin resistant Staphylococcus aureus infection; Z90.49 Acquired absence of other specified parts of digestive tract; Z90.710 Acquired absence of both cervix and uterus
CPT/HCPCS: 36415; 36430; 36569; 71010; 71250; 76937; 77001; 80053; 80202; 81001; 82550; 82553; 82565; 82803; 82962; 83605; 84484; 85025; 85027; 85610; 85730; 86850; 86900; 86901; 86920; 87040; 87070; 87077; 87086; 87186; 87205; 93005; 93010; 94640; 94660; 96374; 96375; 99291; J0610; J0690; J1642; J1650; J1720; J1815; J1956; J2920; J2930; J3370; J3490; J7030; J7040; J7060; J7620; P9016; S0164

== ENCOUNTER 2016-10-12 15:27 | Emergency (ER) | payer MEDICARE, MEDICAID ==
--- NOTE | 2016-10-12 15:41 | ER Document Report ---
ED General - General Stated Complaint: UNRESPONSIVE Time Seen by Provider: 10/12/16 15:31 Mode of Arrival: Stretcher Information source: Patient, Emergency Med Personnel TRAVEL OUTSIDE OF THE [place] IN LAST 30 DAYS: No - HPI Patient complains to provider of: decreased responsiveness Onset: This morning Onset/Duration: Sudden Quality of pain: No pain Associated symptoms: Productive cough Notes: Patient is a 71-year-old female [facility] for decreased responsiveness, patient also has a wet cough, she has no complaints at time of evaluation - Related Data Allergies/Adverse Reactions: Penicillins Allergy (Verified 08/23/16 14:32) Hives Past Medical History - General Information source: Emergency Med Personnel - Social History Smoking Status: Unknown if Ever Smoked Family History: None - Past Medical History Cardiac Medical History: Reports: Hx Hypercholesterolemia, Hx Hypertension Denies: Hx Coronary Artery Disease, Hx Heart Attack Pulmonary Medical History: Reports: Hx Asthma, Hx Bronchitis, Hx COPD, Hx Pneumonia - gram-negative and MRSA pneumonia Denies: Hx Tuberculosis Neurological Medical History: Denies: Hx Cerebrovascular Accident, Hx Seizures Renal/ Medical History: Denies: Hx Peritoneal Dialysis Malignancy Medical History: Reports: Hx Lung Cancer - Squamous cell lung cancer , stage I GI Medical History: Reports: Hx Gastroesophageal Reflux Disease Musculoskeltal Medical History: Reports Hx Arthritis - RA all over Psychiatric Medical History: Reports: Hx Anxiety, Hx Depression Infectious Medical History: Reports: Hx MRSA - History of MRSA pneumonia Past Surgical History: Reports: Hx Abdominal Surgery - gastric bypass, sbo, Hx Appendectomy, Hx Cholecystectomy, Hx Hysterectomy, Hx Orthopedic Surgery - Immunizations Immunizations up to date: Yes Hx Diphtheria, Pertussis, Tetanus Vaccination: No Hx Pneumococcal Vaccination: 04/14/12 Review of Systems - Review of Systems Constitutional: No symptoms reported EENT: No symptoms reported Cardiovascular: No symptoms reported Respiratory: See HPI Gastrointestinal: No symptoms reported Genitourinary: No symptoms reported Female Genitourinary: No symptoms reported Musculoskeletal: No symptoms reported Skin: No symptoms reported Hematologic/Lymphatic: No symptoms reported Neurological/Psychological: Confusion -: Yes All other systems reviewed and negative Physical Exam - Vital signs Vitals: Pulse Ox 98 10/12/16 15:32 Interpretation: Normal - General General appearance: Appears well, Alert - HEENT Head: Normocephalic, Atraumatic Eyes: Normal Pupils: PERRL - Respiratory Respiratory status: No respiratory distress Chest status: Nontender Breath sounds: Productive cough, Rhonchi Chest palpation: Normal - Cardiovascular Rhythm: Regular Heart sounds: Normal auscultation Murmur: No - Abdominal Inspection: Normal Distension: No distension Bowel sounds: Normal Tenderness: Nontender Organomegaly: No organomegaly - Back Back: Normal, Nontender - Extremities General upper extremity: Normal inspection, Nontender, Normal color, Normal ROM , Normal temperature General lower extremity: Normal inspection, Nontender, Normal color, Normal ROM , Normal temperature, Normal weight bearing. No: Nissa's sign - Neurological Neuro grossly intact: Yes Cognition: Normal Orientation: AAOx4 Jorge Coma Scale Eye Opening: Spontaneous Jorge Coma Scale Verbal: Oriented Jorge Coma Scale Motor: Obeys Commands [place] Coma Scale Total: 15 Speech: Normal Motor strength normal: LUE, RUE, LLE, RLE Sensory: Normal - Psychological Associated symptoms: Normal affect, Normal mood - Skin Skin Temperature: Warm Skin Moisture: Dry Skin Color: Normal Course - Re-evaluation Re-evalutation: 10/12/16 18:58 Patient was discussed with , who knows patient well, I reviewed labs , imaging findings, vital signs, he recommends patient received a IV fluid bolus and be [facility], symptoms likely related to polypharmacy - Vital Signs Vital signs: Temp Pulse Resp BP Pulse Ox 22 H 98/70 L 97 10/12/16 18:00 10/12/16 18:00 10/12/16 18:00 - Laboratory Result Diagrams: 10/12/16 16:40 10/12/16 16:40 Laboratory results interpreted by me: 10/12/16 10/12/16 10/12/16 16:40 16:40 17:55 WBC 12.9 H RBC 3.59 L Hgb 9.9 L Hct 32.6 L MCHC 30.4 L RDW 16.1 H Absolute Eosinophils 0.7 H Sodium 145.3 H BUN 44 H Est GFR (Non-Af Amer) 49 L Urine Blood SMALL H - Diagnostic Test Radiology reviewed: Image reviewed, Reports reviewed - EKG Interpretation by Me EKG shows normal: Sinus rhythm Rate: Normal Rhythm: NSR Discharge - Discharge Clinical Impression: COPD exacerbation Condition: Stable Disposition: SNF Referrals: OJEBUOBOH,IBIKUNLE, MD [Primary Care Provider] - Follow up as needed
[2016-10-12] MEDS ORDERED: NORMAL SALINE 1000 ML 500 ML IV PRN (16:16)
--- NOTE | 2016-10-12 16:22 | RADIOLOGY REPORT (SQ) ---
EXAM DESCRIPTION: CHEST SINGLE VIEW COMPLETED DATE/TIME: 10/12/2016 4:00 pm REASON FOR STUDY: cough COMPARISON: 08/18/2016 and 08/21/2016 EXAM PARAMETERS: NUMBER OF VIEWS: One view. TECHNIQUE: Single frontal radiographic view of the chest acquired. RADIATION DOSE: NA LIMITATIONS: None. FINDINGS: LUNGS AND PLEURA: No new opacities, masses or pneumothorax. Blunting of the left costophr enic angle suggests a small pleural effusion. No pneumothorax. MEDIASTINUM AND HILAR STRUCTURES: No masses. Contour normal. HEART AND VASCULAR STRUCTURES: Heart normal in size. Normal vasculature. BONES: No acute findings. HARDWARE: Unchanged. OTHER: No other significant finding. IMPRESSION: Likely small left-sided pleural effusion. Otherwise stable radiographic appearance of t he chest. TECHNICAL DOCUMENTATION: JOB ID: [id number]
[2016-10-12] MEDS ORDERED: ALBUTEROL SULFATE 0.083% NEB 2.5 MG/3 ML AMPUL NEB ONE (16:51)
[2016-10-12 17:02] LABS: VENOUS BLOOD BASE EXCESS 2.3 mmol/L; VENOUS BLOOD PCO2 54.9 mmHg (35-63); VENOUS BLOOD PH 7.34 (7.30-7.42)
[2016-10-12 17:07] LABS: ABSOLUTE BASOPHILS # (AUTO) 0.1 10^3/uL (0.0-0.2); ABSOLUTE EOSINOPHILS # (AUTO) 0.7 10^3/uL (0.0-0.6); ABSOLUTE LYMPHOCYTES (AUTO) 3.1 10^3/uL (0.5-4.7); ABSOLUTE MONOCYTES (AUTO) 1.4 10^3/uL (0.1-1.4); ABSOLUTE NEUT (AUTO) 7.6 10^3/uL (1.7-8.2); BASOPHILS % (AUTO) 0.9 % (0-2); EOSINOPHILS % (AUTO) 5.1 % (0-6); HEMATOCRIT 32.6 % (36.0-47.0); HEMOGLOBIN 9.9 g/dL (12.0-15.5); HGB HCT DIFFERENCE -2.9; LYMPHOCYTES % (AUTO) 24.3 % (13-45); MEAN CORPUSCULAR HEMOGLOBIN 27.6 pg (27.0-33.4); MEAN CORPUSCULAR HGB CONC 30.4 g/dL (32.0-36.0); MEAN CORPUSCULAR VOLUME 91 fl (80-97); MONOCYTES % (AUTO) 10.6 % (3-13); RED BLOOD COUNT 3.59 10^6/uL (3.72-5.28); RED CELL DISTRIBUTION WIDTH 16.1 % (11.5-14.0); SEGMENTED NEUTROPHILS % (AUTO) 59.1 % (42-78); WHITE BLOOD COUNT 12.9 10^3/uL (4.0-10.5)
[2016-10-12 17:14] LABS: ALANINE AMINOTRANSFERASE 17 U/L (9-52); ALBUMIN 3.6 g/dL (3.5-5.0); ALKALINE PHOSPHATASE 105 U/L (38-126); ANION GAP 10 (5-19); ASPARTATE AMINO TRANSFERASE 21 U/L (14-36); BILIRUBIN,DIRECT 0.3 mg/dL (0.0-0.4); BILIRUBIN,TOTAL 0.6 mg/dL (0.2-1.3); BLOOD UREA NITROGEN 44 mg/dL (7-20); CALCIUM 10.2 mg/dL (8.4-10.2); CARBON DIOXIDE 28 mmol/L (22-30); CHLORIDE 107 mmol/L (98-107); CREATININE RESULT 1.09 mg/dL (0.52-1.25); GLUCOSE 79 mg/dL (75-110); SODIUM 145.3 mmol/L (137-145); TOTAL PROTEIN 7.5 g/dL (6.3-8.2)
[2016-10-12 18:22] LABS: APPEARANCE,URINE SLIGHTLY-CLOUDY; BILIRUBIN,URINE NEGATIVE (NEGATIVE); GLUCOSE, URINE NEGATIVE (NEGATIVE); KETONES,URINE NEGATIVE (NEGATIVE); LEUKOCYTE ESTERASE,URINE NEGATIVE (NEGATIVE); NITRITE,URINE NEGATIVE (NEGATIVE); PROTEIN,URINE NEGATIVE (NEGATIVE); UROBILINOGEN,URINE NEGATIVE mg/dL (<2.0)
[2016-10-12 22:05] VITALS: BP 105/56
--- NOTE | 2016-10-12 22:19 | EKG REPORT ---
SEVERITY:- ABNORMAL ECG - SINUS RHYTHM CONSIDER RIGHT VENTRICULAR HYPERTROPHY PROBABLE INFERIOR INFARCT, OLD : Confirmed by: Latoya Vasquez 12-Oct-2016 22:18:40
== END 2016-10-12 22:04 ==
LOC: ER 15:27
DX: J44.1 Chronic obstructive pulmonary disease with (acute) exacerbation (principal); I10 Essential (primary) hypertension; E78.00 Pure hypercholesterolemia, unspecified; Z88.0 Allergy status to penicillin; Z86.14 Personal history of Methicillin resistant Staphylococcus aureus infection; Z98.84 Bariatric surgery status; Z85.118 Personal history of other malignant neoplasm of bronchus and lung; Z90.49 Acquired absence of other specified parts of digestive tract; Z90.710 Acquired absence of both cervix and uterus
CPT/HCPCS: 93005; 99285; 51701; 36415; 87040; 87086; 82962; 85025; 80053; 81001; 82803; 71010; 93010; J7030

== ENCOUNTER 2016-10-16 14:03 | Inpatient (IN) | payer MEDICARE, MEDICAID ==
[2016-10-16] MEDS ORDERED: NORMAL SALINE 1000 ML 1,000 ML IV ONE (15:40)
[2016-10-16] MEDS ORDERED: NALOXONE HCL INJ/PF 0.4 MG/1 ML SDV IV ONE (15:52)
[2016-10-16 16:08] LABS: ABSOLUTE BASOPHILS # (AUTO) 0.1 10^3/uL (0.0-0.2); ABSOLUTE EOSINOPHILS # (AUTO) 0.4 10^3/uL (0.0-0.6); ABSOLUTE LYMPHOCYTES (AUTO) 2.7 10^3/uL (0.5-4.7); ABSOLUTE MONOCYTES (AUTO) 1.4 10^3/uL (0.1-1.4); ABSOLUTE NEUT (AUTO) 7.5 10^3/uL (1.7-8.2); EOSINOPHILS % (AUTO) 3.7 % (0-6); HEMATOCRIT 26.8 % (36.0-47.0); HEMOGLOBIN 8.4 g/dL (12.0-15.5); HGB HCT DIFFERENCE -1.6; LYMPHOCYTES % (AUTO) 22.1 % (13-45); MEAN CORPUSCULAR HEMOGLOBIN 28.3 pg (27.0-33.4); MEAN CORPUSCULAR HGB CONC 31.5 g/dL (32.0-36.0); MEAN CORPUSCULAR VOLUME 90 fl (80-97); MONOCYTES % (AUTO) 11.3 % (3-13); RED BLOOD COUNT 2.98 10^6/uL (3.72-5.28); RED CELL DISTRIBUTION WIDTH 15.9 % (11.5-14.0); SEGMENTED NEUTROPHILS % (AUTO) 61.9 % (42-78); WHITE BLOOD COUNT 12.1 10^3/uL (4.0-10.5)
[2016-10-16 16:12] LABS: ALANINE AMINOTRANSFERASE 19 U/L (9-52); ALBUMIN 2.8 g/dL (3.5-5.0); ALKALINE PHOSPHATASE 78 U/L (38-126); ANION GAP 10 (5-19); ASPARTATE AMINO TRANSFERASE 14 U/L (14-36); BILIRUBIN,DIRECT 0.4 mg/dL (0.0-0.4); BILIRUBIN,TOTAL 0.4 mg/dL (0.2-1.3); BLOOD UREA NITROGEN 43 mg/dL (7-20); CARBON DIOXIDE 24 mmol/L (22-30); CHLORIDE 108 mmol/L (98-107); CREATINE KINASE 44 U/L (30-135); CREATININE RESULT 1.43 mg/dL (0.52-1.25); GLUCOSE 88 mg/dL (75-110); LIPASE 112.8 U/L (23-300); POTASSIUM 4.8 mmol/L (3.6-5.0); SODIUM 142.2 mmol/L (137-145); TOTAL PROTEIN 5.9 g/dL (6.3-8.2)
[2016-10-16 16:19] LABS: VENOUS BLOOD BASE EXCESS 0.3 mmol/L; VENOUS BLOOD HCO3 26.5 mmol/L (20-32); VENOUS BLOOD PH 7.33 (7.30-7.42)
[2016-10-16 16:25] LABS: TROPONIN I < 0.012 ng/mL
--- NOTE | 2016-10-16 16:36 | RADIOLOGY REPORT (SQ) ---
EXAM DESCRIPTION: CHEST SINGLE VIEW COMPLETED DATE/TIME: 10/16/2016 4:05 pm REASON FOR STUDY: SOB COMPARISON: 10/12/2016 EXAM PARAMETERS: NUMBER OF VIEWS: One view. TECHNIQUE: Single frontal radiographic view of the chest acquired. RADIATION DOSE: NA LIMITATIONS: None. FINDINGS: LUNGS AND PLEURA: No opacities, masses or pneumothorax. Again there is some blunting of t he left costophrenic angle suggesting a small left pleural effusion. MEDIASTINUM AND HILAR STRUCTURES: No masses. Contour normal. HEART AND VASCULAR STRUCTURES: Heart normal in size. Normal vasculature. BONES: No acute findings. HARDWARE: Surgical clips appear unchanged. OTHER: No other significant finding. IMPRESSION: No significant interval change. Small left pleural effusion. Other findings as noted a kenney. TECHNICAL DOCUMENTATION: JOB ID: [id number]
[2016-10-16 19:24] LABS: APPEARANCE,URINE CLEAR; BILIRUBIN,URINE NEGATIVE (NEGATIVE); GLUCOSE, URINE NEGATIVE (NEGATIVE); KETONES,URINE NEGATIVE (NEGATIVE)
[2016-10-16 19:25] LABS: BACTERIA,URINE TRACE /HPF; LEUKOCYTE ESTERASE,URINE NEGATIVE (NEGATIVE); NITRITE,URINE NEGATIVE (NEGATIVE); PROTEIN,URINE NEGATIVE (NEGATIVE); RBC,URINE 0-1 /HPF; URINE SPECIFIC GRAVITY 1.009; UROBILINOGEN,URINE NEGATIVE mg/dL (<2.0); WBC,URINE 0-1 /HPF
[2016-10-16] MEDS ORDERED: NORMAL SALINE 1000 ML 1,000 ML IV PRN (19:45)
--- NOTE | 2016-10-16 19:45 | ER Document Report ---
ED Blood Pressure Problem - General Chief Complaint: Low Blood Pressure Stated Complaint: BLOOD PRESSURE PROBLEMS Time Seen by Provider: 10/16/16 15:40 Notes: Patient is a 71-year-old female who presents from [facility] after she was having increased somnolence for the past 2 hours. According to the daughter at bedside, she has had this in the past and improved spontaneously. She was seen here 5 days ago for similar complaints he had a negative workup. Her initial BP at [facility] was 68/42 when EMS arrived. No new medication adjustments. Patient will briefly awaken to voice fall back asleep. Unable to provide any additional history. TRAVEL OUTSIDE OF THE [place] IN LAST 30 DAYS: No - Related Data Allergies/Adverse Reactions: Penicillins Allergy (Verified 08/23/16 14:32) Hives Past Medical History - General Information source: Relative - Daughter, Emergency Med Personnel - Social History Smoking Status: Never Smoker Chew tobacco use (# tins/day): No Frequency of alcohol use: None Drug Abuse: None Family History: None - Past Medical History Cardiac Medical History: Reports: Hx Hypercholesterolemia, Hx Hypertension Denies: Hx Coronary Artery Disease, Hx Heart Attack Pulmonary Medical History: Reports: Hx Asthma, Hx Bronchitis, Hx COPD, Hx Pneumonia - gram-negative and MRSA pneumonia Denies: Hx Tuberculosis Neurological Medical History: Denies: Hx Cerebrovascular Accident, Hx Seizures Renal/ Medical History: Denies: Hx Peritoneal Dialysis Malignancy Medical History: Reports: Hx Lung Cancer - Squamous cell lung cancer , stage I GI Medical History: Reports: Hx Gastroesophageal Reflux Disease Musculoskeltal Medical History: Reports Hx Arthritis - RA all over Psychiatric Medical History: Reports: Hx Anxiety, Hx Depression Infectious Medical History: Reports: Hx MRSA - History of MRSA pneumonia Past Surgical History: Reports: Hx Abdominal Surgery - gastric bypass, sbo, Hx Appendectomy, Hx Cholecystectomy, Hx Hysterectomy, Hx Orthopedic Surgery - Immunizations Immunizations up to date: Yes Hx Diphtheria, Pertussis, Tetanus Vaccination: No Hx Pneumococcal Vaccination: 04/14/12 Review of Systems - Review of Systems -: Yes ROS unobtainable due to patient's medical condition Physical Exam - Vital signs Vitals: BP 84/46 L 10/16/16 14:41 - Notes Notes: PHYSICAL EXAMINATION: GENERAL: In no acute distress. Somnolent HEAD: Atraumatic, normocephalic. EYES: Pupils equal round and reactive to light, extraocular movements intact, sclera anicteric, conjunctiva are normal. ENT: nares patent, oropharynx clear without exudates. Moist mucous membranes. NECK: Normal range of motion, supple without lymphadenopathy LUNGS: Breath sounds clear to auscultation bilaterally and equal. No wheezes rales or rhonchi. HEART: Regular rate and rhythm without murmurs ABDOMEN: Soft, nontender, normoactive bowel sounds. No guarding, no rebound. No masses appreciated. EXTREMITIES: No pitting or edema. No cyanosis. NEUROLOGICAL: Moves all 4 extremities when stimulated. SKIN: Warm, Dry, normal turgor, no rashes or lesions noted. Course - Re-evaluation Re-evalutation: Patient with hypotension on arrival 68/40 that improved to 101/61. Patient will awaken to voice but quickly falls asleep. Labs and urine are unremarkable. X-ray does not show pneumonia. Daughter said that has been no new medication adjustments. Narcan did not change her mental status. Pt's head CT completed 4 days ago for similar complaints did not show any acute findings. This is her second visit this week for this and daughter does not feel comfortable taking her home due to the increased somnolence. 10/16/16 19:[address] England and he has accepted patient to telemetry as Observation status. Repeat Head CT pending. - Vital Signs Vital signs: Temp Pulse Resp BP Pulse Ox 19 95/60 L 100 10/16/16 19:01 10/16/16 19:01 10/16/16 19:01 - Laboratory Result Diagrams: 10/16/16 15:25 10/16/16 15:25 Laboratory results interpreted by me: 10/16/16 10/16/16 10/16/16 15:25 15:25 17:18 WBC 12.1 H RBC 2.98 L Hgb 8.4 L Hct 26.8 L MCHC 31.5 L RDW 15.9 H Chloride 108 H BUN 43 H Creatinine 1.43 H Est GFR ( Amer) 44 L Est GFR (Non-Af Amer) 36 L Lactic Acid 0.6 L Total Protein 5.9 L Albumin 2.8 L - Diagnostic Test Radiology reviewed: Image reviewed, Reports reviewed Radiology results interpreted by me: CXR: NAD Discharge - Discharge Clinical Impression: Altered mental state Qualifiers: Altered mental status type: somnolence Qualified Code(s): R40.0 - Somnolence Hypotension Qualifiers: Hypotension type: unspecified hypotension type Qualified Code(s): I95.9 - Hypotension, unspecified Condition: Stable Disposition: ADMITTED OBSERVATION Admitting Provider: Lenore Unit Admitted: Telemetry Referrals: NATACHA ENGLAND MD [Primary Care Provider] - Follow up as needed
--- NOTE | 2016-10-16 20:30 | EKG REPORT ---
SEVERITY:- ABNORMAL ECG - SINUS RHYTHM PROBABLE INFERIOR INFARCT, OLD : Confirmed by: Michael Olivier MD 16-Oct-2016 20:30:12
--- NOTE | 2016-10-16 21:04 | RADIOLOGY REPORT (SQ) ---
EXAM DESCRIPTION: CT HEAD WITHOUT COMPLETED DATE/TIME: 10/16/2016 8:18 pm REASON FOR STUDY: AMS COMPARISON: 09/27/2016 TECHNIQUE: Axial images acquired through the brain without intravenous contrast. Images reviewed wi th bone, brain and subdural windows. Images stored on PACS. All CT scanners at this facility use dose modulation, iterative reconstruction, and/or weight based d osing when appropriate to reduce radiation dose to as low as reasonably achievable (ALARA). [facility]: Dose Right [facility]: CareDose [facility]: Dose Right [facility]: Teradose 4D [facility]: Smart ViFlux RADIATION DOSE: Up-to-date CT equipment and radiation dose reduction techniques were employed. CTDIv ol: 64.6 - 67.0 mGy. DLP: 2479 mGy-cm. mGy. LIMITATIONS: None. FINDINGS: VENTRICLES: Prominent. CEREBRUM: No masses. No hemorrhage. No midline shift. Areas of low density in the white matter mos t likely due to chronic micro-vascular ischemic change. No evidence for acute infarction. CEREBELLUM: No masses. No hemorrhage. No alteration of density. No evidence for acute infarction. EXTRAAXIAL SPACES: Mild age-related involutional change. No fluid collections. No masses. ORBITS AND GLOBE: No intra- or extraconal masses. Normal contour of globe without masses. CALVARIUM: No fracture. PARANASAL SINUSES: No fluid or mucosal thickening. SOFT TISSUES: No mass or hematoma. OTHER: No other significant finding. IMPRESSION: MILD CHRONIC CHANGES OF ATROPHY AND MICROVASCULAR ISCHEMIA. NO ACUTE PROCESS. TECHNICAL DOCUMENTATION: JOB ID: [id number] Quality ID # [id number]: Final reports with documentation of one or more dose reduction techniques (e.g., Au tomated exposure control, adjustment of the mA and/or kV according to patient size, use of iterative reconstruction technique) 2010 [employer]- All Rights Reserved
[2016-10-16] MEDS ORDERED: LEVOFLOXACIN 750 MG/D5W RTU 750 MG/150 ML RTUPB IV SCH (22:00)
[2016-10-16 22:29] LABS: PROTHROMBIN TIME 14.6 SEC (11.4-15.4)
[2016-10-16 22:38] LABS: PARTIAL THROMBOPLASTIN TIME 39.8 SEC (23.5-35.8)
[2016-10-16 22:38] LABS: ARTERIAL BLOOD BASE EXCESS -1.8 mmol/L
[2016-10-16 22:39] LABS: LIPASE 109.4 U/L (23-300); MAGNESIUM 2.1 mg/dL (1.6-2.3); PHOSPHORUS 5.5 mg/dL (2.5-4.5)
[2016-10-16 22:55] LABS: CREATINE KINASE MB 2.27 ng/mL (<4.55)
[2016-10-16 23:04] LABS: TROPONIN I < 0.012 ng/mL
[2016-10-16 23:12] LABS: THYROID STIMULATING HORMONE 2.45 uIU/mL (0.47-4.68)
[2016-10-16] MEDS ORDERED: AZTREONAM INJ 1 GM VIAL ONE (23:59)
[2016-10-16] MEDS ORDERED: LEVOFLOXACIN 750 MG/D5W RTU 750 MG/150 ML RTUPB IV ONE (23:59)
[2016-10-17] MEDS: AZTREONAM 1 GM in DEXTROSE 5%-WATER 50 ML IV SCH ×3 (03:31→17:27)
[2016-10-17 04:19] LABS: ABSOLUTE BASOPHILS # (AUTO) 0.1 10^3/uL (0.0-0.2); ABSOLUTE EOSINOPHILS # (AUTO) 0.6 10^3/uL (0.0-0.6); ABSOLUTE LYMPHOCYTES (AUTO) 2.5 10^3/uL (0.5-4.7); ABSOLUTE NEUT (AUTO) 5.8 10^3/uL (1.7-8.2); BASOPHILS % (AUTO) 1.1 % (0-2); EOSINOPHILS % (AUTO) 5.6 % (0-6); HEMATOCRIT 26.6 % (36.0-47.0); HEMOGLOBIN 8.3 g/dL (12.0-15.5); HGB HCT DIFFERENCE -1.7; LYMPHOCYTES % (AUTO) 25.2 % (13-45); MEAN CORPUSCULAR HEMOGLOBIN 28.1 pg (27.0-33.4); MEAN CORPUSCULAR HGB CONC 31.4 g/dL (32.0-36.0); MEAN CORPUSCULAR VOLUME 90 fl (80-97); MONOCYTES % (AUTO) 10.3 % (3-13); RED BLOOD COUNT 2.96 10^6/uL (3.72-5.28); RED CELL DISTRIBUTION WIDTH 15.6 % (11.5-14.0); SEGMENTED NEUTROPHILS % (AUTO) 57.8 % (42-78)
[2016-10-17 04:47] LABS: ALANINE AMINOTRANSFERASE 21 U/L (9-52); ALBUMIN 2.7 g/dL (3.5-5.0); ALKALINE PHOSPHATASE 71 U/L (38-126); ANION GAP 9 (5-19); ASPARTATE AMINO TRANSFERASE 13 U/L (14-36); BILIRUBIN,DIRECT 0.3 mg/dL (0.0-0.4); BILIRUBIN,TOTAL 0.3 mg/dL (0.2-1.3); BLOOD UREA NITROGEN 34 mg/dL (7-20); CALCIUM 8.6 mg/dL (8.4-10.2); CARBON DIOXIDE 22 mmol/L (22-30); CHLORIDE 112 mmol/L (98-107); CHOLESTEROL 88.11 mg/dL (0-200); CREATINE KINASE 43 U/L (30-135); CREATININE RESULT 1.22 mg/dL (0.52-1.25); Direct HDL 28 mg/dL (>40); GLUCOSE 69 mg/dL (75-110); POTASSIUM 4.7 mmol/L (3.6-5.0); SODIUM 142.5 mmol/L (137-145); TOTAL PROTEIN 5.7 g/dL (6.3-8.2); TRIGLYCERIDES 90 mg/dL (<150)
[2016-10-17 04:58] LABS: CREATINE KINASE MB 2.35 ng/mL (<4.55); DIRECT LDL 40 mg/dL (<100)
[2016-10-17 05:14] LABS: TROPONIN I < 0.012 ng/mL
[2016-10-17] MEDS: IPRATROPIUM/ALBUTEROL 0.5-2.5 MG/3 ML AMPUL NEB PRN ×3 (07:46→19:50)
--- NOTE | 2016-10-17 07:57 | EKG REPORT ---
SEVERITY:- ABNORMAL ECG - SINUS RHYTHM FIRST DEGREE AV BLOCK LEFT ANTERIOR FASCICULAR BLOCK CONSIDER RIGHT VENTRICULAR HYPERTROPHY : Confirmed by: Michael Olivier MD 17-Oct-2016 07:57:10
[2016-10-17] MEDS ORDERED: IPRATROPIUM/ALBUTEROL 0.5-2.5 MG/3 ML AMPUL NEB PRN (08:27)
[2016-10-17] MEDS ORDERED: (PENDING PHARMACY ID) (Oxycodone Hcl/Acetaminophen [Oxycodone-Acetaminophen 10-325] 1 TAB) PO PRN (08:27)
[2016-10-17] MEDS ORDERED: ALBUTEROL SULFATE HFA (90 MCG/PUFF) 8 GM MDI (1 MDI/ER DISP) IH PRN (08:27)
[2016-10-17] MEDS: ENOXAPARIN SODIUM INJ 40 MG/0.4 ML DISP.SYRIN SUBCUT SCH (09:18)
[2016-10-17] MEDS: CLONAZEPAM 1 MG TABLET PO SCH ×2 (09:19→22:17)
[2016-10-17] MEDS: OXYCODONE HCL IR 5 MG TABLET PO PRN ×2 (09:19→16:10)
[2016-10-17] MEDS: CITALOPRAM HYDROBROMIDE 20 MG TABLET PO SCH (09:19)
[2016-10-17] MEDS: NYSTATIN OINTMENT 15 GM TUBE TP SCH (09:20)
[2016-10-17] MEDS: BUDESONIDE/FORMOTEROL 160-4.5 MCG 60 PUFF/6 GM MDI IH SCH ×2 (10:04→22:17)
[2016-10-17 11:55] LABS: CREATINE KINASE MB 2.49 ng/mL (<4.55)
[2016-10-17 12:14] LABS: TROPONIN I < 0.012 ng/mL
[2016-10-17] MEDS: OXYCODONE-ACETAMINOPHEN 5-325 MG TABLET PO PRN (13:28)
[2016-10-17] MEDS: PREGABALIN 75 MG CAPSULE PO SCH ×2 (13:28→22:15)
[2016-10-17] MEDS: NORMAL SALINE 1000 ML 1,000 ML IV PRN (16:09)
--- NOTE | 2016-10-17 18:20 | PDOC H&P ---
History of Present Illness Admission Date/PCP: 10/16/16 21:04 NATACHA ENGLAND MD History of Present Illness: HUNTER GRANADOS is a 71 year old female, she has multiple comorbid conditions including chronic obstructive lung disease, malignant neoplasm of the lung, multiple hospitalization, presently resides the long term she was transferred from the long term to the emergency room because of excessive somnolence and very low blood pressure. In the emergency room she was evaluated , she was treated with fluid, blood pressure did respond to fluid therapy. The emergency room physician stated that patient has had many emergency room visits in the last 2 days. She presented in a similar fashion about 2 days ago she was treated with intravenous fluid therapy, blood pressure was stabilized and she was transferred back to [facility] only for her to return back again to the emergency room with similar problems. I saw patient emergency room she was lethargic but responsive CT head was done there was no acute pathology that was demonstrated. Blood gas was done on FiO2 of 2 L, pH was 7.30 , PO2 57.5, PCO2 46.3 bicarbonate 24.1 this is consistent with acute respiratory failure with hypoxemia and hypercapnia, the blood test also showed hypoalbuminemia without proteinuria suggesting poor nutrition. 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 Past Medical History Cardiac Medical History: Reports: Hyperlipidema, Hypertension Pulmonary Medical History: Reports: Asthma, Bronchitis, Chronic Obstructive Pulmonary Disease (COPD), Pneumonia - gram-negative and MRSA pneumonia Malignancy Medical History: Reports: Lung Cancer - Squamous cell lung cancer, stage I GI Medical History: Reports: Gastroesophageal Reflux Disease Musculoskeltal Medical History: Reports: Arthritis - RA all over Psychiatric Medical History: Reports: Depression Hematology: Reports: Anemia Infectious Medical History: Reports: 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 Past Surgical History Past Surgical History: Reports: Appendectomy, Cholecystectomy, Hysterectomy, Orthopedic Surgery Social History Smoking Status: Former Smoker Frequency of Alcohol Use: None Hx Recreational Drug Use: No Drugs: None Hx Prescription Drug Abuse: No - Advance Directive Resuscitation Status: Do Not Resuscitate Family History Family History: None Parental Family History Reviewed: Yes Children Family History Reviewed: Yes Sibling(s) Family History Reviewed.: Yes Medication/Allergy Home Medications: Albuterol Sulfate [Proair HFA] 1 puff IH PRN PRN 06/27/15 Fluconazole [Diflucan] 100 mg PO DAILY 10/08/14 Prednisone [Deltasone 20 mg Tablet] 40 mg PO DAILY #0 tablet 03/13/15 Albuterol Sulfate [Ventolin Hfa] 2 puff IH Q4HP PRN 10/16/16 Amlodipine Besylate [Norvasc 5 mg Tablet] 5 mg PO DAILY 10/16/16 Atorvastatin Calcium [Lipitor 10 mg Tablet] 10 mg PO QHS 10/16/16 Budesonide/Formoterol Fumarate [Symbicort HFA 160-4.5 mcg Inhaler 6 gm] 1 puff IH Q12 10/16/16 Citalopram Hydrobromide [Celexa 20 mg Tablet] 20 mg PO DAILY 10/16/16 Clonazepam [Klonopin] 0.5 mg PO Q12 10/16/16 Clonidine HCl [Catapres 0.1 mg Tablet] 0.1 mg PO Q12 10/16/16 Ergocalciferol (Vitamin D2) [Vitamin D2] 50,000 unit PO [id number] 10/16/16 Ipratropium/Albuterol Sulfate [Iprat-Albut 0.5-3(2.5) mg/3 ml] 3 ml IH Q6HP PRN 10/16/16 Levocetirizine Dihydrochloride [Xyzal] 5 mg PO QHS 10/16/16 Losartan Potassium [Cozaar 100 mg Tablet] 100 mg PO DAILY 10/16/16 Mirtazapine [Remeron 15 mg Tablet] 7.5 mg PO QHS 10/16/16 Omeprazole 40 mg PO DAILY 10/16/16 Oxycodone HCl/Acetaminophen [Oxycodone-Acetaminophen 10-325] 1 tab PO Q6HP PRN 10/16/16 Pregabalin [Lyrica 75 mg Capsule] 75 mg PO Q8 10/16/16 Tiotropium [place] [Spiriva Handihaler 5 Cap/Kit (18 Mcg/Cap)] 1 puff IH DAILY 10/16/16 Allergies/Adverse Reactions: Penicillins Allergy (Verified 08/23/16 14:32) Hives Review of Systems Constitutional: PRESENT: fatigue, headache(s) Cardiovascular: PRESENT: dyspnea on exertion, palpitations Respiratory: PRESENT: cough Gastrointestinal: PRESENT: bloating, nausea Genitourinary: PRESENT: difficulty urinating Musculoskeletal: PRESENT: back pain Integumentary: ABSENT: rash, wounds Neurological: PRESENT: confusion, frequent falls, paresthesias Psychiatric: PRESENT: anxiety, depression Hematologic/Lymphatic: ABSENT: easy bleeding, easy bruising, lymphadenopathy Physical Exam Vital Signs: Temp Pulse Resp BP Pulse Ox 98.1 F 99 20 100/53 L 97 10/17/16 15:28 10/17/16 15:28 10/17/16 15:28 10/17/16 15:28 10/17/16 15:28 Intake & Output 10/16/16 10/17/16 10/18/16 06:59 06:59 06:59 Intake Total 240 841 Balance 240 841 Weight 71.1 kg 71.1 kg General appearance: PRESENT: severe distress Eye exam: PRESENT: PERRLA Ear exam: PRESENT: normal external ear exam Neck exam: PRESENT: full ROM Respiratory exam: PRESENT: rhonchi Cardiovascular exam: PRESENT: RRR, +S1, +S2 Vascular exam: PRESENT: normal capillary refill GI/Abdominal exam: PRESENT: normal bowel sounds, soft Rectal exam: PRESENT: deferred Neurological exam: PRESENT: alert, CN II-XII grossly intact Skin exam: PRESENT: erythema - Under the breast and the groin Results Laboratory Results: 10/17/16 04:02 10/17/16 04:02 10/16/16 10/16/16 10/16/16 22:11 22:11 22:11 WBC RBC Hgb Hct MCV MCH MCHC RDW Plt Count Seg Neutrophils % Lymphocytes % Monocytes % Eosinophils % Basophils % Absolute Neutrophils Absolute Lymphocytes Absolute Monocytes Absolute Eosinophils Absolute Basophils Carbonic Acid HCO3/H2CO3 Ratio ABG pH ABG pCO2 ABG pO2 ABG HCO3 ABG O2 Saturation ABG Base Excess FiO2 Sodium Potassium Chloride Carbon Dioxide Anion Gap BUN Creatinine Est GFR ( Amer) Est GFR (Non-Af Amer) Glucose Calcium Phosphorus 5.5 H Magnesium 2.1 Total Bilirubin AST ALT Alkaline Phosphatase Ammonia < 8.7 L Total Protein Albumin Triglycerides Cholesterol LDL Cholesterol Direct VLDL Cholesterol HDL Cholesterol Amylase 36 Lipase 109.4 TSH 2.45 Free T4 1.31 10/16/16 10/17/16 10/17/16 22:20 04:02 04:02 WBC 10.0 RBC 2.96 L Hgb 8.3 L Hct 26.6 L MCV 90 MCH 28.1 MCHC 31.4 L RDW 15.6 H Plt Count 321 Seg Neutrophils % 57.8 Lymphocytes % 25.2 Monocytes % 10.3 Eosinophils % 5.6 Basophils % 1.1 Absolute Neutrophils 5.8 Absolute Lymphocytes 2.5 Absolute Monocytes 1.0 Absolute Eosinophils 0.6 Absolute Basophils 0.1 Carbonic Acid 1.39 H HCO3/H2CO3 Ratio 17:1 ABG pH 7.33 L ABG pCO2 46.3 H ABG pO2 57.5 L ABG HCO3 24.1 ABG O2 Saturation 88.0 L ABG Base Excess -1.8 FiO2 2L Sodium 142.5 Potassium 4.7 Chloride 112 H Carbon Dioxide 22 Anion Gap 9 BUN 34 H Creatinine 1.22 Est GFR ( Amer) 52 L Est GFR (Non-Af Amer) 43 L Glucose 69 L Calcium 8.6 Phosphorus Magnesium Total Bilirubin 0.3 AST 13 L ALT 21 Alkaline Phosphatase 71 Ammonia Total Protein 5.7 L Albumin 2.7 L Triglycerides 90 Cholesterol 88.11 LDL Cholesterol Direct 40 VLDL Cholesterol 18.0 HDL Cholesterol 28 L Amylase Lipase TSH Free T4 10/16/16 10/16/16 10/17/16 22:11 22:11 04:02 Creatine Kinase 39 CK-MB (CK-2) 2.27 2.35 Troponin I < 0.012 < 0.012 10/17/16 10/17/16 10/17/16 04:02 10:53 10:53 Creatine Kinase 43 43 CK-MB (CK-2) 2.49 Troponin I < 0.012 Impressions: Chest X-Ray 10/16/16 15:41 IMPRESSION: No significant interval change. Small left pleural effusion. Other findings as noted above. Head CT 10/16/16 20:04 IMPRESSION: MILD CHRONIC CHANGES OF ATROPHY AND MICROVASCULAR ISCHEMIA. NO ACUTE PROCESS. Assessment & Plan - Diagnosis (1) Acute respiratory failure with hypoxia and hypercapnia Is this a current diagnosis for this admission?: YesPlan: The potential cause for the acute respiratory failure with hypoxemia and hypercapnia include pneumonia, lung cancer, COPD. She be treated empirically with IV antibiotic aztreonam, Levaquin (2) Squamous cell lung cancer Qualifiers: Laterality: left Qualified Code(s): C34.92 - Malignant neoplasm of unspecified part of left bronchus or lung Is this a current diagnosis for this admission?: YesPlan: He was diagnosed with lung cancer over a year ago, she is yet to receive any treatment for this lesion, the initial intent was for her to have [employer] radiation therapy but she has many intercurrent illness she never received therapy, she does not want to be a full code, she be made a DNR status (3) Hypotension Qualifiers: Hypotension type: unspecified hypotension type Qualified Code(s): I95.9 - Hypotension, unspecified Is this a current diagnosis for this admission?: YesPlan: The potential etiology of the hypotension include infection, dehydration, the blood pressure did respond to fluid therapy she is not requiring vasopressor to support blood pressure, she be treated in IMCU floor (4) Metabolic encephalopathy Is this a current diagnosis for this admission?: Yes (6) Chronic obstructive pulmonary disease Qualifiers: COPD type: unspecified COPD Qualified Code(s): J44.9 - Chronic obstructive pulmonary disease, unspecified Is this a current diagnosis for this admission?: Yes
--- NOTE | 2016-10-17 19:04 | PDOC PROGRESS REPORT ---
Subjective Progress Note for:: 10/17/16 Subjective:: The patient was seen by the bedside, she was admitted yesterday when she presented with acute respiratory failure with hypoxemia and hypercapnia. The blood culture is growing gram-positive cocci Physical Exam Vital Signs: Temp Pulse Resp BP Pulse Ox 98.1 F 99 20 100/53 L 97 10/17/16 15:28 10/17/16 15:28 10/17/16 15:28 10/17/16 15:28 10/17/16 15:28 Intake & Output 10/16/16 10/17/16 10/18/16 06:59 06:59 06:59 Intake Total 240 1441 Balance 240 1441 Weight 71.1 kg 71.1 kg General appearance: PRESENT: no acute distress Eye exam: PRESENT: PERRLA Respiratory exam: PRESENT: rhonchi Cardiovascular exam: PRESENT: +S1, +S2 GI/Abdominal exam: PRESENT: soft Neurological exam: PRESENT: alert, CN II-XII grossly intact Results Laboratory Results: 10/17/16 04:02 10/17/16 04:02 10/16/16 10/16/16 10/16/16 22:11 22:11 22:11 WBC RBC Hgb Hct MCV MCH MCHC RDW Plt Count Seg Neutrophils % Lymphocytes % Monocytes % Eosinophils % Basophils % Absolute Neutrophils Absolute Lymphocytes Absolute Monocytes Absolute Eosinophils Absolute Basophils Carbonic Acid HCO3/H2CO3 Ratio ABG pH ABG pCO2 ABG pO2 ABG HCO3 ABG O2 Saturation ABG Base Excess FiO2 Sodium Potassium Chloride Carbon Dioxide Anion Gap BUN Creatinine Est GFR ( Amer) Est GFR (Non-Af Amer) Glucose Calcium Phosphorus 5.5 H Magnesium 2.1 Total Bilirubin AST ALT Alkaline Phosphatase Ammonia < 8.7 L Total Protein Albumin Triglycerides Cholesterol LDL Cholesterol Direct VLDL Cholesterol HDL Cholesterol Amylase 36 Lipase 109.4 TSH 2.45 Free T4 1.31 10/16/16 10/17/16 10/17/16 22:20 04:02 04:02 WBC 10.0 RBC 2.96 L Hgb 8.3 L Hct 26.6 L MCV 90 MCH 28.1 MCHC 31.4 L RDW 15.6 H Plt Count 321 Seg Neutrophils % 57.8 Lymphocytes % 25.2 Monocytes % 10.3 Eosinophils % 5.6 Basophils % 1.1 Absolute Neutrophils 5.8 Absolute Lymphocytes 2.5 Absolute Monocytes 1.0 Absolute Eosinophils 0.6 Absolute Basophils 0.1 Carbonic Acid 1.39 H HCO3/H2CO3 Ratio 17:1 ABG pH 7.33 L ABG pCO2 46.3 H ABG pO2 57.5 L ABG HCO3 24.1 ABG O2 Saturation 88.0 L ABG Base Excess -1.8 FiO2 2L Sodium 142.5 Potassium 4.7 Chloride 112 H Carbon Dioxide 22 Anion Gap 9 BUN 34 H Creatinine 1.22 Est GFR ( Amer) 52 L Est GFR (Non-Af Amer) 43 L Glucose 69 L Calcium 8.6 Phosphorus Magnesium Total Bilirubin 0.3 AST 13 L ALT 21 Alkaline Phosphatase 71 Ammonia Total Protein 5.7 L Albumin 2.7 L Triglycerides 90 Cholesterol 88.11 LDL Cholesterol Direct 40 VLDL Cholesterol 18.0 HDL Cholesterol 28 L Amylase Lipase TSH Free T4 10/16/16 10/16/16 10/17/16 22:11 22:11 04:02 Creatine Kinase 39 CK-MB (CK-2) 2.27 2.35 Troponin I < 0.012 < 0.012 10/17/16 10/17/16 10/17/16 04:02 10:53 10:53 Creatine Kinase 43 43 CK-MB (CK-2) 2.49 Troponin I < 0.012 Impressions: Chest X-Ray 10/16/16 15:41 IMPRESSION: No significant interval change. Small left pleural effusion. Other findings as noted above. Head CT 10/16/16 20:04 IMPRESSION: MILD CHRONIC CHANGES OF ATROPHY AND MICROVASCULAR ISCHEMIA. NO ACUTE PROCESS. Assessment & Plan - Diagnosis (1) Acute respiratory failure with hypoxia and hypercapnia Is this a current diagnosis for this admission?: Yes (2) Squamous cell lung cancer Qualifiers: Laterality: left Qualified Code(s): C34.92 - Malignant neoplasm of unspecified part of left bronchus or lung Is this a current diagnosis for this admission?: Yes (3) Hypotension Qualifiers: Hypotension type: unspecified hypotension type Qualified Code(s): I95.9 - Hypotension, unspecified Is this a current diagnosis for this admission?: Yes (4) Metabolic encephalopathy Is this a current diagnosis for this admission?: Yes (6) Chronic obstructive pulmonary disease Qualifiers: COPD type: unspecified COPD Qualified Code(s): J44.9 - Chronic obstructive pulmonary disease, unspecified Is this a current diagnosis for this admission?: Yes - Plan Summary Plan Summary: She will continue present treatment with IV antibiotic, IV fluid
[2016-10-17] MEDS: MIRTAZAPINE 15 MG TABLET PO SCH (22:17)
[2016-10-18] MEDS: AZTREONAM 1 GM in DEXTROSE 5%-WATER 50 ML IV SCH ×3 (02:23→19:29)
[2016-10-18] MEDS: PREGABALIN 75 MG CAPSULE PO SCH ×3 (05:49→22:18)
[2016-10-18 07:09] LABS: ALANINE AMINOTRANSFERASE 21 U/L (9-52); ALBUMIN 3.4 g/dL (3.5-5.0); ALKALINE PHOSPHATASE 99 U/L (38-126); ANION GAP 13 (5-19); ASPARTATE AMINO TRANSFERASE 14 U/L (14-36); BILIRUBIN,DIRECT 0.3 mg/dL (0.0-0.4); BILIRUBIN,TOTAL 0.3 mg/dL (0.2-1.3); BLOOD UREA NITROGEN 17 mg/dL (7-20); CALCIUM 9.3 mg/dL (8.4-10.2); CARBON DIOXIDE 24 mmol/L (22-30); CHLORIDE 110 mmol/L (98-107); CREATININE RESULT 1.11 mg/dL (0.52-1.25); GLUCOSE 78 mg/dL (75-110); POTASSIUM 4.4 mmol/L (3.6-5.0); TOTAL PROTEIN 7.3 g/dL (6.3-8.2)
[2016-10-18] MEDS: IPRATROPIUM/ALBUTEROL 0.5-2.5 MG/3 ML AMPUL NEB PRN ×2 (07:50→19:51)
[2016-10-18 08:03] LABS: ABSOLUTE EOSINOPHILS # (AUTO) 0.5 10^3/uL (0.0-0.6); ABSOLUTE LYMPHOCYTES (AUTO) 2.5 10^3/uL (0.5-4.7); ABSOLUTE MONOCYTES (AUTO) 1.1 10^3/uL (0.1-1.4); ABSOLUTE NEUT (AUTO) 5.3 10^3/uL (1.7-8.2); BASOPHILS % (AUTO) 0.4 % (0-2); EOSINOPHILS % (AUTO) 5.6 % (0-6); HEMATOCRIT 30.2 % (36.0-47.0); HEMOGLOBIN 9.5 g/dL (12.0-15.5); HGB HCT DIFFERENCE -1.7; LYMPHOCYTES % (AUTO) 26.6 % (13-45); MEAN CORPUSCULAR HEMOGLOBIN 28.1 pg (27.0-33.4); MEAN CORPUSCULAR HGB CONC 31.3 g/dL (32.0-36.0); MEAN CORPUSCULAR VOLUME 90 fl (80-97); MONOCYTES % (AUTO) 11.3 % (3-13); RED BLOOD COUNT 3.36 10^6/uL (3.72-5.28); RED CELL DISTRIBUTION WIDTH 15.6 % (11.5-14.0); SEGMENTED NEUTROPHILS % (AUTO) 56.1 % (42-78); WHITE BLOOD COUNT 9.5 10^3/uL (4.0-10.5)
[2016-10-18] MEDS: CLONAZEPAM 1 MG TABLET PO SCH ×2 (10:47→22:18)
[2016-10-18] MEDS: CITALOPRAM HYDROBROMIDE 20 MG TABLET PO SCH (11:37)
[2016-10-18] MEDS: ENOXAPARIN SODIUM INJ 40 MG/0.4 ML DISP.SYRIN SUBCUT SCH (11:38)
[2016-10-18] MEDS: BUDESONIDE/FORMOTEROL 160-4.5 MCG 60 PUFF/6 GM MDI IH SCH ×2 (11:40→22:18)
[2016-10-18] MEDS: ALBUTEROL SULFATE HFA (90 MCG/PUFF) 200 PUFF/8.5 GM MDI IH PRN (11:40)
[2016-10-18] MEDS: NYSTATIN OINTMENT 15 GM TUBE TP SCH (11:41)
[2016-10-18] MEDS: NORMAL SALINE 1000 ML 1,000 ML IV PRN (15:01)
--- NOTE | 2016-10-18 19:24 | PDOC PROGRESS REPORT ---
Subjective Progress Note for:: 10/18/16 Subjective:: Patient is seen by the bedside, she was admitted because of sepsis Physical Exam Vital Signs: Temp Pulse Resp BP Pulse Ox 97.7 F 98 18 126/65 H 97 10/18/16 15:58 10/18/16 15:58 10/18/16 15:58 10/18/16 15:58 10/18/16 15:58 Intake & Output 10/17/16 10/18/16 10/19/16 06:59 06:59 06:59 Intake Total 240 2781 360 Balance 240 2781 360 Weight 71.1 kg 73.4 kg General appearance: PRESENT: no acute distress Eye exam: PRESENT: PERRLA Respiratory exam: PRESENT: wheezes Cardiovascular exam: PRESENT: +S1, +S2 GI/Abdominal exam: PRESENT: soft Neurological exam: PRESENT: alert, CN II-XII grossly intact Results Laboratory Results: 10/18/16 07:50 10/18/16 06:36 10/18/16 10/18/16 10/18/16 06:36 06:36 07:50 WBC Cancelled 9.5 RBC Cancelled 3.36 L Hgb Cancelled 9.5 L Hct Cancelled 30.2 L MCV Cancelled 90 MCH Cancelled 28.1 MCHC Cancelled 31.3 L RDW Cancelled 15.6 H Plt Count Cancelled 389 Seg Neutrophils % Cancelled 56.1 Lymphocytes % Cancelled 26.6 Monocytes % Cancelled 11.3 Eosinophils % Cancelled 5.6 Basophils % Cancelled 0.4 Absolute Neutrophils Cancelled 5.3 Absolute Lymphocytes Cancelled 2.5 Absolute Monocytes Cancelled 1.1 Absolute Eosinophils Cancelled 0.5 Absolute Basophils Cancelled 0.0 Sodium 147.0 H Potassium 4.4 Chloride 110 H Carbon Dioxide 24 Anion Gap 13 BUN 17 Creatinine 1.11 Est GFR ( Amer) 58 L Est GFR (Non-Af Amer) 48 L Glucose 78 Calcium 9.3 Total Bilirubin 0.3 AST 14 ALT 21 Alkaline Phosphatase 99 Total Protein 7.3 Albumin 3.4 L 10/16/16 10/16/16 10/17/16 22:11 22:11 04:02 Creatine Kinase 39 CK-MB (CK-2) 2.27 2.35 Troponin I < 0.012 < 0.012 10/17/16 10/17/16 10/17/16 04:02 10:53 10:53 Creatine Kinase 43 43 CK-MB (CK-2) 2.49 Troponin I < 0.012 Impressions: Chest X-Ray 10/16/16 15:41 IMPRESSION: No significant interval change. Small left pleural effusion. Other findings as noted above. Head CT 10/16/16 20:04 IMPRESSION: MILD CHRONIC CHANGES OF ATROPHY AND MICROVASCULAR ISCHEMIA. NO ACUTE PROCESS. Assessment & Plan - Diagnosis (1) Acute respiratory failure with hypoxia and hypercapnia Is this a current diagnosis for this admission?: Yes (2) Squamous cell lung cancer Qualifiers: Laterality: left Qualified Code(s): C34.92 - Malignant neoplasm of unspecified part of left bronchus or lung Is this a current diagnosis for this admission?: Yes (3) Hypotension Qualifiers: Hypotension type: unspecified hypotension type Qualified Code(s): I95.9 - Hypotension, unspecified Is this a current diagnosis for this admission?: Yes (4) Metabolic encephalopathy Is this a current diagnosis for this admission?: Yes (6) Chronic obstructive pulmonary disease Qualifiers: COPD type: unspecified COPD Qualified Code(s): J44.9 - Chronic obstructive pulmonary disease, unspecified Is this a current diagnosis for this admission?: Yes - Plan Summary Plan Summary: She will continue present treatment
[2016-10-18] MEDS: OXYCODONE HCL IR 5 MG TABLET PO PRN (19:30)
[2016-10-18] MEDS: LEVOFLOXACIN 750 MG/D5W RTU 750 MG/150 ML RTUPB IV SCH (22:18)
[2016-10-18] MEDS: MIRTAZAPINE 15 MG TABLET PO SCH (22:18)
[2016-10-19] MEDS: AZTREONAM 1 GM in DEXTROSE 5%-WATER 50 ML IV SCH ×3 (02:44→18:20)
[2016-10-19] MEDS: PREGABALIN 75 MG CAPSULE PO SCH ×3 (06:30→21:55)
[2016-10-19 06:46] LABS: ABSOLUTE BASOPHILS # (AUTO) 0.1 10^3/uL (0.0-0.2); ABSOLUTE EOSINOPHILS # (AUTO) 0.5 10^3/uL (0.0-0.6); ABSOLUTE LYMPHOCYTES (AUTO) 2.6 10^3/uL (0.5-4.7); ABSOLUTE NEUT (AUTO) 5.5 10^3/uL (1.7-8.2); BASOPHILS % (AUTO) 0.7 % (0-2); EOSINOPHILS % (AUTO) 4.8 % (0-6); HEMATOCRIT 30.5 % (36.0-47.0); HEMOGLOBIN 9.6 g/dL (12.0-15.5); HGB HCT DIFFERENCE -1.7; MEAN CORPUSCULAR HEMOGLOBIN 27.8 pg (27.0-33.4); MEAN CORPUSCULAR HGB CONC 31.3 g/dL (32.0-36.0); MEAN CORPUSCULAR VOLUME 89 fl (80-97); MONOCYTES % (AUTO) 10.5 % (3-13); RED BLOOD COUNT 3.44 10^6/uL (3.72-5.28); RED CELL DISTRIBUTION WIDTH 15.5 % (11.5-14.0); WHITE BLOOD COUNT 9.7 10^3/uL (4.0-10.5)
[2016-10-19 07:05] LABS: ALANINE AMINOTRANSFERASE 26 U/L (9-52); ALBUMIN 2.8 g/dL (3.5-5.0); ALKALINE PHOSPHATASE 84 U/L (38-126); ANION GAP 8 (5-19); ASPARTATE AMINO TRANSFERASE 12 U/L (14-36); BILIRUBIN,DIRECT 0.3 mg/dL (0.0-0.4); BILIRUBIN,TOTAL 0.3 mg/dL (0.2-1.3); BLOOD UREA NITROGEN 10 mg/dL (7-20); CALCIUM 9.1 mg/dL (8.4-10.2); CARBON DIOXIDE 27 mmol/L (22-30); CHLORIDE 110 mmol/L (98-107); CREATININE RESULT 0.85 mg/dL (0.52-1.25); GLUCOSE 75 mg/dL (75-110); SODIUM 144.8 mmol/L (137-145); TOTAL PROTEIN 5.9 g/dL (6.3-8.2)
[2016-10-19] MEDS: IPRATROPIUM/ALBUTEROL 0.5-2.5 MG/3 ML AMPUL NEB PRN (08:33)
[2016-10-19] MEDS: CLONAZEPAM 1 MG TABLET PO SCH ×2 (11:24→21:55)
[2016-10-19] MEDS: CITALOPRAM HYDROBROMIDE 20 MG TABLET PO SCH (11:43)
[2016-10-19] MEDS: ENOXAPARIN SODIUM INJ 40 MG/0.4 ML DISP.SYRIN SUBCUT SCH (11:44)
[2016-10-19] MEDS: NYSTATIN OINTMENT 15 GM TUBE TP SCH (11:44)
[2016-10-19] MEDS: BUDESONIDE/FORMOTEROL 160-4.5 MCG 60 PUFF/6 GM MDI IH SCH ×2 (11:44→21:55)
[2016-10-19] MEDS: ALBUTEROL SULFATE HFA (90 MCG/PUFF) 200 PUFF/8.5 GM MDI IH PRN (11:44)
--- NOTE | 2016-10-19 15:11 | PDOC PROGRESS REPORT ---
Subjective Progress Note for:: 10/19/16 Subjective:: pt is doing fair nocp no sob no fever Physical Exam Vital Signs: Temp Pulse Resp BP Pulse Ox 98.4 F 105 H 16 125/71 96 10/19/16 07:26 10/19/16 14:00 10/19/16 08:33 10/19/16 07:26 10/19/16 08:33 Intake & Output 10/18/16 10/19/16 10/20/16 06:59 06:59 06:59 Intake Total 2781 2760 240 Balance 2781 2760 240 Weight 73.4 kg 70 kg General appearance: PRESENT: no acute distress, well-developed, well-nourished Head exam: PRESENT: atraumatic, normocephalic Eye exam: PRESENT: conjunctiva pink, EOMI, PERRLA. ABSENT: scleral icterus Ear exam: PRESENT: normal external ear exam Mouth exam: PRESENT: moist, tongue midline Neck exam: PRESENT: full ROM. ABSENT: carotid bruit, JVD, lymphadenopathy, thyromegaly Respiratory exam: PRESENT: decreased breath sounds Cardiovascular exam: PRESENT: RRR. ABSENT: diastolic murmur, rubs, systolic murmur Pulses: PRESENT: normal dorsalis pedis pul, +2 pedal pulses bilateral Vascular exam: PRESENT: normal capillary refill GI/Abdominal exam: PRESENT: normal bowel sounds, soft. ABSENT: distended, guarding, mass, organolmegaly, rebound, tenderness Rectal exam: PRESENT: deferred Neurological exam: PRESENT: alert, awake, oriented to person. ABSENT: motor sensory deficit Psychiatric exam: PRESENT: appropriate affect, normal mood. ABSENT: homicidal ideation, suicidal ideation Skin exam: PRESENT: dry, intact, warm. ABSENT: cyanosis, rash Results Laboratory Results: 10/19/16 06:32 10/19/16 06:32 10/19/16 10/19/16 06:32 06:32 WBC 9.7 RBC 3.44 L Hgb 9.6 L Hct 30.5 L MCV 89 MCH 27.8 MCHC 31.3 L RDW 15.5 H Plt Count 392 Seg Neutrophils % 57.0 Lymphocytes % 27.0 Monocytes % 10.5 Eosinophils % 4.8 Basophils % 0.7 Absolute Neutrophils 5.5 Absolute Lymphocytes 2.6 Absolute Monocytes 1.0 Absolute Eosinophils 0.5 Absolute Basophils 0.1 Sodium 144.8 Potassium 4.0 Chloride 110 H Carbon Dioxide 27 Anion Gap 8 BUN 10 Creatinine 0.85 Est GFR ( Amer) > 60 Est GFR (Non-Af Amer) > 60 Glucose 75 Calcium 9.1 Total Bilirubin 0.3 AST 12 L ALT 26 Alkaline Phosphatase 84 Total Protein 5.9 L Albumin 2.8 L 10/16/16 10/16/16 10/17/16 22:11 22:11 04:02 Creatine Kinase 39 CK-MB (CK-2) 2.27 2.35 Troponin I < 0.012 < 0.012 10/17/16 10/17/16 10/17/16 04:02 10:53 10:53 Creatine Kinase 43 43 CK-MB (CK-2) 2.49 Troponin I < 0.012 Impressions: Chest X-Ray 10/16/16 15:41 IMPRESSION: No significant interval change. Small left pleural effusion. Other findings as noted above. Head CT 10/16/16 20:04 IMPRESSION: MILD CHRONIC CHANGES OF ATROPHY AND MICROVASCULAR ISCHEMIA. NO ACUTE PROCESS. Assessment & Plan - Diagnosis (1) Acute respiratory failure with hypoxia and hypercapnia Is this a current diagnosis for this admission?: YesPlan: cont neb rx (3) Chronic obstructive lung disease Qualifiers: COPD type: unspecified COPD Qualified Code(s): J44.9 - Chronic obstructive pulmonary disease, unspecified Is this a current diagnosis for this admission?: YesPlan: cont curr med (4) Pneumonia Qualifiers: Pneumonia type: due to unspecified organism Laterality: unspecified laterality Lung location: unspecified part of lung Qualified Code(s) : J18.9 - Pneumonia, unspecified organism Is this a current diagnosis for this admission?: YesPlan: cont iv antiboitics f/u sputum cuture (5) HLD (hyperlipidemia) Is this a current diagnosis for this admission?: Yes (6) HTN (hypertension) Qualifiers: Hypertension type: essential hypertension Qualified Code(s): I10 - Essential (primary) hypertension Is this a current diagnosis for this admission?: Yes - Time Time Spent with patient: 15-24 minutes Medications reviewed and adjusted accordingly: Yes Within: Other - Inpatient Certification Medical Necessity: Need for IV Antibiotics Post Hospital Care: D/C Senior Security Analyst Documentation - Plan Summary Plan Summary: d/w sister about pt condition and poor prognosis
[2016-10-19 15:43] LABS: ARTERIAL BLOOD BASE EXCESS -0.7 mmol/L; ARTERIAL BLOOD O2 SATURATION 96.2 % (94-98)
[2016-10-19] MEDS: OXYCODONE HCL IR 5 MG TABLET PO PRN (18:20)
[2016-10-19] MEDS: MIRTAZAPINE 15 MG TABLET PO SCH (21:55)
[2016-10-20] MEDS: AZTREONAM 1 GM in DEXTROSE 5%-WATER 50 ML IV SCH ×3 (01:05→17:29)
[2016-10-20] MEDS: PREGABALIN 75 MG CAPSULE PO SCH ×3 (06:29→21:11)
[2016-10-20] MEDS: OXYCODONE HCL IR 5 MG TABLET PO PRN ×2 (06:29→22:05)
[2016-10-20] MEDS: IPRATROPIUM/ALBUTEROL 0.5-2.5 MG/3 ML AMPUL NEB PRN (08:52)
--- NOTE | 2016-10-20 10:03 | PDOC PROGRESS REPORT ---
Subjective Progress Note for:: 10/20/16 Subjective:: pt is doing fair nocp no sob no fever Physical Exam Vital Signs: Temp Pulse Resp BP Pulse Ox 98.1 F 99 16 149/74 H 97 10/20/16 07:31 10/20/16 08:52 10/20/16 08:52 10/20/16 07:31 10/20/16 08:52 Intake & Output 10/19/16 10/20/16 10/21/16 06:59 06:59 06:59 Intake Total 2760 3280 Balance 2760 3280 Weight 70 kg 69.1 kg General appearance: PRESENT: no acute distress, well-developed, well-nourished Head exam: PRESENT: atraumatic, normocephalic Eye exam: PRESENT: conjunctiva pink, EOMI, PERRLA. ABSENT: scleral icterus Ear exam: PRESENT: normal external ear exam Mouth exam: PRESENT: moist, tongue midline Neck exam: PRESENT: full ROM. ABSENT: carotid bruit, JVD, lymphadenopathy, thyromegaly Respiratory exam: PRESENT: clear to auscultation ghulam Cardiovascular exam: PRESENT: RRR. ABSENT: diastolic murmur, rubs, systolic murmur Pulses: PRESENT: normal dorsalis pedis pul, +2 pedal pulses bilateral Vascular exam: PRESENT: normal capillary refill GI/Abdominal exam: PRESENT: normal bowel sounds, soft. ABSENT: distended, guarding, mass, organolmegaly, rebound, tenderness Rectal exam: PRESENT: deferred Neurological exam: PRESENT: alert, awake, oriented to person, oriented to place , oriented to time, oriented to situation, CN II-XII grossly intact. ABSENT: motor sensory deficit Psychiatric exam: PRESENT: appropriate affect, normal mood. ABSENT: homicidal ideation, suicidal ideation Skin exam: PRESENT: dry, intact, warm. ABSENT: cyanosis, rash Results Laboratory Results: 10/19/16 06:32 10/19/16 06:32 10/19/16 15:20 Carbonic Acid 1.21 HCO3/H2CO3 Ratio 19:1 ABG pH 7.39 ABG pCO2 40.3 ABG pO2 83.2 ABG HCO3 24.1 ABG O2 Saturation 96.2 ABG Base Excess -0.7 FiO2 3 L 10/16/16 10/16/16 10/17/16 22:11 22:11 04:02 Creatine Kinase 39 CK-MB (CK-2) 2.27 2.35 Troponin I < 0.012 < 0.012 10/17/16 10/17/16 10/17/16 04:02 10:53 10:53 Creatine Kinase 43 43 CK-MB (CK-2) 2.49 Troponin I < 0.012 Impressions: Chest X-Ray 10/16/16 15:41 IMPRESSION: No significant interval change. Small left pleural effusion. Other findings as noted above. Head CT 10/16/16 20:04 IMPRESSION: MILD CHRONIC CHANGES OF ATROPHY AND MICROVASCULAR ISCHEMIA. NO ACUTE PROCESS. Assessment & Plan - Diagnosis (1) Acute respiratory failure with hypoxia and hypercapnia Is this a current diagnosis for this admission?: YesPlan: cont neb rx (3) Chronic obstructive lung disease Qualifiers: COPD type: unspecified COPD Qualified Code(s): J44.9 - Chronic obstructive pulmonary disease, unspecified Is this a current diagnosis for this admission?: YesPlan: cont curr med (4) Pneumonia Qualifiers: Pneumonia type: due to unspecified organism Laterality: unspecified laterality Lung location: unspecified part of lung Qualified Code(s) : J18.9 - Pneumonia, unspecified organism Is this a current diagnosis for this admission?: YesPlan: cont iv antiboitics f/u sputum cuture (5) HLD (hyperlipidemia) Is this a current diagnosis for this admission?: Yes (6) HTN (hypertension) Qualifiers: Hypertension type: essential hypertension Qualified Code(s): I10 - Essential (primary) hypertension Is this a current diagnosis for this admission?: Yes - Time Time Spent with patient: 15-24 minutes Medications reviewed and adjusted accordingly: Yes Anticipated discharge: SNF Within: Other - Inpatient Certification Medical Necessity: Need for IV Antibiotics Post Hospital Care: D/C [employer] Documentation - Plan Summary Plan Summary: Continues current antibiotic patient is currently afebrile
[2016-10-20] MEDS: CITALOPRAM HYDROBROMIDE 20 MG TABLET PO SCH (10:30)
[2016-10-20] MEDS: CLONAZEPAM 1 MG TABLET PO SCH ×2 (10:30→21:11)
[2016-10-20] MEDS: NYSTATIN OINTMENT 15 GM TUBE TP SCH (10:31)
[2016-10-20] MEDS: ENOXAPARIN SODIUM INJ 40 MG/0.4 ML DISP.SYRIN SUBCUT SCH (10:32)
[2016-10-20] MEDS: BUDESONIDE/FORMOTEROL 160-4.5 MCG 60 PUFF/6 GM MDI IH SCH ×2 (10:40→21:14)
[2016-10-20] MEDS: MIRTAZAPINE 15 MG TABLET PO SCH (21:11)
[2016-10-20] MEDS: LEVOFLOXACIN 750 MG/D5W RTU 750 MG/150 ML RTUPB IV SCH (21:11)
[2016-10-21] MEDS: AZTREONAM 1 GM in DEXTROSE 5%-WATER 50 ML IV SCH ×3 (01:41→17:37)
[2016-10-21] MEDS: PREGABALIN 75 MG CAPSULE PO SCH ×3 (06:35→21:48)
[2016-10-21] MEDS: ALBUTEROL SULFATE HFA (90 MCG/PUFF) 200 PUFF/8.5 GM MDI IH PRN (11:07)
[2016-10-21] MEDS: CITALOPRAM HYDROBROMIDE 20 MG TABLET PO SCH (11:07)
[2016-10-21] MEDS: BUDESONIDE/FORMOTEROL 160-4.5 MCG 60 PUFF/6 GM MDI IH SCH ×2 (11:07→21:48)
[2016-10-21] MEDS: CLONAZEPAM 1 MG TABLET PO SCH ×2 (11:08→21:48)
[2016-10-21] MEDS: ENOXAPARIN SODIUM INJ 40 MG/0.4 ML DISP.SYRIN SUBCUT SCH (11:08)
[2016-10-21] MEDS: NYSTATIN OINTMENT 15 GM TUBE TP SCH (11:11)
--- NOTE | 2016-10-21 18:52 | PDOC PROGRESS REPORT ---
Subjective Progress Note for:: 10/21/16 Subjective:: She was seen by the bedside, the sputum culture grew polymicrobial, MRSA, Pseudomonas in the sputum the ,blood culture grew staph epi most likely contamination Physical Exam Vital Signs: Temp Pulse Resp BP Pulse Ox 98.2 F 106 H 16 114/63 95 10/21/16 15:24 10/21/16 15:24 10/21/16 15:24 10/21/16 15:24 10/21/16 15:24 Intake & Output 10/20/16 10/21/16 10/22/16 06:59 06:59 06:59 Intake Total 3280 2440 440 Balance 3280 2440 440 Weight 69.1 kg 69.1 kg General appearance: PRESENT: mild distress Eye exam: PRESENT: PERRLA Respiratory exam: PRESENT: wheezes Cardiovascular exam: PRESENT: +S1, +S2 GI/Abdominal exam: PRESENT: soft Neurological exam: PRESENT: alert Results Laboratory Results: 10/19/16 06:32 10/19/16 06:32 10/17/16 13:25 Sputum Gram Stain - Final 10/17/16 13:25 Sputum Sputum Culture - Final Mrsa (Meth Resis Staph Aureus) Pseudomonas Aeruginosa Normal Caron Absent 10/16/16 10/16/16 10/17/16 22:11 22:11 04:02 Creatine Kinase 39 CK-MB (CK-2) 2.27 2.35 Troponin I < 0.012 < 0.012 10/17/16 10/17/16 10/17/16 04:02 10:53 10:53 Creatine Kinase 43 43 CK-MB (CK-2) 2.49 Troponin I < 0.012 Impressions: Chest X-Ray 10/16/16 15:41 IMPRESSION: No significant interval change. Small left pleural effusion. Other findings as noted above. Head CT 10/16/16 20:04 IMPRESSION: MILD CHRONIC CHANGES OF ATROPHY AND MICROVASCULAR ISCHEMIA. NO ACUTE PROCESS. Assessment & Plan - Diagnosis (1) Acute respiratory failure with hypoxia and hypercapnia Is this a current diagnosis for this admission?: Yes (2) Squamous cell lung cancer Qualifiers: Laterality: left Qualified Code(s): C34.92 - Malignant neoplasm of unspecified part of left bronchus or lung Is this a current diagnosis for this admission?: Yes (3) Hypotension Qualifiers: Hypotension type: unspecified hypotension type Qualified Code(s): I95.9 - Hypotension, unspecified Is this a current diagnosis for this admission?: Yes (4) Metabolic encephalopathy Is this a current diagnosis for this admission?: Yes (6) Chronic obstructive pulmonary disease Qualifiers: COPD type: unspecified COPD Qualified Code(s): J44.9 - Chronic obstructive pulmonary disease, unspecified Is this a current diagnosis for this admission?: Yes - Plan Summary Plan Summary: She will continue present treatment regimen, she will need to have antibiotic change in light of the sputum culture
[2016-10-21] MEDS: MIRTAZAPINE 15 MG TABLET PO SCH (21:48)
[2016-10-22] MEDS: AZTREONAM 1 GM in DEXTROSE 5%-WATER 50 ML IV SCH ×3 (01:57→18:41)
[2016-10-22] MEDS: PREGABALIN 75 MG CAPSULE PO SCH ×3 (05:41→21:50)
[2016-10-22] MEDS: NORMAL SALINE 1000 ML 1,000 ML IV PRN (05:41)
[2016-10-22] MEDS: IPRATROPIUM/ALBUTEROL 0.5-2.5 MG/3 ML AMPUL NEB PRN ×2 (07:57→19:50)
[2016-10-22] MEDS: CLONAZEPAM 1 MG TABLET PO SCH ×2 (11:24→21:50)
[2016-10-22] MEDS: ENOXAPARIN SODIUM INJ 40 MG/0.4 ML DISP.SYRIN SUBCUT SCH (11:41)
[2016-10-22] MEDS: CITALOPRAM HYDROBROMIDE 20 MG TABLET PO SCH (11:41)
[2016-10-22] MEDS: NYSTATIN OINTMENT 15 GM TUBE TP SCH (11:42)
[2016-10-22] MEDS: BUDESONIDE/FORMOTEROL 160-4.5 MCG 60 PUFF/6 GM MDI IH SCH ×2 (11:42→21:50)
[2016-10-22] MEDS: ALBUTEROL SULFATE HFA (90 MCG/PUFF) 200 PUFF/8.5 GM MDI IH PRN ×2 (11:43→18:37)
[2016-10-22] MEDS ORDERED: LINEZOLID 600 MG RTU 300 ML IV ONE (11:45)
--- NOTE | 2016-10-22 17:36 | PDOC PROGRESS REPORT ---
Subjective Progress Note for:: 10/22/16 Subjective:: She has polymicrobial pneumonia, she is started on IV Zyvox, she will continue IV aztreonam Physical Exam Vital Signs: Temp Pulse Resp BP Pulse Ox 97.0 F 105 H 20 97/62 L 97 10/22/16 16:00 10/22/16 16:00 10/22/16 16:00 10/22/16 16:00 10/22/16 16:00 Intake & Output 10/21/16 10/22/16 10/23/16 06:59 06:59 06:59 Intake Total 2440 1701 Balance 2440 1701 Weight 69.1 kg 69.1 kg General appearance: PRESENT: mild distress Eye exam: PRESENT: PERRLA Respiratory exam: PRESENT: wheezes Cardiovascular exam: PRESENT: +S1, +S2 GI/Abdominal exam: PRESENT: soft Neurological exam: PRESENT: alert Results Laboratory Results: 10/19/16 06:32 10/19/16 06:32 10/16/16 10/16/16 10/17/16 22:11 22:11 04:02 Creatine Kinase 39 CK-MB (CK-2) 2.27 2.35 Troponin I < 0.012 < 0.012 10/17/16 10/17/16 10/17/16 04:02 10:53 10:53 Creatine Kinase 43 43 CK-MB (CK-2) 2.49 Troponin I < 0.012 Impressions: Chest X-Ray 10/16/16 15:41 IMPRESSION: No significant interval change. Small left pleural effusion. Other findings as noted above. Head CT 10/16/16 20:04 IMPRESSION: MILD CHRONIC CHANGES OF ATROPHY AND MICROVASCULAR ISCHEMIA. NO ACUTE PROCESS. Assessment & Plan - Diagnosis (1) Acute respiratory failure with hypoxia and hypercapnia Is this a current diagnosis for this admission?: Yes (2) Squamous cell lung cancer Qualifiers: Laterality: left Qualified Code(s): C34.92 - Malignant neoplasm of unspecified part of left bronchus or lung Is this a current diagnosis for this admission?: Yes (3) Hypotension Qualifiers: Hypotension type: unspecified hypotension type Qualified Code(s): I95.9 - Hypotension, unspecified Is this a current diagnosis for this admission?: Yes (4) Metabolic encephalopathy Is this a current diagnosis for this admission?: Yes (6) Chronic obstructive pulmonary disease Qualifiers: COPD type: unspecified COPD Qualified Code(s): J44.9 - Chronic obstructive pulmonary disease, unspecified Is this a current diagnosis for this admission?: Yes (7) MRSA pneumonia Qualifiers: Laterality: unspecified laterality Lung location: unspecified part of lung Qualified Code(s): J15.212 - Pneumonia due to Methicillin resistant Staphylococcus aureus Is this a current diagnosis for this admission?: YesPlan: She is started on IV linezolid (8) Pseudomonas pneumonia Qualifiers: Laterality: unspecified laterality Lung location: unspecified part of lung Qualified Code(s): J15.1 - Pneumonia due to Pseudomonas Is this a current diagnosis for this admission?: YesPlan: She will continue IV aztreonam
[2016-10-22] MEDS: MIRTAZAPINE 15 MG TABLET PO SCH (21:50)
[2016-10-22] MEDS: LINEZOLID 600 MG RTU 300 ML IV SCH (21:50)
[2016-10-23] MEDS: AZTREONAM 1 GM in DEXTROSE 5%-WATER 50 ML IV SCH ×3 (01:26→17:27)
[2016-10-23] MEDS: PREGABALIN 75 MG CAPSULE PO SCH ×3 (05:54→21:38)
[2016-10-23] MEDS: NORMAL SALINE 1000 ML 1,000 ML IV PRN ×2 (05:54→23:20)
[2016-10-23] MEDS: IPRATROPIUM/ALBUTEROL 0.5-2.5 MG/3 ML AMPUL NEB PRN (08:12)
[2016-10-23] MEDS: CLONAZEPAM 1 MG TABLET PO SCH ×2 (09:27→21:38)
[2016-10-23] MEDS: CITALOPRAM HYDROBROMIDE 20 MG TABLET PO SCH (09:28)
[2016-10-23] MEDS: ENOXAPARIN SODIUM INJ 40 MG/0.4 ML DISP.SYRIN SUBCUT SCH (09:28)
[2016-10-23] MEDS: BUDESONIDE/FORMOTEROL 160-4.5 MCG 60 PUFF/6 GM MDI IH SCH ×2 (09:29→21:37)
[2016-10-23] MEDS: NYSTATIN OINTMENT 15 GM TUBE TP SCH (09:29)
[2016-10-23] MEDS: LINEZOLID 600 MG RTU 300 ML IV SCH ×2 (09:29→21:41)
--- NOTE | 2016-10-23 15:58 | PDOC PROGRESS REPORT ---
Subjective Progress Note for:: 10/23/16 Subjective:: She was seen by the bedside, she continues to wheeze, she has MRSA, Pseudomonas pneumonia. She is on IV Zyvox and aztreonam Physical Exam Vital Signs: Temp Pulse Resp BP Pulse Ox 98.5 F 104 H 16 132/62 H 97 10/23/16 11:58 10/23/16 11:58 10/23/16 11:58 10/23/16 11:58 10/23/16 11:58 Intake & Output 10/22/16 10/23/16 10/24/16 06:59 06:59 06:59 Intake Total 1701 2480 Balance 1701 2480 Weight 69.1 kg 69.1 kg General appearance: PRESENT: mild distress Respiratory exam: PRESENT: wheezes Cardiovascular exam: PRESENT: +S1, +S2 GI/Abdominal exam: PRESENT: soft Neurological exam: PRESENT: alert Skin exam: PRESENT: erythema, rash, other - There is erythema on the skin of the buttom Results Laboratory Results: 10/19/16 06:32 10/19/16 06:32 10/16/16 10/16/16 10/17/16 22:11 22:11 04:02 Creatine Kinase 39 CK-MB (CK-2) 2.27 2.35 Troponin I < 0.012 < 0.012 10/17/16 10/17/16 10/17/16 04:02 10:53 10:53 Creatine Kinase 43 43 CK-MB (CK-2) 2.49 Troponin I < 0.012 Impressions: Chest X-Ray 10/16/16 15:41 IMPRESSION: No significant interval change. Small left pleural effusion. Other findings as noted above. Head CT 10/16/16 20:04 IMPRESSION: MILD CHRONIC CHANGES OF ATROPHY AND MICROVASCULAR ISCHEMIA. NO ACUTE PROCESS. Assessment & Plan - Diagnosis (1) Acute respiratory failure with hypoxia and hypercapnia Is this a current diagnosis for this admission?: Yes (2) Squamous cell lung cancer Qualifiers: Laterality: left Qualified Code(s): C34.92 - Malignant neoplasm of unspecified part of left bronchus or lung Is this a current diagnosis for this admission?: Yes (3) Hypotension Qualifiers: Hypotension type: unspecified hypotension type Qualified Code(s): I95.9 - Hypotension, unspecified Is this a current diagnosis for this admission?: Yes (4) Metabolic encephalopathy Is this a current diagnosis for this admission?: Yes (6) Chronic obstructive pulmonary disease Qualifiers: COPD type: unspecified COPD Qualified Code(s): J44.9 - Chronic obstructive pulmonary disease, unspecified Is this a current diagnosis for this admission?: Yes (7) MRSA pneumonia Qualifiers: Laterality: unspecified laterality Lung location: unspecified part of lung Qualified Code(s): J15.212 - Pneumonia due to Methicillin resistant Staphylococcus aureus Is this a current diagnosis for this admission?: Yes (8) Pseudomonas pneumonia Qualifiers: Laterality: unspecified laterality Lung location: unspecified part of lung Qualified Code(s): J15.1 - Pneumonia due to Pseudomonas Is this a current diagnosis for this admission?: Yes - Plan Summary Plan Summary: She will continue IV antibiotic, bronchodilators with DuoNeb
[2016-10-23 16:39] LABS: ABSOLUTE BASOPHILS # (AUTO) 0.1 10^3/uL (0.0-0.2); ABSOLUTE EOSINOPHILS # (AUTO) 0.5 10^3/uL (0.0-0.6); ABSOLUTE LYMPHOCYTES (AUTO) 2.4 10^3/uL (0.5-4.7); ABSOLUTE MONOCYTES (AUTO) 1.2 10^3/uL (0.1-1.4); ABSOLUTE NEUT (AUTO) 7.2 10^3/uL (1.7-8.2); BASOPHILS % (AUTO) 0.7 % (0-2); EOSINOPHILS % (AUTO) 4.3 % (0-6); HEMATOCRIT 28.5 % (36.0-47.0); HGB HCT DIFFERENCE -1.5; LYMPHOCYTES % (AUTO) 21.5 % (13-45); MEAN CORPUSCULAR HEMOGLOBIN 27.8 pg (27.0-33.4); MEAN CORPUSCULAR HGB CONC 31.7 g/dL (32.0-36.0); MEAN CORPUSCULAR VOLUME 88 fl (80-97); MONOCYTES % (AUTO) 10.3 % (3-13); RED BLOOD COUNT 3.24 10^6/uL (3.72-5.28); RED CELL DISTRIBUTION WIDTH 16.2 % (11.5-14.0); SEGMENTED NEUTROPHILS % (AUTO) 63.2 % (42-78); WHITE BLOOD COUNT 11.3 10^3/uL (4.0-10.5)
[2016-10-23 16:56] LABS: ALANINE AMINOTRANSFERASE 24 U/L (9-52); ALBUMIN 2.7 g/dL (3.5-5.0); ALKALINE PHOSPHATASE 79 U/L (38-126); ANION GAP 9 (5-19); ASPARTATE AMINO TRANSFERASE 12 U/L (14-36); BILIRUBIN,DIRECT 0.3 mg/dL (0.0-0.4); BILIRUBIN,TOTAL 0.3 mg/dL (0.2-1.3); BLOOD UREA NITROGEN 9 mg/dL (7-20); CALCIUM 8.6 mg/dL (8.4-10.2); CARBON DIOXIDE 25 mmol/L (22-30); CHLORIDE 110 mmol/L (98-107); CREATININE RESULT 0.72 mg/dL (0.52-1.25); GLUCOSE 80 mg/dL (75-110); SODIUM 144.2 mmol/L (137-145); TOTAL PROTEIN 5.7 g/dL (6.3-8.2)
[2016-10-23] MEDS: POTASSIUM CHLORIDE 10 MEQ TABLET.SA PO SCH ×2 (18:51→21:37)
[2016-10-23] MEDS: OXYCODONE HCL IR 5 MG TABLET PO PRN (19:41)
[2016-10-23] MEDS: MIRTAZAPINE 15 MG TABLET PO SCH (21:38)
[2016-10-23] MEDS: OXYCODONE-ACETAMINOPHEN 5-325 MG TABLET PO PRN (22:50)
[2016-10-24] MEDS: POTASSIUM CHLORIDE 10 MEQ TABLET.SA PO SCH (01:13)
[2016-10-24] MEDS: PREGABALIN 75 MG CAPSULE PO SCH ×3 (05:12→21:49)
[2016-10-24] MEDS: IPRATROPIUM/ALBUTEROL 0.5-2.5 MG/3 ML AMPUL NEB PRN ×3 (05:48→19:46)
[2016-10-24] MEDS: OXYCODONE-ACETAMINOPHEN 5-325 MG TABLET PO PRN (06:05)
[2016-10-24 06:19] LABS: ABSOLUTE EOSINOPHILS # (AUTO) 0.5 10^3/uL (0.0-0.6); ABSOLUTE LYMPHOCYTES (AUTO) 2.8 10^3/uL (0.5-4.7); ABSOLUTE NEUT (AUTO) 5.3 10^3/uL (1.7-8.2); BASOPHILS % (AUTO) 0.3 % (0-2); EOSINOPHILS % (AUTO) 5.1 % (0-6); HEMATOCRIT 32.3 % (36.0-47.0); HEMOGLOBIN 10.3 g/dL (12.0-15.5); HGB HCT DIFFERENCE -1.4; LYMPHOCYTES % (AUTO) 28.9 % (13-45); MEAN CORPUSCULAR HEMOGLOBIN 28.2 pg (27.0-33.4); MEAN CORPUSCULAR VOLUME 88 fl (80-97); MONOCYTES % (AUTO) 10.4 % (3-13); RED BLOOD COUNT 3.67 10^6/uL (3.72-5.28); RED CELL DISTRIBUTION WIDTH 16.1 % (11.5-14.0); SEGMENTED NEUTROPHILS % (AUTO) 55.3 % (42-78); WHITE BLOOD COUNT 9.6 10^3/uL (4.0-10.5)
[2016-10-24 06:35] LABS: ALANINE AMINOTRANSFERASE 22 U/L (9-52); ALBUMIN 3.2 g/dL (3.5-5.0); ALKALINE PHOSPHATASE 82 U/L (38-126); ANION GAP 7 (5-19); ASPARTATE AMINO TRANSFERASE 23 U/L (14-36); BILIRUBIN,DIRECT 0.4 mg/dL (0.0-0.4); BILIRUBIN,TOTAL 0.5 mg/dL (0.2-1.3); BLOOD UREA NITROGEN 7 mg/dL (7-20); CALCIUM 8.9 mg/dL (8.4-10.2); CARBON DIOXIDE 29 mmol/L (22-30); CHLORIDE 108 mmol/L (98-107); CREATININE RESULT 0.64 mg/dL (0.52-1.25); GLUCOSE 75 mg/dL (75-110); POTASSIUM 3.9 mmol/L (3.6-5.0); SODIUM 144.1 mmol/L (137-145); TOTAL PROTEIN 6.9 g/dL (6.3-8.2)
[2016-10-24] MEDS ORDERED: ONDANSETRON HCL INJ/PF 4 MG/2 ML SDV ONE (06:48)
[2016-10-24] MEDS ORDERED: ONDANSETRON HCL INJ/PF 4 MG/2 ML SDV IV PRN (07:06)
[2016-10-24] MEDS ORDERED: ONDANSETRON 4 MG TAB.RAPDIS PO PRN (07:07)
[2016-10-24] MEDS: ENOXAPARIN SODIUM INJ 40 MG/0.4 ML DISP.SYRIN SUBCUT SCH (12:12)
[2016-10-24] MEDS: NYSTATIN OINTMENT 15 GM TUBE TP SCH (12:13)
[2016-10-24] MEDS: BUDESONIDE/FORMOTEROL 160-4.5 MCG 60 PUFF/6 GM MDI IH SCH ×2 (12:13→21:49)
[2016-10-24] MEDS: LINEZOLID 600 MG TABLET PO SCH ×2 (12:30→21:49)
--- NOTE | 2016-10-24 19:00 | PDOC PROGRESS REPORT ---
Subjective Progress Note for:: 10/24/16 Subjective:: She complained of rash and itching in the lower back Physical Exam Vital Signs: Temp Pulse Resp BP Pulse Ox 97.3 F 95 16 135/61 H 97 10/24/16 15:10 10/24/16 16:46 10/24/16 16:46 10/24/16 15:10 10/24/16 16:46 Intake & Output 10/23/16 10/24/16 10/25/16 06:59 06:59 06:59 Intake Total 2480 840 1200 Balance 2480 840 1200 Weight 69.1 kg 71.1 kg General appearance: PRESENT: mild distress Eye exam: PRESENT: PERRLA Respiratory exam: PRESENT: crackles Cardiovascular exam: PRESENT: +S1, +S2 GI/Abdominal exam: PRESENT: soft Neurological exam: PRESENT: alert, CN II-XII grossly intact Results Laboratory Results: 10/24/16 05:48 10/24/16 05:48 10/24/16 10/24/16 05:48 05:48 WBC 9.6 RBC 3.67 L Hgb 10.3 L Hct 32.3 L MCV 88 MCH 28.2 MCHC 32.0 RDW 16.1 H Plt Count 361 Seg Neutrophils % 55.3 Lymphocytes % 28.9 Monocytes % 10.4 Eosinophils % 5.1 Basophils % 0.3 Absolute Neutrophils 5.3 Absolute Lymphocytes 2.8 Absolute Monocytes 1.0 Absolute Eosinophils 0.5 Absolute Basophils 0.0 Sodium 144.1 Potassium 3.9 Chloride 108 H Carbon Dioxide 29 Anion Gap 7 BUN 7 Creatinine 0.64 Est GFR ( Amer) > 60 Est GFR (Non-Af Amer) > 60 Glucose 75 Calcium 8.9 Total Bilirubin 0.5 AST 23 ALT 22 Alkaline Phosphatase 82 Total Protein 6.9 Albumin 3.2 L 10/16/16 10/16/16 10/17/16 22:11 22:11 04:02 Creatine Kinase 39 CK-MB (CK-2) 2.27 2.35 Troponin I < 0.012 < 0.012 10/17/16 10/17/16 10/17/16 04:02 10:53 10:53 Creatine Kinase 43 43 CK-MB (CK-2) 2.49 Troponin I < 0.012 Impressions: Chest X-Ray 10/16/16 15:41 IMPRESSION: No significant interval change. Small left pleural effusion. Other findings as noted above. Head CT 10/16/16 20:04 IMPRESSION: MILD CHRONIC CHANGES OF ATROPHY AND MICROVASCULAR ISCHEMIA. NO ACUTE PROCESS. Assessment & Plan - Diagnosis (1) Acute respiratory failure with hypoxia and hypercapnia Is this a current diagnosis for this admission?: Yes (2) Squamous cell lung cancer Qualifiers: Laterality: left Qualified Code(s): C34.92 - Malignant neoplasm of unspecified part of left bronchus or lung Is this a current diagnosis for this admission?: Yes (3) Hypotension Qualifiers: Hypotension type: unspecified hypotension type Qualified Code(s): I95.9 - Hypotension, unspecified Is this a current diagnosis for this admission?: Yes (4) Metabolic encephalopathy Is this a current diagnosis for this admission?: Yes (6) Chronic obstructive pulmonary disease Qualifiers: COPD type: unspecified COPD Qualified Code(s): J44.9 - Chronic obstructive pulmonary disease, unspecified Is this a current diagnosis for this admission?: Yes (7) MRSA pneumonia Qualifiers: Laterality: unspecified laterality Lung location: unspecified part of lung Qualified Code(s): J15.212 - Pneumonia due to Methicillin resistant Staphylococcus aureus Is this a current diagnosis for this admission?: Yes (8) Pseudomonas pneumonia Qualifiers: Laterality: unspecified laterality Lung location: unspecified part of lung Qualified Code(s): J15.1 - Pneumonia due to Pseudomonas Is this a current diagnosis for this admission?: Yes - Plan Summary Plan Summary: She will continue present treatment
[2016-10-24] MEDS: NORMAL SALINE 1000 ML 1,000 ML IV PRN (20:20)
[2016-10-24] MEDS: CLOBETASOL PROPIONATE 0.05% CREAM 15 GM TP SCH (21:49)
[2016-10-24] MEDS ORDERED: CLONAZEPAM 1 MG TABLET PO ONE (23:00)
[2016-10-24] MEDS ORDERED: MIRTAZAPINE 15 MG TABLET PO ONE (23:00)
[2016-10-25] MEDS ORDERED: OXYCODONE HCL IR 5 MG TABLET PO PRN (05:08)
[2016-10-25] MEDS: PREGABALIN 75 MG CAPSULE PO SCH ×3 (05:17→22:36)
[2016-10-25] MEDS: IPRATROPIUM/ALBUTEROL 0.5-2.5 MG/3 ML AMPUL NEB PRN (07:59)
[2016-10-25] MEDS ORDERED: ERGOCALCIFEROL (VITAMIN D2) 50000 UNIT (1.25 MG) CAPSULE PO SCH (10:00)
[2016-10-25] MEDS: CLONAZEPAM 1 MG TABLET PO SCH ×2 (11:20→22:36)
[2016-10-25] MEDS: NYSTATIN OINTMENT 15 GM TUBE TP SCH (11:45)
[2016-10-25] MEDS: BUDESONIDE/FORMOTEROL 160-4.5 MCG 60 PUFF/6 GM MDI IH SCH ×2 (11:45→22:36)
[2016-10-25] MEDS: CITALOPRAM HYDROBROMIDE 20 MG TABLET PO SCH (11:45)
[2016-10-25] MEDS: CLOBETASOL PROPIONATE 0.05% CREAM 15 GM TP SCH ×2 (11:45→22:36)
[2016-10-25] MEDS: ENOXAPARIN SODIUM INJ 40 MG/0.4 ML DISP.SYRIN SUBCUT SCH (11:46)
[2016-10-25] MEDS: LINEZOLID 600 MG TABLET PO SCH ×2 (11:46→22:36)
--- NOTE | 2016-10-25 19:30 | PDOC PROGRESS REPORT ---
Subjective Progress Note for:: 10/25/16 Subjective:: Patient with multiple comorbid conditions including COPD, malignant neoplasm of the lung admitted because of pneumonia, MRSA and Pseudomonas on antibiotic Physical Exam Vital Signs: Temp Pulse Resp BP Pulse Ox 98.8 F 99 17 153/82 H 99 10/25/16 15:24 10/25/16 15:24 10/25/16 15:24 10/25/16 15:24 10/25/16 15:24 Intake & Output 10/24/16 10/25/16 10/26/16 06:59 06:59 06:59 Intake Total 840 1520 600 Balance 840 1520 600 Weight 71.1 kg 70 kg General appearance: PRESENT: mild distress Eye exam: PRESENT: PERRLA Respiratory exam: PRESENT: wheezes Cardiovascular exam: PRESENT: +S1, +S2 GI/Abdominal exam: PRESENT: soft Neurological exam: PRESENT: alert Results Laboratory Results: 10/24/16 05:48 10/24/16 05:48 10/16/16 10/16/16 10/17/16 22:11 22:11 04:02 Creatine Kinase 39 CK-MB (CK-2) 2.27 2.35 Troponin I < 0.012 < 0.012 10/17/16 10/17/16 10/17/16 04:02 10:53 10:53 Creatine Kinase 43 43 CK-MB (CK-2) 2.49 Troponin I < 0.012 Impressions: Chest X-Ray 10/16/16 15:41 IMPRESSION: No significant interval change. Small left pleural effusion. Other findings as noted above. Head CT 10/16/16 20:04 IMPRESSION: MILD CHRONIC CHANGES OF ATROPHY AND MICROVASCULAR ISCHEMIA. NO ACUTE PROCESS. Assessment & Plan - Diagnosis (1) Acute respiratory failure with hypoxia and hypercapnia Is this a current diagnosis for this admission?: Yes (2) Squamous cell lung cancer Qualifiers: Laterality: left Qualified Code(s): C34.92 - Malignant neoplasm of unspecified part of left bronchus or lung Is this a current diagnosis for this admission?: Yes (3) Hypotension Qualifiers: Hypotension type: unspecified hypotension type Qualified Code(s): I95.9 - Hypotension, unspecified Is this a current diagnosis for this admission?: Yes (4) Metabolic encephalopathy Is this a current diagnosis for this admission?: Yes (6) Chronic obstructive pulmonary disease Qualifiers: COPD type: unspecified COPD Qualified Code(s): J44.9 - Chronic obstructive pulmonary disease, unspecified Is this a current diagnosis for this admission?: Yes (7) MRSA pneumonia Qualifiers: Laterality: unspecified laterality Lung location: unspecified part of lung Qualified Code(s): J15.212 - Pneumonia due to Methicillin resistant Staphylococcus aureus Is this a current diagnosis for this admission?: Yes (8) Pseudomonas pneumonia Qualifiers: Laterality: unspecified laterality Lung location: unspecified part of lung Qualified Code(s): J15.1 - Pneumonia due to Pseudomonas Is this a current diagnosis for this admission?: Yes - Plan Summary Plan Summary: She will continue Zyvox and aztreonam
[2016-10-25] MEDS: MIRTAZAPINE 15 MG TABLET PO SCH (22:36)
[2016-10-26] MEDS: OXYCODONE-ACETAMINOPHEN 5-325 MG TABLET PO PRN ×3 (05:28→19:38)
[2016-10-26] MEDS: PREGABALIN 75 MG CAPSULE PO SCH ×3 (05:29→21:45)
[2016-10-26] MEDS: ENOXAPARIN SODIUM INJ 40 MG/0.4 ML DISP.SYRIN SUBCUT SCH (10:02)
[2016-10-26] MEDS: LINEZOLID 600 MG TABLET PO SCH ×2 (10:02→21:44)
[2016-10-26] MEDS: BUDESONIDE/FORMOTEROL 160-4.5 MCG 60 PUFF/6 GM MDI IH SCH ×2 (10:02→21:43)
[2016-10-26] MEDS: CLONAZEPAM 1 MG TABLET PO SCH ×2 (10:02→21:43)
[2016-10-26] MEDS: CITALOPRAM HYDROBROMIDE 20 MG TABLET PO SCH (10:02)
[2016-10-26] MEDS: CLOBETASOL PROPIONATE 0.05% CREAM 15 GM TP SCH ×2 (10:02→21:44)
[2016-10-26] MEDS: IPRATROPIUM/ALBUTEROL 0.5-2.5 MG/3 ML AMPUL NEB PRN (14:18)
[2016-10-26] MEDS: NYSTATIN OINTMENT 15 GM TUBE TP SCH (16:21)
--- NOTE | 2016-10-26 17:25 | PDOC PROGRESS REPORT ---
Subjective Progress Note for:: 10/26/16 Subjective:: Patient was seen by the bedside, there is no change in condition Physical Exam Vital Signs: Temp Pulse Resp BP Pulse Ox 98.4 F 95 17 126/66 H 98 10/26/16 16:00 10/26/16 16:00 10/26/16 16:00 10/26/16 16:00 10/26/16 16:00 Intake & Output 10/25/16 10/26/16 10/27/16 06:59 06:59 06:59 Intake Total 1520 976 Balance 1520 976 Weight 70 kg 70.4 kg General appearance: PRESENT: no acute distress Eye exam: PRESENT: PERRLA Respiratory exam: PRESENT: wheezes Cardiovascular exam: PRESENT: +S1, +S2 GI/Abdominal exam: PRESENT: soft Neurological exam: PRESENT: alert, CN II-XII grossly intact Results Laboratory Results: 10/24/16 05:48 10/24/16 05:48 10/16/16 10/16/16 10/17/16 22:11 22:11 04:02 Creatine Kinase 39 CK-MB (CK-2) 2.27 2.35 Troponin I < 0.012 < 0.012 10/17/16 10/17/16 10/17/16 04:02 10:53 10:53 Creatine Kinase 43 43 CK-MB (CK-2) 2.49 Troponin I < 0.012 Impressions: Chest X-Ray 10/16/16 15:41 IMPRESSION: No significant interval change. Small left pleural effusion. Other findings as noted above. Head CT 10/16/16 20:04 IMPRESSION: MILD CHRONIC CHANGES OF ATROPHY AND MICROVASCULAR ISCHEMIA. NO ACUTE PROCESS. Assessment & Plan - Diagnosis (1) Acute respiratory failure with hypoxia and hypercapnia Is this a current diagnosis for this admission?: Yes (2) Squamous cell lung cancer Qualifiers: Laterality: left Qualified Code(s): C34.92 - Malignant neoplasm of unspecified part of left bronchus or lung Is this a current diagnosis for this admission?: Yes (3) Hypotension Qualifiers: Hypotension type: unspecified hypotension type Qualified Code(s): I95.9 - Hypotension, unspecified Is this a current diagnosis for this admission?: Yes (4) Metabolic encephalopathy Is this a current diagnosis for this admission?: Yes (6) Chronic obstructive pulmonary disease Qualifiers: COPD type: unspecified COPD Qualified Code(s): J44.9 - Chronic obstructive pulmonary disease, unspecified Is this a current diagnosis for this admission?: Yes (7) MRSA pneumonia Qualifiers: Laterality: unspecified laterality Lung location: unspecified part of lung Qualified Code(s): J15.212 - Pneumonia due to Methicillin resistant Staphylococcus aureus Is this a current diagnosis for this admission?: Yes (8) Pseudomonas pneumonia Qualifiers: Laterality: unspecified laterality Lung location: unspecified part of lung Qualified Code(s): J15.1 - Pneumonia due to Pseudomonas Is this a current diagnosis for this admission?: Yes - Plan Summary Plan Summary: Continue IV antibiotic present treatment
[2016-10-26] MEDS: MIRTAZAPINE 15 MG TABLET PO SCH (21:44)
[2016-10-27] MEDS: PREGABALIN 75 MG CAPSULE PO SCH ×2 (05:31→13:50)
[2016-10-27] MEDS: CITALOPRAM HYDROBROMIDE 20 MG TABLET PO SCH (10:52)
[2016-10-27] MEDS: BUDESONIDE/FORMOTEROL 160-4.5 MCG 60 PUFF/6 GM MDI IH SCH (10:52)
[2016-10-27] MEDS: ENOXAPARIN SODIUM INJ 40 MG/0.4 ML DISP.SYRIN SUBCUT SCH (10:52)
[2016-10-27] MEDS: CLONAZEPAM 1 MG TABLET PO SCH (10:52)
[2016-10-27] MEDS: ALBUTEROL SULFATE HFA (90 MCG/PUFF) 200 PUFF/8.5 GM MDI IH PRN (10:52)
[2016-10-27] MEDS: NYSTATIN OINTMENT 15 GM TUBE TP SCH (10:55)
[2016-10-27] MEDS: CLOBETASOL PROPIONATE 0.05% CREAM 15 GM TP SCH (10:55)
[2016-10-27] MEDS: LINEZOLID 600 MG TABLET PO SCH (11:13)
--- NOTE | 2016-10-27 14:18 | PDOC TRANSFER SUMMARY ---
General - Admit/Disc Date/PCP Admission Date/Primary Care Provider: 10/16/16 21:04 NATACHA ENGLAND MD Discharge Date: 10/27/16 - Discharge Diagnosis (1) Acute respiratory failure with hypoxia and hypercapnia Is this a current diagnosis for this admission?: Yes (2) Squamous cell lung cancer Is this a current diagnosis for this admission?: Yes (3) Hypotension Is this a current diagnosis for this admission?: Yes (4) Metabolic encephalopathy Is this a current diagnosis for this admission?: Yes (5) Hypoalbuminemia Is this a current diagnosis for this admission?: Yes (6) Chronic obstructive pulmonary disease Is this a current diagnosis for this admission?: Yes (7) MRSA pneumonia Is this a current diagnosis for this admission?: Yes (8) Pseudomonas pneumonia Is this a current diagnosis for this admission?: Yes - Additional Information Resuscitation Status: Do Not Resuscitate Home Medications: Albuterol Sulfate [Proair HFA] 1 puff IH PRN PRN 10/08/14 Fluconazole [Diflucan] 100 mg PO DAILY 10/08/14 Prednisone [Deltasone 20 mg Tablet] 40 mg PO DAILY #0 tablet 03/13/15 Albuterol Sulfate [Ventolin Hfa] 2 puff IH Q4HP PRN 10/16/16 Amlodipine Besylate [Norvasc 5 mg Tablet] 5 mg PO DAILY 10/16/16 Atorvastatin Calcium [Lipitor 10 mg Tablet] 10 mg PO QHS 10/16/16 Budesonide/Formoterol Fumarate [Symbicort HFA 160-4.5 mcg Inhaler 6 gm] 1 puff IH Q12 10/16/16 Citalopram Hydrobromide [Celexa 20 mg Tablet] 20 mg PO DAILY 10/16/16 Clonidine HCl [Catapres 0.1 mg Tablet] 0.1 mg PO Q12 10/16/16 Ergocalciferol (Vitamin D2) [Vitamin D2] 50,000 unit PO [id number] 10/16/16 Ipratropium/Albuterol Sulfate [Iprat-Albut 0.5-3(2.5) mg/3 ml] 3 ml IH Q6HP PRN 10/16/16 Levocetirizine Dihydrochloride [Xyzal] 5 mg PO QHS 10/16/16 Losartan Potassium [Cozaar 100 mg Tablet] 100 mg PO DAILY 10/16/16 Mirtazapine [Remeron 15 mg Tablet] 7.5 mg PO QHS 10/16/16 Omeprazole 40 mg PO DAILY 10/16/16 Pregabalin [Lyrica 75 mg Capsule] 75 mg PO Q8 10/16/16 Tiotropium Traver [Spiriva Handihaler 5 Cap/Kit (18 Mcg/Cap)] 1 puff IH DAILY 10/16/16 Levofloxacin [Levaquin 750 mg Tablet] 750 mg PO DAILY #14 tablet 10/27/16 Linezolid [Zyvox 600 mg Tablet] 600 mg PO Q12 #0 tablet 10/27/16 Linezolid [Zyvox 600 mg Tablet] 600 mg PO Q12 #28 tablet 10/27/16 Oxycodone HCl/Acetaminophen [Oxycodone-Acetaminophen 10-325] 1 tab PO Q6HP PRN # 120 tablet 10/27/16 History of Present Illness Admission Date/PCP: 10/16/16 21:04 NATACHA ENGLAND MD History of Present Illness: HUNTER GRANADOS is a 71 year old female, she has multiple comorbid conditions including chronic obstructive lung disease, malignant neoplasm of the lung, multiple hospitalization, presently resides the skilled nursing she was transferred from the skilled nursing to the emergency room because of excessive somnolence and very low blood pressure. In the emergency room she was evaluated , she was treated with fluid, blood pressure did respond to fluid therapy. The emergency room physician stated that patient has had many emergency room visits in the last 2 days. She presented in a similar fashion about 2 days ago she was treated with intravenous fluid therapy, blood pressure was stabilized and she was transferred back to skilled nursing at [facility] only for her to return back again to the emergency room with similar problems. I saw patient emergency room she was lethargic but responsive CT head was done there was no acute pathology that was demonstrated. Blood gas was done on FiO2 of 2 L, pH was 7.30 , PO2 57.5, PCO2 46.3 bicarbonate 24.1 this is consistent with acute respiratory failure with hypoxemia and hypercapnia, the blood test also showed hypoalbuminemia without proteinuria suggesting poor nutrition. 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 Hospital Course Hospital Course: She was admitted for the management of acute hypoxemic respiratory failure due to MRI of the on Pseudomonas pneumonia. She was treated with IV antibiotic, aztreonam and Levaquin empirically initially before culture results became available. The sputum culture grew MRSA and also Pseudomonas. The IV Levaquin was discontinued, she was started on intravenous Zyvox as she was continued on IV aztreonam. She has allergy to penicillin class of drug, urine culture is became available the IV Levaquin was discontinued and she was started on intravenous Zyvox and she was continued on aztreonam. She has multiple comorbid conditions including end-stage COPD, squamous cell lung cancer not on any active treatment, chronic pain from multiple etiologies, she was also made a DNR status on this admission. Physical Exam Vital Signs: Temp Pulse Resp BP Pulse Ox 98.6 F 98 18 153/86 H 100 10/27/16 12:00 10/27/16 12:00 10/27/16 12:00 10/27/16 12:00 10/27/16 12:00 Intake & Output 10/26/16 10/27/16 10/28/16 06:59 06:59 06:59 Intake Total 976 1272 Balance 976 1272 Weight 70.4 kg 70.5 kg General appearance: PRESENT: no acute distress Eye exam: PRESENT: PERRLA Respiratory exam: PRESENT: wheezes Cardiovascular exam: PRESENT: +S1, +S2 GI/Abdominal exam: PRESENT: soft Neurological exam: PRESENT: alert Results Laboratory Results: 10/24/16 05:48 10/24/16 05:48 10/16/16 10/16/16 10/17/16 22:11 22:11 04:02 Creatine Kinase 39 CK-MB (CK-2) 2.27 2.35 Troponin I < 0.012 < 0.012 10/17/16 10/17/16 10/17/16 04:02 10:53 10:53 Creatine Kinase 43 43 CK-MB (CK-2) 2.49 Troponin I < 0.012 Impressions: Chest X-Ray 10/16/16 15:41 IMPRESSION: No significant interval change. Small left pleural effusion. Other findings as noted above. Head CT 10/16/16 20:04 IMPRESSION: MILD CHRONIC CHANGES OF ATROPHY AND MICROVASCULAR ISCHEMIA. NO ACUTE PROCESS.
[2016-10-27 15:46] VITALS: BP 144/81
[2016-10-27] MEDS: OXYCODONE-ACETAMINOPHEN 5-325 MG TABLET PO PRN (18:36)
== END 2016-10-27 18:55 | DRG 177 ==
LOC: ER 14:03 → UNDOADMOB 20:05 → EH 20:05 → OBSVTOIN 21:04 → 5 21:44
PROVIDERS: ADMIT Internal Medicine; ATTEND Internal Medicine
DX: J15.212 Pneumonia due to Methicillin resistant Staphylococcus aureus (principal); J96.02 Acute respiratory failure with hypercapnia; J96.01 Acute respiratory failure with hypoxia; G93.41 Metabolic encephalopathy; A41.9 Sepsis, unspecified organism; C34.92 Malignant neoplasm of unspecified part of left bronchus or lung; Z66 Do not resuscitate; J15.1 Pneumonia due to Pseudomonas; I95.9 Hypotension, unspecified; E78.5 Hyperlipidemia, unspecified; I10 Essential (primary) hypertension; R40.0 Somnolence; J44.9 Chronic obstructive pulmonary disease, unspecified; K21.9 Gastro-esophageal reflux disease without esophagitis; E88.09 Other disorders of plasma-protein metabolism, not elsewhere classified; Z79.51 Long term (current) use of inhaled steroids; Z79.52 Long term (current) use of systemic steroids; Z79.899 Other long term (current) drug therapy; Z87.891 Personal history of nicotine dependence; Z88.0 Allergy status to penicillin; Z98.84 Bariatric surgery status
CPT/HCPCS: 36415; 36600; 70450; 71010; 80048; 80053; 80061; 80076; 81001; 82140; 82150; 82550; 82553; 82803; 83036; 83605; 83690; 83735; 83880; 84100; 84439; 84443; 84484; 85025; 85610; 85730; 87040; 87070; 87077; 87186; 87205; 93005; 93010; 96361; 96374; 99285; J1650; J1956; J2020; J2310; J2405; J3490; J7030; J7620; S0119

== ENCOUNTER 2016-10-30 06:13 | Inpatient (IN) | payer MEDICARE, MEDICAID ==
--- NOTE | 2016-10-30 07:10 | RADIOLOGY REPORT (SQ) ---
EXAM DESCRIPTION: CHEST SINGLE VIEW COMPLETED DATE/TIME: 10/30/2016 6:57 am REASON FOR STUDY: DIFFICULTY BREATHING COMPARISON: 10/16/2016. EXAM PARAMETERS: NUMBER OF VIEWS: One view. TECHNIQUE: Single frontal radiographic view of the chest acquired. RADIATION DOSE: NA LIMITATIONS: None. FINDINGS: LUNGS AND PLEURA: No opacities, masses or pneumothorax. No pleural effusion. MEDIASTINUM AND HILAR STRUCTURES: No masses. Contour normal. HEART AND VASCULAR STRUCTURES: Heart normal in size. Normal vasculature. BONES: No acute findings. Previous kyphoplasty. HARDWARE: Surgical clips. OTHER: No other significant finding. IMPRESSION: NO ACUTE RADIOGRAPHIC FINDING IN THE CHEST. TECHNICAL DOCUMENTATION: JOB ID: [id number]
[2016-10-30] MEDS ORDERED: IPRATROPIUM/ALBUTEROL 0.5-2.5 MG/3 ML AMPUL NEB ONE (07:33)
[2016-10-30] MEDS ORDERED: ALBUTEROL SULFATE 0.083% NEB 2.5 MG/3 ML AMPUL NEB ONE (07:33)
[2016-10-30 07:55] LABS: VENOUS BLOOD BASE EXCESS 5.6 mmol/L; VENOUS BLOOD HCO3 30.4 mmol/L (20-32); VENOUS BLOOD PCO2 45.3 mmHg (35-63); VENOUS BLOOD PH 7.45 (7.30-7.42)
[2016-10-30 08:08] LABS: ALANINE AMINOTRANSFERASE 17 U/L (9-52); ALBUMIN 3.6 g/dL (3.5-5.0); ALKALINE PHOSPHATASE 80 U/L (38-126); ANION GAP 14 (5-19); ASPARTATE AMINO TRANSFERASE 22 U/L (14-36); BILIRUBIN,DIRECT 0.4 mg/dL (0.0-0.4); BILIRUBIN,TOTAL 0.5 mg/dL (0.2-1.3); BLOOD UREA NITROGEN 39 mg/dL (7-20); CARBON DIOXIDE 27 mmol/L (22-30); CHLORIDE 101 mmol/L (98-107); CREATININE RESULT 2.22 mg/dL (0.52-1.25); GLUCOSE 93 mg/dL (75-110); POTASSIUM 3.8 mmol/L (3.6-5.0); SODIUM 142.3 mmol/L (137-145); TOTAL PROTEIN 6.7 g/dL (6.3-8.2)
[2016-10-30 08:09] LABS: HEMATOCRIT 30.2 % (36.0-47.0); HEMOGLOBIN 9.5 g/dL (12.0-15.5); HGB HCT DIFFERENCE -1.7; MEAN CORPUSCULAR HEMOGLOBIN 27.3 pg (27.0-33.4); MEAN CORPUSCULAR HGB CONC 31.6 g/dL (32.0-36.0); MEAN CORPUSCULAR VOLUME 87 fl (80-97); RED BLOOD COUNT 3.49 10^6/uL (3.72-5.28); RED CELL DISTRIBUTION WIDTH 17.4 % (11.5-14.0)
[2016-10-30 08:10] LABS: PROTHROMBIN TIME 14.2 SEC (11.4-15.4)
[2016-10-30 08:28] LABS: APPEARANCE,URINE SLIGHTLY-CLOUDY; BILIRUBIN,URINE NEGATIVE (NEGATIVE); GLUCOSE, URINE NEGATIVE (NEGATIVE); KETONES,URINE TRACE mg/dL (NEGATIVE); LEUKOCYTE ESTERASE,URINE LARGE (NEGATIVE); NITRITE,URINE NEGATIVE (NEGATIVE); PROTEIN,URINE 30 mg/dL (NEGATIVE); URINE SPECIFIC GRAVITY 1.018; UROBILINOGEN,URINE NEGATIVE mg/dL (<2.0)
[2016-10-30 08:32] LABS: BAND NEUTROPHILS % (MANUAL) 1 % (3-5); BASOPHILS % (MANUAL) 0 % (0-2); EOSINOPHILS % (MANUAL) 0 % (0-6); LYMPHOCYTES % (MANUAL) 5 % (13-45); TOTAL CELLS COUNTED 100
[2016-10-30 08:33] LABS: ANISOCYTOSIS 2+; HYPOCHROMASIA SLIGHT; OVALOCYTES 1+; POIKILOCYTOSIS 1+; POLYCHROMASIA SLIGHT; TOXIC GRANULATION SLIGHT
[2016-10-30] MEDS ORDERED: LEVOFLOXACIN 500 MG/D5W RTU 100 ML IV ONE (08:36)
[2016-10-30] MEDS: NORMAL SALINE 1000 ML 1,000 ML IV PRN ×2 (09:09→09:11)
[2016-10-30] MEDS ORDERED: LIDOCAINE 5% (700 MG) TRANSDERMAL ADH..PATCH TP ONE (09:25)
[2016-10-30] MEDS ORDERED: MORPHINE SULFATE 10 MG/ML INJ IV ONE (09:58)
[2016-10-30] MEDS ORDERED: NORMAL SALINE 1000 ML 1,000 ML IV ONE (10:00)
--- NOTE | 2016-10-30 10:00 | ER Document Report ---
ED General - General Chief Complaint: Shortness Of Breath Stated Complaint: DIFFICULTY BREATHING Time Seen by Provider: 10/30/16 06:28 TRAVEL OUTSIDE OF THE [place] IN LAST 30 DAYS: No - HPI Patient complains to provider of: Shortness of breath Notes: Patient is coming in from local [facility] facility for shortness of breath. Patient was found to be hypoxic by EMS and placed on nonrebreather. Upon arrival here to the ER patient still tachypneic states she has been on BiPAP for asking for BiPAP. Patient denies any chest pain abdominal pain nausea vomiting. Patient does have a history of lung cancer and according to [facility] paperwork is a DNR. - Related Data Allergies/Adverse Reactions: Penicillins Allergy (Verified 08/23/16 14:32) Hives Home Medications: Current Home Medications Albuterol Sulfate [Proair Hfa Inhalation Aerosol 8.5 gm Mdi] 2 puff IH Q4HP PRN 10/30/16 [History] Amlodipine Besylate [Norvasc 5 mg Tablet] 5 mg PO DAILY 10/30/16 [History] Atorvastatin Calcium [Lipitor 10 mg Tablet] 10 mg PO QHS 10/30/16 [History] Budesonide/Formoterol Fumarate [Symbicort Hfa 160-4.5 Mcg Inhaler 6 gm] 1 puff IH Q12 10/30/16 [History] Citalopram Hydrobromide [Celexa 20 mg Tablet] 20 mg PO DAILY 10/30/16 [History] Clonidine HCl [Catapres 0.1 mg Tablet] 0.1 mg PO Q12 10/30/16 [History] Ergocalciferol (Vitamin D2) [Drisdol 50,000 Unit (1.25MG) Capsule] 50,000 units PO [id number] 10/30/16 [History] Fluconazole [Diflucan 100 Mg Tablet] 100 mg PO DAILY 10/30/16 [History] Ipratropium/Albuterol Sulfate [Duoneb 3 ml Ampul] 3 ml NEB RTQ6HP PRN 10/30/16 [ History] Levocetirizine Dihydrochloride [Xyzal] 5 mg PO QHS 10/30/16 [History] Levofloxacin [Levaquin 750 mg Tablet] 750 mg PO DAILY 10/30/16 [History] Linezolid [Zyvox 600 mg Tablet] 600 mg PO Q12 10/30/16 [History] Losartan Potassium [Cozaar 100 mg Tablet] 100 mg PO DAILY 10/30/16 [History] Mirtazapine 7.5 mg PO QHS 10/30/16 [History] Omeprazole 40 mg PO DAILY 10/30/16 [History] Oxycodone HCl/Acetaminophen [Percocet 10-325 Mg Tablet] 1 tab PO Q6HP PRN [History] Prednisone [Deltasone 20 mg Tablet] 40 mg PO DAILY 10/30/16 [History] Pregabalin [Lyrica 75 mg Capsule] 75 mg PO Q8 10/30/16 [History] Tiotropium Pooler [Spiriva Handihaler 18 mcg/dose (30 Dose)] 1 cap IH DAILY [History] Past Medical History - Social History Smoking Status: Unknown if Ever Smoked Drug Abuse: None Family History: None - Past Medical History Cardiac Medical History: Reports: Hx Hypercholesterolemia, Hx Hypertension Denies: Hx Coronary Artery Disease, Hx Heart Attack Pulmonary Medical History: Reports: Hx Asthma, Hx Bronchitis, Hx COPD, Hx Pneumonia - gram-negative and MRSA pneumonia Denies: Hx Tuberculosis Neurological Medical History: Denies: Hx Cerebrovascular Accident, Hx Seizures Renal/ Medical History: Denies: Hx Peritoneal Dialysis Malignancy Medical History: Reports: Hx Lung Cancer - Squamous cell lung cancer , stage I GI Medical History: Reports: Hx Gastroesophageal Reflux Disease Musculoskeltal Medical History: Reports Hx Arthritis - RA all over Psychiatric Medical History: Reports: Hx Anxiety, Hx Depression Infectious Medical History: Reports: Hx MRSA - History of MRSA pneumonia Past Surgical History: Reports: Hx Abdominal Surgery - gastric bypass, sbo, Hx Appendectomy, Hx Cholecystectomy, Hx Hysterectomy, Hx Orthopedic Surgery - Immunizations Immunizations up to date: Yes Hx Diphtheria, Pertussis, Tetanus Vaccination: No Hx Pneumococcal Vaccination: 04/14/12 Review of Systems - Review of Systems Constitutional: No symptoms reported EENT: No symptoms reported Cardiovascular: No symptoms reported Respiratory: Short of breath, Wheezing Gastrointestinal: No symptoms reported Genitourinary: No symptoms reported Female Genitourinary: No symptoms reported Musculoskeletal: No symptoms reported Skin: No symptoms reported Hematologic/Lymphatic: No symptoms reported Neurological/Psychological: No symptoms reported -: Yes All other systems reviewed and negative Physical Exam - Vital signs Vitals: Pulse Ox 98 10/30/16 06:17 Interpretation: Tachycardic, Tachypneic - General General appearance: Appears well, Alert - HEENT Head: Normocephalic, Atraumatic Eyes: Normal Pupils: PERRL - Respiratory Respiratory status: No respiratory distress, Respiratory distress - Moderate, Tachypnea Chest status: Nontender Breath sounds: Wheezing Chest palpation: Normal - Cardiovascular Rhythm: Tachycardia Heart sounds: Normal auscultation Murmur: No - Abdominal Inspection: Normal Distension: No distension Bowel sounds: Normal Tenderness: Nontender Organomegaly: No organomegaly - Back Back: Normal, Nontender - Extremities General upper extremity: Normal inspection, Nontender, Normal color, Normal ROM , Normal temperature General lower extremity: Normal inspection, Nontender, Normal color, Normal ROM , Normal temperature, Normal weight bearing. No: Nissa's sign - Neurological Neuro grossly intact: Yes Cognition: Normal Orientation: AAOx4 Jorge Coma Scale Eye Opening: Spontaneous Buckley Coma Scale Verbal: Oriented Buckley Coma Scale Motor: Obeys Commands Jorge Coma Scale Total: 15 Speech: Normal Motor strength normal: LUE, RUE, LLE, RLE Sensory: Normal - Psychological Associated symptoms: Normal affect, Normal mood - Skin Skin Temperature: Warm Skin Moisture: Dry Skin Color: Normal Course - Re-evaluation Re-evalutation: 10/30/16 14:17 Chest x-ray does not show any pathology. Patient's respiratory state improved after placing on BiPAP patient was given a dose of bronchodilating medication. Urinalysis does show signs of infection will start the patient on antibiotics concerned about possible early sepsis patient does have a leukocytosis of 20, 000 lactic acid elevation discussed with PCP agrees with admission at this time patient does have EKG changes with inverted T waves in the fused lateral leads and slight elevation in troponin will likely this is related to the patient's underlying sickness and sepsis patient is chest pain-free at this time do not think patient has acute coronary 10/30/16 14:17 - Vital Signs Vital signs: Temp Pulse Resp BP Pulse Ox 98.0 F 125 H 25 H 163/116 H 97 10/30/16 12:22 10/30/16 12:58 10/30/16 12:00 10/30/16 12:22 10/30/16 12:22 - Laboratory Result Diagrams: 10/30/16 07:20 10/30/16 07:20 Laboratory results interpreted by me: 10/30/16 10/30/16 10/30/16 07:20 07:20 07:38 WBC 22.0 H RBC 3.49 L Hgb 9.5 L Hct 30.2 L MCHC 31.6 L RDW 17.4 H Seg Neuts % (Manual) 92 H Band Neutrophils % 1 L Lymphocytes % (Manual) 5 L Monocytes % (Manual) 2 L Abs Neuts (Manual) 20.5 H VBG pH BUN 39 H Creatinine 2.22 H Est GFR ( Amer) 26 L Est GFR (Non-Af Amer) 22 L Lactic Acid 2.3 H Urine Protein Urine Ketones Urine Blood Ur Leukocyte Esterase 10/30/16 10/30/16 07:38 07:54 WBC RBC Hgb Hct MCHC RDW Seg Neuts % (Manual) Band Neutrophils % Lymphocytes % (Manual) Monocytes % (Manual) Abs Neuts (Manual) VBG pH 7.45 H BUN Creatinine Est GFR ( Amer) Est GFR (Non-Af Amer) Lactic Acid Urine Protein 30 H Urine Ketones TRACE H Urine Blood SMALL H Ur Leukocyte Esterase LARGE H Critical Care Note - Critical Care Note Total time excluding time spent on procedures (mins): 35 Comments: Multiple evaluations for respiratory distress and sepsis. Discharge - Discharge Clinical Impression: Malignant neoplasm metastatic to left lung, Acute chronic obstructive pulmonary disease with respiratory distress Sepsis Qualifiers: Sepsis type: sepsis due to unspecified organism Qualified Code(s): A41.9 - Sepsis, unspecified organism Admitting Provider: Lenore Unit Admitted: [facility]
--- NOTE | 2016-10-30 12:02 | EKG REPORT ---
SEVERITY:- ABNORMAL ECG - ATRIAL FIBRILLATION, V-RATE 116-126 PAIRED VENTRICULAR PREMATURE COMPLEXES CONSIDER RVH W/ SECONDARY REPOL ABNORMALITY INFERIOR INFARCT, AGE INDETERMINATE LATERAL LEADS ARE ALSO INVOLVED PROLONGED QT INTERVAL : Confirmed by: Kristie Rivera MD 30-Oct-2016 12:02:17
--- NOTE | 2016-10-30 12:02 | EKG REPORT ---
SEVERITY:- ABNORMAL ECG - SINUS TACHYCARDIA VENTRICULAR PREMATURE COMPLEX LAD, CONSIDER LAFB OR INFERIOR INFARCT PROBABLE RVH W/ SECONDARY REPOL ABNORMALITY ABNORMAL T, CONSIDER ISCHEMIA, LATERAL LEADS : Confirmed by: Kristie Rivera MD 30-Oct-2016 12:02:21
[2016-10-30] MEDS ORDERED: IPRATROPIUM/ALBUTEROL 0.5-2.5 MG/3 ML AMPUL NEB PRN (17:41)
[2016-10-30] MEDS ORDERED: (PENDING PHARMACY ID) (Oxycodone Hcl/Acetaminophen [Percocet 10-325 Mg Tablet] 1 TAB) PO PRN (17:41)
[2016-10-30] MEDS ORDERED: OXYCODONE HCL IR 5 MG TABLET PO PRN (17:49)
[2016-10-30] MEDS ORDERED: ERGOCALCIFEROL (VITAMIN D2) 50000 UNIT (1.25 MG) CAPSULE PO SCH (18:00)
--- NOTE | 2016-10-30 18:15 | PDOC H&P ---
History of Present Illness Admission Date/PCP: 10/30/16 10:06 NATACHA ENGLAND MD History of Present Illness: HUNTER GRANADOS is a 71 year old female, She was just discharged from this hospital about 3 days ago when she was admitted for the management of MRSA and Pseudomonas pneumonia she was treated with intravenous Zyvox and aztreonam she was discharged on p.o. Zyvox and p.o. Levaquin to the halfway. She was transferred from the halfway this morning because of respiratory distress, in the emergency room she was evaluated, her breathing was supported with noninvasive positive pressure ventilation, BiPAP further evaluation in the emergency room showed evidence of UTI the urine dipstick was grossly abnormal with pyuria, bacteriuria. Because of the severe leukocytosis, acute kidney injury the ER physician is suggesting that patient needed to be admitted inpatient for management. I spoke to patient and family today about hospice care it seems that she is hospice appropriate at this time of her illness but patient declined hospice. She has multiple comorbid conditions including end- stage COPD, chronic respiratory failure on home oxygen, malignant neoplasm of the lung squamous cell that has not been treated because of the frequent intercurrent illnesses. Chronic debilitation overall poor condition, sedentary lifestyle chronic pain multiple thoracic vertebrae fracture from osteoporosis overall prognosis is very poor in this patient she is a DNR status. Past Medical History Cardiac Medical History: Reports: Hyperlipidema, Hypertension Pulmonary Medical History: Reports: Asthma, Bronchitis, Chronic Obstructive Pulmonary Disease (COPD), Pneumonia - gram-negative and MRSA pneumonia Denies: Tuberculosis Neurological Medical History: Denies: Seizures Malignancy Medical History: Reports: Lung Cancer - Squamous cell lung cancer, stage I GI Medical History: Reports: Gastroesophageal Reflux Disease Musculoskeltal Medical History: Reports: Arthritis - RA all over Psychiatric Medical History: Reports: Depression Hematology: Reports: Anemia Infectious Medical History: Reports: 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 Past Surgical History Past Surgical History: Reports: Appendectomy, Cholecystectomy, Hysterectomy, Orthopedic Surgery Social History Smoking Status: Former Smoker Frequency of Alcohol Use: None Hx Recreational Drug Use: No Drugs: None Hx Prescription Drug Abuse: No - Advance Directive Resuscitation Status: Do Not Resuscitate Family History Family History: None Parental Family History Reviewed: Yes Children Family History Reviewed: Yes Sibling(s) Family History Reviewed.: Yes Medication/Allergy Home Medications: Albuterol Sulfate [Proair HFA] 1 puff IH PRN PRN 10/08/14 Fluconazole [Diflucan] 100 mg PO DAILY 10/08/14 Prednisone [Deltasone 20 mg Tablet] 40 mg PO DAILY #0 tablet 03/13/15 Albuterol Sulfate [Proair Hfa Inhalation Aerosol 8.5 gm Mdi] 2 puff IH Q4HP PRN 10/30/16 Amlodipine Besylate [Norvasc 5 mg Tablet] 5 mg PO DAILY 10/30/16 Atorvastatin Calcium [Lipitor 10 mg Tablet] 10 mg PO QHS 10/30/16 Budesonide/Formoterol Fumarate [Symbicort Hfa 160-4.5 Mcg Inhaler 6 gm] 1 puff IH Q12 10/30/16 Citalopram Hydrobromide [Celexa 20 mg Tablet] 20 mg PO DAILY 10/30/16 Clonidine HCl [Catapres 0.1 mg Tablet] 0.1 mg PO Q12 10/30/16 Ergocalciferol (Vitamin D2) [Drisdol 50,000 Unit (1.25MG) Capsule] 50,000 units PO [id number] 10/30/16 Fluconazole [Diflucan 100 Mg Tablet] 100 mg PO DAILY 10/30/16 Ipratropium/Albuterol Sulfate [Duoneb 3 ml Ampul] 3 ml NEB RTQ6HP PRN 10/30/16 Levocetirizine Dihydrochloride [Xyzal] 5 mg PO QHS 10/30/16 Levofloxacin [Levaquin 750 mg Tablet] 750 mg PO DAILY 10/30/16 Linezolid [Zyvox 600 mg Tablet] 600 mg PO Q12 10/30/16 Losartan Potassium [Cozaar 100 mg Tablet] 100 mg PO DAILY 10/30/16 Mirtazapine 7.5 mg PO QHS 10/30/16 Omeprazole 40 mg PO DAILY 10/30/16 Oxycodone HCl/Acetaminophen [Percocet 10-325 Mg Tablet] 1 tab PO Q6HP PRN Prednisone [Deltasone 20 mg Tablet] 40 mg PO DAILY 10/30/16 Pregabalin [Lyrica 75 mg Capsule] 75 mg PO Q8 10/30/16 Tiotropium Colt [Spiriva Handihaler 18 mcg/dose (30 Dose)] 1 cap IH DAILY Allergies/Adverse Reactions: Penicillins Allergy (Verified 08/23/16 14:32) Hives Review of Systems Constitutional: PRESENT: anorexia, fatigue Cardiovascular: PRESENT: dyspnea on exertion Respiratory: PRESENT: dyspnea Gastrointestinal: PRESENT: nausea Genitourinary: PRESENT: difficulty urinating, nocturia Musculoskeletal: PRESENT: back pain, muscle weakness Neurological: PRESENT: abnormal gait Physical Exam Vital Signs: Temp Pulse Resp BP Pulse Ox 98.0 F 125 H 26 H 163/116 H 97 10/30/16 12:22 10/30/16 12:58 10/30/16 16:15 10/30/16 12:22 10/30/16 12:22 Intake & Output 10/29/16 10/30/16 10/31/16 06:59 06:59 06:59 Weight 66.5 kg General appearance: PRESENT: severe distress Eye exam: PRESENT: PERRLA Respiratory exam: PRESENT: decreased breath sounds Cardiovascular exam: PRESENT: +S1, +S2 GI/Abdominal exam: PRESENT: soft Neurological exam: PRESENT: alert, CN II-XII grossly intact Results Laboratory Results: 10/30/16 11:40 Lactic Acid 1.7 Impressions: Chest X-Ray 10/30/16 06:20 IMPRESSION: NO ACUTE RADIOGRAPHIC FINDING IN THE CHEST. Assessment & Plan - Diagnosis (1) Acute respiratory failure Qualifiers: Respiratory failure complication: hypoxia and hypercapnia Qualified Code(s): J96.01 - Acute respiratory failure with hypoxia; J96.02 - Acute respiratory failure with hypercapnia Is this a current diagnosis for this admission?: Yes (2) Urinary tract infection Is this a current diagnosis for this admission?: Yes (3) Acute respiratory failure with hypoxia and hypercapnia Is this a current diagnosis for this admission?: Yes (4) Squamous cell lung cancer Qualifiers: Laterality: left Qualified Code(s): C34.92 - Malignant neoplasm of unspecified part of left bronchus or lung (5) Very severe chronic obstructive pulmonary disease Is this a current diagnosis for this admission?: Yes (6) GERD (gastroesophageal reflux disease) Qualifiers: Esophagitis presence: with esophagitis Qualified Code(s): K21.0 - Gastro-esophageal reflux disease with esophagitis - Plan Summary Plan Summary: Patient is admitted into the hospital for management.
[2016-10-30 20:22] LABS: THYROID STIMULATING HORMONE 7.99 uIU/mL (0.47-4.68)
[2016-10-30] MEDS ORDERED: ENOXAPARIN SODIUM INJ 30 MG/0.3 ML DISP.SYRIN SUBCUT ONE (21:00)
[2016-10-30] MEDS: PREGABALIN 75 MG CAPSULE PO SCH (21:45)
[2016-10-30] MEDS: CLONIDINE HCL 0.1 MG TABLET PO SCH (21:45)
[2016-10-30] MEDS: OXYCODONE-ACETAMINOPHEN 5-325 MG TABLET PO PRN (21:46)
[2016-10-30] MEDS: ATORVASTATIN CALCIUM 10 MG TABLET PO SCH (21:47)
[2016-10-30] MEDS: LINEZOLID 600 MG TABLET PO SCH (21:47)
[2016-10-30] MEDS: MIRTAZAPINE 15 MG TABLET PO SCH (21:47)
[2016-10-30] MEDS: BUDESONIDE/FORMOTEROL 160-4.5 MCG 60 PUFF/6 GM MDI IH SCH (21:48)
[2016-10-30] MEDS: CETIRIZINE 5 MG TABLET PO SCH (21:48)
[2016-10-31] MEDS: PREGABALIN 75 MG CAPSULE PO SCH ×3 (05:10→21:20)
[2016-10-31 07:19] LABS: ABSOLUTE BASOPHILS # (AUTO) 0.1 10^3/uL (0.0-0.2); ABSOLUTE LYMPHOCYTES (AUTO) 1.7 10^3/uL (0.5-4.7); ABSOLUTE MONOCYTES (AUTO) 1.1 10^3/uL (0.1-1.4); ABSOLUTE NEUT (AUTO) 11.7 10^3/uL (1.7-8.2); BASOPHILS % (AUTO) 0.4 % (0-2); EOSINOPHILS % (AUTO) 0.1 % (0-6); HEMATOCRIT 24.4 % (36.0-47.0); LYMPHOCYTES % (AUTO) 11.6 % (13-45); MEAN CORPUSCULAR HEMOGLOBIN 27.6 pg (27.0-33.4); MEAN CORPUSCULAR HGB CONC 31.9 g/dL (32.0-36.0); MEAN CORPUSCULAR VOLUME 87 fl (80-97); MONOCYTES % (AUTO) 7.9 % (3-13); RED BLOOD COUNT 2.82 10^6/uL (3.72-5.28); RED CELL DISTRIBUTION WIDTH 17.2 % (11.5-14.0); WHITE BLOOD COUNT 14.6 10^3/uL (4.0-10.5)
[2016-10-31 07:24] LABS: ANION GAP 13 (5-19); BLOOD UREA NITROGEN 34 mg/dL (7-20); CALCIUM 7.9 mg/dL (8.4-10.2); CARBON DIOXIDE 26 mmol/L (22-30); CHLORIDE 107 mmol/L (98-107); CREATINE KINASE 417 U/L (30-135); CREATININE RESULT 1.32 mg/dL (0.52-1.25); GLUCOSE 71 mg/dL (75-110); POTASSIUM 3.6 mmol/L (3.6-5.0)
[2016-10-31 07:29] LABS: HEMOGLOBIN 7.8 g/dL (12.0-15.5)
[2016-10-31] MEDS: FLUCONAZOLE 100 MG TABLET PO SCH (09:45)
[2016-10-31] MEDS: AMLODIPINE BESYLATE 5 MG TABLET PO SCH (09:45)
[2016-10-31] MEDS: PREDNISONE 20 MG TABLET PO SCH (09:46)
[2016-10-31] MEDS: LOSARTAN POTASSIUM 50 MG TABLET PO SCH (09:46)
[2016-10-31] MEDS: LINEZOLID 600 MG TABLET PO SCH ×2 (09:47→21:21)
[2016-10-31] MEDS: CLONIDINE HCL 0.1 MG TABLET PO SCH ×2 (09:47→21:22)
[2016-10-31] MEDS: CITALOPRAM HYDROBROMIDE 20 MG TABLET PO SCH (09:47)
[2016-10-31] MEDS: TIOTROPIUM BROMIDE DPI 5 CAP/KIT (18 MCG/CAP) IH SCH (09:48)
[2016-10-31] MEDS: LANSOPRAZOLE 30 MG TAB.RAP.DR PO SCH (09:48)
[2016-10-31] MEDS: BUDESONIDE/FORMOTEROL 160-4.5 MCG 60 PUFF/6 GM MDI IH SCH ×2 (09:49→21:21)
[2016-10-31] MEDS: OXYCODONE-ACETAMINOPHEN 5-325 MG TABLET PO PRN (09:50)
[2016-10-31] MEDS: ENOXAPARIN SODIUM INJ 30 MG/0.3 ML DISP.SYRIN SUBCUT SCH (09:51)
[2016-10-31] MEDS ORDERED: PREDNISONE 20 MG TABLET PO SCH (10:00)
[2016-10-31] MEDS ORDERED: LEVOFLOXACIN 750 MG TABLET PO SCH (10:00)
[2016-10-31 15:01] LABS: HEMATOCRIT 25.8 % (36.0-47.0); HEMOGLOBIN 8.2 g/dL (12.0-15.5); HGB HCT DIFFERENCE -1.2; MEAN CORPUSCULAR HEMOGLOBIN 27.7 pg (27.0-33.4); MEAN CORPUSCULAR HGB CONC 31.7 g/dL (32.0-36.0); MEAN CORPUSCULAR VOLUME 87 fl (80-97); RED BLOOD COUNT 2.95 10^6/uL (3.72-5.28); WHITE BLOOD COUNT 13.6 10^3/uL (4.0-10.5)
[2016-10-31 15:08] LABS: BAND NEUTROPHILS % (MANUAL) 1 % (3-5); BASOPHILS % (MANUAL) 0 % (0-2); EOSINOPHILS % (MANUAL) 0 % (0-6); LYMPHOCYTES % (MANUAL) 4 % (13-45); TOTAL CELLS COUNTED 100
[2016-10-31 15:19] LABS: POLYCHROMASIA SLIGHT; TOXIC GRANULATION SLIGHT
[2016-10-31 15:21] LABS: ANISOCYTOSIS 1+
[2016-10-31] MEDS: LEVOFLOXACIN 500 MG/D5W RTU 500 MG/100 ML RTUPB IV SCH (20:09)
[2016-10-31] MEDS: MIRTAZAPINE 15 MG TABLET PO SCH (21:21)
[2016-10-31] MEDS: CETIRIZINE 5 MG TABLET PO SCH (21:21)
[2016-10-31] MEDS: ATORVASTATIN CALCIUM 10 MG TABLET PO SCH (21:21)
--- NOTE | 2016-10-31 21:46 | PDOC PROGRESS REPORT ---
Subjective Progress Note for:: 10/31/16 Subjective:: Patient's condition is very precarious, she was seen by hospice nurse today, she was seen by the bedside with family. Physical Exam Vital Signs: Temp Pulse Resp BP Pulse Ox 98.2 F 91 17 87/49 L 100 10/31/16 20:04 10/31/16 20:04 10/31/16 20:04 10/31/16 20:04 10/31/16 20:04 Intake & Output 10/30/16 10/31/16 11/01/16 06:59 06:59 06:59 Intake Total 240 325 Output Total 400 Balance 240 -75 Weight 71.5 kg General appearance: PRESENT: mild distress Eye exam: PRESENT: PERRLA Respiratory exam: PRESENT: wheezes Cardiovascular exam: PRESENT: +S1, +S2 Neurological exam: PRESENT: alert Results Laboratory Results: 10/31/16 14:21 10/31/16 06:49 10/31/16 10/31/16 10/31/16 06:49 06:49 14:21 WBC 14.6 H 13.6 H RBC 2.82 L 2.95 L Hgb 7.8 L 8.2 L Hct 24.4 L 25.8 L MCV 87 87 MCH 27.6 27.7 MCHC 31.9 L 31.7 L RDW 17.2 H 18.0 H Plt Count 272 242 Seg Neutrophils % 80.0 H Not Reportable Lymphocytes % 11.6 L Not Reportable Monocytes % 7.9 Not Reportable Eosinophils % 0.1 Not Reportable Basophils % 0.4 Not Reportable Absolute Neutrophils 11.7 H Not Reportable Absolute Lymphocytes 1.7 Not Reportable Absolute Monocytes 1.1 Not Reportable Absolute Eosinophils 0.0 Not Reportable Absolute Basophils 0.1 Not Reportable Sodium 146.0 H Potassium 3.6 Chloride 107 Carbon Dioxide 26 Anion Gap 13 BUN 34 H Creatinine 1.32 H Est GFR ( Amer) 48 L Est GFR (Non-Af Amer) 39 L Glucose 71 L Calcium 7.9 L 10/30/16 10/30/16 10/31/16 18:50 18:50 00:40 Creatine Kinase 427 H 421 H Troponin I 0.083 10/31/16 10/31/16 10/31/16 00:40 06:49 06:49 Creatine Kinase 417 H Troponin I 0.073 0.057 Impressions: Chest X-Ray 10/30/16 06:20 IMPRESSION: NO ACUTE RADIOGRAPHIC FINDING IN THE CHEST. Assessment & Plan - Diagnosis (1) Acute respiratory failure Qualifiers: Respiratory failure complication: hypoxia and hypercapnia Qualified Code(s): J96.01 - Acute respiratory failure with hypoxia Is this a current diagnosis for this admission?: Yes (2) Urinary tract infection Is this a current diagnosis for this admission?: Yes (3) Acute respiratory failure with hypoxia and hypercapnia Is this a current diagnosis for this admission?: Yes (4) Squamous cell lung cancer Qualifiers: Laterality: left Qualified Code(s): C34.92 - Malignant neoplasm of unspecified part of left bronchus or lung (5) Very severe chronic obstructive pulmonary disease Is this a current diagnosis for this admission?: Yes (6) GERD (gastroesophageal reflux disease) Qualifiers: Esophagitis presence: with esophagitis Qualified Code(s): K21.0 - Gastro-esophageal reflux disease with esophagitis
[2016-11-01 04:54] LABS: ABSOLUTE MONOCYTES (AUTO) 0.5 10^3/uL (0.1-1.4); ABSOLUTE NEUT (AUTO) 7.8 10^3/uL (1.7-8.2); BASOPHILS % (AUTO) 0.1 % (0-2); HEMATOCRIT 23.1 % (36.0-47.0); HGB HCT DIFFERENCE -0.3; LYMPHOCYTES % (AUTO) 11.1 % (13-45); MEAN CORPUSCULAR HEMOGLOBIN 28.2 pg (27.0-33.4); MEAN CORPUSCULAR HGB CONC 32.8 g/dL (32.0-36.0); MEAN CORPUSCULAR VOLUME 86 fl (80-97); MONOCYTES % (AUTO) 5.3 % (3-13); RED BLOOD COUNT 2.69 10^6/uL (3.72-5.28); RED CELL DISTRIBUTION WIDTH 17.6 % (11.5-14.0); SEGMENTED NEUTROPHILS % (AUTO) 83.5 % (42-78); WHITE BLOOD COUNT 9.3 10^3/uL (4.0-10.5)
[2016-11-01 05:07] LABS: HEMOGLOBIN 7.6 g/dL (12.0-15.5)
[2016-11-01 05:15] LABS: ANION GAP 9 (5-19); BLOOD UREA NITROGEN 34 mg/dL (7-20); CALCIUM 7.7 mg/dL (8.4-10.2); CARBON DIOXIDE 27 mmol/L (22-30); CHLORIDE 107 mmol/L (98-107); CREATININE RESULT 1.13 mg/dL (0.52-1.25); GLUCOSE 110 mg/dL (75-110); POTASSIUM 3.5 mmol/L (3.6-5.0); SODIUM 143.2 mmol/L (137-145)
[2016-11-01] MEDS: PREGABALIN 75 MG CAPSULE PO SCH ×3 (06:36→20:50)
[2016-11-01] MEDS: LANSOPRAZOLE 30 MG TAB.RAP.DR PO SCH (10:25)
[2016-11-01] MEDS: CLONIDINE HCL 0.1 MG TABLET PO SCH ×2 (10:26→20:49)
[2016-11-01] MEDS: FLUCONAZOLE 100 MG TABLET PO SCH (10:26)
[2016-11-01] MEDS: AMLODIPINE BESYLATE 5 MG TABLET PO SCH (10:27)
[2016-11-01] MEDS: LINEZOLID 600 MG TABLET PO SCH ×2 (10:28→20:49)
[2016-11-01] MEDS: LOSARTAN POTASSIUM 50 MG TABLET PO SCH (10:28)
[2016-11-01] MEDS: PREDNISONE 20 MG TABLET PO SCH (10:28)
[2016-11-01] MEDS: CITALOPRAM HYDROBROMIDE 20 MG TABLET PO SCH (10:29)
[2016-11-01] MEDS: BUDESONIDE/FORMOTEROL 160-4.5 MCG 60 PUFF/6 GM MDI IH SCH ×2 (10:30→20:51)
[2016-11-01] MEDS: ALBUTEROL SULFATE HFA (90 MCG/PUFF) 200 PUFF/8.5 GM MDI IH PRN (10:30)
[2016-11-01] MEDS: TIOTROPIUM BROMIDE DPI 5 CAP/KIT (18 MCG/CAP) IH SCH (10:31)
[2016-11-01] MEDS: ENOXAPARIN SODIUM INJ 30 MG/0.3 ML DISP.SYRIN SUBCUT SCH (10:32)
[2016-11-01] MEDS ORDERED: POLYETHYLENE GLYCOL 3350 POWDER 17 GM/1 PACKET PO PRN (19:06)
[2016-11-01] MEDS: LEVOFLOXACIN 500 MG/D5W RTU 500 MG/100 ML RTUPB IV SCH (20:49)
[2016-11-01] MEDS: MIRTAZAPINE 15 MG TABLET PO SCH (20:50)
[2016-11-01] MEDS: ATORVASTATIN CALCIUM 10 MG TABLET PO SCH (20:50)
[2016-11-01] MEDS: CETIRIZINE 5 MG TABLET PO SCH (20:51)
--- NOTE | 2016-11-01 21:59 | PDOC PROGRESS REPORT ---
Subjective Progress Note for:: 11/01/16 Subjective:: She was seen again by the hospice nurse, she is agreeable to go on hospice once she is [facility]. Physical Exam Vital Signs: Temp Pulse Resp BP Pulse Ox 98.0 F 81 20 106/60 100 11/01/16 19:30 11/01/16 19:30 11/01/16 19:30 11/01/16 19:30 11/01/16 19:30 Intake & Output 10/31/16 11/01/16 11/02/16 06:59 06:59 06:59 Intake Total 240 625 822 Output Total 950 475 Balance 240 -325 347 Weight 71.5 kg 71.6 kg General appearance: PRESENT: no acute distress Eye exam: PRESENT: PERRLA Respiratory exam: PRESENT: rhonchi Cardiovascular exam: PRESENT: +S1, +S2 GI/Abdominal exam: PRESENT: soft Neurological exam: PRESENT: alert, CN II-XII grossly intact Results Laboratory Results: 11/01/16 04:07 11/01/16 04:07 11/01/16 11/01/16 04:07 04:07 WBC 9.3 RBC 2.69 L Hgb 7.6 L Hct 23.1 L MCV 86 MCH 28.2 MCHC 32.8 RDW 17.6 H Plt Count 223 Seg Neutrophils % 83.5 H Lymphocytes % 11.1 L Monocytes % 5.3 Eosinophils % 0.0 Basophils % 0.1 Absolute Neutrophils 7.8 Absolute Lymphocytes 1.0 Absolute Monocytes 0.5 Absolute Eosinophils 0.0 Absolute Basophils 0.0 Sodium 143.2 Potassium 3.5 L Chloride 107 Carbon Dioxide 27 Anion Gap 9 BUN 34 H Creatinine 1.13 Est GFR ( Amer) 57 L Est GFR (Non-Af Amer) 47 L Glucose 110 Calcium 7.7 L 10/30/16 10/30/16 10/31/16 18:50 18:50 00:40 Creatine Kinase 427 H 421 H Troponin I 0.083 10/31/16 10/31/16 10/31/16 00:40 06:49 06:49 Creatine Kinase 417 H Troponin I 0.073 0.057 Impressions: Chest X-Ray 10/30/16 06:20 IMPRESSION: NO ACUTE RADIOGRAPHIC FINDING IN THE CHEST. Assessment & Plan - Diagnosis (1) Acute respiratory failure Qualifiers: Respiratory failure complication: hypoxia and hypercapnia Qualified Code(s): J96.01 - Acute respiratory failure with hypoxia Is this a current diagnosis for this admission?: Yes (2) Urinary tract infection Is this a current diagnosis for this admission?: Yes (3) Acute respiratory failure with hypoxia and hypercapnia Is this a current diagnosis for this admission?: Yes (4) Squamous cell lung cancer Qualifiers: Laterality: left Qualified Code(s): C34.92 - Malignant neoplasm of unspecified part of left bronchus or lung (5) Very severe chronic obstructive pulmonary disease Is this a current diagnosis for this admission?: Yes (6) GERD (gastroesophageal reflux disease) Qualifiers: Esophagitis presence: with esophagitis Qualified Code(s): K21.0 - Gastro-esophageal reflux disease with esophagitis
[2016-11-02 05:21] LABS: ABSOLUTE LYMPHOCYTES (AUTO) 1.1 10^3/uL (0.5-4.7); ABSOLUTE MONOCYTES (AUTO) 0.3 10^3/uL (0.1-1.4); BASOPHILS % (AUTO) 0.4 % (0-2); HEMATOCRIT 24.5 % (36.0-47.0); HGB HCT DIFFERENCE -0.5; MEAN CORPUSCULAR HEMOGLOBIN 28.3 pg (27.0-33.4); MEAN CORPUSCULAR HGB CONC 32.6 g/dL (32.0-36.0); MEAN CORPUSCULAR VOLUME 87 fl (80-97); MONOCYTES % (AUTO) 4.5 % (3-13); RED BLOOD COUNT 2.82 10^6/uL (3.72-5.28); RED CELL DISTRIBUTION WIDTH 17.9 % (11.5-14.0); SEGMENTED NEUTROPHILS % (AUTO) 80.1 % (42-78); WHITE BLOOD COUNT 7.5 10^3/uL (4.0-10.5)
[2016-11-02 05:38] LABS: ANION GAP 9 (5-19); BLOOD UREA NITROGEN 32 mg/dL (7-20); CALCIUM 7.7 mg/dL (8.4-10.2); CARBON DIOXIDE 28 mmol/L (22-30); CHLORIDE 109 mmol/L (98-107); CREATININE RESULT 0.94 mg/dL (0.52-1.25); GLUCOSE 107 mg/dL (75-110); POTASSIUM 3.6 mmol/L (3.6-5.0)
[2016-11-02] MEDS: PREGABALIN 75 MG CAPSULE PO SCH ×3 (06:17→21:12)
[2016-11-02] MEDS: LINEZOLID 600 MG TABLET PO SCH ×2 (09:24→21:14)
[2016-11-02] MEDS: PREDNISONE 20 MG TABLET PO SCH (09:24)
[2016-11-02] MEDS: AMLODIPINE BESYLATE 5 MG TABLET PO SCH (09:25)
[2016-11-02] MEDS: LOSARTAN POTASSIUM 50 MG TABLET PO SCH (09:25)
[2016-11-02] MEDS: LANSOPRAZOLE 30 MG TAB.RAP.DR PO SCH (09:26)
[2016-11-02] MEDS: FLUCONAZOLE 100 MG TABLET PO SCH (09:26)
[2016-11-02] MEDS: CLONIDINE HCL 0.1 MG TABLET PO SCH ×2 (09:26→21:12)
[2016-11-02] MEDS: CITALOPRAM HYDROBROMIDE 20 MG TABLET PO SCH (09:26)
[2016-11-02] MEDS: BUDESONIDE/FORMOTEROL 160-4.5 MCG 60 PUFF/6 GM MDI IH SCH ×2 (09:27→21:12)
[2016-11-02] MEDS: TIOTROPIUM BROMIDE DPI 5 CAP/KIT (18 MCG/CAP) IH SCH (09:27)
[2016-11-02] MEDS: ENOXAPARIN SODIUM INJ 30 MG/0.3 ML DISP.SYRIN SUBCUT SCH (09:41)
--- NOTE | 2016-11-02 15:43 | PDOC PROGRESS REPORT ---
Subjective Progress Note for:: 11/02/16 Subjective:: Patient was seen by the bedside, there is no new complaints Physical Exam Vital Signs: Temp Pulse Resp BP Pulse Ox 97.9 F 77 20 101/63 100 11/02/16 11:33 11/02/16 14:00 11/02/16 11:33 11/02/16 11:33 11/02/16 11:33 Intake & Output 11/01/16 11/02/16 11/03/16 06:59 06:59 06:59 Intake Total 625 1022 118 Output Total 950 1175 200 Balance -325 -153 -82 Weight 71.6 kg 73 kg General appearance: PRESENT: no acute distress Eye exam: PRESENT: PERRLA Respiratory exam: PRESENT: clear to auscultation ghulam Cardiovascular exam: PRESENT: +S1, +S2 GI/Abdominal exam: PRESENT: soft Neurological exam: PRESENT: alert Results Laboratory Results: 11/02/16 04:24 11/02/16 04:24 11/02/16 11/02/16 04:24 04:24 WBC 7.5 RBC 2.82 L Hgb 8.0 L Hct 24.5 L MCV 87 MCH 28.3 MCHC 32.6 RDW 17.9 H Plt Count 219 Seg Neutrophils % 80.1 H Lymphocytes % 15.0 Monocytes % 4.5 Eosinophils % 0.0 Basophils % 0.4 Absolute Neutrophils 6.0 Absolute Lymphocytes 1.1 Absolute Monocytes 0.3 Absolute Eosinophils 0.0 Absolute Basophils 0.0 Sodium 146.0 H Potassium 3.6 Chloride 109 H Carbon Dioxide 28 Anion Gap 9 BUN 32 H Creatinine 0.94 Est GFR ( Amer) > 60 Est GFR (Non-Af Amer) 58 L Glucose 107 Calcium 7.7 L 10/30/16 10/30/16 10/31/16 18:50 18:50 00:40 Creatine Kinase 427 H 421 H Troponin I 0.083 10/31/16 10/31/16 10/31/16 00:40 06:49 06:49 Creatine Kinase 417 H Troponin I 0.073 0.057 Impressions: Chest X-Ray 10/30/16 06:20 IMPRESSION: NO ACUTE RADIOGRAPHIC FINDING IN THE CHEST. Assessment & Plan - Diagnosis (1) Acute respiratory failure Qualifiers: Respiratory failure complication: hypoxia and hypercapnia Qualified Code(s): J96.01 - Acute respiratory failure with hypoxia Is this a current diagnosis for this admission?: Yes (2) Urinary tract infection Is this a current diagnosis for this admission?: Yes (3) Acute respiratory failure with hypoxia and hypercapnia Is this a current diagnosis for this admission?: Yes (4) Squamous cell lung cancer Qualifiers: Laterality: left Qualified Code(s): C34.92 - Malignant neoplasm of unspecified part of left bronchus or lung Is this a current diagnosis for this admission?: Yes (5) Very severe chronic obstructive pulmonary disease Is this a current diagnosis for this admission?: Yes (6) GERD (gastroesophageal reflux disease) Qualifiers: Esophagitis presence: with esophagitis Qualified Code(s): K21.0 - Gastro-esophageal reflux disease with esophagitis - Plan Summary Plan Summary: Patient will continue present treatment
[2016-11-02] MEDS ORDERED: SENNOSIDES/DOCUSATE 8.6-50 MG 1 EACH TABLET PO ONE (18:30)
[2016-11-02] MEDS: LEVOFLOXACIN 500 MG/D5W RTU 500 MG/100 ML RTUPB IV SCH (19:52)
[2016-11-02] MEDS: ATORVASTATIN CALCIUM 10 MG TABLET PO SCH (21:13)
[2016-11-02] MEDS: CETIRIZINE 5 MG TABLET PO SCH (21:13)
[2016-11-02] MEDS: MIRTAZAPINE 15 MG TABLET PO SCH (21:14)
[2016-11-03] MEDS: PREGABALIN 75 MG CAPSULE PO SCH ×3 (05:51→21:17)
[2016-11-03] MEDS: ENOXAPARIN SODIUM INJ 30 MG/0.3 ML DISP.SYRIN SUBCUT SCH (10:02)
[2016-11-03] MEDS: BUDESONIDE/FORMOTEROL 160-4.5 MCG 60 PUFF/6 GM MDI IH SCH ×2 (10:02→21:19)
[2016-11-03] MEDS: CLONIDINE HCL 0.1 MG TABLET PO SCH ×2 (10:03→21:17)
[2016-11-03] MEDS: PREDNISONE 20 MG TABLET PO SCH (10:03)
[2016-11-03] MEDS: TIOTROPIUM BROMIDE DPI 5 CAP/KIT (18 MCG/CAP) IH SCH (10:03)
[2016-11-03] MEDS: CITALOPRAM HYDROBROMIDE 20 MG TABLET PO SCH (10:04)
[2016-11-03] MEDS: LINEZOLID 600 MG TABLET PO SCH ×2 (10:04→21:17)
[2016-11-03] MEDS: LANSOPRAZOLE 30 MG TAB.RAP.DR PO SCH (10:04)
[2016-11-03] MEDS: LOSARTAN POTASSIUM 50 MG TABLET PO SCH (10:04)
[2016-11-03] MEDS: FLUCONAZOLE 100 MG TABLET PO SCH (10:05)
[2016-11-03] MEDS: AMLODIPINE BESYLATE 5 MG TABLET PO SCH (10:05)
--- NOTE | 2016-11-03 14:31 | PDOC PROGRESS REPORT ---
Subjective Progress Note for:: 11/03/16 Subjective:: Patient was seen by the bedside, there is no new complaints Physical Exam Vital Signs: Temp Pulse Resp BP Pulse Ox 97.6 F 77 19 121/69 100 11/03/16 11:36 11/03/16 11:36 11/03/16 11:36 11/03/16 11:36 11/03/16 11:36 Intake & Output 11/02/16 11/03/16 11/04/16 06:59 06:59 06:59 Intake Total 1022 1123 118 Output Total 1175 950 300 Balance -153 173 -182 Weight 73 kg 72.4 kg General appearance: PRESENT: no acute distress Eye exam: PRESENT: PERRLA Respiratory exam: PRESENT: rhonchi Cardiovascular exam: PRESENT: +S1, +S2 GI/Abdominal exam: PRESENT: soft Results Laboratory Results: 11/02/16 04:24 11/02/16 04:24 10/30/16 10/30/16 10/31/16 18:50 18:50 00:40 Creatine Kinase 427 H 421 H Troponin I 0.083 10/31/16 10/31/16 10/31/16 00:40 06:49 06:49 Creatine Kinase 417 H Troponin I 0.073 0.057 Impressions: Chest X-Ray 10/30/16 06:20 IMPRESSION: NO ACUTE RADIOGRAPHIC FINDING IN THE CHEST. Assessment & Plan - Diagnosis (1) Acute respiratory failure Qualifiers: Respiratory failure complication: hypoxia and hypercapnia Qualified Code(s): J96.01 - Acute respiratory failure with hypoxia Is this a current diagnosis for this admission?: Yes (2) Urinary tract infection Is this a current diagnosis for this admission?: Yes (3) Acute respiratory failure with hypoxia and hypercapnia Is this a current diagnosis for this admission?: Yes (4) Squamous cell lung cancer Qualifiers: Laterality: left Qualified Code(s): C34.92 - Malignant neoplasm of unspecified part of left bronchus or lung Is this a current diagnosis for this admission?: Yes (5) Very severe chronic obstructive pulmonary disease Is this a current diagnosis for this admission?: Yes (6) GERD (gastroesophageal reflux disease) Qualifiers: Esophagitis presence: with esophagitis Qualified Code(s): K21.0 - Gastro-esophageal reflux disease with esophagitis
[2016-11-03] MEDS: LEVOFLOXACIN 500 MG/D5W RTU 500 MG/100 ML RTUPB IV SCH (19:34)
[2016-11-03] MEDS: ALBUTEROL SULFATE HFA (90 MCG/PUFF) 200 PUFF/8.5 GM MDI IH PRN (21:16)
[2016-11-03] MEDS: MIRTAZAPINE 15 MG TABLET PO SCH (21:17)
[2016-11-03] MEDS: ATORVASTATIN CALCIUM 10 MG TABLET PO SCH (21:18)
[2016-11-03] MEDS: CETIRIZINE 5 MG TABLET PO SCH (21:18)
[2016-11-04] MEDS: PREGABALIN 75 MG CAPSULE PO SCH ×3 (05:02→21:36)
[2016-11-04] MEDS: LOSARTAN POTASSIUM 50 MG TABLET PO SCH (09:34)
[2016-11-04] MEDS: TIOTROPIUM BROMIDE DPI 5 CAP/KIT (18 MCG/CAP) IH SCH (09:34)
[2016-11-04] MEDS: CLONIDINE HCL 0.1 MG TABLET PO SCH ×2 (09:35→21:35)
[2016-11-04] MEDS: FLUCONAZOLE 100 MG TABLET PO SCH (09:35)
[2016-11-04] MEDS: AMLODIPINE BESYLATE 5 MG TABLET PO SCH (09:36)
[2016-11-04] MEDS: LINEZOLID 600 MG TABLET PO SCH ×2 (09:36→21:35)
[2016-11-04] MEDS: PREDNISONE 20 MG TABLET PO SCH (09:36)
[2016-11-04] MEDS: CITALOPRAM HYDROBROMIDE 20 MG TABLET PO SCH (09:36)
[2016-11-04] MEDS: BUDESONIDE/FORMOTEROL 160-4.5 MCG 60 PUFF/6 GM MDI IH SCH ×2 (09:37→21:36)
[2016-11-04] MEDS: LANSOPRAZOLE 30 MG TAB.RAP.DR PO SCH (09:37)
[2016-11-04] MEDS: ENOXAPARIN SODIUM INJ 30 MG/0.3 ML DISP.SYRIN SUBCUT SCH (09:37)
[2016-11-04] MEDS: LEVOFLOXACIN 500 MG TABLET PO SCH (20:29)
--- NOTE | 2016-11-04 20:42 | PDOC PROGRESS REPORT ---
Subjective Progress Note for:: 11/04/16 Subjective:: Patient was seen by the bedside, she declined hospice services, the plan is to get discharged back to [facility] for rehabilitation. Physical Exam Vital Signs: Temp Pulse Resp BP Pulse Ox 97.6 F 73 16 125/64 99 11/04/16 19:42 11/04/16 19:42 11/04/16 19:42 11/04/16 19:42 11/04/16 19:42 Intake & Output 11/03/16 11/04/16 11/05/16 06:59 06:59 06:59 Intake Total 1123 1138 637 Output Total 950 1000 650 Balance 173 138 -13 Weight 72.4 kg 71.8 kg General appearance: PRESENT: no acute distress Eye exam: PRESENT: PERRLA Respiratory exam: PRESENT: rhonchi Cardiovascular exam: PRESENT: +S1, +S2 Neurological exam: PRESENT: alert Results Laboratory Results: 11/02/16 04:24 11/02/16 04:24 10/30/16 10/30/16 10/31/16 18:50 18:50 00:40 Creatine Kinase 427 H 421 H Troponin I 0.083 10/31/16 10/31/16 10/31/16 00:40 06:49 06:49 Creatine Kinase 417 H Troponin I 0.073 0.057 Impressions: Chest X-Ray 10/30/16 06:20 IMPRESSION: NO ACUTE RADIOGRAPHIC FINDING IN THE CHEST. Assessment & Plan - Diagnosis (1) Acute respiratory failure Qualifiers: Respiratory failure complication: hypoxia and hypercapnia Qualified Code(s): J96.01 - Acute respiratory failure with hypoxia Is this a current diagnosis for this admission?: Yes (2) Urinary tract infection Is this a current diagnosis for this admission?: Yes (3) Acute respiratory failure with hypoxia and hypercapnia Is this a current diagnosis for this admission?: Yes (4) Squamous cell lung cancer Qualifiers: Laterality: left Qualified Code(s): C34.92 - Malignant neoplasm of unspecified part of left bronchus or lung Is this a current diagnosis for this admission?: Yes (5) Very severe chronic obstructive pulmonary disease Is this a current diagnosis for this admission?: Yes (6) GERD (gastroesophageal reflux disease) Qualifiers: Esophagitis presence: with esophagitis Qualified Code(s): K21.0 - Gastro-esophageal reflux disease with esophagitis
[2016-11-04] MEDS: ATORVASTATIN CALCIUM 10 MG TABLET PO SCH (21:34)
[2016-11-04] MEDS: MIRTAZAPINE 15 MG TABLET PO SCH (21:34)
[2016-11-04] MEDS: CETIRIZINE 5 MG TABLET PO SCH (21:41)
[2016-11-05] MEDS: PREGABALIN 75 MG CAPSULE PO SCH ×3 (05:40→21:04)
[2016-11-05] MEDS: AMLODIPINE BESYLATE 5 MG TABLET PO SCH (09:19)
[2016-11-05] MEDS: BUDESONIDE/FORMOTEROL 160-4.5 MCG 60 PUFF/6 GM MDI IH SCH ×2 (09:22→21:05)
[2016-11-05] MEDS: CITALOPRAM HYDROBROMIDE 20 MG TABLET PO SCH (09:22)
[2016-11-05] MEDS: CLONIDINE HCL 0.1 MG TABLET PO SCH ×2 (09:22→21:11)
[2016-11-05] MEDS: FLUCONAZOLE 100 MG TABLET PO SCH (09:23)
[2016-11-05] MEDS: LANSOPRAZOLE 30 MG TAB.RAP.DR PO SCH (09:23)
[2016-11-05] MEDS: LINEZOLID 600 MG TABLET PO SCH ×2 (09:24→21:05)
[2016-11-05] MEDS: PREDNISONE 20 MG TABLET PO SCH (09:24)
[2016-11-05] MEDS: LOSARTAN POTASSIUM 50 MG TABLET PO SCH (11:17)
[2016-11-05] MEDS: TIOTROPIUM BROMIDE DPI 5 CAP/KIT (18 MCG/CAP) IH SCH (14:41)
[2016-11-05] MEDS: ENOXAPARIN SODIUM INJ 30 MG/0.3 ML DISP.SYRIN SUBCUT SCH (17:31)
--- NOTE | 2016-11-05 18:03 | PDOC PROGRESS REPORT ---
Subjective Progress Note for:: 11/05/16 Subjective:: Patient was seen by the bedside, she had no new complaint Physical Exam Vital Signs: Temp Pulse Resp BP Pulse Ox 97.6 F 72 18 120/66 100 11/05/16 11:48 11/05/16 11:48 11/05/16 11:48 11/05/16 11:48 11/05/16 11:48 Intake & Output 11/04/16 11/05/16 11/06/16 06:59 06:59 06:59 Intake Total 1138 1002 Output Total 1000 1150 Balance 138 -148 Weight 71.8 kg General appearance: PRESENT: no acute distress Eye exam: PRESENT: PERRLA Cardiovascular exam: PRESENT: +S1, +S2 GI/Abdominal exam: PRESENT: soft Neurological exam: PRESENT: alert, CN II-XII grossly intact Results Laboratory Results: 11/02/16 04:24 11/02/16 04:24 10/30/16 10/30/16 10/31/16 18:50 18:50 00:40 Creatine Kinase 427 H 421 H Troponin I 0.083 10/31/16 10/31/16 10/31/16 00:40 06:49 06:49 Creatine Kinase 417 H Troponin I 0.073 0.057 Impressions: Chest X-Ray 10/30/16 06:20 IMPRESSION: NO ACUTE RADIOGRAPHIC FINDING IN THE CHEST. Assessment & Plan - Diagnosis (1) Acute respiratory failure Qualifiers: Respiratory failure complication: hypoxia and hypercapnia Qualified Code(s): J96.01 - Acute respiratory failure with hypoxia Is this a current diagnosis for this admission?: Yes (2) Urinary tract infection Is this a current diagnosis for this admission?: Yes (3) Acute respiratory failure with hypoxia and hypercapnia Is this a current diagnosis for this admission?: Yes (4) Squamous cell lung cancer Qualifiers: Laterality: left Qualified Code(s): C34.92 - Malignant neoplasm of unspecified part of left bronchus or lung Is this a current diagnosis for this admission?: Yes (5) Very severe chronic obstructive pulmonary disease Is this a current diagnosis for this admission?: Yes (6) GERD (gastroesophageal reflux disease) Qualifiers: Esophagitis presence: with esophagitis Qualified Code(s): K21.0 - Gastro-esophageal reflux disease with esophagitis
[2016-11-05 19:47] LABS: ABSOLUTE LYMPHOCYTES (AUTO) 0.8 10^3/uL (0.5-4.7); ABSOLUTE MONOCYTES (AUTO) 0.1 10^3/uL (0.1-1.4); ABSOLUTE NEUT (AUTO) 6.6 10^3/uL (1.7-8.2); BASOPHILS % (AUTO) 0.3 % (0-2); HEMATOCRIT 29.1 % (36.0-47.0); HEMOGLOBIN 9.5 g/dL (12.0-15.5); HGB HCT DIFFERENCE -0.6; LYMPHOCYTES % (AUTO) 10.3 % (13-45); MEAN CORPUSCULAR HEMOGLOBIN 28.2 pg (27.0-33.4); MEAN CORPUSCULAR HGB CONC 32.8 g/dL (32.0-36.0); MEAN CORPUSCULAR VOLUME 86 fl (80-97); MONOCYTES % (AUTO) 1.9 % (3-13); RED BLOOD COUNT 3.38 10^6/uL (3.72-5.28); RED CELL DISTRIBUTION WIDTH 17.4 % (11.5-14.0); SEGMENTED NEUTROPHILS % (AUTO) 87.5 % (42-78); WHITE BLOOD COUNT 7.6 10^3/uL (4.0-10.5)
[2016-11-05 20:06] LABS: ALANINE AMINOTRANSFERASE 18 U/L (9-52); ALBUMIN 3.1 g/dL (3.5-5.0); ALKALINE PHOSPHATASE 54 U/L (38-126); ANION GAP 12 (5-19); ASPARTATE AMINO TRANSFERASE 15 U/L (14-36); BILIRUBIN,DIRECT 0.3 mg/dL (0.0-0.4); BILIRUBIN,TOTAL 0.3 mg/dL (0.2-1.3); BLOOD UREA NITROGEN 27 mg/dL (7-20); CALCIUM 7.8 mg/dL (8.4-10.2); CARBON DIOXIDE 22 mmol/L (22-30); CHLORIDE 106 mmol/L (98-107); CREATININE RESULT 0.87 mg/dL (0.52-1.25); GLUCOSE 194 mg/dL (75-110); SODIUM 140.3 mmol/L (137-145); TOTAL PROTEIN 5.8 g/dL (6.3-8.2)
[2016-11-05] MEDS: ATORVASTATIN CALCIUM 10 MG TABLET PO SCH (21:04)
[2016-11-05] MEDS: LEVOFLOXACIN 500 MG TABLET PO SCH (21:04)
[2016-11-05] MEDS: MIRTAZAPINE 15 MG TABLET PO SCH (21:05)
[2016-11-05] MEDS: CETIRIZINE 5 MG TABLET PO SCH (21:05)
[2016-11-06] MEDS: PREGABALIN 75 MG CAPSULE PO SCH ×3 (05:37→21:51)
[2016-11-06] MEDS: ENOXAPARIN SODIUM INJ 30 MG/0.3 ML DISP.SYRIN SUBCUT SCH (11:39)
[2016-11-06] MEDS: BUDESONIDE/FORMOTEROL 160-4.5 MCG 60 PUFF/6 GM MDI IH SCH ×2 (11:40→21:52)
[2016-11-06] MEDS: CITALOPRAM HYDROBROMIDE 20 MG TABLET PO SCH (11:40)
[2016-11-06] MEDS: LINEZOLID 600 MG TABLET PO SCH (11:41)
[2016-11-06] MEDS: FLUCONAZOLE 100 MG TABLET PO SCH (11:41)
[2016-11-06] MEDS: LANSOPRAZOLE 30 MG TAB.RAP.DR PO SCH (11:41)
[2016-11-06] MEDS: LOSARTAN POTASSIUM 50 MG TABLET PO SCH (11:42)
[2016-11-06] MEDS: PREDNISONE 20 MG TABLET PO SCH (11:42)
[2016-11-06] MEDS: AMLODIPINE BESYLATE 5 MG TABLET PO SCH (11:43)
[2016-11-06] MEDS: CLONIDINE HCL 0.1 MG TABLET PO SCH ×2 (11:43→21:55)
[2016-11-06] MEDS: TIOTROPIUM BROMIDE DPI 5 CAP/KIT (18 MCG/CAP) IH SCH (11:44)
--- NOTE | 2016-11-06 18:28 | PDOC TRANSFER SUMMARY ---
General - Admit/Disc Date/PCP Admission Date/Primary Care Provider: 10/30/16 17:29 NATACHA ENGLAND MD Discharge Date: 11/06/16 - Discharge Diagnosis (1) Acute respiratory failure Is this a current diagnosis for this admission?: Yes (2) Urinary tract infection Is this a current diagnosis for this admission?: Yes (3) Acute respiratory failure with hypoxia and hypercapnia Is this a current diagnosis for this admission?: Yes (4) Squamous cell lung cancer Is this a current diagnosis for this admission?: Yes (5) Very severe chronic obstructive pulmonary disease Is this a current diagnosis for this admission?: Yes - Additional Information Resuscitation Status: Do Not Resuscitate Home Medications: Albuterol Sulfate [Proair HFA] 1 puff IH PRN PRN 10/08/14 Fluconazole [Diflucan] 100 mg PO DAILY 10/08/14 Prednisone [Deltasone 20 mg Tablet] 40 mg PO DAILY #0 tablet 03/13/15 Albuterol Sulfate [Proair HFA Inhalation Aerosol 8.5 gm MDI] 2 puff IH Q4HP PRN 10/30/16 Amlodipine Besylate [Norvasc 5 mg Tablet] 5 mg PO DAILY 10/30/16 Atorvastatin Calcium [Lipitor 10 mg Tablet] 10 mg PO QHS 10/30/16 Budesonide/Formoterol Fumarate [Symbicort HFA 160-4.5 mcg Inhaler 6 gm] 1 puff IH Q12 10/30/16 Citalopram Hydrobromide [Celexa 20 mg Tablet] 20 mg PO DAILY 10/30/16 Clonidine HCl [Catapres 0.1 mg Tablet] 0.1 mg PO Q12 10/30/16 Ergocalciferol (Vitamin D2) [Drisdol 50,000 unit (1.25MG) Capsule] 50,000 units PO [id number] 10/30/16 Ipratropium/Albuterol Sulfate [Duoneb 3 ml Ampul] 3 ml NEB RTQ6HP PRN 10/30/16 Levocetirizine Dihydrochloride [Xyzal] 5 mg PO QHS 10/30/16 Levofloxacin [Levaquin 750 mg Tablet] 750 mg PO DAILY 10/30/16 Losartan Potassium [Cozaar 100 mg Tablet] 100 mg PO DAILY 10/30/16 Mirtazapine 7.5 mg PO QHS 10/30/16 Omeprazole 40 mg PO DAILY 10/30/16 Oxycodone HCl/Acetaminophen [Percocet 10-325 mg Tablet] 1 tab PO Q6HP PRN Pregabalin [Lyrica 75 mg Capsule] 75 mg PO Q8 10/30/16 Tiotropium [place] [Spiriva Handihaler 18 mcg/dose (30 Dose)] 1 cap IH DAILY Prednisone 20 mg PO DAILY #5 tablet 11/06/16 History of Present Illness Admission Date/PCP: 10/30/16 17:29 NATACHA ENGLAND MD History of Present Illness: HUNTER GRANADOS is a 71 year old female, She was just discharged from this hospital about 3 days ago when she was admitted for the management of MRSA and Pseudomonas pneumonia she was treated with intravenous Zyvox and aztreonam she was discharged on p.o. Zyvox and p.o. Levaquin to the skilled nursing. She was transferred from the skilled nursing this morning because of respiratory distress, in the emergency room she was evaluated, her breathing was supported with noninvasive positive pressure ventilation, BiPAP further evaluation in the emergency room showed evidence of UTI the urine dipstick was grossly abnormal with pyuria, bacteriuria. Because of the severe leukocytosis, acute kidney injury the ER physician is suggesting that patient needed to be admitted inpatient for management. I spoke to patient and family today about hospice care it seems that she is hospice appropriate at this time of her illness but patient declined hospice. She has multiple comorbid conditions including end- stage COPD, chronic respiratory failure on home oxygen, malignant neoplasm of the lung squamous cell that has not been treated because of the frequent intercurrent illnesses. Chronic debilitation overall poor condition, sedentary lifestyle chronic pain multiple thoracic vertebrae fracture from osteoporosis overall prognosis is very poor in this patient she is a DNR status. Hospital Course Hospital Course: For details check H&P, she was admitted for the management of acute hypercapnic and hypoxemic respiratory failure she was treated with a noninvasive positive pressure ventilation with BiPAP, she was continued on Zyvox and Levaquin and prednisone. Hospice care was discussed with family but family refused hospice the plan is to transfer back to skilled nursing. Physical Exam Vital Signs: Temp Pulse Resp BP Pulse Ox 97.8 F 76 16 93/55 L 100 11/06/16 12:50 11/06/16 12:50 11/06/16 12:50 11/06/16 12:50 11/06/16 16:00 Intake & Output 11/05/16 11/06/16 11/07/16 06:59 06:59 06:59 Intake Total 1002 1395 Output Total 1150 1550 Balance -148 -155 Weight 72 kg General appearance: PRESENT: no acute distress Eye exam: PRESENT: PERRLA Respiratory exam: PRESENT: clear to auscultation ghulam Cardiovascular exam: PRESENT: +S1, +S2 GI/Abdominal exam: PRESENT: soft Neurological exam: PRESENT: alert, CN II-XII grossly intact Results Laboratory Results: 11/05/16 19:38 11/05/16 19:38 11/05/16 11/05/16 19:38 19:38 WBC 7.6 RBC 3.38 L Hgb 9.5 L Hct 29.1 L MCV 86 MCH 28.2 MCHC 32.8 RDW 17.4 H Plt Count 195 Seg Neutrophils % 87.5 H Lymphocytes % 10.3 L Monocytes % 1.9 L Eosinophils % 0.0 Basophils % 0.3 Absolute Neutrophils 6.6 Absolute Lymphocytes 0.8 Absolute Monocytes 0.1 Absolute Eosinophils 0.0 Absolute Basophils 0.0 Sodium 140.3 Potassium 4.0 Chloride 106 Carbon Dioxide 22 Anion Gap 12 BUN 27 H Creatinine 0.87 Est GFR ( Amer) > 60 Est GFR (Non-Af Amer) > 60 Glucose 194 H Calcium 7.8 L Total Bilirubin 0.3 AST 15 ALT 18 Alkaline Phosphatase 54 Total Protein 5.8 L Albumin 3.1 L 10/30/16 10/30/16 10/31/16 18:50 18:50 00:40 Creatine Kinase 427 H 421 H Troponin I 0.083 10/31/16 10/31/16 10/31/16 00:40 06:49 06:49 Creatine Kinase 417 H Troponin I 0.073 0.057 Impressions: Chest X-Ray 10/30/16 06:20 IMPRESSION: NO ACUTE RADIOGRAPHIC FINDING IN THE CHEST.
[2016-11-06] MEDS: LEVOFLOXACIN 500 MG TABLET PO SCH (21:51)
[2016-11-06] MEDS: MIRTAZAPINE 15 MG TABLET PO SCH (21:52)
[2016-11-06] MEDS: CETIRIZINE 5 MG TABLET PO SCH (21:53)
[2016-11-06] MEDS: ATORVASTATIN CALCIUM 10 MG TABLET PO SCH (21:53)
[2016-11-07] MEDS: PREGABALIN 75 MG CAPSULE PO SCH ×2 (05:05→13:46)
[2016-11-07] MEDS: ENOXAPARIN SODIUM INJ 30 MG/0.3 ML DISP.SYRIN SUBCUT SCH (10:04)
[2016-11-07] MEDS: TIOTROPIUM BROMIDE DPI 5 CAP/KIT (18 MCG/CAP) IH SCH (10:05)
[2016-11-07] MEDS: BUDESONIDE/FORMOTEROL 160-4.5 MCG 60 PUFF/6 GM MDI IH SCH (10:05)
[2016-11-07] MEDS: CITALOPRAM HYDROBROMIDE 20 MG TABLET PO SCH (10:06)
[2016-11-07] MEDS: AMLODIPINE BESYLATE 5 MG TABLET PO SCH (10:06)
[2016-11-07] MEDS: PREDNISONE 20 MG TABLET PO SCH (10:07)
[2016-11-07] MEDS: LOSARTAN POTASSIUM 50 MG TABLET PO SCH (10:07)
[2016-11-07] MEDS: CLONIDINE HCL 0.1 MG TABLET PO SCH (10:07)
[2016-11-07] MEDS: LANSOPRAZOLE 30 MG TAB.RAP.DR PO SCH (10:07)
[2016-11-07 12:10] VITALS: BP 107/61
[2016-11-08] MEDS ORDERED: LANSOPRAZOLE 30 MG TAB.RAP.DR PO SCH (08:00)
[2016-11-08] MEDS ORDERED: ERGOCALCIFEROL (VITAMIN D2) 50000 UNIT (1.25 MG) CAPSULE PO SCH (10:00)
== END 2016-11-07 14:28 | DRG 189 ==
LOC: ER 06:13 → UNDOADMIN 10:06 → EH 10:06 → 3N 12:09
PROVIDERS: ADMIT Internal Medicine; ATTEND Internal Medicine
PROC: 5A09557 Assistance with Respiratory Ventilation, Greater than 96 Consecutive Hours, Continuous Positive Airway Pressure (ICD-10-PCS; principal; 2016-10-30)
DX: J96.22 Acute and chronic respiratory failure with hypercapnia (principal); C34.92 Malignant neoplasm of unspecified part of left bronchus or lung; N39.0 Urinary tract infection, site not specified; N17.9 Acute kidney failure, unspecified; J96.02 Acute respiratory failure with hypercapnia; K21.9 Gastro-esophageal reflux disease without esophagitis; J44.9 Chronic obstructive pulmonary disease, unspecified; Z66 Do not resuscitate; E78.5 Hyperlipidemia, unspecified; G89.29 Other chronic pain; I10 Essential (primary) hypertension; M06.9 Rheumatoid arthritis, unspecified; M80.08XD Age-related osteoporosis with current pathological fracture, vertebra(e), subsequent encounter for fracture with routine healing; F32.9 Major depressive disorder, single episode, unspecified; D64.9 Anemia, unspecified; Z99.81 Dependence on supplemental oxygen; Z79.899 Other long term (current) drug therapy; Z98.84 Bariatric surgery status; Z88.0 Allergy status to penicillin; Z90.49 Acquired absence of other specified parts of digestive tract; Z90.710 Acquired absence of both cervix and uterus; Z87.891 Personal history of nicotine dependence; Z79.52 Long term (current) use of systemic steroids; Z86.14 Personal history of Methicillin resistant Staphylococcus aureus infection; J96.21 Acute and chronic respiratory failure with hypoxia
CPT/HCPCS: 36415; 51702; 71010; 80048; 80053; 81001; 82550; 82803; 82962; 83605; 84439; 84443; 84484; 85025; 85610; 87040; 87086; 93005; 93010; 94640; 94660; 96365; 99291; J1650; J1956; J2270; J3490; J7030; J7512; J7620

== ENCOUNTER 2016-11-20 10:37 | Observation (INO) | payer MEDICARE, MEDICAID ==
[2016-11-20] MEDS ORDERED: NORMAL SALINE 1000 ML 300 ML IV ONE ×3 (10:58→12:21)
--- NOTE | 2016-11-20 11:26 | ER Document Report ---
ED Blood Pressure Problem - General Chief Complaint: Low Blood Pressure Stated Complaint: BLOOD PRESSURE PROBLEMS Time Seen by Provider: 11/20/16 10:58 Mode of Arrival: Medic Information source: Patient, Transfer Record, Emergency Med Personnel TRAVEL OUTSIDE OF THE [place] IN LAST 30 DAYS: No - HPI Patient complains to provider of: Low blood pressure Onset: Just prior to arrival Onset/Duration: Sudden Quality of pain: No pain Severity: Moderate Problem is: New problem Pt currently taking medication for problem: Yes Associated symptoms: None. denies: Nausea, Syncope, Vomiting Similar symptoms previously: Yes Recently seen / treated by doctor: No - Related Data Allergies/Adverse Reactions: Penicillins Allergy (Verified 08/23/16 14:32) Hives Past Medical History - General Information source: Patient - Social History Smoking Status: Unknown if Ever Smoked Chew tobacco use (# tins/day): No Frequency of alcohol use: None Drug Abuse: None Lives with: [facility] - [facility] Family History: None Patient has suicidal ideation: No Patient has homicidal ideation: No - Past Medical History Cardiac Medical History: Reports: Hx Hypercholesterolemia, Hx Hypertension Denies: Hx Coronary Artery Disease, Hx Heart Attack Pulmonary Medical History: Reports: Hx Asthma, Hx Bronchitis, Hx COPD, Hx Pneumonia - gram-negative and MRSA pneumonia Denies: Hx Tuberculosis Neurological Medical History: Denies: Hx Cerebrovascular Accident, Hx Seizures Renal/ Medical History: Denies: Hx Peritoneal Dialysis Malignancy Medical History: Reports: Hx Lung Cancer - Squamous cell lung cancer , stage I GI Medical History: Reports: Hx Gastroesophageal Reflux Disease Musculoskeltal Medical History: Reports Hx Arthritis - RA all over Psychiatric Medical History: Reports: Hx Anxiety, Hx Depression Infectious Medical History: Reports: Hx MRSA - History of MRSA pneumonia Past Surgical History: Reports: Hx Abdominal Surgery - gastric bypass, sbo, Hx Appendectomy, Hx Cholecystectomy, Hx Hysterectomy, Hx Orthopedic Surgery - Immunizations Immunizations up to date: Yes Hx Diphtheria, Pertussis, Tetanus Vaccination: No Hx Pneumococcal Vaccination: 04/14/12 Review of Systems - Review of Systems Constitutional: Weakness EENT: No symptoms reported Cardiovascular: No symptoms reported. denies: Chest pain Respiratory: No symptoms reported. denies: Short of breath Gastrointestinal: No symptoms reported Female Genitourinary: Post menopausal Musculoskeletal: No symptoms reported Skin: No symptoms reported Neurological/Psychological: No symptoms reported Physical Exam - Vital signs Vitals: Temp Pulse Resp BP Pulse Ox 98.1 F 76 20 185/95 H 98 11/20/16 10:50 11/20/16 10:50 11/20/16 10:50 11/20/16 10:50 11/20/16 10:50 Interpretation: Other - BP VARIES, MOSTLY HYPOTENSIVE. No: Bradycardic, Tachycardic - General General appearance: Appears well, Alert In distress: None - HEENT Head: Normocephalic Eyes: Normal Conjunctiva: Normal Ears: Normal Nasal: Normal Mouth/Lips: Normal Mucous membranes: Normal Pharynx: Normal Neck: Normal - Respiratory Respiratory status: No respiratory distress Breath sounds: Normal - Cardiovascular Rhythm: Regular Heart sounds: Normal auscultation Murmur: No - Abdominal Inspection: Normal Distension: No distension Bowel sounds: Normal - Rectal Tenderness: No Stool: See lab result. No: Black, Bloody Hemorrhoids: None - Extremities General upper extremity: Normal inspection General lower extremity: Normal inspection. No: Edema - Neurological Neuro grossly intact: Yes Cognition: Normal Orientation: AAOx4 - Psychological Associated symptoms: Normal affect, Normal mood - Skin Skin Temperature: Warm Skin Moisture: Dry Skin Color: Normal Skin Turgor: Elastic Course - Vital Signs Vital signs: Temp Pulse Resp BP Pulse Ox 98.1 F 76 18 112/57 L 100 11/20/16 10:50 11/20/16 10:50 11/20/16 11:52 11/20/16 11:52 11/20/16 11:52 - Laboratory Result Diagrams: 11/20/16 11:20 11/20/16 11:20 Laboratory results interpreted by me: 11/20/16 11/20/16 11:20 11:20 WBC 10.7 H RBC 2.66 L Hgb 7.6 L Hct 23.2 L RDW 19.5 H Est GFR (Non-Af Amer) 50 L Calcium 8.0 L AST 13 L Creatine Kinase 27 L Total Protein 5.0 L Albumin 2.7 L - Consults DR. ENGLAND Time consulted: 11:58 Consulted provider: will see as inpatient Discharge - Discharge Clinical Impression: Anemia of chronic disease, End stage chronic obstructive pulmonary disease Hypotension Qualifiers: Hypotension type: unspecified hypotension type Qualified Code(s): I95.9 - Hypotension, unspecified Squamous cell lung cancer Qualifiers: Laterality: left Qualified Code(s): C34.92 - Malignant neoplasm of unspecified part of left bronchus or lung Condition: Fair Disposition: ADMITTED OBSERVATION Admitting Provider: [facility] Admitted: Telemetry
[2016-11-20 11:41] LABS: ABSOLUTE EOSINOPHILS # (AUTO) 0.3 10^3/uL (0.0-0.6); ABSOLUTE LYMPHOCYTES (AUTO) 1.8 10^3/uL (0.5-4.7); ABSOLUTE MONOCYTES (AUTO) 0.8 10^3/uL (0.1-1.4); ABSOLUTE NEUT (AUTO) 7.7 10^3/uL (1.7-8.2); BASOPHILS % (AUTO) 0.2 % (0-2); EOSINOPHILS % (AUTO) 3.1 % (0-6); HEMATOCRIT 23.2 % (36.0-47.0); HGB HCT DIFFERENCE -0.4; LYMPHOCYTES % (AUTO) 16.6 % (13-45); MEAN CORPUSCULAR HEMOGLOBIN 28.4 pg (27.0-33.4); MEAN CORPUSCULAR HGB CONC 32.6 g/dL (32.0-36.0); MEAN CORPUSCULAR VOLUME 87 fl (80-97); MONOCYTES % (AUTO) 7.8 % (3-13); RED BLOOD COUNT 2.66 10^6/uL (3.72-5.28); RED CELL DISTRIBUTION WIDTH 19.5 % (11.5-14.0); SEGMENTED NEUTROPHILS % (AUTO) 72.3 % (42-78); WHITE BLOOD COUNT 10.7 10^3/uL (4.0-10.5)
[2016-11-20 11:44] LABS: HEMOGLOBIN 7.6 g/dL (12.0-15.5)
[2016-11-20 11:51] LABS: ALANINE AMINOTRANSFERASE 23 U/L (9-52); ALBUMIN 2.7 g/dL (3.5-5.0); ALKALINE PHOSPHATASE 48 U/L (38-126); ANION GAP 7 (5-19); ASPARTATE AMINO TRANSFERASE 13 U/L (14-36); BILIRUBIN,DIRECT 0.3 mg/dL (0.0-0.4); BILIRUBIN,TOTAL 0.5 mg/dL (0.2-1.3); BLOOD UREA NITROGEN 18 mg/dL (7-20); CARBON DIOXIDE 29 mmol/L (22-30); CHLORIDE 103 mmol/L (98-107); CREATINE KINASE 27 U/L (30-135); CREATININE RESULT 1.08 mg/dL (0.52-1.25); GLUCOSE 78 mg/dL (75-110); POTASSIUM 4.6 mmol/L (3.6-5.0); SODIUM 138.8 mmol/L (137-145)
[2016-11-20] MEDS ORDERED: NORMAL SALINE 250 ML IV PRN (11:55)
[2016-11-20 12:09] LABS: TROPONIN I < 0.012 ng/mL
[2016-11-20] MEDS ORDERED: CETIRIZINE 10 MG TABLET PO SCH (22:00)
[2016-11-20] MEDS ORDERED: ALBUTEROL SULFATE HFA (90 MCG/PUFF) 200 PUFF/8.5 GM MDI IH PRN (23:52)
[2016-11-20] MEDS ORDERED: IPRATROPIUM/ALBUTEROL 0.5-2.5 MG/3 ML AMPUL NEB PRN (23:52)
[2016-11-21] MEDS: OXYCODONE-ACETAMINOPHEN 5-325 MG TABLET PO PRN ×2 (00:26→09:40)
[2016-11-21] MEDS: PREGABALIN 75 MG CAPSULE PO SCH ×2 (09:41→13:53)
[2016-11-21] MEDS ORDERED: CLONIDINE HCL 0.1 MG TABLET PO SCH (10:00)
[2016-11-21] MEDS ORDERED: TIOTROPIUM BROMIDE DPI 5 CAP/KIT (18 MCG/CAP) IH SCH (10:00)
[2016-11-21] MEDS ORDERED: CITALOPRAM HYDROBROMIDE 20 MG TABLET PO SCH (10:00)
[2016-11-21] MEDS ORDERED: AMLODIPINE BESYLATE 5 MG TABLET PO SCH (10:00)
[2016-11-21] MEDS ORDERED: LOSARTAN POTASSIUM 50 MG TABLET PO SCH (10:00)
[2016-11-21] MEDS ORDERED: BUDESONIDE/FORMOTEROL 160-4.5 MCG 60 PUFF/6 GM MDI IH SCH (10:00)
[2016-11-21] MEDS ORDERED: LANSOPRAZOLE 30 MG TAB.RAP.DR PO SCH (10:00)
[2016-11-21] MEDS ORDERED: PREDNISONE 20 MG TABLET PO SCH (10:00)
[2016-11-21 16:24] VITALS: BP 106/62
--- NOTE | 2016-11-21 17:09 | PDOC H&P ---
History of Present Illness Admission Date/PCP: 11/20/16 12:08 NATACHA ENGLAND MD History of Present Illness: HUNTER GRANADOS is a 71 year old female, she has multiple comorbid conditions, she was recently discharged from this hospital, [facility] room for evaluation of 'blood pressure problems' in the emergency room she was found to be anemic, hemoglobin was 7, she was admitted for evaluation for blood transfusion. She has a history of chronic anemia, she was extensively evaluated in the past for this anemia. Past Medical History Cardiac Medical History: Reports: Hyperlipidema, Hypertension Pulmonary Medical History: Reports: Asthma, Bronchitis, Chronic Obstructive Pulmonary Disease (COPD), Pneumonia - gram-negative and MRSA pneumonia Neurological Medical History: Denies: Seizures Malignancy Medical History: Reports: Lung Cancer - Squamous cell lung cancer, stage I GI Medical History: Reports: Gastroesophageal Reflux Disease Musculoskeltal Medical History: Reports: Arthritis - RA all over Psychiatric Medical History: Reports: Depression Hematology: Reports: Anemia Infectious Medical History: Reports: 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 Past Surgical History Past Surgical History: Reports: Appendectomy, Cholecystectomy, Hysterectomy, Orthopedic Surgery Social History Lives with: Long Term - [facility] Smoking Status: Former Smoker Frequency of Alcohol Use: None Hx Recreational Drug Use: No Drugs: None Hx Prescription Drug Abuse: No - Advance Directive Resuscitation Status: Full Code Family History Family History: None Parental Family History Reviewed: Yes Children Family History Reviewed: Yes Sibling(s) Family History Reviewed.: Yes Medication/Allergy Home Medications: Albuterol Sulfate [Proair HFA] 1 puff IH PRN PRN 10/08/14 Fluconazole [Diflucan] 100 mg PO DAILY 10/08/14 Prednisone [Deltasone 20 mg Tablet] 40 mg PO DAILY #0 tablet 03/13/15 Albuterol Sulfate [Proair HFA Inhalation Aerosol 8.5 gm MDI] 2 puff IH Q4HP PRN 10/30/16 Amlodipine Besylate [Norvasc 5 mg Tablet] 5 mg PO DAILY 10/30/16 Atorvastatin Calcium [Lipitor 10 mg Tablet] 10 mg PO QHS 10/30/16 Budesonide/Formoterol Fumarate [Symbicort HFA 160-4.5 mcg Inhaler 6 gm] 1 puff IH Q12 10/30/16 Citalopram Hydrobromide [Celexa 20 mg Tablet] 20 mg PO DAILY 10/30/16 Clonidine HCl [Catapres 0.1 mg Tablet] 0.1 mg PO Q12 10/30/16 Ergocalciferol (Vitamin D2) [Drisdol 50,000 unit (1.25MG) Capsule] 50,000 units PO [id number] 10/30/16 Ipratropium/Albuterol Sulfate [Duoneb 3 ml Ampul] 3 ml NEB RTQ6HP PRN 10/30/16 Levocetirizine Dihydrochloride [Xyzal] 5 mg PO QHS 10/30/16 Losartan Potassium [Cozaar 100 mg Tablet] 100 mg PO DAILY 10/30/16 Mirtazapine 7.5 mg PO QHS 10/30/16 Omeprazole 40 mg PO DAILY 10/30/16 Oxycodone HCl/Acetaminophen [Percocet 10-325 mg Tablet] 1 tab PO Q6HP PRN Pregabalin [Lyrica 75 mg Capsule] 75 mg PO Q8 10/30/16 Tiotropium [place] [Spiriva Handihaler 18 mcg/dose (30 Dose)] 1 cap IH DAILY Clonidine HCl [Catapres 0.1 mg Tablet] 0.1 mg PO Q12 #0 tablet 11/21/16 Allergies/Adverse Reactions: Penicillins Allergy (Verified 08/23/16 14:32) Hives Review of Systems Constitutional: ABSENT: chills, fever(s), headache(s), weight gain, weight loss Eyes: ABSENT: visual disturbances Ears: ABSENT: hearing changes Cardiovascular: ABSENT: chest pain, dyspnea on exertion, edema, orthropnea, palpitations Respiratory: ABSENT: cough, hemoptysis Gastrointestinal: ABSENT: abdominal pain, constipation, diarrhea, hematemesis, hematochezia, nausea, vomiting Genitourinary: ABSENT: dysuria, hematuria Musculoskeletal: ABSENT: joint swelling Integumentary: ABSENT: rash, wounds Neurological: ABSENT: abnormal gait, abnormal speech, confusion, dizziness, focal weakness, syncope Psychiatric: ABSENT: anxiety, depression, homidical ideation, suicidal ideation Endocrine: ABSENT: cold intolerance, heat intolerance, menstrual abnormalities, polydipsia, polyuria Hematologic/Lymphatic: ABSENT: easy bleeding, easy bruising, lymphadenopathy Physical Exam Vital Signs: Temp Pulse Resp BP Pulse Ox 97.8 F 80 16 106/62 97 11/21/16 15:00 11/21/16 15:00 11/21/16 15:00 11/21/16 15:00 11/21/16 08:36 Intake & Output 11/20/16 11/21/16 11/22/16 06:59 06:59 06:59 Intake Total 1735 Balance 1735 General appearance: PRESENT: no acute distress, well-developed, well-nourished Head exam: PRESENT: atraumatic, normocephalic Eye exam: PRESENT: conjunctiva pale Ear exam: PRESENT: normal external ear exam Mouth exam: PRESENT: moist, tongue midline Neck exam: PRESENT: full ROM Respiratory exam: PRESENT: clear to auscultation ghulam Cardiovascular exam: PRESENT: RRR, +S1, +S2 Pulses: PRESENT: normal dorsalis pedis pul, +2 pedal pulses bilateral Vascular exam: PRESENT: normal capillary refill GI/Abdominal exam: PRESENT: normal bowel sounds, soft Rectal exam: PRESENT: deferred Neurological exam: PRESENT: alert, awake, oriented to person, oriented to place , oriented to time, oriented to situation, CN II-XII grossly intact Psychiatric exam: PRESENT: appropriate affect, normal mood Skin exam: PRESENT: dry, intact, warm Results Laboratory Results: 11/20/16 12:10 Blood Type A POSITIVE Antibody Screen NEGATIVE Assessment & Plan - Diagnosis (1) Anemia Qualifiers: Anemia type: unspecified type Qualified Code(s): D64.9 - Anemia, unspecified Is this a current diagnosis for this admission?: YesPlan: She is admitted for blood transfusion
--- NOTE | 2016-11-21 17:10 | PDOC TRANSFER SUMMARY ---
General - Admit/Disc Date/PCP Admission Date/Primary Care Provider: 11/20/16 12:08 NATACHA ENGLAND MD Discharge Date: 11/21/16 - Discharge Diagnosis (1) Anemia Is this a current diagnosis for this admission?: Yes - Additional Information Resuscitation Status: Full Code Home Medications: Albuterol Sulfate [Proair HFA] 1 puff IH PRN PRN 10/08/14 Fluconazole [Diflucan] 100 mg PO DAILY 10/08/14 Prednisone [Deltasone 20 mg Tablet] 40 mg PO DAILY #0 tablet 03/13/15 Albuterol Sulfate [Proair HFA Inhalation Aerosol 8.5 gm MDI] 2 puff IH Q4HP PRN 10/30/16 Amlodipine Besylate [Norvasc 5 mg Tablet] 5 mg PO DAILY 10/30/16 Atorvastatin Calcium [Lipitor 10 mg Tablet] 10 mg PO QHS 10/30/16 Budesonide/Formoterol Fumarate [Symbicort HFA 160-4.5 mcg Inhaler 6 gm] 1 puff IH Q12 10/30/16 Citalopram Hydrobromide [Celexa 20 mg Tablet] 20 mg PO DAILY 10/30/16 Clonidine HCl [Catapres 0.1 mg Tablet] 0.1 mg PO Q12 10/30/16 Ergocalciferol (Vitamin D2) [Drisdol 50,000 unit (1.25MG) Capsule] 50,000 units PO [id number] 10/30/16 Ipratropium/Albuterol Sulfate [Duoneb 3 ml Ampul] 3 ml NEB RTQ6HP PRN 10/30/16 Levocetirizine Dihydrochloride [Xyzal] 5 mg PO QHS 10/30/16 Losartan Potassium [Cozaar 100 mg Tablet] 100 mg PO DAILY 10/30/16 Mirtazapine 7.5 mg PO QHS 10/30/16 Omeprazole 40 mg PO DAILY 10/30/16 Oxycodone HCl/Acetaminophen [Percocet 10-325 mg Tablet] 1 tab PO Q6HP PRN Pregabalin [Lyrica 75 mg Capsule] 75 mg PO Q8 10/30/16 Tiotropium [place] [Spiriva Handihaler 18 mcg/dose (30 Dose)] 1 cap IH DAILY Clonidine HCl [Catapres 0.1 mg Tablet] 0.1 mg PO Q12 #0 tablet 11/21/16 History of Present Illness Admission Date/PCP: 11/20/16 12:08 NATACHA ENGLAND MD History of Present Illness: HUNTER GRANADOS is a 71 year old female, she has multiple comorbid conditions, she was recently discharged from this hospital, she was transferred from the retirement to the emergency room for evaluation of 'blood pressure problems' in the emergency room she was found to be anemic, hemoglobin was 7, she was admitted for evaluation for blood transfusion. She has a history of chronic anemia, she was extensively evaluated in the past for this anemia. Hospital Course Hospital Course: Patient was admitted for blood transfusion due to anemia, she was transfused with packed red blood cells Physical Exam Vital Signs: Temp Pulse Resp BP Pulse Ox 97.8 F 80 16 106/62 97 11/21/16 15:00 11/21/16 15:00 11/21/16 15:00 11/21/16 15:00 11/21/16 08:36 Intake & Output 11/20/16 11/21/16 11/22/16 06:59 06:59 06:59 Intake Total 1735 Balance 1735 General appearance: PRESENT: no acute distress Eye exam: PRESENT: PERRLA Respiratory exam: PRESENT: clear to auscultation ghulam Cardiovascular exam: PRESENT: +S1, +S2 GI/Abdominal exam: PRESENT: soft Neurological exam: PRESENT: alert, CN II-XII grossly intact Results Laboratory Results: 11/20/16 12:10 Blood Type A POSITIVE Antibody Screen NEGATIVE
[2016-11-21 17:54] LABS: ABSOLUTE BASOPHILS # (AUTO) 0.1 10^3/uL (0.0-0.2); ABSOLUTE LYMPHOCYTES (AUTO) 0.6 10^3/uL (0.5-4.7); ABSOLUTE MONOCYTES (AUTO) 0.2 10^3/uL (0.1-1.4); ABSOLUTE NEUT (AUTO) 10.1 10^3/uL (1.7-8.2); BASOPHILS % (AUTO) 0.6 % (0-2); HEMATOCRIT 33.9 % (36.0-47.0); HGB HCT DIFFERENCE -0.3; LYMPHOCYTES % (AUTO) 5.5 % (13-45); MEAN CORPUSCULAR HEMOGLOBIN 28.4 pg (27.0-33.4); MEAN CORPUSCULAR HGB CONC 33.2 g/dL (32.0-36.0); MEAN CORPUSCULAR VOLUME 86 fl (80-97); MONOCYTES % (AUTO) 1.7 % (3-13); RED BLOOD COUNT 3.96 10^6/uL (3.72-5.28); RED CELL DISTRIBUTION WIDTH 17.5 % (11.5-14.0); SEGMENTED NEUTROPHILS % (AUTO) 92.2 % (42-78); WHITE BLOOD COUNT 10.9 10^3/uL (4.0-10.5)
[2016-11-21 17:59] LABS: HEMOGLOBIN 11.2 g/dL (12.0-15.5)
[2016-11-21] MEDS ORDERED: MIRTAZAPINE 15 MG TABLET PO SCH (22:00)
[2016-11-21] MEDS ORDERED: ATORVASTATIN CALCIUM 10 MG TABLET PO SCH (22:00)
[2016-11-21] MEDS ORDERED: CETIRIZINE 5 MG TABLET PO SCH (22:00)
[2016-11-29] MEDS ORDERED: ERGOCALCIFEROL (VITAMIN D2) 50000 UNIT (1.25 MG) CAPSULE PO SCH (10:00)
== END 2016-11-21 18:35 ==
LOC: ER 10:37 → EH 12:08 → INTOOBSV 12:08 → 5 16:14
PROVIDERS: ADMIT Internal Medicine; ATTEND Internal Medicine
DX: D64.9 Anemia, unspecified (principal); I95.9 Hypotension, unspecified; C34.92 Malignant neoplasm of unspecified part of left bronchus or lung; I10 Essential (primary) hypertension; M06.9 Rheumatoid arthritis, unspecified; E78.5 Hyperlipidemia, unspecified; J44.9 Chronic obstructive pulmonary disease, unspecified; Z79.899 Other long term (current) drug therapy; Z86.14 Personal history of Methicillin resistant Staphylococcus aureus infection; Z90.49 Acquired absence of other specified parts of digestive tract; Z98.84 Bariatric surgery status; Z90.710 Acquired absence of both cervix and uterus; Z87.891 Personal history of nicotine dependence; Z79.51 Long term (current) use of inhaled steroids; Z79.52 Long term (current) use of systemic steroids
CPT/HCPCS: 99285; 86900; 86901; 36415 ×2; 82553; 36430; 86850; 82550; 85025 ×2; 82272; 80053; 84484; 86920; P9016; A9270 ×8; J3490 ×2; J7030; J7512

== ENCOUNTER → 2016-12-22 | Outpatient (CLI) | payer MEDICARE, MEDICAID ==
--- NOTE | 2016-12-23 08:45 | RADIOLOGY REPORT (SQ) ---
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 TECHNIQUE: Blood glucose level was verified. Above dose of FDG was injected intravenously. 2-D seg mented attenuation correction images were obtained from the base of the skull to the midthighs. Nonc ontrast CT images were obtained for attenuation correction and fusion with emission images. CT image s were performed without oral or intravenous contrast and are not sensitive for parenchymal lesions. A series of overlapping emission PET images were obtained. Images reviewed and manipulated at [facility] work station by the radiologist. Images stored on PACS. LIMITATIONS: None. FINDINGS: HEAD AND NECK: No areas of abnormal metabolic activity in the soft tissues of the head and neck. CHEST: On axial image 83, a 1.6 x 1.5 cm spiculated nodule is present along the left lower lobe adjac ent to the major fissure. This is surrounded by radiotherapy markers. Currently this has SUV of 5 ( was 1.5 cm in greatest diameter with SUV 1.4 on PET-CT 08/04/2016). A less than 5 mm right upper lobe parenchymal nodule with surrounding radiotherapy markers is present on axial images 59, unchanged from multiple previous studies. No mediastinal adenopathy. ABDOMEN AND PELVIS: No areas of abnormal metabolic activity in the abdomen or pelvis. Expected physi ologic activity is present in the genitourinary system and bowel. PROXIMAL LOWER EXTREMITIES: No areas of abnormal metabolic activity in the soft tissues of the lower extremities. BONES: No abnormal metabolic activity in the visualized skeleton. ADDITIONAL CT FINDINGS: Multiple thoracic and lumbar kyphoplasties. Obstructive lung disease. Hiata l hernia. Calcified carotid bifurcations. Post cholecystectomy and hysterectomy. Right hemicolecto my. OTHER: Blood pool SUV of 1.7. Liver background SUV 2.1 IMPRESSION: Slight increase in size and definite increase in metabolic activity, left lower lobe nod ule since prior PET-CT 08/04/2016 TECHNICAL DOCUMENTATION: JOB ID: [id number] [employer]- All Rights Reserved
== END ==
LOC: RAD 16:00
PROVIDERS: ATTEND Internal Medicine Medical Oncology
DX: C34.32 Malignant neoplasm of lower lobe, left bronchus or lung (principal)
CPT/HCPCS: 78815; A9552

== ENCOUNTER 2016-12-31 04:06 | Inpatient (IN) | payer MEDICARE, MEDICAID, OTHER ==
[2016-12-31] MEDS ORDERED: IPRATROPIUM/ALBUTEROL 0.5-2.5 MG/3 ML AMPUL NEB ONE (04:11)
[2016-12-31] MEDS ORDERED: MAGNESIUM SULFATE/D5W 2 GM/200 ML RTUPB IV ONE (04:12)
--- NOTE | 2016-12-31 04:14 | ER Document Report ---
ED General - General Stated Complaint: DIFFICULTY BREATHING Notes: Patient is a 71-year-old female with a history of COPD and lung cancer presents with difficulty breathing. She has had cough and congestion for the last week. Today she started having worsening difficulty breathing that became much worse tonight. A month's was called. Patient was given 5 mg of albuterol and 3 mg of DuoNeb treatments. She was also given 125 mg Solu-Medrol. Patient denies ever being intubated but has been on BiPAP in the past and she says BiPAP works well for her. She is unsure if she has had fevers. She denies any vomiting. No diarrhea. No chest pain. No other complaints at this time. TRAVEL OUTSIDE OF THE [place] IN LAST 30 DAYS: No - Related Data Allergies/Adverse Reactions: Penicillins Allergy (Verified 08/23/16 14:32) Hives Past Medical History - Social History Smoking Status: Former Smoker Frequency of alcohol use: None Drug Abuse: None Family History: None - Past Medical History Cardiac Medical History: Reports: Hx Hypercholesterolemia, Hx Hypertension Denies: Hx Coronary Artery Disease, Hx Heart Attack Pulmonary Medical History: Reports: Hx Asthma, Hx Bronchitis, Hx COPD, Hx Pneumonia - gram-negative and MRSA pneumonia Denies: Hx Tuberculosis Neurological Medical History: Denies: Hx Cerebrovascular Accident, Hx Seizures Renal/ Medical History: Denies: Hx Peritoneal Dialysis Malignancy Medical History: Reports: Hx Lung Cancer - Squamous cell lung cancer , stage I GI Medical History: Reports: Hx Gastroesophageal Reflux Disease Musculoskeltal Medical History: Reports Hx Arthritis - RA all over Psychiatric Medical History: Reports: Hx Anxiety, Hx Depression Infectious Medical History: Reports: Hx MRSA - History of MRSA pneumonia Past Surgical History: Reports: Hx Abdominal Surgery - gastric bypass, sbo, Hx Appendectomy, Hx Cholecystectomy, Hx Hysterectomy, Hx Orthopedic Surgery - Immunizations Immunizations up to date: Yes Hx Diphtheria, Pertussis, Tetanus Vaccination: No Hx Pneumococcal Vaccination: 04/14/12 Review of Systems - Review of Systems Notes: My Normal Review Basic REVIEW OF SYSTEMS: CONSTITUTIONAL : Denies fever, chills, or sweats. Denies recent illness. EENT: Denies eye, ear, throat, or mouth pain or symptoms. Denies nasal or sinus congestion. CARDIOVASCULAR: Denies chest pain. RESPIRATORY: Difficulty breathing. GASTROINTESTINAL: Denies abdominal pain. Denies nausea, vomiting, or diarrhea. Denies constipation. Last BM: MUSCULOSKELETAL: Denies neck or back pain or joint pain or swelling. SKIN: Denies rash or skin lesions. NEUROLOGICAL: Denies altered mental status or loss of consciousness. Denies headache. Denies weakness or paralysis or loss of use of either side. Denies problems with gait or speech. Denies sensory or motor loss. ALL OTHER SYSTEMS REVIEWED AND NEGATIVE. Physical Exam - Vital signs Vitals: Resp Pulse Ox 34 H 93 12/31/16 04:12 12/31/16 04:12 - Notes Notes: General Appearance: Well nourished, alert, cooperative, moderate acute distress , no obvious discomfort. Very anxious. Vitals: reviewed, See vital signs table. Head: no swelling or tenderness to the head Eyes: PERRL, EOMI, Conjuctiva clear Mouth: No decreasd moisture Throat: No tonsillar inflammation, No airway obstruction, No lymphadenopathy Neck: Supple, no neck tenderness, No thyromegaly Lungs: Diffuse wheezing, No rales, No rhonci, moderate accessory muscle use, good air exchange bilaterally. Heart: Normal rate, Regular rythm, No murmur, no rub Abdomen: Normal BS, soft, No rigidity, No abdominal tenderness, No guarding, no rebound, no abdominal masses, no organomegaly Extremities: strength 5/5 in all extremities, good pulses in all extremities, no swelling or tenderness in the extremities, no edema. Skin: warm, dry, appropriate color, no rash Neuro: speech clear, oriented x 3, normal affect, responds appropriately to questions. Course - Re-evaluation Re-evalutation: 12/31/16 04:18 Patient is anxious and tremulous and therefore the initial EKG is eligible. We will repeat the EKG when she calms down. 12/31/16 06:30 Patient continues to clinically improve and looks well. She is feeling much improved on the BiPAP. She does have some scattered wheezing still but her lung gordon are improving greatly. Patient still requiring BiPAP. She does need admission. I did speak with Dr. England who agrees to admit the patient. Patient has no pneumonia on chest x-ray however does have leukocytosis and is a chronic smoker and therefore will be placed on Levaquin. Dictation of this chart was performed using voice recognition software; therefore, there may be some unintended grammatical errors. - Vital Signs Vital signs: Temp Pulse Resp BP Pulse Ox 99 F 147 H 17 128/99 H 97 12/31/16 05:46 12/31/16 04:21 12/31/16 06:15 12/31/16 06:02 12/31/16 06:15 - Laboratory Result Diagrams: 12/31/16 04:35 12/31/16 04:35 Laboratory results interpreted by me: 12/31/16 12/31/16 12/31/16 04:35 04:35 04:35 WBC 18.9 H Hgb 11.6 L Hct 35.1 L RDW 20.1 H Band Neutrophils % 10 H Abs Neuts (Manual) 14.6 H VBG pH 7.27 L VBG pCO2 64.8 H BUN 46 H Est GFR ( Amer) 57 L Est GFR (Non-Af Amer) 47 L Glucose 123 H Direct Bilirubin 0.5 H AST 45 H ALT 64 H - EKG Interpretation by Me Additional EKG results interpreted by me: 12/31/16 06:02 EKG is reviewed and interpreted by me. EKG shows sinus tachycardia with a rate of [address] segment elevation or depression. No ischemic T-wave inversions. Portable, QRS duration, QTc intervals are within normal range. No old EKG available for comparison. Critical Care Note - Critical Care Note Total time excluding time spent on procedures (mins): 40 Comments: Bryan care time for this patient not including time spent on procedures approximately 40 minutes due to management of respiratory distress and COPD exacerbation. Also management of patient's BiPAP. Discharge - Discharge Clinical Impression: COPD exacerbation Leukocytosis Qualifiers: Leukocytosis type: unspecified Qualified Code(s): D72.829 - Elevated white blood cell count, unspecified Condition: Stable Disposition: ADMITTED INPATIENT Admitting Provider: Lenore Unit Admitted: IMCU Referrals: NATACHA ENGLAND MD [Primary Care Provider] - Follow up as needed
[2016-12-31] MEDS ORDERED: HYDROMORPHONE HCL INJ/PF 2 MG/ML AMPULE IV ONE (04:31)
[2016-12-31 04:45] LABS: VENOUS BLOOD BASE EXCESS 0.8 mmol/L; VENOUS BLOOD PCO2 64.8 mmHg (35-63); VENOUS BLOOD PH 7.27 (7.30-7.42)
[2016-12-31 04:52] LABS: HEMATOCRIT 35.1 % (36.0-47.0); HEMOGLOBIN 11.6 g/dL (12.0-15.5); HGB HCT DIFFERENCE -0.3; MEAN CORPUSCULAR HGB CONC 33.1 g/dL (32.0-36.0); MEAN CORPUSCULAR VOLUME 88 fl (80-97); RED BLOOD COUNT 3.99 10^6/uL (3.72-5.28); RED CELL DISTRIBUTION WIDTH 20.1 % (11.5-14.0); WHITE BLOOD COUNT 18.9 10^3/uL (4.0-10.5)
[2016-12-31] MEDS: MAGNESIUM SULFATE/D5W 1 GM/100 ML RTUPB IV SCH ×2 (04:53→06:11)
[2016-12-31 05:03] LABS: ALANINE AMINOTRANSFERASE 64 U/L (9-52); ALBUMIN 3.8 g/dL (3.5-5.0); ALKALINE PHOSPHATASE 118 U/L (38-126); ANION GAP 10 (5-19); ASPARTATE AMINO TRANSFERASE 45 U/L (14-36); BILIRUBIN,DIRECT 0.5 mg/dL (0.0-0.4); BILIRUBIN,TOTAL 0.5 mg/dL (0.2-1.3); BLOOD UREA NITROGEN 46 mg/dL (7-20); CALCIUM 9.1 mg/dL (8.4-10.2); CARBON DIOXIDE 30 mmol/L (22-30); CHLORIDE 98 mmol/L (98-107); CREATININE RESULT 1.13 mg/dL (0.52-1.25); GLUCOSE 123 mg/dL (75-110); POTASSIUM 4.9 mmol/L (3.6-5.0); SODIUM 138.3 mmol/L (137-145); TOTAL PROTEIN 6.6 g/dL (6.3-8.2)
[2016-12-31] MEDS ORDERED: ONDANSETRON HCL INJ/PF 4 MG/2 ML SDV ONE (05:25)
--- NOTE | 2016-12-31 05:36 | RADIOLOGY REPORT (SQ) ---
EXAM DESCRIPTION: CHEST SINGLE VIEW COMPLETED DATE/TIME: 12/31/2016 5:05 am REASON FOR STUDY: dyspnea COMPARISON: 10/30/2016. 09/29/2016. CT, 08/21/2016. EXAM PARAMETERS: NUMBER OF VIEWS: One view. TECHNIQUE: Single frontal radiographic view of the chest acquired. RADIATION DOSE: NA LIMITATIONS: None. FINDINGS: LUNGS AND PLEURA: Mild mixed interstitial and airspace opacity. Mild hyperinflation. MEDIASTINUM AND HILAR STRUCTURES: No masses. Contour normal. HEART AND VASCULAR STRUCTURES: Normal cardiac silhouette size. Atherosclerosis. BONES: Fever plasty at the mid thoracic spine level. HARDWARE: Surgical clips are overlying bilateral hemithoraces. OTHER: No other significant finding. IMPRESSION: No significant interval change. TECHNICAL DOCUMENTATION: JOB ID: [id number]
[2016-12-31 05:43] LABS: BAND NEUTROPHILS % (MANUAL) 10 % (3-5); BASOPHILS % (MANUAL) 0 % (0-2); EOSINOPHILS % (MANUAL) 0 % (0-6); LYMPHOCYTES % (MANUAL) 18 % (13-45); TOTAL CELLS COUNTED 100
[2016-12-31 05:47] LABS: ANISOCYTOSIS 2+
[2016-12-31 05:48] LABS: OVALOCYTES SLIGHT; POIKILOCYTOSIS SLIGHT; SCHISTOCYTES SLIGHT
[2016-12-31] MEDS ORDERED: LEVOFLOXACIN 750 MG/D5W RTU 750 MG/150 ML RTUPB IV ONE (05:51)
[2016-12-31] MEDS ORDERED: LORAZEPAM INJ 2 MG/1 ML VIAL IV ONE (06:21)
--- NOTE | 2016-12-31 07:53 | EKG REPORT ---
SEVERITY:- ABNORMAL ECG - PACEMAKER SPIKES OR ARTIFACTS SINUS TACHYCARDIA MULTIPLE ATRIAL PREMATURE COMPLEXES LEFT ANTERIOR FASCICULAR BLOCK RVH WITH SECONDARY REPOLARIZATION ABNORMALITY : Confirmed by: Michael Olivier MD 31-Dec-2016 07:52:30
[2016-12-31] MEDS: IPRATROPIUM/ALBUTEROL 0.5-2.5 MG/3 ML AMPUL NEB PRN (08:45)
[2016-12-31] MEDS: NORMAL SALINE 1000 ML 1,000 ML IV PRN (08:46)
[2016-12-31 09:48] LABS: LIPASE 34.1 U/L (23-300); MAGNESIUM 2.9 mg/dL (1.6-2.3)
[2016-12-31 09:50] LABS: AMYLASE < 30 U/L (30-110)
[2016-12-31 10:26] LABS: THYROID STIMULATING HORMONE 1.31 uIU/mL (0.47-4.68)
[2016-12-31] MEDS: ENOXAPARIN SODIUM INJ 40 MG/0.4 ML DISP.SYRIN SUBCUT SCH (11:02)
[2016-12-31] MEDS ORDERED: ALBUTEROL SULFATE HFA (90 MCG/PUFF) 8 GM MDI (1 MDI/ER DISP) IH PRN (12:24)
[2016-12-31] MEDS ORDERED: (PENDING PHARMACY ID) (Oxycodone Hcl/Acetaminophen [Percocet 10-325 Mg Tablet] 1 EACH) PO PRN (12:24)
[2016-12-31] MEDS ORDERED: OXYCODONE HCL IR 5 MG TABLET PO PRN (12:30)
--- NOTE | 2016-12-31 12:50 | EKG REPORT ---
SEVERITY:- ABNORMAL ECG - SINUS TACHYCARDIA VENTRICULAR BIGEMINY LEFT ANTERIOR FASCICULAR BLOCK RVH WITH SECONDARY REPOLARIZATION ABNORMALITY : Confirmed by: Michael Olivier MD 31-Dec-2016 12:49:48
[2016-12-31] MEDS: PREGABALIN 75 MG CAPSULE PO SCH ×2 (13:49→21:31)
[2016-12-31 14:21] LABS: APPEARANCE,URINE SLIGHTLY-CLOUDY; BILIRUBIN,URINE NEGATIVE (NEGATIVE); GLUCOSE, URINE NEGATIVE (NEGATIVE); KETONES,URINE NEGATIVE (NEGATIVE); LEUKOCYTE ESTERASE,URINE NEGATIVE (NEGATIVE); NITRITE,URINE NEGATIVE (NEGATIVE); PROTEIN,URINE NEGATIVE (NEGATIVE); URINE SPECIFIC GRAVITY 1.013; UROBILINOGEN,URINE NEGATIVE mg/dL (<2.0)
[2016-12-31 14:33] LABS: URINE BARBITURATES SCREEN NEGATIVE; URINE METHADONE SCREEN NEGATIVE; URINE PHENCYCLIDINE SCREEN NEGATIVE
[2016-12-31 14:38] LABS: URINE OPIATES LOW UNCONFIRMED POSITIVE
[2016-12-31] MEDS: OXYCODONE-ACETAMINOPHEN 5-325 MG TABLET PO PRN (18:25)
[2016-12-31] MEDS: OXYCODONE HCL IR 5 MG TABLET PO PRN (18:30)
--- NOTE | 2016-12-31 20:41 | PDOC H&P ---
History of Present Illness Admission Date/PCP: 12/31/16 08:07 NATACHA ENGLAND MD History of Present Illness: HUNTER GRANADOS is a 71 year old female, She has a history of chronic respiratory failure, resident of the residential at [place] she was transferred to the emergency room for evaluation of shortness of breath. Patient is well-known to me she has multiple hospitalizations for respiratory related conditions, the last time she was admitted I discussed the option of palliative care/hospice care with the patient and family but they declined the option. She has end-stage COPD on she tend to decompensate when exposed to any form of stress. I believe she recently saw the oncologist and a PET scan was done that showed a slight increase in the lung cancer. 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 This has been ongoing for the last more than 12 months.. A chest x-ray was done in the emergency room, it did not show any acute infiltrate to suggest pneumonia most likely her symptoms is due to COPD exacerbation she is requiring noninvasive positive pressure ventilation, with BiPAP. The blood work revealed leukocytosis most likely from prednisone that she is on the residential. Past Medical History Cardiac Medical History: Reports: Hyperlipidema, Hypertension Pulmonary Medical History: Reports: Asthma, Bronchitis, Chronic Obstructive Pulmonary Disease (COPD), Pneumonia - gram-negative and MRSA pneumonia Malignancy Medical History: Reports: Lung Cancer - Squamous cell lung cancer, stage I GI Medical History: Reports: Gastroesophageal Reflux Disease Musculoskeltal Medical History: Reports: Arthritis - RA all over Psychiatric Medical History: Reports: Depression Hematology: Reports: Anemia Infectious Medical History: Reports: 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 Past Surgical History Past Surgical History: Reports: Appendectomy, Cholecystectomy, Hysterectomy, Orthopedic Surgery Social History Smoking Status: Former Smoker Cigarettes Packs Per Day: 1 Frequency of Alcohol Use: None Hx Recreational Drug Use: No Drugs: None Hx Prescription Drug Abuse: No - Advance Directive Resuscitation Status: Full Code Family History Family History: None Parental Family History Reviewed: Yes Children Family History Reviewed: Yes Sibling(s) Family History Reviewed.: Yes Medication/Allergy Home Medications: Albuterol Sulfate [Proair HFA] 2 puff IH Q4HP PRN 12/31/16 Amlodipine Besylate [Norvasc 5 mg Tablet] 5 mg PO DAILY 12/31/16 Atorvastatin Calcium [Lipitor 10 mg Tablet] 10 mg PO QHS 12/31/16 Budesonide/Formoterol Fumarate [Symbicort Hfa 160-4.5 Mcg Inhaler 6 gm] 1 puff IH Q12 12/31/16 Citalopram Hydrobromide [Celexa 20 mg Tablet] 20 mg PO DAILY 12/31/16 Clonidine HCl [Catapres 0.1 mg Tablet] 0.1 mg PO Q12 12/31/16 Ergocalciferol (Vitamin D2) [Drisdol 50,000 Unit (1.25MG) Capsule] 50,000 unit PO [id number] 12/31/16 Ferrous Sulfate [Feosol 325 mg Tablet] 325 mg PO DAILY 12/31/16 Fluconazole [Diflucan 100 Mg Tablet] 100 mg PO DAILY 12/31/16 Ipratropium/Albuterol Sulfate [Duoneb 3 ml Ampul] 3 ml NEB RTQ6HP PRN 12/31/16 Levocetirizine Dihydrochloride [Xyzal] 5 mg PO QHS 12/31/16 Losartan Potassium [Cozaar 100 mg Tablet] 100 mg PO DAILY 12/31/16 Mirtazapine [Remeron 15 mg Tablet] 7.5 mg PO QHS 12/31/16 Omeprazole 40 mg PO QAM 12/31/16 Oxycodone HCl/Acetaminophen [Percocet 10-325 Mg Tablet] 1 each PO Q6HP PRN 12/31 Prednisone [Deltasone 20 mg Tablet] 40 mg PO DAILY 12/31/16 Pregabalin [Lyrica 75 mg Capsule] 75 mg PO Q8 12/31/16 Tiotropium [place] [Spiriva Handihaler 18 mcg/dose (30 Dose)] 1 cap IH DAILY Allergies/Adverse Reactions: Penicillins Allergy (Verified 08/23/16 14:32) Hives Review of Systems Constitutional: ABSENT: chills, fever(s), headache(s), weight gain, weight loss Eyes: ABSENT: visual disturbances Ears: ABSENT: hearing changes Cardiovascular: ABSENT: chest pain, dyspnea on exertion, edema, orthropnea, palpitations Respiratory: PRESENT: cough, dyspnea Gastrointestinal: ABSENT: abdominal pain, constipation, diarrhea, hematemesis, hematochezia, nausea, vomiting Genitourinary: ABSENT: dysuria, hematuria Musculoskeletal: PRESENT: back pain Integumentary: ABSENT: rash, wounds Neurological: ABSENT: abnormal gait, abnormal speech, confusion, dizziness, focal weakness, syncope Psychiatric: ABSENT: anxiety, depression, homidical ideation, suicidal ideation Endocrine: ABSENT: cold intolerance, heat intolerance, menstrual abnormalities, polydipsia, polyuria Hematologic/Lymphatic: ABSENT: easy bleeding, easy bruising, lymphadenopathy Physical Exam Vital Signs: Temp Pulse Resp BP Pulse Ox 97.4 F 100 18 104/58 L 98 12/31/16 18:41 12/31/16 19:49 12/31/16 18:41 12/31/16 18:41 12/31/16 18:41 Intake & Output 12/30/16 12/31/16 01/01/17 06:59 06:59 06:59 Intake Total 1413 Output Total 750 Balance 663 General appearance: PRESENT: severe distress Head exam: PRESENT: atraumatic, normocephalic Eye exam: PRESENT: conjunctiva pink, EOMI, PERRLA Ear exam: PRESENT: normal external ear exam Neck exam: PRESENT: full ROM Respiratory exam: PRESENT: wheezes Cardiovascular exam: PRESENT: RRR, +S1, +S2 Pulses: PRESENT: normal dorsalis pedis pul, +2 pedal pulses bilateral Vascular exam: PRESENT: normal capillary refill GI/Abdominal exam: PRESENT: normal bowel sounds, soft Rectal exam: PRESENT: deferred Neurological exam: PRESENT: alert, awake, oriented to person, oriented to place , oriented to time, oriented to situation, CN II-XII grossly intact Psychiatric exam: PRESENT: anxious, appropriate affect, normal mood Skin exam: PRESENT: dry, intact, warm Results Laboratory Results: 12/31/16 12/31/16 12/31/16 09:00 09:00 09:00 Magnesium 2.9 H Ammonia < 8.7 L Amylase < 30 L Lipase 34.1 TSH 1.31 Free T4 0.95 Urine Color Urine Appearance Urine pH Ur Specific [place] Urine Protein Urine Glucose (UA) Urine Ketones Urine Blood Urine Nitrite Ur Leukocyte Esterase Urine WBC (Auto) Urine RBC (Auto) 12/31/16 13:45 Magnesium Ammonia Amylase Lipase TSH Free T4 Urine Color YELLOW Urine Appearance SLIGHTLY-CLOUDY Urine pH 5.0 Ur Specific [place] 1.013 Urine Protein NEGATIVE Urine Glucose (UA) NEGATIVE Urine Ketones NEGATIVE Urine Blood NEGATIVE Urine Nitrite NEGATIVE Ur Leukocyte Esterase NEGATIVE Urine WBC (Auto) 1 Urine RBC (Auto) 1 12/31/16 12/31/16 12/31/16 09:00 09:00 09:00 Creatine Kinase 36 Troponin I 0.060 NT-Pro-B Natriuret Pep 4290 H 12/31/16 12/31/16 15:22 15:22 Creatine Kinase 35 Troponin I 0.026 NT-Pro-B Natriuret Pep Impressions: Chest X-Ray 12/31/16 04:11 IMPRESSION: No significant interval change. Assessment & Plan - Diagnosis (1) Acute and chronic respiratory failure ([id number]) Qualifiers: Respiratory failure complication: hypoxia and hypercapnia Qualified Code(s) : J96.21 - Acute and chronic respiratory failure with hypoxia; J96.22 - Acute and chronic respiratory failure with hypercapnia Is this a current diagnosis for this admission?: Yes Plan: She will continue noninvasive positive pressure ventilation with BiPAP hopefully will be able to avoid mechanical ventilation (2) End stage COPD Is this a current diagnosis for this admission?: Yes Plan: She has end-stage COPD, no definitive pneumonia process but she will be given antibiotic (3) Compression fracture of thoracic vertebra, non-traumatic Qualifiers: Encounter type: subsequent encounter Fracture healing: with routine healing Qualified Code(s): M48.54XD - Collapsed vertebra, not elsewhere classified, thoracic region, subsequent encounter for fracture with routine healing Is this a current diagnosis for this admission?: Yes (4) 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
[2016-12-31] MEDS: BUDESONIDE/FORMOTEROL 160-4.5 MCG 60 PUFF/6 GM MDI IH SCH (21:29)
[2016-12-31] MEDS: CETIRIZINE 5 MG TABLET PO SCH (21:29)
[2016-12-31] MEDS: MIRTAZAPINE 15 MG TABLET PO SCH (21:31)
[2016-12-31] MEDS: ATORVASTATIN CALCIUM 10 MG TABLET PO SCH (21:32)
[2016-12-31] MEDS: CLONIDINE HCL 0.1 MG TABLET PO SCH (21:33)
[2017-01-01] MEDS: NORMAL SALINE 1000 ML 1,000 ML IV PRN (04:31)
[2017-01-01] MEDS: PREGABALIN 75 MG CAPSULE PO SCH ×3 (05:17→22:05)
[2017-01-01] MEDS ORDERED: LANSOPRAZOLE 15 MG TAB.RAP.DR PO SCH (08:00)
[2017-01-01] MEDS: IPRATROPIUM/ALBUTEROL 0.5-2.5 MG/3 ML AMPUL NEB PRN ×3 (08:14→20:10)
[2017-01-01] MEDS: LANSOPRAZOLE 30 MG TAB.RAP.DR PO SCH (08:35)
[2017-01-01] MEDS: OXYCODONE HCL IR 5 MG TABLET PO PRN ×3 (08:40→20:03)
[2017-01-01] MEDS: OXYCODONE-ACETAMINOPHEN 5-325 MG TABLET PO PRN ×3 (08:41→20:03)
[2017-01-01] MEDS: CITALOPRAM HYDROBROMIDE 20 MG TABLET PO SCH (10:13)
[2017-01-01] MEDS: AMLODIPINE BESYLATE 5 MG TABLET PO SCH (10:13)
[2017-01-01] MEDS: LOSARTAN POTASSIUM 50 MG TABLET PO SCH (10:14)
[2017-01-01] MEDS: FLUCONAZOLE 100 MG TABLET PO SCH (10:15)
[2017-01-01] MEDS: CLONIDINE HCL 0.1 MG TABLET PO SCH ×2 (10:15→22:05)
[2017-01-01] MEDS: TIOTROPIUM BROMIDE DPI 5 CAP/KIT (18 MCG/CAP) IH SCH (10:16)
[2017-01-01] MEDS: BUDESONIDE/FORMOTEROL 160-4.5 MCG 60 PUFF/6 GM MDI IH SCH ×2 (10:16→22:53)
[2017-01-01] MEDS: FERROUS SULFATE 325 MG TABLET PO SCH (10:16)
[2017-01-01] MEDS: ENOXAPARIN SODIUM INJ 40 MG/0.4 ML DISP.SYRIN SUBCUT SCH (10:22)
--- NOTE | 2017-01-01 18:55 | PDOC PROGRESS REPORT ---
Subjective Progress Note for:: 01/01/17 Subjective:: She complained of back pain., She has a history of osteoporotic compression fracture of lumbar vertebrae L3-L4 MRI of the lumbar spine was done, it showed a new anterior wedge compression fracture involving the anterior two thirds of L2 vertebral body with approximately 20% loss of height there was no extension into the pedicles. Physical Exam Vital Signs: Temp Pulse Resp BP Pulse Ox 98.3 F 85 20 116/61 93 01/01/17 15:24 01/01/17 16:07 01/01/17 16:07 01/01/17 15:24 01/01/17 16:07 Intake & Output 12/31/16 01/01/17 01/02/17 06:59 06:59 06:59 Intake Total 2917 1902 Output Total 750 800 Balance 2167 1102 Weight 76.8 kg General appearance: PRESENT: severe distress Eye exam: PRESENT: PERRLA Respiratory exam: PRESENT: wheezes Cardiovascular exam: PRESENT: +S1, +S2 GI/Abdominal exam: PRESENT: soft Neurological exam: PRESENT: alert Results Laboratory Results: 12/31/16 12/31/16 12/31/16 09:00 09:00 09:00 Creatine Kinase 36 Troponin I 0.060 NT-Pro-B Natriuret Pep 4290 H 12/31/16 12/31/16 12/31/16 15:22 15:22 21:30 Creatine Kinase 35 29 L Troponin I 0.026 NT-Pro-B Natriuret Pep 12/31/16 21:30 Creatine Kinase Troponin I 0.021 NT-Pro-B Natriuret Pep Impressions: Chest X-Ray 12/31/16 04:11 IMPRESSION: No significant interval change. Assessment & Plan - Diagnosis (1) Acute and chronic respiratory failure ([id number]) Qualifiers: Respiratory failure complication: hypoxia and hypercapnia Qualified Code(s) : J96.21 - Acute and chronic respiratory failure with hypoxia; J96.22 - Acute and chronic respiratory failure with hypercapnia Is this a current diagnosis for this admission?: Yes (2) End stage COPD Is this a current diagnosis for this admission?: Yes (3) Compression fracture of thoracic vertebra, non-traumatic Qualifiers: Encounter type: subsequent encounter Fracture healing: with routine healing Is this a current diagnosis for this admission?: Yes (4) 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 A consultation will be requested from pain specialist for kyphoplasty
[2017-01-01] MEDS: CLONAZEPAM 1 MG TABLET PO PRN (18:57)
--- NOTE | 2017-01-01 21:56 | RADIOLOGY REPORT (SQ) ---
EXAM DESCRIPTION: MRI LUMBAR SPINE WITHOUT COMPLETED DATE/TIME: 01/01/2017 9:32 pm REASON FOR STUDY: BACK PAIN IMMOBILITY COMPARISON: February 2015 TECHNIQUE: Sagittal and Axial imaging includes T1, T2, STIR and gradient echo sequences. Coronal T2/ HASTE imaging. LIMITATIONS: None. FINDINGS: VISUALIZED UPPER ABDOMEN: Limited evaluation. No acute or suspicious findings suggested. SEGMENTATION: Transitional anatomy. Transitional S1. ALIGNMENT: Anatomic. VERTEBRAE: Treated compression fractures of L3 and L4. There is a new anterior wedge compression fra cture involving the anterior 2/3 of the L2 vertebral body with approximately 20% loss of height. No extension into the pedicles. Old T12 compression fracture. BONE MARROW: Normal. No marrow replacement or reactive changes. DISC SIGNAL: Normal. No significant abnormal signal or loss of height. POSTERIOR ELEMENTS: Generally intact. No pars defect evident. HARDWARE: None in the spine. CORD AND CONUS: Normal in size and signal intensity. Conus at the appropriate level. SOFT TISSUES: No aortic aneurysm seen. No bulky retroperitoneal adenopathy or mass. No paraspinal mas s or fluid. L1-L2: Generalized disc bulge asymmetric left with leftward flattening of the thecal sac. No narrowi ng of the exit foramina. L2-L3: Mild disc bulge. Mild narrowing of the exit foramina. L3-L4: Generalized disc bulge asymmetric right. Facet hypertrophy. Moderate narrowing of the right exit foramina and mild narrowing of the left exit foramina. L4-L5: Generalized degenerative disc with diffuse disc bulge. Facet ligamentous hypertrophy. Marked exit foraminal stenosis. marked central canal stenosis. L5-S1: Generalized disc bulge asymmetric left. Moderate narrowing of left exit foramina. LOWER THORACIC: Generalized disc bulge T11-12 with facet overgrowth resulting in central canal stenos is. SACRUM: Visualized upper sacrum intact. OTHER: No other significant findings. IMPRESSION: Acute anterior wedge compression fracture L2 involving the anterior 2/3 of vertebral bod y with approximately 20% loss of height. No extension into the pedicles. Old treated and untreated compression fractures Multilevel lumbar spondylosis. Most severe finding at L4-5 with marked exit foraminal stenosis and m arked central canal stenosis. COMMENT: Amenable to kyphoplasty. TECHNICAL DOCUMENTATION: JOB ID: [id number] [employer]- All Rights Reserved
[2017-01-01] MEDS: MIRTAZAPINE 15 MG TABLET PO SCH (22:04)
[2017-01-01] MEDS: CETIRIZINE 5 MG TABLET PO SCH (22:04)
[2017-01-01] MEDS: ATORVASTATIN CALCIUM 10 MG TABLET PO SCH (22:05)
[2017-01-02] MEDS: OXYCODONE HCL IR 5 MG TABLET PO PRN ×4 (03:58→23:46)
[2017-01-02] MEDS: OXYCODONE-ACETAMINOPHEN 5-325 MG TABLET PO PRN ×4 (03:59→23:45)
[2017-01-02 05:55] LABS: ABSOLUTE EOSINOPHILS # (AUTO) 0.1 10^3/uL (0.0-0.6); ABSOLUTE LYMPHOCYTES (AUTO) 1.7 10^3/uL (0.5-4.7); ABSOLUTE MONOCYTES (AUTO) 0.9 10^3/uL (0.1-1.4); ABSOLUTE NEUT (AUTO) 13.5 10^3/uL (1.7-8.2); BASOPHILS % (AUTO) 0.1 % (0-2); EOSINOPHILS % (AUTO) 0.5 % (0-6); HEMATOCRIT 29.3 % (36.0-47.0); HEMOGLOBIN 9.9 g/dL (12.0-15.5); HGB HCT DIFFERENCE 0.4; LYMPHOCYTES % (AUTO) 10.5 % (13-45); MEAN CORPUSCULAR HEMOGLOBIN 29.7 pg (27.0-33.4); MEAN CORPUSCULAR HGB CONC 33.9 g/dL (32.0-36.0); MEAN CORPUSCULAR VOLUME 88 fl (80-97); MONOCYTES % (AUTO) 5.8 % (3-13); RED BLOOD COUNT 3.34 10^6/uL (3.72-5.28); RED CELL DISTRIBUTION WIDTH 19.9 % (11.5-14.0); SEGMENTED NEUTROPHILS % (AUTO) 83.1 % (42-78); WHITE BLOOD COUNT 16.2 10^3/uL (4.0-10.5)
[2017-01-02 06:17] LABS: ANION GAP 7 (5-19); BLOOD UREA NITROGEN 28 mg/dL (7-20); CALCIUM 8.5 mg/dL (8.4-10.2); CARBON DIOXIDE 25 mmol/L (22-30); CHLORIDE 107 mmol/L (98-107); CREATININE RESULT 0.78 mg/dL (0.52-1.25); GLUCOSE 62 mg/dL (75-110); POTASSIUM 5.1 mmol/L (3.6-5.0); SODIUM 138.7 mmol/L (137-145)
--- NOTE | 2017-01-02 06:27 | Physician Advisory Note ---
Physician Advisor ProgressNote .: Pursuant to the plan for [facility], I have reviewed the medical record for this patient. Physician Advisor Statement: Please consider documenting, if you agree: 1. "Suspect acute bronchitis" - vs - "suspected gram neg pneumonia, not showing on CXR due to underlying lung dz/hyperinflation, immunocompromise from prednisone, intravascular volume depletion, ..." - CXR = mixed opacities without obvious change, sputum growing GNRs, tx'ing with Levaquin, BUN elevated 2. "Immunocompromised due to prednisone" 3. please clarify CA dx - H&P states SCLC stage 1, prog note states "malig neoplasm metastatic to Lt lung" (leaving one to wonder what/where is the primary CA) 4. Does pt require O2 at baseline? If so, how much? 5. ? - "Acute Coronary Syndrome" - Trop I's 0.060, then 0.026, then 0.021, with severe SOB ... 6. ? - "Chronic Anemia of Nutritional Fe Defic" (or Chr Blood Loss Fe defic due to ____, or ...) Support for dx Ac on Chr hypoxemic/hypercarbic Resp FAilure - pt chronically on 40mg prednisone, had developed worsened SOB + cough w/green thick sputum, came in w/O2 sat only 93% on nonrebreather O2, then 85% on RA; in triage she was tripoding, retracting, w/labored breathing, accessory muscle use, speaking in 1 word sentences, diffuse wheezing, severe distress, HR 147, RR34, requiring Bipap....
[2017-01-02] MEDS: LEVOFLOXACIN 750 MG/D5W RTU 750 MG/150 ML RTUPB IV SCH (06:36)
[2017-01-02] MEDS: PREGABALIN 75 MG CAPSULE PO SCH ×3 (06:36→21:27)
[2017-01-02] MEDS: LANSOPRAZOLE 30 MG TAB.RAP.DR PO SCH (07:48)
[2017-01-02] MEDS: MAGNESIUM HYDROXIDE SUSP 30 ML UDCUP PO PRN (08:31)
[2017-01-02] MEDS: ENOXAPARIN SODIUM INJ 40 MG/0.4 ML DISP.SYRIN SUBCUT SCH (09:41)
[2017-01-02] MEDS: FERROUS SULFATE 325 MG TABLET PO SCH (09:42)
[2017-01-02] MEDS: AMLODIPINE BESYLATE 5 MG TABLET PO SCH (09:42)
[2017-01-02] MEDS: CITALOPRAM HYDROBROMIDE 20 MG TABLET PO SCH (09:43)
[2017-01-02] MEDS: LOSARTAN POTASSIUM 50 MG TABLET PO SCH (09:43)
[2017-01-02] MEDS: CLONIDINE HCL 0.1 MG TABLET PO SCH ×2 (09:43→21:28)
[2017-01-02] MEDS: TIOTROPIUM BROMIDE DPI 5 CAP/KIT (18 MCG/CAP) IH SCH (09:43)
[2017-01-02] MEDS: FLUCONAZOLE 100 MG TABLET PO SCH (09:43)
[2017-01-02] MEDS: BUDESONIDE/FORMOTEROL 160-4.5 MCG 60 PUFF/6 GM MDI IH SCH ×2 (09:44→21:27)
[2017-01-02] MEDS: CLONAZEPAM 1 MG TABLET PO PRN (09:44)
[2017-01-02] MEDS ORDERED: ERGOCALCIFEROL (VITAMIN D2) 50000 UNIT (1.25 MG) CAPSULE PO SCH (10:00)
[2017-01-02] MEDS: IPRATROPIUM/ALBUTEROL 0.5-2.5 MG/3 ML AMPUL NEB PRN ×2 (14:39→17:06)
[2017-01-02] MEDS: BISACODYL 10 MG SUPP.RECT PR PRN (18:19)
--- NOTE | 2017-01-02 21:02 | PDOC PROGRESS REPORT ---
Subjective Progress Note for:: 01/02/17 Subjective:: She complained of back pain., She has a history of osteoporotic compression fracture of lumbar vertebrae L3-L4 MRI of the lumbar spine was done, it showed a new anterior wedge compression fracture involving the anterior two thirds of L2 vertebral body with approximately 20% loss of height there was no extension into the pedicles. Physical Exam Vital Signs: Temp Pulse Resp BP Pulse Ox 97.7 F 93 22 H 120/63 100 01/02/17 15:40 01/02/17 19:00 01/02/17 17:06 01/02/17 15:40 01/02/17 17:06 Intake & Output 01/01/17 01/02/17 01/03/17 06:59 06:59 06:59 Intake Total 2917 3292 1318 Output Total 750 800 Balance 2167 2492 1318 Weight 76.8 kg 76 kg General appearance: PRESENT: mild distress Head exam: PRESENT: atraumatic, normocephalic Eye exam: PRESENT: PERRLA Neck exam: PRESENT: full ROM Respiratory exam: PRESENT: rhonchi Cardiovascular exam: PRESENT: RRR, +S1, +S2 Vascular exam: PRESENT: normal capillary refill GI/Abdominal exam: PRESENT: normal bowel sounds, soft Rectal exam: PRESENT: deferred Neurological exam: PRESENT: alert, CN II-XII grossly intact Skin exam: PRESENT: dry, intact, warm Results Laboratory Results: 01/02/17 05:13 01/02/17 05:13 01/02/17 01/02/17 05:13 05:13 WBC 16.2 H RBC 3.34 L Hgb 9.9 L Hct 29.3 L MCV 88 MCH 29.7 MCHC 33.9 RDW 19.9 H Plt Count 258 Seg Neutrophils % 83.1 H Lymphocytes % 10.5 L Monocytes % 5.8 Eosinophils % 0.5 Basophils % 0.1 Absolute Neutrophils 13.5 H Absolute Lymphocytes 1.7 Absolute Monocytes 0.9 Absolute Eosinophils 0.1 Absolute Basophils 0.0 Sodium 138.7 Potassium 5.1 H Chloride 107 Carbon Dioxide 25 Anion Gap 7 BUN 28 H Creatinine 0.78 Est GFR ( Amer) > 60 Est GFR (Non-Af Amer) > 60 Glucose 62 L Calcium 8.5 12/31/16 13:45 Catheterized Urine Urine Culture - Final NO GROWTH 2 DAYS 12/31/16 12/31/16 12/31/16 09:00 09:00 09:00 Creatine Kinase 36 Troponin I 0.060 NT-Pro-B Natriuret Pep 4290 H 12/31/16 12/31/16 12/31/16 15:22 15:22 21:30 Creatine Kinase 35 29 L Troponin I 0.026 NT-Pro-B Natriuret Pep 12/31/16 21:30 Creatine Kinase Troponin I 0.021 NT-Pro-B Natriuret Pep Impressions: Chest X-Ray 12/31/16 04:11 IMPRESSION: No significant interval change. Lumbar Spine MRI 01/01/17 17:26 IMPRESSION: Acute anterior wedge compression fracture L2 involving the anterior 2/3 of vertebral body with approximately 20% loss of height. No extension into the pedicles. Old treated and untreated compression fractures Multilevel lumbar spondylosis. Most severe finding at L4-5 with marked exit foraminal stenosis and marked central canal stenosis. Assessment & Plan - Diagnosis (1) Acute and chronic respiratory failure ([id number]) Qualifiers: Respiratory failure complication: hypoxia and hypercapnia Qualified Code(s) : J96.21 - Acute and chronic respiratory failure with hypoxia; J96.22 - Acute and chronic respiratory failure with hypercapnia Is this a current diagnosis for this admission?: Yes (2) End stage COPD Is this a current diagnosis for this admission?: Yes (3) Compression fracture of thoracic vertebra, non-traumatic Qualifiers: Encounter type: subsequent encounter Fracture healing: with routine healing Is this a current diagnosis for this admission?: Yes (4) 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
[2017-01-02] MEDS: CETIRIZINE 5 MG TABLET PO SCH (21:27)
[2017-01-02] MEDS: MIRTAZAPINE 15 MG TABLET PO SCH (21:27)
[2017-01-02] MEDS: ATORVASTATIN CALCIUM 10 MG TABLET PO SCH (21:29)
[2017-01-03 05:02] LABS: ABSOLUTE EOSINOPHILS # (AUTO) 0.1 10^3/uL (0.0-0.6); ABSOLUTE LYMPHOCYTES (AUTO) 1.7 10^3/uL (0.5-4.7); ABSOLUTE MONOCYTES (AUTO) 0.7 10^3/uL (0.1-1.4); ABSOLUTE NEUT (AUTO) 10.7 10^3/uL (1.7-8.2); BASOPHILS % (AUTO) 0.3 % (0-2); EOSINOPHILS % (AUTO) 0.8 % (0-6); HEMATOCRIT 28.6 % (36.0-47.0); HEMOGLOBIN 9.5 g/dL (12.0-15.5); HGB HCT DIFFERENCE -0.1; LYMPHOCYTES % (AUTO) 12.7 % (13-45); MEAN CORPUSCULAR HEMOGLOBIN 29.1 pg (27.0-33.4); MEAN CORPUSCULAR HGB CONC 33.3 g/dL (32.0-36.0); MEAN CORPUSCULAR VOLUME 88 fl (80-97); MONOCYTES % (AUTO) 5.5 % (3-13); RED BLOOD COUNT 3.27 10^6/uL (3.72-5.28); RED CELL DISTRIBUTION WIDTH 19.9 % (11.5-14.0); SEGMENTED NEUTROPHILS % (AUTO) 80.7 % (42-78); WHITE BLOOD COUNT 13.2 10^3/uL (4.0-10.5)
[2017-01-03] MEDS: PREGABALIN 75 MG CAPSULE PO SCH ×3 (05:17→22:02)
[2017-01-03 05:21] LABS: ANION GAP 8 (5-19); BLOOD UREA NITROGEN 27 mg/dL (7-20); CALCIUM 8.4 mg/dL (8.4-10.2); CARBON DIOXIDE 27 mmol/L (22-30); CHLORIDE 104 mmol/L (98-107); CREATININE RESULT 0.92 mg/dL (0.52-1.25); GLUCOSE 78 mg/dL (75-110); POTASSIUM 4.8 mmol/L (3.6-5.0); SODIUM 138.8 mmol/L (137-145)
[2017-01-03] MEDS: OXYCODONE-ACETAMINOPHEN 5-325 MG TABLET PO PRN ×3 (06:37→22:02)
[2017-01-03] MEDS: OXYCODONE HCL IR 5 MG TABLET PO PRN ×3 (06:37→22:02)
[2017-01-03] MEDS: LANSOPRAZOLE 30 MG TAB.RAP.DR PO SCH (07:31)
[2017-01-03] MEDS: MAGNESIUM HYDROXIDE SUSP 30 ML UDCUP PO PRN (07:47)
[2017-01-03] MEDS: ENOXAPARIN SODIUM INJ 40 MG/0.4 ML DISP.SYRIN SUBCUT SCH (10:09)
[2017-01-03] MEDS: BUDESONIDE/FORMOTEROL 160-4.5 MCG 60 PUFF/6 GM MDI IH SCH ×2 (10:10→22:02)
[2017-01-03] MEDS: TIOTROPIUM BROMIDE DPI 5 CAP/KIT (18 MCG/CAP) IH SCH (10:11)
[2017-01-03] MEDS: LOSARTAN POTASSIUM 50 MG TABLET PO SCH (10:11)
[2017-01-03] MEDS: CLONIDINE HCL 0.1 MG TABLET PO SCH ×2 (10:12→22:02)
[2017-01-03] MEDS: AMLODIPINE BESYLATE 5 MG TABLET PO SCH (10:13)
[2017-01-03] MEDS: FLUCONAZOLE 100 MG TABLET PO SCH (10:13)
[2017-01-03] MEDS: FERROUS SULFATE 325 MG TABLET PO SCH (10:13)
[2017-01-03] MEDS: DOCUSATE SODIUM 100 MG CAPSULE PO SCH ×2 (10:13→17:45)
[2017-01-03] MEDS: CITALOPRAM HYDROBROMIDE 20 MG TABLET PO SCH (10:13)
[2017-01-03] MEDS: CLONAZEPAM 1 MG TABLET PO PRN (14:11)
[2017-01-03] MEDS: IPRATROPIUM/ALBUTEROL 0.5-2.5 MG/3 ML AMPUL NEB PRN (14:25)
[2017-01-03] MEDS: ALBUTEROL SULFATE HFA (90 MCG/PUFF) 200 PUFF/8.5 GM MDI IH PRN (17:00)
--- NOTE | 2017-01-03 17:13 | CONSULTATION REPORT E ---
Consultation Report NAME: HUNTER GRANADOS : 1945 AGE: 71Y DATE: 01/03/2017 ROOM: [id number] A TO: TONY FREIRE M.D. FROM: NATACHA ENGLAND M.D. Requesting Physician REASON FOR CONSULTATION: L2 new vertebral compression fracture. HISTORY OF PRESENT ILLNESS: Patient well known to our service, previously treated with kyphoplasty at L3-4 had presented for admission on 12/31 with a longstanding history of chronic respiratory failure, lung cancer, and concern for chronic low back pain, with status post multiple kyphoplasties. She was transferred to [facility] for shortness of breath and found to be hypoxic in hypercarbic respiratory failure. She was started on steroids and on antibiotics for presumed possible pneumonia versus COPD exacerbation. She had end-stage COPD and she has had multiple episodes of exacerbation and decompensations. 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 She denies any specific trauma, but notes chronic back pain that suddenly increased over the last few days and similar to previous episodes of deep axial stabbing pain in her lower back, as she had with prior compression fractures. In the ER, she had an MRI of the lumbar spine confirming new acute L2 compression fracture. PAST MEDICAL HISTORY: Of note: 1. As noted above, COPD. 2. Pneumonia history. 3. GERD. 4. Hypertension. 5. Arthritis. 6. Depression. 7. Prior osteoporotic compression fractures. 8. Prior concern for pathologic fracture. 9. Lung cancer. 10. History of MRSA. PAST SURGICAL HISTORY: 1. Kyphoplasty as noted. 2. Appendectomy. 3. Cholecystectomy. 4. Hysterectomy. SOCIAL HISTORY: Former smoker. Denies illicits. FAMILY HISTORY: Noncontributory. MEDICATION LIST: Please see MAR. Of note, she has been on: Oxycodone 10 mg p.o. q. 6 hours, pregabalin, and Lyrica 75 mg p.o. q. 8 hours as pain medication. She is currently receiving p.r.n. dosing given her respiratory status. ALLERGIES: PENICILLINS - causing hives. REVIEW OF SYSTEMS: Otherwise unchanged from history and physical dictated by primary on 12/31 and reviewed with patient. PHYSICAL EXAMINATION: GENERAL: Patient anxious. HEAD: Normocephalic, atraumatic. RESPIRATORY: Nasal cannula at [address] Bilateral wheezing present. Coarse breath sounds. CARDIOVASCULAR: Regular rate and rhythm. Normal S1, S2. Pulses full throughout, 2+. Vascular exam: Normal capillary refill. ABDOMEN: Soft and nontender. NEUROLOGIC: Awake, alert, and oriented to person, place, and time. Cranial nerves 2-12 intact. Moving all extremities x4. Pain with rolling or attempting to sit up. SPINE: Tender to palpation in the upper lumbar spine. Mild pain and tenderness in the lateral paravertebral muscles. PSYCHIATRIC: Anxious. Appropriate affect. Normal mood. DIAGNOSTIC DATA: Of note, labs: White count remains elevated. Lab results grew back pseudomonas, remains on Levaquin. 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 ASSESSMENT: New L2 compression fracture in the setting of lung cancer diagnosis, COPD exacerbation versus pneumonia. PLAN: 1. I have discussed with Dr. England her candidacy for possible kyphoplasty and discussed with the patient. She will need to complete her antibiotic course and we will attempt to improve her respiratory status prior to consideration for kyphoplasty. She is due to complete a 10-day course of Levaquin and we will revisit consideration for kyphoplasty at that time. 2. She will continue minimal opioids prn given tenuous respiratory status. Continue her oxycodone at current dosing, and we have discussed consideration for Lidoderm patches to her lower back. She will continue her Lyrica as well. 3. We discussed a TLSO brace as we have in the past. She declines at this time. She can be fitted through Physical Therapy if she decides she would like to give it a try for this fracture. We will continue to follow along if necessary and thank you for this consult. DICTATING PHYSICIAN: TONY FREIRE M.D. [id number] PHY#: [id number] ID: [id number] JOB#: [id number] ACCT: [id number] cc:TONY FREIRE M.D. > [facility]
--- NOTE | 2017-01-03 18:48 | PDOC PROGRESS REPORT ---
Subjective Progress Note for:: 01/03/17 Subjective:: She continues to complain of pain in the low back, she was seen by pain specialist today, she may need kyphoplasty for the acute supportive fracture of the lumbar bone. She will continue antibiotic for acute COPD, she probably have infection though chest x-ray was negative for pneumonia Physical Exam Vital Signs: Temp Pulse Resp BP Pulse Ox 97.7 F 98 18 106/54 L 93 01/03/17 15:29 01/03/17 15:29 01/03/17 15:29 01/03/17 15:29 01/03/17 18:10 Intake & Output 01/02/17 01/03/17 01/04/17 06:59 06:59 06:59 Intake Total 3292 1663 954 Output Total 800 0 Balance 2492 1663 954 Weight 76 kg 76.1 kg General appearance: PRESENT: mild distress Eye exam: PRESENT: PERRLA Respiratory exam: PRESENT: rhonchi Cardiovascular exam: PRESENT: +S1, +S2 GI/Abdominal exam: PRESENT: soft Neurological exam: PRESENT: alert Results Laboratory Results: 01/03/17 04:41 01/03/17 04:41 01/03/17 01/03/17 04:41 04:41 WBC 13.2 H RBC 3.27 L Hgb 9.5 L Hct 28.6 L MCV 88 MCH 29.1 MCHC 33.3 RDW 19.9 H Plt Count 257 Seg Neutrophils % 80.7 H Lymphocytes % 12.7 L Monocytes % 5.5 Eosinophils % 0.8 Basophils % 0.3 Absolute Neutrophils 10.7 H Absolute Lymphocytes 1.7 Absolute Monocytes 0.7 Absolute Eosinophils 0.1 Absolute Basophils 0.0 Sodium 138.8 Potassium 4.8 Chloride 104 Carbon Dioxide 27 Anion Gap 8 BUN 27 H Creatinine 0.92 Est GFR ( Amer) > 60 Est GFR (Non-Af Amer) > 60 Glucose 78 Calcium 8.4 12/31/16 12/31/16 12/31/16 09:00 09:00 09:00 Creatine Kinase 36 Troponin I 0.060 NT-Pro-B Natriuret Pep 4290 H 12/31/16 12/31/16 12/31/16 15:22 15:22 21:30 Creatine Kinase 35 29 L Troponin I 0.026 NT-Pro-B Natriuret Pep 12/31/16 21:30 Creatine Kinase Troponin I 0.021 NT-Pro-B Natriuret Pep Impressions: Chest X-Ray 12/31/16 04:11 IMPRESSION: No significant interval change. Lumbar Spine MRI 01/01/17 17:26 IMPRESSION: Acute anterior wedge compression fracture L2 involving the anterior 2/3 of vertebral body with approximately 20% loss of height. No extension into the pedicles. Old treated and untreated compression fractures Multilevel lumbar spondylosis. Most severe finding at L4-5 with marked exit foraminal stenosis and marked central canal stenosis. Assessment & Plan - Diagnosis (1) Acute and chronic respiratory failure ([id number]) Qualifiers: Respiratory failure complication: hypoxia and hypercapnia Qualified Code(s) : J96.21 - Acute and chronic respiratory failure with hypoxia; J96.22 - Acute and chronic respiratory failure with hypercapnia Is this a current diagnosis for this admission?: Yes (2) End stage COPD Is this a current diagnosis for this admission?: Yes (3) Compression fracture of thoracic vertebra, non-traumatic Qualifiers: Encounter type: subsequent encounter Fracture healing: with routine healing Is this a current diagnosis for this admission?: Yes (4) 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
[2017-01-03] MEDS: MIRTAZAPINE 15 MG TABLET PO SCH (22:01)
[2017-01-03] MEDS: CETIRIZINE 5 MG TABLET PO SCH (22:02)
[2017-01-03] MEDS: ATORVASTATIN CALCIUM 10 MG TABLET PO SCH (22:02)
[2017-01-04] MEDS: PREGABALIN 75 MG CAPSULE PO SCH ×3 (06:52→22:40)
[2017-01-04] MEDS: LEVOFLOXACIN 750 MG/D5W RTU 750 MG/150 ML RTUPB IV SCH (06:52)
[2017-01-04] MEDS: OXYCODONE-ACETAMINOPHEN 5-325 MG TABLET PO PRN ×2 (06:53→15:36)
[2017-01-04] MEDS: OXYCODONE HCL IR 5 MG TABLET PO PRN ×2 (06:53→15:36)
[2017-01-04] MEDS: LOSARTAN POTASSIUM 50 MG TABLET PO SCH (09:21)
[2017-01-04] MEDS: CITALOPRAM HYDROBROMIDE 20 MG TABLET PO SCH (09:22)
[2017-01-04] MEDS: DOCUSATE SODIUM 100 MG CAPSULE PO SCH ×2 (09:22→18:44)
[2017-01-04] MEDS: CLONIDINE HCL 0.1 MG TABLET PO SCH ×2 (09:22→22:49)
[2017-01-04] MEDS: ENOXAPARIN SODIUM INJ 40 MG/0.4 ML DISP.SYRIN SUBCUT SCH (09:22)
[2017-01-04] MEDS: AMLODIPINE BESYLATE 5 MG TABLET PO SCH (09:22)
[2017-01-04] MEDS: LANSOPRAZOLE 30 MG TAB.RAP.DR PO SCH (09:22)
[2017-01-04] MEDS: FERROUS SULFATE 325 MG TABLET PO SCH (09:22)
[2017-01-04] MEDS: BUDESONIDE/FORMOTEROL 160-4.5 MCG 60 PUFF/6 GM MDI IH SCH ×2 (09:23→22:39)
[2017-01-04] MEDS: CLONAZEPAM 1 MG TABLET PO PRN (09:23)
[2017-01-04] MEDS: TIOTROPIUM BROMIDE DPI 5 CAP/KIT (18 MCG/CAP) IH SCH (09:23)
--- NOTE | 2017-01-04 10:06 | PDOC PROGRESS REPORT ---
Subjective Progress Note for:: 01/04/17 Subjective:: pt is doing well denied any chest pain no sob pt seen by pain mx fpr compression fx and possible kypoplasty Physical Exam Vital Signs: Temp Pulse Resp BP Pulse Ox 98.6 F 82 18 105/50 L 98 01/04/17 07:08 01/04/17 07:08 01/04/17 07:08 01/04/17 07:08 01/04/17 07:08 Intake & Output 01/03/17 01/04/17 01/05/17 06:59 06:59 06:59 Intake Total 1663 1154 Output Total 0 Balance 1663 1154 Weight 76.1 kg 74 kg General appearance: PRESENT: no acute distress, well-developed, well-nourished Head exam: PRESENT: atraumatic, normocephalic Eye exam: PRESENT: conjunctiva pink, EOMI, PERRLA. ABSENT: scleral icterus Ear exam: PRESENT: normal external ear exam Mouth exam: PRESENT: moist, tongue midline Neck exam: PRESENT: full ROM. ABSENT: carotid bruit, JVD, lymphadenopathy, thyromegaly Respiratory exam: PRESENT: wheezes Cardiovascular exam: PRESENT: RRR. ABSENT: diastolic murmur, rubs, systolic murmur Pulses: PRESENT: normal dorsalis pedis pul, +2 pedal pulses bilateral Vascular exam: PRESENT: normal capillary refill GI/Abdominal exam: PRESENT: normal bowel sounds, soft. ABSENT: distended, guarding, mass, organolmegaly, rebound, tenderness Rectal exam: PRESENT: deferred Neurological exam: PRESENT: alert, awake, oriented to person, oriented to place , oriented to time, oriented to situation, CN II-XII grossly intact. ABSENT: motor sensory deficit Psychiatric exam: PRESENT: appropriate affect, normal mood. ABSENT: homicidal ideation, suicidal ideation Skin exam: PRESENT: dry, intact, warm. ABSENT: cyanosis, rash Results Laboratory Results: 01/03/17 04:41 01/03/17 04:41 12/31/16 12/31/16 12/31/16 09:00 09:00 09:00 Creatine Kinase 36 Troponin I 0.060 NT-Pro-B Natriuret Pep 4290 H 12/31/16 12/31/16 12/31/16 15:22 15:22 21:30 Creatine Kinase 35 29 L Troponin I 0.026 NT-Pro-B Natriuret Pep 12/31/16 21:30 Creatine Kinase Troponin I 0.021 NT-Pro-B Natriuret Pep Impressions: Chest X-Ray 12/31/16 04:11 IMPRESSION: No significant interval change. Lumbar Spine MRI 01/01/17 17:26 IMPRESSION: Acute anterior wedge compression fracture L2 involving the anterior 2/3 of vertebral body with approximately 20% loss of height. No extension into the pedicles. Old treated and untreated compression fractures Multilevel lumbar spondylosis. Most severe finding at L4-5 with marked exit foraminal stenosis and marked central canal stenosis. Assessment & Plan - Diagnosis (1) Acute and chronic respiratory failure ([id number]) Qualifiers: Respiratory failure complication: hypoxia and hypercapnia Qualified Code(s) : J96.21 - Acute and chronic respiratory failure with hypoxia; J96.22 - Acute and chronic respiratory failure with hypercapnia Is this a current diagnosis for this admission?: Yes (2) End stage COPD Is this a current diagnosis for this admission?: Yes (3) Compression fracture of thoracic vertebra, non-traumatic Qualifiers: Encounter type: subsequent encounter Fracture healing: with routine healing Is this a current diagnosis for this admission?: Yes (4) Squamous cell lung cancer Qualifiers: Laterality: left Qualified Code(s): C34.92 - Malignant neoplasm of unspecified part of left bronchus or lung (5) GERD (gastroesophageal reflux disease) Qualifiers: Esophagitis presence: with esophagitis Qualified Code(s): K21.0 - Gastro- esophageal reflux disease with esophagitis - Time Time Spent with patient: 15-24 minutes Medications reviewed and adjusted accordingly: Yes Within: Other - Inpatient Certification Medical Necessity: Need Close Monitoring Due to Risk of Patient Decompensation, Need for IV Antibiotics 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
[2017-01-04] MEDS: IPRATROPIUM/ALBUTEROL 0.5-2.5 MG/3 ML AMPUL NEB PRN (15:26)
[2017-01-04] MEDS ORDERED: LORAZEPAM INJ 2 MG/1 ML VIAL ONE (16:22)
[2017-01-04] MEDS ORDERED: LORAZEPAM INJ 2 MG/1 ML VIAL IV ONE (17:30)
[2017-01-04] MEDS: ATORVASTATIN CALCIUM 10 MG TABLET PO SCH (22:38)
[2017-01-04] MEDS: MIRTAZAPINE 15 MG TABLET PO SCH (22:40)
[2017-01-04] MEDS: CETIRIZINE 5 MG TABLET PO SCH (22:40)
[2017-01-05] MEDS: OXYCODONE HCL IR 5 MG TABLET PO PRN ×3 (04:56→20:40)
[2017-01-05] MEDS: OXYCODONE-ACETAMINOPHEN 5-325 MG TABLET PO PRN ×3 (04:57→20:40)
[2017-01-05] MEDS: CLONAZEPAM 1 MG TABLET PO PRN (04:59)
[2017-01-05] MEDS: PREGABALIN 75 MG CAPSULE PO SCH ×3 (05:02→21:34)
[2017-01-05] MEDS: IPRATROPIUM/ALBUTEROL 0.5-2.5 MG/3 ML AMPUL NEB PRN ×3 (05:10→21:10)
[2017-01-05] MEDS ORDERED: NORMAL SALINE 250 ML IV PRN (09:30)
[2017-01-05] MEDS: CLONIDINE HCL 0.1 MG TABLET PO SCH ×2 (09:48→21:34)
[2017-01-05] MEDS: LOSARTAN POTASSIUM 50 MG TABLET PO SCH (09:48)
[2017-01-05] MEDS: AMLODIPINE BESYLATE 5 MG TABLET PO SCH (09:48)
[2017-01-05] MEDS: CITALOPRAM HYDROBROMIDE 20 MG TABLET PO SCH (10:25)
[2017-01-05] MEDS: FERROUS SULFATE 325 MG TABLET PO SCH (10:25)
[2017-01-05] MEDS: DOCUSATE SODIUM 100 MG CAPSULE PO SCH ×2 (10:25→18:53)
[2017-01-05] MEDS: LANSOPRAZOLE 30 MG TAB.RAP.DR PO SCH (10:26)
[2017-01-05] MEDS: BUDESONIDE/FORMOTEROL 160-4.5 MCG 60 PUFF/6 GM MDI IH SCH ×2 (10:27→21:35)
[2017-01-05] MEDS: ENOXAPARIN SODIUM INJ 40 MG/0.4 ML DISP.SYRIN SUBCUT SCH (10:27)
[2017-01-05] MEDS: TIOTROPIUM BROMIDE DPI 5 CAP/KIT (18 MCG/CAP) IH SCH (10:27)
[2017-01-05] MEDS ORDERED: CLONAZEPAM 1 MG TABLET PO PRN (13:34)
--- NOTE | 2017-01-05 13:34 | PDOC PROGRESS REPORT ---
Subjective Progress Note for:: 01/05/17 Subjective:: Patient have a panic attack yesterday and was feeling short of breath was given 1 dose of Ativan and he helps to reduce all the symptoms She is currently on the BiPAP Since denied any chest pain denied any distressed Anxiety issue Patient also seen by the pain management for evaluations for the kyphoplasty Physical Exam Vital Signs: Temp Pulse Resp BP Pulse Ox 97.7 F 96 24 H 93/52 L 94 01/05/17 07:43 01/05/17 07:43 01/05/17 12:02 01/05/17 07:43 01/05/17 07:43 Intake & Output 01/04/17 01/05/17 01/06/17 06:59 06:59 06:59 Intake Total 1154 403 Balance 1154 403 Weight 74 kg 75.3 kg General appearance: PRESENT: no acute distress Head exam: PRESENT: normocephalic Eye exam: PRESENT: PERRLA Mouth exam: PRESENT: dry mucosa Respiratory exam: PRESENT: decreased breath sounds Cardiovascular exam: PRESENT: +S1, +S2 GI/Abdominal exam: PRESENT: normal bowel sounds, soft Extremities exam: ABSENT: pedal edema Neurological exam: PRESENT: alert, awake, oriented to person, oriented to place Psychiatric exam: PRESENT: anxious Skin exam: PRESENT: dry Results Laboratory Results: 01/03/17 04:41 01/03/17 04:41 12/31/16 09:56 Blood Blood Culture - Final NO GROWTH IN 5 DAYS 12/31/16 09:00 Blood Blood Culture - Final NO GROWTH IN 5 DAYS 12/31/16 12/31/16 12/31/16 09:00 09:00 09:00 Creatine Kinase 36 Troponin I 0.060 NT-Pro-B Natriuret Pep 4290 H 12/31/16 12/31/16 12/31/16 15:22 15:22 21:30 Creatine Kinase 35 29 L Troponin I 0.026 NT-Pro-B Natriuret Pep 12/31/16 21:30 Creatine Kinase Troponin I 0.021 NT-Pro-B Natriuret Pep Impressions: Chest X-Ray 12/31/16 04:11 IMPRESSION: No significant interval change. Lumbar Spine MRI 01/01/17 17:26 IMPRESSION: Acute anterior wedge compression fracture L2 involving the anterior 2/3 of vertebral body with approximately 20% loss of height. No extension into the pedicles. Old treated and untreated compression fractures Multilevel lumbar spondylosis. Most severe finding at L4-5 with marked exit foraminal stenosis and marked central canal stenosis. Assessment & Plan - Diagnosis (1) Acute and chronic respiratory failure ([id number]-[id number]-[id number]) Qualifiers: Respiratory failure complication: hypoxia and hypercapnia Qualified Code(s) : J96.21 - Acute and chronic respiratory failure with hypoxia; J96.22 - Acute and chronic respiratory failure with hypercapnia Is this a current diagnosis for this admission?: Yes Plan: We will get the ABG and the chest x-ray today continues to BiPAP (2) End stage COPD Is this a current diagnosis for this admission?: Yes Plan: Continues to current medications (3) Compression fracture of thoracic vertebra, non-traumatic Qualifiers: Encounter type: subsequent encounter Fracture healing: with routine healing Is this a current diagnosis for this admission?: Yes Plan: With the pain management (4) Squamous cell lung cancer Qualifiers: Laterality: left Qualified Code(s): C34.92 - Malignant neoplasm of unspecified part of left bronchus or lung Is this a current diagnosis for this admission?: Yes (5) GERD (gastroesophageal reflux disease) Qualifiers: Esophagitis presence: with esophagitis Qualified Code(s): K21.0 - Gastro- esophageal reflux disease with esophagitis Is this a current diagnosis for this admission?: Yes (6) Anxiety Is this a current diagnosis for this admission?: Yes Plan: Increase the Klonopin 3 times a day - Time Time Spent with patient: 15-24 minutes Medications reviewed and adjusted accordingly: Yes Anticipated discharge: Other Within: Other - Inpatient Certification Medical Necessity: Need Close Monitoring Due to Risk of Patient Decompensation 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
[2017-01-05 13:59] LABS: ARTERIAL BLOOD BASE EXCESS 2.5 mmol/L
--- NOTE | 2017-01-05 14:35 | RADIOLOGY REPORT (SQ) ---
EXAM DESCRIPTION: CHEST SINGLE VIEW COMPLETED DATE/TIME: 01/05/2017 2:07 pm REASON FOR STUDY: sob COMPARISON: 12/31/2016 EXAM PARAMETERS: NUMBER OF VIEWS: One view. TECHNIQUE: Single frontal radiographic view of the chest acquired. RADIATION DOSE: NA LIMITATIONS: None. FINDINGS: LUNGS AND PLEURA: The previously described mixed interstitial and alveolar opacities in th e right lower lung field show interval progression with increasing confluence. Remaining lung gordon are clear. MEDIASTINUM AND HILAR STRUCTURES: No masses. Contour normal. HEART AND VASCULAR STRUCTURES: Heart normal in size. Normal vasculature. BONES: No acute findings. HARDWARE: Scattered surgical clips are again identified. OTHER: No other significant finding. IMPRESSION: Interval progression in the previously described mixed interstitial and alveolar opaciti es in the right lower lung field with increasing confluence. Other findings as noted above TECHNICAL DOCUMENTATION: JOB ID: [id number]
[2017-01-05] MEDS: CETIRIZINE 5 MG TABLET PO SCH (21:35)
[2017-01-05] MEDS: ATORVASTATIN CALCIUM 10 MG TABLET PO SCH (21:35)
[2017-01-05] MEDS: MIRTAZAPINE 15 MG TABLET PO SCH (21:35)
[2017-01-06] MEDS: LEVOFLOXACIN 750 MG/D5W RTU 750 MG/150 ML RTUPB IV SCH (05:28)
[2017-01-06] MEDS: PREGABALIN 75 MG CAPSULE PO SCH ×3 (05:28→21:53)
[2017-01-06] MEDS: ALBUTEROL SULFATE HFA (90 MCG/PUFF) 200 PUFF/8.5 GM MDI IH PRN (07:39)
[2017-01-06 08:00] LABS: HEMATOCRIT 32.3 % (36.0-47.0); HEMOGLOBIN 10.7 g/dL (12.0-15.5); HGB HCT DIFFERENCE -0.2; MEAN CORPUSCULAR HEMOGLOBIN 29.1 pg (27.0-33.4); MEAN CORPUSCULAR HGB CONC 33.1 g/dL (32.0-36.0); MEAN CORPUSCULAR VOLUME 88 fl (80-97); RED BLOOD COUNT 3.67 10^6/uL (3.72-5.28); RED CELL DISTRIBUTION WIDTH 19.1 % (11.5-14.0); WHITE BLOOD COUNT 14.9 10^3/uL (4.0-10.5)
[2017-01-06 08:03] LABS: ANION GAP 15 (5-19); BLOOD UREA NITROGEN 25 mg/dL (7-20); CALCIUM 9.1 mg/dL (8.4-10.2); CARBON DIOXIDE 25 mmol/L (22-30); CHLORIDE 104 mmol/L (98-107); CREATININE RESULT 0.85 mg/dL (0.52-1.25); GLUCOSE 48 mg/dL (75-110); POTASSIUM 4.4 mmol/L (3.6-5.0); SODIUM 143.6 mmol/L (137-145)
[2017-01-06 08:06] LABS: BAND NEUTROPHILS % (MANUAL) 3 % (3-5); BASOPHILS % (MANUAL) 0 % (0-2); EOSINOPHILS % (MANUAL) 0 % (0-6); LYMPHOCYTES % (MANUAL) 10 % (13-45); TOTAL CELLS COUNTED 100
[2017-01-06 08:08] LABS: ANISOCYTOSIS 2+; TOXIC GRANULATION 1+
[2017-01-06] MEDS: LANSOPRAZOLE 30 MG TAB.RAP.DR PO SCH (08:55)
[2017-01-06] MEDS: OXYCODONE HCL IR 5 MG TABLET PO PRN ×3 (08:55→21:53)
[2017-01-06] MEDS: OXYCODONE-ACETAMINOPHEN 5-325 MG TABLET PO PRN ×3 (08:56→21:53)
[2017-01-06] MEDS: ENOXAPARIN SODIUM INJ 40 MG/0.4 ML DISP.SYRIN SUBCUT SCH (11:01)
[2017-01-06] MEDS: BUDESONIDE/FORMOTEROL 160-4.5 MCG 60 PUFF/6 GM MDI IH SCH ×2 (11:02→21:54)
[2017-01-06] MEDS: CITALOPRAM HYDROBROMIDE 20 MG TABLET PO SCH (11:03)
[2017-01-06] MEDS: DOCUSATE SODIUM 100 MG CAPSULE PO SCH ×2 (11:04→17:58)
[2017-01-06] MEDS: FERROUS SULFATE 325 MG TABLET PO SCH (11:05)
[2017-01-06] MEDS: TIOTROPIUM BROMIDE DPI 5 CAP/KIT (18 MCG/CAP) IH SCH (11:05)
[2017-01-06] MEDS: CLONIDINE HCL 0.1 MG TABLET PO SCH ×2 (11:10→21:55)
[2017-01-06] MEDS: IPRATROPIUM/ALBUTEROL 0.5-2.5 MG/3 ML AMPUL NEB PRN (21:02)
--- NOTE | 2017-01-06 21:34 | PDOC PROGRESS REPORT ---
Subjective Progress Note for:: 01/06/17 Subjective:: She was seen by the bedside today, on IV antibiotic state,still complain of pain of the back Physical Exam Vital Signs: Temp Pulse Resp BP Pulse Ox 97.6 F 98 21 H 119/62 93 01/06/17 16:07 01/06/17 19:00 01/06/17 16:37 01/06/17 16:07 01/06/17 16:37 Intake & Output 01/05/17 01/06/17 01/07/17 06:59 06:59 06:59 Intake Total 403 570 500 Balance 403 570 500 Weight 75.3 kg 75.1 kg 75.1 kg General appearance: PRESENT: severe distress Eye exam: PRESENT: PERRLA Respiratory exam: PRESENT: rhonchi Cardiovascular exam: PRESENT: +S1, +S2 GI/Abdominal exam: PRESENT: soft Neurological exam: PRESENT: alert Results Laboratory Results: 01/06/17 07:01 01/06/17 07:01 01/06/17 01/06/17 07:01 07:01 WBC 14.9 H RBC 3.67 L Hgb 10.7 L Hct 32.3 L MCV 88 MCH 29.1 MCHC 33.1 RDW 19.1 H Plt Count 302 Seg Neutrophils % Not Reportable Lymphocytes % Not Reportable Monocytes % Not Reportable Eosinophils % Not Reportable Basophils % Not Reportable Absolute Neutrophils Not Reportable Absolute Lymphocytes Not Reportable Absolute Monocytes Not Reportable Absolute Eosinophils Not Reportable Absolute Basophils Not Reportable Sodium 143.6 Potassium 4.4 Chloride 104 Carbon Dioxide 25 Anion Gap 15 BUN 25 H Creatinine 0.85 Est GFR ( Amer) > 60 Est GFR (Non-Af Amer) > 60 Glucose 48 L Calcium 9.1 12/31/16 12/31/16 12/31/16 09:00 09:00 09:00 Creatine Kinase 36 Troponin I 0.060 NT-Pro-B Natriuret Pep 4290 H 12/31/16 12/31/16 12/31/16 15:22 15:22 21:30 Creatine Kinase 35 29 L Troponin I 0.026 NT-Pro-B Natriuret Pep 12/31/16 21:30 Creatine Kinase Troponin I 0.021 NT-Pro-B Natriuret Pep Impressions: Lumbar Spine MRI 01/01/17 17:26 IMPRESSION: Acute anterior wedge compression fracture L2 involving the anterior 2/3 of vertebral body with approximately 20% loss of height. No extension into the pedicles. Old treated and untreated compression fractures Multilevel lumbar spondylosis. Most severe finding at L4-5 with marked exit foraminal stenosis and marked central canal stenosis. Chest X-Ray 01/05/17 00:00 IMPRESSION: Interval progression in the previously described mixed interstitial and alveolar opacities in the right lower lung field with increasing confluence. Other findings as noted above Assessment & Plan - Diagnosis (1) Compression fracture of thoracic vertebra, non-traumatic Qualifiers: Encounter type: subsequent encounter Fracture healing: with routine healing Is this a current diagnosis for this admission?: Yes (2) Malignant neoplasm metastatic to left lung Is this a current diagnosis for this admission?: Yes (3) Acute and chronic respiratory failure ([id number]) Qualifiers: Respiratory failure complication: hypoxia and hypercapnia Qualified Code(s) : J96.21 - Acute and chronic respiratory failure with hypoxia; J96.22 - Acute and chronic respiratory failure with hypercapnia Is this a current diagnosis for this admission?: Yes (4) End stage COPD Is this a current diagnosis for this admission?: Yes (5) Osteoporotic compression fracture of spine Qualifiers: Encounter type: subsequent encounter Fracture healing: with routine healing Qualified Code(s): M80.88XD - Other osteoporosis with current pathological fracture, vertebra(e), subsequent encounter for fracture with routine healing Is this a current diagnosis for this admission?: Yes
[2017-01-06] MEDS: ATORVASTATIN CALCIUM 10 MG TABLET PO SCH (21:53)
[2017-01-06] MEDS: MIRTAZAPINE 15 MG TABLET PO SCH (21:54)
[2017-01-06] MEDS: CETIRIZINE 5 MG TABLET PO SCH (21:55)
[2017-01-07] MEDS: OXYCODONE-ACETAMINOPHEN 5-325 MG TABLET PO PRN ×3 (05:42→21:00)
[2017-01-07] MEDS: PREGABALIN 75 MG CAPSULE PO SCH ×3 (05:42→21:01)
[2017-01-07] MEDS: OXYCODONE HCL IR 5 MG TABLET PO PRN ×3 (05:42→21:00)
[2017-01-07 06:45] LABS: ANION GAP 8 (5-19); BLOOD UREA NITROGEN 19 mg/dL (7-20); CALCIUM 8.7 mg/dL (8.4-10.2); CARBON DIOXIDE 28 mmol/L (22-30); CHLORIDE 106 mmol/L (98-107); CREATININE RESULT 0.95 mg/dL (0.52-1.25); GLUCOSE 83 mg/dL (75-110)
[2017-01-07] MEDS: IPRATROPIUM/ALBUTEROL 0.5-2.5 MG/3 ML AMPUL NEB PRN (07:52)
[2017-01-07] MEDS: LANSOPRAZOLE 30 MG TAB.RAP.DR PO SCH (08:24)
[2017-01-07] MEDS: BUDESONIDE/FORMOTEROL 160-4.5 MCG 60 PUFF/6 GM MDI IH SCH ×2 (10:21→21:02)
[2017-01-07] MEDS: ENOXAPARIN SODIUM INJ 40 MG/0.4 ML DISP.SYRIN SUBCUT SCH (10:21)
[2017-01-07] MEDS: CITALOPRAM HYDROBROMIDE 20 MG TABLET PO SCH (10:21)
[2017-01-07] MEDS: DOCUSATE SODIUM 100 MG CAPSULE PO SCH ×2 (10:22→18:20)
[2017-01-07] MEDS: FERROUS SULFATE 325 MG TABLET PO SCH (10:22)
[2017-01-07] MEDS: CLONIDINE HCL 0.1 MG TABLET PO SCH ×2 (10:29→21:01)
[2017-01-07] MEDS: TIOTROPIUM BROMIDE DPI 5 CAP/KIT (18 MCG/CAP) IH SCH (10:29)
[2017-01-07] MEDS: ATORVASTATIN CALCIUM 10 MG TABLET PO SCH (21:01)
[2017-01-07] MEDS: MIRTAZAPINE 15 MG TABLET PO SCH (21:02)
[2017-01-07] MEDS: CETIRIZINE 5 MG TABLET PO SCH (21:03)
[2017-01-07] MEDS: BACITRACIN ZINC OINTMENT 15 GM TP SCH (21:03)
--- NOTE | 2017-01-07 21:27 | PDOC PROGRESS REPORT ---
Subjective Progress Note for:: 01/07/17 Subjective:: Patient was seen by the bedside, she has less back pain compared to previous days, the plan is for patient to have kyphoplasty of the lumbar spine. The pain specialist wants to have antibiotic for a total of 10 days before the kyphoplasty is done. Physical Exam Vital Signs: Temp Pulse Resp BP Pulse Ox 98.9 F 100 14 134/63 H 97 01/07/17 19:52 01/07/17 19:52 01/07/17 19:52 01/07/17 19:52 01/07/17 19:52 Intake & Output 01/06/17 01/07/17 01/08/17 06:59 06:59 06:59 Intake Total 570 520 970 Balance 570 520 970 Weight 75.1 kg 73.5 kg General appearance: PRESENT: mild distress Eye exam: PRESENT: PERRLA Respiratory exam: PRESENT: rhonchi Cardiovascular exam: PRESENT: +S1, +S2 GI/Abdominal exam: PRESENT: soft Neurological exam: PRESENT: alert Results Laboratory Results: 01/06/17 07:01 01/07/17 06:05 01/07/17 06:05 Sodium 142.0 Potassium 4.0 Chloride 106 Carbon Dioxide 28 Anion Gap 8 BUN 19 Creatinine 0.95 Est GFR ( Amer) > 60 Est GFR (Non-Af Amer) 58 L Glucose 83 Calcium 8.7 12/31/16 12/31/16 12/31/16 09:00 09:00 09:00 Creatine Kinase 36 Troponin I 0.060 NT-Pro-B Natriuret Pep 4290 H 12/31/16 12/31/16 12/31/16 15:22 15:22 21:30 Creatine Kinase 35 29 L Troponin I 0.026 NT-Pro-B Natriuret Pep 12/31/16 21:30 Creatine Kinase Troponin I 0.021 NT-Pro-B Natriuret Pep Impressions: Lumbar Spine MRI 01/01/17 17:26 IMPRESSION: Acute anterior wedge compression fracture L2 involving the anterior 2/3 of vertebral body with approximately 20% loss of height. No extension into the pedicles. Old treated and untreated compression fractures Multilevel lumbar spondylosis. Most severe finding at L4-5 with marked exit foraminal stenosis and marked central canal stenosis. Chest X-Ray 01/05/17 00:00 IMPRESSION: Interval progression in the previously described mixed interstitial and alveolar opacities in the right lower lung field with increasing confluence. Other findings as noted above Assessment & Plan - Diagnosis (1) Compression fracture of thoracic vertebra, non-traumatic Qualifiers: Encounter type: subsequent encounter Fracture healing: with routine healing Is this a current diagnosis for this admission?: Yes (2) Malignant neoplasm metastatic to left lung Is this a current diagnosis for this admission?: Yes (3) Acute and chronic respiratory failure ([id number]) Qualifiers: Respiratory failure complication: hypoxia and hypercapnia Qualified Code(s) : J96.21 - Acute and chronic respiratory failure with hypoxia; J96.22 - Acute and chronic respiratory failure with hypercapnia Is this a current diagnosis for this admission?: Yes (4) End stage COPD Is this a current diagnosis for this admission?: Yes (5) Osteoporotic compression fracture of spine Qualifiers: Encounter type: subsequent encounter Fracture healing: with routine healing Qualified Code(s): M80.88XD - Other osteoporosis with current pathological fracture, vertebra(e), subsequent encounter for fracture with routine healing Is this a current diagnosis for this admission?: Yes
[2017-01-08] MEDS: PREGABALIN 75 MG CAPSULE PO SCH ×3 (05:26→21:53)
[2017-01-08] MEDS: LEVOFLOXACIN 750 MG/D5W RTU 750 MG/150 ML RTUPB IV SCH (05:27)
[2017-01-08 05:46] LABS: ANION GAP 7 (5-19); BLOOD UREA NITROGEN 18 mg/dL (7-20); CALCIUM 8.8 mg/dL (8.4-10.2); CARBON DIOXIDE 28 mmol/L (22-30); CHLORIDE 107 mmol/L (98-107); CREATININE RESULT 0.88 mg/dL (0.52-1.25); GLUCOSE 93 mg/dL (75-110)
[2017-01-08] MEDS: IPRATROPIUM/ALBUTEROL 0.5-2.5 MG/3 ML AMPUL NEB PRN (07:51)
[2017-01-08] MEDS: DOCUSATE SODIUM 100 MG CAPSULE PO SCH ×2 (10:00→18:16)
[2017-01-08] MEDS: LANSOPRAZOLE 30 MG TAB.RAP.DR PO SCH (10:00)
[2017-01-08] MEDS: CITALOPRAM HYDROBROMIDE 20 MG TABLET PO SCH (10:01)
[2017-01-08] MEDS: FERROUS SULFATE 325 MG TABLET PO SCH (10:01)
[2017-01-08] MEDS: CLONIDINE HCL 0.1 MG TABLET PO SCH ×2 (10:01→21:52)
[2017-01-08] MEDS: ENOXAPARIN SODIUM INJ 40 MG/0.4 ML DISP.SYRIN SUBCUT SCH (10:02)
[2017-01-08] MEDS: BACITRACIN ZINC OINTMENT 15 GM TP SCH ×2 (10:04→21:54)
[2017-01-08] MEDS: BUDESONIDE/FORMOTEROL 160-4.5 MCG 60 PUFF/6 GM MDI IH SCH ×2 (10:05→21:53)
[2017-01-08] MEDS: TIOTROPIUM BROMIDE DPI 5 CAP/KIT (18 MCG/CAP) IH SCH (10:05)
[2017-01-08] MEDS: OXYCODONE HCL IR 5 MG TABLET PO PRN ×2 (12:01→18:16)
[2017-01-08] MEDS: OXYCODONE-ACETAMINOPHEN 5-325 MG TABLET PO PRN ×2 (12:01→18:16)
--- NOTE | 2017-01-08 17:08 | PDOC PROGRESS REPORT ---
Subjective Progress Note for:: 01/08/17 Subjective:: Patient was seen by the bedside, she has less back pain compared to previous days, the plan is for patient to have kyphoplasty of the lumbar spine. The pain specialist wants to have antibiotic for a total of 10 days before the kyphoplasty is done. Physical Exam Vital Signs: Temp Pulse Resp BP Pulse Ox 98.8 F 99 19 87/58 L 96 01/08/17 15:22 01/08/17 15:22 01/08/17 15:22 01/08/17 15:22 01/08/17 15:22 Intake & Output 01/07/17 01/08/17 01/09/17 06:59 06:59 06:59 Intake Total 520 1125 0 Output Total 2 Balance 520 1125 -2 Weight 73.5 kg 74.2 kg General appearance: PRESENT: mild distress Eye exam: PRESENT: PERRLA Respiratory exam: PRESENT: wheezes Cardiovascular exam: PRESENT: +S1, +S2 GI/Abdominal exam: PRESENT: tenderness Neurological exam: PRESENT: alert Results Laboratory Results: 01/06/17 07:01 01/08/17 05:21 01/08/17 05:21 Sodium 142.0 Potassium 4.0 Chloride 107 Carbon Dioxide 28 Anion Gap 7 BUN 18 Creatinine 0.88 Est GFR ( Amer) > 60 Est GFR (Non-Af Amer) > 60 Glucose 93 Calcium 8.8 12/31/16 12/31/16 12/31/16 09:00 09:00 09:00 Creatine Kinase 36 Troponin I 0.060 NT-Pro-B Natriuret Pep 4290 H 12/31/16 12/31/16 12/31/16 15:22 15:22 21:30 Creatine Kinase 35 29 L Troponin I 0.026 NT-Pro-B Natriuret Pep 12/31/16 21:30 Creatine Kinase Troponin I 0.021 NT-Pro-B Natriuret Pep Impressions: Lumbar Spine MRI 01/01/17 17:26 IMPRESSION: Acute anterior wedge compression fracture L2 involving the anterior 2/3 of vertebral body with approximately 20% loss of height. No extension into the pedicles. Old treated and untreated compression fractures Multilevel lumbar spondylosis. Most severe finding at L4-5 with marked exit foraminal stenosis and marked central canal stenosis. Chest X-Ray 01/05/17 00:00 IMPRESSION: Interval progression in the previously described mixed interstitial and alveolar opacities in the right lower lung field with increasing confluence. Other findings as noted above Assessment & Plan - Diagnosis (1) Compression fracture of thoracic vertebra, non-traumatic Qualifiers: Encounter type: subsequent encounter Fracture healing: with routine healing Is this a current diagnosis for this admission?: Yes (2) Malignant neoplasm metastatic to left lung Is this a current diagnosis for this admission?: Yes (3) Acute and chronic respiratory failure ([id number]) Qualifiers: Respiratory failure complication: hypoxia and hypercapnia Qualified Code(s) : J96.21 - Acute and chronic respiratory failure with hypoxia; J96.22 - Acute and chronic respiratory failure with hypercapnia Is this a current diagnosis for this admission?: Yes (4) End stage COPD Is this a current diagnosis for this admission?: Yes (5) Osteoporotic compression fracture of spine Qualifiers: Encounter type: subsequent encounter Fracture healing: with routine healing Qualified Code(s): M80.88XD - Other osteoporosis with current pathological fracture, vertebra(e), subsequent encounter for fracture with routine healing Is this a current diagnosis for this admission?: Yes
[2017-01-08] MEDS: CETIRIZINE 5 MG TABLET PO SCH (21:53)
[2017-01-08] MEDS: ATORVASTATIN CALCIUM 10 MG TABLET PO SCH (21:54)
[2017-01-08] MEDS: MIRTAZAPINE 15 MG TABLET PO SCH (21:54)
[2017-01-08] MEDS: BISACODYL 10 MG SUPP.RECT PR PRN (21:54)
[2017-01-09] MEDS: PREGABALIN 75 MG CAPSULE PO SCH ×3 (05:11→22:08)
[2017-01-09] MEDS: ENOXAPARIN SODIUM INJ 40 MG/0.4 ML DISP.SYRIN SUBCUT SCH (10:29)
[2017-01-09] MEDS: BACITRACIN ZINC OINTMENT 15 GM TP SCH ×2 (10:31→22:07)
[2017-01-09] MEDS: TIOTROPIUM BROMIDE DPI 5 CAP/KIT (18 MCG/CAP) IH SCH (10:31)
[2017-01-09] MEDS: BUDESONIDE/FORMOTEROL 160-4.5 MCG 60 PUFF/6 GM MDI IH SCH ×2 (10:32→22:07)
[2017-01-09] MEDS: LANSOPRAZOLE 30 MG TAB.RAP.DR PO SCH (10:33)
[2017-01-09] MEDS: CITALOPRAM HYDROBROMIDE 20 MG TABLET PO SCH (10:35)
[2017-01-09] MEDS: DOCUSATE SODIUM 100 MG CAPSULE PO SCH ×2 (10:35→17:59)
[2017-01-09] MEDS: FERROUS SULFATE 325 MG TABLET PO SCH (10:35)
[2017-01-09] MEDS: OXYCODONE-ACETAMINOPHEN 5-325 MG TABLET PO PRN ×2 (10:36→18:24)
[2017-01-09] MEDS: OXYCODONE HCL IR 5 MG TABLET PO PRN ×2 (10:36→18:24)
[2017-01-09] MEDS: CLONIDINE HCL 0.1 MG TABLET PO SCH ×2 (12:22→22:24)
--- NOTE | 2017-01-09 18:55 | PDOC PROGRESS REPORT ---
Subjective Progress Note for:: 01/09/17 Subjective:: Patient with osteoporotic fracture of the lumbar spine awaiting kyphoplasty the final touch up painter is looking at doing kyphoplasty next week Friday, patient may need to be discharged back to the [facility] to return back to the hospital for kyphoplasty Physical Exam Vital Signs: Temp Pulse Resp BP Pulse Ox 97.3 F 94 19 79/51 L 96 01/09/17 15:34 01/09/17 15:34 01/09/17 15:34 01/09/17 15:34 01/09/17 15:34 Intake & Output 01/08/17 01/09/17 01/10/17 06:59 06:59 06:59 Intake Total 1125 815 95 Output Total 2 Balance 1125 813 95 Weight 74.2 kg 73.4 kg General appearance: PRESENT: mild distress Eye exam: PRESENT: PERRLA Respiratory exam: PRESENT: clear to auscultation ghulam Cardiovascular exam: PRESENT: +S1, +S2 GI/Abdominal exam: PRESENT: soft Neurological exam: PRESENT: alert Results Laboratory Results: 01/06/17 07:01 01/08/17 05:21 12/31/16 12/31/16 12/31/16 09:00 09:00 09:00 Creatine Kinase 36 Troponin I 0.060 NT-Pro-B Natriuret Pep 4290 H 12/31/16 12/31/16 12/31/16 15:22 15:22 21:30 Creatine Kinase 35 29 L Troponin I 0.026 NT-Pro-B Natriuret Pep 12/31/16 21:30 Creatine Kinase Troponin I 0.021 NT-Pro-B Natriuret Pep Impressions: Lumbar Spine MRI 01/01/17 17:26 IMPRESSION: Acute anterior wedge compression fracture L2 involving the anterior 2/3 of vertebral body with approximately 20% loss of height. No extension into the pedicles. Old treated and untreated compression fractures Multilevel lumbar spondylosis. Most severe finding at L4-5 with marked exit foraminal stenosis and marked central canal stenosis. Chest X-Ray 01/05/17 00:00 IMPRESSION: Interval progression in the previously described mixed interstitial and alveolar opacities in the right lower lung field with increasing confluence. Other findings as noted above Assessment & Plan - Diagnosis (1) Compression fracture of thoracic vertebra, non-traumatic Qualifiers: Encounter type: subsequent encounter Fracture healing: with routine healing Is this a current diagnosis for this admission?: Yes (2) Malignant neoplasm metastatic to left lung Is this a current diagnosis for this admission?: Yes (3) Acute and chronic respiratory failure ([id number]) Qualifiers: Respiratory failure complication: hypoxia and hypercapnia Qualified Code(s) : J96.21 - Acute and chronic respiratory failure with hypoxia; J96.22 - Acute and chronic respiratory failure with hypercapnia Is this a current diagnosis for this admission?: Yes (4) End stage COPD Is this a current diagnosis for this admission?: Yes (5) Osteoporotic compression fracture of spine Qualifiers: Encounter type: subsequent encounter Fracture healing: with routine healing Qualified Code(s): M80.88XD - Other osteoporosis with current pathological fracture, vertebra(e), subsequent encounter for fracture with routine healing Is this a current diagnosis for this admission?: Yes
[2017-01-09] MEDS: MIRTAZAPINE 15 MG TABLET PO SCH (22:07)
[2017-01-09] MEDS: ATORVASTATIN CALCIUM 10 MG TABLET PO SCH (22:08)
[2017-01-09] MEDS: CETIRIZINE 5 MG TABLET PO SCH (22:08)
[2017-01-09] MEDS: IPRATROPIUM/ALBUTEROL 0.5-2.5 MG/3 ML AMPUL NEB PRN (22:30)
[2017-01-10] MEDS: PREGABALIN 75 MG CAPSULE PO SCH ×3 (05:43→21:05)
[2017-01-10] MEDS: TIOTROPIUM BROMIDE DPI 5 CAP/KIT (18 MCG/CAP) IH SCH (09:36)
[2017-01-10] MEDS: LANSOPRAZOLE 30 MG TAB.RAP.DR PO SCH (09:36)
[2017-01-10] MEDS: CITALOPRAM HYDROBROMIDE 20 MG TABLET PO SCH (09:37)
[2017-01-10] MEDS: FERROUS SULFATE 325 MG TABLET PO SCH (09:37)
[2017-01-10] MEDS: CLONIDINE HCL 0.1 MG TABLET PO SCH ×2 (09:37→21:05)
[2017-01-10] MEDS: DOCUSATE SODIUM 100 MG CAPSULE PO SCH ×2 (09:37→18:30)
[2017-01-10] MEDS: OXYCODONE HCL IR 5 MG TABLET PO PRN ×3 (09:38→21:37)
[2017-01-10] MEDS: OXYCODONE-ACETAMINOPHEN 5-325 MG TABLET PO PRN ×3 (09:38→21:37)
[2017-01-10] MEDS: BUDESONIDE/FORMOTEROL 160-4.5 MCG 60 PUFF/6 GM MDI IH SCH ×2 (09:39→21:07)
[2017-01-10] MEDS: BACITRACIN ZINC OINTMENT 15 GM TP SCH ×2 (09:39→21:06)
[2017-01-10] MEDS: ENOXAPARIN SODIUM INJ 40 MG/0.4 ML DISP.SYRIN SUBCUT SCH (09:46)
[2017-01-10] MEDS: BISACODYL 10 MG SUPP.RECT PR PRN (11:25)
[2017-01-10] MEDS: ATORVASTATIN CALCIUM 10 MG TABLET PO SCH (21:05)
[2017-01-10] MEDS: MIRTAZAPINE 15 MG TABLET PO SCH (21:05)
[2017-01-10] MEDS: CETIRIZINE 5 MG TABLET PO SCH (21:06)
--- NOTE | 2017-01-10 21:30 | PDOC PROGRESS REPORT ---
Subjective Progress Note for:: 01/10/17 Subjective:: Patient with osteoporotic fracture of the lumbar spine awaiting kyphoplasty the electrostatic painter is looking at doing kyphoplasty next week Friday, patient may need to be discharged back to the [facility] to return back to the hospital for kyphoplasty Physical Exam Vital Signs: Temp Pulse Resp BP Pulse Ox 97.8 F 80 16 127/70 H 100 01/10/17 20:55 01/10/17 21:17 01/10/17 21:17 01/10/17 20:55 01/10/17 21:17 Intake & Output 01/09/17 01/10/17 01/11/17 06:59 06:59 06:59 Intake Total 815 1005 1158 Output Total 2 300 Balance 813 1005 858 Weight 73.4 kg 75.1 kg General appearance: PRESENT: mild distress Eye exam: PRESENT: PERRLA Respiratory exam: PRESENT: rhonchi Cardiovascular exam: PRESENT: +S1, +S2 GI/Abdominal exam: PRESENT: soft Results Laboratory Results: 01/06/17 07:01 01/08/17 05:21 12/31/16 12/31/16 12/31/16 09:00 09:00 09:00 Creatine Kinase 36 Troponin I 0.060 NT-Pro-B Natriuret Pep 4290 H 12/31/16 12/31/16 12/31/16 15:22 15:22 21:30 Creatine Kinase 35 29 L Troponin I 0.026 NT-Pro-B Natriuret Pep 12/31/16 21:30 Creatine Kinase Troponin I 0.021 NT-Pro-B Natriuret Pep Impressions: Lumbar Spine MRI 01/01/17 17:26 IMPRESSION: Acute anterior wedge compression fracture L2 involving the anterior 2/3 of vertebral body with approximately 20% loss of height. No extension into the pedicles. Old treated and untreated compression fractures Multilevel lumbar spondylosis. Most severe finding at L4-5 with marked exit foraminal stenosis and marked central canal stenosis. Chest X-Ray 01/05/17 00:00 IMPRESSION: Interval progression in the previously described mixed interstitial and alveolar opacities in the right lower lung field with increasing confluence. Other findings as noted above Assessment & Plan - Diagnosis (1) Compression fracture of thoracic vertebra, non-traumatic Qualifiers: Encounter type: subsequent encounter Fracture healing: with routine healing Is this a current diagnosis for this admission?: Yes (2) Malignant neoplasm metastatic to left lung Is this a current diagnosis for this admission?: Yes (3) Acute and chronic respiratory failure ([id number]) Qualifiers: Respiratory failure complication: hypoxia and hypercapnia Qualified Code(s) : J96.21 - Acute and chronic respiratory failure with hypoxia; J96.22 - Acute and chronic respiratory failure with hypercapnia Is this a current diagnosis for this admission?: Yes (4) End stage COPD Is this a current diagnosis for this admission?: Yes (5) Osteoporotic compression fracture of spine Qualifiers: Encounter type: subsequent encounter Fracture healing: with routine healing Qualified Code(s): M80.88XD - Other osteoporosis with current pathological fracture, vertebra(e), subsequent encounter for fracture with routine healing Is this a current diagnosis for this admission?: Yes
[2017-01-11] MEDS: PREGABALIN 75 MG CAPSULE PO SCH ×3 (05:43→21:42)
[2017-01-11] MEDS: DOCUSATE SODIUM 100 MG CAPSULE PO SCH ×2 (09:56→18:13)
[2017-01-11] MEDS: OXYCODONE-ACETAMINOPHEN 5-325 MG TABLET PO PRN ×3 (09:56→21:43)
[2017-01-11] MEDS: LANSOPRAZOLE 30 MG TAB.RAP.DR PO SCH (09:56)
[2017-01-11] MEDS: CLONIDINE HCL 0.1 MG TABLET PO SCH ×2 (09:56→21:42)
[2017-01-11] MEDS: FERROUS SULFATE 325 MG TABLET PO SCH (09:57)
[2017-01-11] MEDS: CITALOPRAM HYDROBROMIDE 20 MG TABLET PO SCH (09:57)
[2017-01-11] MEDS: OXYCODONE HCL IR 5 MG TABLET PO PRN ×3 (09:57→21:42)
[2017-01-11] MEDS: TIOTROPIUM BROMIDE DPI 5 CAP/KIT (18 MCG/CAP) IH SCH (09:57)
[2017-01-11] MEDS: ENOXAPARIN SODIUM INJ 40 MG/0.4 ML DISP.SYRIN SUBCUT SCH (09:58)
[2017-01-11] MEDS: BACITRACIN ZINC OINTMENT 15 GM TP SCH ×2 (09:58→21:43)
[2017-01-11] MEDS: BUDESONIDE/FORMOTEROL 160-4.5 MCG 60 PUFF/6 GM MDI IH SCH ×2 (09:58→21:39)
--- NOTE | 2017-01-11 15:09 | PDOC PROGRESS REPORT ---
Subjective Progress Note for:: 01/11/17 Subjective:: She is scheduled for kyphoplasty in 2 days, she is otherwise stable Physical Exam Vital Signs: Temp Pulse Resp BP Pulse Ox 98.1 F 95 19 96/61 L 97 01/11/17 12:13 01/11/17 14:00 01/11/17 12:13 01/11/17 12:13 01/11/17 12:13 Intake & Output 01/10/17 01/11/17 01/12/17 06:59 06:59 06:59 Intake Total 1005 2103 240 Output Total 300 0 Balance 1005 1803 240 Weight 75.1 kg 72.8 kg General appearance: PRESENT: no acute distress Respiratory exam: PRESENT: rhonchi Cardiovascular exam: PRESENT: +S1, +S2 GI/Abdominal exam: PRESENT: soft Neurological exam: PRESENT: alert Results Laboratory Results: 01/06/17 07:01 01/08/17 05:21 12/31/16 12/31/16 12/31/16 09:00 09:00 09:00 Creatine Kinase 36 Troponin I 0.060 NT-Pro-B Natriuret Pep 4290 H 12/31/16 12/31/16 12/31/16 15:22 15:22 21:30 Creatine Kinase 35 29 L Troponin I 0.026 NT-Pro-B Natriuret Pep 12/31/16 21:30 Creatine Kinase Troponin I 0.021 NT-Pro-B Natriuret Pep Impressions: Lumbar Spine MRI 01/01/17 17:26 IMPRESSION: Acute anterior wedge compression fracture L2 involving the anterior 2/3 of vertebral body with approximately 20% loss of height. No extension into the pedicles. Old treated and untreated compression fractures Multilevel lumbar spondylosis. Most severe finding at L4-5 with marked exit foraminal stenosis and marked central canal stenosis. Chest X-Ray 01/05/17 00:00 IMPRESSION: Interval progression in the previously described mixed interstitial and alveolar opacities in the right lower lung field with increasing confluence. Other findings as noted above Assessment & Plan - Diagnosis (1) Compression fracture of thoracic vertebra, non-traumatic Qualifiers: Encounter type: subsequent encounter Fracture healing: with routine healing Is this a current diagnosis for this admission?: Yes (2) Malignant neoplasm metastatic to left lung Is this a current diagnosis for this admission?: Yes (3) Acute and chronic respiratory failure ([id number]) Qualifiers: Respiratory failure complication: hypoxia and hypercapnia Qualified Code(s) : J96.21 - Acute and chronic respiratory failure with hypoxia; J96.22 - Acute and chronic respiratory failure with hypercapnia Is this a current diagnosis for this admission?: Yes (4) End stage COPD Is this a current diagnosis for this admission?: Yes (5) Osteoporotic compression fracture of spine Qualifiers: Encounter type: subsequent encounter Fracture healing: with routine healing Qualified Code(s): M80.88XD - Other osteoporosis with current pathological fracture, vertebra(e), subsequent encounter for fracture with routine healing Is this a current diagnosis for this admission?: Yes
[2017-01-11] MEDS: MIRTAZAPINE 15 MG TABLET PO SCH (21:43)
[2017-01-11] MEDS: ATORVASTATIN CALCIUM 10 MG TABLET PO SCH (21:43)
[2017-01-11] MEDS: CETIRIZINE 5 MG TABLET PO SCH (21:44)
[2017-01-12] MEDS: PREGABALIN 75 MG CAPSULE PO SCH ×3 (05:17→21:06)
[2017-01-12] MEDS: LANSOPRAZOLE 30 MG TAB.RAP.DR PO SCH (09:06)
[2017-01-12] MEDS: CLONIDINE HCL 0.1 MG TABLET PO SCH ×2 (09:06→21:06)
[2017-01-12] MEDS: OXYCODONE HCL IR 5 MG TABLET PO PRN ×2 (09:08→19:10)
[2017-01-12] MEDS: OXYCODONE-ACETAMINOPHEN 5-325 MG TABLET PO PRN ×2 (09:08→19:10)
[2017-01-12] MEDS: BUDESONIDE/FORMOTEROL 160-4.5 MCG 60 PUFF/6 GM MDI IH SCH ×2 (09:09→21:05)
[2017-01-12] MEDS: DOCUSATE SODIUM 100 MG CAPSULE PO SCH ×2 (09:09→17:53)
[2017-01-12] MEDS: CITALOPRAM HYDROBROMIDE 20 MG TABLET PO SCH (09:09)
[2017-01-12] MEDS: FERROUS SULFATE 325 MG TABLET PO SCH (09:09)
[2017-01-12] MEDS: ENOXAPARIN SODIUM INJ 40 MG/0.4 ML DISP.SYRIN SUBCUT SCH (09:10)
[2017-01-12] MEDS: BACITRACIN ZINC OINTMENT 15 GM TP SCH ×2 (09:10→21:19)
--- NOTE | 2017-01-12 12:47 | PDOC PROGRESS REPORT ---
Subjective Progress Note for:: 01/12/17 Subjective:: She is scheduled for kyphoplasty in 2 days, she is otherwise stable Physical Exam Vital Signs: Temp Pulse Resp BP Pulse Ox 97.4 F 85 18 77/53 L 93 01/12/17 11:56 01/12/17 11:56 01/12/17 11:56 01/12/17 11:56 01/12/17 11:56 Intake & Output 01/11/17 01/12/17 01/13/17 06:59 06:59 06:59 Intake Total 2103 1287 20 Output Total 300 0 0 Balance 1803 1287 20 Weight 72.8 kg 72.5 kg General appearance: PRESENT: no acute distress Eye exam: PRESENT: PERRLA Respiratory exam: PRESENT: clear to auscultation ghulam Cardiovascular exam: PRESENT: +S1, +S2 GI/Abdominal exam: PRESENT: soft Neurological exam: PRESENT: alert Results Laboratory Results: 01/06/17 07:01 01/08/17 05:21 12/31/16 12/31/16 12/31/16 09:00 09:00 09:00 Creatine Kinase 36 Troponin I 0.060 NT-Pro-B Natriuret Pep 4290 H 12/31/16 12/31/16 12/31/16 15:22 15:22 21:30 Creatine Kinase 35 29 L Troponin I 0.026 NT-Pro-B Natriuret Pep 12/31/16 21:30 Creatine Kinase Troponin I 0.021 NT-Pro-B Natriuret Pep Impressions: Lumbar Spine MRI 01/01/17 17:26 IMPRESSION: Acute anterior wedge compression fracture L2 involving the anterior 2/3 of vertebral body with approximately 20% loss of height. No extension into the pedicles. Old treated and untreated compression fractures Multilevel lumbar spondylosis. Most severe finding at L4-5 with marked exit foraminal stenosis and marked central canal stenosis. Chest X-Ray 01/05/17 00:00 IMPRESSION: Interval progression in the previously described mixed interstitial and alveolar opacities in the right lower lung field with increasing confluence. Other findings as noted above Assessment & Plan - Diagnosis (1) Compression fracture of thoracic vertebra, non-traumatic Qualifiers: Encounter type: subsequent encounter Fracture healing: with routine healing Is this a current diagnosis for this admission?: Yes (2) Malignant neoplasm metastatic to left lung Is this a current diagnosis for this admission?: Yes (3) Acute and chronic respiratory failure ([id number]) Qualifiers: Respiratory failure complication: hypoxia and hypercapnia Qualified Code(s) : J96.21 - Acute and chronic respiratory failure with hypoxia; J96.22 - Acute and chronic respiratory failure with hypercapnia Is this a current diagnosis for this admission?: Yes (4) End stage COPD Is this a current diagnosis for this admission?: Yes (5) Osteoporotic compression fracture of spine Qualifiers: Encounter type: subsequent encounter Fracture healing: with routine healing Qualified Code(s): M80.88XD - Other osteoporosis with current pathological fracture, vertebra(e), subsequent encounter for fracture with routine healing Is this a current diagnosis for this admission?: Yes
[2017-01-12] MEDS ORDERED: INFLUENZA ADLT QUAD (36MOS+) 2017-18 VAC 0.5 ML SYR IM PRN (13:21)
[2017-01-12] MEDS: TIOTROPIUM BROMIDE DPI 5 CAP/KIT (18 MCG/CAP) IH SCH (17:52)
[2017-01-12] MEDS: BISACODYL 10 MG SUPP.RECT PR PRN (17:52)
[2017-01-12] MEDS: MIRTAZAPINE 15 MG TABLET PO SCH (21:06)
[2017-01-12] MEDS: ATORVASTATIN CALCIUM 10 MG TABLET PO SCH (21:06)
[2017-01-12] MEDS: NYSTATIN TOPICAL POWDER 15 GM TP SCH (21:07)
[2017-01-12] MEDS: CETIRIZINE 5 MG TABLET PO SCH (21:07)
[2017-01-13] MEDS: PREGABALIN 75 MG CAPSULE PO SCH ×3 (05:10→21:53)
[2017-01-13 06:31] LABS: HEMATOCRIT 28.5 % (36.0-47.0); HEMOGLOBIN 9.6 g/dL (12.0-15.5); HGB HCT DIFFERENCE 0.3; MEAN CORPUSCULAR HEMOGLOBIN 29.2 pg (27.0-33.4); MEAN CORPUSCULAR HGB CONC 33.6 g/dL (32.0-36.0); MEAN CORPUSCULAR VOLUME 87 fl (80-97); RED BLOOD COUNT 3.29 10^6/uL (3.72-5.28); RED CELL DISTRIBUTION WIDTH 18.9 % (11.5-14.0); WHITE BLOOD COUNT 10.4 10^3/uL (4.0-10.5)
[2017-01-13 06:35] LABS: PROTHROMBIN TIME 13.8 SEC (11.4-15.4)
[2017-01-13 06:36] LABS: PARTIAL THROMBOPLASTIN TIME 54.6 SEC (23.5-35.8)
[2017-01-13] MEDS: OXYCODONE-ACETAMINOPHEN 5-325 MG TABLET PO PRN ×3 (06:50→18:57)
[2017-01-13] MEDS: OXYCODONE HCL IR 5 MG TABLET PO PRN ×3 (06:51→18:57)
[2017-01-13 06:55] LABS: BAND NEUTROPHILS % (MANUAL) 1 % (3-5); BASOPHILS % (MANUAL) 0 % (0-2); EOSINOPHILS % (MANUAL) 2 % (0-6); LYMPHOCYTES % (MANUAL) 31 % (13-45); TOTAL CELLS COUNTED 100
[2017-01-13 06:58] LABS: ANISOCYTOSIS 2+; OVALOCYTES SLIGHT; PLATELET CLUMPS PRESENT; POIKILOCYTOSIS SLIGHT; POLYCHROMASIA SLIGHT; TARGET CELLS SLIGHT; TEAR DROP CELLS SLIGHT
[2017-01-13 06:59] LABS: TOXIC GRANULATION SLIGHT
[2017-01-13] MEDS: LANSOPRAZOLE 30 MG TAB.RAP.DR PO SCH (08:25)
[2017-01-13 09:21] LABS: AMORPHOUS SEDIMENT,URINE TRACE /HPF; APPEARANCE,URINE CLOUDY; BILIRUBIN,URINE NEGATIVE (NEGATIVE); GLUCOSE, URINE NEGATIVE (NEGATIVE); KETONES,URINE NEGATIVE (NEGATIVE); LEUKOCYTE ESTERASE,URINE LARGE (NEGATIVE); NITRITE,URINE NEGATIVE (NEGATIVE); PROTEIN,URINE 30 mg/dL (NEGATIVE); URINE SPECIFIC GRAVITY 1.011; UROBILINOGEN,URINE NEGATIVE mg/dL (<2.0)
[2017-01-13] MEDS: CITALOPRAM HYDROBROMIDE 20 MG TABLET PO SCH (09:40)
[2017-01-13] MEDS: FERROUS SULFATE 325 MG TABLET PO SCH (09:40)
[2017-01-13] MEDS: MAGNESIUM HYDROXIDE SUSP 30 ML UDCUP PO PRN (09:40)
[2017-01-13] MEDS: DOCUSATE SODIUM 100 MG CAPSULE PO SCH ×2 (09:40→17:19)
[2017-01-13] MEDS: CLONIDINE HCL 0.1 MG TABLET PO SCH ×2 (09:40→21:53)
[2017-01-13] MEDS: NYSTATIN TOPICAL POWDER 15 GM TP SCH ×2 (09:41→21:52)
[2017-01-13] MEDS: BACITRACIN ZINC OINTMENT 15 GM TP SCH ×2 (09:41→21:52)
[2017-01-13] MEDS: TIOTROPIUM BROMIDE DPI 5 CAP/KIT (18 MCG/CAP) IH SCH (09:41)
[2017-01-13] MEDS: BUDESONIDE/FORMOTEROL 160-4.5 MCG 60 PUFF/6 GM MDI IH SCH ×2 (09:41→21:51)
[2017-01-13] MEDS: IPRATROPIUM/ALBUTEROL 0.5-2.5 MG/3 ML AMPUL NEB PRN ×2 (14:25→20:55)
[2017-01-13] MEDS ORDERED: ONDANSETRON 4 MG TAB.RAPDIS PO PRN (15:08)
--- NOTE | 2017-01-13 21:25 | PDOC PROGRESS REPORT ---
Subjective Progress Note for:: 01/13/17 Subjective:: Patient was seen by the bedside, she is very upset because the initial plan was for her to have kyphoplasty of the osteoporotic fracture of the lumbar vertebrae tomorrow but the pain specialist indicated that the urine dipstick was abnormal with positive leukocyte esterase, pyuria and because of his concern for UTI He does not want the procedure done tomorrow. Patient is very reluctant to return to retirement without getting the procedure done ,she is a lot of pain she says she is miserable. She has a history of lung cancer she was supposed to go to [place] this week for an appointment to initiate therapy for the lung cancer. Physical Exam Vital Signs: Temp Pulse Resp BP Pulse Ox 98.1 F 97 18 102/56 L 95 01/13/17 15:54 01/13/17 15:54 01/13/17 15:54 01/13/17 15:54 01/13/17 15:54 Intake & Output 01/12/17 01/13/17 01/14/17 06:59 06:59 06:59 Intake Total 1287 755 596 Output Total 0 0 Balance 1287 755 596 Weight 72.5 kg 73.8 kg General appearance: PRESENT: mild distress Eye exam: PRESENT: PERRLA Respiratory exam: PRESENT: rhonchi Cardiovascular exam: PRESENT: +S1, +S2 GI/Abdominal exam: PRESENT: soft Neurological exam: PRESENT: alert Results Laboratory Results: 01/13/17 06:17 01/08/17 05:21 01/13/17 01/13/17 06:17 06:45 WBC 10.4 RBC 3.29 L Hgb 9.6 L Hct 28.5 L MCV 87 MCH 29.2 MCHC 33.6 RDW 18.9 H Plt Count 440 Seg Neutrophils % Not Reportable Lymphocytes % Not Reportable Monocytes % Not Reportable Eosinophils % Not Reportable Basophils % Not Reportable Absolute Neutrophils Not Reportable Absolute Lymphocytes Not Reportable Absolute Monocytes Not Reportable Absolute Eosinophils Not Reportable Absolute Basophils Not Reportable Urine Color YELLOW Urine Appearance CLOUDY Urine pH 6.0 Ur Specific [place] 1.011 Urine Protein 30 H Urine Glucose (UA) NEGATIVE Urine Ketones NEGATIVE Urine Blood SMALL H Urine Nitrite NEGATIVE Ur Leukocyte Esterase LARGE H Urine WBC (Auto) >182 Urine RBC (Auto) 14 12/31/16 12/31/16 12/31/16 09:00 09:00 09:00 Creatine Kinase 36 Troponin I 0.060 NT-Pro-B Natriuret Pep 4290 H 12/31/16 12/31/16 12/31/16 15:22 15:22 21:30 Creatine Kinase 35 29 L Troponin I 0.026 NT-Pro-B Natriuret Pep 12/31/16 21:30 Creatine Kinase Troponin I 0.021 NT-Pro-B Natriuret Pep Impressions: Lumbar Spine MRI 01/01/17 17:26 IMPRESSION: Acute anterior wedge compression fracture L2 involving the anterior 2/3 of vertebral body with approximately 20% loss of height. No extension into the pedicles. Old treated and untreated compression fractures Multilevel lumbar spondylosis. Most severe finding at L4-5 with marked exit foraminal stenosis and marked central canal stenosis. Chest X-Ray 01/05/17 00:00 IMPRESSION: Interval progression in the previously described mixed interstitial and alveolar opacities in the right lower lung field with increasing confluence. Other findings as noted above Assessment & Plan - Diagnosis (1) Compression fracture of thoracic vertebra, non-traumatic Qualifiers: Encounter type: subsequent encounter Fracture healing: with routine healing Is this a current diagnosis for this admission?: Yes (2) Malignant neoplasm metastatic to left lung Is this a current diagnosis for this admission?: Yes (3) Acute and chronic respiratory failure ([id number]) Qualifiers: Respiratory failure complication: hypoxia and hypercapnia Qualified Code(s) : J96.21 - Acute and chronic respiratory failure with hypoxia; J96.22 - Acute and chronic respiratory failure with hypercapnia Is this a current diagnosis for this admission?: Yes (4) End stage COPD Is this a current diagnosis for this admission?: Yes (5) Osteoporotic compression fracture of spine Qualifiers: Encounter type: subsequent encounter Fracture healing: with routine healing Qualified Code(s): M80.88XD - Other osteoporosis with current pathological fracture, vertebra(e), subsequent encounter for fracture with routine healing Is this a current diagnosis for this admission?: Yes (6) Abnormal urinalysis Is this a current diagnosis for this admission?: Yes Plan: Patient is asymptomatic but she has abnormal urinalysis with positive leukocyte esterase, pyuria, she will empirically be treated with Macrobid ,urine culture will be obtained
[2017-01-13] MEDS: NITROFURANTOIN MONOHYD/M-CRYST 100 MG CAPSULE PO SCH (21:53)
[2017-01-13] MEDS: ATORVASTATIN CALCIUM 10 MG TABLET PO SCH (21:53)
[2017-01-13] MEDS: MIRTAZAPINE 15 MG TABLET PO SCH (21:53)
[2017-01-13] MEDS: CETIRIZINE 5 MG TABLET PO SCH (21:54)
[2017-01-14] MEDS: PREGABALIN 75 MG CAPSULE PO SCH ×3 (05:45→21:40)
[2017-01-14 06:23] LABS: AMORPHOUS SEDIMENT,URINE TRACE /HPF; APPEARANCE,URINE CLOUDY; BILIRUBIN,URINE NEGATIVE (NEGATIVE); GLUCOSE, URINE NEGATIVE (NEGATIVE); KETONES,URINE NEGATIVE (NEGATIVE); LEUKOCYTE ESTERASE,URINE LARGE (NEGATIVE); NITRITE,URINE NEGATIVE (NEGATIVE); PROTEIN,URINE NEGATIVE (NEGATIVE); URINE SPECIFIC GRAVITY 1.006; UROBILINOGEN,URINE NEGATIVE mg/dL (<2.0)
[2017-01-14] MEDS: TIOTROPIUM BROMIDE DPI 5 CAP/KIT (18 MCG/CAP) IH SCH (09:35)
[2017-01-14] MEDS: CITALOPRAM HYDROBROMIDE 20 MG TABLET PO SCH (09:35)
[2017-01-14] MEDS: CLONIDINE HCL 0.1 MG TABLET PO SCH ×2 (09:35→21:41)
[2017-01-14] MEDS: DOCUSATE SODIUM 100 MG CAPSULE PO SCH ×2 (09:35→17:28)
[2017-01-14] MEDS: OXYCODONE-ACETAMINOPHEN 5-325 MG TABLET PO PRN ×2 (09:36→17:42)
[2017-01-14] MEDS: FERROUS SULFATE 325 MG TABLET PO SCH (09:36)
[2017-01-14] MEDS: LANSOPRAZOLE 30 MG TAB.RAP.DR PO SCH (09:36)
[2017-01-14] MEDS: NYSTATIN TOPICAL POWDER 15 GM TP SCH ×2 (09:37→21:39)
[2017-01-14] MEDS: BACITRACIN ZINC OINTMENT 15 GM TP SCH ×2 (09:37→21:39)
[2017-01-14] MEDS: OXYCODONE HCL IR 5 MG TABLET PO PRN ×2 (09:37→17:42)
[2017-01-14] MEDS: NITROFURANTOIN MONOHYD/M-CRYST 100 MG CAPSULE PO SCH ×2 (09:37→21:40)
[2017-01-14] MEDS: BUDESONIDE/FORMOTEROL 160-4.5 MCG 60 PUFF/6 GM MDI IH SCH ×2 (09:39→21:40)
[2017-01-14] MEDS: CETIRIZINE 5 MG TABLET PO SCH (21:40)
[2017-01-14] MEDS: MIRTAZAPINE 15 MG TABLET PO SCH (21:40)
[2017-01-14] MEDS: ATORVASTATIN CALCIUM 10 MG TABLET PO SCH (21:40)
--- NOTE | 2017-01-14 21:48 | PDOC PROGRESS REPORT ---
Subjective Progress Note for:: 01/14/17 Subjective:: Patient was seen by the bedside, she is very upset because the initial plan was for her to have kyphoplasty of the osteoporotic fracture of the lumbar vertebrae tomorrow but the pain specialist indicated that the urine dipstick was abnormal with positive leukocyte esterase, pyuria and because of his concern for UTI He does not want the procedure done tomorrow. Patient is very reluctant to return to skilled nursing without getting the procedure done ,she is a lot of pain she says she is miserable. She has a history of lung cancer she was supposed to go to [place] this week for an appointment to initiate therapy for the lung cancer. Physical Exam Vital Signs: Temp Pulse Resp BP Pulse Ox 97.4 F 86 22 H 111/72 97 01/14/17 19:55 01/14/17 19:55 01/14/17 20:38 01/14/17 19:55 01/14/17 19:55 Intake & Output 01/13/17 01/14/17 01/15/17 06:59 06:59 06:59 Intake Total 755 866 720 Output Total 0 Balance 755 866 720 Weight 73.8 kg 73 kg General appearance: PRESENT: no acute distress Eye exam: PRESENT: PERRLA Respiratory exam: PRESENT: unlabored Cardiovascular exam: PRESENT: +S1, +S2 GI/Abdominal exam: PRESENT: soft Results Laboratory Results: 01/13/17 06:17 01/08/17 05:21 01/14/17 05:55 Urine Color YELLOW Urine Appearance CLOUDY Urine pH 6.0 Ur Specific [place] 1.006 Urine Protein NEGATIVE Urine Glucose (UA) NEGATIVE Urine Ketones NEGATIVE Urine Blood SMALL H Urine Nitrite NEGATIVE Ur Leukocyte Esterase LARGE H Urine WBC (Auto) >182 Urine RBC (Auto) 16 12/31/16 12/31/16 12/31/16 09:00 09:00 09:00 Creatine Kinase 36 Troponin I 0.060 NT-Pro-B Natriuret Pep 4290 H 12/31/16 12/31/16 12/31/16 15:22 15:22 21:30 Creatine Kinase 35 29 L Troponin I 0.026 NT-Pro-B Natriuret Pep 12/31/16 21:30 Creatine Kinase Troponin I 0.021 NT-Pro-B Natriuret Pep Impressions: Lumbar Spine MRI 01/01/17 17:26 IMPRESSION: Acute anterior wedge compression fracture L2 involving the anterior 2/3 of vertebral body with approximately 20% loss of height. No extension into the pedicles. Old treated and untreated compression fractures Multilevel lumbar spondylosis. Most severe finding at L4-5 with marked exit foraminal stenosis and marked central canal stenosis. Chest X-Ray 01/05/17 00:00 IMPRESSION: Interval progression in the previously described mixed interstitial and alveolar opacities in the right lower lung field with increasing confluence. Other findings as noted above Assessment & Plan - Diagnosis (1) Compression fracture of thoracic vertebra, non-traumatic Qualifiers: Encounter type: subsequent encounter Fracture healing: with routine healing Is this a current diagnosis for this admission?: Yes (2) Malignant neoplasm metastatic to left lung Is this a current diagnosis for this admission?: Yes (3) Acute and chronic respiratory failure ([id number]) Qualifiers: Respiratory failure complication: hypoxia and hypercapnia Qualified Code(s) : J96.21 - Acute and chronic respiratory failure with hypoxia; J96.22 - Acute and chronic respiratory failure with hypercapnia; J96.22 - Acute and chronic respiratory failure with hypercapnia; J96.22 - Acute and chronic respiratory failure with hypercapnia Is this a current diagnosis for this admission?: Yes (4) End stage COPD Is this a current diagnosis for this admission?: Yes (5) Osteoporotic compression fracture of spine Qualifiers: Encounter type: subsequent encounter Fracture healing: with routine healing Qualified Code(s): M80.88XD - Other osteoporosis with current pathological fracture, vertebra(e), subsequent encounter for fracture with routine healing Is this a current diagnosis for this admission?: Yes (6) Abnormal urinalysis Is this a current diagnosis for this admission?: Yes
[2017-01-14] MEDS: MAGNESIUM HYDROXIDE SUSP 30 ML UDCUP PO PRN (22:19)
[2017-01-15] MEDS: PREGABALIN 75 MG CAPSULE PO SCH ×3 (05:10→21:54)
[2017-01-15] MEDS: OXYCODONE HCL IR 5 MG TABLET PO PRN ×2 (08:04→16:26)
[2017-01-15] MEDS: OXYCODONE-ACETAMINOPHEN 5-325 MG TABLET PO PRN ×2 (08:04→16:26)
[2017-01-15] MEDS: LANSOPRAZOLE 30 MG TAB.RAP.DR PO SCH (08:39)
[2017-01-15] MEDS: MAGNESIUM HYDROXIDE SUSP 30 ML UDCUP PO PRN (08:40)
[2017-01-15] MEDS: BUDESONIDE/FORMOTEROL 160-4.5 MCG 60 PUFF/6 GM MDI IH SCH ×2 (09:32→21:53)
[2017-01-15] MEDS: CITALOPRAM HYDROBROMIDE 20 MG TABLET PO SCH (09:33)
[2017-01-15] MEDS: CLONIDINE HCL 0.1 MG TABLET PO SCH ×2 (09:33→22:01)
[2017-01-15] MEDS: DOCUSATE SODIUM 100 MG CAPSULE PO SCH ×2 (09:33→18:00)
[2017-01-15] MEDS: FERROUS SULFATE 325 MG TABLET PO SCH (09:33)
[2017-01-15] MEDS: NITROFURANTOIN MONOHYD/M-CRYST 100 MG CAPSULE PO SCH ×2 (09:33→21:54)
[2017-01-15] MEDS: NYSTATIN TOPICAL POWDER 15 GM TP SCH ×2 (09:34→21:52)
[2017-01-15] MEDS: BACITRACIN ZINC OINTMENT 15 GM TP SCH ×2 (09:34→21:52)
[2017-01-15] MEDS: TIOTROPIUM BROMIDE DPI 5 CAP/KIT (18 MCG/CAP) IH SCH (09:35)
--- NOTE | 2017-01-15 18:01 | PDOC PROGRESS REPORT ---
Subjective Progress Note for:: 01/15/17 Subjective:: She was seen by the bedside, Physical Exam Vital Signs: Temp Pulse Resp BP Pulse Ox 98.2 F 85 18 102/61 98 01/15/17 11:49 01/15/17 14:00 01/15/17 11:49 01/15/17 11:49 01/15/17 11:49 Intake & Output 01/14/17 01/15/17 01/16/17 06:59 06:59 06:59 Intake Total 866 1640 480 Output Total 300 Balance 866 1340 480 Weight 73 kg 76 kg General appearance: PRESENT: no acute distress Eye exam: PRESENT: PERRLA Respiratory exam: PRESENT: clear to auscultation ghulam Cardiovascular exam: PRESENT: +S1, +S2 Results Laboratory Results: 01/13/17 06:17 01/08/17 05:21 12/31/16 12/31/16 12/31/16 09:00 09:00 09:00 Creatine Kinase 36 Troponin I 0.060 NT-Pro-B Natriuret Pep 4290 H 12/31/16 12/31/16 12/31/16 15:22 15:22 21:30 Creatine Kinase 35 29 L Troponin I 0.026 NT-Pro-B Natriuret Pep 12/31/16 21:30 Creatine Kinase Troponin I 0.021 NT-Pro-B Natriuret Pep Impressions: Lumbar Spine MRI 01/01/17 17:26 IMPRESSION: Acute anterior wedge compression fracture L2 involving the anterior 2/3 of vertebral body with approximately 20% loss of height. No extension into the pedicles. Old treated and untreated compression fractures Multilevel lumbar spondylosis. Most severe finding at L4-5 with marked exit foraminal stenosis and marked central canal stenosis. Chest X-Ray 01/05/17 00:00 IMPRESSION: Interval progression in the previously described mixed interstitial and alveolar opacities in the right lower lung field with increasing confluence. Other findings as noted above Assessment & Plan - Diagnosis (1) Compression fracture of thoracic vertebra, non-traumatic Qualifiers: Encounter type: subsequent encounter Fracture healing: with routine healing Is this a current diagnosis for this admission?: Yes (2) Malignant neoplasm metastatic to left lung Is this a current diagnosis for this admission?: Yes (3) Acute and chronic respiratory failure ([id number]) Qualifiers: Respiratory failure complication: hypoxia and hypercapnia Qualified Code(s) : J96.21 - Acute and chronic respiratory failure with hypoxia; J96.22 - Acute and chronic respiratory failure with hypercapnia; J96.22 - Acute and chronic respiratory failure with hypercapnia; J96.22 - Acute and chronic respiratory failure with hypercapnia Is this a current diagnosis for this admission?: Yes (4) End stage COPD Is this a current diagnosis for this admission?: Yes (5) Osteoporotic compression fracture of spine Qualifiers: Encounter type: subsequent encounter Fracture healing: with routine healing Qualified Code(s): M80.88XD - Other osteoporosis with current pathological fracture, vertebra(e), subsequent encounter for fracture with routine healing Is this a current diagnosis for this admission?: Yes (6) Abnormal urinalysis Is this a current diagnosis for this admission?: Yes
[2017-01-15 18:38] LABS: HEMATOCRIT 27.8 % (36.0-47.0); HEMOGLOBIN 9.3 g/dL (12.0-15.5); HGB HCT DIFFERENCE 0.1; MEAN CORPUSCULAR HEMOGLOBIN 28.9 pg (27.0-33.4); MEAN CORPUSCULAR HGB CONC 33.6 g/dL (32.0-36.0); MEAN CORPUSCULAR VOLUME 86 fl (80-97); RED BLOOD COUNT 3.23 10^6/uL (3.72-5.28); RED CELL DISTRIBUTION WIDTH 18.5 % (11.5-14.0); WHITE BLOOD COUNT 10.3 10^3/uL (4.0-10.5)
[2017-01-15 18:51] LABS: ALANINE AMINOTRANSFERASE 16 U/L (9-52); ALBUMIN 2.8 g/dL (3.5-5.0); ALKALINE PHOSPHATASE 96 U/L (38-126); ASPARTATE AMINO TRANSFERASE 15 U/L (14-36); BASOPHILS % (MANUAL) 0 % (0-2); BILIRUBIN,DIRECT 0.3 mg/dL (0.0-0.4); BILIRUBIN,TOTAL 0.3 mg/dL (0.2-1.3); BLOOD UREA NITROGEN 20 mg/dL (7-20); CALCIUM 9.4 mg/dL (8.4-10.2); CREATININE RESULT 0.88 mg/dL (0.52-1.25); EOSINOPHILS % (MANUAL) 2 % (0-6); GLUCOSE 76 mg/dL (75-110); LYMPHOCYTES % (MANUAL) 33 % (13-45); TOTAL CELLS COUNTED 100; TOTAL PROTEIN 5.8 g/dL (6.3-8.2)
[2017-01-15 18:53] LABS: ANISOCYTOSIS 1+; OVALOCYTES SLIGHT; POIKILOCYTOSIS SLIGHT
[2017-01-15 18:54] LABS: POLYCHROMASIA SLIGHT
[2017-01-15 18:59] LABS: ANION GAP 6 (5-19); CARBON DIOXIDE 29 mmol/L (22-30); CHLORIDE 104 mmol/L (98-107)
[2017-01-15] MEDS: IPRATROPIUM/ALBUTEROL 0.5-2.5 MG/3 ML AMPUL NEB PRN (20:17)
[2017-01-15] MEDS: ATORVASTATIN CALCIUM 10 MG TABLET PO SCH (21:53)
[2017-01-15] MEDS: CETIRIZINE 5 MG TABLET PO SCH (21:53)
[2017-01-15] MEDS: MIRTAZAPINE 15 MG TABLET PO SCH (21:54)
[2017-01-16] MEDS: PREGABALIN 75 MG CAPSULE PO SCH ×3 (05:49→21:14)
[2017-01-16] MEDS: OXYCODONE-ACETAMINOPHEN 5-325 MG TABLET PO PRN ×3 (05:49→21:03)
[2017-01-16] MEDS: OXYCODONE HCL IR 5 MG TABLET PO PRN ×3 (05:53→21:02)
[2017-01-16] MEDS: LANSOPRAZOLE 30 MG TAB.RAP.DR PO SCH (07:57)
[2017-01-16] MEDS: IPRATROPIUM/ALBUTEROL 0.5-2.5 MG/3 ML AMPUL NEB PRN ×2 (08:31→20:27)
[2017-01-16] MEDS: DOCUSATE SODIUM 100 MG CAPSULE PO SCH ×2 (09:33→17:59)
[2017-01-16] MEDS: NITROFURANTOIN MONOHYD/M-CRYST 100 MG CAPSULE PO SCH ×2 (09:33→21:14)
[2017-01-16] MEDS: CITALOPRAM HYDROBROMIDE 20 MG TABLET PO SCH (09:33)
[2017-01-16] MEDS: FERROUS SULFATE 325 MG TABLET PO SCH (09:33)
[2017-01-16] MEDS: NYSTATIN TOPICAL POWDER 15 GM TP SCH ×2 (09:34→21:15)
[2017-01-16] MEDS: CLONIDINE HCL 0.1 MG TABLET PO SCH ×2 (09:34→21:21)
[2017-01-16] MEDS: TIOTROPIUM BROMIDE DPI 5 CAP/KIT (18 MCG/CAP) IH SCH (09:35)
[2017-01-16] MEDS: BACITRACIN ZINC OINTMENT 15 GM TP SCH ×2 (09:35→21:21)
[2017-01-16] MEDS: BUDESONIDE/FORMOTEROL 160-4.5 MCG 60 PUFF/6 GM MDI IH SCH ×2 (09:35→21:13)
--- NOTE | 2017-01-16 17:17 | CONSULTATION REPORT E ---
Consultation Report NAME: HUNTER GRANADOS : 1945 AGE: 71Y DATE: 01/16/2017 334 A TO: TONY FREIRE M.D. FROM: NATACHA ENGLAND M.D. Requesting Physician REASON FOR CONSULTATION: L2 vertebral compression fracture. SUBJECTIVE: The patient well-known to our service. Previously seen in consultation during this hospitalization for consideration of kyphoplasty at L2 after a recent compression fracture. The patient found to have pain with movement that continuous but is treated with oxycodone p.r.n. and doing well. She has remained in-house while being treated for chronic respiratory failure, lung cancer. Has had a recent consideration for pneumonia and urinary tract infection and is currently on Macrobid for the UTI. She continuous to desire kyphoplasty but understands that she is currently being treated for her UTI and concern for her elevated anticoagulation PTT. She denies any other changes to her health. She denies any urinary symptoms. She denies any history of easy bruising or family history of blood disorders. She states that her current oyster sorter/oncologist, Dr. Merino but also sees an oncologist for her lung cancer at [place]. PAST MEDICAL HISTORY: 1. COPD. 2. Recent pneumonia with hypercarbic/hypoxic respiratory failure. 3. GERD. 4. Hypertension. 5. Arthritis. 6. Depression. 7. Prior osteoporotic compression fracture. 8. Prior concern for pathologic fracture. 9. Lung cancer. 10. History of MRSA. PAST SURGICAL HISTORY: 1. Kyphoplasty as noted. 2. Appendectomy. 3. Cholecystectomy. 4. Hysterectomy. SOCIAL HISTORY: Former smoker. Denied illicits. FAMILY HISTORY: Noncontributory. MEDICATIONS: Please see MAR, currently taking oxycodone p.r.n. for breakthrough pain and Lyrica as well. ALLERGIES: PENICILLINS. REVIEW OF SYSTEMS: Otherwise unchanged from prior dictated consultation note. PHYSICAL EXAMINATION: GENERAL: The patient resting comfortably. HEAD: Normocephalic, atraumatic. RESPIRATORY: nasal cannula 2-3 L. No wheezing present. CARDIOVASCULAR: Regular rate and rhythm. ABDOMEN: Soft, nontender. NEUROLOGIC: Awake and alert. Oriented to person and time. SPINE: Tender to palpation in the upper lumbar spine as before, unchanged. PSYCHIATRIC: Anxious, appropriate affect. DIAGNOSTIC DATA: Labs; the patient had recent urine sent off, analysis was still showing pyuria and PTT is still remaining elevated at 48 after 5 days of being off enoxaparin. She remains on Macrobid with urinary culture pending. ASSESSMENT: L2 compression fracture new, pending kyphoplasty in the setting of recent hospitalization for hypercarbic/hypoxic respiratory failure. PLAN: 1. I have discussed with Dr. England her candidacy after her original treatment for the pneumonia versus COPD exacerbation with now presence of pyuria and concern for UTI. She is currently on antibiotics with pending urinary culture. She will need to have appropriate treatment prior to consideration for kyphoplasty. 2. Of note, we had a long discussion with the patient regarding her recent elevated PTT. I have spoken with her oyster sorter, Dr. Merino, who would like her to be worked up before consideration for further interventional procedure given bleeding risk. She had discussed work up for factor deficiency, von Willebrand factor, and inhibitors. Of note we also discussed inherent risk of continuing to hold her enoxaparin given that she is hypercoagulable related to her lung cancer and her immobility with concerns for DVT versus stroke. We have discussed that the consideration should be made as that there is risks with continuing to hold her anticoagulation for prophylaxis. The patient would like to discuss with her primary this as well. 3. We have continued to discuss treatment for kyphoplasty as outpatient with continued treatment with pain medication in the interim and a TLSO brace while she completes therapy for her UTI and workup for her elevated PTT non-correcting after 5 days off enoxaparin. 4. We will revisit consideration for kyphoplasty after the workup from her oyster sorter, either in-house or as an outpatient, and consideration once she has completed her urinary culture results and treatment with antibiotics. Thank you for this consultation. DICTATING PHYSICIAN: TONY FREIRE M.D. [id number] PHY#: [id number] ID: [id number] JOB#: [id number] ACCT: [id number] cc:TONY FREIRE M.D. > [facility]
[2017-01-16] MEDS: ALBUTEROL SULFATE HFA (90 MCG/PUFF) 200 PUFF/8.5 GM MDI IH PRN (17:50)
[2017-01-16] MEDS: ATORVASTATIN CALCIUM 10 MG TABLET PO SCH (21:13)
[2017-01-16] MEDS: MIRTAZAPINE 15 MG TABLET PO SCH (21:14)
[2017-01-16] MEDS: CETIRIZINE 5 MG TABLET PO SCH (21:14)
--- NOTE | 2017-01-16 22:41 | PDOC TRANSFER SUMMARY ---
General - Admit/Disc Date/PCP Admission Date/Primary Care Provider: 12/31/16 08:07 NATACHA ENGLAND MD Discharge Date: 01/17/17 - Discharge Diagnosis (1) Compression fracture of thoracic vertebra, non-traumatic Is this a current diagnosis for this admission?: Yes (2) Malignant neoplasm metastatic to left lung Is this a current diagnosis for this admission?: Yes (3) Acute and chronic respiratory failure ([id number]) Is this a current diagnosis for this admission?: Yes (4) End stage COPD Is this a current diagnosis for this admission?: Yes (5) Osteoporotic compression fracture of spine Is this a current diagnosis for this admission?: Yes (6) Abnormal urinalysis Is this a current diagnosis for this admission?: Yes - Additional Information Resuscitation Status: Full Code Home Medications: Methocarbamol [Robaxin 500 mg Tablet] 500 mg PO BID #10 tablet 12/26/16 Albuterol Sulfate [Proair HFA] 2 puff IH Q4HP PRN 12/31/16 Amlodipine Besylate [Norvasc 5 mg Tablet] 5 mg PO DAILY 12/31/16 Atorvastatin Calcium [Lipitor 10 mg Tablet] 10 mg PO QHS 12/31/16 Budesonide/Formoterol Fumarate [Symbicort HFA 160-4.5 mcg Inhaler 6 gm] 1 puff IH Q12 12/31/16 Citalopram Hydrobromide [Celexa 20 mg Tablet] 20 mg PO DAILY 12/31/16 Clonidine HCl [Catapres 0.1 mg Tablet] 0.1 mg PO Q12 12/31/16 Ergocalciferol (Vitamin D2) [Drisdol 50,000 unit (1.25MG) Capsule] 50,000 unit PO [id number] 12/31/16 Ferrous Sulfate [Feosol 325 mg Tablet] 325 mg PO DAILY 12/31/16 Ipratropium/Albuterol Sulfate [Duoneb 3 ml Ampul] 3 ml NEB RTQ6HP PRN 12/31/16 Levocetirizine Dihydrochloride [Xyzal] 5 mg PO QHS 12/31/16 Losartan Potassium [Cozaar 100 mg Tablet] 100 mg PO DAILY 12/31/16 Mirtazapine [Remeron 15 mg Tablet] 7.5 mg PO QHS 12/31/16 Omeprazole 40 mg PO QAM 12/31/16 Oxycodone HCl/Acetaminophen [Percocet 10-325 mg Tablet] 1 each PO Q6HP PRN 12/31 Pregabalin [Lyrica 75 mg Capsule] 75 mg PO Q8 12/31/16 Tiotropium [place] [Spiriva Handihaler 18 mcg/dose (30 Dose)] 1 cap IH DAILY History of Present Illness Admission Date/PCP: 12/31/16 08:07 NATACHA ENGLAND MD History of Present Illness: HUNTER GRANADOS is a 71 year old female, She has a history of chronic respiratory failure, resident of the residential at [facility] she was transferred to the emergency room for evaluation of shortness of breath. Patient is well-known to me she has multiple hospitalizations for respiratory related conditions, the last time she was admitted I discussed the option of palliative care/hospice care with the patient and family but they declined the option. She has end-stage COPD on she tend to decompensate when exposed to any form of stress. I believe she recently saw the oncologist and a PET scan was done that showed a slight increase in the lung cancer. 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 This has been ongoing for the last more than 12 months.. A chest x-ray was done in the emergency room, it did not show any acute infiltrate to suggest pneumonia most likely her symptoms is due to COPD exacerbation she is requiring noninvasive positive pressure ventilation, with BiPAP. The blood work revealed leukocytosis most likely from prednisone that she is on the residential. Hospital Course Hospital Course: She was admitted because of acute hypercapnic respiratory failure due to COPD hospital course was complicated with UTI, she had severe back pain MRI was done it showed new osteoporotic fracture of lumbar vertebrae. Consultation was requested from pain management kyphoplasty was recommended but the pain specialist wanted her treated with antibiotic for 10 days for COPD this was done ,then she had UTI in the hospital ultimately the kyphoplasty could not be done because of coagulopathy. The pain specialist want the the elevated PT evaluated outpatient before kyphoplasty is done Physical Exam Vital Signs: Temp Pulse Resp BP Pulse Ox 98.2 F 85 15 97/59 L 96 10/05/17 20:13 01/16/17 20:13 01/16/17 20:26 01/16/17 20:13 01/16/17 20:26 Intake & Output 01/15/17 01/16/17 01/17/17 06:59 06:59 06:59 Intake Total 1640 2717 1068 Output Total 300 Balance 1340 2717 1068 Weight 76 kg 76.5 kg General appearance: PRESENT: mild distress Eye exam: PRESENT: PERRLA Respiratory exam: PRESENT: rhonchi Cardiovascular exam: PRESENT: +S1, +S2 GI/Abdominal exam: PRESENT: soft Neurological exam: PRESENT: alert Results Laboratory Results: 01/15/17 18:14 01/15/17 18:14 12/31/16 12/31/16 12/31/16 09:00 09:00 09:00 Creatine Kinase 36 Troponin I 0.060 NT-Pro-B Natriuret Pep 4290 H 12/31/16 12/31/16 12/31/16 15:22 15:22 21:30 Creatine Kinase 35 29 L Troponin I 0.026 NT-Pro-B Natriuret Pep 12/31/16 21:30 Creatine Kinase Troponin I 0.021 NT-Pro-B Natriuret Pep Impressions: Lumbar Spine MRI 01/01/17 17:26 IMPRESSION: Acute anterior wedge compression fracture L2 involving the anterior 2/3 of vertebral body with approximately 20% loss of height. No extension into the pedicles. Old treated and untreated compression fractures Multilevel lumbar spondylosis. Most severe finding at L4-5 with marked exit foraminal stenosis and marked central canal stenosis. Chest X-Ray 01/05/17 00:00 IMPRESSION: Interval progression in the previously described mixed interstitial and alveolar opacities in the right lower lung field with increasing confluence. Other findings as noted above Transfer Plan - Disposition Transfer Plan: Patient is to follow with pain management DR Jonatan STEWART,DR Wilber STEWART for evaluation of coagulopathy
[2017-01-17] MEDS: PREGABALIN 75 MG CAPSULE PO SCH ×2 (07:19→13:45)
[2017-01-17] MEDS: IPRATROPIUM/ALBUTEROL 0.5-2.5 MG/3 ML AMPUL NEB PRN (08:26)
[2017-01-17] MEDS: CLONIDINE HCL 0.1 MG TABLET PO SCH (08:57)
[2017-01-17] MEDS: FERROUS SULFATE 325 MG TABLET PO SCH (08:57)
[2017-01-17] MEDS: CITALOPRAM HYDROBROMIDE 20 MG TABLET PO SCH (08:57)
[2017-01-17] MEDS: DOCUSATE SODIUM 100 MG CAPSULE PO SCH (08:57)
[2017-01-17] MEDS: NITROFURANTOIN MONOHYD/M-CRYST 100 MG CAPSULE PO SCH (08:58)
[2017-01-17] MEDS: LANSOPRAZOLE 30 MG TAB.RAP.DR PO SCH (08:58)
[2017-01-17] MEDS: OXYCODONE HCL IR 5 MG TABLET PO PRN (09:00)
[2017-01-17] MEDS: OXYCODONE-ACETAMINOPHEN 5-325 MG TABLET PO PRN (09:00)
[2017-01-17] MEDS: BACITRACIN ZINC OINTMENT 15 GM TP SCH (09:01)
[2017-01-17] MEDS: TIOTROPIUM BROMIDE DPI 5 CAP/KIT (18 MCG/CAP) IH SCH (09:01)
[2017-01-17] MEDS: BUDESONIDE/FORMOTEROL 160-4.5 MCG 60 PUFF/6 GM MDI IH SCH (09:02)
[2017-01-17] MEDS: NYSTATIN TOPICAL POWDER 15 GM TP SCH (09:03)
[2017-01-17] MEDS: MAGNESIUM HYDROXIDE SUSP 30 ML UDCUP PO PRN (09:06)
[2017-01-17 13:40] VITALS: BP 93/55
== END 2017-01-17 15:18 | DRG 190 ==
LOC: ER 04:06 → EH 06:36 → UNDOADMIN 06:36 → EH 07:45 → 3S 07:45
PROVIDERS: ADMIT Internal Medicine; ATTEND Internal Medicine
PROC: 3E0F73Z Introduction of Anti-inflammatory into Respiratory Tract, Via Natural or Artificial Opening (ICD-10-PCS; principal; 2016-12-31)
PROC: 5A09557 Assistance with Respiratory Ventilation, Greater than 96 Consecutive Hours, Continuous Positive Airway Pressure (ICD-10-PCS; 2016-12-31)
PROC: 3E0234Z Introduction of Serum, Toxoid and Vaccine into Muscle, Percutaneous Approach (ICD-10-PCS; 2017-01-17)
DX: J44.1 Chronic obstructive pulmonary disease with (acute) exacerbation (principal); J96.22 Acute and chronic respiratory failure with hypercapnia; J96.21 Acute and chronic respiratory failure with hypoxia; N39.0 Urinary tract infection, site not specified; M48.56XA Collapsed vertebra, not elsewhere classified, lumbar region, initial encounter for fracture; C78.02 Secondary malignant neoplasm of left lung; M80.88XA Other osteoporosis with current pathological fracture, vertebra(e), initial encounter for fracture; M48.54XD Collapsed vertebra, not elsewhere classified, thoracic region, subsequent encounter for fracture with routine healing; K21.9 Gastro-esophageal reflux disease without esophagitis; I10 Essential (primary) hypertension; M19.90 Unspecified osteoarthritis, unspecified site; F32.9 Major depressive disorder, single episode, unspecified; E78.5 Hyperlipidemia, unspecified; M06.9 Rheumatoid arthritis, unspecified; F41.9 Anxiety disorder, unspecified; Z79.899 Other long term (current) drug therapy; Z86.14 Personal history of Methicillin resistant Staphylococcus aureus infection; Z90.49 Acquired absence of other specified parts of digestive tract; Z90.710 Acquired absence of both cervix and uterus; Z87.891 Personal history of nicotine dependence; Z88.0 Allergy status to penicillin; Z23 Encounter for immunization
CPT/HCPCS: 36415; 36600; 71010; 72148; 80048; 80053; 80307; 81001; 82140; 82150; 82550; 82803; 83690; 83735; 83880; 84439; 84443; 84484; 85025; 85610; 85730; 87040; 87070; 87077; 87086; 87088; 87186; 87205; 90686; 93005; 93010; 94640; 94660; 96365; 96375; 99291; J1170; J1650; J1956; J2060; J2405; J3475; J3490; J7030; J7050; J7620; J8499; S0119

== ENCOUNTER 2017-01-27 19:46 | Inpatient (IN) | payer MEDICARE, MEDICAID ==
[2017-01-27] MEDS ORDERED: ALBUTEROL SULFATE 0.083% NEB 2.5 MG/3 ML AMPUL NEB ONE (20:01)
[2017-01-27] MEDS ORDERED: IPRATROPIUM/ALBUTEROL 0.5-2.5 MG/3 ML AMPUL NEB ONE (20:07)
[2017-01-27] MEDS ORDERED: METHYLPREDNISOLONE INJ 125 MG/2 ML SDV ONE (20:07)
[2017-01-27] MEDS ORDERED: NORMAL SALINE 1000 ML 1,000 ML IV ONE ×3 (20:22→23:44)
--- NOTE | 2017-01-27 20:24 | RADIOLOGY REPORT (SQ) ---
EXAM DESCRIPTION: CHEST SINGLE VIEW COMPLETED DATE/TIME: 01/27/2017 8:10 pm REASON FOR STUDY: bed 14 db COMPARISON: 01/05/2017 EXAM PARAMETERS: NUMBER OF VIEWS: One view. TECHNIQUE: Single frontal radiographic view of the chest acquired. RADIATION DOSE: NA LIMITATIONS: None. FINDINGS: LUNGS AND PLEURA: There is some minimal increased density in the right lower lung field wh ich appears improved as compared to the previous study. I am uncertain as to whether this represents a resolving infiltrate or an acute process. Remaining lung gordon are clear. MEDIASTINUM AND HILAR STRUCTURES: No masses. Contour normal. HEART AND VASCULAR STRUCTURES: Heart normal in size. Normal vasculature. BONES: No acute findings. HARDWARE: Scattered surgical clips are again identified. OTHER: No other significant finding. IMPRESSION: Minimal right basilar density as noted above. Other findings as noted above TECHNICAL DOCUMENTATION: JOB ID: [id number]
--- NOTE | 2017-01-27 20:27 | ER Document Report ---
ED Respiratory Problem - General Mode of Arrival: Medic Information source: Emergency Med Personnel Cannot obtain history due to: Unstable vital signs, Altered mental status TRAVEL OUTSIDE OF THE [place] IN LAST 30 DAYS: No - HPI Patient complains to provider of: Other - respiratory distress Short of Breath: Severe <SIXTO BORJA - Last Filed: 01/27/17 21:32> <FAUSTINA MENJIVAR - Last Filed: 01/27/17 23:30> - General Chief Complaint: Shortness Of Breath Stated Complaint: TROUBLE BREATHING Time Seen by Provider: 01/27/17 19:54 Notes: Patient is a 71 year old female that presents to the emergency department today secondary to respiratory distress. EMS states they were called to [facility] secondary to shortness of breath. EMS states the patient was saturating at 84% on 2L of oxygen on arrival. Patient has a history of pneumonia and lung cancer. History is extremely limited secondary to the patient 's respiratory distress and altered mental status. (SIXTO BORJA) - Related Data Allergies/Adverse Reactions: Penicillins Allergy (Verified 08/23/16 14:32) Hives Past Medical History - General Information source: [facility] Records Cannot obtain history due to: Altered mental status - Social History Smoking Status: Smoker,Current Status Unk Frequency of alcohol use: None Drug Abuse: None Lives with: Family Family History: Arthritis, None, Reviewed & Not Pertinent - Past Medical History Cardiac Medical History: Reports: Hx Hypercholesterolemia, Hx Hypertension Pulmonary Medical History: Reports: Hx Asthma, Hx Bronchitis, Hx COPD, Hx Pneumonia, Hx Respiratory Failure Malignancy Medical History: Reports: Hx Lung Cancer GI Medical History: Reports: Hx Gastroesophageal Reflux Disease Musculoskeltal Medical History: Reports Hx Arthritis Psychiatric Medical History: Reports: Hx Anxiety, Hx Depression Infectious Medical History: Reports: Hx MRSA - History of MRSA pneumonia Past Surgical History: Reports: Hx Abdominal Surgery - gastric bypass, sbo, Hx Appendectomy, Hx Cholecystectomy, Hx Hysterectomy, Hx Orthopedic Surgery - Immunizations Immunizations up to date: Yes Hx Diphtheria, Pertussis, Tetanus Vaccination: No Hx Pneumococcal Vaccination: 04/14/12 <SIXTO BORJA - Last Filed: 01/27/17 21:32> Review of Systems - Review of Systems -: Yes ROS unobtainable due to patient's medical condition - minimally responsive <SIXTO BORJA - Last Filed: 01/27/17 21:32> - Vital signs Vitals: Resp Pulse Ox 13 100 01/27/17 20:03 01/27/17 20:03 Course - Laboratory Result Diagrams: 01/27/17 20:05 01/27/17 20:05 <SIXTO BORJA - Last Filed: 01/27/17 21:32> - Laboratory Result Diagrams: 01/27/17 20:05 01/27/17 20:05 <FAUSTINA MENJIVAR - Last Filed: 01/27/17 23:30> - Re-evaluation Re-evalutation: 01/27/17 20:[address] Grover who agrees to admit patient. (SIXTO BORJA) 01/27/17 23:29 Patient is a 71-year-old female with a history of end-stage COPD who comes in with difficulty breathing. EMS stated that the patient's oxygen level was in the 80s. Patient was given Solu-Medrol, nebulizer treatments, magnesium, and placed on BiPAP. Patient's initial blood pressure was 70/50. She has been given fluids. Patient is also been started on antibiotics for what looks like pneumonia on her chest x-ray. Patient was discussed with Dr. Grover who will admit the patient to the [facility]. Patient is unable to provide history. Dr. Grover states that the patient is to be DNR/DNI, which she decided during her last admission. (FAUSTINA MENJIVAR) - Vital Signs Vital signs: Temp Pulse Resp BP Pulse Ox 11 L 99/69 L 100 01/27/17 22:21 01/27/17 22:21 01/27/17 22:21 - Laboratory Laboratory results interpreted by me: 01/27/17 01/27/17 01/27/17 20:05 20:05 20:05 WBC 11.5 H RBC 2.95 L Hgb 8.6 L Hct 25.6 L RDW 18.1 H VBG pH Sodium 129.5 L Potassium 5.3 H BUN 34 H Creatinine 1.36 H Est GFR ( Amer) 46 L Est GFR (Non-Af Amer) 38 L Lactic Acid 0.6 L Direct Bilirubin 0.5 H Creatine Kinase 193 H Total Protein 6.0 L Albumin 3.1 L 01/27/17 20:05 WBC RBC Hgb Hct RDW VBG pH 7.28 L Sodium Potassium BUN Creatinine Est GFR ( Amer) Est GFR (Non-Af Amer) Lactic Acid Direct Bilirubin Creatine Kinase Total Protein Albumin Critical Care Note - Critical Care Note Total time excluding time spent on procedures (mins): 60 - Evaluation and management of respiratory distress, multiple re-evaluations, initiation of BiPAP , coordination of admission <FAUSTINA MENJIVAR - Last Filed: 01/27/17 23:30> Discharge <SIXTO BORJA - Last Filed: 01/27/17 21:32> - Discharge Admitting Provider: [facility] Unit Admitted: ICU <FAUSTINA MENJIVAR - Last Filed: 01/27/17 23:30> - Discharge Clinical Impression: Acute chronic obstructive pulmonary disease with respiratory distress, COPD exacerbation Pneumonia Qualifiers: Pneumonia type: due to unspecified organism Laterality: right Lung location: lower lobe of lung Qualified Code(s): J18.1 - Lobar pneumonia, unspecified organism Sepsis Qualifiers: Sepsis type: sepsis due to unspecified organism Qualified Code(s): A41.9 - Sepsis, unspecified organism Condition: Fair Disposition: ADMITTED INPATIENT Scribe Attestation: 01/27/17 23:30 I personally performed the services described in the documentation, reviewed and edited the documentation which was dictated to the scribe in my presence, and it accurately records my words and actions. (FAUSTINA MENJIVAR) Scribe Documentation - Scribe Written by Rubénibe:: Elia Nicolas, [id number] acting as scribe for :: Adina <SIXTO BORJA - Last Filed: 01/27/17 21:32>
[2017-01-27] MEDS ORDERED: CEFEPIME 1 GM/D5W RTU 1 GM/50 ML RTUPB IV ONE (20:28)
[2017-01-27] MEDS ORDERED: LEVOFLOXACIN 750 MG/D5W RTU 750 MG/150 ML RTUPB IV ONE (20:28)
[2017-01-27] MEDS ORDERED: VANCOMYCIN HCL INJ 1000 MG VIAL IV ONE (20:28)
[2017-01-27 20:31] LABS: ABSOLUTE BASOPHILS # (AUTO) 0.1 10^3/uL (0.0-0.2); ABSOLUTE EOSINOPHILS # (AUTO) 0.3 10^3/uL (0.0-0.6); ABSOLUTE LYMPHOCYTES (AUTO) 3.2 10^3/uL (0.5-4.7); ABSOLUTE MONOCYTES (AUTO) 1.4 10^3/uL (0.1-1.4); ABSOLUTE NEUT (AUTO) 6.6 10^3/uL (1.7-8.2); BASOPHILS % (AUTO) 0.5 % (0-2); EOSINOPHILS % (AUTO) 2.6 % (0-6); HEMATOCRIT 25.6 % (36.0-47.0); HEMOGLOBIN 8.6 g/dL (12.0-15.5); HGB HCT DIFFERENCE 0.2; LYMPHOCYTES % (AUTO) 27.7 % (13-45); MEAN CORPUSCULAR HEMOGLOBIN 29.1 pg (27.0-33.4); MEAN CORPUSCULAR HGB CONC 33.5 g/dL (32.0-36.0); MEAN CORPUSCULAR VOLUME 87 fl (80-97); MONOCYTES % (AUTO) 12.5 % (3-13); RED BLOOD COUNT 2.95 10^6/uL (3.72-5.28); RED CELL DISTRIBUTION WIDTH 18.1 % (11.5-14.0); SEGMENTED NEUTROPHILS % (AUTO) 56.7 % (42-78); WHITE BLOOD COUNT 11.5 10^3/uL (4.0-10.5)
[2017-01-27 20:33] LABS: VENOUS BLOOD BASE EXCESS -3.7 mmol/L; VENOUS BLOOD HCO3 23.5 mmol/L (20-32); VENOUS BLOOD PCO2 51.5 mmHg (35-63); VENOUS BLOOD PH 7.28 (7.30-7.42)
[2017-01-27 20:47] LABS: ALANINE AMINOTRANSFERASE 26 U/L (9-52); ALBUMIN 3.1 g/dL (3.5-5.0); ALKALINE PHOSPHATASE 83 U/L (38-126); ANION GAP 10 (5-19); ASPARTATE AMINO TRANSFERASE 23 U/L (14-36); BILIRUBIN,DIRECT 0.5 mg/dL (0.0-0.4); BILIRUBIN,TOTAL 0.5 mg/dL (0.2-1.3); BLOOD UREA NITROGEN 34 mg/dL (7-20); CALCIUM 9.2 mg/dL (8.4-10.2); CARBON DIOXIDE 22 mmol/L (22-30); CHLORIDE 98 mmol/L (98-107); CREATINE KINASE 193 U/L (30-135); CREATININE RESULT 1.36 mg/dL (0.52-1.25); GLUCOSE 77 mg/dL (75-110); POTASSIUM 5.3 mmol/L (3.6-5.0); SODIUM 129.5 mmol/L (137-145)
[2017-01-27 20:59] LABS: CREATINE KINASE MB 4.07 ng/mL (<4.55); TROPONIN I 0.024 ng/mL
[2017-01-27] MEDS: MAGNESIUM SULFATE/D5W 1 GM/100 ML RTUPB IV SCH (21:10)
--- NOTE | 2017-01-27 23:59 | EKG REPORT ---
SEVERITY:- ABNORMAL ECG - SINUS RHYTHM FIRST DEGREE AV BLOCK RIGHT VENTRICULAR HYPERTROPHY PROBABLE INFERIOR INFARCT, OLD : Confirmed by: Latoya Vasquez 27-Jan-2017 23:58:45
[2017-01-28] MEDS: MAGNESIUM SULFATE/D5W 1 GM/100 ML RTUPB IV SCH (02:48)
[2017-01-28] MEDS: OXYCODONE HCL IR 5 MG TABLET PO PRN ×3 (03:26→16:12)
[2017-01-28] MEDS: ACETAMINOPHEN 325 MG TABLET PO PRN (03:26)
[2017-01-28] MEDS: NORMAL SALINE 1000 ML 1,000 ML IV PRN (08:02)
[2017-01-28] MEDS: IPRATROPIUM/ALBUTEROL 0.5-2.5 MG/3 ML AMPUL NEB PRN ×4 (10:48→23:39)
[2017-01-28] MEDS ORDERED: (PENDING PHARMACY ID) (Menthol [Biofreeze] 1 APPLIC) TP PRN (20:30)
[2017-01-28] MEDS ORDERED: (PENDING PHARMACY ID) (Multivitamin With Minerals [One Daily Plus Minerals] 1 EACH) PO SCH (20:30)
[2017-01-28] MEDS ORDERED: (PENDING PHARMACY ID) (Oxycodone Hcl/Acetaminophen [Percocet 10-325 Mg Tablet] 1 EACH) PO PRN (20:30)
[2017-01-28] MEDS ORDERED: OXYCODONE-ACETAMINOPHEN 5-325 MG TABLET PO PRN (20:38)
[2017-01-28] MEDS ORDERED: OXYCODONE HCL IR 5 MG TABLET PO PRN (20:38)
[2017-01-28] MEDS ORDERED: ALBUTEROL SULFATE HFA (90 MCG/PUFF) 200 PUFF/8.5 GM MDI IH PRN (20:45)
--- NOTE | 2017-01-28 20:55 | PDOC H&P ---
History of Present Illness Admission Date/PCP: 01/28/17 03:42 NATACHA ENGLAND MD History of Present Illness: HUNTER GRANADOS is a 71 year old female.She has end-stage COPD, multiple hospitalization,recently discharge on 01/16/2017, resident of the group home at [place]. She was transferred from the group home to the emergency room because of respiratory distress. In the Emergency room chest x-ray was done that showed improvement compared to previous x-ray, she was found to have low blood pressure that was associated leukocytosis. Patient also have lung cancer that has not been treated because of multiple intercurrent illnesses that prevent treatment of the lung cancer ,was diagnosed over a year ago. She has history of osteoporotic fracture of the spine ,overall prognosis is very poor. She was advised previously of hospice option or palliative care she declined both options that was made available to her. Past Medical History Cardiac Medical History: Reports: Hyperlipidema, Hypertension Pulmonary Medical History: Reports: Asthma, Bronchitis, Chronic Obstructive Pulmonary Disease (COPD), Pneumonia, Respiratory Failure Malignancy Medical History: Reports: Lung Cancer GI Medical History: Reports: Gastroesophageal Reflux Disease Musculoskeltal Medical History: Reports: Arthritis Psychiatric Medical History: Reports: Depression Hematology: Reports: Anemia Infectious Medical History: Reports: 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 Past Surgical History Past Surgical History: Reports: Appendectomy, Cholecystectomy, Hysterectomy, Orthopedic Surgery Social History Lives with: Family Smoking Status: Former Smoker Frequency of Alcohol Use: None Hx Recreational Drug Use: No Drugs: None Hx Prescription Drug Abuse: No Family History Family History: Arthritis, None, Reviewed & Not Pertinent Parental Family History Reviewed: Yes Children Family History Reviewed: Yes Sibling(s) Family History Reviewed.: Yes Medication/Allergy Home Medications: RX: Methocarbamol [Robaxin 500 mg Tablet] 500 mg PO BID #10 tablet 12/26/16 RX: Albuterol Sulfate [Proair HFA] 2 puff IH Q4HP PRN 12/31/16 RX: Amlodipine Besylate [Norvasc 5 mg Tablet] 5 mg PO DAILY 12/31/16 RX: Atorvastatin Calcium [Lipitor 10 mg Tablet] 10 mg PO QHS 12/31/16 RX: Budesonide/Formoterol Fumarate [Symbicort HFA 160-4.5 mcg Inhaler 6 gm] 1 puff IH Q12 12/31/16 RX: Citalopram Hydrobromide [Celexa 20 mg Tablet] 20 mg PO DAILY 12/31/16 RX: Clonidine HCl [Catapres 0.1 mg Tablet] 0.1 mg PO Q12 12/31/16 RX: Ergocalciferol (Vitamin D2) [Drisdol 50,000 unit (1.25MG) Capsule] 50,000 unit PO [id number] 12/31/16 RX: Ferrous Sulfate [Feosol 325 mg Tablet] 325 mg PO DAILY 12/31/16 RX: Ipratropium/Albuterol Sulfate [Duoneb 3 ml Ampul] 3 ml NEB [id number] PRN RX: Levocetirizine Dihydrochloride [Xyzal] 5 mg PO QHS 12/31/16 RX: Losartan Potassium [Cozaar 100 mg Tablet] 100 mg PO DAILY 12/31/16 RX: Mirtazapine [Remeron 15 mg Tablet] 7.5 mg PO QHS 12/31/16 RX: Omeprazole 40 mg PO QAM 12/31/16 RX: Oxycodone HCl/Acetaminophen [Percocet 10-325 mg Tablet] 1 each PO TIDP PRN 12/31/16 RX: Pregabalin [Lyrica 75 mg Capsule] 75 mg PO Q8 12/31/16 RX: Tiotropium Dragoon [Spiriva Handihaler 18 mcg/dose (30 Dose)] 1 cap IH DAILY 12/31/16 Menthol [Biofreeze] 1 applic TP QIDP PRN 01/28/17 Multivitamin with Minerals [One Daily Plus Minerals] 1 each PO DAILY 01/28/17 Allergies/Adverse Reactions: Penicillins Allergy (Verified 08/23/16 14:32) Hives Review of Systems Constitutional: PRESENT: fatigue Eyes: ABSENT: visual disturbances Ears: ABSENT: hearing changes Cardiovascular: ABSENT: chest pain, dyspnea on exertion, edema, orthropnea, palpitations Respiratory: PRESENT: cough, dyspnea Gastrointestinal: ABSENT: abdominal pain, constipation, diarrhea, hematemesis, hematochezia, nausea, vomiting Genitourinary: ABSENT: dysuria, hematuria Musculoskeletal: ABSENT: joint swelling Integumentary: ABSENT: rash, wounds Neurological: ABSENT: abnormal gait, abnormal speech, confusion, dizziness, focal weakness, syncope Psychiatric: ABSENT: anxiety, depression, homidical ideation, suicidal ideation Endocrine: ABSENT: cold intolerance, heat intolerance, menstrual abnormalities, polydipsia, polyuria Hematologic/Lymphatic: ABSENT: easy bleeding, easy bruising, lymphadenopathy Physical Exam Vital Signs: Temp Pulse Resp BP Pulse Ox 97.6 F 117 H 22 H 143/79 H 100 01/28/17 17:01 01/28/17 17:01 01/28/17 17:01 01/28/17 17:01 01/28/17 17:01 Intake & Output 01/27/17 01/28/17 01/29/17 06:59 06:59 06:59 Intake Total 1000 790 Balance 1000 790 Weight 75 kg General appearance: PRESENT: mild distress Eye exam: PRESENT: conjunctiva pink, EOMI, PERRLA Ear exam: PRESENT: normal external ear exam Mouth exam: PRESENT: moist, tongue midline Neck exam: PRESENT: full ROM Respiratory exam: PRESENT: wheezes Cardiovascular exam: PRESENT: RRR, +S1, +S2 Pulses: PRESENT: normal dorsalis pedis pul, +2 pedal pulses bilateral Vascular exam: PRESENT: normal capillary refill GI/Abdominal exam: PRESENT: normal bowel sounds, soft Rectal exam: PRESENT: deferred Neurological exam: PRESENT: alert, CN II-XII grossly intact Skin exam: PRESENT: dry, intact, warm Results Impressions: Chest X-Ray 01/27/17 19:51 IMPRESSION: Minimal right basilar density as noted above. Other findings as noted above Assessment & Plan - Diagnosis (1) Acute respiratory failure Qualifiers: Respiratory failure complication: unspecified whether with hypoxia or hypercapnia Qualified Code(s): J96.00 - Acute respiratory failure, unspecified whether with hypoxia or hypercapnia Is this a current diagnosis for this admission?: Yes Plan: She is requiring BiPAP to breathe she has end-stage COPD she is a DNR status poor prognosis (2) Chronic obstructive pulmonary disease with (acute) exacerbation Is this a current diagnosis for this admission?: Yes Plan: She has severe osteoporosis with supportive fracture she will not be given IV Solu-Medrol ,she be treated with Symbicort (3) Squamous cell carcinoma of lung, stage I Qualifiers: Laterality: left Qualified Code(s): C34.92 - Malignant neoplasm of unspecified part of left bronchus or lung Is this a current diagnosis for this admission?: Yes
[2017-01-28 21:00] LABS: ARTERIAL BLOOD O2 SATURATION 97.8 % (94-98)
[2017-01-28] MEDS ORDERED: MULTIVITAMIN TABLET PO ONE (21:00)
[2017-01-28] MEDS: FERROUS SULFATE 325 MG TABLET PO SCH (21:19)
[2017-01-28] MEDS: CITALOPRAM HYDROBROMIDE 20 MG TABLET PO SCH (21:19)
[2017-01-28 21:26] LABS: HEMATOCRIT 28.6 % (36.0-47.0); HEMOGLOBIN 9.6 g/dL (12.0-15.5); HGB HCT DIFFERENCE 0.2; MEAN CORPUSCULAR HEMOGLOBIN 29.7 pg (27.0-33.4); MEAN CORPUSCULAR HGB CONC 33.4 g/dL (32.0-36.0); MEAN CORPUSCULAR VOLUME 89 fl (80-97); RED BLOOD COUNT 3.22 10^6/uL (3.72-5.28); RED CELL DISTRIBUTION WIDTH 18.1 % (11.5-14.0); WHITE BLOOD COUNT 11.3 10^3/uL (4.0-10.5)
[2017-01-28] MEDS ORDERED: AMLODIPINE BESYLATE 5 MG TABLET PO ONE (21:30)
[2017-01-28 21:36] LABS: PARTIAL THROMBOPLASTIN TIME 37.8 SEC (23.5-35.8)
[2017-01-28 21:52] LABS: CREATININE RESULT 1.13 mg/dL (0.52-1.25)
[2017-01-28] MEDS ORDERED: BUDESONIDE/FORMOTEROL 160-4.5 MCG 60 PUFF/6 GM MDI IH ONE (22:26)
[2017-01-28] MEDS ORDERED: TIOTROPIUM BROMIDE DPI 5 CAP/KIT (18 MCG/CAP) IH ONE (22:26)
[2017-01-28] MEDS: BUDESONIDE/FORMOTEROL 160-4.5 MCG 60 PUFF/6 GM MDI IH SCH (23:59)
[2017-01-28] MEDS: PREGABALIN 75 MG CAPSULE PO SCH (23:59)
[2017-01-28] MEDS: TIOTROPIUM BROMIDE DPI 5 CAP/KIT (18 MCG/CAP) IH SCH (23:59)
[2017-01-29] MEDS: OXYCODONE HCL IR 5 MG TABLET PO PRN ×3 (00:36→19:14)
[2017-01-29] MEDS: PREGABALIN 75 MG CAPSULE PO SCH ×3 (05:58→21:29)
[2017-01-29] MEDS: IPRATROPIUM/ALBUTEROL 0.5-2.5 MG/3 ML AMPUL NEB PRN ×3 (06:00→14:32)
[2017-01-29] MEDS: MULTIVITAMIN TABLET PO SCH (09:25)
[2017-01-29] MEDS: AMLODIPINE BESYLATE 5 MG TABLET PO SCH (09:25)
[2017-01-29] MEDS: ENOXAPARIN SODIUM INJ 30 MG/0.3 ML DISP.SYRIN SUBCUT SCH (09:26)
[2017-01-29] MEDS ORDERED: ENOXAPARIN SODIUM INJ 40 MG/0.4 ML DISP.SYRIN SUBCUT SCH (10:00)
[2017-01-29] MEDS: LANSOPRAZOLE 30 MG TAB.RAP.DR PO SCH (11:31)
[2017-01-29] MEDS: BUDESONIDE/FORMOTEROL 160-4.5 MCG 60 PUFF/6 GM MDI IH SCH ×2 (11:32→21:31)
[2017-01-29] MEDS ORDERED: METHOCARBAMOL 500 MG TABLET PO SCH (14:00)
[2017-01-29] MEDS ORDERED: ERGOCALCIFEROL (VITAMIN D2) 50000 UNIT (1.25 MG) CAPSULE PO SCH (14:00)
--- NOTE | 2017-01-29 17:01 | PDOC PROGRESS REPORT ---
Subjective Progress Note for:: 01/29/17 Subjective:: Patient was seen by the bedside she continues to require noninvasive positive pressure ventilation with BiPAP Physical Exam Vital Signs: Temp Pulse Resp BP Pulse Ox 97.9 F 103 H 15 136/74 H 100 01/29/17 10:58 01/29/17 14:32 01/29/17 14:32 01/29/17 10:58 01/29/17 10:58 Intake & Output 01/28/17 01/29/17 01/30/17 06:59 06:59 06:59 Intake Total 1000 990 237 Balance 1000 990 237 Weight 75 kg General appearance: PRESENT: mild distress Eye exam: PRESENT: PERRLA Respiratory exam: PRESENT: wheezes Cardiovascular exam: PRESENT: +S1, +S2 GI/Abdominal exam: PRESENT: soft Neurological exam: PRESENT: alert Results Laboratory Results: 01/28/17 21:18 01/28/17 21:18 01/28/17 01/28/17 01/28/17 20:45 21:18 21:18 WBC 11.3 H RBC 3.22 L Hgb 9.6 L Hct 28.6 L MCV 89 MCH 29.7 MCHC 33.4 RDW 18.1 H Plt Count 294 Carbonic Acid 1.21 HCO3/H2CO3 Ratio 15:1 ABG pH 7.28 L ABG pCO2 40.1 ABG pO2 117.9 H ABG HCO3 18.2 L ABG O2 Saturation 97.8 ABG Base Excess -8.0 FiO2 30% Creatinine 1.13 Est GFR ( Amer) 57 L Est GFR (Non-Af Amer) 47 L Impressions: Chest X-Ray 01/27/17 19:51 IMPRESSION: Minimal right basilar density as noted above. Other findings as noted above Assessment & Plan - Diagnosis (1) Acute respiratory failure Qualifiers: Respiratory failure complication: unspecified whether with hypoxia or hypercapnia Qualified Code(s): J96.00 - Acute respiratory failure, unspecified whether with hypoxia or hypercapnia Is this a current diagnosis for this admission?: Yes (2) Chronic obstructive pulmonary disease with (acute) exacerbation Is this a current diagnosis for this admission?: Yes (3) Squamous cell carcinoma of lung, stage I Qualifiers: Laterality: left Qualified Code(s): C34.92 - Malignant neoplasm of unspecified part of left bronchus or lung Is this a current diagnosis for this admission?: Yes
[2017-01-29] MEDS: METHOCARBAMOL 500 MG TABLET PO SCH (17:45)
[2017-01-29] MEDS: ATORVASTATIN CALCIUM 10 MG TABLET PO SCH (21:29)
[2017-01-29] MEDS: FERROUS SULFATE 325 MG TABLET PO SCH (21:30)
[2017-01-29] MEDS: CITALOPRAM HYDROBROMIDE 20 MG TABLET PO SCH (21:30)
[2017-01-29] MEDS: CETIRIZINE 5 MG TABLET PO SCH (21:30)
[2017-01-29] MEDS: LEVOFLOXACIN 750 MG TABLET PO SCH (21:31)
[2017-01-29] MEDS: TIOTROPIUM BROMIDE DPI 5 CAP/KIT (18 MCG/CAP) IH SCH (21:31)
[2017-01-30] MEDS: ACETAMINOPHEN 325 MG TABLET PO PRN ×2 (00:41→12:01)
[2017-01-30] MEDS: OXYCODONE HCL IR 5 MG TABLET PO PRN ×2 (03:28→09:54)
[2017-01-30] MEDS: PREGABALIN 75 MG CAPSULE PO SCH ×3 (06:59→23:10)
--- NOTE | 2017-01-30 09:32 | Physician Advisory Note ---
Physician Advisor ProgressNote .: [facility], I have reviewed the medical record for this patient. Physician Advisor Statement: Good job documentating Ac Resp Failure! [Pt w/sat 80s on 2L & (+)accessory muscle use initially, needing Bipap x days.] Please consider documenting, if you agree: 1. "Acute Bronchitis", or "Possible RLL Pneumonia, suspect ___ bacteria ..." [ what tx'ing with Levaquin] -Bacteria: Gram Negative given COPD? GPC, based on BC? ] 2. ? - "possible sepsis, present on adm, due to above, evidenced by ARF, lethargy w/GCS 13, hypotension w/MAP 50s-70s, (+)acute metabolic acidosis, tachycardia, tachypnea, leukocytosis, & (+)BC" [list what you believe are likely due to sepsis & not caused by something else] 3. "Acute Renal Failure, suspect due to " [sepsis?, intravascular volume depletion?, ...] - (Cr baseline 0.8-0.9, was 1.36 on arrival) 4. "Acute hyponatremia, likely due to " [intravascular volume depletion? ... ] Thanks! CK
[2017-01-30] MEDS: METHOCARBAMOL 500 MG TABLET PO SCH ×2 (09:50→18:02)
[2017-01-30] MEDS: LOSARTAN POTASSIUM 50 MG TABLET PO SCH (09:51)
[2017-01-30] MEDS: MULTIVITAMIN TABLET PO SCH (09:51)
[2017-01-30] MEDS: LANSOPRAZOLE 30 MG TAB.RAP.DR PO SCH (09:51)
[2017-01-30] MEDS: ENOXAPARIN SODIUM INJ 30 MG/0.3 ML DISP.SYRIN SUBCUT SCH (09:51)
[2017-01-30] MEDS: AMLODIPINE BESYLATE 5 MG TABLET PO SCH (09:51)
[2017-01-30] MEDS: BUDESONIDE/FORMOTEROL 160-4.5 MCG 60 PUFF/6 GM MDI IH SCH ×2 (09:57→23:11)
[2017-01-30] MEDS: IPRATROPIUM/ALBUTEROL 0.5-2.5 MG/3 ML AMPUL NEB PRN (13:40)
[2017-01-30] MEDS ORDERED: LIDOCAINE 1% INJ-PF (10 MG/ML) 30 ML SDV ONE (18:24)
--- NOTE | 2017-01-30 21:15 | Operative Report ---
Operative Report DATE OF SURGERY: 01/30/17 PREOPERATIVE DIAGNOSIS: Critical need for central venous access. Pulmonary insufficiency. POSTOPERATIVE DIAGNOSIS: Critical need for central venous access. Pulmonary insufficiency. OPERATION: Attempted right subclavian central venous catheter placement. Right femoral triple-lumen central venous catheter placement. SURGEON: DUANE LANCASTER ANESTHESIA: Local TISSUE REMOVED OR ALTERED: None COMPLICATIONS: None ESTIMATED BLOOD LOSS: Minimal INTRAOPERATIVE FINDINGS: Able to cannulate the right subclavian vein but unable to place guidewire. PROCEDURE: Informed consent was obtained. Procedure was done at the patient's bedside. Patient's right neck and chest was prepped and draped in usual sterile fashion. Local anesthetic was administered. The right subclavian vein was entered without difficulty however aspirating blood was intermittent varying with respirations. Despite multiple technical measures I could not thread the guidewire. With this finding the target site was changed to the right femoral vein. Patient's right groin was prepped and draped in usual sterile fashion. Local anesthetic was administered. The right femoral vein was entered and triple-lumen central venous catheter was placed via the Seldinger technique. It withdrew blood and flushed easily. It was sutured in place and dressings were applied. With the attempt at the subclavian site a stat portable chest x- ray was ordered. Patient tolerated procedure well with no apparent complications.
--- NOTE | 2017-01-30 22:14 | PDOC PROGRESS REPORT ---
Subjective Progress Note for:: 01/30/17 Subjective:: Patient's condition is very poor, the blood pressure is low, consultation requested from surgery for central line Physical Exam Vital Signs: Temp Pulse Resp BP Pulse Ox 97.5 F 104 H 24 H 106/70 99 01/30/17 21:30 01/30/17 21:30 01/30/17 21:30 01/30/17 21:30 01/30/17 21:30 Intake & Output 01/29/17 01/30/17 01/31/17 06:59 06:59 06:59 Intake Total 990 537 444 Balance 990 537 444 Weight 82.1 kg General appearance: PRESENT: severe distress Respiratory exam: PRESENT: wheezes Cardiovascular exam: PRESENT: +S1, +S2 GI/Abdominal exam: PRESENT: soft Neurological exam: PRESENT: alert Results Laboratory Results: 01/28/17 21:18 01/28/17 21:18 Assessment & Plan - Diagnosis (1) Acute respiratory failure Qualifiers: Respiratory failure complication: unspecified whether with hypoxia or hypercapnia Qualified Code(s): J96.00 - Acute respiratory failure, unspecified whether with hypoxia or hypercapnia Is this a current diagnosis for this admission?: Yes (2) Chronic obstructive pulmonary disease with (acute) exacerbation Is this a current diagnosis for this admission?: Yes Plan: Start patient on Solu-Medrol (3) Squamous cell carcinoma of lung, stage I Qualifiers: Laterality: left Qualified Code(s): C34.92 - Malignant neoplasm of unspecified part of left bronchus or lung Is this a current diagnosis for this admission?: Yes (4) Hypotension Qualifiers: Hypotension type: unspecified hypotension type Qualified Code(s): I95.9 - Hypotension, unspecified Is this a current diagnosis for this admission?: Yes Plan: Start IV fluid
[2017-01-30] MEDS ORDERED: METHYLPREDNISOLONE INJ 125 MG/2 ML SDV IV ONE (22:30)
--- NOTE | 2017-01-30 22:39 | RADIOLOGY REPORT (SQ) ---
EXAM DESCRIPTION: CHEST SINGLE VIEW COMPLETED DATE/TIME: 01/30/2017 10:15 pm REASON FOR STUDY: Attempted central line placement COMPARISON: 01/27/2017 EXAM PARAMETERS: NUMBER OF VIEWS: One view. TECHNIQUE: Single frontal radiographic view of the chest acquired. RADIATION DOSE: NA LIMITATIONS: None. FINDINGS: LUNGS AND PLEURA: No acute opacities. No pneumothorax. No pleural effusion. Similar nodu larity in the left mid lung and subsegmental atelectasis in the right lung base. MEDIASTINUM AND HILAR STRUCTURES: Stable. HEART AND VASCULAR STRUCTURES: Stable. BONES: No acute findings. HARDWARE: None in the chest. OTHER: No other significant finding. IMPRESSION: NO ACUTE RADIOGRAPHIC FINDING IN THE CHEST. TECHNICAL DOCUMENTATION: JOB ID: [id number]
--- NOTE | 2017-01-30 22:40 | RADIOLOGY REPORT (SQ) ---
EXAM DESCRIPTION: KUB/ABDOMEN (SINGLE VIEW) COMPLETED DATE/TIME: 01/30/2017 10:15 pm REASON FOR STUDY: Right Femoral central line catheter placement COMPARISON: None. NUMBER OF VIEWS: One view. TECHNIQUE: Supine radiographic image of the abdomen acquired. LIMITATIONS: None. FINDINGS: BOWEL GAS PATTERN: Nonspecific bowel gas pattern. No dilated loops. Moderate stool burden . CALCIFICATIONS: No suspicious calcifications. SOFT TISSUES: No gross mass or suggestion of organomegaly. HARDWARE: Right femoral central venous catheter with tip overlying the right common iliac vein at the L5 right spinous process level. BONES: No acute fracture. OTHER: No other significant finding. IMPRESSION: Right femoral central venous catheter with tip overlying the right common iliac vein at the L5 right spinous process level. NO RADIOGRAPHIC EVIDENCE FOR ACUTE ABDOMINAL DISEASE. TECHNICAL DOCUMENTATION: JOB ID: [id number] [employer]- All Rights Reserved
[2017-01-30] MEDS: FERROUS SULFATE 325 MG TABLET PO SCH (23:09)
[2017-01-30] MEDS: TIOTROPIUM BROMIDE DPI 5 CAP/KIT (18 MCG/CAP) IH SCH (23:09)
[2017-01-30] MEDS: CITALOPRAM HYDROBROMIDE 20 MG TABLET PO SCH (23:10)
[2017-01-30] MEDS: CETIRIZINE 5 MG TABLET PO SCH (23:10)
[2017-01-30] MEDS: ATORVASTATIN CALCIUM 10 MG TABLET PO SCH (23:10)
[2017-01-31] MEDS: PREGABALIN 75 MG CAPSULE PO SCH ×3 (05:52→21:20)
[2017-01-31] MEDS: METHYLPREDNISOLONE INJ 125 MG/2 ML SDV IV SCH ×3 (05:52→21:18)
[2017-01-31] MEDS: NORMAL SALINE 1000 ML 1,000 ML IV PRN ×2 (06:48→18:05)
[2017-01-31] MEDS: IPRATROPIUM/ALBUTEROL 0.5-2.5 MG/3 ML AMPUL NEB PRN (08:10)
[2017-01-31] MEDS: METHOCARBAMOL 500 MG TABLET PO SCH ×2 (10:07→18:05)
[2017-01-31] MEDS: AMLODIPINE BESYLATE 5 MG TABLET PO SCH (10:07)
[2017-01-31] MEDS: MULTIVITAMIN TABLET PO SCH (10:07)
[2017-01-31] MEDS: LOSARTAN POTASSIUM 50 MG TABLET PO SCH (10:07)
[2017-01-31] MEDS: LANSOPRAZOLE 30 MG TAB.RAP.DR PO SCH (10:13)
[2017-01-31] MEDS: ENOXAPARIN SODIUM INJ 30 MG/0.3 ML DISP.SYRIN SUBCUT SCH (10:13)
[2017-01-31] MEDS: BUDESONIDE/FORMOTEROL 160-4.5 MCG 60 PUFF/6 GM MDI IH SCH ×2 (10:14→21:22)
--- NOTE | 2017-01-31 20:57 | PDOC PROGRESS REPORT ---
Subjective Progress Note for:: 01/31/17 Subjective:: She has end-stage COPD, yesterday she was started on IV Solu-Medrol, she seems improved today compared to yesterday. I tried to avoid intravenous Solu-Medrol in this patient s,he has severe osteoporotic spine fracture. Overall prognosis remains poor in this patient she also has lung cancer Physical Exam Vital Signs: Temp Pulse Resp BP Pulse Ox 98.1 F 98 18 115/62 96 01/31/17 20:16 01/31/17 20:16 01/31/17 20:38 01/31/17 20:16 01/31/17 20:38 Intake & Output 01/30/17 01/31/17 02/01/17 06:59 06:59 06:59 Intake Total 258 204 8882 Output Total 0 Balance 297 617 6010 Weight 78.9 kg General appearance: PRESENT: mild distress Head exam: PRESENT: atraumatic, normocephalic Eye exam: PRESENT: PERRLA. ABSENT: scleral icterus Mouth exam: PRESENT: moist, tongue midline Neck exam: PRESENT: full ROM Respiratory exam: PRESENT: wheezes Cardiovascular exam: PRESENT: RRR, +S1, +S2 Vascular exam: PRESENT: normal capillary refill GI/Abdominal exam: PRESENT: normal bowel sounds, soft Rectal exam: PRESENT: deferred Neurological exam: PRESENT: alert Skin exam: ABSENT: cyanosis, rash Results Laboratory Results: 01/28/17 21:18 01/28/17 21:18 Impressions: Chest X-Ray 01/30/17 00:00 IMPRESSION: NO ACUTE RADIOGRAPHIC FINDING IN THE CHEST. KUB X-Ray 01/30/17 21:19 IMPRESSION: Right femoral central venous catheter with tip overlying the right common iliac vein at the L5 right spinous process level. NO RADIOGRAPHIC EVIDENCE FOR ACUTE ABDOMINAL DISEASE. Assessment & Plan - Diagnosis (1) Acute respiratory failure Qualifiers: Respiratory failure complication: unspecified whether with hypoxia or hypercapnia Qualified Code(s): J96.00 - Acute respiratory failure, unspecified whether with hypoxia or hypercapnia Is this a current diagnosis for this admission?: Yes (2) Chronic obstructive pulmonary disease with (acute) exacerbation Is this a current diagnosis for this admission?: Yes (3) Squamous cell carcinoma of lung, stage I Qualifiers: Laterality: left Qualified Code(s): C34.92 - Malignant neoplasm of unspecified part of left bronchus or lung Is this a current diagnosis for this admission?: Yes (4) Hypotension Qualifiers: Hypotension type: unspecified hypotension type Qualified Code(s): I95.9 - Hypotension, unspecified Is this a current diagnosis for this admission?: Yes - Plan Summary Plan Summary: She will continue present treatment
[2017-01-31] MEDS: ATORVASTATIN CALCIUM 10 MG TABLET PO SCH (21:19)
[2017-01-31] MEDS: LEVOFLOXACIN 750 MG TABLET PO SCH (21:19)
[2017-01-31] MEDS: FERROUS SULFATE 325 MG TABLET PO SCH (21:19)
[2017-01-31] MEDS: CITALOPRAM HYDROBROMIDE 20 MG TABLET PO SCH (21:19)
[2017-01-31] MEDS: CETIRIZINE 5 MG TABLET PO SCH (21:20)
[2017-01-31] MEDS: TIOTROPIUM BROMIDE DPI 5 CAP/KIT (18 MCG/CAP) IH SCH (21:20)
[2017-02-01] MEDS: NORMAL SALINE 1000 ML 1,000 ML IV PRN ×2 (03:49→18:40)
[2017-02-01] MEDS: METHYLPREDNISOLONE INJ 125 MG/2 ML SDV IV SCH ×3 (05:25→21:31)
[2017-02-01] MEDS: PREGABALIN 75 MG CAPSULE PO SCH ×3 (05:25→21:31)
[2017-02-01 06:11] LABS: ANION GAP 12 (5-19); BLOOD UREA NITROGEN 27 mg/dL (7-20); CALCIUM 8.2 mg/dL (8.4-10.2); CARBON DIOXIDE 22 mmol/L (22-30); CHLORIDE 111 mmol/L (98-107); CREATININE RESULT 0.95 mg/dL (0.52-1.25); GLUCOSE 126 mg/dL (75-110); POTASSIUM 4.5 mmol/L (3.6-5.0); SODIUM 145.1 mmol/L (137-145)
[2017-02-01] MEDS: IPRATROPIUM/ALBUTEROL 0.5-2.5 MG/3 ML AMPUL NEB PRN ×2 (08:16→14:26)
--- NOTE | 2017-02-01 10:35 | PDOC PROGRESS REPORT ---
Subjective Progress Note for:: 02/01/17 Subjective:: Patient is currently doing same currently on a BiPAP. Patient's denied any chest pain denied any shortness of the breath. Patient still have a wheezing. Patient's, no fever. Patient have a positive bowel movement Physical Exam Vital Signs: Temp Pulse Resp BP Pulse Ox 98.9 F 95 20 156/88 H 96 02/01/17 08:06 02/01/17 08:16 02/01/17 08:16 02/01/17 08:06 02/01/17 08:16 Intake & Output 01/31/17 02/01/17 02/02/17 06:59 06:59 06:59 Intake Total 777 2374 Output Total 0 0 Balance 777 2374 Weight 78.9 kg 75.9 kg General appearance: PRESENT: no acute distress Eye exam: PRESENT: conjunctival injection, PERRLA Mouth exam: PRESENT: dry mucosa Respiratory exam: PRESENT: rhonchi, wheezes Cardiovascular exam: PRESENT: +S1, +S2 GI/Abdominal exam: PRESENT: normal bowel sounds, soft Extremities exam: ABSENT: pedal edema Neurological exam: PRESENT: alert Results Laboratory Results: 01/28/17 21:18 02/01/17 04:25 02/01/17 04:25 Sodium 145.1 H Potassium 4.5 Chloride 111 H Carbon Dioxide 22 Anion Gap 12 BUN 27 H Creatinine 0.95 Est GFR ( Amer) > 60 Est GFR (Non-Af Amer) 58 L Glucose 126 H Calcium 8.2 L Impressions: Chest X-Ray 01/30/17 00:00 IMPRESSION: NO ACUTE RADIOGRAPHIC FINDING IN THE CHEST. KUB X-Ray 01/30/17 21:19 IMPRESSION: Right femoral central venous catheter with tip overlying the right common iliac vein at the L5 right spinous process level. NO RADIOGRAPHIC EVIDENCE FOR ACUTE ABDOMINAL DISEASE. Assessment & Plan - Diagnosis (1) Acute chronic obstructive pulmonary disease with respiratory distress Is this a current diagnosis for this admission?: Yes Plan: Continues a nebulizer treatments decrease the IV steroid (2) COPD exacerbation Is this a current diagnosis for this admission?: Yes (3) Pneumonia Qualifiers: Pneumonia type: due to unspecified organism Laterality: right Lung location: lower lobe of lung Qualified Code(s): J18.1 - Lobar pneumonia, unspecified organism Is this a current diagnosis for this admission?: Yes Plan: IV antibiotic (4) Sepsis Qualifiers: Sepsis type: sepsis due to unspecified organism Qualified Code(s): A41.9 - Sepsis, unspecified organism Is this a current diagnosis for this admission?: Yes Plan: Continues to antibiotic (5) End stage COPD Is this a current diagnosis for this admission?: Yes Plan: Patient is currently on a BiPAP (6) Hypertension Qualifiers: Hypertension type: unspecified secondary hypertension Qualified Code(s): I15.9 - Secondary hypertension, unspecified Is this a current diagnosis for this admission?: Yes Plan: stable - Time Time Spent with patient: 15-24 minutes Medications reviewed and adjusted accordingly: Yes Within: Other - Inpatient Certification Medical Necessity: Need Close Monitoring Due to Risk of Patient Decompensation 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
[2017-02-01] MEDS: METHOCARBAMOL 500 MG TABLET PO SCH ×2 (10:38→18:40)
[2017-02-01] MEDS: AMLODIPINE BESYLATE 5 MG TABLET PO SCH (10:38)
[2017-02-01] MEDS: MULTIVITAMIN TABLET PO SCH (10:39)
[2017-02-01] MEDS: ENOXAPARIN SODIUM INJ 30 MG/0.3 ML DISP.SYRIN SUBCUT SCH (10:39)
[2017-02-01] MEDS: BUDESONIDE/FORMOTEROL 160-4.5 MCG 60 PUFF/6 GM MDI IH SCH ×2 (10:39→22:14)
[2017-02-01] MEDS: LOSARTAN POTASSIUM 50 MG TABLET PO SCH (10:39)
[2017-02-01] MEDS: LANSOPRAZOLE 30 MG TAB.RAP.DR PO SCH (10:39)
[2017-02-01] MEDS: FERROUS SULFATE 325 MG TABLET PO SCH (21:31)
[2017-02-01] MEDS: CITALOPRAM HYDROBROMIDE 20 MG TABLET PO SCH (21:32)
[2017-02-01] MEDS: CETIRIZINE 5 MG TABLET PO SCH (21:32)
[2017-02-01] MEDS: ATORVASTATIN CALCIUM 10 MG TABLET PO SCH (21:32)
[2017-02-01] MEDS: TIOTROPIUM BROMIDE DPI 5 CAP/KIT (18 MCG/CAP) IH SCH (21:36)
[2017-02-01] MEDS ORDERED: BUDESONIDE/FORMOTEROL 160-4.5 MCG 60 PUFF/6 GM MDI IH ONE (22:09)
[2017-02-02 04:39] LABS: ABSOLUTE LYMPHOCYTES (AUTO) 0.7 10^3/uL (0.5-4.7); ABSOLUTE MONOCYTES (AUTO) 0.5 10^3/uL (0.1-1.4); BASOPHILS % (AUTO) 0.1 % (0-2); HEMOGLOBIN 8.4 g/dL (12.0-15.5); HGB HCT DIFFERENCE 0.2; MEAN CORPUSCULAR HEMOGLOBIN 29.5 pg (27.0-33.4); MEAN CORPUSCULAR HGB CONC 33.8 g/dL (32.0-36.0); MEAN CORPUSCULAR VOLUME 87 fl (80-97); MONOCYTES % (AUTO) 5.1 % (3-13); RED BLOOD COUNT 2.87 10^6/uL (3.72-5.28); RED CELL DISTRIBUTION WIDTH 18.2 % (11.5-14.0); SEGMENTED NEUTROPHILS % (AUTO) 86.8 % (42-78); WHITE BLOOD COUNT 9.2 10^3/uL (4.0-10.5)
[2017-02-02 05:03] LABS: ANION GAP 10 (5-19); BLOOD UREA NITROGEN 28 mg/dL (7-20); CALCIUM 8.1 mg/dL (8.4-10.2); CARBON DIOXIDE 23 mmol/L (22-30); CHLORIDE 115 mmol/L (98-107); CREATININE RESULT 0.97 mg/dL (0.52-1.25); GLUCOSE 144 mg/dL (75-110); POTASSIUM 3.8 mmol/L (3.6-5.0); SODIUM 148.2 mmol/L (137-145)
[2017-02-02] MEDS: METHYLPREDNISOLONE INJ 125 MG/2 ML SDV IV SCH ×3 (05:36→21:08)
[2017-02-02] MEDS: PREGABALIN 75 MG CAPSULE PO SCH ×3 (05:36→21:08)
[2017-02-02] MEDS: METHOCARBAMOL 500 MG TABLET PO SCH ×2 (11:04→18:44)
[2017-02-02] MEDS: AMLODIPINE BESYLATE 5 MG TABLET PO SCH (11:05)
[2017-02-02] MEDS: BUDESONIDE/FORMOTEROL 160-4.5 MCG 60 PUFF/6 GM MDI IH SCH ×2 (11:09→21:08)
[2017-02-02] MEDS: MULTIVITAMIN TABLET PO SCH (11:09)
[2017-02-02] MEDS: LANSOPRAZOLE 30 MG TAB.RAP.DR PO SCH (11:09)
[2017-02-02] MEDS: LOSARTAN POTASSIUM 50 MG TABLET PO SCH (11:09)
[2017-02-02] MEDS: ENOXAPARIN SODIUM INJ 30 MG/0.3 ML DISP.SYRIN SUBCUT SCH (11:10)
--- NOTE | 2017-02-02 13:30 | PDOC PROGRESS REPORT ---
Subjective Progress Note for:: 02/02/17 Subjective:: Patient is currently doing much better. Denied any chest pain denied any shortness of the breath no other events happens overnight Physical Exam Vital Signs: Temp Pulse Resp BP Pulse Ox 97.7 F 85 16 130/69 H 97 02/02/17 07:53 02/02/17 08:00 02/02/17 08:00 02/02/17 07:53 02/02/17 08:00 Intake & Output 02/01/17 02/02/17 02/03/17 06:59 06:59 06:59 Intake Total 2374 2009 Output Total 0 Balance 2374 2009 Weight 75.9 kg 78.2 kg General appearance: PRESENT: no acute distress, well-developed, well-nourished Head exam: PRESENT: atraumatic, normocephalic Eye exam: PRESENT: conjunctiva pink, EOMI, PERRLA. ABSENT: scleral icterus Ear exam: PRESENT: normal external ear exam Mouth exam: PRESENT: moist, tongue midline Neck exam: PRESENT: full ROM. ABSENT: carotid bruit, JVD, lymphadenopathy, thyromegaly Respiratory exam: PRESENT: decreased breath sounds Cardiovascular exam: PRESENT: RRR. ABSENT: diastolic murmur, rubs, systolic murmur Pulses: PRESENT: normal dorsalis pedis pul, +2 pedal pulses bilateral Vascular exam: PRESENT: normal capillary refill GI/Abdominal exam: PRESENT: normal bowel sounds, soft. ABSENT: distended, guarding, mass, organolmegaly, rebound, tenderness Rectal exam: PRESENT: deferred Neurological exam: PRESENT: alert, awake, oriented to person, oriented to place , oriented to time, oriented to situation, CN II-XII grossly intact. ABSENT: motor sensory deficit Psychiatric exam: PRESENT: appropriate affect, normal mood. ABSENT: homicidal ideation, suicidal ideation Skin exam: PRESENT: dry, intact, warm. ABSENT: cyanosis, rash Results Laboratory Results: 02/02/17 04:18 02/02/17 04:18 02/02/17 02/02/17 04:18 04:18 WBC 9.2 RBC 2.87 L Hgb 8.4 L Hct 25.0 L MCV 87 MCH 29.5 MCHC 33.8 RDW 18.2 H Plt Count 273 Seg Neutrophils % 86.8 H Lymphocytes % 8.0 L Monocytes % 5.1 Eosinophils % 0.0 Basophils % 0.1 Absolute Neutrophils 8.0 Absolute Lymphocytes 0.7 Absolute Monocytes 0.5 Absolute Eosinophils 0.0 Absolute Basophils 0.0 Sodium 148.2 H Potassium 3.8 Chloride 115 H Carbon Dioxide 23 Anion Gap 10 BUN 28 H Creatinine 0.97 Est GFR ( Amer) > 60 Est GFR (Non-Af Amer) 56 L Glucose 144 H Calcium 8.1 L Impressions: Chest X-Ray 01/30/17 00:00 IMPRESSION: NO ACUTE RADIOGRAPHIC FINDING IN THE CHEST. KUB X-Ray 01/30/17 21:19 IMPRESSION: Right femoral central venous catheter with tip overlying the right common iliac vein at the L5 right spinous process level. NO RADIOGRAPHIC EVIDENCE FOR ACUTE ABDOMINAL DISEASE. Assessment & Plan - Diagnosis (1) Acute chronic obstructive pulmonary disease with respiratory distress Is this a current diagnosis for this admission?: Yes Plan: Continues a nebulizer treatments decrease the IV steroid (2) COPD exacerbation Is this a current diagnosis for this admission?: Yes Plan: Continues a nebulizer treatment (3) Pneumonia Qualifiers: Pneumonia type: due to unspecified organism Laterality: right Lung location: lower lobe of lung Qualified Code(s): J18.1 - Lobar pneumonia, unspecified organism Is this a current diagnosis for this admission?: Yes Plan: IV antibiotic (4) Sepsis Qualifiers: Sepsis type: sepsis due to unspecified organism Qualified Code(s): A41.9 - Sepsis, unspecified organism Is this a current diagnosis for this admission?: Yes Plan: Continues to antibiotic (5) End stage COPD Is this a current diagnosis for this admission?: Yes Plan: Patient is currently on a BiPAP (6) Hypertension Qualifiers: Hypertension type: unspecified secondary hypertension Qualified Code(s): I15.9 - Secondary hypertension, unspecified Is this a current diagnosis for this admission?: Yes - Time Time Spent with patient: 15-24 minutes Medications reviewed and adjusted accordingly: Yes Anticipated discharge: Other Within: Other - Inpatient Certification Medical Necessity: Need Close Monitoring Due to Risk of Patient Decompensation, Need for IV Antibiotics 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
[2017-02-02] MEDS: CITALOPRAM HYDROBROMIDE 20 MG TABLET PO SCH (21:08)
[2017-02-02] MEDS: FERROUS SULFATE 325 MG TABLET PO SCH (21:08)
[2017-02-02] MEDS: ATORVASTATIN CALCIUM 10 MG TABLET PO SCH (21:08)
[2017-02-02] MEDS: TIOTROPIUM BROMIDE DPI 5 CAP/KIT (18 MCG/CAP) IH SCH (21:08)
[2017-02-02] MEDS: LEVOFLOXACIN 750 MG TABLET PO SCH (21:08)
[2017-02-02] MEDS: CETIRIZINE 5 MG TABLET PO SCH (21:08)
[2017-02-03] MEDS: OXYCODONE-ACETAMINOPHEN 5-325 MG TABLET PO PRN ×2 (04:05→21:14)
[2017-02-03] MEDS: OXYCODONE HCL IR 5 MG TABLET PO PRN ×2 (04:05→21:15)
[2017-02-03] MEDS: METHYLPREDNISOLONE INJ 125 MG/2 ML SDV IV SCH ×2 (05:02→14:15)
[2017-02-03] MEDS: PREGABALIN 75 MG CAPSULE PO SCH ×3 (05:02→21:15)
[2017-02-03 05:35] LABS: ANION GAP 11 (5-19); BLOOD UREA NITROGEN 30 mg/dL (7-20); CARBON DIOXIDE 24 mmol/L (22-30); CHLORIDE 114 mmol/L (98-107); CREATININE RESULT 0.98 mg/dL (0.52-1.25); GLUCOSE 125 mg/dL (75-110); SODIUM 148.5 mmol/L (137-145)
[2017-02-03] MEDS: IPRATROPIUM/ALBUTEROL 0.5-2.5 MG/3 ML AMPUL NEB PRN (07:48)
[2017-02-03] MEDS: LANSOPRAZOLE 30 MG TAB.RAP.DR PO SCH (10:58)
[2017-02-03] MEDS: BUDESONIDE/FORMOTEROL 160-4.5 MCG 60 PUFF/6 GM MDI IH SCH ×2 (10:58→21:15)
[2017-02-03] MEDS: METHOCARBAMOL 500 MG TABLET PO SCH ×2 (10:58→18:55)
[2017-02-03] MEDS: AMLODIPINE BESYLATE 5 MG TABLET PO SCH (10:58)
[2017-02-03] MEDS: MULTIVITAMIN TABLET PO SCH (10:58)
[2017-02-03] MEDS: LOSARTAN POTASSIUM 50 MG TABLET PO SCH (10:59)
[2017-02-03] MEDS: ENOXAPARIN SODIUM INJ 30 MG/0.3 ML DISP.SYRIN SUBCUT SCH (10:59)
--- NOTE | 2017-02-03 18:31 | PDOC PROGRESS REPORT ---
Subjective Progress Note for:: 02/03/17 Subjective:: She was seen by the bedside, there is improvement of the chest symptoms Physical Exam Vital Signs: Temp Pulse Resp BP Pulse Ox 98.5 F 94 18 135/78 H 100 02/03/17 15:08 02/03/17 15:08 02/03/17 15:08 02/03/17 15:08 02/03/17 15:08 Intake & Output 02/02/17 02/03/17 02/04/17 06:59 06:59 06:59 Intake Total 2009 1062 1250 Output Total 400 500 Balance 2009 662 750 Weight 78.2 kg 77 kg General appearance: PRESENT: mild distress Eye exam: PRESENT: PERRLA Neck exam: PRESENT: full ROM Respiratory exam: PRESENT: wheezes Cardiovascular exam: PRESENT: RRR, +S1, +S2 Pulses: PRESENT: normal dorsalis pedis pul, +2 pedal pulses bilateral Vascular exam: PRESENT: normal capillary refill GI/Abdominal exam: PRESENT: normal bowel sounds, soft Rectal exam: PRESENT: deferred Neurological exam: PRESENT: alert, CN II-XII grossly intact. ABSENT: motor sensory deficit Psychiatric exam: PRESENT: appropriate affect, normal mood Skin exam: PRESENT: dry, intact, warm Results Laboratory Results: 02/02/17 04:18 02/03/17 04:00 02/03/17 04:00 Sodium 148.5 H Potassium 4.0 Chloride 114 H Carbon Dioxide 24 Anion Gap 11 BUN 30 H Creatinine 0.98 Est GFR ( Amer) > 60 Est GFR (Non-Af Amer) 55 L Glucose 125 H Calcium 8.0 L Impressions: Chest X-Ray 01/30/17 00:00 IMPRESSION: NO ACUTE RADIOGRAPHIC FINDING IN THE CHEST. KUB X-Ray 01/30/17 21:19 IMPRESSION: Right femoral central venous catheter with tip overlying the right common iliac vein at the L5 right spinous process level. NO RADIOGRAPHIC EVIDENCE FOR ACUTE ABDOMINAL DISEASE. Assessment & Plan - Diagnosis (1) Acute respiratory failure Qualifiers: Respiratory failure complication: unspecified whether with hypoxia or hypercapnia Qualified Code(s): J96.00 - Acute respiratory failure, unspecified whether with hypoxia or hypercapnia Is this a current diagnosis for this admission?: Yes (2) Chronic obstructive pulmonary disease with (acute) exacerbation Is this a current diagnosis for this admission?: Yes (3) Squamous cell carcinoma of lung, stage I Qualifiers: Laterality: left Qualified Code(s): C34.92 - Malignant neoplasm of unspecified part of left bronchus or lung Is this a current diagnosis for this admission?: Yes (4) Hypotension Qualifiers: Hypotension type: unspecified hypotension type Qualified Code(s): I95.9 - Hypotension, unspecified Is this a current diagnosis for this admission?: Yes - Plan Summary Plan Summary: Discontinue IV Solu-Medrol start p.o. prednisone
[2017-02-03] MEDS ORDERED: PREDNISONE 20 MG TABLET PO ONE (19:30)
[2017-02-03] MEDS: TIOTROPIUM BROMIDE DPI 5 CAP/KIT (18 MCG/CAP) IH SCH (21:14)
[2017-02-03] MEDS: CETIRIZINE 5 MG TABLET PO SCH (21:14)
[2017-02-03] MEDS: FERROUS SULFATE 325 MG TABLET PO SCH (21:14)
[2017-02-03] MEDS: ATORVASTATIN CALCIUM 10 MG TABLET PO SCH (21:15)
[2017-02-03] MEDS: CITALOPRAM HYDROBROMIDE 20 MG TABLET PO SCH (21:15)
[2017-02-04] MEDS: PREGABALIN 75 MG CAPSULE PO SCH ×3 (05:27→21:34)
[2017-02-04 06:10] LABS: ANION GAP 9 (5-19); BLOOD UREA NITROGEN 29 mg/dL (7-20); CALCIUM 7.9 mg/dL (8.4-10.2); CARBON DIOXIDE 27 mmol/L (22-30); CHLORIDE 112 mmol/L (98-107); CREATININE RESULT 0.76 mg/dL (0.52-1.25); GLUCOSE 142 mg/dL (75-110); POTASSIUM 4.1 mmol/L (3.6-5.0); SODIUM 147.8 mmol/L (137-145)
[2017-02-04] MEDS: OXYCODONE-ACETAMINOPHEN 5-325 MG TABLET PO PRN ×2 (10:53→21:35)
[2017-02-04] MEDS: OXYCODONE HCL IR 5 MG TABLET PO PRN ×2 (10:54→21:36)
[2017-02-04] MEDS: AMLODIPINE BESYLATE 5 MG TABLET PO SCH (10:54)
[2017-02-04] MEDS: METHOCARBAMOL 500 MG TABLET PO SCH ×2 (10:55→17:59)
[2017-02-04] MEDS: PREDNISONE 20 MG TABLET PO SCH (10:55)
[2017-02-04] MEDS: MULTIVITAMIN TABLET PO SCH (10:56)
[2017-02-04] MEDS: LOSARTAN POTASSIUM 50 MG TABLET PO SCH (10:56)
[2017-02-04] MEDS: ENOXAPARIN SODIUM INJ 30 MG/0.3 ML DISP.SYRIN SUBCUT SCH (10:57)
[2017-02-04] MEDS: BUDESONIDE/FORMOTEROL 160-4.5 MCG 60 PUFF/6 GM MDI IH SCH ×2 (10:59→23:46)
[2017-02-04] MEDS: LANSOPRAZOLE 30 MG TAB.RAP.DR PO SCH (11:07)
[2017-02-04] MEDS: IPRATROPIUM/ALBUTEROL 0.5-2.5 MG/3 ML AMPUL NEB PRN (19:55)
--- NOTE | 2017-02-04 21:08 | PDOC PROGRESS REPORT ---
Subjective Progress Note for:: 02/04/17 Subjective:: Patient was seen by the bedside she seems to be improving some she has osteoporotic fracture of the lumbar bone she was supposed to have kyphoplasty Physical Exam Vital Signs: Temp Pulse Resp BP Pulse Ox 98.0 F 57 L 16 131/49 H 99 02/04/17 20:43 02/04/17 20:43 02/04/17 20:43 02/04/17 20:43 02/04/17 20:43 Intake & Output 02/03/17 02/04/17 02/05/17 06:59 06:59 06:59 Intake Total 1062 1560 905 Output Total 400 500 700 Balance 662 1060 205 Weight 77 kg 73.8 kg General appearance: PRESENT: mild distress Head exam: PRESENT: atraumatic, normocephalic Ear exam: PRESENT: normal external ear exam Mouth exam: PRESENT: moist, tongue midline Neck exam: PRESENT: full ROM Respiratory exam: PRESENT: wheezes Cardiovascular exam: PRESENT: RRR, +S1, +S2 Vascular exam: PRESENT: normal capillary refill GI/Abdominal exam: PRESENT: normal bowel sounds, soft Rectal exam: PRESENT: deferred Neurological exam: PRESENT: alert, awake, oriented to person, oriented to place , oriented to time, oriented to situation, CN II-XII grossly intact Psychiatric exam: PRESENT: appropriate affect, normal mood Skin exam: PRESENT: dry, intact, warm Results Laboratory Results: 02/02/17 04:18 02/04/17 04:20 02/04/17 04:20 Sodium 147.8 H Potassium 4.1 Chloride 112 H Carbon Dioxide 27 Anion Gap 9 BUN 29 H Creatinine 0.76 Est GFR ( Amer) > 60 Est GFR (Non-Af Amer) > 60 Glucose 142 H Calcium 7.9 L 02/02/17 11:30 Nasophary ([facility] Only) MRSA Surveillance Culture - Final MRSA RECOVERED Impressions: Chest X-Ray 01/30/17 00:00 IMPRESSION: NO ACUTE RADIOGRAPHIC FINDING IN THE CHEST. KUB X-Ray 01/30/17 21:19 IMPRESSION: Right femoral central venous catheter with tip overlying the right common iliac vein at the L5 right spinous process level. NO RADIOGRAPHIC EVIDENCE FOR ACUTE ABDOMINAL DISEASE. Assessment & Plan - Diagnosis (1) Acute respiratory failure Qualifiers: Respiratory failure complication: unspecified whether with hypoxia or hypercapnia Qualified Code(s): J96.00 - Acute respiratory failure, unspecified whether with hypoxia or hypercapnia Is this a current diagnosis for this admission?: Yes (2) Chronic obstructive pulmonary disease with (acute) exacerbation Is this a current diagnosis for this admission?: Yes (3) Squamous cell carcinoma of lung, stage I Qualifiers: Laterality: left Qualified Code(s): C34.92 - Malignant neoplasm of unspecified part of left bronchus or lung Is this a current diagnosis for this admission?: Yes (4) Hypotension Qualifiers: Hypotension type: unspecified hypotension type Qualified Code(s): I95.9 - Hypotension, unspecified Is this a current diagnosis for this admission?: Yes
[2017-02-04] MEDS: CITALOPRAM HYDROBROMIDE 20 MG TABLET PO SCH (21:34)
[2017-02-04] MEDS: FERROUS SULFATE 325 MG TABLET PO SCH (21:35)
[2017-02-04] MEDS: ATORVASTATIN CALCIUM 10 MG TABLET PO SCH (21:35)
[2017-02-04] MEDS: CETIRIZINE 5 MG TABLET PO SCH (21:35)
[2017-02-04] MEDS: LEVOFLOXACIN 750 MG TABLET PO SCH (21:36)
[2017-02-04] MEDS: TIOTROPIUM BROMIDE DPI 5 CAP/KIT (18 MCG/CAP) IH SCH (23:47)
[2017-02-05] MEDS: OXYCODONE HCL IR 5 MG TABLET PO PRN ×2 (03:07→21:28)
[2017-02-05] MEDS: OXYCODONE-ACETAMINOPHEN 5-325 MG TABLET PO PRN ×2 (03:07→21:28)
[2017-02-05] MEDS: PREGABALIN 75 MG CAPSULE PO SCH ×3 (06:15→21:30)
[2017-02-05] MEDS: LANSOPRAZOLE 30 MG TAB.RAP.DR PO SCH (08:26)
[2017-02-05] MEDS: IPRATROPIUM/ALBUTEROL 0.5-2.5 MG/3 ML AMPUL NEB PRN (09:40)
[2017-02-05] MEDS: BUDESONIDE/FORMOTEROL 160-4.5 MCG 60 PUFF/6 GM MDI IH SCH ×2 (12:16→21:30)
[2017-02-05] MEDS: PREDNISONE 20 MG TABLET PO SCH (12:16)
[2017-02-05] MEDS: AMLODIPINE BESYLATE 5 MG TABLET PO SCH (12:20)
[2017-02-05] MEDS: METHOCARBAMOL 500 MG TABLET PO SCH ×2 (12:20→18:58)
[2017-02-05] MEDS: ENOXAPARIN SODIUM INJ 30 MG/0.3 ML DISP.SYRIN SUBCUT SCH (12:22)
[2017-02-05] MEDS: MULTIVITAMIN TABLET PO SCH (12:22)
[2017-02-05] MEDS: LOSARTAN POTASSIUM 50 MG TABLET PO SCH (12:22)
[2017-02-05] MEDS ORDERED: MAGNESIUM HYDROXIDE SUSP 30 ML UDCUP PO PRN (14:10)
[2017-02-05] MEDS ORDERED: BISACODYL 10 MG SUPP.RECT PR ONE (15:00)
--- NOTE | 2017-02-05 17:20 | PDOC PROGRESS REPORT ---
Subjective Progress Note for:: 02/05/17 Subjective:: She was seen by the bedside, she has no new complaint Physical Exam Vital Signs: Temp Pulse Resp BP Pulse Ox 97.7 F 101 H 19 137/78 H 99 02/05/17 11:50 02/05/17 11:50 02/05/17 11:50 02/05/17 11:50 02/05/17 16:45 Intake & Output 02/04/17 02/05/17 02/06/17 06:59 06:59 06:59 Intake Total 1560 1271 360 Output Total 500 700 Balance 1060 571 360 Weight 73.8 kg 76.9 kg General appearance: PRESENT: mild distress Head exam: PRESENT: atraumatic, normocephalic Eye exam: ABSENT: scleral icterus Ear exam: PRESENT: normal external ear exam Mouth exam: PRESENT: moist, tongue midline Neck exam: PRESENT: full ROM Respiratory exam: PRESENT: wheezes Cardiovascular exam: PRESENT: RRR, +S1, +S2 Vascular exam: PRESENT: normal capillary refill GI/Abdominal exam: PRESENT: normal bowel sounds, soft Rectal exam: PRESENT: deferred Neurological exam: PRESENT: alert Skin exam: PRESENT: dry, intact, warm. ABSENT: cyanosis, rash Results Laboratory Results: 02/02/17 04:18 02/04/17 04:20 Impressions: Chest X-Ray 01/30/17 00:00 IMPRESSION: NO ACUTE RADIOGRAPHIC FINDING IN THE CHEST. KUB X-Ray 01/30/17 21:19 IMPRESSION: Right femoral central venous catheter with tip overlying the right common iliac vein at the L5 right spinous process level. NO RADIOGRAPHIC EVIDENCE FOR ACUTE ABDOMINAL DISEASE. Assessment & Plan - Diagnosis (1) Acute respiratory failure Qualifiers: Respiratory failure complication: unspecified whether with hypoxia or hypercapnia Qualified Code(s): J96.00 - Acute respiratory failure, unspecified whether with hypoxia or hypercapnia Is this a current diagnosis for this admission?: Yes (2) Chronic obstructive pulmonary disease with (acute) exacerbation Is this a current diagnosis for this admission?: Yes (3) Squamous cell carcinoma of lung, stage I Qualifiers: Laterality: left Qualified Code(s): C34.92 - Malignant neoplasm of unspecified part of left bronchus or lung Is this a current diagnosis for this admission?: Yes (4) Hypotension Qualifiers: Hypotension type: unspecified hypotension type Qualified Code(s): I95.9 - Hypotension, unspecified Is this a current diagnosis for this admission?: Yes
[2017-02-05] MEDS: ATORVASTATIN CALCIUM 10 MG TABLET PO SCH (21:29)
[2017-02-05] MEDS: FERROUS SULFATE 325 MG TABLET PO SCH (21:30)
[2017-02-05] MEDS: TIOTROPIUM BROMIDE DPI 5 CAP/KIT (18 MCG/CAP) IH SCH (21:30)
[2017-02-05] MEDS: CITALOPRAM HYDROBROMIDE 20 MG TABLET PO SCH (21:30)
[2017-02-05] MEDS: CETIRIZINE 5 MG TABLET PO SCH (21:32)
[2017-02-06] MEDS: OXYCODONE HCL IR 5 MG TABLET PO PRN (04:07)
[2017-02-06] MEDS: OXYCODONE-ACETAMINOPHEN 5-325 MG TABLET PO PRN (04:07)
[2017-02-06] MEDS: LANSOPRAZOLE 30 MG TAB.RAP.DR PO SCH (07:44)
[2017-02-06] MEDS: PREGABALIN 75 MG CAPSULE PO SCH ×3 (07:44→22:58)
[2017-02-06] MEDS: IPRATROPIUM/ALBUTEROL 0.5-2.5 MG/3 ML AMPUL NEB PRN (10:21)
[2017-02-06] MEDS: LOSARTAN POTASSIUM 50 MG TABLET PO SCH (11:19)
[2017-02-06] MEDS: MULTIVITAMIN TABLET PO SCH (11:20)
[2017-02-06] MEDS: METHOCARBAMOL 500 MG TABLET PO SCH ×2 (11:20→17:58)
[2017-02-06] MEDS: AMLODIPINE BESYLATE 5 MG TABLET PO SCH (11:20)
[2017-02-06] MEDS: BUDESONIDE/FORMOTEROL 160-4.5 MCG 60 PUFF/6 GM MDI IH SCH ×2 (11:21→22:59)
[2017-02-06] MEDS: PREDNISONE 20 MG TABLET PO SCH (11:22)
[2017-02-06 11:50] LABS: HEMATOCRIT 29.4 % (36.0-47.0); HEMOGLOBIN 9.8 g/dL (12.0-15.5); MEAN CORPUSCULAR HEMOGLOBIN 29.2 pg (27.0-33.4); MEAN CORPUSCULAR HGB CONC 33.4 g/dL (32.0-36.0); MEAN CORPUSCULAR VOLUME 88 fl (80-97); RED BLOOD COUNT 3.35 10^6/uL (3.72-5.28); RED CELL DISTRIBUTION WIDTH 18.1 % (11.5-14.0)
[2017-02-06 12:16] LABS: ANION GAP 7 (5-19); BLOOD UREA NITROGEN 20 mg/dL (7-20); CALCIUM 8.4 mg/dL (8.4-10.2); CARBON DIOXIDE 30 mmol/L (22-30); CHLORIDE 105 mmol/L (98-107); CREATININE RESULT 0.72 mg/dL (0.52-1.25); GLUCOSE 76 mg/dL (75-110); POTASSIUM 3.5 mmol/L (3.6-5.0); SODIUM 142.1 mmol/L (137-145)
[2017-02-06 12:21] LABS: BASOPHILS % (MANUAL) 0 % (0-2); EOSINOPHILS % (MANUAL) 0 % (0-6); LYMPHOCYTES % (MANUAL) 14 % (13-45); TOTAL CELLS COUNTED 100
[2017-02-06 12:22] LABS: ANISOCYTOSIS 1+; OVALOCYTES SLIGHT; POIKILOCYTOSIS SLIGHT; POLYCHROMASIA SLIGHT; TEAR DROP CELLS SLIGHT
[2017-02-06] MEDS: ENOXAPARIN SODIUM INJ 30 MG/0.3 ML DISP.SYRIN SUBCUT SCH (14:48)
--- NOTE | 2017-02-06 20:39 | PDOC PROGRESS REPORT ---
Subjective Progress Note for:: 02/06/17 Subjective:: She was seen by the bedside, she continues to respond to steroids/prednisone Physical Exam Vital Signs: Temp Pulse Resp BP Pulse Ox 98.4 F 96 19 124/68 97 02/06/17 15:35 02/06/17 15:35 02/06/17 15:35 02/06/17 15:35 02/06/17 15:35 Intake & Output 02/05/17 02/06/17 02/07/17 06:59 06:59 06:59 Intake Total 5021 697 4167 Output Total 700 Balance 660 941 6091 Weight 76.9 kg 73 kg General appearance: PRESENT: no acute distress Head exam: PRESENT: atraumatic, normocephalic Eye exam: PRESENT: conjunctiva pink, EOMI, PERRLA Neck exam: PRESENT: full ROM Respiratory exam: PRESENT: rhonchi Cardiovascular exam: PRESENT: RRR, +S1, +S2 Vascular exam: PRESENT: normal capillary refill GI/Abdominal exam: PRESENT: normal bowel sounds, soft Rectal exam: PRESENT: deferred Neurological exam: PRESENT: alert Psychiatric exam: ABSENT: homicidal ideation, suicidal ideation Skin exam: PRESENT: dry, intact, warm. ABSENT: cyanosis, rash Results Laboratory Results: 02/06/17 11:08 02/06/17 11:08 02/06/17 02/06/17 11:08 11:08 WBC 20.0 H RBC 3.35 L Hgb 9.8 L Hct 29.4 L MCV 88 MCH 29.2 MCHC 33.4 RDW 18.1 H Plt Count 287 Seg Neutrophils % Not Reportable Lymphocytes % Not Reportable Monocytes % Not Reportable Eosinophils % Not Reportable Basophils % Not Reportable Absolute Neutrophils Not Reportable Absolute Lymphocytes Not Reportable Absolute Monocytes Not Reportable Absolute Eosinophils Not Reportable Absolute Basophils Not Reportable Sodium 142.1 Potassium 3.5 L Chloride 105 Carbon Dioxide 30 Anion Gap 7 BUN 20 Creatinine 0.72 Est GFR ( Amer) > 60 Est GFR (Non-Af Amer) > 60 Glucose 76 Calcium 8.4 Impressions: Chest X-Ray 01/30/17 00:00 IMPRESSION: NO ACUTE RADIOGRAPHIC FINDING IN THE CHEST. KUB X-Ray 01/30/17 21:19 IMPRESSION: Right femoral central venous catheter with tip overlying the right common iliac vein at the L5 right spinous process level. NO RADIOGRAPHIC EVIDENCE FOR ACUTE ABDOMINAL DISEASE. Assessment & Plan - Diagnosis (1) Acute respiratory failure Qualifiers: Respiratory failure complication: unspecified whether with hypoxia or hypercapnia Qualified Code(s): J96.00 - Acute respiratory failure, unspecified whether with hypoxia or hypercapnia Is this a current diagnosis for this admission?: Yes (2) Chronic obstructive pulmonary disease with (acute) exacerbation Is this a current diagnosis for this admission?: Yes Plan: Reduce prednisone to 20 mg p.o. daily (3) Squamous cell carcinoma of lung, stage I Qualifiers: Laterality: left Qualified Code(s): C34.92 - Malignant neoplasm of unspecified part of left bronchus or lung Is this a current diagnosis for this admission?: Yes (4) Hypotension Qualifiers: Hypotension type: unspecified hypotension type Qualified Code(s): I95.9 - Hypotension, unspecified Is this a current diagnosis for this admission?: Yes
[2017-02-06] MEDS: LEVOFLOXACIN 750 MG TABLET PO SCH (22:58)
[2017-02-06] MEDS ORDERED: TIOTROPIUM BROMIDE DPI 5 CAP/KIT (18 MCG/CAP) IH ONE (22:58)
[2017-02-06] MEDS: ATORVASTATIN CALCIUM 10 MG TABLET PO SCH (22:58)
[2017-02-06] MEDS: CITALOPRAM HYDROBROMIDE 20 MG TABLET PO SCH (22:58)
[2017-02-06] MEDS: FERROUS SULFATE 325 MG TABLET PO SCH (22:58)
[2017-02-06] MEDS: CETIRIZINE 5 MG TABLET PO SCH (22:58)
[2017-02-07] MEDS: TIOTROPIUM BROMIDE DPI 5 CAP/KIT (18 MCG/CAP) IH SCH (00:59)
[2017-02-07 05:40] LABS: ABSOLUTE BASOPHILS # (AUTO) 0.1 10^3/uL (0.0-0.2); ABSOLUTE EOSINOPHILS # (AUTO) 0.1 10^3/uL (0.0-0.6); ABSOLUTE LYMPHOCYTES (AUTO) 2.5 10^3/uL (0.5-4.7); ABSOLUTE MONOCYTES (AUTO) 1.1 10^3/uL (0.1-1.4); BASOPHILS % (AUTO) 0.5 % (0-2); EOSINOPHILS % (AUTO) 0.8 % (0-6); HEMOGLOBIN 9.4 g/dL (12.0-15.5); HGB HCT DIFFERENCE 0.2; LYMPHOCYTES % (AUTO) 16.7 % (13-45); MEAN CORPUSCULAR HEMOGLOBIN 29.3 pg (27.0-33.4); MEAN CORPUSCULAR HGB CONC 33.5 g/dL (32.0-36.0); MEAN CORPUSCULAR VOLUME 87 fl (80-97); MONOCYTES % (AUTO) 7.7 % (3-13); SEGMENTED NEUTROPHILS % (AUTO) 74.3 % (42-78); WHITE BLOOD COUNT 14.8 10^3/uL (4.0-10.5)
[2017-02-07 05:44] LABS: ANION GAP 7 (5-19); BLOOD UREA NITROGEN 20 mg/dL (7-20); CALCIUM 8.2 mg/dL (8.4-10.2); CARBON DIOXIDE 29 mmol/L (22-30); CHLORIDE 106 mmol/L (98-107); CREATININE RESULT 0.75 mg/dL (0.52-1.25); GLUCOSE 69 mg/dL (75-110); POTASSIUM 3.8 mmol/L (3.6-5.0); SODIUM 142.1 mmol/L (137-145)
[2017-02-07] MEDS: OXYCODONE-ACETAMINOPHEN 5-325 MG TABLET PO PRN ×2 (05:50→13:14)
[2017-02-07] MEDS: OXYCODONE HCL IR 5 MG TABLET PO PRN ×2 (05:50→13:15)
[2017-02-07] MEDS: PREGABALIN 75 MG CAPSULE PO SCH ×2 (05:55→13:58)
[2017-02-07] MEDS: MULTIVITAMIN TABLET PO SCH (10:17)
[2017-02-07] MEDS: LOSARTAN POTASSIUM 50 MG TABLET PO SCH (10:17)
[2017-02-07] MEDS: PREDNISONE 20 MG TABLET PO SCH (10:17)
[2017-02-07] MEDS: METHOCARBAMOL 500 MG TABLET PO SCH ×2 (10:17→19:02)
[2017-02-07] MEDS: AMLODIPINE BESYLATE 5 MG TABLET PO SCH (10:18)
[2017-02-07] MEDS: LANSOPRAZOLE 30 MG TAB.RAP.DR PO SCH (10:18)
[2017-02-07] MEDS: BUDESONIDE/FORMOTEROL 160-4.5 MCG 60 PUFF/6 GM MDI IH SCH (10:21)
[2017-02-07] MEDS: ENOXAPARIN SODIUM INJ 30 MG/0.3 ML DISP.SYRIN SUBCUT SCH (10:22)
[2017-02-07] MEDS: IPRATROPIUM/ALBUTEROL 0.5-2.5 MG/3 ML AMPUL NEB PRN (20:02)
--- NOTE | 2017-02-07 21:00 | PDOC PROGRESS REPORT ---
Subjective Progress Note for:: 02/07/17 Subjective:: She was seen by the bedside, she continues to respond to steroids/prednisone Physical Exam Vital Signs: Temp Pulse Resp BP Pulse Ox 97.5 F 87 18 107/59 L 97 02/07/17 19:24 02/07/17 20:02 02/07/17 20:02 02/07/17 19:24 02/07/17 20:02 Intake & Output 02/06/17 02/07/17 02/08/17 06:59 06:59 06:59 Intake Total 687 1593 863 Balance 687 1593 863 Weight 73 kg 73.1 kg General appearance: PRESENT: no acute distress Head exam: PRESENT: atraumatic, normocephalic Eye exam: ABSENT: scleral icterus Ear exam: PRESENT: normal external ear exam Neck exam: PRESENT: full ROM Respiratory exam: PRESENT: rhonchi Cardiovascular exam: PRESENT: RRR, +S1, +S2 Pulses: PRESENT: normal dorsalis pedis pul, +2 pedal pulses bilateral Vascular exam: PRESENT: normal capillary refill GI/Abdominal exam: PRESENT: normal bowel sounds, soft Rectal exam: PRESENT: deferred Neurological exam: PRESENT: alert Psychiatric exam: PRESENT: appropriate affect, normal mood Skin exam: PRESENT: dry, intact, warm Results Laboratory Results: 02/07/17 04:30 02/07/17 04:30 02/07/17 02/07/17 04:30 04:30 WBC 14.8 H RBC 3.20 L Hgb 9.4 L Hct 28.0 L MCV 87 MCH 29.3 MCHC 33.5 RDW 18.0 H Plt Count 265 Seg Neutrophils % 74.3 Lymphocytes % 16.7 Monocytes % 7.7 Eosinophils % 0.8 Basophils % 0.5 Absolute Neutrophils 11.0 H Absolute Lymphocytes 2.5 Absolute Monocytes 1.1 Absolute Eosinophils 0.1 Absolute Basophils 0.1 Sodium 142.1 Potassium 3.8 Chloride 106 Carbon Dioxide 29 Anion Gap 7 BUN 20 Creatinine 0.75 Est GFR ( Amer) > 60 Est GFR (Non-Af Amer) > 60 Glucose 69 L Calcium 8.2 L Impressions: Chest X-Ray 01/30/17 00:00 IMPRESSION: NO ACUTE RADIOGRAPHIC FINDING IN THE CHEST. KUB X-Ray 01/30/17 21:19 IMPRESSION: Right femoral central venous catheter with tip overlying the right common iliac vein at the L5 right spinous process level. NO RADIOGRAPHIC EVIDENCE FOR ACUTE ABDOMINAL DISEASE. Assessment & Plan - Diagnosis (1) Acute respiratory failure Qualifiers: Respiratory failure complication: unspecified whether with hypoxia or hypercapnia Qualified Code(s): J96.00 - Acute respiratory failure, unspecified whether with hypoxia or hypercapnia Is this a current diagnosis for this admission?: Yes (2) Chronic obstructive pulmonary disease with (acute) exacerbation Is this a current diagnosis for this admission?: Yes (3) Squamous cell carcinoma of lung, stage I Qualifiers: Laterality: left Qualified Code(s): C34.92 - Malignant neoplasm of unspecified part of left bronchus or lung Is this a current diagnosis for this admission?: Yes (4) Hypotension Qualifiers: Hypotension type: unspecified hypotension type Qualified Code(s): I95.9 - Hypotension, unspecified Is this a current diagnosis for this admission?: Yes
[2017-02-07] MEDS: ATORVASTATIN CALCIUM 10 MG TABLET PO SCH (23:37)
[2017-02-08] MEDS: FERROUS SULFATE 325 MG TABLET PO SCH (01:40)
[2017-02-08] MEDS: CETIRIZINE 5 MG TABLET PO SCH (01:40)
[2017-02-08] MEDS: PREGABALIN 75 MG CAPSULE PO SCH ×3 (01:40→13:20)
[2017-02-08] MEDS: BUDESONIDE/FORMOTEROL 160-4.5 MCG 60 PUFF/6 GM MDI IH SCH ×2 (01:40→10:09)
[2017-02-08] MEDS: TIOTROPIUM BROMIDE DPI 5 CAP/KIT (18 MCG/CAP) IH SCH (01:40)
[2017-02-08] MEDS: CITALOPRAM HYDROBROMIDE 20 MG TABLET PO SCH (01:40)
[2017-02-08] MEDS: METHOCARBAMOL 500 MG TABLET PO SCH (10:08)
[2017-02-08] MEDS: PREDNISONE 20 MG TABLET PO SCH (10:08)
[2017-02-08] MEDS: MULTIVITAMIN TABLET PO SCH (10:08)
[2017-02-08] MEDS: LANSOPRAZOLE 30 MG TAB.RAP.DR PO SCH (10:08)
[2017-02-08] MEDS: AMLODIPINE BESYLATE 5 MG TABLET PO SCH (10:09)
[2017-02-08] MEDS: LOSARTAN POTASSIUM 50 MG TABLET PO SCH (10:09)
[2017-02-08] MEDS: ENOXAPARIN SODIUM INJ 30 MG/0.3 ML DISP.SYRIN SUBCUT SCH (10:09)
--- NOTE | 2017-02-08 12:50 | PDOC TRANSFER SUMMARY ---
General - Admit/Disc Date/PCP Admission Date/Primary Care Provider: 01/28/17 03:42 NATACHA ENGLAND MD Discharge Date: 02/08/17 - Discharge Diagnosis (1) Acute respiratory failure Is this a current diagnosis for this admission?: Yes (2) Chronic obstructive pulmonary disease with (acute) exacerbation Is this a current diagnosis for this admission?: Yes (3) Squamous cell carcinoma of lung, stage I Is this a current diagnosis for this admission?: Yes (4) Hypotension Is this a current diagnosis for this admission?: Yes - Additional Information Home Medications: Methocarbamol [Robaxin 500 mg Tablet] 500 mg PO BID #10 tablet 12/26/16 Albuterol Sulfate [Proair HFA] 2 puff IH Q4HP PRN 12/31/16 Amlodipine Besylate [Norvasc 5 mg Tablet] 5 mg PO DAILY 12/31/16 Atorvastatin Calcium [Lipitor 10 mg Tablet] 10 mg PO QHS 12/31/16 Budesonide/Formoterol Fumarate [Symbicort HFA 160-4.5 mcg Inhaler 6 gm] 1 puff IH Q12 12/31/16 Citalopram Hydrobromide [Celexa 20 mg Tablet] 20 mg PO DAILY 12/31/16 Clonidine HCl [Catapres 0.1 mg Tablet] 0.1 mg PO Q12 12/31/16 Ergocalciferol (Vitamin D2) [Drisdol 50,000 unit (1.25MG) Capsule] 50,000 unit PO [id number] 12/31/16 Ferrous Sulfate [Feosol 325 mg Tablet] 325 mg PO DAILY 12/31/16 Ipratropium/Albuterol Sulfate [Duoneb 3 ml Ampul] 3 ml NEB RTQ6HP PRN 12/31/16 Levocetirizine Dihydrochloride [Xyzal] 5 mg PO QHS 12/31/16 Losartan Potassium [Cozaar 100 mg Tablet] 100 mg PO DAILY 12/31/16 Mirtazapine [Remeron 15 mg Tablet] 7.5 mg PO QHS 12/31/16 Omeprazole 40 mg PO QAM 12/31/16 Oxycodone HCl/Acetaminophen [Percocet 10-325 mg Tablet] 1 each PO TIDP PRN 12/31 Pregabalin [Lyrica 75 mg Capsule] 75 mg PO Q8 12/31/16 Tiotropium [place] [Spiriva Handihaler 18 mcg/dose (30 Dose)] 1 cap IH DAILY Menthol [Biofreeze] 1 applic TP QIDP PRN 01/28/17 Multivitamin with Minerals [One Daily Plus Minerals] 1 each PO DAILY 01/28/17 Prednisone 5 mg PO DAILY #500 tab.ds.pk 02/08/17 History of Present Illness Admission Date/PCP: 01/28/17 03:42 NATACHA ENGLAND MD History of Present Illness: HUNTER GRANADOS is a 71 year old female.She has end-stage COPD, multiple hospitalization,recently discharge on 01/16/2017, resident of the senior living at [facility]. She was transferred from the senior living to the emergency room because of respiratory distress. In the Emergency room chest x-ray was done that showed improvement compared to previous x-ray, she was found to have low blood pressure that was associated leukocytosis. Patient also have lung cancer that has not been treated because of multiple intercurrent illnesses that prevent treatment of the lung cancer ,was diagnosed over a year ago. She has history of osteoporotic fracture of the spine ,overall prognosis is very poor. She was advised previously of hospice option or palliative care she declined both options that was made available to her. Hospital Course Hospital Course: Patient 72-year-old female with end-stage COPD, multiple hospital admission, she was admitted for acute decompensated of COPD associated with acute respiratory acidosis. She was treated with IV Solu-Medrol and IV antibiotic. It seems that she has steroid-dependent COPD, she will require some form of prednisone to stabilize her breathing. She was discharged back to senior living today for continuity of care. Physical Exam Vital Signs: Temp Pulse Resp BP Pulse Ox 98.0 F 88 20 120/61 100 02/08/17 12:29 02/08/17 12:29 02/08/17 12:29 02/08/17 12:29 02/08/17 12:29 Intake & Output 02/07/17 02/08/17 02/09/17 06:59 06:59 06:59 Intake Total 1593 876 236 Balance 1593 876 236 Weight 73.1 kg 76.6 kg General appearance: PRESENT: no acute distress Eye exam: PRESENT: PERRLA Respiratory exam: PRESENT: rhonchi Cardiovascular exam: PRESENT: +S1, +S2 GI/Abdominal exam: PRESENT: soft Neurological exam: PRESENT: alert, CN II-XII grossly intact Results Laboratory Results: 02/07/17 04:30 02/07/17 04:30 Impressions: Chest X-Ray 01/30/17 00:00 IMPRESSION: NO ACUTE RADIOGRAPHIC FINDING IN THE CHEST. KUB X-Ray 01/30/17 21:19 IMPRESSION: Right femoral central venous catheter with tip overlying the right common iliac vein at the L5 right spinous process level. NO RADIOGRAPHIC EVIDENCE FOR ACUTE ABDOMINAL DISEASE.
[2017-02-08] MEDS: OXYCODONE-ACETAMINOPHEN 5-325 MG TABLET PO PRN (13:54)
[2017-02-08] MEDS: OXYCODONE HCL IR 5 MG TABLET PO PRN (13:54)
[2017-02-08 16:52] VITALS: BP 116/57
== END 2017-02-08 17:31 | DRG 189 ==
LOC: ER 19:46 → UNDOADMIN 20:46 → EH 20:46 → 3N 01-28 00:38 → EH 01-28 00:38 → 3N 01-28 03:42 → EH 01-28 03:42
PROVIDERS: ADMIT Internal Medicine; ATTEND Internal Medicine
PROC: 06HC33Z Insertion of Infusion Device into Right Common Iliac Vein, Percutaneous Approach (ICD-10-PCS; principal; 2017-01-30)
DX: J96.00 Acute respiratory failure, unspecified whether with hypoxia or hypercapnia (principal); J44.1 Chronic obstructive pulmonary disease with (acute) exacerbation; C34.92 Malignant neoplasm of unspecified part of left bronchus or lung; E87.2 Acidosis; Z66 Do not resuscitate; I10 Essential (primary) hypertension; E78.5 Hyperlipidemia, unspecified; K21.9 Gastro-esophageal reflux disease without esophagitis; M80.08XD Age-related osteoporosis with current pathological fracture, vertebra(e), subsequent encounter for fracture with routine healing; Z87.01 Personal history of pneumonia (recurrent); Z98.84 Bariatric surgery status; Z88.0 Allergy status to penicillin; Z86.14 Personal history of Methicillin resistant Staphylococcus aureus infection; Z87.891 Personal history of nicotine dependence; Z79.51 Long term (current) use of inhaled steroids; Z79.899 Other long term (current) drug therapy; Z87.310 Personal history of (healed) osteoporosis fracture
CPT/HCPCS: 36415; 36600; 71010; 74000; 80048; 80053; 82550; 82553; 82565; 82803; 83605; 83735; 84484; 85025; 85027; 85610; 85730; 87040; 87077; 87186; 93005; 93010; 94640; 94660; 96374; 99291; C1751; G8978-GP; G8979-GP; J1642; J1650; J1956; J2930; J3475; J3490; J7030; J7512; J7620

== ENCOUNTER → 2017-03-13 | Outpatient (CLI) | payer MEDICARE, MEDICAID | LOC: LAB 10:10 | PROVIDERS: ATTEND Internal Medicine Medical Oncology | DX: C34.90 Malignant neoplasm of unspecified part of unspecified bronchus or lung (principal) | CPT/HCPCS: 85002 ==

== ENCOUNTER 2017-03-28 09:33 | Inpatient (IN) | payer MEDICARE, MEDICAID ==
[2017-03-28] MEDS ORDERED: ACETAMINOPHEN 325 MG TABLET PO ONE (09:37)
[2017-03-28] MEDS ORDERED: NORMAL SALINE 1000 ML 1,000 ML IV ONE (09:37)
--- NOTE | 2017-03-28 09:59 | ER Document Report ---
ED General - General Stated Complaint: RESPIRATORY DISTRESS Time Seen by Provider: 03/28/17 09:37 Mode of Arrival: Medic Information source: Patient, H Records Notes: 72-year-old female history of end-stage COPD presents with complaints of respiratory distress. Patient was noted to have difficulty breathing and was placed on her home BiPAP at care facility. Patient was brought in by EMS on CPAP, they attempted to do nonrebreather the O2 sats decreased to 90% patient became quite agitated. temp 100.1 noted TRAVEL OUTSIDE OF THE [place] IN LAST 30 DAYS: No - HPI Onset: Yesterday Onset/Duration: Sudden, Waxing and waning Quality of pain: No pain Severity: Moderate Pain Level: Denies Associated symptoms: Productive cough, Fever, Shortness of breath Exacerbated by: Walking Relieved by: Denies Similar symptoms previously: Yes Recently seen / treated by doctor: Yes - Related Data Allergies/Adverse Reactions: Penicillins Allergy (Verified 03/28/17 11:07) Hives Past Medical History - Social History Smoking Status: Former Smoker Cigarette use (# per day): No Chew tobacco use (# tins/day): No Smoking Education Provided: No Family History: Arthritis, None, Reviewed & Not Pertinent - Past Medical History Cardiac Medical History: Reports: Hx Hypercholesterolemia, Hx Hypertension Denies: Hx Coronary Artery Disease, Hx Heart Attack Pulmonary Medical History: Reports: Hx Asthma, Hx Bronchitis, Hx COPD, Hx Pneumonia, Hx Respiratory Failure Denies: Hx Tuberculosis Neurological Medical History: Denies: Hx Cerebrovascular Accident, Hx Seizures Endocrine Medical History: Denies: Hx Diabetes Mellitus Type 1, Hx Diabetes Mellitus Type 2 Renal/ Medical History: Denies: Hx Peritoneal Dialysis Malignancy Medical History: Reports: Hx Lung Cancer GI Medical History: Reports: Hx Gastroesophageal Reflux Disease Musculoskeltal Medical History: Reports Hx Arthritis Psychiatric Medical History: Reports: Hx Anxiety, Hx Depression Infectious Medical History: Reports: Hx MRSA - History of MRSA pneumonia Past Surgical History: Reports: Hx Abdominal Surgery - gastric bypass, sbo, Hx Appendectomy, Hx Cholecystectomy, Hx Hysterectomy, Hx Orthopedic Surgery - Immunizations Immunizations up to date: Yes Hx Diphtheria, Pertussis, Tetanus Vaccination: No Hx Pneumococcal Vaccination: 04/14/12 Review of Systems - Review of Systems Notes: REVIEW OF SYSTEMS: CONSTITUTIONAL : Denies fever, chills, or sweats. Denies recent illness. EENT: Denies eye, ear, throat, or mouth pain or symptoms. Denies nasal or sinus congestion or discharge. Denies throat, tongue, or mouth swelling or difficulty swallowing. CARDIOVASCULAR: Denies chest pain. Denies palpitations or racing or irregular heart beat. Denies ankle edema. RESPIRATORY:admits ot shortness of breath, cough GASTROINTESTINAL: Denies abdominal pain or distention. Denies nausea, vomiting , or diarrhea. Denies blood in vomitus, stools, or per rectum. Denies black, tarry stools. Denies constipation. GENITOURINARY: Denies difficulty urinating, painful urination, burning, frequency, blood in urine, or discharge. FEMALE GENITOURINARY: Denies vaginal bleeding, heavy or abnormal periods, irregular periods. Denies vaginal discharge or odor. MUSCULOSKELETAL: Denies back or neck pain or stiffness. Denies joint pain or swelling. SKIN: Denies rash, lesions or sores. HEMATOLOGIC : Denies easy bruising or bleeding. LYMPHATIC: Denies swollen, enlarged glands. NEUROLOGICAL: Denies confusion or altered mental status. Denies passing out or loss of consciousness. Denies dizziness or lightheadedness. Denies headache. Denies weakness or paralysis or loss of use of either side. Denies problems with gait or speech. Denies sensory loss, numbness, or tingling. Denies seizures. PSYCHIATRIC: Denies anxiety or stress. Denies depression, suicidal ideation, or homicidal ideation. ALL OTHER SYSTEMS REVIEWED AND NEGATIVE. PHYSICAL EXAMINATION: GENERAL: chronically ill appearing female in mild resp distress HEAD: Atraumatic, normocephalic. EYES: Pupils equal round and reactive to light, extraocular movements intact, conjunctiva are normal. ENT: Nares patent, oropharynx clear without exudates. Moist mucous membranes. NECK: Normal range of motion, supple without lymphadenopathy LUNGS: coarse rhonchi all throughout on cpap HEART: Regular rate and rhythm without murmurs ABDOMEN: Soft, nontender, nondistended abdomen. No guarding, no rebound. No masses appreciated. Female : deferred Musculoskeletal: Normal range of motion, no pitting or edema. No cyanosis. NEUROLOGICAL: Cranial nerves grossly intact. Normal speech, normal gait. Normal sensory, motor exams PSYCH: Normal mood, normal affect. SKIN: Warm, Dry, normal turgor, no rashes or lesions noted. Dictation was performed using Dragon voice recognition software Physical Exam - Vital signs Vitals: Resp Pulse Ox 25 H 100 03/28/17 09:38 03/28/17 09:38 Course - Re-evaluation Re-evalutation: 03/28/17 09:59 pt immediately placed on bipap, she is stable at this time, septic work up pending. 03/28/17 11:24 pt noted ot have pneumonia, levquin started, pt to be admitted to [facility] on bipap - Vital Signs Vital signs: Temp Pulse Resp BP Pulse Ox 25 H 126/104 H 99 03/28/17 11:00 03/28/17 09:42 03/28/17 11:00 - Laboratory Result Diagrams: 03/28/17 10:15 03/28/17 10:15 Laboratory results interpreted by me: 03/28/17 03/28/17 03/28/17 10:15 10:15 10:15 WBC 13.3 H RBC 3.64 L Hgb 10.3 L Hct 32.2 L MCHC 31.9 L RDW 16.5 H Eosinophils % 6.2 H Absolute Neutrophils 9.1 H Absolute Eosinophils 0.8 H VBG pH 7.29 L BUN 29 H Est GFR (Non-Af Amer) 51 L Glucose 60 L Alkaline Phosphatase 142 H - Diagnostic Test Radiology reviewed: Image reviewed, Reports reviewed Critical Care Note - Critical Care Note Total time excluding time spent on procedures (mins): 34 Comments: 34 minutes of critical care time spent in direct contact evaluating and reevaluating the patient, treating symptoms, reviewing labs and studies and speaking with family and consultants excluding any procedures Discharge - Discharge Clinical Impression: COPD exacerbation Sepsis Qualifiers: Sepsis type: sepsis due to unspecified organism Qualified Code(s): A41.9 - Sepsis, unspecified organism Pneumonia Qualifiers: Pneumonia type: due to unspecified organism Laterality: left Lung location: lower lobe of lung Qualified Code(s): J18.1 - Lobar pneumonia, unspecified organism Chronic respiratory failure Qualifiers: Respiratory failure complication: hypoxia Qualified Code(s): J96.11 - Chronic respiratory failure with hypoxia Condition: Fair Disposition: ADMITTED INPATIENT Admitting Provider: [facility] Unit Admitted: [facility]
[2017-03-28 10:36] LABS: ABSOLUTE BASOPHILS # (AUTO) 0.1 10^3/uL (0.0-0.2); ABSOLUTE EOSINOPHILS # (AUTO) 0.8 10^3/uL (0.0-0.6); ABSOLUTE LYMPHOCYTES (AUTO) 2.2 10^3/uL (0.5-4.7); ABSOLUTE MONOCYTES (AUTO) 1.2 10^3/uL (0.1-1.4); ABSOLUTE NEUT (AUTO) 9.1 10^3/uL (1.7-8.2); BASOPHILS % (AUTO) 0.4 % (0-2); EOSINOPHILS % (AUTO) 6.2 % (0-6); HEMATOCRIT 32.2 % (36.0-47.0); HEMOGLOBIN 10.3 g/dL (12.0-15.5); LYMPHOCYTES % (AUTO) 16.3 % (13-45); MEAN CORPUSCULAR HEMOGLOBIN 28.2 pg (27.0-33.4); MEAN CORPUSCULAR HGB CONC 31.9 g/dL (32.0-36.0); MEAN CORPUSCULAR VOLUME 88 fl (80-97); MONOCYTES % (AUTO) 8.7 % (3-13); PLATELET COUNT 400 10^3/uL (150-450); RED BLOOD COUNT 3.64 10^6/uL (3.72-5.28); RED CELL DISTRIBUTION WIDTH 16.5 % (11.5-14.0); SEGMENTED NEUTROPHILS % (AUTO) 68.4 % (42-78); TOTAL CELLS COUNTED % (AUTO) 100 %; WHITE BLOOD COUNT 13.3 10^3/uL (4.0-10.5)
[2017-03-28 10:37] LABS: VENOUS BLOOD BASE EXCESS -1.6 mmol/L; VENOUS BLOOD HCO3 25.4 mmol/L (20-32); VENOUS BLOOD PCO2 54.2 mmHg (35-63); VENOUS BLOOD PH 7.29 (7.30-7.42)
[2017-03-28 10:43] LABS: INTERNATIONAL RATION (INR) 0.99; PROTHROMBIN TIME 13.8 SEC (11.4-15.4)
[2017-03-28 10:55] LABS: ALANINE AMINOTRANSFERASE 32 U/L (9-52); ALBUMIN 3.5 g/dL (3.5-5.0); ALKALINE PHOSPHATASE 142 U/L (38-126); ANION GAP 18 (5-19); ASPARTATE AMINO TRANSFERASE 21 U/L (14-36); BILIRUBIN,DIRECT 0.3 mg/dL (0.0-0.4); BILIRUBIN,TOTAL 0.5 mg/dL (0.2-1.3); BLOOD UREA NITROGEN 29 mg/dL (7-20); CALCIUM 9.1 mg/dL (8.4-10.2); CARBON DIOXIDE 22 mmol/L (22-30); CHLORIDE 104 mmol/L (98-107); GLUCOSE 60 mg/dL (75-110); POTASSIUM 4.8 mmol/L (3.6-5.0); SODIUM 144.2 mmol/L (137-145); TOTAL PROTEIN 6.4 g/dL (6.3-8.2)
[2017-03-28] MEDS ORDERED: LEVOFLOXACIN 750 MG/D5W RTU 750 MG/150 ML RTUPB IV ONE (11:18)
--- NOTE | 2017-03-28 11:20 | RADIOLOGY REPORT (SQ) ---
EXAM DESCRIPTION: CHEST SINGLE VIEW COMPLETED DATE/TIME: 03/28/2017 10:51 am REASON FOR STUDY: copd , fever COMPARISON: 01/30/2017 EXAM PARAMETERS: NUMBER OF VIEWS: One view. TECHNIQUE: Single frontal radiographic view of the chest acquired. RADIATION DOSE: NA LIMITATIONS: None. FINDINGS: LUNGS AND PLEURA: There is an area of fairly dense opacification in the left mid lung late rally. Mild chronic interstitial changes are present. MEDIASTINUM AND HILAR STRUCTURES: No masses. Contour normal. HEART AND VASCULAR STRUCTURES: Heart normal in size. Normal vasculature. BONES: No acute findings. HARDWARE: None in the chest. OTHER: No other significant finding. IMPRESSION: Chronic lung changes with pneumonia the left lung as described. TECHNICAL DOCUMENTATION: JOB ID: [id number] [employer]- All Rights Reserved
[2017-03-28] MEDS ORDERED: NORMAL SALINE 1000 ML 1,000 ML IV PRN (11:25)
[2017-03-28 12:32] LABS: APPEARANCE,URINE SLIGHTLY-CLOUDY; BILIRUBIN,URINE NEGATIVE (NEGATIVE); COLOR,URINE YELLOW; GLUCOSE, URINE NEGATIVE (NEGATIVE); KETONES,URINE TRACE mg/dL (NEGATIVE); LEUKOCYTE ESTERASE,URINE SMALL (NEGATIVE); NITRITE,URINE NEGATIVE (NEGATIVE); PROTEIN,URINE NEGATIVE (NEGATIVE); UROBILINOGEN,URINE NEGATIVE mg/dL (<2.0)
--- NOTE | 2017-03-28 13:36 | EKG REPORT ---
SEVERITY:- ABNORMAL ECG - SINUS TACHYCARDIA LEFT ANTERIOR FASCICULAR BLOCK CONSIDER RVH W/ SECONDARY REPOL ABNORMALITY NONSPECIFIC T ABNORMALITIES, LATERAL LEADS : Confirmed by: Latoya Vasquez 28-Mar-2017 13:35:34
[2017-03-28] MEDS ORDERED: (PENDING PHARMACY ID) (Menthol [Biofreeze] 1 APPLIC) TP PRN (20:42)
[2017-03-28] MEDS ORDERED: (PENDING PHARMACY ID) (Oxycodone Hcl/Acetaminophen [Percocet 10-325 Mg Tablet] 1 EACH) PO PRN (20:42)
--- NOTE | 2017-03-28 21:00 | PDOC H&P ---
History of Present Illness Admission Date/PCP: 03/28/17 11:49 NATACHA ENGLAND MD History of Present Illness: HUNTER GRANADOS is a 72 year old, She has multiple comorbid conditions, DNR status resident of treatment group home, she was transferred from the group home to the hospital because of shortness of breath, she was supported with noninvasive positive pressure ventilation BiPAP in the ER, chest x-ray was done , it showed a dense lesion in the left lingula lobe, this is suspicious for malignant neoplasm, CT chest will be ordered, it showed pleural-based mass the left lower lobe now measuring 6.2 x 4.8 cm. She was first diagnosed with lung cancer back in January 17, 2016, at that time it was a nodule, which was biopsied , the pathology was consistent with squamous cell carcinoma. She was referred to oncology, [facility] radiation therapy was recommended, [facility] She went couple of times to [place] but she never received any treatment for the cancer because of intercurrent illnesses, whenever she is scheduled for treatment she usually is seek of some kind of illnesses i.e. sepsis, pneumonia acute COPD exacerbation clearly the mass has increased in size, not sure if she is a candidate at this time for treatment, consultation will be requested from oncology to determine the plan of care for the malignant lesion. Past Medical History Cardiac Medical History: Reports: Hyperlipidema, Hypertension Pulmonary Medical History: Reports: Asthma, Bronchitis, Chronic Obstructive Pulmonary Disease (COPD), Pneumonia, Respiratory Failure Malignancy Medical History: Reports: Lung Cancer GI Medical History: Reports: Gastroesophageal Reflux Disease Musculoskeltal Medical History: Reports: Arthritis Psychiatric Medical History: Reports: Depression Hematology: Reports: Anemia Infectious Medical History: Reports: 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 Past Surgical History Past Surgical History: Reports: Appendectomy, Cholecystectomy, Hysterectomy, Orthopedic Surgery Social History Smoking Status: Former Smoker Frequency of Alcohol Use: None Hx Recreational Drug Use: No Drugs: None Hx Prescription Drug Abuse: No - Advance Directive Resuscitation Status: Full Code Family History Family History: Arthritis, None, Reviewed & Not Pertinent Parental Family History Reviewed: Yes Children Family History Reviewed: Yes Sibling(s) Family History Reviewed.: Yes Medication/Allergy Home Medications: RX: Methocarbamol [Robaxin 500 mg Tablet] 500 mg PO BID #10 tablet 12/26/16 RX: Albuterol Sulfate [Proair HFA] 2 puff IH Q4HP PRN 12/31/16 RX: Amlodipine Besylate [Norvasc 5 mg Tablet] 5 mg PO DAILY 12/31/16 RX: Atorvastatin Calcium [Lipitor 10 mg Tablet] 10 mg PO QHS 12/31/16 RX: Budesonide/Formoterol Fumarate [Symbicort HFA 160-4.5 mcg Inhaler 6 gm] 1 puff IH Q12 12/31/16 RX: Citalopram Hydrobromide [Celexa 20 mg Tablet] 20 mg PO DAILY 12/31/16 RX: Clonidine HCl [Catapres 0.1 mg Tablet] 0.1 mg PO Q12 12/31/16 RX: Ergocalciferol (Vitamin D2) [Drisdol 50,000 unit (1.25MG) Capsule] 50,000 unit PO [id number] 12/31/16 RX: Ferrous Sulfate [Feosol 325 mg Tablet] 325 mg PO DAILY 12/31/16 RX: Ipratropium/Albuterol Sulfate [Duoneb 3 ml Ampul] 3 ml NEB RTQ6HP PRN RX: Levocetirizine Dihydrochloride [Xyzal] 5 mg PO QHS 12/31/16 RX: Losartan Potassium [Cozaar 100 mg Tablet] 100 mg PO DAILY 12/31/16 RX: Mirtazapine [Remeron 15 mg Tablet] 7.5 mg PO QHS 12/31/16 RX: Omeprazole 40 mg PO QAM 12/31/16 RX: Oxycodone HCl/Acetaminophen [Percocet 10-325 mg Tablet] 1 each PO TIDP PRN 12/31/16 RX: Pregabalin [Lyrica 75 mg Capsule] 75 mg PO Q8 12/31/16 RX: Tiotropium [place] [Spiriva Handihaler 18 mcg/dose (30 Dose)] 1 cap IH DAILY 12/31/16 Multivitamin with Minerals [One Daily Plus Minerals] 1 each PO DAILY 01/28/17 RX: Menthol [Biofreeze] 1 applic TP QIDP PRN 01/28/17 RX: Prednisone 5 mg PO DAILY #500 tab.ds.pk 02/08/17 Allergies/Adverse Reactions: Penicillins Allergy (Verified 03/28/17 11:07) Danilo Review of Systems Constitutional: PRESENT: weight loss Eyes: ABSENT: visual disturbances Ears: ABSENT: hearing changes Cardiovascular: PRESENT: chest pain Respiratory: PRESENT: cough, dyspnea Gastrointestinal: ABSENT: abdominal pain, constipation, diarrhea, hematemesis, hematochezia, nausea, vomiting Genitourinary: ABSENT: dysuria, hematuria Musculoskeletal: ABSENT: joint swelling Integumentary: ABSENT: rash, wounds Neurological: ABSENT: abnormal gait, abnormal speech, confusion, dizziness, focal weakness, syncope Psychiatric: ABSENT: anxiety, depression, homidical ideation, suicidal ideation Endocrine: ABSENT: cold intolerance, heat intolerance, menstrual abnormalities, polydipsia, polyuria Hematologic/Lymphatic: ABSENT: easy bleeding, easy bruising, lymphadenopathy Physical Exam Vital Signs: Temp Pulse Resp BP Pulse Ox 97.4 F 82 17 108/60 100 03/28/17 19:58 03/28/17 19:58 03/28/17 20:10 03/28/17 19:58 03/28/17 19:58 Intake & Output 03/27/17 03/28/17 03/29/17 06:59 06:59 06:59 Output Total 550 Balance -550 General appearance: PRESENT: severe distress Head exam: PRESENT: atraumatic, normocephalic Eye exam: PRESENT: conjunctiva pink, EOMI, PERRLA Ear exam: PRESENT: normal external ear exam Mouth exam: PRESENT: moist, tongue midline Neck exam: PRESENT: full ROM Respiratory exam: PRESENT: wheezes Cardiovascular exam: PRESENT: RRR, +S1, +S2 Pulses: PRESENT: normal dorsalis pedis pul, +2 pedal pulses bilateral Vascular exam: PRESENT: normal capillary refill GI/Abdominal exam: PRESENT: normal bowel sounds, soft Rectal exam: PRESENT: deferred Neurological exam: PRESENT: alert Psychiatric exam: PRESENT: appropriate affect, normal mood Skin exam: PRESENT: dry, intact, warm Results Laboratory Results: 03/28/17 11:58 Urine Color YELLOW Urine Appearance SLIGHTLY-CLOUDY Urine pH 5.0 Ur Specific [place] 1.010 Urine Protein NEGATIVE Urine Glucose (UA) NEGATIVE Urine Ketones TRACE H Urine Blood SMALL H Urine Nitrite NEGATIVE Ur Leukocyte Esterase SMALL H Urine WBC (Auto) 6 Urine RBC (Auto) 1 Impressions: Chest X-Ray 03/28/17 09:37 IMPRESSION: Chronic lung changes with pneumonia the left lung as described. Assessment & Plan - Diagnosis (1) Acute hypercapnic respiratory failure Is this a current diagnosis for this admission?: Yes Plan: Patient will continue noninvasive positive pressure ventilation with BiPAP (2) Very severe chronic obstructive pulmonary disease Is this a current diagnosis for this admission?: Yes (3) HTN (hypertension) Qualifiers: Hypertension type: essential hypertension Qualified Code(s): I10 - Essential (primary) hypertension Is this a current diagnosis for this admission?: Yes (4) Malignant neoplasm of lower lobe, left bronchus or lung Is this a current diagnosis for this admission?: Yes Plan: We will obtain consultation from oncology not sure the path she want to pursue, if she wants treatment for this cancer it may need to be rebiopsied,restage.
[2017-03-28] MEDS ORDERED: ERGOCALCIFEROL (VITAMIN D2) 50000 UNIT (1.25 MG) CAPSULE PO SCH (22:00)
[2017-03-28] MEDS ORDERED: LEVOFLOXACIN 750 MG/D5W RTU 750 MG/150 ML RTUPB IV SCH (22:00)
[2017-03-28 22:25] LABS: HEMATOCRIT 29.6 % (36.0-47.0); HEMOGLOBIN 9.7 g/dL (12.0-15.5); MEAN CORPUSCULAR HEMOGLOBIN 28.8 pg (27.0-33.4); MEAN CORPUSCULAR HGB CONC 32.7 g/dL (32.0-36.0); MEAN CORPUSCULAR VOLUME 88 fl (80-97); PLATELET COUNT 337 10^3/uL (150-450); RED BLOOD COUNT 3.37 10^6/uL (3.72-5.28); RED CELL DISTRIBUTION WIDTH 16.1 % (11.5-14.0)
[2017-03-28 22:28] LABS: INTERNATIONAL RATION (INR) 1.04; PROTHROMBIN TIME 14.3 SEC (11.4-15.4)
[2017-03-28 22:29] LABS: PARTIAL THROMBOPLASTIN TIME 53.5 SEC (23.5-35.8)
[2017-03-28] MEDS: NORMAL SALINE 1000 ML 1,000 ML IV PRN (23:23)
[2017-03-28] MEDS: MIRTAZAPINE 15 MG TABLET PO SCH (23:27)
[2017-03-28] MEDS: ATORVASTATIN CALCIUM 10 MG TABLET PO SCH (23:27)
[2017-03-28] MEDS: BUDESONIDE/FORMOTEROL 160-4.5 MCG 60 PUFF/6 GM MDI IH SCH (23:27)
[2017-03-28] MEDS: CLONIDINE HCL 0.1 MG TABLET PO SCH (23:27)
[2017-03-28] MEDS: METHOCARBAMOL 500 MG TABLET PO SCH (23:27)
[2017-03-28] MEDS: CETIRIZINE 5 MG TABLET PO SCH (23:27)
[2017-03-28] MEDS: PREGABALIN 75 MG CAPSULE PO SCH (23:27)
[2017-03-29] MEDS: IPRATROPIUM/ALBUTEROL 0.5-2.5 MG/3 ML AMPUL NEB SCH ×6 (00:08→19:52)
[2017-03-29] MEDS: OXYCODONE-ACETAMINOPHEN 5-325 MG TABLET PO PRN ×3 (04:38→22:34)
[2017-03-29] MEDS: OXYCODONE HCL IR 5 MG TABLET PO PRN ×3 (04:38→22:45)
[2017-03-29] MEDS: LANSOPRAZOLE 30 MG TAB.RAP.DR PO SCH (05:16)
[2017-03-29] MEDS: PREGABALIN 75 MG CAPSULE PO SCH ×3 (05:16→22:32)
[2017-03-29 05:39] LABS: ABSOLUTE LYMPHOCYTES (AUTO) 1.1 10^3/uL (0.5-4.7); ABSOLUTE MONOCYTES (AUTO) 0.5 10^3/uL (0.1-1.4); ABSOLUTE NEUT (AUTO) 7.2 10^3/uL (1.7-8.2); BASOPHILS % (AUTO) 0.4 % (0-2); EOSINOPHILS % (AUTO) 0.1 % (0-6); HEMATOCRIT 27.4 % (36.0-47.0); HEMOGLOBIN 9.1 g/dL (12.0-15.5); LYMPHOCYTES % (AUTO) 12.8 % (13-45); MEAN CORPUSCULAR HEMOGLOBIN 29.1 pg (27.0-33.4); MEAN CORPUSCULAR HGB CONC 33.1 g/dL (32.0-36.0); MEAN CORPUSCULAR VOLUME 88 fl (80-97); MONOCYTES % (AUTO) 5.4 % (3-13); PLATELET COUNT 309 10^3/uL (150-450); RED BLOOD COUNT 3.11 10^6/uL (3.72-5.28); RED CELL DISTRIBUTION WIDTH 15.9 % (11.5-14.0); SEGMENTED NEUTROPHILS % (AUTO) 81.3 % (42-78); TOTAL CELLS COUNTED % (AUTO) 100 %; WHITE BLOOD COUNT 8.9 10^3/uL (4.0-10.5)
[2017-03-29 05:56] LABS: ANION GAP 13 (5-19); BLOOD UREA NITROGEN 32 mg/dL (7-20); CALCIUM 8.4 mg/dL (8.4-10.2); CARBON DIOXIDE 18 mmol/L (22-30); CHLORIDE 113 mmol/L (98-107); GLUCOSE 86 mg/dL (75-110)
[2017-03-29 06:10] LABS: ARTERIAL BLOOD BASE EXCESS -6.9 mmol/L; ARTERIAL BLOOD H2CO3 1.17 mmol/L (1.05-1.35); ARTERIAL BLOOD HCO3 18.9 mmol/L (20-26); ARTERIAL BLOOD O2 SATURATION 97.4 % (94-98); ARTERIAL BLOOD PCO2 38.8 mmHg (35-45); ARTERIAL BLOOD PH 7.31 (7.35-7.45); ARTERIAL BLOOD PO2 105.1 mmHg (80-100); ARTERIAL BLOOD TOTAL CO2 20.1 mmol/L (21-25)
[2017-03-29 06:24] LABS: ARTERIAL BLOOD FIO2 28%
--- NOTE | 2017-03-29 06:59 | RADIOLOGY REPORT (SQ) ---
EXAM DESCRIPTION: CT CHEST WITH CONTRAST CLINICAL HISTORY: dense lesion in the lung neoplasm COMPARISON: Report from PET CT from 12/22/2016 TECHNIQUE: Axial CT images of the chest obtained following the uncomplicated intravenous administration of 80 mL Isovue-370. DLP: 314.30 mGycm Mild right basilar atelectasis or scarring. FINDINGS: CHEST: No abnormalities visualized thyroid gland. Great vessels have normal anatomic configuration. Atherosclerotic calcification of the thoracic aorta. Mild enlargement of the right lobe pulmonary arteries. This could be seen with pulmonary arterial hypertension. No definite large pulmonary embolus identified. Coronary artery atherosclerosis. No pericardial effusion or cardiomegaly. Small hiatal hernia. No mediastinal lymphadenopathy. Lung windows demonstrate no pneumothorax or pleural effusion. Centrilobular emphysematous changes. Pleural base mass in the left lower lobe measuring 6.2 x 4.8 cm. Surgical clip at the inferior aspect of this mass. Bone windows demonstrate degenerative spondylosis. Prior vertebral augmentation. Wedge compression deformity of T9 and T10 which appears chronic. No CT evidence of acuity. Limited images of the upper abdomen demonstrate prior cholecystectomy. No abnormalities of the [place] spleen, liver, pancreas, adrenal glands, or kidneys. IMPRESSION: 1. Significant increase in size of pleural-based left lower lobe lung mass now measuring 6.2 cm. This is concerning malignancy. This lesion would be amenable to percutaneous biopsy. 2. Central lobular emphysematous changes. 3. Coronary artery atherosclerosis. This exam was performed according to our departmental dose-optimization program, which includes automated exposure control, adjustment of the mA and/or kV according to patient size and/or use of iterative reconstruction technique.
[2017-03-29] MEDS: NORMAL SALINE 1000 ML 1,000 ML IV PRN ×2 (09:17→20:27)
[2017-03-29] MEDS: LEVOFLOXACIN 500 MG/D5W RTU 500 MG/100 ML RTUPB IV SCH (09:18)
[2017-03-29] MEDS: LOSARTAN POTASSIUM 50 MG TABLET PO SCH (09:18)
[2017-03-29] MEDS: PREDNISONE 5 MG TABLET PO SCH (09:20)
[2017-03-29] MEDS: METHOCARBAMOL 500 MG TABLET PO SCH ×2 (09:20→22:33)
[2017-03-29] MEDS: MULTIVITAMIN TABLET PO SCH (09:20)
[2017-03-29] MEDS: CITALOPRAM HYDROBROMIDE 20 MG TABLET PO SCH (09:21)
[2017-03-29] MEDS: CLONIDINE HCL 0.1 MG TABLET PO SCH ×2 (09:21→22:33)
[2017-03-29] MEDS: FERROUS SULFATE 325 MG TABLET PO SCH (09:21)
[2017-03-29] MEDS: BUDESONIDE/FORMOTEROL 160-4.5 MCG 60 PUFF/6 GM MDI IH SCH ×2 (09:22→22:48)
[2017-03-29] MEDS: AMLODIPINE BESYLATE 5 MG TABLET PO SCH (09:22)
[2017-03-29] MEDS: TIOTROPIUM BROMIDE DPI 5 CAP/KIT (18 MCG/CAP) IH SCH (09:23)
[2017-03-29] MEDS: ENOXAPARIN SODIUM INJ 40 MG/0.4 ML DISP.SYRIN SUBCUT SCH (09:24)
--- NOTE | 2017-03-29 09:27 | PDOC PROGRESS REPORT ---
Subjective Progress Note for:: 03/29/17 Subjective:: Patient is currently doing same. Patient CT of the chest increasing the size of the tumor Since currently see outpatient oncology for the lung cancer Still have a significant emphysema and currently on a BiPAP Since denied any chest pain but still having some short of breath Reason For Visit: OBSTRUCTIVE CHRONIC BRONCHITIS WITH EXACERBATION Physical Exam Vital Signs: Temp Pulse Resp BP Pulse Ox 98.2 F 84 20 111/59 L 98 03/29/17 07:14 03/29/17 07:14 03/29/17 07:14 03/29/17 07:14 03/29/17 07:14 Intake & Output 03/28/17 03/29/17 03/30/17 06:59 06:59 06:59 Intake Total 630 Output Total 1750 Balance -1120 Weight 73.3 kg General appearance: PRESENT: mild distress Eye exam: PRESENT: PERRLA Respiratory exam: PRESENT: decreased breath sounds Cardiovascular exam: PRESENT: +S1, +S2 GI/Abdominal exam: PRESENT: normal bowel sounds, soft Extremities exam: ABSENT: pedal edema Neurological exam: PRESENT: alert, awake, oriented to person, oriented to place Psychiatric exam: PRESENT: anxious Skin exam: PRESENT: dry Results Laboratory Results: 03/29/17 05:24 03/29/17 05:24 03/28/17 03/28/17 03/28/17 11:58 21:47 21:47 WBC 9.0 RBC 3.37 L Hgb 9.7 L Hct 29.6 L MCV 88 MCH 28.8 MCHC 32.7 RDW 16.1 H Plt Count 337 Seg Neutrophils % Lymphocytes % Monocytes % Eosinophils % Basophils % Absolute Neutrophils Absolute Lymphocytes Absolute Monocytes Absolute Eosinophils Absolute Basophils Carbonic Acid HCO3/H2CO3 Ratio ABG pH ABG pCO2 ABG pO2 ABG HCO3 ABG O2 Saturation ABG Base Excess FiO2 Sodium Potassium Chloride Carbon Dioxide Anion Gap BUN Creatinine 0.95 Est GFR ( Amer) > 60 Est GFR (Non-Af Amer) 58 L Glucose Calcium Urine Color YELLOW Urine Appearance SLIGHTLY-CLOUDY Urine pH 5.0 Ur Specific [place] 1.010 Urine Protein NEGATIVE Urine Glucose (UA) NEGATIVE Urine Ketones TRACE H Urine Blood SMALL H Urine Nitrite NEGATIVE Ur Leukocyte Esterase SMALL H Urine WBC (Auto) 6 Urine RBC (Auto) 1 03/29/17 03/29/17 03/29/17 05:24 05:24 05:56 WBC 8.9 RBC 3.11 L Hgb 9.1 L Hct 27.4 L MCV 88 MCH 29.1 MCHC 33.1 RDW 15.9 H Plt Count 309 Seg Neutrophils % 81.3 H Lymphocytes % 12.8 L Monocytes % 5.4 Eosinophils % 0.1 Basophils % 0.4 Absolute Neutrophils 7.2 Absolute Lymphocytes 1.1 Absolute Monocytes 0.5 Absolute Eosinophils 0.0 Absolute Basophils 0.0 Carbonic Acid 1.17 HCO3/H2CO3 Ratio 16:1 ABG pH 7.31 L ABG pCO2 38.8 ABG pO2 105.1 H ABG HCO3 18.9 L ABG O2 Saturation 97.4 ABG Base Excess -6.9 FiO2 28% Sodium 144.0 Potassium 5.0 Chloride 113 H Carbon Dioxide 18 L Anion Gap 13 BUN 32 H Creatinine 0.95 Est GFR ( Amer) > 60 Est GFR (Non-Af Amer) 58 L Glucose 86 Calcium 8.4 Urine Color Urine Appearance Urine pH Ur Specific [place] Urine Protein Urine Glucose (UA) Urine Ketones Urine Blood Urine Nitrite Ur Leukocyte Esterase Urine WBC (Auto) Urine RBC (Auto) 03/28/17 11:58 Soliman Catheter Urine Culture - Final Mixed Urogenital Caron Impressions: Chest CT 03/28/17 00:00 IMPRESSION: 1. Significant increase in size of pleural-based left lower lobe lung mass now measuring 6.2 cm. This is concerning malignancy. This lesion would be amenable to percutaneous biopsy. 2. Central lobular emphysematous changes. 3. Coronary artery atherosclerosis. This exam was performed according to our departmental dose-optimization program, which includes automated exposure control, adjustment of the mA and/or kV according to patient size and/or use of iterative reconstruction technique. Chest X-Ray 03/28/17 09:37 IMPRESSION: Chronic lung changes with pneumonia the left lung as described. Assessment & Plan - Diagnosis (1) Acute hypercapnic respiratory failure Is this a current diagnosis for this admission?: Yes Plan: Continues on a BiPAP consult the pulmonary (2) COPD exacerbation Is this a current diagnosis for this admission?: Yes Plan: This a nebulizer treatments (3) Hypertension Qualifiers: Hypertension type: unspecified secondary hypertension Qualified Code(s): I15.9 - Secondary hypertension, unspecified Is this a current diagnosis for this admission?: Yes (4) Lung cancer Qualifiers: Lung location: unspecified part of lung Is this a current diagnosis for this admission?: Yes Plan: CT scan suggest increasing the size I think patient have very poor prognosis - Time Time Spent with patient: 15-24 minutes Medications reviewed and adjusted accordingly: Yes Anticipated discharge: Other Within: Other - Inpatient Certification Medical Necessity: Need Close Monitoring Due to Risk of Patient Decompensation, Need for IV Antibiotics Post Hospital Care: D/C Addiction Specialist Documentation - Plan Summary Plan Summary: Start IV antibiotics continues to nebulizer treatments and continues to BiPAP Patient's prognosis is very poor due to the end-stage COPD with the lung cancers and multiple other comorbidity Currently a DNR DNI
[2017-03-29] MEDS ORDERED: (PENDING PHARMACY ID) (Multivitamin With Minerals [One Daily Plus Minerals] 1 EACH) PO SCH (10:00)
[2017-03-29] MEDS ORDERED: (PENDING PHARMACY ID) (Prednisone [Prednisone] 5 MG) PO SCH (10:00)
[2017-03-29] MEDS: BUSPIRONE HCL 10 MG TABLET PO SCH ×2 (13:12→22:35)
[2017-03-29] MEDS: ATORVASTATIN CALCIUM 10 MG TABLET PO SCH (22:35)
[2017-03-29] MEDS: MIRTAZAPINE 15 MG TABLET PO SCH (22:35)
[2017-03-29] MEDS: CETIRIZINE 5 MG TABLET PO SCH (22:36)
[2017-03-30] MEDS: IPRATROPIUM/ALBUTEROL 0.5-2.5 MG/3 ML AMPUL NEB SCH ×7 (00:09→23:12)
[2017-03-30] MEDS: NORMAL SALINE 1000 ML 1,000 ML IV PRN (06:20)
[2017-03-30] MEDS: LANSOPRAZOLE 30 MG TAB.RAP.DR PO SCH (06:21)
[2017-03-30] MEDS: PREGABALIN 75 MG CAPSULE PO SCH ×3 (06:22→22:16)
[2017-03-30] MEDS: BUSPIRONE HCL 10 MG TABLET PO SCH ×3 (06:22→22:16)
[2017-03-30 06:32] LABS: ABSOLUTE BASOPHILS # (AUTO) 0.1 10^3/uL (0.0-0.2); ABSOLUTE EOSINOPHILS # (AUTO) 0.4 10^3/uL (0.0-0.6); ABSOLUTE LYMPHOCYTES (AUTO) 1.3 10^3/uL (0.5-4.7); ABSOLUTE MONOCYTES (AUTO) 0.9 10^3/uL (0.1-1.4); ABSOLUTE NEUT (AUTO) 8.3 10^3/uL (1.7-8.2); EOSINOPHILS % (AUTO) 3.2 % (0-6); HEMATOCRIT 28.8 % (36.0-47.0); HEMOGLOBIN 9.6 g/dL (12.0-15.5); LYMPHOCYTES % (AUTO) 11.6 % (13-45); MEAN CORPUSCULAR HEMOGLOBIN 29.2 pg (27.0-33.4); MEAN CORPUSCULAR HGB CONC 33.4 g/dL (32.0-36.0); MEAN CORPUSCULAR VOLUME 88 fl (80-97); PLATELET COUNT 317 10^3/uL (150-450); RED BLOOD COUNT 3.29 10^6/uL (3.72-5.28); RED CELL DISTRIBUTION WIDTH 16.3 % (11.5-14.0); SEGMENTED NEUTROPHILS % (AUTO) 76.2 % (42-78); TOTAL CELLS COUNTED % (AUTO) 100 %; WHITE BLOOD COUNT 10.9 10^3/uL (4.0-10.5)
[2017-03-30 06:52] LABS: ANION GAP 8 (5-19); BLOOD UREA NITROGEN 26 mg/dL (7-20); CALCIUM 8.6 mg/dL (8.4-10.2); CARBON DIOXIDE 25 mmol/L (22-30); CHLORIDE 115 mmol/L (98-107); GLUCOSE 74 mg/dL (75-110); POTASSIUM 4.2 mmol/L (3.6-5.0)
[2017-03-30] MEDS: LEVOFLOXACIN 500 MG/D5W RTU 500 MG/100 ML RTUPB IV SCH (09:07)
[2017-03-30] MEDS: TIOTROPIUM BROMIDE DPI 5 CAP/KIT (18 MCG/CAP) IH SCH (09:08)
[2017-03-30] MEDS: BUDESONIDE/FORMOTEROL 160-4.5 MCG 60 PUFF/6 GM MDI IH SCH ×2 (09:08→22:17)
[2017-03-30] MEDS: MULTIVITAMIN TABLET PO SCH (09:09)
[2017-03-30] MEDS: FERROUS SULFATE 325 MG TABLET PO SCH (09:09)
[2017-03-30] MEDS: CITALOPRAM HYDROBROMIDE 20 MG TABLET PO SCH (09:09)
[2017-03-30] MEDS: LOSARTAN POTASSIUM 50 MG TABLET PO SCH (09:10)
[2017-03-30] MEDS: METHOCARBAMOL 500 MG TABLET PO SCH ×2 (09:11→22:16)
[2017-03-30] MEDS: ENOXAPARIN SODIUM INJ 40 MG/0.4 ML DISP.SYRIN SUBCUT SCH (09:11)
[2017-03-30] MEDS: AMLODIPINE BESYLATE 5 MG TABLET PO SCH (09:11)
[2017-03-30] MEDS: OXYCODONE-ACETAMINOPHEN 5-325 MG TABLET PO PRN (09:12)
[2017-03-30] MEDS: OXYCODONE HCL IR 5 MG TABLET PO PRN (09:12)
[2017-03-30] MEDS: PREDNISONE 5 MG TABLET PO SCH (09:13)
[2017-03-30] MEDS: CLONIDINE HCL 0.1 MG TABLET PO SCH ×2 (09:13→22:16)
--- NOTE | 2017-03-30 10:48 | PDOC PROGRESS REPORT ---
Subjective Progress Note for:: 03/30/17 Subjective:: Patient is currently doing same. Patient CT of the chest increasing the size of the tumor Since currently see outpatient oncology for the lung cancer Still have a significant emphysema and currently on a BiPAP Since denied any chest pain but still having some short of breath Reason For Visit: OBSTRUCTIVE CHRONIC BRONCHITIS WITH EXACERBATION Physical Exam Vital Signs: Temp Pulse Resp BP Pulse Ox 98.0 F 105 H 24 H 123/63 96 03/30/17 08:00 03/30/17 08:23 03/30/17 08:23 03/30/17 08:00 03/30/17 08:23 Intake & Output 03/29/17 03/30/17 03/31/17 06:59 06:59 06:59 Intake Total 630 3192 Output Total 1750 1350 Balance -1120 1842 Weight 73.3 kg 73.3 kg General appearance: PRESENT: no acute distress, well-developed, well-nourished Head exam: PRESENT: atraumatic, normocephalic Eye exam: PRESENT: conjunctiva pink, EOMI, PERRLA. ABSENT: scleral icterus Ear exam: PRESENT: normal external ear exam Mouth exam: PRESENT: moist, tongue midline Neck exam: PRESENT: full ROM. ABSENT: carotid bruit, JVD, lymphadenopathy, thyromegaly Respiratory exam: PRESENT: decreased breath sounds Cardiovascular exam: PRESENT: RRR. ABSENT: diastolic murmur, rubs, systolic murmur Pulses: PRESENT: normal dorsalis pedis pul, +2 pedal pulses bilateral Vascular exam: PRESENT: normal capillary refill GI/Abdominal exam: PRESENT: normal bowel sounds, soft. ABSENT: distended, guarding, mass, organolmegaly, rebound, tenderness Rectal exam: PRESENT: deferred Neurological exam: PRESENT: alert, awake, oriented to person, oriented to place , oriented to time, oriented to situation, CN II-XII grossly intact. ABSENT: motor sensory deficit Psychiatric exam: PRESENT: anxious, appropriate affect, normal mood. ABSENT: homicidal ideation, suicidal ideation Skin exam: PRESENT: dry, intact, warm. ABSENT: cyanosis, rash Results Laboratory Results: 03/30/17 06:08 03/30/17 06:08 03/30/17 03/30/17 06:08 06:08 WBC 10.9 H RBC 3.29 L Hgb 9.6 L Hct 28.8 L MCV 88 MCH 29.2 MCHC 33.4 RDW 16.3 H Plt Count 317 Seg Neutrophils % 76.2 Lymphocytes % 11.6 L Monocytes % 8.0 Eosinophils % 3.2 Basophils % 1.0 Absolute Neutrophils 8.3 H Absolute Lymphocytes 1.3 Absolute Monocytes 0.9 Absolute Eosinophils 0.4 Absolute Basophils 0.1 Sodium 148.0 H Potassium 4.2 Chloride 115 H Carbon Dioxide 25 Anion Gap 8 BUN 26 H Creatinine 0.92 Est GFR ( Amer) > 60 Est GFR (Non-Af Amer) > 60 Glucose 74 L Calcium 8.6 03/28/17 11:58 Soliman Catheter Urine Culture - Final Mixed Urogenital Caron Impressions: Chest CT 03/28/17 00:00 IMPRESSION: 1. Significant increase in size of pleural-based left lower lobe lung mass now measuring 6.2 cm. This is concerning malignancy. This lesion would be amenable to percutaneous biopsy. 2. Central lobular emphysematous changes. 3. Coronary artery atherosclerosis. This exam was performed according to our departmental dose-optimization program, which includes automated exposure control, adjustment of the mA and/or kV according to patient size and/or use of iterative reconstruction technique. Chest X-Ray 03/28/17 09:37 IMPRESSION: Chronic lung changes with pneumonia the left lung as described. Assessment & Plan - Diagnosis (1) Acute hypercapnic respiratory failure Is this a current diagnosis for this admission?: Yes Plan: Continues on a BiPAP consult the pulmonary (2) COPD exacerbation Is this a current diagnosis for this admission?: Yes Plan: This a nebulizer treatments (3) Hypertension Qualifiers: Hypertension type: unspecified secondary hypertension Qualified Code(s): I15.9 - Secondary hypertension, unspecified Is this a current diagnosis for this admission?: Yes (4) Lung cancer Qualifiers: Lung location: unspecified part of lung Is this a current diagnosis for this admission?: Yes Plan: Follow with oncology - Time Time Spent with patient: 15-24 minutes Medications reviewed and adjusted accordingly: Yes Anticipated discharge: Other Within: Other - Inpatient Certification Medical Necessity: Need Close Monitoring Due to Risk of Patient Decompensation, Need for IV Antibiotics Post Hospital Care: D/C Grain Blender Documentation - Plan Summary Plan Summary: Continues to current medication
--- NOTE | 2017-03-30 16:59 | PDOC CONSULTATION ---
Consultation Consult Date: 03/29/17 Attending physician:: MORRIS CHAN Consult reason:: Cough/Wheezing/chest pain History of Present Illness Admission Date/PCP: 03/28/17 11:49 NATACHA ENGLAND MD History of Present Illness: HUNTER GRANADOS is a 72 year old, who was [facility] for increased shortness of breath and cough productive of green phlegm upon presentation to the emergency room she was placed on BiPAP which slowly improved her respiratory distress she is noted she is DNR and will not be intubated. 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 Merino for several years she refused any treatment as she prioritized other medical problems above treatment. She denies hemoptysis her PPD status is negative dates unknown she has no history of chronic lung disease as a child and adolescent she admits to exposure to passive smoke as a child as well as an adult she herself smoked 2 packs a day for 40 years and continues to smoke up until the time of admission although she is O2. She has no pets no recent travel she denies angina-like chest pain for 2-3 pillow occasional PND occasional nocturnal cough and intermittent episodes of edema. She is unaware of any snoring but admits to restless sleep nocturia 3 unrestful sleep and excessive daytime somnolence. Past Medical History Cardiac Medical History: Reports: Hyperlipidema, Hypertension Denies: Coronary Artery Disease, Myocardial Infarction Pulmonary Medical History: Reports: Asthma, Bronchitis, Chronic Obstructive Pulmonary Disease (COPD), Pneumonia, Respiratory Failure Denies: Tuberculosis EENT Medical History: Denies: Ears, Nose, Throat Neurological Medical History: Denies: Migraine, Seizures Endocrine Medical History: Denies: Diabetes Mellitus Type 1, Diabetes Mellitus Type 2, Gestational Diabetes, Obesity Renal/ Medical History: Denies: Nephrolithiasis Malignancy Medical History: Reports: Lung Cancer GI Medical History: Reports: Gastroesophageal Reflux Disease Denies: Crohn's Disease, Ulcerative Colitis Musculoskeltal Medical History: Reports: Arthritis Psychiatric Medical History: Reports: Depression, Tobacco Dependency Traumatic Medical History: Denies: Traumatic Brain Injury Hematology: Reports: Anemia Denies: Sickle Cell Disease Infectious Medical History: Reports: 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 Denies: Hepatitis B, Hepatitis C Past Surgical History Past Surgical History: Reports: Appendectomy, Cholecystectomy, Hysterectomy, Orthopedic Surgery Social History Information Source: Patient, [facility] Records 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 Lives with: Jail Smoking Status: Former Smoker Cigarettes Packs Per Day: 2 Number of Years Smokin Passive smoke exposure as: Both Frequency of Alcohol Use: None Hx Recreational Drug Use: No Drugs: None Hx Prescription Drug Abuse: No Do you have pets?: No Have you had any respiratory illnesses as a child?: No Have you been exposed to any sick contacts recently?: No Have you had any recent respiratory illnesses?: No Have you travelled outside of [place] in the past 12 months?: No - Advance Directive Resuscitation Status: Full Code Family History Family History: None, Arthritis, COPD, Hypertension, Malignancy Parental Family History Reviewed: Yes Children Family History Reviewed: Yes Sibling(s) Family History Reviewed.: Yes Medication/Allergy Home Medications: Methocarbamol [Robaxin 500 mg Tablet] 500 mg PO BID #10 tablet 12/26/16 Albuterol Sulfate [Proair HFA] 2 puff IH Q4HP PRN 12/31/16 Amlodipine Besylate [Norvasc 5 mg Tablet] 5 mg PO DAILY 12/31/16 Atorvastatin Calcium [Lipitor 10 mg Tablet] 10 mg PO QHS 12/31/16 Budesonide/Formoterol Fumarate [Symbicort HFA 160-4.5 mcg Inhaler 6 gm] 1 puff IH Q12 12/31/16 Citalopram Hydrobromide [Celexa 20 mg Tablet] 20 mg PO DAILY 12/31/16 Clonidine HCl [Catapres 0.1 mg Tablet] 0.1 mg PO Q12 12/31/16 Ergocalciferol (Vitamin D2) [Drisdol 50,000 unit (1.25MG) Capsule] 50,000 unit PO [id number] 12/31/16 Ferrous Sulfate [Feosol 325 mg Tablet] 325 mg PO DAILY 12/31/16 Ipratropium/Albuterol Sulfate [Duoneb 3 ml Ampul] 3 ml NEB [id number] PRN 12/31/16 Levocetirizine Dihydrochloride [Xyzal] 5 mg PO QHS 12/31/16 Losartan Potassium [Cozaar 100 mg Tablet] 100 mg PO DAILY 12/31/16 Mirtazapine [Remeron 15 mg Tablet] 7.5 mg PO QHS 12/31/16 Omeprazole 40 mg PO QAM 12/31/16 Oxycodone HCl/Acetaminophen [Percocet 10-325 mg Tablet] 1 each PO TIDP PRN 12/31 Pregabalin [Lyrica 75 mg Capsule] 75 mg PO Q8 12/31/16 Tiotropium [place] [Spiriva Handihaler 18 mcg/dose (30 Dose)] 1 cap IH DAILY Menthol [Biofreeze] 1 applic TP QIDP PRN 01/28/17 Multivitamin with Minerals [One Daily Plus Minerals] 1 each PO DAILY 01/28/17 Prednisone 5 mg PO DAILY #500 tab.ds.pk 02/08/17 Allergies/Adverse Reactions: Penicillins Allergy (Verified 03/28/17 11:07) Hives Review of Systems Constitutional: PRESENT: anorexia, chills, fatigue, fever(s), weight loss Eyes: ABSENT: visual disturbances Ears: ABSENT: hearing changes Nose, Mouth, and Throat: ABSENT: mouth pain, sore throat Cardiovascular: PRESENT: dyspnea on exertion. ABSENT: palpitations Respiratory: PRESENT: cough, dyspnea. ABSENT: hemoptysis Gastrointestinal: ABSENT: abdominal pain, bloating, coffee ground emesis, constipation, diarrhea, dysphagia, hematemesis, hematochezia, melena Genitourinary: PRESENT: nocturia. ABSENT: difficulty urinating, dysuria, hematuria Musculoskeletal: ABSENT: deformity, joint swelling Integumentary: ABSENT: pruritus, rash Neurological: ABSENT: abnormal speech, confusion, convulsions Psychiatric: ABSENT: hallucinations, homidical ideation, suicidal ideation Endocrine: ABSENT: cold intolerance, heat intolerance, menstrual abnormalities Hematologic/Lymphatic: PRESENT: easy bruising Physical Exam Vital Signs: Temp Pulse Resp BP Pulse Ox 97.7 F 89 20 101/52 L 98 03/29/17 11:20 03/29/17 11:20 03/29/17 11:20 03/29/17 11:20 03/29/17 11:20 Intake & Output 03/28/17 03/29/17 03/30/17 06:59 06:59 06:59 Intake Total 630 Output Total 1750 Balance -1120 Weight 73.3 kg General appearance: PRESENT: cooperative, mild distress, thin, well-developed, well-nourished. ABSENT: no acute distress, disheveled, hard of hearing, morbidly obese, obese, severe distress Head exam: PRESENT: atraumatic, normocephalic Eye exam: PRESENT: conjunctiva pale, EOMI. ABSENT: conjunctival injection, conjunctiva pink, nystagmus, periorbital swelling, scleral icterus Mouth exam: PRESENT: dry mucosa, neck supple, tongue midline. ABSENT: laceration, moist Teeth exam: PRESENT: poor dentation Neck exam: ABSENT: carotid bruit, JVD, lymphadenopathy, thyromegaly, tracheal deviation, tracheostomy Respiratory exam: PRESENT: crackles, decreased breath sounds, prolonged expiratory phas, rhonchi, symmetrical, unlabored, wheezes. ABSENT: accessory muscle use, chest wall tenderness, clear to auscultation ghulam, rales, retraction , stridor, tachypnea Cardiovascular exam: PRESENT: RRR, +S1, +S2. ABSENT: irregular rhythm, rubs Pulses: PRESENT: normal radial pulses GI/Abdominal exam: PRESENT: normal bowel sounds, soft. ABSENT: distended, guarding, mass, organolmegaly, rebound, tenderness Extremities exam: ABSENT: clubbing, joint swelling Musculoskeletal exam: ABSENT: ambulatory, deformity, dislocation Neurological exam: PRESENT: alert, awake Psychiatric exam: PRESENT: flat affect Skin exam: PRESENT: dry, warm Results Laboratory Results: 03/29/17 05:24 03/29/17 05:24 03/28/17 03/28/17 03/28/17 11:58 21:47 21:47 WBC 9.0 RBC 3.37 L Hgb 9.7 L Hct 29.6 L MCV 88 MCH 28.8 MCHC 32.7 RDW 16.1 H Plt Count 337 Seg Neutrophils % Lymphocytes % Monocytes % Eosinophils % Basophils % Absolute Neutrophils Absolute Lymphocytes Absolute Monocytes Absolute Eosinophils Absolute Basophils Carbonic Acid HCO3/H2CO3 Ratio ABG pH ABG pCO2 ABG pO2 ABG HCO3 ABG O2 Saturation ABG Base Excess FiO2 Sodium Potassium Chloride Carbon Dioxide Anion Gap BUN Creatinine 0.95 Est GFR ( Amer) > 60 Est GFR (Non-Af Amer) 58 L Glucose Calcium Urine Color YELLOW Urine Appearance SLIGHTLY-CLOUDY Urine pH 5.0 Ur Specific [place] 1.010 Urine Protein NEGATIVE Urine Glucose (UA) NEGATIVE Urine Ketones TRACE H Urine Blood SMALL H Urine Nitrite NEGATIVE Ur Leukocyte Esterase SMALL H Urine WBC (Auto) 6 Urine RBC (Auto) 1 03/29/17 03/29/17 03/29/17 05:24 05:24 05:56 WBC 8.9 RBC 3.11 L Hgb 9.1 L Hct 27.4 L MCV 88 MCH 29.1 MCHC 33.1 RDW 15.9 H Plt Count 309 Seg Neutrophils % 81.3 H Lymphocytes % 12.8 L Monocytes % 5.4 Eosinophils % 0.1 Basophils % 0.4 Absolute Neutrophils 7.2 Absolute Lymphocytes 1.1 Absolute Monocytes 0.5 Absolute Eosinophils 0.0 Absolute Basophils 0.0 Carbonic Acid 1.17 HCO3/H2CO3 Ratio 16:1 ABG pH 7.31 L ABG pCO2 38.8 ABG pO2 105.1 H ABG HCO3 18.9 L ABG O2 Saturation 97.4 ABG Base Excess -6.9 FiO2 28% Sodium 144.0 Potassium 5.0 Chloride 113 H Carbon Dioxide 18 L Anion Gap 13 BUN 32 H Creatinine 0.95 Est GFR ( Amer) > 60 Est GFR (Non-Af Amer) 58 L Glucose 86 Calcium 8.4 Urine Color Urine Appearance Urine pH Ur Specific [place] Urine Protein Urine Glucose (UA) Urine Ketones Urine Blood Urine Nitrite Ur Leukocyte Esterase Urine WBC (Auto) Urine RBC (Auto) 03/28/17 11:58 Soliman Catheter Urine Culture - Final Mixed Urogenital Caron Impressions: Chest CT 03/28/17 00:00 IMPRESSION: 1. Significant increase in size of pleural-based left lower lobe lung mass now measuring 6.2 cm. This is concerning malignancy. This lesion would be amenable to percutaneous biopsy. 2. Central lobular emphysematous changes. 3. Coronary artery atherosclerosis. This exam was performed according to our departmental dose-optimization program, which includes automated exposure control, adjustment of the mA and/or kV according to patient size and/or use of iterative reconstruction technique. Chest X-Ray 03/28/17 09:37 IMPRESSION: Chronic lung changes with pneumonia the left lung as described. Assessment & Plan - Diagnosis (1) Acute hypercapnic respiratory failure Is this a current diagnosis for this admission?: Yes Plan: With non-impact phase of positive pressure ventilation minimal oxygen use keep SaO2 greater than 90% Generic Name Dose Route Start Last Admin Trade Name Freq PRN Reason Stop Dose Admin Budesonide/Formoterol Fumarate 1 puff 03/28/17 22:00 03/30/17 09:08 Symbicort Hfa 160-4.5 Mcg Inhaler 6 Gm 04/27/17 21:59 1 puff Q12 [facility] Prednisone 5 mg 03/29/17 10:00 03/30/17 09:13 Deltasone 5 Mg Tablet PO 04/28/17 09:59 5 mg DAILY DEISI Tiotropium [place] 1 cap 03/29/17 10:00 03/30/17 09:08 Spiriva Handihaler 5 Cap/Kit (18 Mcg/Cap) 04/28/17 09:59 1 cap DAILY DEISI Albuterol/Ipratropium 3 ml 03/29/17 00:00 03/30/17 16:06 Duoneb 3 Ml Ampul NEB 04/28/17 00:00 3 ml RTQ4 [facility] 05/13/13 16:56 MRSA Surveillance Culture - Final Nasal Swab - Both MRSA RECOVERED He is to increase his prednisone to 20 mg p.o. daily. Consider discontinuing DuoNeb or Spiriva are both muscarinic agents. (2) Lung cancer Qualifiers: Lung location: unspecified part of lung Is this a current diagnosis for this admission?: Yes Plan: As per oncology and radiation oncology (3) MRSA pneumonia Qualifiers: Laterality: unspecified laterality Lung location: unspecified part of lung Qualified Code(s): J15.212 - Pneumonia due to Methicillin resistant Staphylococcus aureus Is this a current diagnosis for this admission?: Yes Plan: Airborne precautions appropriate cultures
[2017-03-30] MEDS: CETIRIZINE 5 MG TABLET PO SCH (22:16)
[2017-03-30] MEDS: ATORVASTATIN CALCIUM 10 MG TABLET PO SCH (22:16)
[2017-03-30] MEDS: MIRTAZAPINE 15 MG TABLET PO SCH (22:17)
[2017-03-30] MEDS ORDERED: LEVALBUTEROL HCL NEB 0.63 MG/3 ML AMPUL NEB ONE (23:11)
[2017-03-30] MEDS ORDERED: METHYLPREDNISOLONE INJ 125 MG/2 ML SDV ONE (23:12)
[2017-03-30] MEDS ORDERED: LEVALBUTEROL HCL NEB 0.63 MG/3 ML AMPUL NEB PRN (23:24)
[2017-03-30] MEDS ORDERED: METHYLPREDNISOLONE INJ 125 MG/2 ML SDV IV ONE (23:30)
[2017-03-31] MEDS: IPRATROPIUM/ALBUTEROL 0.5-2.5 MG/3 ML AMPUL NEB SCH ×5 (04:17→20:01)
[2017-03-31] MEDS: PREGABALIN 75 MG CAPSULE PO SCH ×3 (05:55→21:12)
[2017-03-31] MEDS: BUSPIRONE HCL 10 MG TABLET PO SCH ×3 (05:55→21:12)
[2017-03-31] MEDS: LANSOPRAZOLE 30 MG TAB.RAP.DR PO SCH (05:57)
[2017-03-31] MEDS: OXYCODONE HCL IR 5 MG TABLET PO PRN ×3 (08:25→18:51)
[2017-03-31] MEDS: OXYCODONE-ACETAMINOPHEN 5-325 MG TABLET PO PRN ×3 (08:26→18:52)
[2017-03-31 08:44] LABS: ANION GAP 10 (5-19); BLOOD UREA NITROGEN 18 mg/dL (7-20); CALCIUM 8.5 mg/dL (8.4-10.2); CARBON DIOXIDE 22 mmol/L (22-30); CHLORIDE 113 mmol/L (98-107); GLUCOSE 132 mg/dL (75-110); POTASSIUM 4.7 mmol/L (3.6-5.0); SODIUM 145.2 mmol/L (137-145)
[2017-03-31] MEDS: CLONIDINE HCL 0.1 MG TABLET PO SCH ×2 (10:19→21:11)
[2017-03-31] MEDS: AMLODIPINE BESYLATE 5 MG TABLET PO SCH (10:19)
[2017-03-31] MEDS: PREDNISONE 5 MG TABLET PO SCH (10:19)
[2017-03-31] MEDS: MULTIVITAMIN TABLET PO SCH (10:20)
[2017-03-31] MEDS: FERROUS SULFATE 325 MG TABLET PO SCH (10:20)
[2017-03-31] MEDS: METHOCARBAMOL 500 MG TABLET PO SCH ×2 (10:20→21:12)
[2017-03-31] MEDS: CITALOPRAM HYDROBROMIDE 20 MG TABLET PO SCH (10:21)
[2017-03-31] MEDS: LOSARTAN POTASSIUM 50 MG TABLET PO SCH (10:21)
[2017-03-31] MEDS: LEVOFLOXACIN 500 MG/D5W RTU 500 MG/100 ML RTUPB IV SCH (10:22)
[2017-03-31] MEDS: ENOXAPARIN SODIUM INJ 40 MG/0.4 ML DISP.SYRIN SUBCUT SCH (10:23)
[2017-03-31] MEDS: TIOTROPIUM BROMIDE DPI 5 CAP/KIT (18 MCG/CAP) IH SCH (10:24)
[2017-03-31] MEDS: BUDESONIDE/FORMOTEROL 160-4.5 MCG 60 PUFF/6 GM MDI IH SCH ×2 (10:25→21:11)
--- NOTE | 2017-03-31 17:52 | PDOC PROGRESS REPORT ---
Subjective Progress Note for:: 03/31/17 Subjective:: Patient was seen by the bedside, I discussed with her about the lung mass that has increased in size since she was first diagnosed in January 2016 with a nodule, she seems to be suggesting that she may want treatment for this mass, I spoke to the oncologist, she will come to discuss with her the plan of care for the mass Reason For Visit: ACUTE HYPERCAPNIC RESPIRATORY FAILURE,COPD,HTN Physical Exam Vital Signs: Temp Pulse Resp BP Pulse Ox 97.4 F 94 20 112/62 98 03/31/17 15:16 03/31/17 16:01 03/31/17 16:01 03/31/17 15:16 03/31/17 16:01 Intake & Output 03/30/17 03/31/17 04/01/17 06:59 06:59 06:59 Intake Total 3192 3613 236 Output Total 1350 2250 550 Balance 1842 1363 -314 Weight 73.3 kg 77.2 kg General appearance: PRESENT: mild distress Eye exam: PRESENT: PERRLA Respiratory exam: PRESENT: wheezes Cardiovascular exam: PRESENT: +S1, +S2 GI/Abdominal exam: PRESENT: soft Neurological exam: PRESENT: alert Results Laboratory Results: 03/30/17 06:08 03/31/17 07:43 03/31/17 07:43 Sodium 145.2 H Potassium 4.7 Chloride 113 H Carbon Dioxide 22 Anion Gap 10 BUN 18 Creatinine 0.83 Est GFR ( Amer) > 60 Est GFR (Non-Af Amer) > 60 Glucose 132 H Calcium 8.5 Impressions: Chest CT 03/28/17 00:00 IMPRESSION: 1. Significant increase in size of pleural-based left lower lobe lung mass now measuring 6.2 cm. This is concerning malignancy. This lesion would be amenable to percutaneous biopsy. 2. Central lobular emphysematous changes. 3. Coronary artery atherosclerosis. This exam was performed according to our departmental dose-optimization program, which includes automated exposure control, adjustment of the mA and/or kV according to patient size and/or use of iterative reconstruction technique. Chest X-Ray 03/28/17 09:37 IMPRESSION: Chronic lung changes with pneumonia the left lung as described. Assessment & Plan - Diagnosis (1) Acute hypercapnic respiratory failure Is this a current diagnosis for this admission?: Yes (2) Very severe chronic obstructive pulmonary disease Is this a current diagnosis for this admission?: Yes (3) HTN (hypertension) Qualifiers: Hypertension type: essential hypertension Qualified Code(s): I10 - Essential (primary) hypertension Is this a current diagnosis for this admission?: Yes (4) Malignant neoplasm of lower lobe, left bronchus or lung Is this a current diagnosis for this admission?: Yes
[2017-03-31] MEDS: ATORVASTATIN CALCIUM 10 MG TABLET PO SCH (21:11)
[2017-03-31] MEDS: CETIRIZINE 5 MG TABLET PO SCH (21:11)
[2017-03-31] MEDS: MIRTAZAPINE 15 MG TABLET PO SCH (21:11)
[2017-03-31] MEDS: NORMAL SALINE 1000 ML 1,000 ML IV PRN (21:31)
[2017-04-01] MEDS: IPRATROPIUM/ALBUTEROL 0.5-2.5 MG/3 ML AMPUL NEB SCH ×6 (00:20→20:15)
[2017-04-01 05:47] LABS: ANION GAP 8 (5-19); BLOOD UREA NITROGEN 19 mg/dL (7-20); CALCIUM 8.5 mg/dL (8.4-10.2); CARBON DIOXIDE 23 mmol/L (22-30); CHLORIDE 115 mmol/L (98-107); GLUCOSE 104 mg/dL (75-110); SODIUM 145.7 mmol/L (137-145)
[2017-04-01 06:04] LABS: POTASSIUM 3.7 mmol/L (3.6-5.0)
[2017-04-01] MEDS: BUSPIRONE HCL 10 MG TABLET PO SCH ×3 (06:24→22:00)
[2017-04-01] MEDS: LANSOPRAZOLE 30 MG TAB.RAP.DR PO SCH (06:25)
[2017-04-01] MEDS: PREGABALIN 75 MG CAPSULE PO SCH ×3 (06:25→22:00)
[2017-04-01] MEDS: OXYCODONE-ACETAMINOPHEN 5-325 MG TABLET PO PRN ×3 (09:30→18:32)
[2017-04-01] MEDS: OXYCODONE HCL IR 5 MG TABLET PO PRN ×3 (09:31→18:32)
[2017-04-01] MEDS: CLONIDINE HCL 0.1 MG TABLET PO SCH ×2 (09:32→21:59)
[2017-04-01] MEDS: AMLODIPINE BESYLATE 5 MG TABLET PO SCH (09:33)
[2017-04-01] MEDS: LEVOFLOXACIN 750 MG TABLET PO SCH (09:33)
[2017-04-01] MEDS: PREDNISONE 5 MG TABLET PO SCH (09:33)
[2017-04-01] MEDS: CITALOPRAM HYDROBROMIDE 20 MG TABLET PO SCH (09:34)
[2017-04-01] MEDS: METHOCARBAMOL 500 MG TABLET PO SCH ×2 (09:34→21:59)
[2017-04-01] MEDS: LOSARTAN POTASSIUM 50 MG TABLET PO SCH (09:34)
[2017-04-01] MEDS: BUDESONIDE/FORMOTEROL 160-4.5 MCG 60 PUFF/6 GM MDI IH SCH ×2 (09:35→21:58)
[2017-04-01] MEDS: TIOTROPIUM BROMIDE DPI 5 CAP/KIT (18 MCG/CAP) IH SCH (09:35)
[2017-04-01] MEDS: ENOXAPARIN SODIUM INJ 40 MG/0.4 ML DISP.SYRIN SUBCUT SCH (09:36)
[2017-04-01] MEDS ORDERED: TOBRAMYCIN SULFATE INJ 80 MG/2 ML VIAL NEB SCH (10:15)
[2017-04-01] MEDS ORDERED: TOBRAMYCIN SULFATE NEB 40 MG/ML 30 ML NEB ONE (11:00)
[2017-04-01] MEDS ORDERED: CEFTAZIDIME PENTAHYDRATE 1 GM in DEXTROSE 5%-WATER 50 ML IV ONE (11:30)
--- NOTE | 2017-04-01 12:06 | RADIOLOGY REPORT (SQ) ---
EXAM DESCRIPTION: CHEST SINGLE VIEW COMPLETED DATE/TIME: 04/01/2017 10:49 am REASON FOR STUDY: pna COMPARISON: 03/28/2017 EXAM PARAMETERS: NUMBER OF VIEWS: One view. TECHNIQUE: Single frontal radiographic view of the chest acquired. RADIATION DOSE: NA LIMITATIONS: None. FINDINGS: LUNGS AND PLEURA: Pleural-based left lung mass is unchanged. No pneumothorax. MEDIASTINUM AND HILAR STRUCTURES: Stable. HEART AND VASCULAR STRUCTURES: Stable heart size. BONES: No acute findings. HARDWARE: None in the chest. OTHER: No other significant finding. IMPRESSION: Left lung mass. No significant change. TECHNICAL DOCUMENTATION: JOB ID: [id number] [email or web address] All Rights Reserved
[2017-04-01] MEDS: MULTIVITAMIN TABLET PO SCH (12:17)
[2017-04-01] MEDS: FERROUS SULFATE 325 MG TABLET PO SCH (12:17)
--- NOTE | 2017-04-01 12:53 | PDOC PROGRESS REPORT ---
Subjective Progress Note for:: 04/01/17 Subjective:: I am tired Reason For Visit: ACUTE HYPERCAPNIC RESPIRATORY FAILURE,COPD,HTN Physical Exam Vital Signs: Temp Pulse Resp BP Pulse Ox 97.4 F 82 22 H 110/58 L 97 04/01/17 07:16 04/01/17 08:37 04/01/17 08:37 04/01/17 07:16 04/01/17 08:37 Intake & Output 03/31/17 04/01/17 04/02/17 06:59 06:59 06:59 Intake Total 3613 2919 Output Total 2250 1650 Balance 1363 1269 Weight 77.2 kg General appearance: PRESENT: no acute distress, cooperative, disheveled, obese, well-developed. ABSENT: mild distress, morbidly obese, severe distress, thin Head exam: PRESENT: atraumatic, normocephalic Eye exam: PRESENT: conjunctiva pale, EOMI. ABSENT: conjunctival injection, conjunctiva pink, nystagmus, periorbital swelling, scleral icterus Mouth exam: PRESENT: dry mucosa, neck supple, tongue midline. ABSENT: laceration, moist Neck exam: ABSENT: carotid bruit, JVD, lymphadenopathy, thyromegaly, tracheal deviation, tracheostomy Respiratory exam: PRESENT: decreased breath sounds, prolonged expiratory phas, rhonchi, symmetrical, unlabored. ABSENT: accessory muscle use, clear to auscultation ghulam, crackles, rales, retraction, stridor, tachypnea Cardiovascular exam: PRESENT: RRR, +S1, +S2. ABSENT: irregular rhythm, rubs Pulses: PRESENT: normal radial pulses GI/Abdominal exam: PRESENT: normal bowel sounds, soft. ABSENT: distended, guarding, mass, organolmegaly, rebound, tenderness Extremities exam: ABSENT: clubbing, joint swelling Musculoskeletal exam: ABSENT: deformity, dislocation Neurological exam: PRESENT: awake Skin exam: PRESENT: dry, warm Results Laboratory Results: 03/30/17 06:08 04/01/17 05:11 04/01/17 05:11 Sodium 145.7 H Potassium 3.7 D Chloride 115 H Carbon Dioxide 23 Anion Gap 8 BUN 19 Creatinine 0.81 Est GFR ( Amer) > 60 Est GFR (Non-Af Amer) > 60 Glucose 104 Calcium 8.5 Impressions: Chest CT 03/28/17 00:00 IMPRESSION: 1. Significant increase in size of pleural-based left lower lobe lung mass now measuring 6.2 cm. This is concerning malignancy. This lesion would be amenable to percutaneous biopsy. 2. Central lobular emphysematous changes. 3. Coronary artery atherosclerosis. This exam was performed according to our departmental dose-optimization program, which includes automated exposure control, adjustment of the mA and/or kV according to patient size and/or use of iterative reconstruction technique. Chest X-Ray 03/28/17 09:37 IMPRESSION: Chronic lung changes with pneumonia the left lung as described. Assessment & Plan - Diagnosis (1) Acute hypercapnic respiratory failure Is this a current diagnosis for this admission?: Yes Plan: With non-impact phase of positive pressure ventilation minimal oxygen use keep SaO2 greater than 90% Generic Name Dose Route Start Last Admin Trade Name Freq PRN Reason Stop Dose Admin Budesonide/Formoterol Fumarate 1 puff 03/28/17 22:00 03/30/17 09:08 Symbicort Hfa 160-4.5 Mcg Inhaler 6 Gm 04/27/17 21:59 1 puff Q12 [facility] Prednisone 5 mg 03/29/17 10:00 03/30/17 09:13 Deltasone 5 Mg Tablet PO 04/28/17 09:59 5 mg DAILY [facility] Tiotropium [place] 1 cap 03/29/17 10:00 03/30/17 09:08 Spiriva Handihaler 5 Cap/Kit (18 Mcg/Cap) 04/28/17 09:59 1 cap DAILY [facility] Albuterol/Ipratropium 3 ml 03/29/17 00:00 03/30/17 16:06 Duoneb 3 Ml Ampul [facility] 04/28/17 00:00 3 ml RTQ4 [facility] 05/13/13 16:56 MRSA Surveillance Culture - Final Nasal Swab - Both MRSA RECOVERED He is to increase his prednisone to 20 mg p.o. daily. Consider discontinuing DuoNeb or Spiriva are both muscarinic agents. (2) Lung cancer Qualifiers: Lung location: unspecified part of lung Is this a current diagnosis for this admission?: Yes Plan: Hospice versus comfort care (3) MRSA pneumonia Qualifiers: Laterality: unspecified laterality Lung location: unspecified part of lung Qualified Code(s): J15.212 - Pneumonia due to Methicillin resistant Staphylococcus aureus Is this a current diagnosis for this admission?: Yes Plan: Airborne precautions appropriate cultures
--- NOTE | 2017-04-01 16:03 | CONSULTATION REPORT E ---
Consultation Report NAME: HUNTER GRANADOS : 1945 AGE: 72Y DATE: 04/01/2017 332 B TO: SARAH VARNER M.D. FROM: NATACHA ENGLAND M.D. Requesting Physician REASON FOR REFERRAL: Lung cancer. HISTORY OF PRESENT ILLNESS: The patient is a 72-year-old woman who was diagnosed with [id number] lung cancer in January of 2016. She had presented with an abnormal x-ray, and a PET CT had shown a small left upper lobe pulmonary nodule. This was biopsied and said to be consistent with squamous cell lung cancer. She was seen at [facility], and the plan was to have her undergo Cyberknife at that time. She, however, has had multiple hospital admissions for pneumonia, GI bleed, back pain, and has not been able to make the appointment. More recently, I saw her in the office for an evaluation to rule out a bleeding disorder so she undergo a vertebroplasty. The vertebroplasty was scheduled for March 17. However, she tells me that it was not done, that it was re-scheduled. At that time, she did not have any evidence of hemolysis, and her hemoglobin was also 10.5. Her anemia appeared to be more consistent with chronic disease. She was admitted with symptoms of bronchitis and difficulty breathing on March 28, 2017. She had a CT chest that now shows a significant increase in size of a pleural-based left lower lobe nodule. It now measures 6.2 x 4.8. This mass had initially measured 15 mm in diameter. I had a long discussion with her at the bedside. She is on oxygen and was lying in bed. She states that she would like treatment if possible. PAST MEDICAL HISTORY: As stated above is: 1. Lung cancer. 2. Hyperlipidemia. 3. Hypertension. 4. Chronic pulmonary disease. 5. Gastroesophageal reflux disease. 6. Osteoporosis. 7. Back pain. PAST SURGICAL HISTORY: Surgeries include: 1. Appendectomy. 2. Cholecystectomy. 3. Hysterectomy. 4. Orthopedic surgery. PHYSICAL EXAMINATION: On exam she is an elderly woman. She is awake and answers all questions appropriately. DIAGNOSTIC STUDIES: Her CT scan results most recent as discussed above. IMPRESSION AND PLAN: The patient is a 72-year-old woman with lung cancer, a prior biopsy had shown squamous cell cancer. This biopsy was done more than a year ago. At that time, she had a very small nodule that was amenable to a Cyberknife. I explained to her that at this time Cyberknife would not be an option. I explained that it would be important to stage her and possibly obtain another biopsy since the last biopsy was done more than a year ago. I will also suggest consultation with Dr. Kat, Radiation Oncology. In addition, she could also be seen by Pain Management if the vertebroplasty could be done while she is in the hospital. I explained that following discharge, she would need a PET scan to stage the cancer and to decide on the appropriate treatments. The treatments would most probably involve chemoradiation. If she has evidence of distant metastases, than palliative chemotherapy would be the only option that she has. I would be glad to follow her as an outpatient if she is stable enough to be discharged. I thank you for this consultation and allowing me to be part of her care. DICTATING PHYSICIAN: SARAH VARNER M.D. [id number] Y#: [id number] ID: [id number] JOB#: [id number] ACCT: [id number] cc:SARAH VARNER M.D. >
[2017-04-01] MEDS: CEFTAZIDIME PENTAHYDRATE 1 GM in DEXTROSE 5%-WATER 50 ML IV SCH (18:26)
[2017-04-01] MEDS: TOBRAMYCIN SULFATE NEB 40 MG/ML 30 ML NEB SCH (20:15)
--- NOTE | 2017-04-01 20:21 | PDOC PROGRESS REPORT ---
Subjective Progress Note for:: 04/01/17 Subjective:: She was seen by the oncologist, patient still not completely accepted hospice as an option., It is unfortunate that she never received definitive treatment for the lung cancer when it was very small back in January 2016 because of very severe COPD with multiple intercurrent illnesses the mass has now enlarged tremendously to the extent that it is no longer curable it is probably stage 4 cancer now The best plan of care for this patient is probably hospice she was seen by oncologist case was discussed with her , she has progressive lung disease that is unlikely to improve, it was the disease to start with that prevented her from getting treatment with CyberKnife radiation therapy when the mass was extremely small at that time it was a nodule ,is unlikely that the lung disease now will allow us to treat the mass Reason For Visit: ACUTE HYPERCAPNIC RESPIRATORY FAILURE,COPD,HTN Physical Exam Vital Signs: Temp Pulse Resp BP Pulse Ox 98.6 F 89 24 H 109/56 L 98 04/01/17 15:48 04/01/17 16:19 04/01/17 16:19 04/01/17 15:48 04/01/17 16:19 Intake & Output 03/31/17 04/01/17 04/02/17 06:59 06:59 06:59 Intake Total 3613 2919 950 Output Total 2250 1650 1000 Balance 1363 1269 -50 Weight 77.2 kg General appearance: PRESENT: mild distress Eye exam: PRESENT: PERRLA Respiratory exam: PRESENT: wheezes Cardiovascular exam: PRESENT: +S1, +S2 GI/Abdominal exam: PRESENT: soft Neurological exam: PRESENT: alert Results Laboratory Results: 03/30/17 06:08 04/01/17 05:11 04/01/17 05:11 Sodium 145.7 H Potassium 3.7 D Chloride 115 H Carbon Dioxide 23 Anion Gap 8 BUN 19 Creatinine 0.81 Est GFR ( Amer) > 60 Est GFR (Non-Af Amer) > 60 Glucose 104 Calcium 8.5 Impressions: Chest CT 03/28/17 00:00 IMPRESSION: 1. Significant increase in size of pleural-based left lower lobe lung mass now measuring 6.2 cm. This is concerning malignancy. This lesion would be amenable to percutaneous biopsy. 2. Central lobular emphysematous changes. 3. Coronary artery atherosclerosis. This exam was performed according to our departmental dose-optimization program, which includes automated exposure control, adjustment of the mA and/or kV according to patient size and/or use of iterative reconstruction technique. Chest X-Ray 04/01/17 10:15 IMPRESSION: Left lung mass. No significant change. Assessment & Plan - Diagnosis (1) Acute hypercapnic respiratory failure Is this a current diagnosis for this admission?: Yes (2) Very severe chronic obstructive pulmonary disease Is this a current diagnosis for this admission?: Yes (3) HTN (hypertension) Qualifiers: Hypertension type: essential hypertension Qualified Code(s): I10 - Essential (primary) hypertension Is this a current diagnosis for this admission?: Yes (4) Malignant neoplasm of lower lobe, left bronchus or lung Is this a current diagnosis for this admission?: Yes
[2017-04-01] MEDS: CETIRIZINE 5 MG TABLET PO SCH (21:59)
[2017-04-01] MEDS: MIRTAZAPINE 15 MG TABLET PO SCH (21:59)
[2017-04-01] MEDS: ATORVASTATIN CALCIUM 10 MG TABLET PO SCH (21:59)
[2017-04-02] MEDS: IPRATROPIUM/ALBUTEROL 0.5-2.5 MG/3 ML AMPUL NEB SCH ×6 (00:02→20:37)
[2017-04-02] MEDS: CEFTAZIDIME PENTAHYDRATE 1 GM in DEXTROSE 5%-WATER 50 ML IV SCH ×3 (01:42→17:19)
[2017-04-02] MEDS: PREGABALIN 75 MG CAPSULE PO SCH ×3 (05:26→21:13)
[2017-04-02] MEDS: BUSPIRONE HCL 10 MG TABLET PO SCH ×3 (05:26→21:14)
[2017-04-02] MEDS: LANSOPRAZOLE 30 MG TAB.RAP.DR PO SCH (05:26)
[2017-04-02] MEDS: TOBRAMYCIN SULFATE NEB 40 MG/ML 30 ML NEB SCH ×2 (07:59→20:37)
[2017-04-02] MEDS: CITALOPRAM HYDROBROMIDE 20 MG TABLET PO SCH (10:21)
[2017-04-02] MEDS: CLONIDINE HCL 0.1 MG TABLET PO SCH ×2 (10:21→21:14)
[2017-04-02] MEDS: AMLODIPINE BESYLATE 5 MG TABLET PO SCH (10:22)
[2017-04-02] MEDS: PREDNISONE 5 MG TABLET PO SCH (10:22)
[2017-04-02] MEDS: LOSARTAN POTASSIUM 50 MG TABLET PO SCH (10:22)
[2017-04-02] MEDS: LEVOFLOXACIN 750 MG TABLET PO SCH (10:22)
[2017-04-02] MEDS: METHOCARBAMOL 500 MG TABLET PO SCH ×2 (10:22→21:13)
[2017-04-02] MEDS: BUDESONIDE/FORMOTEROL 160-4.5 MCG 60 PUFF/6 GM MDI IH SCH ×2 (10:23→21:14)
[2017-04-02] MEDS: ENOXAPARIN SODIUM INJ 40 MG/0.4 ML DISP.SYRIN SUBCUT SCH (10:23)
[2017-04-02] MEDS: TIOTROPIUM BROMIDE DPI 5 CAP/KIT (18 MCG/CAP) IH SCH (10:23)
[2017-04-02] MEDS: FERROUS SULFATE 325 MG TABLET PO SCH (12:51)
[2017-04-02] MEDS: MULTIVITAMIN TABLET PO SCH (12:52)
--- NOTE | 2017-04-02 13:12 | PDOC PROGRESS REPORT ---
Subjective Progress Note for:: 04/02/17 Subjective:: Awaiting Dr. Merino Reason For Visit: ACUTE HYPERCAPNIC RESPIRATORY FAILURE,COPD,HTN Physical Exam Vital Signs: Temp Pulse Resp BP Pulse Ox 98.0 F 84 20 113/56 L 100 04/02/17 11:54 04/02/17 11:54 04/02/17 11:54 04/02/17 11:54 04/02/17 11:54 Intake & Output 04/01/17 04/02/17 04/03/17 06:59 06:59 06:59 Intake Total 2919 2177 237 Output Total 1650 1951 900 Balance 1269 226 -663 Weight 79 kg General appearance: PRESENT: no acute distress, cooperative, disheveled, obese, well-developed. ABSENT: hard of hearing, mild distress, morbidly obese, severe distress, thin Head exam: PRESENT: atraumatic, normocephalic Eye exam: PRESENT: conjunctiva pale, EOMI. ABSENT: conjunctival injection, conjunctiva pink, nystagmus, periorbital swelling, scleral icterus Mouth exam: PRESENT: dry mucosa, neck supple, tongue midline. ABSENT: laceration, moist Neck exam: ABSENT: carotid bruit, JVD, lymphadenopathy, thyromegaly, tracheal deviation, tracheostomy Respiratory exam: PRESENT: decreased breath sounds, prolonged expiratory phas, rhonchi, symmetrical, unlabored, wheezes. ABSENT: accessory muscle use, chest wall tenderness, clear to auscultation ghulam, crackles, rales, retraction, stridor , tachypnea Cardiovascular exam: PRESENT: RRR, +S1, +S2. ABSENT: irregular rhythm, rubs Pulses: PRESENT: normal radial pulses GI/Abdominal exam: PRESENT: normal bowel sounds, soft. ABSENT: distended, guarding, mass, organolmegaly, rebound, tenderness Extremities exam: ABSENT: clubbing, joint swelling Musculoskeletal exam: ABSENT: deformity, dislocation Neurological exam: PRESENT: alert, awake Psychiatric exam: PRESENT: normal mood Skin exam: PRESENT: dry, warm Results Laboratory Results: 03/30/17 06:08 04/01/17 05:11 Impressions: Chest CT 03/28/17 00:00 IMPRESSION: 1. Significant increase in size of pleural-based left lower lobe lung mass now measuring 6.2 cm. This is concerning malignancy. This lesion would be amenable to percutaneous biopsy. 2. Central lobular emphysematous changes. 3. Coronary artery atherosclerosis. This exam was performed according to our departmental dose-optimization program, which includes automated exposure control, adjustment of the mA and/or kV according to patient size and/or use of iterative reconstruction technique. Chest X-Ray 04/01/17 10:15 IMPRESSION: Left lung mass. No significant change. Assessment & Plan - Diagnosis (1) Acute hypercapnic respiratory failure Is this a current diagnosis for this admission?: Yes Plan: Clinically improving we will check ABG (2) Lung cancer Qualifiers: Lung location: unspecified part of lung Is this a current diagnosis for this admission?: Yes Plan: Hospice versus comfort care (3) MRSA pneumonia Qualifiers: Laterality: unspecified laterality Lung location: unspecified part of lung Qualified Code(s): J15.212 - Pneumonia due to Methicillin resistant Staphylococcus aureus Is this a current diagnosis for this admission?: Yes Plan: Airborne precautions appropriate cultures
[2017-04-02] MEDS: OXYCODONE HCL IR 5 MG TABLET PO PRN (13:33)
[2017-04-02] MEDS: OXYCODONE-ACETAMINOPHEN 5-325 MG TABLET PO PRN (13:33)
--- NOTE | 2017-04-02 13:58 | PDOC PROGRESS REPORT ---
Subjective Progress Note for:: 04/02/17 Subjective:: She was seen by the bedside, consultation will be requested from discharge planning to arrange for hospice care for this patient Reason For Visit: ACUTE HYPERCAPNIC RESPIRATORY FAILURE,COPD,HTN Physical Exam Vital Signs: Temp Pulse Resp BP Pulse Ox 98.0 F 84 20 113/56 L 100 04/02/17 11:54 04/02/17 11:54 04/02/17 11:54 04/02/17 11:54 04/02/17 11:54 Intake & Output 04/01/17 04/02/17 04/03/17 06:59 06:59 06:59 Intake Total 2919 2177 237 Output Total 1650 1951 900 Balance 1269 226 -663 Weight 79 kg General appearance: PRESENT: severe distress Respiratory exam: PRESENT: wheezes Cardiovascular exam: PRESENT: RRR, +S1, +S2 GI/Abdominal exam: PRESENT: normal bowel sounds, soft Rectal exam: PRESENT: deferred Neurological exam: PRESENT: alert Skin exam: PRESENT: dry, intact, warm. ABSENT: cyanosis, rash Results Laboratory Results: 03/30/17 06:08 04/01/17 05:11 Impressions: Chest CT 03/28/17 00:00 IMPRESSION: 1. Significant increase in size of pleural-based left lower lobe lung mass now measuring 6.2 cm. This is concerning malignancy. This lesion would be amenable to percutaneous biopsy. 2. Central lobular emphysematous changes. 3. Coronary artery atherosclerosis. This exam was performed according to our departmental dose-optimization program, which includes automated exposure control, adjustment of the mA and/or kV according to patient size and/or use of iterative reconstruction technique. Chest X-Ray 04/01/17 10:15 IMPRESSION: Left lung mass. No significant change. Assessment & Plan - Diagnosis (1) Acute hypercapnic respiratory failure Is this a current diagnosis for this admission?: Yes (2) Very severe chronic obstructive pulmonary disease Is this a current diagnosis for this admission?: Yes (3) HTN (hypertension) Qualifiers: Hypertension type: essential hypertension Qualified Code(s): I10 - Essential (primary) hypertension Is this a current diagnosis for this admission?: Yes (4) Malignant neoplasm of lower lobe, left bronchus or lung Is this a current diagnosis for this admission?: Yes
[2017-04-02 14:14] LABS: ARTERIAL BLOOD BASE EXCESS -0.4 mmol/L; ARTERIAL BLOOD H2CO3 1.26 mmol/L (1.05-1.35); ARTERIAL BLOOD HCO3 24.7 mmol/L (20-26); ARTERIAL BLOOD O2 SATURATION 97.1 % (94-98); ARTERIAL BLOOD PH 7.39 (7.35-7.45); ARTERIAL BLOOD PO2 93.9 mmHg (80-100)
[2017-04-02 14:15] LABS: ARTERIAL BLOOD FIO2 30%
[2017-04-02] MEDS: NORMAL SALINE 1000 ML 1,000 ML IV PRN (17:20)
[2017-04-02] MEDS: MIRTAZAPINE 15 MG TABLET PO SCH (21:13)
[2017-04-02] MEDS: ATORVASTATIN CALCIUM 10 MG TABLET PO SCH (21:13)
[2017-04-02] MEDS: CETIRIZINE 5 MG TABLET PO SCH (21:13)
[2017-04-03] MEDS: IPRATROPIUM/ALBUTEROL 0.5-2.5 MG/3 ML AMPUL NEB SCH ×7 (00:02→23:58)
[2017-04-03] MEDS: CEFTAZIDIME PENTAHYDRATE 1 GM in DEXTROSE 5%-WATER 50 ML IV SCH ×3 (02:28→18:37)
[2017-04-03] MEDS: BUSPIRONE HCL 10 MG TABLET PO SCH ×3 (05:08→21:09)
[2017-04-03] MEDS: LANSOPRAZOLE 30 MG TAB.RAP.DR PO SCH (05:08)
[2017-04-03] MEDS: PREGABALIN 75 MG CAPSULE PO SCH ×3 (05:08→21:10)
[2017-04-03] MEDS: TOBRAMYCIN SULFATE NEB 40 MG/ML 30 ML NEB SCH ×2 (08:05→20:30)
[2017-04-03] MEDS: LEVOFLOXACIN 750 MG TABLET PO SCH (09:47)
[2017-04-03] MEDS: METHOCARBAMOL 500 MG TABLET PO SCH ×2 (09:48→21:10)
[2017-04-03] MEDS: CLONIDINE HCL 0.1 MG TABLET PO SCH ×2 (09:48→21:14)
[2017-04-03] MEDS: CITALOPRAM HYDROBROMIDE 20 MG TABLET PO SCH (09:48)
[2017-04-03] MEDS: LOSARTAN POTASSIUM 50 MG TABLET PO SCH (09:49)
[2017-04-03] MEDS: PREDNISONE 5 MG TABLET PO SCH (09:49)
[2017-04-03] MEDS: AMLODIPINE BESYLATE 5 MG TABLET PO SCH (09:49)
[2017-04-03] MEDS: ENOXAPARIN SODIUM INJ 40 MG/0.4 ML DISP.SYRIN SUBCUT SCH (09:50)
[2017-04-03] MEDS: TIOTROPIUM BROMIDE DPI 5 CAP/KIT (18 MCG/CAP) IH SCH (09:50)
[2017-04-03] MEDS: BUDESONIDE/FORMOTEROL 160-4.5 MCG 60 PUFF/6 GM MDI IH SCH ×2 (09:50→21:09)
[2017-04-03] MEDS: FERROUS SULFATE 325 MG TABLET PO SCH (11:34)
[2017-04-03] MEDS: MULTIVITAMIN TABLET PO SCH (11:34)
[2017-04-03] MEDS: OXYCODONE-ACETAMINOPHEN 5-325 MG TABLET PO PRN ×2 (11:34→19:52)
[2017-04-03] MEDS: OXYCODONE HCL IR 5 MG TABLET PO PRN ×2 (11:35→19:51)
[2017-04-03] MEDS: NORMAL SALINE 1000 ML 1,000 ML IV PRN (18:40)
[2017-04-03] MEDS: CETIRIZINE 5 MG TABLET PO SCH (21:09)
[2017-04-03] MEDS: MIRTAZAPINE 15 MG TABLET PO SCH (21:10)
[2017-04-03] MEDS: ATORVASTATIN CALCIUM 10 MG TABLET PO SCH (21:14)
--- NOTE | 2017-04-03 21:53 | PDOC PROGRESS REPORT ---
Subjective Progress Note for:: 04/03/17 Subjective:: There is no new complaints Reason For Visit: ACUTE HYPERCAPNIC RESPIRATORY FAILURE,COPD,HTN Physical Exam Vital Signs: Temp Pulse Resp BP Pulse Ox 97.5 F 79 18 114/57 L 99 04/03/17 20:05 04/03/17 20:05 04/03/17 20:05 04/03/17 20:05 04/03/17 20:05 Intake & Output 04/02/17 04/03/17 04/04/17 06:59 06:59 06:59 Intake Total 2177 2067 932 Output Total 1951 8650 1907 Balance 222 -123 -700 Weight 79 kg General appearance: PRESENT: no acute distress Eye exam: PRESENT: PERRLA Respiratory exam: PRESENT: clear to auscultation ghulam Cardiovascular exam: PRESENT: +S1, +S2 GI/Abdominal exam: PRESENT: soft Neurological exam: PRESENT: alert Results Laboratory Results: 03/30/17 06:08 04/01/17 05:11 Impressions: Chest CT 03/28/17 00:00 IMPRESSION: 1. Significant increase in size of pleural-based left lower lobe lung mass now measuring 6.2 cm. This is concerning malignancy. This lesion would be amenable to percutaneous biopsy. 2. Central lobular emphysematous changes. 3. Coronary artery atherosclerosis. This exam was performed according to our departmental dose-optimization program, which includes automated exposure control, adjustment of the mA and/or kV according to patient size and/or use of iterative reconstruction technique. Chest X-Ray 04/01/17 10:15 IMPRESSION: Left lung mass. No significant change. Assessment & Plan - Diagnosis (1) Acute hypercapnic respiratory failure Is this a current diagnosis for this admission?: Yes (2) Very severe chronic obstructive pulmonary disease Is this a current diagnosis for this admission?: Yes (3) HTN (hypertension) Qualifiers: Hypertension type: essential hypertension Qualified Code(s): I10 - Essential (primary) hypertension Is this a current diagnosis for this admission?: Yes (4) Malignant neoplasm of lower lobe, left bronchus or lung Is this a current diagnosis for this admission?: Yes
[2017-04-04] MEDS: CEFTAZIDIME PENTAHYDRATE 1 GM in DEXTROSE 5%-WATER 50 ML IV SCH ×2 (02:41→09:48)
[2017-04-04] MEDS: IPRATROPIUM/ALBUTEROL 0.5-2.5 MG/3 ML AMPUL NEB SCH ×5 (04:18→21:20)
[2017-04-04] MEDS: LANSOPRAZOLE 30 MG TAB.RAP.DR PO SCH (06:48)
[2017-04-04] MEDS: BUSPIRONE HCL 10 MG TABLET PO SCH ×3 (06:49→21:51)
[2017-04-04] MEDS: PREGABALIN 75 MG CAPSULE PO SCH ×3 (06:49→21:51)
[2017-04-04] MEDS: OXYCODONE HCL IR 5 MG TABLET PO PRN ×3 (06:52→19:49)
[2017-04-04] MEDS: OXYCODONE-ACETAMINOPHEN 5-325 MG TABLET PO PRN ×3 (06:53→19:49)
[2017-04-04] MEDS: TOBRAMYCIN SULFATE NEB 40 MG/ML 30 ML NEB SCH ×2 (08:45→21:20)
[2017-04-04] MEDS: ENOXAPARIN SODIUM INJ 40 MG/0.4 ML DISP.SYRIN SUBCUT SCH (09:45)
[2017-04-04] MEDS: CITALOPRAM HYDROBROMIDE 20 MG TABLET PO SCH (09:47)
[2017-04-04] MEDS: LEVOFLOXACIN 750 MG TABLET PO SCH (09:47)
[2017-04-04] MEDS: AMLODIPINE BESYLATE 5 MG TABLET PO SCH (09:47)
[2017-04-04] MEDS: METHOCARBAMOL 500 MG TABLET PO SCH ×2 (09:47→21:51)
[2017-04-04] MEDS: CLONIDINE HCL 0.1 MG TABLET PO SCH ×2 (09:48→21:52)
[2017-04-04] MEDS: LOSARTAN POTASSIUM 50 MG TABLET PO SCH (09:48)
[2017-04-04] MEDS: PREDNISONE 5 MG TABLET PO SCH (09:48)
[2017-04-04] MEDS: TIOTROPIUM BROMIDE DPI 5 CAP/KIT (18 MCG/CAP) IH SCH (09:49)
[2017-04-04] MEDS: BUDESONIDE/FORMOTEROL 160-4.5 MCG 60 PUFF/6 GM MDI IH SCH ×2 (09:49→21:55)
[2017-04-04] MEDS: MULTIVITAMIN TABLET PO SCH (13:19)
[2017-04-04] MEDS: FERROUS SULFATE 325 MG TABLET PO SCH (13:20)
--- NOTE | 2017-04-04 15:24 | PDOC PROGRESS REPORT ---
Subjective Progress Note for:: 04/04/17 Subjective:: Awaiting Dr. Merino Reason For Visit: ACUTE HYPERCAPNIC RESPIRATORY FAILURE,COPD,HTN Physical Exam Vital Signs: Temp Pulse Resp BP Pulse Ox 98.8 F 86 24 H 108/57 L 98 04/04/17 12:12 04/04/17 14:00 04/04/17 12:12 04/04/17 12:12 04/04/17 12:12 Intake & Output 04/03/17 04/04/17 04/05/17 06:59 06:59 06:59 Intake Total 2067 1819 459 Output Total 2850 2950 800 Balance -783 -1131 -341 General appearance: PRESENT: no acute distress, cooperative, disheveled, well- developed, well-nourished. ABSENT: hard of hearing, mild distress, morbidly obese, obese, severe distress Head exam: PRESENT: atraumatic, normocephalic Eye exam: PRESENT: conjunctiva pale, EOMI. ABSENT: conjunctival injection, conjunctiva pink, nystagmus, periorbital swelling, scleral icterus Mouth exam: PRESENT: moist, neck supple, tongue midline. ABSENT: dry mucosa, laceration Neck exam: ABSENT: carotid bruit, JVD, lymphadenopathy, thyromegaly, tracheal deviation, tracheostomy Respiratory exam: PRESENT: decreased breath sounds - L>R, prolonged expiratory phas, rales, rhonchi, unlabored. ABSENT: accessory muscle use, chest wall tenderness, clear to auscultation ghulam, crackles, retraction, stridor, tachypnea , wheezes Cardiovascular exam: PRESENT: RRR, +S1, +S2. ABSENT: rubs Pulses: PRESENT: normal radial pulses GI/Abdominal exam: PRESENT: normal bowel sounds, soft. ABSENT: distended, guarding, mass, organolmegaly, rebound, tenderness Extremities exam: ABSENT: clubbing, joint swelling Musculoskeletal exam: ABSENT: deformity, dislocation Neurological exam: PRESENT: alert, awake Psychiatric exam: PRESENT: normal mood Skin exam: PRESENT: dry, warm Results Laboratory Results: 03/30/17 06:08 04/01/17 05:11 Impressions: Chest CT 03/28/17 00:00 IMPRESSION: 1. Significant increase in size of pleural-based left lower lobe lung mass now measuring 6.2 cm. This is concerning malignancy. This lesion would be amenable to percutaneous biopsy. 2. Central lobular emphysematous changes. 3. Coronary artery atherosclerosis. This exam was performed according to our departmental dose-optimization program, which includes automated exposure control, adjustment of the mA and/or kV according to patient size and/or use of iterative reconstruction technique. Chest X-Ray 04/01/17 10:15 IMPRESSION: Left lung mass. No significant change. Assessment & Plan - Diagnosis (1) Acute hypercapnic respiratory failure Is this a current diagnosis for this admission?: Yes Plan: Clinically improving (2) Lung cancer Qualifiers: Lung location: unspecified part of lung Is this a current diagnosis for this admission?: Yes Plan: Hospice versus comfort care (3) MRSA pneumonia Qualifiers: Laterality: unspecified laterality Lung location: unspecified part of lung Qualified Code(s): J15.212 - Pneumonia due to Methicillin resistant Staphylococcus aureus Is this a current diagnosis for this admission?: Yes Plan: discussed w/pharmacy d/c levoquin and ceftazidine started SeptraDS and cefipine
[2017-04-04] MEDS: SULFAMETHOXAZOLE/TRIMETHOPRIM 800-160 MG TABLET PO SCH (17:36)
[2017-04-04] MEDS: CEFEPIME 2 GM/D5W RTU 2 GM/50 ML RTUPB IV SCH (17:36)
--- NOTE | 2017-04-04 20:49 | PDOC PROGRESS REPORT ---
Subjective Progress Note for:: 04/04/17 Subjective:: I had a long discussion with the patient about the plan of care I recommended that patient to probably be hospice care at this stage of disease. I was in the room with patient's children, the family is hoping for hospice but patient is not completely made up her mind yet regarding the plan of care she would prefer to be treated ,it seems ,she seems to be suggesting that she may want intervention including chemotherapy and or radiation therapy. She has to be rebiopsied ,restage before treatment can be planned Reason For Visit: ACUTE HYPERCAPNIC RESPIRATORY FAILURE,COPD,HTN Physical Exam Vital Signs: Temp Pulse Resp BP Pulse Ox 98.7 F 84 22 H 105/55 L 97 04/04/17 15:35 04/04/17 16:24 04/04/17 16:24 04/04/17 15:35 04/04/17 16:24 Intake & Output 04/03/17 04/04/17 04/05/17 06:59 06:59 06:59 Intake Total 2067 1819 2081 Output Total 2850 2950 1200 Balance -783 -1131 881 General appearance: PRESENT: mild distress Head exam: PRESENT: atraumatic, normocephalic Eye exam: PRESENT: PERRLA Ear exam: PRESENT: normal external ear exam Mouth exam: PRESENT: moist, tongue midline Neck exam: PRESENT: full ROM Respiratory exam: PRESENT: wheezes Cardiovascular exam: PRESENT: +S1, +S2 Vascular exam: PRESENT: normal capillary refill GI/Abdominal exam: PRESENT: normal bowel sounds, soft Rectal exam: PRESENT: deferred Neurological exam: PRESENT: alert Psychiatric exam: PRESENT: appropriate affect, normal mood Skin exam: PRESENT: dry, intact, warm Results Laboratory Results: 03/30/17 06:08 04/01/17 05:11 Impressions: Chest CT 03/28/17 00:00 IMPRESSION: 1. Significant increase in size of pleural-based left lower lobe lung mass now measuring 6.2 cm. This is concerning malignancy. This lesion would be amenable to percutaneous biopsy. 2. Central lobular emphysematous changes. 3. Coronary artery atherosclerosis. This exam was performed according to our departmental dose-optimization program, which includes automated exposure control, adjustment of the mA and/or kV according to patient size and/or use of iterative reconstruction technique. Chest X-Ray 04/01/17 10:15 IMPRESSION: Left lung mass. No significant change. Assessment & Plan - Diagnosis (1) Acute hypercapnic respiratory failure Is this a current diagnosis for this admission?: Yes (2) Very severe chronic obstructive pulmonary disease Is this a current diagnosis for this admission?: Yes (3) HTN (hypertension) Qualifiers: Hypertension type: essential hypertension Qualified Code(s): I10 - Essential (primary) hypertension Is this a current diagnosis for this admission?: Yes (4) Malignant neoplasm of lower lobe, left bronchus or lung Is this a current diagnosis for this admission?: Yes
[2017-04-04] MEDS: ATORVASTATIN CALCIUM 10 MG TABLET PO SCH (21:52)
[2017-04-04] MEDS: CETIRIZINE 5 MG TABLET PO SCH (21:56)
[2017-04-04] MEDS: MIRTAZAPINE 15 MG TABLET PO SCH (21:59)
[2017-04-05] MEDS: IPRATROPIUM/ALBUTEROL 0.5-2.5 MG/3 ML AMPUL NEB SCH ×7 (00:42→23:33)
[2017-04-05] MEDS: CEFEPIME 2 GM/D5W RTU 2 GM/50 ML RTUPB IV SCH ×2 (06:48→18:25)
[2017-04-05] MEDS: BUSPIRONE HCL 10 MG TABLET PO SCH ×3 (06:51→21:43)
[2017-04-05] MEDS: LANSOPRAZOLE 30 MG TAB.RAP.DR PO SCH (06:51)
[2017-04-05] MEDS: PREGABALIN 75 MG CAPSULE PO SCH ×3 (06:51→21:43)
[2017-04-05] MEDS: OXYCODONE-ACETAMINOPHEN 5-325 MG TABLET PO PRN ×2 (08:11→18:25)
[2017-04-05] MEDS: OXYCODONE HCL IR 5 MG TABLET PO PRN ×2 (08:11→18:26)
[2017-04-05] MEDS: TOBRAMYCIN SULFATE NEB 40 MG/ML 30 ML NEB SCH ×2 (08:39→20:25)
[2017-04-05] MEDS: SULFAMETHOXAZOLE/TRIMETHOPRIM 800-160 MG TABLET PO SCH ×2 (09:56→18:26)
[2017-04-05] MEDS: METHOCARBAMOL 500 MG TABLET PO SCH ×2 (09:56→21:43)
[2017-04-05] MEDS: CITALOPRAM HYDROBROMIDE 20 MG TABLET PO SCH (09:56)
[2017-04-05] MEDS: CLONIDINE HCL 0.1 MG TABLET PO SCH ×2 (09:57→22:34)
[2017-04-05] MEDS: LOSARTAN POTASSIUM 50 MG TABLET PO SCH (09:57)
[2017-04-05] MEDS: PREDNISONE 5 MG TABLET PO SCH (09:57)
[2017-04-05] MEDS: AMLODIPINE BESYLATE 5 MG TABLET PO SCH (09:57)
[2017-04-05] MEDS: TIOTROPIUM BROMIDE DPI 5 CAP/KIT (18 MCG/CAP) IH SCH (09:58)
[2017-04-05] MEDS: BUDESONIDE/FORMOTEROL 160-4.5 MCG 60 PUFF/6 GM MDI IH SCH ×2 (09:58→21:43)
[2017-04-05] MEDS: ENOXAPARIN SODIUM INJ 40 MG/0.4 ML DISP.SYRIN SUBCUT SCH (09:58)
--- NOTE | 2017-04-05 10:16 | PDOC PROGRESS REPORT ---
Subjective Progress Note for:: 04/03/17 Subjective:: awake w/o complaints Reason For Visit: ACUTE HYPERCAPNIC RESPIRATORY FAILURE,COPD,HTN Physical Exam Vital Signs: Temp Pulse Resp BP Pulse Ox 98.8 F 86 24 H 108/57 L 98 04/04/17 12:12 04/04/17 14:00 04/04/17 12:12 04/04/17 12:12 04/04/17 12:12 Intake & Output 04/03/17 04/04/17 04/05/17 06:59 06:59 06:59 Intake Total 2067 1819 459 Output Total 2850 2950 800 Balance -783 -1131 -341 General appearance: PRESENT: no acute distress, cooperative, disheveled, well- developed. ABSENT: mild distress, morbidly obese, obese, severe distress Head exam: PRESENT: atraumatic, normocephalic Eye exam: PRESENT: conjunctiva pale, EOMI. ABSENT: conjunctival injection, conjunctiva pink, nystagmus, periorbital swelling, scleral icterus Mouth exam: PRESENT: dry mucosa, neck supple, tongue midline. ABSENT: laceration, moist Neck exam: ABSENT: carotid bruit, JVD, lymphadenopathy, thyromegaly, tracheal deviation, tracheostomy Respiratory exam: PRESENT: decreased breath sounds, prolonged expiratory phas, rales, rhonchi, symmetrical, unlabored, wheezes. ABSENT: accessory muscle use, chest wall tenderness, clear to auscultation ghulam, crackles, retraction, stridor , tachypnea Cardiovascular exam: PRESENT: RRR, +S1, +S2. ABSENT: irregular rhythm, rubs Pulses: ABSENT: normal radial pulses GI/Abdominal exam: PRESENT: normal bowel sounds, soft. ABSENT: distended, guarding, mass, organolmegaly, rebound, tenderness Extremities exam: ABSENT: clubbing, joint swelling Musculoskeletal exam: ABSENT: deformity, dislocation Neurological exam: PRESENT: awake Skin exam: PRESENT: dry, warm Results Laboratory Results: 03/30/17 06:08 04/01/17 05:11 Impressions: Chest CT 03/28/17 00:00 IMPRESSION: 1. Significant increase in size of pleural-based left lower lobe lung mass now measuring 6.2 cm. This is concerning malignancy. This lesion would be amenable to percutaneous biopsy. 2. Central lobular emphysematous changes. 3. Coronary artery atherosclerosis. This exam was performed according to our departmental dose-optimization program, which includes automated exposure control, adjustment of the mA and/or kV according to patient size and/or use of iterative reconstruction technique. Chest X-Ray 04/01/17 10:15 IMPRESSION: Left lung mass. No significant change. Assessment & Plan - Diagnosis (1) Acute hypercapnic respiratory failure Is this a current diagnosis for this admission?: Yes Plan: unchanged last 24hrs (2) Lung cancer Qualifiers: Lung location: unspecified part of lung Is this a current diagnosis for this admission?: Yes Plan: Hospice versus comfort care (3) MRSA pneumonia Qualifiers: Laterality: unspecified laterality Lung location: unspecified part of lung Qualified Code(s): J15.212 - Pneumonia due to Methicillin resistant Staphylococcus aureus Is this a current diagnosis for this admission?: Yes Plan: discussed w/pharmacy d/c levoquin and ceftazidine started SeptraDS and cefipine
[2017-04-05] MEDS: MULTIVITAMIN TABLET PO SCH (12:16)
[2017-04-05] MEDS: FERROUS SULFATE 325 MG TABLET PO SCH (12:16)
[2017-04-05] MEDS: NORMAL SALINE 1000 ML 1,000 ML IV PRN (15:11)
--- NOTE | 2017-04-05 16:22 | PDOC PROGRESS REPORT ---
Subjective Progress Note for:: 04/05/17 Subjective:: Patient insisted on getting a CT-guided needle biopsy of the mass that was recommended by the oncologist, she will be scheduled for the procedure and also for metastatic workup Reason For Visit: ACUTE HYPERCAPNIC RESPIRATORY FAILURE,COPD,HTN Physical Exam Vital Signs: Temp Pulse Resp BP Pulse Ox 98.2 F 80 16 95/41 L 95 04/05/17 12:03 04/05/17 15:38 04/05/17 15:38 04/05/17 12:03 04/05/17 15:38 Intake & Output 04/04/17 04/05/17 04/06/17 06:59 06:59 06:59 Intake Total 1819 2921 240 Output Total 2950 1420 400 Balance -1131 1501 -160 General appearance: PRESENT: mild distress Eye exam: PRESENT: PERRLA Respiratory exam: PRESENT: wheezes Cardiovascular exam: PRESENT: +S1, +S2 GI/Abdominal exam: PRESENT: soft Results Laboratory Results: 03/30/17 06:08 04/01/17 05:11 Impressions: Chest CT 03/28/17 00:00 IMPRESSION: 1. Significant increase in size of pleural-based left lower lobe lung mass now measuring 6.2 cm. This is concerning malignancy. This lesion would be amenable to percutaneous biopsy. 2. Central lobular emphysematous changes. 3. Coronary artery atherosclerosis. This exam was performed according to our departmental dose-optimization program, which includes automated exposure control, adjustment of the mA and/or kV according to patient size and/or use of iterative reconstruction technique. Chest X-Ray 04/01/17 10:15 IMPRESSION: Left lung mass. No significant change. Assessment & Plan - Diagnosis (1) Acute hypercapnic respiratory failure Is this a current diagnosis for this admission?: Yes (2) Very severe chronic obstructive pulmonary disease Is this a current diagnosis for this admission?: Yes (3) HTN (hypertension) Qualifiers: Hypertension type: essential hypertension Qualified Code(s): I10 - Essential (primary) hypertension Is this a current diagnosis for this admission?: Yes (4) Malignant neoplasm of lower lobe, left bronchus or lung Is this a current diagnosis for this admission?: Yes Plan: She will be scheduled for CT-guided needle biopsy of the lung mass and also for metastatic workup
--- NOTE | 2017-04-05 17:49 | RADIOLOGY REPORT (SQ) ---
EXAM DESCRIPTION: CT ABD/PELVIS WITH IV ONLY COMPLETED DATE/TIME: 04/05/2017 5:35 pm REASON FOR STUDY: metastatic work up COMPARISON: None. TECHNIQUE: CT scan of the abdomen and pelvis performed using helical scanning technique with dynamic intravenous contrast injection. No oral contrast. Images reviewed with lung, soft tissue, and bone windows. Reconstructed coronal and sagittal MPR images reviewed. Delayed images for evaluation of the urinary system also acquired. All images stored on PACS. All CT scanners at this facility use dose modulation, iterative reconstruction, and/or weight based d osing when appropriate to reduce radiation dose to as low as reasonably achievable (ALARA). [facility]: Dose Right [facility]: CareDose [facility]: Dose Right [facility]: Teradose 4D [facility]: [employer] CONTRAST TYPE AND DOSE: contrast/concentration: Isovue 370.00 mg/ml; Total Contrast Delivered: 74.0 ml; Total Saline Delivered: 66.0 ml RENAL FUNCTION: BUN 19 creatinine 0.8 RADIATION DOSE: CT Rad equipment meets quality standard of care and radiation dose reduction techniq ues were employed. CTDIvol: 11.4 - 15.8 mGy. DLP: 1419 mGy-cm.. LIMITATIONS: None. FINDINGS: LOWER CHEST: Pleural-based mass left lung described on recent chest CT. Trace pleural eff usions. LIVER: Normal size. No masses. No dilated ducts. SPLEEN: Old granulomatous disease. PANCREAS: No masses. No significant calcifications. No adjacent inflammation or peripancreatic fluid collections. Pancreatic duct not dilated. GALLBLADDER: Surgically absent. ADRENAL GLANDS: No significant masses or asymmetry. RIGHT KIDNEY AND URETER: No solid masses. No significant calcifications. No hydronephrosis or hyd roureter. LEFT KIDNEY AND URETER: No solid masses. No significant calcifications. No hydronephrosis or hydr oureter. AORTA AND VESSELS: No aneurysm. RETROPERITONEUM: No retroperitoneal adenopathy, hemorrhage or masses. BOWEL AND PERITONEAL CAVITY: Status post right hemicolectomy. No obstruction. No ascites or free ai r. APPENDIX: Surgically absent. PELVIS: Soliman catheter in urinary bladder. ABDOMINAL WALL: No masses. No hernias. BONES: Osteoporotic compression fractures status post kyphoplasty lumbar spine. OTHER: No other significant finding. IMPRESSION: No evidence of metastatic disease. TECHNICAL DOCUMENTATION: JOB ID: [id number] Quality ID # [id number]: Final reports with documentation of one or more dose reduction techniques (e.g., Au tomated exposure control, adjustment of the mA and/or kV according to patient size, use of iterative reconstruction technique) 2010 [employer]- All Rights Reserved
[2017-04-05] MEDS: ATORVASTATIN CALCIUM 10 MG TABLET PO SCH (21:43)
[2017-04-05] MEDS: MIRTAZAPINE 15 MG TABLET PO SCH (21:43)
[2017-04-05] MEDS: CETIRIZINE 5 MG TABLET PO SCH (21:45)
[2017-04-06] MEDS: IPRATROPIUM/ALBUTEROL 0.5-2.5 MG/3 ML AMPUL NEB SCH ×6 (04:17→23:28)
[2017-04-06] MEDS: OXYCODONE-ACETAMINOPHEN 5-325 MG TABLET PO PRN (04:48)
[2017-04-06] MEDS: NORMAL SALINE 1000 ML 1,000 ML IV PRN (04:49)
[2017-04-06] MEDS: OXYCODONE HCL IR 5 MG TABLET PO PRN (04:49)
[2017-04-06] MEDS: LANSOPRAZOLE 30 MG TAB.RAP.DR PO SCH (05:03)
[2017-04-06] MEDS: PREGABALIN 75 MG CAPSULE PO SCH ×3 (05:03→21:53)
[2017-04-06] MEDS: CEFEPIME 2 GM/D5W RTU 2 GM/50 ML RTUPB IV SCH ×2 (05:03→17:34)
[2017-04-06] MEDS: BUSPIRONE HCL 10 MG TABLET PO SCH ×3 (05:03→21:54)
[2017-04-06] MEDS: TOBRAMYCIN SULFATE NEB 40 MG/ML 30 ML NEB SCH ×2 (08:27→19:58)
[2017-04-06] MEDS: PREDNISONE 5 MG TABLET PO SCH (09:59)
[2017-04-06] MEDS: CLONIDINE HCL 0.1 MG TABLET PO SCH ×2 (09:59→21:53)
[2017-04-06] MEDS: METHOCARBAMOL 500 MG TABLET PO SCH ×2 (09:59→21:53)
[2017-04-06] MEDS: CITALOPRAM HYDROBROMIDE 20 MG TABLET PO SCH (09:59)
[2017-04-06] MEDS: SULFAMETHOXAZOLE/TRIMETHOPRIM 800-160 MG TABLET PO SCH ×2 (09:59→17:34)
[2017-04-06] MEDS: LOSARTAN POTASSIUM 50 MG TABLET PO SCH (09:59)
[2017-04-06] MEDS: AMLODIPINE BESYLATE 5 MG TABLET PO SCH (10:00)
[2017-04-06] MEDS: TIOTROPIUM BROMIDE DPI 5 CAP/KIT (18 MCG/CAP) IH SCH (10:00)
[2017-04-06] MEDS: BUDESONIDE/FORMOTEROL 160-4.5 MCG 60 PUFF/6 GM MDI IH SCH ×2 (10:00→21:54)
[2017-04-06] MEDS: FERROUS SULFATE 325 MG TABLET PO SCH (13:52)
[2017-04-06] MEDS: MULTIVITAMIN TABLET PO SCH (13:52)
--- NOTE | 2017-04-06 15:05 | PDOC PROGRESS REPORT ---
Subjective Progress Note for:: 04/06/17 Subjective:: Patient is seen by the bedside, the CT scan of the abdomen and pelvis was negative for any acute pathology Reason For Visit: ACUTE HYPERCAPNIC RESPIRATORY FAILURE,COPD,HTN Physical Exam Vital Signs: Temp Pulse Resp BP Pulse Ox 97.4 F 95 16 93/53 L 94 04/06/17 11:03 04/06/17 14:00 04/06/17 11:50 04/06/17 11:03 04/06/17 11:50 Intake & Output 04/05/17 04/06/17 04/07/17 06:59 06:59 06:59 Intake Total 2921 2338 100 Output Total 1420 2400 650 Balance 1501 -62 -550 Weight 79.1 kg General appearance: PRESENT: severe distress Head exam: PRESENT: atraumatic Eye exam: PRESENT: conjunctiva pink, EOMI, PERRLA Mouth exam: PRESENT: moist, tongue midline Neck exam: PRESENT: full ROM Respiratory exam: PRESENT: decreased breath sounds Cardiovascular exam: PRESENT: RRR, +S1, +S2 Vascular exam: PRESENT: normal capillary refill GI/Abdominal exam: PRESENT: normal bowel sounds, soft Rectal exam: PRESENT: deferred Neurological exam: PRESENT: alert Skin exam: PRESENT: dry, intact, warm. ABSENT: cyanosis, rash Results Laboratory Results: 03/30/17 06:08 04/01/17 05:11 Impressions: Chest CT 03/28/17 00:00 IMPRESSION: 1. Significant increase in size of pleural-based left lower lobe lung mass now measuring 6.2 cm. This is concerning malignancy. This lesion would be amenable to percutaneous biopsy. 2. Central lobular emphysematous changes. 3. Coronary artery atherosclerosis. This exam was performed according to our departmental dose-optimization program, which includes automated exposure control, adjustment of the mA and/or kV according to patient size and/or use of iterative reconstruction technique. Chest X-Ray 04/01/17 10:15 IMPRESSION: Left lung mass. No significant change. Abdomen/Pelvis CT 04/05/17 00:00 IMPRESSION: No evidence of metastatic disease. Assessment & Plan - Diagnosis (1) Acute hypercapnic respiratory failure Is this a current diagnosis for this admission?: Yes (2) Very severe chronic obstructive pulmonary disease Is this a current diagnosis for this admission?: Yes (3) HTN (hypertension) Qualifiers: Hypertension type: essential hypertension Qualified Code(s): I10 - Essential (primary) hypertension Is this a current diagnosis for this admission?: Yes (4) Malignant neoplasm of lower lobe, left bronchus or lung Is this a current diagnosis for this admission?: Yes
[2017-04-06] MEDS: CETIRIZINE 5 MG TABLET PO SCH (21:53)
[2017-04-06] MEDS: MIRTAZAPINE 15 MG TABLET PO SCH (21:54)
[2017-04-06] MEDS: ATORVASTATIN CALCIUM 10 MG TABLET PO SCH (21:54)
[2017-04-07] MEDS: NORMAL SALINE 1000 ML 1,000 ML IV PRN ×3 (00:50→21:55)
[2017-04-07] MEDS: IPRATROPIUM/ALBUTEROL 0.5-2.5 MG/3 ML AMPUL NEB SCH ×6 (04:06→23:14)
[2017-04-07] MEDS: OXYCODONE-ACETAMINOPHEN 5-325 MG TABLET PO PRN ×3 (04:36→20:24)
[2017-04-07] MEDS: OXYCODONE HCL IR 5 MG TABLET PO PRN ×2 (04:36→20:24)
[2017-04-07] MEDS: BUSPIRONE HCL 10 MG TABLET PO SCH ×3 (06:02→22:07)
[2017-04-07] MEDS: PREGABALIN 75 MG CAPSULE PO SCH ×3 (06:02→22:05)
[2017-04-07] MEDS: LANSOPRAZOLE 30 MG TAB.RAP.DR PO SCH (06:02)
[2017-04-07] MEDS: CEFEPIME 2 GM/D5W RTU 2 GM/50 ML RTUPB IV SCH ×2 (06:02→17:33)
[2017-04-07] MEDS: TOBRAMYCIN SULFATE NEB 40 MG/ML 30 ML NEB SCH ×2 (07:44→19:29)
[2017-04-07] MEDS: CITALOPRAM HYDROBROMIDE 20 MG TABLET PO SCH (09:34)
[2017-04-07] MEDS: CLONIDINE HCL 0.1 MG TABLET PO SCH ×2 (09:34→22:06)
[2017-04-07] MEDS: METHOCARBAMOL 500 MG TABLET PO SCH ×2 (09:34→22:05)
[2017-04-07] MEDS: AMLODIPINE BESYLATE 5 MG TABLET PO SCH (09:34)
[2017-04-07] MEDS: BUDESONIDE/FORMOTEROL 160-4.5 MCG 60 PUFF/6 GM MDI IH SCH ×2 (09:35→22:08)
[2017-04-07] MEDS: LOSARTAN POTASSIUM 50 MG TABLET PO SCH (09:35)
[2017-04-07] MEDS: PREDNISONE 5 MG TABLET PO SCH (09:35)
[2017-04-07] MEDS: SULFAMETHOXAZOLE/TRIMETHOPRIM 800-160 MG TABLET PO SCH ×2 (09:35→17:31)
[2017-04-07] MEDS: TIOTROPIUM BROMIDE DPI 5 CAP/KIT (18 MCG/CAP) IH SCH (10:47)
[2017-04-07] MEDS: MULTIVITAMIN TABLET PO SCH (12:02)
[2017-04-07] MEDS: FERROUS SULFATE 325 MG TABLET PO SCH (12:02)
--- NOTE | 2017-04-07 12:39 | PDOC PROGRESS REPORT ---
Subjective Progress Note for:: 04/07/17 Subjective:: There is no new complaint today, she continues to require noninvasive positive pressure ventilation with BiPAP Reason For Visit: ACUTE HYPERCAPNIC RESPIRATORY FAILURE,COPD,HTN Physical Exam Vital Signs: Temp Pulse Resp BP Pulse Ox 97.9 F 80 16 114/57 L 98 04/07/17 07:14 04/07/17 11:50 04/07/17 11:50 04/07/17 07:14 04/07/17 11:50 Intake & Output 04/06/17 04/07/17 04/08/17 06:59 06:59 06:59 Intake Total 2338 2141 Output Total 2400 2425 Balance -62 -284 Weight 79.1 kg 76.5 kg General appearance: PRESENT: mild distress Eye exam: PRESENT: PERRLA Respiratory exam: PRESENT: decreased breath sounds Cardiovascular exam: PRESENT: +S1, +S2 GI/Abdominal exam: PRESENT: soft Neurological exam: PRESENT: alert Results Laboratory Results: 03/30/17 06:08 04/01/17 05:11 Impressions: Chest CT 03/28/17 00:00 IMPRESSION: 1. Significant increase in size of pleural-based left lower lobe lung mass now measuring 6.2 cm. This is concerning malignancy. This lesion would be amenable to percutaneous biopsy. 2. Central lobular emphysematous changes. 3. Coronary artery atherosclerosis. This exam was performed according to our departmental dose-optimization program, which includes automated exposure control, adjustment of the mA and/or kV according to patient size and/or use of iterative reconstruction technique. Chest X-Ray 04/01/17 10:15 IMPRESSION: Left lung mass. No significant change. Abdomen/Pelvis CT 04/05/17 00:00 IMPRESSION: No evidence of metastatic disease. Assessment & Plan - Diagnosis (1) Acute hypercapnic respiratory failure Is this a current diagnosis for this admission?: Yes (2) Very severe chronic obstructive pulmonary disease Is this a current diagnosis for this admission?: Yes (3) HTN (hypertension) Qualifiers: Hypertension type: essential hypertension Qualified Code(s): I10 - Essential (primary) hypertension Is this a current diagnosis for this admission?: Yes (4) Malignant neoplasm of lower lobe, left bronchus or lung Is this a current diagnosis for this admission?: Yes
[2017-04-07] MEDS: CETIRIZINE 5 MG TABLET PO SCH (22:05)
[2017-04-07] MEDS: MIRTAZAPINE 15 MG TABLET PO SCH (22:06)
[2017-04-07] MEDS: ATORVASTATIN CALCIUM 10 MG TABLET PO SCH (22:07)
[2017-04-08] MEDS: IPRATROPIUM/ALBUTEROL 0.5-2.5 MG/3 ML AMPUL NEB SCH ×5 (03:53→20:27)
[2017-04-08] MEDS: LANSOPRAZOLE 30 MG TAB.RAP.DR PO SCH (05:15)
[2017-04-08] MEDS: BUSPIRONE HCL 10 MG TABLET PO SCH ×3 (05:15→21:40)
[2017-04-08] MEDS: CEFEPIME 2 GM/D5W RTU 2 GM/50 ML RTUPB IV SCH ×2 (05:15→17:11)
[2017-04-08] MEDS: PREGABALIN 75 MG CAPSULE PO SCH ×3 (05:15→21:41)
[2017-04-08] MEDS: LEVALBUTEROL HCL NEB 0.63 MG/3 ML AMPUL NEB PRN (05:49)
[2017-04-08] MEDS: TOBRAMYCIN SULFATE NEB 40 MG/ML 30 ML NEB SCH (07:46)
[2017-04-08] MEDS: NORMAL SALINE 1000 ML 1,000 ML IV PRN ×2 (08:11→23:25)
[2017-04-08] MEDS: OXYCODONE-ACETAMINOPHEN 5-325 MG TABLET PO PRN (10:43)
[2017-04-08] MEDS: OXYCODONE HCL IR 5 MG TABLET PO PRN (10:44)
[2017-04-08] MEDS: CITALOPRAM HYDROBROMIDE 20 MG TABLET PO SCH (12:21)
[2017-04-08] MEDS: LOSARTAN POTASSIUM 50 MG TABLET PO SCH (12:21)
[2017-04-08] MEDS: AMLODIPINE BESYLATE 5 MG TABLET PO SCH (12:21)
[2017-04-08] MEDS: METHOCARBAMOL 500 MG TABLET PO SCH ×2 (12:22→21:42)
[2017-04-08] MEDS: PREDNISONE 5 MG TABLET PO SCH (12:22)
[2017-04-08] MEDS: CLONIDINE HCL 0.1 MG TABLET PO SCH ×2 (12:22→21:42)
[2017-04-08] MEDS: BUDESONIDE/FORMOTEROL 160-4.5 MCG 60 PUFF/6 GM MDI IH SCH ×2 (12:23→21:47)
[2017-04-08] MEDS: SULFAMETHOXAZOLE/TRIMETHOPRIM 800-160 MG TABLET PO SCH ×2 (12:23→17:10)
[2017-04-08] MEDS: MULTIVITAMIN TABLET PO SCH (12:23)
[2017-04-08] MEDS: FERROUS SULFATE 325 MG TABLET PO SCH (12:23)
[2017-04-08] MEDS: TIOTROPIUM BROMIDE DPI 5 CAP/KIT (18 MCG/CAP) IH SCH (12:24)
--- NOTE | 2017-04-08 12:40 | RADIOLOGY REPORT (SQ) ---
EXAM DESCRIPTION: NM WHOLE BODY BONE SCAN COMPLETED DATE/TIME: 04/08/2017 12:22 pm REASON FOR STUDY: Malignant Neoplasm of Lung COMPARISON: CT abdomen and pelvis dated 04/05/[address] chest dated 03/28/2017. Lumbar MRI dated 01/01/2017. Bone scan dated 12/12/2015. RADIONUCLIDE AND DOSE: 21.3 millicuries Tc99m HDP. The route of agent administration: Intravenous. ADDITIONAL DRUGS AND DOSES: None. TECHNIQUE: Routine delayed images at 3 hour post radionuclide injection acquired of the bony skeleto n including anterior and posterior whole-body projections and additional focused images as needed. LIMITATIONS: None. FINDINGS: BONES: Areas of activity in the mid thoracic vertebrae, most pronounced at T10, as well as in the lumbar spine at the level of L2. Activity in the cervical spine. Mild activity in the shoul ders and hands. Otherwise no unusual bony activity. KIDNEYS: Symmetric excretion without obstruction. OTHER: No other significant finding. IMPRESSION: AREAS OF ACTIVITY IN THE SPINE WHICH CORRESPOND WITH NUMEROUS WEDGE COMPRESSION DEFORMIT IES. NO UNUSUAL ACTIVITY IN THE REMAINDER OF THE SKELETON. COMMENT: Quality measure 147: Current bone scan is compared with any available plain radiographs, p rior bone scans, and CT/MRI. TECHNICAL DOCUMENTATION: JOB ID: [id number] [employer]- All Rights Reserved
[2017-04-08 12:42] LABS: INTERNATIONAL RATION (INR) 0.99; PROTHROMBIN TIME 13.8 SEC (11.4-15.4)
[2017-04-08 12:43] LABS: PARTIAL THROMBOPLASTIN TIME 58.4 SEC (23.5-35.8)
[2017-04-08] MEDS ORDERED: FENTANYL CITRATE INJ/PF 100 MCG/2 ML AMPUL ONE (13:03)
[2017-04-08] MEDS ORDERED: MIDAZOLAM 2 MG/2 ML INJ ONE (13:03)
--- NOTE | 2017-04-08 14:45 | PDOC PROGRESS REPORT ---
Subjective Progress Note for:: 04/08/17 Subjective:: She was seen by the bedside, she had CT-guided needle biopsy of the lung mass today. The bone scan that was done did not show any metastases. She continues to require positive pressure ventilation with BiPAP Reason For Visit: ACUTE HYPERCAPNIC RESPIRATORY FAILURE,COPD,HTN Physical Exam Vital Signs: Temp Pulse Resp BP Pulse Ox 97.8 F 86 20 120/65 100 04/08/17 12:20 04/08/17 12:20 04/08/17 12:20 04/08/17 12:20 04/08/17 12:20 Intake & Output 04/07/17 04/08/17 04/09/17 06:59 06:59 06:59 Intake Total 2141 2708 118 Output Total 2426 1855 1250 Balance -284 383 -1132 Weight 76.5 kg 78 kg General appearance: PRESENT: mild distress Head exam: PRESENT: atraumatic, normocephalic Eye exam: PRESENT: PERRLA Neck exam: PRESENT: full ROM Respiratory exam: PRESENT: clear to auscultation ghulam Cardiovascular exam: PRESENT: RRR, +S1, +S2 Vascular exam: PRESENT: normal capillary refill GI/Abdominal exam: PRESENT: normal bowel sounds, soft Rectal exam: PRESENT: deferred Neurological exam: PRESENT: alert, awake, oriented to person, oriented to place , oriented to time, oriented to situation, CN II-XII grossly intact Psychiatric exam: PRESENT: appropriate affect, normal mood Skin exam: PRESENT: dry, intact, warm Results Laboratory Results: 03/30/17 06:08 04/01/17 05:11 Impressions: Chest CT 03/28/17 00:00 IMPRESSION: 1. Significant increase in size of pleural-based left lower lobe lung mass now measuring 6.2 cm. This is concerning malignancy. This lesion would be amenable to percutaneous biopsy. 2. Central lobular emphysematous changes. 3. Coronary artery atherosclerosis. This exam was performed according to our departmental dose-optimization program, which includes automated exposure control, adjustment of the mA and/or kV according to patient size and/or use of iterative reconstruction technique. Abdomen/Pelvis CT 04/05/17 00:00 IMPRESSION: No evidence of metastatic disease. Body Scan Nuclear Medicine 04/08/17 00:00 IMPRESSION: AREAS OF ACTIVITY IN THE SPINE WHICH CORRESPOND WITH NUMEROUS WEDGE COMPRESSION DEFORMITIES. NO UNUSUAL ACTIVITY IN THE REMAINDER OF THE SKELETON. Assessment & Plan - Diagnosis (1) Acute hypercapnic respiratory failure Is this a current diagnosis for this admission?: Yes (2) Very severe chronic obstructive pulmonary disease Is this a current diagnosis for this admission?: Yes (3) HTN (hypertension) Qualifiers: Hypertension type: essential hypertension Qualified Code(s): I10 - Essential (primary) hypertension Is this a current diagnosis for this admission?: Yes (4) Malignant neoplasm of lower lobe, left bronchus or lung Is this a current diagnosis for this admission?: Yes
--- NOTE | 2017-04-08 14:51 | RADIOLOGY REPORT (SQ) ---
EXAM DESCRIPTION: CT BIOPSY LUNG/MEDIASTINUM COMPLETED DATE/TIME: 04/08/2017 2:07 pm REASON FOR STUDY: lung mass COMPARISON: None. TECHNIQUE: CT guided biopsy of the left lung mass performed with conscious sedation. CT Fluoroscopy Time: 6.[address] scanners at this facility use dose modulation, iterative reconstruction, and/or weight based d osing when appropriate to reduce radiation dose to as low as reasonably achievable (ALARA). [facility]: Dose Right [facility]: CareDose [facility]: Dose Right [facility]: Teradose 4D [facility]: [employer] RADIATION DOSE: CT Rad equipment meets quality standard of care and radiation dose reduction techni ques were employed. CTDIvol: 14.0 - 14.2 mGy. DLP: 585 mGy-cm.mGy. FINDINGS: The procedure was discussed with the patient and the patient agreed to the procedure. Prio r to the procedure, a time out was performed to verify the patient's identity and planned procedure. IV sedation was administered and physician direction by the registered nurse using 0.5 milligrams of Versed and 25 micrograms of fentanyl. Physiologic monitoring was provided before, during, and after s edation. The total sedation time was 30 minutes. Documentation face to face time, the performing proceduralist, spent monitoring the patient: [address] scanning was performed to localize the percutaneous site for the biopsy approach. After sterile skin prep and local lidocaine for skin and deep tissue anesthesia, a coaxial biopsy nee dle was used to obtain multiple cores of tissue. The biopsy tissue was submitted to the lab in forma dianna. There were no immediate complications. Pathology is pending at the time of dictation. IMPRESSION: CT GUIDED BIOPSY OF THE LEFT LUNG MASS PERFORMED WITHOUT IMMEDIATE COMPLICATION. PATHOL OGY PENDING. COMMENT: Quality ID 145: Final reports for procedures using fluoroscopy that document radiation exp osure indices, or exposure time and number of fluorographic images (if radiation exposure indices are not available) Patient medication list reviewed: Yes- Quality ID# [id number]:Eligible professional attests to documenting i n the medical record they obtained, updated, or reviewed the patient's current medications.. TECHNICAL DOCUMENTATION: JOB ID: [id number] Quality ID# 436: Final reports with documentation of one or more dose reduction techniques (e.g., Aut omated exposure control, adjustment of the mA and/or kV according to patient size, use of iterative r econstruction technique) 2010 [employer]- All Rights Reserved
[2017-04-08 14:52] LABS: ABSOLUTE BASOPHILS # (AUTO) 0.1 10^3/uL (0.0-0.2); ABSOLUTE EOSINOPHILS # (AUTO) 0.6 10^3/uL (0.0-0.6); ABSOLUTE LYMPHOCYTES (AUTO) 1.5 10^3/uL (0.5-4.7); ABSOLUTE NEUT (AUTO) 6.5 10^3/uL (1.7-8.2); EOSINOPHILS % (AUTO) 6.1 % (0-6); HEMATOCRIT 29.5 % (36.0-47.0); HEMOGLOBIN 9.6 g/dL (12.0-15.5); LYMPHOCYTES % (AUTO) 15.3 % (13-45); MEAN CORPUSCULAR HEMOGLOBIN 28.2 pg (27.0-33.4); MEAN CORPUSCULAR HGB CONC 32.6 g/dL (32.0-36.0); MEAN CORPUSCULAR VOLUME 87 fl (80-97); MONOCYTES % (AUTO) 10.4 % (3-13); PLATELET COUNT 338 10^3/uL (150-450); RED CELL DISTRIBUTION WIDTH 16.9 % (11.5-14.0); SEGMENTED NEUTROPHILS % (AUTO) 67.2 % (42-78); TOTAL CELLS COUNTED % (AUTO) 100 %; WHITE BLOOD COUNT 9.7 10^3/uL (4.0-10.5)
--- NOTE | 2017-04-08 14:52 | RADIOLOGY REPORT (SQ) ---
EXAM DESCRIPTION: CHEST SINGLE VIEW COMPLETED DATE/TIME: 04/08/2017 2:43 pm REASON FOR STUDY: POST LUNG BX COMPARISON: 04/01/2017. EXAM PARAMETERS: NUMBER OF VIEWS: One view. TECHNIQUE: Single frontal radiographic view of the chest acquired. RADIATION DOSE: NA LIMITATIONS: None. FINDINGS: LUNGS AND PLEURA: Left lung mass unchanged. No pneumothorax. Right lung clear. MEDIASTINUM AND HILAR STRUCTURES: No masses. Contour normal. HEART AND VASCULAR STRUCTURES: Heart normal in size. Normal vasculature. BONES: No acute findings. HARDWARE: Multiple surgical markers. OTHER: No other significant finding. IMPRESSION: NO PNEUMOTHORAX FOLLOWING PERCUTANEOUS BIOPSY OF THE LEFT LUNG MASS. TECHNICAL DOCUMENTATION: JOB ID: [id number] [employer]- All Rights Reserved
[2017-04-08 15:03] LABS: ALANINE AMINOTRANSFERASE 24 U/L (9-52); ALBUMIN 2.9 g/dL (3.5-5.0); ALKALINE PHOSPHATASE 76 U/L (38-126); ANION GAP 8 (5-19); ASPARTATE AMINO TRANSFERASE 15 U/L (14-36); BILIRUBIN,DIRECT 0.1 mg/dL (0.0-0.4); BILIRUBIN,TOTAL 0.1 mg/dL (0.2-1.3); BLOOD UREA NITROGEN 12 mg/dL (7-20); CARBON DIOXIDE 28 mmol/L (22-30); CHLORIDE 109 mmol/L (98-107); GLUCOSE 78 mg/dL (75-110); POTASSIUM 3.4 mmol/L (3.6-5.0); SODIUM 145.4 mmol/L (137-145); TOTAL PROTEIN 5.9 g/dL (6.3-8.2)
--- NOTE | 2017-04-08 16:36 | RADIOLOGY REPORT (SQ) ---
EXAM DESCRIPTION: CHEST SINGLE VIEW COMPLETED DATE/TIME: 04/08/2017 4:27 pm REASON FOR STUDY: POST BX +2HR COMPARISON: 04/08/2017 EXAM PARAMETERS: NUMBER OF VIEWS: One view. TECHNIQUE: Single frontal radiographic view of the chest acquired. RADIATION DOSE: NA LIMITATIONS: None. FINDINGS: LUNGS AND PLEURA: Stable appearance of mass left upper lobe. Lungs and pleural spaces oth erwise clear. No pneumothorax. MEDIASTINUM AND HILAR STRUCTURES: No masses. Contour normal. HEART AND VASCULAR STRUCTURES: Heart stable in size. Normal vasculature. BONES: No acute findings. HARDWARE: Stable. OTHER: No other significant finding. IMPRESSION: STABLE APPEARANCE OF THE CHEST STATUS POST LUNG BIOPSY. NO PNEUMOTHORAX IDENTIFIED. TECHNICAL DOCUMENTATION: JOB ID: [id number] [employer]- All Rights Reserved
--- NOTE | 2017-04-08 18:31 | PDOC PROGRESS REPORT ---
Subjective Progress Note for:: 04/08/17 Subjective:: awake Reason For Visit: ACUTE HYPERCAPNIC RESPIRATORY FAILURE,COPD,HTN Physical Exam Vital Signs: Temp Pulse Resp BP Pulse Ox 97.7 F 80 17 121/59 L 94 04/08/17 07:45 04/08/17 07:47 04/08/17 07:47 04/08/17 07:45 04/08/17 07:47 Intake & Output 04/07/17 04/08/17 04/09/17 06:59 06:59 06:59 Intake Total 2141 2708 Output Total 2425 2325 Balance -284 383 Weight 76.5 kg 78 kg General appearance: PRESENT: no acute distress, cooperative, well-developed Head exam: PRESENT: atraumatic, normocephalic Eye exam: PRESENT: conjunctiva pale, EOMI Mouth exam: PRESENT: moist, neck supple, tongue midline Neck exam: ABSENT: carotid bruit, JVD, lymphadenopathy, thyromegaly, tracheal deviation, tracheostomy Respiratory exam: PRESENT: crackles, decreased breath sounds, prolonged expiratory phas, rhonchi, symmetrical, unlabored. ABSENT: accessory muscle use , chest wall tenderness, clear to auscultation ghulam, rales, retraction, stridor, tachypnea Cardiovascular exam: PRESENT: RRR, +S1, +S2. ABSENT: rubs Pulses: PRESENT: normal radial pulses GI/Abdominal exam: PRESENT: normal bowel sounds, soft. ABSENT: distended, guarding, mass, organolmegaly, rebound, tenderness Extremities exam: ABSENT: clubbing, joint swelling Musculoskeletal exam: ABSENT: deformity, dislocation Neurological exam: PRESENT: awake Psychiatric exam: PRESENT: normal mood Skin exam: PRESENT: dry, warm Results Laboratory Results: 03/30/17 06:08 04/01/17 05:11 Impressions: Chest CT 03/28/17 00:00 IMPRESSION: 1. Significant increase in size of pleural-based left lower lobe lung mass now measuring 6.2 cm. This is concerning malignancy. This lesion would be amenable to percutaneous biopsy. 2. Central lobular emphysematous changes. 3. Coronary artery atherosclerosis. This exam was performed according to our departmental dose-optimization program, which includes automated exposure control, adjustment of the mA and/or kV according to patient size and/or use of iterative reconstruction technique. Chest X-Ray 04/01/17 10:15 IMPRESSION: Left lung mass. No significant change. Abdomen/Pelvis CT 04/05/17 00:00 IMPRESSION: No evidence of metastatic disease. Assessment & Plan - Diagnosis (1) Acute hypercapnic respiratory failure Is this a current diagnosis for this admission?: Yes Plan: unchanged last 24hrs (2) Lung cancer Qualifiers: Lung location: unspecified part of lung Is this a current diagnosis for this admission?: Yes Plan: Hospice versus comfort care (3) MRSA pneumonia Qualifiers: Laterality: unspecified laterality Lung location: unspecified part of lung Qualified Code(s): J15.212 - Pneumonia due to Methicillin resistant Staphylococcus aureus Is this a current diagnosis for this admission?: Yes - Plan Summary Plan Summary: per onco;linnea re biopsy
[2017-04-08] MEDS: ATORVASTATIN CALCIUM 10 MG TABLET PO SCH (21:41)
[2017-04-08] MEDS: MIRTAZAPINE 15 MG TABLET PO SCH (21:46)
[2017-04-08] MEDS: CETIRIZINE 5 MG TABLET PO SCH (21:47)
[2017-04-09] MEDS: IPRATROPIUM/ALBUTEROL 0.5-2.5 MG/3 ML AMPUL NEB SCH ×6 (00:14→19:08)
[2017-04-09 05:05] LABS: ABSOLUTE EOSINOPHILS # (AUTO) 0.3 10^3/uL (0.0-0.6); ABSOLUTE LYMPHOCYTES (AUTO) 1.7 10^3/uL (0.5-4.7); ABSOLUTE MONOCYTES (AUTO) 0.8 10^3/uL (0.1-1.4); ABSOLUTE NEUT (AUTO) 4.5 10^3/uL (1.7-8.2); BASOPHILS % (AUTO) 0.6 % (0-2); EOSINOPHILS % (AUTO) 4.5 % (0-6); HEMATOCRIT 24.4 % (36.0-47.0); LYMPHOCYTES % (AUTO) 22.5 % (13-45); MEAN CORPUSCULAR HEMOGLOBIN 28.1 pg (27.0-33.4); MEAN CORPUSCULAR HGB CONC 32.7 g/dL (32.0-36.0); MEAN CORPUSCULAR VOLUME 86 fl (80-97); MONOCYTES % (AUTO) 10.7 % (3-13); PLATELET COUNT 275 10^3/uL (150-450); RED BLOOD COUNT 2.84 10^6/uL (3.72-5.28); RED CELL DISTRIBUTION WIDTH 16.2 % (11.5-14.0); SEGMENTED NEUTROPHILS % (AUTO) 61.7 % (42-78); TOTAL CELLS COUNTED % (AUTO) 100 %; WHITE BLOOD COUNT 7.4 10^3/uL (4.0-10.5)
[2017-04-09 05:32] LABS: ALANINE AMINOTRANSFERASE 26 U/L (9-52); ALBUMIN 2.5 g/dL (3.5-5.0); ALKALINE PHOSPHATASE 71 U/L (38-126); ANION GAP 6 (5-19); ASPARTATE AMINO TRANSFERASE 14 U/L (14-36); BILIRUBIN,DIRECT 0.2 mg/dL (0.0-0.4); BILIRUBIN,TOTAL 0.2 mg/dL (0.2-1.3); BLOOD UREA NITROGEN 11 mg/dL (7-20); CALCIUM 8.8 mg/dL (8.4-10.2); CARBON DIOXIDE 26 mmol/L (22-30); CHLORIDE 113 mmol/L (98-107); GLUCOSE 64 mg/dL (75-110); POTASSIUM 3.7 mmol/L (3.6-5.0); SODIUM 145.4 mmol/L (137-145); TOTAL PROTEIN 4.9 g/dL (6.3-8.2)
[2017-04-09] MEDS: PREGABALIN 75 MG CAPSULE PO SCH ×3 (05:47→21:34)
[2017-04-09] MEDS: BUSPIRONE HCL 10 MG TABLET PO SCH ×3 (05:47→21:33)
[2017-04-09] MEDS: LANSOPRAZOLE 30 MG TAB.RAP.DR PO SCH (05:48)
[2017-04-09] MEDS: CEFEPIME 2 GM/D5W RTU 2 GM/50 ML RTUPB IV SCH (05:49)
[2017-04-09] MEDS: OXYCODONE HCL IR 5 MG TABLET PO PRN (08:19)
[2017-04-09] MEDS: OXYCODONE-ACETAMINOPHEN 5-325 MG TABLET PO PRN ×2 (08:19→19:48)
[2017-04-09] MEDS: CITALOPRAM HYDROBROMIDE 20 MG TABLET PO SCH (10:15)
[2017-04-09] MEDS: METHOCARBAMOL 500 MG TABLET PO SCH ×2 (10:15→21:32)
[2017-04-09] MEDS: SULFAMETHOXAZOLE/TRIMETHOPRIM 800-160 MG TABLET PO SCH ×2 (10:15→17:37)
[2017-04-09] MEDS: CLONIDINE HCL 0.1 MG TABLET PO SCH ×2 (10:16→21:32)
[2017-04-09] MEDS: BUDESONIDE/FORMOTEROL 160-4.5 MCG 60 PUFF/6 GM MDI IH SCH ×2 (10:16→21:34)
[2017-04-09] MEDS: LOSARTAN POTASSIUM 50 MG TABLET PO SCH (10:16)
[2017-04-09] MEDS: PREDNISONE 5 MG TABLET PO SCH (10:16)
[2017-04-09] MEDS: AMLODIPINE BESYLATE 5 MG TABLET PO SCH (10:16)
[2017-04-09] MEDS: TIOTROPIUM BROMIDE DPI 5 CAP/KIT (18 MCG/CAP) IH SCH (10:17)
[2017-04-09] MEDS: NORMAL SALINE 1000 ML 1,000 ML IV PRN (10:54)
[2017-04-09] MEDS: MULTIVITAMIN TABLET PO SCH (12:14)
[2017-04-09] MEDS: FERROUS SULFATE 325 MG TABLET PO SCH (12:14)
--- NOTE | 2017-04-09 14:07 | PDOC PROGRESS REPORT ---
Subjective Progress Note for:: 04/09/17 Subjective:: She was seen by the bedside, she has polymicrobial culture in the sputum, 4+ Proteus mirabilis, 4+ Pseudomonas, 2+ staph aureus these organisms are sensitive to cefazolin. The pathology of the lung biopsy is not back yet, the bone scan did not show any metastases, the CT scan of the abdomen and pelvis did not show any metastases. Consultation will be obtained from radiation oncology, Dr. Kat. She is currently being followed by medical oncologist Dr. Merino Reason For Visit: ACUTE HYPERCAPNIC RESPIRATORY FAILURE,COPD,HTN Physical Exam Vital Signs: Temp Pulse Resp BP Pulse Ox 98.2 F 86 18 118/68 98 04/09/17 07:16 04/09/17 11:52 04/09/17 11:52 04/09/17 07:16 04/09/17 11:52 Intake & Output 04/08/17 04/09/17 04/10/17 06:59 06:59 06:59 Intake Total 2708 2603 Output Total 2325 2600 Balance 383 3 Weight 78 kg 79.3 kg General appearance: PRESENT: no acute distress Head exam: PRESENT: atraumatic, normocephalic Eye exam: PRESENT: conjunctiva pink, EOMI, PERRLA Ear exam: PRESENT: normal external ear exam Mouth exam: PRESENT: moist, tongue midline Neck exam: PRESENT: full ROM Respiratory exam: PRESENT: rhonchi Cardiovascular exam: PRESENT: RRR, +S1, +S2 Vascular exam: PRESENT: normal capillary refill GI/Abdominal exam: PRESENT: normal bowel sounds, soft Rectal exam: PRESENT: deferred Neurological exam: PRESENT: alert, awake, oriented to person, oriented to place , oriented to time, oriented to situation, CN II-XII grossly intact. ABSENT: motor sensory deficit Psychiatric exam: PRESENT: appropriate affect, normal mood Skin exam: PRESENT: dry, intact, warm Results Laboratory Results: 04/09/17 04:18 04/09/17 04:18 04/08/17 04/08/17 04/09/17 12:15 12:15 04:18 WBC 9.7 7.4 RBC 3.40 L 2.84 L Hgb 9.6 L 8.0 L Hct 29.5 L 24.4 L MCV 87 86 MCH 28.2 28.1 MCHC 32.6 32.7 RDW 16.9 H 16.2 H Plt Count 338 275 Seg Neutrophils % 67.2 61.7 Lymphocytes % 15.3 22.5 Monocytes % 10.4 10.7 Eosinophils % 6.1 H 4.5 Basophils % 1.0 0.6 Absolute Neutrophils 6.5 4.5 Absolute Lymphocytes 1.5 1.7 Absolute Monocytes 1.0 0.8 Absolute Eosinophils 0.6 0.3 Absolute Basophils 0.1 0.0 Sodium 145.4 H Potassium 3.4 L Chloride 109 H Carbon Dioxide 28 Anion Gap 8 BUN 12 Creatinine 0.77 Est GFR ( Amer) > 60 Est GFR (Non-Af Amer) > 60 Glucose 78 Calcium 9.0 Total Bilirubin 0.1 L AST 15 ALT 24 Alkaline Phosphatase 76 Total Protein 5.9 L Albumin 2.9 L 04/09/17 04:18 WBC RBC Hgb Hct MCV MCH MCHC RDW Plt Count Seg Neutrophils % Lymphocytes % Monocytes % Eosinophils % Basophils % Absolute Neutrophils Absolute Lymphocytes Absolute Monocytes Absolute Eosinophils Absolute Basophils Sodium 145.4 H Potassium 3.7 Chloride 113 H Carbon Dioxide 26 Anion Gap 6 BUN 11 Creatinine 0.81 Est GFR ( Amer) > 60 Est GFR (Non-Af Amer) > 60 Glucose 64 L Calcium 8.8 Total Bilirubin 0.2 AST 14 ALT 26 Alkaline Phosphatase 71 Total Protein 4.9 L Albumin 2.5 L Impressions: Chest CT 03/28/17 00:00 IMPRESSION: 1. Significant increase in size of pleural-based left lower lobe lung mass now measuring 6.2 cm. This is concerning malignancy. This lesion would be amenable to percutaneous biopsy. 2. Central lobular emphysematous changes. 3. Coronary artery atherosclerosis. This exam was performed according to our departmental dose-optimization program, which includes automated exposure control, adjustment of the mA and/or kV according to patient size and/or use of iterative reconstruction technique. Abdomen/Pelvis CT 04/05/17 00:00 IMPRESSION: No evidence of metastatic disease. Body Scan Nuclear Medicine 04/08/17 00:00 IMPRESSION: AREAS OF ACTIVITY IN THE SPINE WHICH CORRESPOND WITH NUMEROUS WEDGE COMPRESSION DEFORMITIES. NO UNUSUAL ACTIVITY IN THE REMAINDER OF THE SKELETON. Chest X-Ray 04/08/17 00:00 IMPRESSION: STABLE APPEARANCE OF THE CHEST STATUS POST LUNG BIOPSY. NO PNEUMOTHORAX IDENTIFIED. Lung Biopsy CT 04/08/17 08:00 IMPRESSION: CT GUIDED BIOPSY OF THE LEFT LUNG MASS PERFORMED WITHOUT IMMEDIATE COMPLICATION. PATHOLOGY PENDING. Assessment & Plan - Diagnosis (1) Acute hypercapnic respiratory failure Is this a current diagnosis for this admission?: Yes (2) Very severe chronic obstructive pulmonary disease Is this a current diagnosis for this admission?: Yes (3) HTN (hypertension) Qualifiers: Hypertension type: essential hypertension Qualified Code(s): I10 - Essential (primary) hypertension Is this a current diagnosis for this admission?: Yes (4) Malignant neoplasm of lower lobe, left bronchus or lung Is this a current diagnosis for this admission?: Yes Plan: Consultation requested from radiation oncology (5) Sepsis, polymicrobial Is this a current diagnosis for this admission?: Yes Plan: She will be started on cefazolin
[2017-04-09] MEDS ORDERED: CEFAZOLIN 2 GM/D5W RTU 2 GM/50 ML RTUPB IV SCH (14:15)
[2017-04-09] MEDS: CEFEPIME HCL 2 GM in DEXTROSE 5%-WATER 50 ML IV SCH (17:36)
[2017-04-09] MEDS ORDERED: CEFEPIME 2 GM/D5W RTU 2 GM/50 ML RTUPB IV SCH (18:00)
[2017-04-09 18:07] LABS: ABSOLUTE BASOPHILS # (AUTO) 0.1 10^3/uL (0.0-0.2); ABSOLUTE EOSINOPHILS # (AUTO) 0.2 10^3/uL (0.0-0.6); ABSOLUTE LYMPHOCYTES (AUTO) 0.9 10^3/uL (0.5-4.7); ABSOLUTE MONOCYTES (AUTO) 0.6 10^3/uL (0.1-1.4); ABSOLUTE NEUT (AUTO) 8.3 10^3/uL (1.7-8.2); BASOPHILS % (AUTO) 0.5 % (0-2); EOSINOPHILS % (AUTO) 2.1 % (0-6); HEMATOCRIT 29.2 % (36.0-47.0); HEMOGLOBIN 9.4 g/dL (12.0-15.5); MEAN CORPUSCULAR HEMOGLOBIN 27.8 pg (27.0-33.4); MEAN CORPUSCULAR HGB CONC 32.3 g/dL (32.0-36.0); MEAN CORPUSCULAR VOLUME 86 fl (80-97); MONOCYTES % (AUTO) 6.4 % (3-13); PLATELET COUNT 347 10^3/uL (150-450); RED CELL DISTRIBUTION WIDTH 16.3 % (11.5-14.0); TOTAL CELLS COUNTED % (AUTO) 100 %; WHITE BLOOD COUNT 10.2 10^3/uL (4.0-10.5)
[2017-04-09] MEDS: CETIRIZINE 5 MG TABLET PO SCH (21:33)
[2017-04-09] MEDS: ATORVASTATIN CALCIUM 10 MG TABLET PO SCH (21:34)
[2017-04-09] MEDS: MIRTAZAPINE 15 MG TABLET PO SCH (21:34)
[2017-04-10] MEDS: NORMAL SALINE 1000 ML 1,000 ML IV PRN ×3 (00:02→22:28)
[2017-04-10] MEDS: IPRATROPIUM/ALBUTEROL 0.5-2.5 MG/3 ML AMPUL NEB SCH ×6 (04:18→19:46)
[2017-04-10] MEDS: BUSPIRONE HCL 10 MG TABLET PO SCH ×3 (05:36→22:24)
[2017-04-10] MEDS: LANSOPRAZOLE 30 MG TAB.RAP.DR PO SCH (05:36)
[2017-04-10] MEDS: PREGABALIN 75 MG CAPSULE PO SCH ×3 (05:37→22:24)
[2017-04-10] MEDS: CEFEPIME HCL 2 GM in DEXTROSE 5%-WATER 50 ML IV SCH ×2 (05:48→17:24)
[2017-04-10] MEDS: OXYCODONE-ACETAMINOPHEN 5-325 MG TABLET PO PRN ×3 (06:12→20:17)
[2017-04-10] MEDS: AMLODIPINE BESYLATE 5 MG TABLET PO SCH (09:33)
[2017-04-10] MEDS: ENOXAPARIN SODIUM INJ 40 MG/0.4 ML DISP.SYRIN SUBCUT SCH (09:33)
[2017-04-10] MEDS: METHOCARBAMOL 500 MG TABLET PO SCH ×2 (09:33→22:21)
[2017-04-10] MEDS: BUDESONIDE/FORMOTEROL 160-4.5 MCG 60 PUFF/6 GM MDI IH SCH ×2 (09:33→22:25)
[2017-04-10] MEDS: PREDNISONE 5 MG TABLET PO SCH (09:34)
[2017-04-10] MEDS: CLONIDINE HCL 0.1 MG TABLET PO SCH ×2 (09:34→22:21)
[2017-04-10] MEDS: CITALOPRAM HYDROBROMIDE 20 MG TABLET PO SCH (09:34)
[2017-04-10] MEDS: SULFAMETHOXAZOLE/TRIMETHOPRIM 800-160 MG TABLET PO SCH ×2 (09:34→17:24)
[2017-04-10] MEDS: LOSARTAN POTASSIUM 50 MG TABLET PO SCH (09:34)
[2017-04-10] MEDS: TIOTROPIUM BROMIDE DPI 5 CAP/KIT (18 MCG/CAP) IH SCH (09:35)
[2017-04-10] MEDS: FERROUS SULFATE 325 MG TABLET PO SCH (11:39)
[2017-04-10] MEDS: MULTIVITAMIN TABLET PO SCH (11:39)
--- NOTE | 2017-04-10 12:54 | PDOC PROGRESS REPORT ---
Subjective Progress Note for:: 04/09/17 Subjective:: awake interactive and appropriate Reason For Visit: ACUTE HYPERCAPNIC RESPIRATORY FAILURE,COPD,HTN Physical Exam Vital Signs: Temp Pulse Resp BP Pulse Ox 97.6 F 79 21 H 103/57 L 97 04/09/17 03:32 04/09/17 07:49 04/09/17 07:49 04/09/17 03:32 04/09/17 07:49 Intake & Output 04/08/17 04/09/17 04/10/17 06:59 06:59 06:59 Intake Total 2708 2603 Output Total 2325 2600 Balance 383 3 Weight 78 kg 79.3 kg General appearance: PRESENT: no acute distress, cooperative, disheveled, thin, well-developed. ABSENT: mild distress, morbidly obese, obese, severe distress Head exam: PRESENT: atraumatic, normocephalic Eye exam: PRESENT: conjunctiva pale, EOMI. ABSENT: conjunctival injection, conjunctiva pink, nystagmus, periorbital swelling, scleral icterus Mouth exam: PRESENT: dry mucosa, neck supple, tongue midline Neck exam: ABSENT: carotid bruit, JVD, lymphadenopathy, thyromegaly, tracheal deviation, tracheostomy Respiratory exam: PRESENT: crackles, decreased breath sounds, prolonged expiratory phas, rhonchi, symmetrical, unlabored, wheezes. ABSENT: accessory muscle use, chest wall tenderness, clear to auscultation ghulam, rales, retraction , stridor, tachypnea Cardiovascular exam: PRESENT: RRR, +S1, +S2 Pulses: PRESENT: normal radial pulses GI/Abdominal exam: PRESENT: normal bowel sounds, soft. ABSENT: distended, guarding, mass, organolmegaly, rebound, tenderness Extremities exam: ABSENT: clubbing, full ROM, joint swelling Musculoskeletal exam: ABSENT: deformity, dislocation Neurological exam: PRESENT: alert, awake Skin exam: PRESENT: dry, warm Results Laboratory Results: 04/09/17 04:18 04/09/17 04:18 04/08/17 04/08/17 04/09/17 12:15 12:15 04:18 WBC 9.7 7.4 RBC 3.40 L 2.84 L Hgb 9.6 L 8.0 L Hct 29.5 L 24.4 L MCV 87 86 MCH 28.2 28.1 MCHC 32.6 32.7 RDW 16.9 H 16.2 H Plt Count 338 275 Seg Neutrophils % 67.2 61.7 Lymphocytes % 15.3 22.5 Monocytes % 10.4 10.7 Eosinophils % 6.1 H 4.5 Basophils % 1.0 0.6 Absolute Neutrophils 6.5 4.5 Absolute Lymphocytes 1.5 1.7 Absolute Monocytes 1.0 0.8 Absolute Eosinophils 0.6 0.3 Absolute Basophils 0.1 0.0 Sodium 145.4 H Potassium 3.4 L Chloride 109 H Carbon Dioxide 28 Anion Gap 8 BUN 12 Creatinine 0.77 Est GFR ( Amer) > 60 Est GFR (Non-Af Amer) > 60 Glucose 78 Calcium 9.0 Total Bilirubin 0.1 L AST 15 ALT 24 Alkaline Phosphatase 76 Total Protein 5.9 L Albumin 2.9 L 04/09/17 04:18 WBC RBC Hgb Hct MCV MCH MCHC RDW Plt Count Seg Neutrophils % Lymphocytes % Monocytes % Eosinophils % Basophils % Absolute Neutrophils Absolute Lymphocytes Absolute Monocytes Absolute Eosinophils Absolute Basophils Sodium 145.4 H Potassium 3.7 Chloride 113 H Carbon Dioxide 26 Anion Gap 6 BUN 11 Creatinine 0.81 Est GFR ( Amer) > 60 Est GFR (Non-Af Amer) > 60 Glucose 64 L Calcium 8.8 Total Bilirubin 0.2 AST 14 ALT 26 Alkaline Phosphatase 71 Total Protein 4.9 L Albumin 2.5 L Impressions: Chest CT 03/28/17 00:00 IMPRESSION: 1. Significant increase in size of pleural-based left lower lobe lung mass now measuring 6.2 cm. This is concerning malignancy. This lesion would be amenable to percutaneous biopsy. 2. Central lobular emphysematous changes. 3. Coronary artery atherosclerosis. This exam was performed according to our departmental dose-optimization program, which includes automated exposure control, adjustment of the mA and/or kV according to patient size and/or use of iterative reconstruction technique. Abdomen/Pelvis CT 04/05/17 00:00 IMPRESSION: No evidence of metastatic disease. Body Scan Nuclear Medicine 04/08/17 00:00 IMPRESSION: AREAS OF ACTIVITY IN THE SPINE WHICH CORRESPOND WITH NUMEROUS WEDGE COMPRESSION DEFORMITIES. NO UNUSUAL ACTIVITY IN THE REMAINDER OF THE SKELETON. Chest X-Ray 04/08/17 00:00 IMPRESSION: STABLE APPEARANCE OF THE CHEST STATUS POST LUNG BIOPSY. NO PNEUMOTHORAX IDENTIFIED. Lung Biopsy CT 04/08/17 08:00 IMPRESSION: CT GUIDED BIOPSY OF THE LEFT LUNG MASS PERFORMED WITHOUT IMMEDIATE COMPLICATION. PATHOLOGY PENDING. Assessment & Plan - Diagnosis (1) Acute hypercapnic respiratory failure Is this a current diagnosis for this admission?: Yes Plan: Improving (2) Lung cancer Qualifiers: Lung location: unspecified part of lung Is this a current diagnosis for this admission?: Yes Plan: Schedule for CT-guided needle biopsy today (3) MRSA pneumonia Qualifiers: Laterality: unspecified laterality Lung location: unspecified part of lung Qualified Code(s): J15.212 - Pneumonia due to Methicillin resistant Staphylococcus aureus Is this a current diagnosis for this admission?: Yes Plan: discussed w/pharmacy d/c levoquin and ceftazidine started SeptraDS and cefipine
--- NOTE | 2017-04-10 12:57 | PDOC PROGRESS REPORT ---
Subjective Progress Note for:: 04/10/17 Subjective:: awake interactive and appropriate Reason For Visit: ACUTE HYPERCAPNIC RESPIRATORY FAILURE,COPD,HTN Physical Exam Vital Signs: Temp Pulse Resp BP Pulse Ox 97.4 F 77 18 115/61 94 04/10/17 07:17 04/10/17 07:50 04/10/17 07:50 04/10/17 07:17 04/10/17 07:17 Intake & Output 04/09/17 04/10/17 04/11/17 06:59 06:59 06:59 Intake Total 2603 2668 Output Total 2600 0 Balance 3 618 Weight 79.3 kg 79.4 kg General appearance: PRESENT: no acute distress, cooperative, disheveled, well- developed. ABSENT: mild distress, morbidly obese, obese, severe distress Head exam: PRESENT: atraumatic, normocephalic Eye exam: PRESENT: conjunctiva pale, EOMI. ABSENT: conjunctival injection, conjunctiva pink, nystagmus Mouth exam: PRESENT: dry mucosa, neck supple, tongue midline Neck exam: ABSENT: carotid bruit, JVD, lymphadenopathy, thyromegaly, tracheal deviation, [place] - [id number] Respiratory exam: PRESENT: crackles, decreased breath sounds, prolonged expiratory phas, rhonchi, symmetrical, unlabored, wheezes. ABSENT: accessory muscle use, chest wall tenderness, clear to auscultation ghulam, rales, retraction , stridor, tachypnea Cardiovascular exam: PRESENT: RRR, +S1, +S2 Pulses: PRESENT: normal radial pulses GI/Abdominal exam: PRESENT: normal bowel sounds, soft. ABSENT: distended, guarding, mass, organolmegaly, rebound, tenderness Extremities exam: ABSENT: clubbing, joint swelling Musculoskeletal exam: ABSENT: deformity, dislocation, full ROM Neurological exam: PRESENT: alert, awake Skin exam: PRESENT: dry, warm Results Laboratory Results: 04/09/17 18:00 04/09/17 04:18 04/09/17 04/09/17 17:17 18:00 WBC Cancelled 10.2 RBC Cancelled 3.40 L Hgb Cancelled 9.4 L Hct Cancelled 29.2 L MCV Cancelled 86 MCH Cancelled 27.8 MCHC Cancelled 32.3 RDW Cancelled 16.3 H Plt Count Cancelled 347 Seg Neutrophils % Cancelled 82.0 H Lymphocytes % Cancelled 9.0 L Monocytes % Cancelled 6.4 Eosinophils % Cancelled 2.1 Basophils % Cancelled 0.5 Absolute Neutrophils Cancelled 8.3 H Absolute Lymphocytes Cancelled 0.9 Absolute Monocytes Cancelled 0.6 Absolute Eosinophils Cancelled 0.2 Absolute Basophils Cancelled 0.1 Impressions: Chest CT 03/28/17 00:00 IMPRESSION: 1. Significant increase in size of pleural-based left lower lobe lung mass now measuring 6.2 cm. This is concerning malignancy. This lesion would be amenable to percutaneous biopsy. 2. Central lobular emphysematous changes. 3. Coronary artery atherosclerosis. This exam was performed according to our departmental dose-optimization program, which includes automated exposure control, adjustment of the mA and/or kV according to patient size and/or use of iterative reconstruction technique. Abdomen/Pelvis CT 04/05/17 00:00 IMPRESSION: No evidence of metastatic disease. Body Scan Nuclear Medicine 04/08/17 00:00 IMPRESSION: AREAS OF ACTIVITY IN THE SPINE WHICH CORRESPOND WITH NUMEROUS WEDGE COMPRESSION DEFORMITIES. NO UNUSUAL ACTIVITY IN THE REMAINDER OF THE SKELETON. Chest X-Ray 04/08/17 00:00 IMPRESSION: STABLE APPEARANCE OF THE CHEST STATUS POST LUNG BIOPSY. NO PNEUMOTHORAX IDENTIFIED. Lung Biopsy CT 04/08/17 08:00 IMPRESSION: CT GUIDED BIOPSY OF THE LEFT LUNG MASS PERFORMED WITHOUT IMMEDIATE COMPLICATION. PATHOLOGY PENDING. Assessment & Plan - Diagnosis (1) Acute hypercapnic respiratory failure Is this a current diagnosis for this admission?: Yes Plan: remains on NIPPV (2) Lung cancer Qualifiers: Lung location: unspecified part of lung Is this a current diagnosis for this admission?: Yes Plan: Biopsy report not yet available (3) MRSA pneumonia Qualifiers: Laterality: unspecified laterality Lung location: unspecified part of lung Qualified Code(s): J15.212 - Pneumonia due to Methicillin resistant Staphylococcus aureus Is this a current diagnosis for this admission?: Yes Plan: No evidence to substantiate at this time
--- NOTE | 2017-04-10 18:46 | PDOC PROGRESS REPORT ---
Subjective Progress Note for:: 04/10/17 Subjective:: She met with the radiation oncologist yesterday the plan is for the patient to obtain radiation, a total of thirty treatment. The pathology of the biopsy is not available., The [facility], she will follow with outpatient radiation oncologist Reason For Visit: ACUTE HYPERCAPNIC RESPIRATORY FAILURE,COPD,HTN Physical Exam Vital Signs: Temp Pulse Resp BP Pulse Ox 97.6 F 88 17 92/52 L 98 04/10/17 15:03 04/10/17 15:36 04/10/17 15:36 04/10/17 15:03 04/10/17 15:03 Intake & Output 04/09/17 04/10/17 04/11/17 06:59 06:59 06:59 Intake Total 2603 2668 1250 Output Total 2600 2050 700 Balance 3 618 550 Weight 79.3 kg 79.4 kg General appearance: PRESENT: no acute distress Eye exam: PRESENT: PERRLA Respiratory exam: PRESENT: clear to auscultation ghulam Cardiovascular exam: PRESENT: +S1, +S2 GI/Abdominal exam: PRESENT: soft Neurological exam: PRESENT: alert Results Laboratory Results: 04/09/17 18:00 04/09/17 04:18 Impressions: Chest CT 03/28/17 00:00 IMPRESSION: 1. Significant increase in size of pleural-based left lower lobe lung mass now measuring 6.2 cm. This is concerning malignancy. This lesion would be amenable to percutaneous biopsy. 2. Central lobular emphysematous changes. 3. Coronary artery atherosclerosis. This exam was performed according to our departmental dose-optimization program, which includes automated exposure control, adjustment of the mA and/or kV according to patient size and/or use of iterative reconstruction technique. Abdomen/Pelvis CT 04/05/17 00:00 IMPRESSION: No evidence of metastatic disease. Body Scan Nuclear Medicine 04/08/17 00:00 IMPRESSION: AREAS OF ACTIVITY IN THE SPINE WHICH CORRESPOND WITH NUMEROUS WEDGE COMPRESSION DEFORMITIES. NO UNUSUAL ACTIVITY IN THE REMAINDER OF THE SKELETON. Chest X-Ray 04/08/17 00:00 IMPRESSION: STABLE APPEARANCE OF THE CHEST STATUS POST LUNG BIOPSY. NO PNEUMOTHORAX IDENTIFIED. Lung Biopsy CT 04/08/17 08:00 IMPRESSION: CT GUIDED BIOPSY OF THE LEFT LUNG MASS PERFORMED WITHOUT IMMEDIATE COMPLICATION. PATHOLOGY PENDING. Assessment & Plan - Diagnosis (1) Acute hypercapnic respiratory failure Is this a current diagnosis for this admission?: Yes (2) Very severe chronic obstructive pulmonary disease Is this a current diagnosis for this admission?: Yes (3) HTN (hypertension) Qualifiers: Hypertension type: essential hypertension Qualified Code(s): I10 - Essential (primary) hypertension Is this a current diagnosis for this admission?: Yes (4) Malignant neoplasm of lower lobe, left bronchus or lung Is this a current diagnosis for this admission?: Yes (5) Sepsis, polymicrobial Is this a current diagnosis for this admission?: Yes
[2017-04-10] MEDS: MIRTAZAPINE 15 MG TABLET PO SCH (22:23)
[2017-04-10] MEDS: CETIRIZINE 5 MG TABLET PO SCH (22:24)
[2017-04-10] MEDS: ATORVASTATIN CALCIUM 10 MG TABLET PO SCH (22:24)
[2017-04-11] MEDS: IPRATROPIUM/ALBUTEROL 0.5-2.5 MG/3 ML AMPUL NEB SCH ×6 (00:17→19:27)
[2017-04-11] MEDS: PREGABALIN 75 MG CAPSULE PO SCH ×3 (05:40→22:43)
[2017-04-11] MEDS: BUSPIRONE HCL 10 MG TABLET PO SCH ×3 (05:40→22:45)
[2017-04-11] MEDS: LANSOPRAZOLE 30 MG TAB.RAP.DR PO SCH (05:40)
[2017-04-11] MEDS: CEFEPIME HCL 2 GM in DEXTROSE 5%-WATER 50 ML IV SCH ×2 (05:41→17:09)
[2017-04-11] MEDS: OXYCODONE-ACETAMINOPHEN 5-325 MG TABLET PO PRN (08:19)
[2017-04-11] MEDS: LOSARTAN POTASSIUM 50 MG TABLET PO SCH (09:40)
[2017-04-11] MEDS: TIOTROPIUM BROMIDE DPI 5 CAP/KIT (18 MCG/CAP) IH SCH (09:40)
[2017-04-11] MEDS: BUDESONIDE/FORMOTEROL 160-4.5 MCG 60 PUFF/6 GM MDI IH SCH ×2 (09:40→22:51)
[2017-04-11] MEDS: PREDNISONE 5 MG TABLET PO SCH (09:41)
[2017-04-11] MEDS: SULFAMETHOXAZOLE/TRIMETHOPRIM 800-160 MG TABLET PO SCH (09:41)
[2017-04-11] MEDS: METHOCARBAMOL 500 MG TABLET PO SCH ×2 (09:41→22:43)
[2017-04-11] MEDS: AMLODIPINE BESYLATE 5 MG TABLET PO SCH (09:41)
[2017-04-11] MEDS: CITALOPRAM HYDROBROMIDE 20 MG TABLET PO SCH (09:42)
[2017-04-11] MEDS: CLONIDINE HCL 0.1 MG TABLET PO SCH ×2 (09:42→22:44)
[2017-04-11] MEDS: ENOXAPARIN SODIUM INJ 40 MG/0.4 ML DISP.SYRIN SUBCUT SCH (09:42)
[2017-04-11] MEDS: FERROUS SULFATE 325 MG TABLET PO SCH (11:09)
[2017-04-11] MEDS: MULTIVITAMIN TABLET PO SCH (11:09)
--- NOTE | 2017-04-11 12:22 | PDOC PROGRESS REPORT ---
Subjective Progress Note for:: 04/11/17 Subjective:: awake interactive and appropriate;Complains of rash underneath breast Reason For Visit: ACUTE HYPERCAPNIC RESPIRATORY FAILURE,COPD,HTN Physical Exam Vital Signs: Temp Pulse Resp BP Pulse Ox 97.7 F 71 14 99/43 L 96 04/11/17 11:08 04/11/17 12:09 04/11/17 12:09 04/11/17 11:08 04/11/17 12:09 Intake & Output 04/10/17 04/11/17 04/12/17 06:59 06:59 06:59 Intake Total 2668 2731 Output Total 20495 Balance 618 656 Weight 79.4 kg 77.5 kg General appearance: PRESENT: no acute distress, cooperative, disheveled. ABSENT : mild distress, morbidly obese, obese, severe distress Head exam: PRESENT: atraumatic, normocephalic Eye exam: PRESENT: conjunctiva pale, EOMI. ABSENT: conjunctival injection, conjunctiva pink, nystagmus, periorbital swelling, scleral icterus Mouth exam: PRESENT: dry mucosa, neck supple, tongue midline. ABSENT: laceration, moist Neck exam: ABSENT: carotid bruit, JVD, lymphadenopathy, thyromegaly, tracheal deviation, tracheostomy Respiratory exam: PRESENT: decreased breath sounds, prolonged expiratory phas, rales, rhonchi, symmetrical, unlabored, wheezes. ABSENT: accessory muscle use, chest wall tenderness, clear to auscultation ghulam, crackles, retraction, stridor , tachypnea Cardiovascular exam: PRESENT: RRR, +S1, +S2 Pulses: PRESENT: normal radial pulses GI/Abdominal exam: PRESENT: normal bowel sounds, soft. ABSENT: distended, guarding, mass, organolmegaly, rebound, tenderness Extremities exam: ABSENT: clubbing, joint swelling Musculoskeletal exam: ABSENT: deformity, dislocation Neurological exam: PRESENT: alert, awake Psychiatric exam: PRESENT: normal mood Skin exam: PRESENT: dry, warm Results Laboratory Results: 04/09/17 18:00 04/09/17 04:18 Impressions: Chest CT 03/28/17 00:00 IMPRESSION: 1. Significant increase in size of pleural-based left lower lobe lung mass now measuring 6.2 cm. This is concerning malignancy. This lesion would be amenable to percutaneous biopsy. 2. Central lobular emphysematous changes. 3. Coronary artery atherosclerosis. This exam was performed according to our departmental dose-optimization program, which includes automated exposure control, adjustment of the mA and/or kV according to patient size and/or use of iterative reconstruction technique. Abdomen/Pelvis CT 04/05/17 00:00 IMPRESSION: No evidence of metastatic disease. Body Scan Nuclear Medicine 04/08/17 00:00 IMPRESSION: AREAS OF ACTIVITY IN THE SPINE WHICH CORRESPOND WITH NUMEROUS WEDGE COMPRESSION DEFORMITIES. NO UNUSUAL ACTIVITY IN THE REMAINDER OF THE SKELETON. Chest X-Ray 04/08/17 00:00 IMPRESSION: STABLE APPEARANCE OF THE CHEST STATUS POST LUNG BIOPSY. NO PNEUMOTHORAX IDENTIFIED. Lung Biopsy CT 04/08/17 08:00 IMPRESSION: CT GUIDED BIOPSY OF THE LEFT LUNG MASS PERFORMED WITHOUT IMMEDIATE COMPLICATION. PATHOLOGY PENDING. Assessment & Plan - Diagnosis (1) Acute hypercapnic respiratory failure Is this a current diagnosis for this admission?: Yes Plan: Continue on NIPPV (2) Lung cancer Qualifiers: Lung location: unspecified part of lung Is this a current diagnosis for this admission?: Yes Plan: Biopsy report not yet available (3) MRSA pneumonia Qualifiers: Laterality: unspecified laterality Lung location: unspecified part of lung Qualified Code(s): J15.212 - Pneumonia due to Methicillin resistant Staphylococcus aureus Is this a current diagnosis for this admission?: Yes Plan: No evidence to substantiate at this time
[2017-04-11] MEDS: MICONAZOLE NITRATE 2% CREAM 15GM TP SCH (17:10)
--- NOTE | 2017-04-11 20:21 | PDOC PROGRESS REPORT ---
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 She continues to require noninvasive positive pressure ventilation, BiPAP machine. She saw the radiation oncologist and radiation therapy was recommended I do not have a clear understanding how the radiation treatment will be arranged for this patient because she presently resides at the long term at [place], I am somewhat reluctant to discharge her back to long term because readmission is guaranteed for this patient, the long term would not be able to manage her effectively because she continues to require noninvasive positive pressure ventilation. She has consistently refused hospice as an option of care which is the appropriate option at this time of her disease. Reason For Visit: ACUTE HYPERCAPNIC RESPIRATORY FAILURE,COPD,HTN Physical Exam Vital Signs: Temp Pulse Resp BP Pulse Ox 97.7 F 70 16 134/59 H 96 04/11/17 15:14 04/11/17 19:28 04/11/17 19:28 04/11/17 15:14 04/11/17 19:28 Intake & Output 04/10/17 04/11/17 04/12/17 06:59 06:59 06:59 Intake Total 2668 2731 1050 Output Total 2050 5 1600 Balance 618 656 -550 Weight 79.4 kg 77.5 kg General appearance: PRESENT: mild distress Eye exam: PRESENT: PERRLA Respiratory exam: PRESENT: decreased breath sounds Cardiovascular exam: PRESENT: +S1, +S2 GI/Abdominal exam: PRESENT: soft Neurological exam: PRESENT: alert Results Laboratory Results: 04/09/17 18:00 04/09/17 04:18 Impressions: Chest CT 03/28/17 00:00 IMPRESSION: 1. Significant increase in size of pleural-based left lower lobe lung mass now measuring 6.2 cm. This is concerning malignancy. This lesion would be amenable to percutaneous biopsy. 2. Central lobular emphysematous changes. 3. Coronary artery atherosclerosis. This exam was performed according to our departmental dose-optimization program, which includes automated exposure control, adjustment of the mA and/or kV according to patient size and/or use of iterative reconstruction technique. Abdomen/Pelvis CT 04/05/17 00:00 IMPRESSION: No evidence of metastatic disease. Body Scan Nuclear Medicine 04/08/17 00:00 IMPRESSION: AREAS OF ACTIVITY IN THE SPINE WHICH CORRESPOND WITH NUMEROUS WEDGE COMPRESSION DEFORMITIES. NO UNUSUAL ACTIVITY IN THE REMAINDER OF THE SKELETON. Chest X-Ray 04/08/17 00:00 IMPRESSION: STABLE APPEARANCE OF THE CHEST STATUS POST LUNG BIOPSY. NO PNEUMOTHORAX IDENTIFIED. Lung Biopsy CT 04/08/17 08:00 IMPRESSION: CT GUIDED BIOPSY OF THE LEFT LUNG MASS PERFORMED WITHOUT IMMEDIATE COMPLICATION. PATHOLOGY PENDING. Assessment & Plan - Diagnosis (1) Acute hypercapnic respiratory failure Is this a current diagnosis for this admission?: Yes (2) Very severe chronic obstructive pulmonary disease Is this a current diagnosis for this admission?: Yes (3) HTN (hypertension) Qualifiers: Hypertension type: essential hypertension Qualified Code(s): I10 - Essential (primary) hypertension Is this a current diagnosis for this admission?: Yes (4) Malignant neoplasm of lower lobe, left bronchus or lung Is this a current diagnosis for this admission?: Yes (5) Sepsis, polymicrobial Is this a current diagnosis for this admission?: Yes (6) Squamous cell carcinoma of left lung Is this a current diagnosis for this admission?: Yes - Plan Summary Plan Summary: Overall prognosis is poor
[2017-04-11] MEDS: MIRTAZAPINE 15 MG TABLET PO SCH (22:43)
[2017-04-11] MEDS: ATORVASTATIN CALCIUM 10 MG TABLET PO SCH (22:44)
[2017-04-11] MEDS: CETIRIZINE 5 MG TABLET PO SCH (22:51)
[2017-04-12] MEDS: IPRATROPIUM/ALBUTEROL 0.5-2.5 MG/3 ML AMPUL NEB SCH ×6 (00:12→19:57)
[2017-04-12] MEDS: BUSPIRONE HCL 10 MG TABLET PO SCH ×3 (04:54→21:11)
[2017-04-12] MEDS: LANSOPRAZOLE 30 MG TAB.RAP.DR PO SCH (04:55)
[2017-04-12] MEDS: PREGABALIN 75 MG CAPSULE PO SCH ×3 (04:55→21:09)
[2017-04-12] MEDS: CEFEPIME HCL 2 GM in DEXTROSE 5%-WATER 50 ML IV SCH ×2 (05:02→17:46)
[2017-04-12] MEDS: LOSARTAN POTASSIUM 50 MG TABLET PO SCH (09:26)
[2017-04-12] MEDS: METHOCARBAMOL 500 MG TABLET PO SCH ×2 (09:27→21:12)
[2017-04-12] MEDS: AMLODIPINE BESYLATE 5 MG TABLET PO SCH (09:27)
[2017-04-12] MEDS: PREDNISONE 5 MG TABLET PO SCH (09:27)
[2017-04-12] MEDS: CLONIDINE HCL 0.1 MG TABLET PO SCH ×2 (09:27→21:11)
[2017-04-12] MEDS: ENOXAPARIN SODIUM INJ 40 MG/0.4 ML DISP.SYRIN SUBCUT SCH (09:27)
[2017-04-12] MEDS: CITALOPRAM HYDROBROMIDE 20 MG TABLET PO SCH (09:27)
[2017-04-12] MEDS: MICONAZOLE NITRATE 2% CREAM 15GM TP SCH ×2 (09:28→17:47)
[2017-04-12] MEDS: TIOTROPIUM BROMIDE DPI 5 CAP/KIT (18 MCG/CAP) IH SCH (09:28)
[2017-04-12] MEDS: BUDESONIDE/FORMOTEROL 160-4.5 MCG 60 PUFF/6 GM MDI IH SCH ×2 (09:28→21:26)
[2017-04-12] MEDS: OXYCODONE HCL IR 5 MG TABLET PO PRN ×2 (13:45→19:49)
[2017-04-12] MEDS: OXYCODONE-ACETAMINOPHEN 5-325 MG TABLET PO PRN ×2 (13:45→22:23)
[2017-04-12] MEDS: FERROUS SULFATE 325 MG TABLET PO SCH (13:45)
[2017-04-12] MEDS: MULTIVITAMIN TABLET PO SCH (13:46)
--- NOTE | 2017-04-12 17:16 | PDOC PROGRESS REPORT ---
Subjective Progress Note for:: 04/12/17 Subjective:: Patient reported intermittent episode of muscle twitching, particularly in upper extremities and resulted in dropping objects. She denied any chest pain. No nausea, vomiting, or abdominal pain. No fever or chills. Reason For Visit: ACUTE HYPERCAPNIC RESPIRATORY FAILURE,COPD,HTN Physical Exam Vital Signs: Temp Pulse Resp BP Pulse Ox 98.5 F 80 14 126/96 H 94 04/12/17 10:57 04/12/17 15:55 04/12/17 15:55 04/12/17 10:57 04/12/17 15:55 Intake & Output 04/11/17 04/12/17 04/13/17 06:59 06:59 06:59 Intake Total 2731 1266 150 Output Total 1180 2400 800 Balance 207 -2721 -025 Weight 77.5 kg 75.5 kg General appearance: PRESENT: obese Head exam: PRESENT: atraumatic, normocephalic Respiratory exam: PRESENT: decreased breath sounds Cardiovascular exam: PRESENT: RRR. ABSENT: diastolic murmur, rubs, systolic murmur Vascular exam: PRESENT: normal capillary refill. ABSENT: pallor GI/Abdominal exam: PRESENT: normal bowel sounds, soft. ABSENT: distended, guarding, mass, organolmegaly, rebound, tenderness Extremities exam: ABSENT: pedal edema Musculoskeletal exam: PRESENT: normal inspection Neurological exam: PRESENT: alert, awake, oriented to person, oriented to place , oriented to time, oriented to situation, CN II-XII grossly intact. ABSENT: motor sensory deficit Psychiatric exam: PRESENT: appropriate affect, normal mood. ABSENT: homicidal ideation, suicidal ideation Skin exam: PRESENT: dry, intact, warm. ABSENT: cyanosis, rash Results Laboratory Results: 04/09/17 18:00 04/09/17 04:18 Impressions: Chest CT 03/28/17 00:00 IMPRESSION: 1. Significant increase in size of pleural-based left lower lobe lung mass now measuring 6.2 cm. This is concerning malignancy. This lesion would be amenable to percutaneous biopsy. 2. Central lobular emphysematous changes. 3. Coronary artery atherosclerosis. This exam was performed according to our departmental dose-optimization program, which includes automated exposure control, adjustment of the mA and/or kV according to patient size and/or use of iterative reconstruction technique. Abdomen/Pelvis CT 04/05/17 00:00 IMPRESSION: No evidence of metastatic disease. Body Scan Nuclear Medicine 04/08/17 00:00 IMPRESSION: AREAS OF ACTIVITY IN THE SPINE WHICH CORRESPOND WITH NUMEROUS WEDGE COMPRESSION DEFORMITIES. NO UNUSUAL ACTIVITY IN THE REMAINDER OF THE SKELETON. Chest X-Ray 04/08/17 00:00 IMPRESSION: STABLE APPEARANCE OF THE CHEST STATUS POST LUNG BIOPSY. NO PNEUMOTHORAX IDENTIFIED. Lung Biopsy CT 04/08/17 08:00 IMPRESSION: CT GUIDED BIOPSY OF THE LEFT LUNG MASS PERFORMED WITHOUT IMMEDIATE COMPLICATION. PATHOLOGY PENDING. Assessment & Plan - Diagnosis (1) Malignant neoplasm of lower lobe, left bronchus or lung Is this a current diagnosis for this admission?: Yes Plan: See covering attending physician orders. (2) Chronic hypercapnic respiratory failure Is this a current diagnosis for this admission?: Yes Plan: See covering attending physician orders. Possible cause of her reported muscle twitching. I did encourage patient to use BiPAP machine as prescribed. (3) COPD (chronic obstructive pulmonary disease) Qualifiers: Chronic bronchitis type: unspecified Is this a current diagnosis for this admission?: Yes Plan: See covering attending physician orders. - Time Time Spent with patient: 25-34 minutes Medications reviewed and adjusted accordingly: Yes Anticipated discharge: SNF - Inpatient Certification Based on my medical assessment, after consideration of the patient's comorbidities, presenting symptoms, or acuity I expect that the services needed warrant INPATIENT care.: Yes I certify that my determination is in accordance with my understanding of Medicare's requirements for reasonable and necessary INPATIENT services [42 CFR 412.3e].: Yes Medical Necessity: Need Close Monitoring Due to Risk of Patient Decompensation, Need For IV Fluids, Need For Continuous Telemetry Monitoring, Need for IV Antibiotics, Risk of Complication if Not Cared For in Hospital Post Hospital Care: D/C or Transfer Summary - Plan Summary Plan Summary: See covering attending physician orders.
[2017-04-12] MEDS: MIRTAZAPINE 15 MG TABLET PO SCH (21:09)
[2017-04-12] MEDS: ATORVASTATIN CALCIUM 10 MG TABLET PO SCH (21:14)
[2017-04-12] MEDS: CETIRIZINE 5 MG TABLET PO SCH (21:26)
[2017-04-13] MEDS: IPRATROPIUM/ALBUTEROL 0.5-2.5 MG/3 ML AMPUL NEB SCH ×6 (00:20→19:39)
[2017-04-13] MEDS: CEFEPIME HCL 2 GM in DEXTROSE 5%-WATER 50 ML IV SCH ×2 (05:32→18:03)
[2017-04-13] MEDS: PREGABALIN 75 MG CAPSULE PO SCH ×3 (05:33→21:40)
[2017-04-13] MEDS: LANSOPRAZOLE 30 MG TAB.RAP.DR PO SCH (05:33)
[2017-04-13] MEDS: BUSPIRONE HCL 10 MG TABLET PO SCH ×3 (05:33→21:40)
[2017-04-13] MEDS: OXYCODONE-ACETAMINOPHEN 5-325 MG TABLET PO PRN ×3 (08:48→21:40)
[2017-04-13] MEDS: OXYCODONE HCL IR 5 MG TABLET PO PRN ×3 (08:48→21:40)
[2017-04-13] MEDS: METHOCARBAMOL 500 MG TABLET PO SCH ×2 (10:24→21:40)
[2017-04-13] MEDS: ENOXAPARIN SODIUM INJ 40 MG/0.4 ML DISP.SYRIN SUBCUT SCH (10:24)
[2017-04-13] MEDS: CITALOPRAM HYDROBROMIDE 20 MG TABLET PO SCH (10:24)
[2017-04-13] MEDS: PREDNISONE 5 MG TABLET PO SCH (10:24)
[2017-04-13] MEDS: CLONIDINE HCL 0.1 MG TABLET PO SCH (10:24)
[2017-04-13] MEDS: MICONAZOLE NITRATE 2% CREAM 15GM TP SCH ×2 (10:24→18:04)
[2017-04-13] MEDS: BUDESONIDE/FORMOTEROL 160-4.5 MCG 60 PUFF/6 GM MDI IH SCH ×2 (10:24→21:40)
[2017-04-13] MEDS: AMLODIPINE BESYLATE 5 MG TABLET PO SCH (10:24)
[2017-04-13] MEDS: LOSARTAN POTASSIUM 50 MG TABLET PO SCH (10:24)
[2017-04-13] MEDS: TIOTROPIUM BROMIDE DPI 5 CAP/KIT (18 MCG/CAP) IH SCH (10:25)
[2017-04-13] MEDS: MULTIVITAMIN TABLET PO SCH (14:20)
[2017-04-13] MEDS: FERROUS SULFATE 325 MG TABLET PO SCH (14:21)
[2017-04-13] MEDS: ATORVASTATIN CALCIUM 10 MG TABLET PO SCH (21:40)
[2017-04-13] MEDS: MIRTAZAPINE 15 MG TABLET PO SCH (21:40)
[2017-04-14] MEDS: IPRATROPIUM/ALBUTEROL 0.5-2.5 MG/3 ML AMPUL NEB SCH ×6 (00:25→20:09)
[2017-04-14] MEDS: CETIRIZINE 5 MG TABLET PO SCH ×2 (03:02→21:55)
[2017-04-14] MEDS: CLONIDINE HCL 0.1 MG TABLET PO SCH ×3 (03:02→21:55)
[2017-04-14] MEDS: PREGABALIN 75 MG CAPSULE PO SCH ×3 (05:51→21:55)
[2017-04-14] MEDS: CEFEPIME HCL 2 GM in DEXTROSE 5%-WATER 50 ML IV SCH ×2 (05:51→17:18)
[2017-04-14] MEDS: BUSPIRONE HCL 10 MG TABLET PO SCH ×3 (05:51→21:55)
[2017-04-14] MEDS: LANSOPRAZOLE 30 MG TAB.RAP.DR PO SCH (05:52)
[2017-04-14] MEDS: OXYCODONE-ACETAMINOPHEN 5-325 MG TABLET PO PRN (08:43)
[2017-04-14] MEDS: LOSARTAN POTASSIUM 50 MG TABLET PO SCH (09:43)
[2017-04-14] MEDS: PREDNISONE 5 MG TABLET PO SCH (09:44)
[2017-04-14] MEDS: TIOTROPIUM BROMIDE DPI 5 CAP/KIT (18 MCG/CAP) IH SCH (09:44)
[2017-04-14] MEDS: BUDESONIDE/FORMOTEROL 160-4.5 MCG 60 PUFF/6 GM MDI IH SCH ×2 (09:44→21:55)
[2017-04-14] MEDS: AMLODIPINE BESYLATE 5 MG TABLET PO SCH (09:44)
[2017-04-14] MEDS: METHOCARBAMOL 500 MG TABLET PO SCH ×2 (09:44→21:55)
[2017-04-14] MEDS: CITALOPRAM HYDROBROMIDE 20 MG TABLET PO SCH (09:44)
[2017-04-14] MEDS: MICONAZOLE NITRATE 2% CREAM 15GM TP SCH ×2 (09:45→17:18)
[2017-04-14] MEDS: ENOXAPARIN SODIUM INJ 40 MG/0.4 ML DISP.SYRIN SUBCUT SCH (09:46)
[2017-04-14] MEDS: MULTIVITAMIN TABLET PO SCH (12:07)
[2017-04-14] MEDS: FERROUS SULFATE 325 MG TABLET PO SCH (12:07)
--- NOTE | 2017-04-14 17:55 | PDOC PROGRESS REPORT ---
Subjective Progress Note for:: 04/13/17 Subjective:: Patient had episode of anxiety last night and requested for removal of her DNR status and band by nursing staff. I had extensive discussion with her during this visit regarding resuscitation issue. She want to remain a DNR status with adequate treatment of her anxiety attacks. No chest pain. No nausea, vomiting, or abdominal pain. Reason For Visit: ACUTE HYPERCAPNIC RESPIRATORY FAILURE,COPD,HTN Physical Exam Vital Signs: Temp Pulse Resp BP Pulse Ox 97.7 F 69 16 114/99 H 94 04/13/17 11:15 04/13/17 12:00 04/13/17 12:00 04/13/17 11:15 04/13/17 12:00 Intake & Output 04/12/17 04/13/17 04/14/17 06:59 06:59 06:59 Intake Total 1266 695 239 Output Total 2400 1875 300 Balance -1134 -1180 -61 Weight 75.5 kg 73.8 kg General appearance: PRESENT: mild distress - remain on supplemental oxygen via nasal cannula. Head exam: PRESENT: atraumatic, normocephalic Eye exam: PRESENT: conjunctiva pink, EOMI, PERRLA. ABSENT: scleral icterus Mouth exam: PRESENT: moist Respiratory exam: PRESENT: decreased breath sounds, rhonchi - minimally end expiratory phase Cardiovascular exam: PRESENT: RRR. ABSENT: diastolic murmur, rubs, systolic murmur Vascular exam: PRESENT: normal capillary refill. ABSENT: pallor GI/Abdominal exam: PRESENT: normal bowel sounds, soft. ABSENT: distended, guarding, mass, organolmegaly, rebound, tenderness Extremities exam: ABSENT: pedal edema Musculoskeletal exam: PRESENT: normal inspection Neurological exam: PRESENT: alert, awake, oriented to person, oriented to place , oriented to time, oriented to situation, CN II-XII grossly intact. ABSENT: motor sensory deficit Psychiatric exam: PRESENT: appropriate affect, normal mood. ABSENT: homicidal ideation, suicidal ideation Skin exam: PRESENT: dry, intact, warm. ABSENT: cyanosis, rash Results Laboratory Results: 04/09/17 18:00 04/09/17 04:18 Impressions: Chest CT 03/28/17 00:00 IMPRESSION: 1. Significant increase in size of pleural-based left lower lobe lung mass now measuring 6.2 cm. This is concerning malignancy. This lesion would be amenable to percutaneous biopsy. 2. Central lobular emphysematous changes. 3. Coronary artery atherosclerosis. This exam was performed according to our departmental dose-optimization program, which includes automated exposure control, adjustment of the mA and/or kV according to patient size and/or use of iterative reconstruction technique. Abdomen/Pelvis CT 04/05/17 00:00 IMPRESSION: No evidence of metastatic disease. Body Scan Nuclear Medicine 04/08/17 00:00 IMPRESSION: AREAS OF ACTIVITY IN THE SPINE WHICH CORRESPOND WITH NUMEROUS WEDGE COMPRESSION DEFORMITIES. NO UNUSUAL ACTIVITY IN THE REMAINDER OF THE SKELETON. Chest X-Ray 04/08/17 00:00 IMPRESSION: STABLE APPEARANCE OF THE CHEST STATUS POST LUNG BIOPSY. NO PNEUMOTHORAX IDENTIFIED. Lung Biopsy CT 04/08/17 08:00 IMPRESSION: CT GUIDED BIOPSY OF THE LEFT LUNG MASS PERFORMED WITHOUT IMMEDIATE COMPLICATION. PATHOLOGY PENDING. Assessment & Plan - Diagnosis (1) Pneumonia due to Gram-negative bacteria Is this a current diagnosis for this admission?: Yes Plan: Continue IV Cefepime coverage. (2) Chronic hypercapnic respiratory failure Is this a current diagnosis for this admission?: Yes (3) COPD (chronic obstructive pulmonary disease) Qualifiers: Chronic bronchitis type: unspecified Is this a current diagnosis for this admission?: Yes (4) Malignant neoplasm of lower lobe, left bronchus or lung Is this a current diagnosis for this admission?: Yes Plan: See covering attending physician orders. (5) Generalized anxiety disorder Is this a current diagnosis for this admission?: Yes Plan: Increase Buspirone dosage to 7.5mg po q 8 hours. Maintain Celexa at 20 mg po daily. - Time Time Spent with patient: 35 or more minutes Medications reviewed and adjusted accordingly: Yes Anticipated discharge: SNF Within: Other - Inpatient Certification Based on my medical assessment, after consideration of the patient's comorbidities, presenting symptoms, or acuity I expect that the services needed warrant INPATIENT care.: Yes I certify that my determination is in accordance with my understanding of Medicare's requirements for reasonable and necessary INPATIENT services [42 CFR 412.3e].: Yes Medical Necessity: Need Close Monitoring Due to Risk of Patient Decompensation, Need For IV Fluids, Need For Continuous Telemetry Monitoring, Need for Nebulizer Therapy and Monitoring of Response, Need for IV Antibiotics, Risk of Complication if Not Cared For in Hospital Post Hospital Care: D/C or Transfer Summary - Plan Summary Plan Summary: See covering attending physician orders.
[2017-04-14] MEDS ORDERED: BISACODYL 10 MG SUPP.RECT PR ONE (17:59)
--- NOTE | 2017-04-14 17:59 | PDOC PROGRESS REPORT ---
Subjective Progress Note for:: 04/14/17 Subjective:: Very concern about constipation today. Related poor po intake to same. No nausea , vomiting or abdominal pain. No chest pain. Breathing remain at baseline. No fever or chills. Reason For Visit: ACUTE HYPERCAPNIC RESPIRATORY FAILURE,COPD,HTN Physical Exam Vital Signs: Temp Pulse Resp BP Pulse Ox 97.6 F 92 20 95/61 L 97 04/14/17 14:55 04/14/17 14:55 04/14/17 14:55 04/14/17 14:55 04/14/17 14:55 Intake & Output 04/13/17 04/14/17 04/15/17 06:59 06:59 06:59 Intake Total 695 1036 Output Total 1875 1200 Balance -1180 -164 Weight 73.8 kg 76.4 kg Physical Exam: General appearance: PRESENT: mild distress - remain on supplemental oxygen via nasal cannula. Head exam: PRESENT: atraumatic, normocephalic Eye exam: PRESENT: conjunctiva pink, EOMI, PERRLA. ABSENT: scleral icterus Mouth exam: PRESENT: moist Respiratory exam: PRESENT: decreased breath sounds Cardiovascular exam: PRESENT: RRR. ABSENT: diastolic murmur, rubs, systolic murmur Vascular exam: PRESENT: normal capillary refill. ABSENT: pallor GI/Abdominal exam: PRESENT: normal bowel sounds, soft. ABSENT: distended, guarding, mass, organomegaly, rebound, tenderness Extremities exam: ABSENT: pedal edema Musculoskeletal exam: PRESENT: normal inspection Neurological exam: PRESENT: alert, awake, oriented to person, oriented to place , oriented to time, oriented to situation, CN II-XII grossly intact. ABSENT: motor sensory deficit Psychiatric exam: PRESENT: appropriate affect, normal mood. ABSENT: homicidal ideation, suicidal ideation Skin exam: PRESENT: dry, intact, warm. ABSENT: cyanosis, rash Results Laboratory Results: 04/09/17 18:00 04/09/17 04:18 Impressions: Chest CT 03/28/17 00:00 IMPRESSION: 1. Significant increase in size of pleural-based left lower lobe lung mass now measuring 6.2 cm. This is concerning malignancy. This lesion would be amenable to percutaneous biopsy. 2. Central lobular emphysematous changes. 3. Coronary artery atherosclerosis. This exam was performed according to our departmental dose-optimization program, which includes automated exposure control, adjustment of the mA and/or kV according to patient size and/or use of iterative reconstruction technique. Abdomen/Pelvis CT 04/05/17 00:00 IMPRESSION: No evidence of metastatic disease. Body Scan Nuclear Medicine 04/08/17 00:00 IMPRESSION: AREAS OF ACTIVITY IN THE SPINE WHICH CORRESPOND WITH NUMEROUS WEDGE COMPRESSION DEFORMITIES. NO UNUSUAL ACTIVITY IN THE REMAINDER OF THE SKELETON. Chest X-Ray 04/08/17 00:00 IMPRESSION: STABLE APPEARANCE OF THE CHEST STATUS POST LUNG BIOPSY. NO PNEUMOTHORAX IDENTIFIED. Lung Biopsy CT 04/08/17 08:00 IMPRESSION: CT GUIDED BIOPSY OF THE LEFT LUNG MASS PERFORMED WITHOUT IMMEDIATE COMPLICATION. PATHOLOGY PENDING. Assessment & Plan - Diagnosis (1) Pneumonia due to Gram-negative bacteria Is this a current diagnosis for this admission?: Yes (2) Chronic hypercapnic respiratory failure Is this a current diagnosis for this admission?: Yes (3) COPD (chronic obstructive pulmonary disease) Qualifiers: Chronic bronchitis type: unspecified Is this a current diagnosis for this admission?: Yes (4) Malignant neoplasm of lower lobe, left bronchus or lung Is this a current diagnosis for this admission?: Yes (5) Generalized anxiety disorder Is this a current diagnosis for this admission?: Yes (6) Constipation due to opioid therapy Is this a current diagnosis for this admission?: Yes Plan: See covering attending physician orders. - Time Time Spent with patient: 25-34 minutes Medications reviewed and adjusted accordingly: Yes Anticipated discharge: SNF Within: Other - Inpatient Certification Based on my medical assessment, after consideration of the patient's comorbidities, presenting symptoms, or acuity I expect that the services needed warrant INPATIENT care.: Yes I certify that my determination is in accordance with my understanding of Medicare's requirements for reasonable and necessary INPATIENT services [42 CFR 412.3e].: Yes Medical Necessity: Need Close Monitoring Due to Risk of Patient Decompensation, Need For IV Fluids, Need For Continuous Telemetry Monitoring, Need for Nebulizer Therapy and Monitoring of Response, Need for Pain Control, Need for IV Antibiotics, Risk of Complication if Not Cared For in Hospital 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
[2017-04-14] MEDS: DOCUSATE SODIUM 100 MG CAPSULE PO SCH (18:24)
[2017-04-14] MEDS: OXYCODONE HCL IR 5 MG TABLET PO PRN (19:40)
[2017-04-14] MEDS: ATORVASTATIN CALCIUM 10 MG TABLET PO SCH (21:55)
[2017-04-14] MEDS: MIRTAZAPINE 15 MG TABLET PO SCH (21:55)
[2017-04-15] MEDS: IPRATROPIUM/ALBUTEROL 0.5-2.5 MG/3 ML AMPUL NEB SCH ×6 (00:08→20:03)
[2017-04-15 06:10] LABS: ABSOLUTE BASOPHILS # (AUTO) 0.1 10^3/uL (0.0-0.2); ABSOLUTE EOSINOPHILS # (AUTO) 0.3 10^3/uL (0.0-0.6); ABSOLUTE LYMPHOCYTES (AUTO) 2.5 10^3/uL (0.5-4.7); ABSOLUTE MONOCYTES (AUTO) 1.4 10^3/uL (0.1-1.4); BASOPHILS % (AUTO) 0.9 % (0-2); EOSINOPHILS % (AUTO) 2.6 % (0-6); HEMATOCRIT 31.2 % (36.0-47.0); HEMOGLOBIN 9.9 g/dL (12.0-15.5); LYMPHOCYTES % (AUTO) 20.5 % (13-45); MEAN CORPUSCULAR HEMOGLOBIN 27.6 pg (27.0-33.4); MEAN CORPUSCULAR HGB CONC 31.6 g/dL (32.0-36.0); MEAN CORPUSCULAR VOLUME 87 fl (80-97); MONOCYTES % (AUTO) 11.2 % (3-13); PLATELET COUNT 361 10^3/uL (150-450); RED BLOOD COUNT 3.58 10^6/uL (3.72-5.28); RED CELL DISTRIBUTION WIDTH 17.1 % (11.5-14.0); SEGMENTED NEUTROPHILS % (AUTO) 64.8 % (42-78); TOTAL CELLS COUNTED % (AUTO) 100 %; WHITE BLOOD COUNT 12.4 10^3/uL (4.0-10.5)
[2017-04-15] MEDS: BUSPIRONE HCL 10 MG TABLET PO SCH ×3 (06:13→21:12)
[2017-04-15] MEDS: PREGABALIN 75 MG CAPSULE PO SCH ×3 (06:14→21:12)
[2017-04-15] MEDS: CEFEPIME HCL 2 GM in DEXTROSE 5%-WATER 50 ML IV SCH ×2 (06:14→18:52)
[2017-04-15] MEDS: LANSOPRAZOLE 30 MG TAB.RAP.DR PO SCH (06:14)
[2017-04-15 06:30] LABS: ANION GAP 11 (5-19); BLOOD UREA NITROGEN 16 mg/dL (7-20); CALCIUM 9.7 mg/dL (8.4-10.2); CARBON DIOXIDE 25 mmol/L (22-30); CHLORIDE 108 mmol/L (98-107); GLUCOSE 79 mg/dL (75-110); POTASSIUM 3.8 mmol/L (3.6-5.0); SODIUM 143.5 mmol/L (137-145)
[2017-04-15] MEDS: ENOXAPARIN SODIUM INJ 40 MG/0.4 ML DISP.SYRIN SUBCUT SCH (09:18)
[2017-04-15] MEDS: BUDESONIDE/FORMOTEROL 160-4.5 MCG 60 PUFF/6 GM MDI IH SCH ×2 (09:18→21:12)
[2017-04-15] MEDS: METHOCARBAMOL 500 MG TABLET PO SCH ×2 (09:19→21:12)
[2017-04-15] MEDS: TIOTROPIUM BROMIDE DPI 5 CAP/KIT (18 MCG/CAP) IH SCH (09:19)
[2017-04-15] MEDS: OXYCODONE-ACETAMINOPHEN 5-325 MG TABLET PO PRN (09:20)
[2017-04-15] MEDS: CITALOPRAM HYDROBROMIDE 20 MG TABLET PO SCH (09:20)
[2017-04-15] MEDS: LOSARTAN POTASSIUM 50 MG TABLET PO SCH (09:20)
[2017-04-15] MEDS: PREDNISONE 5 MG TABLET PO SCH (09:21)
[2017-04-15] MEDS: CLONIDINE HCL 0.1 MG TABLET PO SCH ×2 (09:21→21:07)
[2017-04-15] MEDS: AMLODIPINE BESYLATE 5 MG TABLET PO SCH (09:21)
[2017-04-15] MEDS: MICONAZOLE NITRATE 2% CREAM 15GM TP SCH ×2 (09:22→18:51)
--- NOTE | 2017-04-15 12:40 | PDOC PROGRESS REPORT ---
Subjective Progress Note for:: 04/15/17 Subjective:: Complains of some left-sided abdominal pain Reason For Visit: ACUTE HYPERCAPNIC RESPIRATORY FAILURE,COPD,HTN Physical Exam Vital Signs: Temp Pulse Resp BP Pulse Ox 98.7 F 86 20 101/79 96 04/15/17 08:02 04/15/17 11:34 04/15/17 11:34 04/15/17 08:02 04/15/17 11:34 Intake & Output 04/14/17 04/15/17 04/16/17 06:59 06:59 06:59 Intake Total 1036 1896 Output Total 1200 1700 Balance -164 196 Weight 76.4 kg 71.8 kg General appearance: PRESENT: no acute distress, cooperative, disheveled. ABSENT : hard of hearing, mild distress, morbidly obese, severe distress Head exam: PRESENT: atraumatic, normocephalic Eye exam: PRESENT: conjunctiva pale, EOMI. ABSENT: conjunctival injection, conjunctiva pink, nystagmus, periorbital swelling Mouth exam: PRESENT: dry mucosa, neck supple, tongue midline. ABSENT: laceration, moist Neck exam: ABSENT: carotid bruit, JVD, lymphadenopathy, thyromegaly, tracheal deviation, tracheostomy Respiratory exam: PRESENT: decreased breath sounds, prolonged expiratory phas, rales, rhonchi, symmetrical, unlabored. ABSENT: accessory muscle use, chest wall tenderness, clear to auscultation ghulam, crackles, retraction, stridor, tachypnea Cardiovascular exam: PRESENT: RRR, +S1, +S2 Pulses: PRESENT: normal radial pulses GI/Abdominal exam: PRESENT: normal bowel sounds, soft. ABSENT: distended, guarding, mass, organolmegaly, rebound, tenderness Extremities exam: ABSENT: clubbing, joint swelling Musculoskeletal exam: ABSENT: deformity, dislocation Neurological exam: PRESENT: alert, awake Skin exam: PRESENT: dry Results Laboratory Results: 04/15/17 05:55 04/15/17 05:55 04/15/17 04/15/17 05:55 05:55 WBC 12.4 H RBC 3.58 L Hgb 9.9 L Hct 31.2 L MCV 87 MCH 27.6 MCHC 31.6 L RDW 17.1 H Plt Count 361 Seg Neutrophils % 64.8 Lymphocytes % 20.5 Monocytes % 11.2 Eosinophils % 2.6 Basophils % 0.9 Absolute Neutrophils 8.0 Absolute Lymphocytes 2.5 Absolute Monocytes 1.4 Absolute Eosinophils 0.3 Absolute Basophils 0.1 Sodium 143.5 Potassium 3.8 Chloride 108 H Carbon Dioxide 25 Anion Gap 11 BUN 16 Creatinine 0.79 Est GFR ( Amer) > 60 Est GFR (Non-Af Amer) > 60 Glucose 79 Calcium 9.7 Impressions: Chest CT 03/28/17 00:00 IMPRESSION: 1. Significant increase in size of pleural-based left lower lobe lung mass now measuring 6.2 cm. This is concerning malignancy. This lesion would be amenable to percutaneous biopsy. 2. Central lobular emphysematous changes. 3. Coronary artery atherosclerosis. This exam was performed according to our departmental dose-optimization program, which includes automated exposure control, adjustment of the mA and/or kV according to patient size and/or use of iterative reconstruction technique. Abdomen/Pelvis CT 04/05/17 00:00 IMPRESSION: No evidence of metastatic disease. Body Scan Nuclear Medicine 04/08/17 00:00 IMPRESSION: AREAS OF ACTIVITY IN THE SPINE WHICH CORRESPOND WITH NUMEROUS WEDGE COMPRESSION DEFORMITIES. NO UNUSUAL ACTIVITY IN THE REMAINDER OF THE SKELETON. Chest X-Ray 04/08/17 00:00 IMPRESSION: STABLE APPEARANCE OF THE CHEST STATUS POST LUNG BIOPSY. NO PNEUMOTHORAX IDENTIFIED. Lung Biopsy CT 04/08/17 08:00 IMPRESSION: CT GUIDED BIOPSY OF THE LEFT LUNG MASS PERFORMED WITHOUT IMMEDIATE COMPLICATION. PATHOLOGY PENDING. Assessment & Plan - Diagnosis (1) Acute hypercapnic respiratory failure Is this a current diagnosis for this admission?: Yes (2) Lung cancer Qualifiers: Lung location: unspecified part of lung Is this a current diagnosis for this admission?: Yes Plan: biopsy poor diff sqamous cell (3) MRSA pneumonia Qualifiers: Laterality: unspecified laterality Lung location: unspecified part of lung Qualified Code(s): J15.212 - Pneumonia due to Methicillin resistant Staphylococcus aureus Is this a current diagnosis for this admission?: Yes Plan: No evidence to substantiate at this time Labs- All tests 24 hr 03/28/17 03/28/17 03/29/17 10:15 21:47 05:24 WBC 13.3 H 9.0 8.9 03/30/17 06:08 WBC 10.9 H 03/28/17 11:16 Gram Stain - Preliminary Sputum Sputum Culture - Preliminary Proteus Mirabilis Gram Positive Cocci Clusters Pseudomonas Aeruginosa Normal Caron Absent 03/28/17 11:16 Gram Stain - Final Sputum Sputum Culture - Final Proteus Mirabilis Staphylococcus Aureus Pseudomonas Aeruginosa Normal Caron Absent
[2017-04-15] MEDS: MULTIVITAMIN TABLET PO SCH (13:31)
[2017-04-15] MEDS: FERROUS SULFATE 325 MG TABLET PO SCH (13:31)
--- NOTE | 2017-04-15 13:31 | PDOC PROGRESS REPORT ---
Subjective Progress Note for:: 04/15/17 Subjective:: No chest pain. Breathing remain at baseline. No fever or chills. No nausea, vomiting or abdominal pain. s/p head CT scan earlier today in view of her lung cancer. Reason For Visit: ACUTE HYPERCAPNIC RESPIRATORY FAILURE,COPD,HTN Physical Exam Vital Signs: Temp Pulse Resp BP Pulse Ox 98.7 F 86 20 101/79 96 04/15/17 08:02 04/15/17 11:34 04/15/17 11:34 04/15/17 08:02 04/15/17 11:34 Intake & Output 04/14/17 04/15/17 04/16/17 06:59 06:59 06:59 Intake Total 1036 1896 Output Total 1200 1700 Balance -164 196 Weight 76.4 kg 71.8 kg Physical Exam: General appearance: PRESENT: remain on supplemental oxygen via nasal cannula for end stage COPD and respiratory failure. Head exam: PRESENT: atraumatic, normocephalic Eye exam: PRESENT: conjunctiva pink, EOMI, PERRLA. ABSENT: scleral icterus Mouth exam: PRESENT: moist Respiratory exam: PRESENT: decreased breath sounds Cardiovascular exam: PRESENT: RRR. ABSENT: diastolic murmur, rubs, systolic murmur Vascular exam: PRESENT: normal capillary refill. ABSENT: pallor GI/Abdominal exam: PRESENT: normal bowel sounds, soft. ABSENT: distended, guarding, mass, organomegaly, rebound, tenderness Extremities exam: ABSENT: pedal edema Musculoskeletal exam: PRESENT: normal inspection Neurological exam: PRESENT: alert, awake, oriented to person, oriented to place , oriented to time, oriented to situation, CN II-XII grossly intact. ABSENT: motor sensory deficit Psychiatric exam: PRESENT: appropriate affect, normal mood. ABSENT: homicidal ideation, suicidal ideation Skin exam: PRESENT: dry, intact, warm. ABSENT: cyanosis, rash Results Laboratory Results: 04/15/17 05:55 04/15/17 05:55 04/15/17 04/15/17 05:55 05:55 WBC 12.4 H RBC 3.58 L Hgb 9.9 L Hct 31.2 L MCV 87 MCH 27.6 MCHC 31.6 L RDW 17.1 H Plt Count 361 Seg Neutrophils % 64.8 Lymphocytes % 20.5 Monocytes % 11.2 Eosinophils % 2.6 Basophils % 0.9 Absolute Neutrophils 8.0 Absolute Lymphocytes 2.5 Absolute Monocytes 1.4 Absolute Eosinophils 0.3 Absolute Basophils 0.1 Sodium 143.5 Potassium 3.8 Chloride 108 H Carbon Dioxide 25 Anion Gap 11 BUN 16 Creatinine 0.79 Est GFR ( Amer) > 60 Est GFR (Non-Af Amer) > 60 Glucose 79 Calcium 9.7 Impressions: Chest CT 03/28/17 00:00 IMPRESSION: 1. Significant increase in size of pleural-based left lower lobe lung mass now measuring 6.2 cm. This is concerning malignancy. This lesion would be amenable to percutaneous biopsy. 2. Central lobular emphysematous changes. 3. Coronary artery atherosclerosis. This exam was performed according to our departmental dose-optimization program, which includes automated exposure control, adjustment of the mA and/or kV according to patient size and/or use of iterative reconstruction technique. Abdomen/Pelvis CT 04/05/17 00:00 IMPRESSION: No evidence of metastatic disease. Body Scan Nuclear Medicine 04/08/17 00:00 IMPRESSION: AREAS OF ACTIVITY IN THE SPINE WHICH CORRESPOND WITH NUMEROUS WEDGE COMPRESSION DEFORMITIES. NO UNUSUAL ACTIVITY IN THE REMAINDER OF THE SKELETON. Chest X-Ray 04/08/17 00:00 IMPRESSION: STABLE APPEARANCE OF THE CHEST STATUS POST LUNG BIOPSY. NO PNEUMOTHORAX IDENTIFIED. Lung Biopsy CT 04/08/17 08:00 IMPRESSION: CT GUIDED BIOPSY OF THE LEFT LUNG MASS PERFORMED WITHOUT IMMEDIATE COMPLICATION. PATHOLOGY PENDING. Assessment & Plan - Diagnosis (1) Pneumonia due to Gram-negative bacteria Is this a current diagnosis for this admission?: Yes (2) Chronic hypercapnic respiratory failure Is this a current diagnosis for this admission?: Yes (3) COPD (chronic obstructive pulmonary disease) Qualifiers: Chronic bronchitis type: unspecified Is this a current diagnosis for this admission?: Yes (4) Malignant neoplasm of lower lobe, left bronchus or lung Is this a current diagnosis for this admission?: Yes (5) Generalized anxiety disorder Is this a current diagnosis for this admission?: Yes (6) Constipation due to opioid therapy Is this a current diagnosis for this admission?: Yes - Time Time Spent with patient: 25-34 minutes Medications reviewed and adjusted accordingly: Yes Anticipated discharge: SNF Within: Other - Inpatient Certification Based on my medical assessment, after consideration of the patient's comorbidities, presenting symptoms, or acuity I expect that the services needed warrant INPATIENT care.: Yes I certify that my determination is in accordance with my understanding of Medicare's requirements for reasonable and necessary INPATIENT services [42 CFR 412.3e].: Yes Medical Necessity: Need Close Monitoring Due to Risk of Patient Decompensation, Need For IV Fluids, Need For Continuous Telemetry Monitoring, Need for Nebulizer Therapy and Monitoring of Response, Need for IV Antibiotics Post Hospital Care: D/C or Transfer Summary - Plan Summary Plan Summary: Continue IV Cefepime coverage. Follow up on her CT scan of brain official findings. Maintain on all other current medication management.
--- NOTE | 2017-04-15 13:32 | RADIOLOGY REPORT (SQ) ---
EXAM DESCRIPTION: CT HEAD WITHOUT COMPLETED DATE/TIME: 04/15/2017 1:05 pm REASON FOR STUDY: weakness unable hold objects COMPARISON: 10/16/2016. TECHNIQUE: Axial images acquired through the brain without intravenous contrast. Images reviewed wi th bone, brain and subdural windows. Images stored on PACS. All CT scanners at this facility use dose modulation, iterative reconstruction, and/or weight based d osing when appropriate to reduce radiation dose to as low as reasonably achievable (ALARA). [facility]: Dose Right [facility]: CareDose [facility]: Dose Right [facility]: Teradose 4D [facility]: [facility] RADIATION DOSE: CT Rad equipment meets quality standard of care and radiation dose reduction techniq ues were employed. CTDIvol: 49.0 mGy. DLP: 881 mGy-cm.mGy. LIMITATIONS: Motion artifact. FINDINGS: VENTRICLES: Prominent. CEREBRUM: No masses. No hemorrhage. No midline shift. Areas of low density in the white matter mos t likely due to chronic micro-vascular ischemic change. No evidence for acute infarction. CEREBELLUM: No masses. No hemorrhage. No alteration of density. No evidence for acute infarction. EXTRAAXIAL SPACES: Age-related involutional change. No fluid collections. No masses. ORBITS AND GLOBE: No intra- or extraconal masses. Normal contour of globe without masses. CALVARIUM: No fracture. PARANASAL SINUSES: Fluid in the left maxillary and sphenoid sinuses. SOFT TISSUES: No mass or hematoma. OTHER: No other significant finding. IMPRESSION: 1. CHRONIC CHANGES OF ATROPHY AND MICROVASCULAR ISCHEMIA. NO ACUTE PROCESS. 2. LEFT MAXILLARY AND SPHENOID SINUS DISEASE. EVIDENCE OF ACUTE STROKE: NO. TECHNICAL DOCUMENTATION: JOB ID: [id number] Quality ID # [id number]: Final reports with documentation of one or more dose reduction techniques (e.g., Au tomated exposure control, adjustment of the mA and/or kV according to patient size, use of iterative reconstruction technique) 2010 [employer]- All Rights Reserved
[2017-04-15] MEDS: NORMAL SALINE 1000 ML 1,000 ML IV PRN (16:10)
[2017-04-15] MEDS: DOCUSATE SODIUM 100 MG CAPSULE PO SCH (18:50)
[2017-04-15] MEDS: ATORVASTATIN CALCIUM 10 MG TABLET PO SCH (21:12)
[2017-04-15] MEDS: MIRTAZAPINE 15 MG TABLET PO SCH (21:12)
[2017-04-15] MEDS: CETIRIZINE 5 MG TABLET PO SCH (21:12)
[2017-04-16] MEDS: IPRATROPIUM/ALBUTEROL 0.5-2.5 MG/3 ML AMPUL NEB SCH ×6 (00:19→19:42)
[2017-04-16] MEDS: OXYCODONE HCL IR 5 MG TABLET PO PRN ×3 (01:05→22:36)
[2017-04-16] MEDS: OXYCODONE-ACETAMINOPHEN 5-325 MG TABLET PO PRN ×3 (01:05→22:36)
[2017-04-16] MEDS: NORMAL SALINE 1000 ML 1,000 ML IV PRN ×2 (04:15→22:31)
[2017-04-16 04:44] LABS: ABSOLUTE BASOPHILS # (AUTO) 0.1 10^3/uL (0.0-0.2); ABSOLUTE EOSINOPHILS # (AUTO) 0.3 10^3/uL (0.0-0.6); ABSOLUTE LYMPHOCYTES (AUTO) 2.4 10^3/uL (0.5-4.7); ABSOLUTE MONOCYTES (AUTO) 1.3 10^3/uL (0.1-1.4); ABSOLUTE NEUT (AUTO) 6.1 10^3/uL (1.7-8.2); BASOPHILS % (AUTO) 1.1 % (0-2); EOSINOPHILS % (AUTO) 2.9 % (0-6); HEMOGLOBIN 8.6 g/dL (12.0-15.5); MEAN CORPUSCULAR HEMOGLOBIN 26.8 pg (27.0-33.4); MEAN CORPUSCULAR HGB CONC 30.8 g/dL (32.0-36.0); MEAN CORPUSCULAR VOLUME 87 fl (80-97); MONOCYTES % (AUTO) 12.4 % (3-13); PLATELET COUNT 299 10^3/uL (150-450); RED BLOOD COUNT 3.22 10^6/uL (3.72-5.28); RED CELL DISTRIBUTION WIDTH 16.9 % (11.5-14.0); SEGMENTED NEUTROPHILS % (AUTO) 59.6 % (42-78); TOTAL CELLS COUNTED % (AUTO) 100 %; WHITE BLOOD COUNT 10.2 10^3/uL (4.0-10.5)
[2017-04-16] MEDS: LANSOPRAZOLE 30 MG TAB.RAP.DR PO SCH (05:39)
[2017-04-16] MEDS: BUSPIRONE HCL 10 MG TABLET PO SCH ×3 (05:39→22:37)
[2017-04-16] MEDS: CEFEPIME HCL 2 GM in DEXTROSE 5%-WATER 50 ML IV SCH ×2 (05:39→17:59)
[2017-04-16] MEDS: PREGABALIN 75 MG CAPSULE PO SCH ×3 (05:39→22:37)
[2017-04-16] MEDS: METHOCARBAMOL 500 MG TABLET PO SCH ×2 (09:48→22:37)
[2017-04-16] MEDS: PREDNISONE 5 MG TABLET PO SCH (09:48)
[2017-04-16] MEDS: TIOTROPIUM BROMIDE DPI 5 CAP/KIT (18 MCG/CAP) IH SCH (09:48)
[2017-04-16] MEDS: CITALOPRAM HYDROBROMIDE 20 MG TABLET PO SCH (09:48)
[2017-04-16] MEDS: ENOXAPARIN SODIUM INJ 40 MG/0.4 ML DISP.SYRIN SUBCUT SCH (09:48)
[2017-04-16] MEDS: MICONAZOLE NITRATE 2% CREAM 15GM TP SCH ×2 (09:49→18:01)
[2017-04-16] MEDS: BUDESONIDE/FORMOTEROL 160-4.5 MCG 60 PUFF/6 GM MDI IH SCH ×2 (09:50→22:36)
[2017-04-16] MEDS: CLONIDINE HCL 0.1 MG TABLET PO SCH ×2 (12:02→22:38)
[2017-04-16] MEDS: LOSARTAN POTASSIUM 50 MG TABLET PO SCH (12:02)
[2017-04-16] MEDS: AMLODIPINE BESYLATE 5 MG TABLET PO SCH (12:02)
[2017-04-16] MEDS: FERROUS SULFATE 325 MG TABLET PO SCH (12:11)
[2017-04-16] MEDS: MULTIVITAMIN TABLET PO SCH (12:11)
--- NOTE | 2017-04-16 17:59 | PDOC PROGRESS REPORT ---
Subjective Progress Note for:: 04/16/17 Subjective:: Patient was seen by the bedside, she is a resident of [facility] [place], she has malignant neoplasm of the left lung, She wants treatment, the concern was that the half-way does not take care of resident on active cancer treatment but my understanding is that they can make exceptional for patient on radiation therapy but not on chemotherapy. I spoke to the medical oncologist and the radiation oncologist about the plan of care The plan is for the patient to receive the initial radiation treatment in the hospital before discharge Reason For Visit: ACUTE HYPERCAPNIC RESPIRATORY FAILURE,COPD,HTN Physical Exam Vital Signs: Temp Pulse Resp BP Pulse Ox 97.4 F 88 20 96/64 L 97 04/16/17 16:16 04/16/17 16:18 04/16/17 16:16 04/16/17 16:16 04/16/17 16:16 Intake & Output 04/15/17 04/16/17 04/17/17 06:59 06:59 06:59 Intake Total 1896 1320 Output Total 1700 750 Balance 196 570 Weight 71.8 kg 71.4 kg General appearance: PRESENT: no acute distress Eye exam: PRESENT: PERRLA Respiratory exam: PRESENT: rhonchi Cardiovascular exam: PRESENT: +S1, +S2 GI/Abdominal exam: PRESENT: soft Neurological exam: PRESENT: alert, altered Results Laboratory Results: 04/16/17 04:32 04/15/17 05:55 04/16/17 04:32 WBC 10.2 RBC 3.22 L Hgb 8.6 L Hct 28.0 L MCV 87 MCH 26.8 L MCHC 30.8 L RDW 16.9 H Plt Count 299 Seg Neutrophils % 59.6 Lymphocytes % 24.0 Monocytes % 12.4 Eosinophils % 2.9 Basophils % 1.1 Absolute Neutrophils 6.1 Absolute Lymphocytes 2.4 Absolute Monocytes 1.3 Absolute Eosinophils 0.3 Absolute Basophils 0.1 Impressions: Chest CT 03/28/17 00:00 IMPRESSION: 1. Significant increase in size of pleural-based left lower lobe lung mass now measuring 6.2 cm. This is concerning malignancy. This lesion would be amenable to percutaneous biopsy. 2. Central lobular emphysematous changes. 3. Coronary artery atherosclerosis. This exam was performed according to our departmental dose-optimization program, which includes automated exposure control, adjustment of the mA and/or kV according to patient size and/or use of iterative reconstruction technique. Abdomen/Pelvis CT 04/05/17 00:00 IMPRESSION: No evidence of metastatic disease. Body Scan Nuclear Medicine 04/08/17 00:00 IMPRESSION: AREAS OF ACTIVITY IN THE SPINE WHICH CORRESPOND WITH NUMEROUS WEDGE COMPRESSION DEFORMITIES. NO UNUSUAL ACTIVITY IN THE REMAINDER OF THE SKELETON. Chest X-Ray 04/08/17 00:00 IMPRESSION: STABLE APPEARANCE OF THE CHEST STATUS POST LUNG BIOPSY. NO PNEUMOTHORAX IDENTIFIED. Lung Biopsy CT 04/08/17 08:00 IMPRESSION: CT GUIDED BIOPSY OF THE LEFT LUNG MASS PERFORMED WITHOUT IMMEDIATE COMPLICATION. PATHOLOGY PENDING. Head CT 04/15/17 11:30 IMPRESSION: 1. CHRONIC CHANGES OF ATROPHY AND MICROVASCULAR ISCHEMIA. NO ACUTE PROCESS. 2. LEFT MAXILLARY AND SPHENOID SINUS DISEASE. EVIDENCE OF ACUTE STROKE: NO. Assessment & Plan - Diagnosis (1) Acute hypercapnic respiratory failure Is this a current diagnosis for this admission?: Yes (2) Very severe chronic obstructive pulmonary disease Is this a current diagnosis for this admission?: Yes (3) HTN (hypertension) Qualifiers: Hypertension type: essential hypertension Qualified Code(s): I10 - Essential (primary) hypertension Is this a current diagnosis for this admission?: Yes (4) Malignant neoplasm of lower lobe, left bronchus or lung Is this a current diagnosis for this admission?: Yes (5) Sepsis, polymicrobial Is this a current diagnosis for this admission?: Yes (6) Squamous cell carcinoma of left lung Is this a current diagnosis for this admission?: Yes
[2017-04-16] MEDS: DOCUSATE SODIUM 100 MG CAPSULE PO SCH (18:02)
[2017-04-16] MEDS: CETIRIZINE 5 MG TABLET PO SCH (22:36)
[2017-04-16] MEDS: MIRTAZAPINE 15 MG TABLET PO SCH (22:37)
[2017-04-16] MEDS: ATORVASTATIN CALCIUM 10 MG TABLET PO SCH (22:37)
[2017-04-17] MEDS: IPRATROPIUM/ALBUTEROL 0.5-2.5 MG/3 ML AMPUL NEB SCH ×6 (00:05→19:40)
[2017-04-17] MEDS: PREGABALIN 75 MG CAPSULE PO SCH ×3 (05:37→21:15)
[2017-04-17] MEDS: LANSOPRAZOLE 30 MG TAB.RAP.DR PO SCH (05:37)
[2017-04-17] MEDS: BUSPIRONE HCL 10 MG TABLET PO SCH ×3 (05:37→21:15)
[2017-04-17] MEDS: CEFEPIME HCL 2 GM in DEXTROSE 5%-WATER 50 ML IV SCH ×2 (05:38→17:41)
[2017-04-17] MEDS: OXYCODONE-ACETAMINOPHEN 5-325 MG TABLET PO PRN ×2 (06:08→12:52)
[2017-04-17] MEDS: OXYCODONE HCL IR 5 MG TABLET PO PRN ×2 (06:09→12:51)
[2017-04-17] MEDS: PREDNISONE 5 MG TABLET PO SCH (09:10)
[2017-04-17] MEDS: LOSARTAN POTASSIUM 50 MG TABLET PO SCH (09:10)
[2017-04-17] MEDS: METHOCARBAMOL 500 MG TABLET PO SCH ×2 (09:10→21:15)
[2017-04-17] MEDS: AMLODIPINE BESYLATE 5 MG TABLET PO SCH (09:10)
[2017-04-17] MEDS: CLONIDINE HCL 0.1 MG TABLET PO SCH ×2 (09:10→21:06)
[2017-04-17] MEDS: ENOXAPARIN SODIUM INJ 40 MG/0.4 ML DISP.SYRIN SUBCUT SCH (09:11)
[2017-04-17] MEDS: CITALOPRAM HYDROBROMIDE 20 MG TABLET PO SCH (09:11)
[2017-04-17] MEDS: BUDESONIDE/FORMOTEROL 160-4.5 MCG 60 PUFF/6 GM MDI IH SCH ×2 (09:11→21:15)
[2017-04-17] MEDS: MICONAZOLE NITRATE 2% CREAM 15GM TP SCH ×2 (09:11→17:43)
[2017-04-17] MEDS: TIOTROPIUM BROMIDE DPI 5 CAP/KIT (18 MCG/CAP) IH SCH (09:11)
[2017-04-17] MEDS: MULTIVITAMIN TABLET PO SCH (12:12)
[2017-04-17] MEDS: FERROUS SULFATE 325 MG TABLET PO SCH (12:12)
[2017-04-17] MEDS: NORMAL SALINE 1000 ML 1,000 ML IV PRN (12:52)
--- NOTE | 2017-04-17 13:32 | PDOC PROGRESS REPORT ---
Subjective Progress Note for:: 04/17/17 Subjective:: Patient was seen by the bedside, she continues to have intermittent jerking movements involving the upper extremities and the torso. She used to take clonazepam for anxiety, the medication fell off the JUN, the symptom she is manifesting is most likely due to clonazepam withdrawal syndrome, she will be started back on clonazepam. She is tentatively scheduled for radiation therapy tomorrow, DC Soliman catheter Reason For Visit: ACUTE HYPERCAPNIC RESPIRATORY FAILURE,COPD,HTN Physical Exam Vital Signs: Temp Pulse Resp BP Pulse Ox 97.5 F 81 18 92/50 L 100 04/17/17 12:05 04/17/17 12:05 04/17/17 12:05 04/17/17 12:05 04/17/17 12:05 Intake & Output 04/16/17 04/17/17 04/18/17 06:59 06:59 06:59 Intake Total 1320 1692 Output Total 750 2420 Balance 570 -728 Weight 71.4 kg 75.2 kg General appearance: PRESENT: no acute distress Eye exam: PRESENT: PERRLA Respiratory exam: PRESENT: rhonchi Cardiovascular exam: PRESENT: +S1, +S2 GI/Abdominal exam: PRESENT: soft Neurological exam: PRESENT: alert Results Laboratory Results: 04/16/17 04:32 04/15/17 05:55 Impressions: Chest CT 03/28/17 00:00 IMPRESSION: 1. Significant increase in size of pleural-based left lower lobe lung mass now measuring 6.2 cm. This is concerning malignancy. This lesion would be amenable to percutaneous biopsy. 2. Central lobular emphysematous changes. 3. Coronary artery atherosclerosis. This exam was performed according to our departmental dose-optimization program, which includes automated exposure control, adjustment of the mA and/or kV according to patient size and/or use of iterative reconstruction technique. Abdomen/Pelvis CT 04/05/17 00:00 IMPRESSION: No evidence of metastatic disease. Body Scan Nuclear Medicine 04/08/17 00:00 IMPRESSION: AREAS OF ACTIVITY IN THE SPINE WHICH CORRESPOND WITH NUMEROUS WEDGE COMPRESSION DEFORMITIES. NO UNUSUAL ACTIVITY IN THE REMAINDER OF THE SKELETON. Chest X-Ray 04/08/17 00:00 IMPRESSION: STABLE APPEARANCE OF THE CHEST STATUS POST LUNG BIOPSY. NO PNEUMOTHORAX IDENTIFIED. Lung Biopsy CT 04/08/17 08:00 IMPRESSION: CT GUIDED BIOPSY OF THE LEFT LUNG MASS PERFORMED WITHOUT IMMEDIATE COMPLICATION. PATHOLOGY PENDING. Head CT 04/15/17 11:30 IMPRESSION: 1. CHRONIC CHANGES OF ATROPHY AND MICROVASCULAR ISCHEMIA. NO ACUTE PROCESS. 2. LEFT MAXILLARY AND SPHENOID SINUS DISEASE. EVIDENCE OF ACUTE STROKE: NO. Assessment & Plan - Diagnosis (1) Acute hypercapnic respiratory failure Is this a current diagnosis for this admission?: Yes (2) Very severe chronic obstructive pulmonary disease Is this a current diagnosis for this admission?: Yes (3) HTN (hypertension) Qualifiers: Hypertension type: essential hypertension Qualified Code(s): I10 - Essential (primary) hypertension Is this a current diagnosis for this admission?: Yes (4) Malignant neoplasm of lower lobe, left bronchus or lung Is this a current diagnosis for this admission?: Yes (5) Sepsis, polymicrobial Is this a current diagnosis for this admission?: Yes (6) Squamous cell carcinoma of left lung Is this a current diagnosis for this admission?: Yes - Plan Summary Plan Summary: Start clonazepam 0.5 mg, 1 tablet 2, times a day, 2 discontinue Soliman catheter
[2017-04-17] MEDS: DOCUSATE SODIUM 100 MG CAPSULE PO SCH (17:41)
[2017-04-17] MEDS: CLONAZEPAM 1 MG TABLET PO SCH (17:41)
[2017-04-17] MEDS: MIRTAZAPINE 15 MG TABLET PO SCH (21:15)
[2017-04-17] MEDS: ATORVASTATIN CALCIUM 10 MG TABLET PO SCH (21:15)
[2017-04-17] MEDS: CETIRIZINE 5 MG TABLET PO SCH (21:15)
[2017-04-18] MEDS: IPRATROPIUM/ALBUTEROL 0.5-2.5 MG/3 ML AMPUL NEB SCH ×7 (00:11→23:45)
[2017-04-18] MEDS: NORMAL SALINE 1000 ML 1,000 ML IV PRN ×2 (03:21→20:28)
[2017-04-18] MEDS: CEFEPIME HCL 2 GM in DEXTROSE 5%-WATER 50 ML IV SCH ×2 (05:44→17:18)
[2017-04-18] MEDS: BUSPIRONE HCL 10 MG TABLET PO SCH ×3 (05:44→21:02)
[2017-04-18] MEDS: PREGABALIN 75 MG CAPSULE PO SCH ×3 (05:44→21:04)
[2017-04-18] MEDS: LANSOPRAZOLE 30 MG TAB.RAP.DR PO SCH (05:44)
[2017-04-18] MEDS: CLONAZEPAM 1 MG TABLET PO SCH ×2 (05:44→17:18)
[2017-04-18] MEDS: LOSARTAN POTASSIUM 50 MG TABLET PO SCH (09:26)
[2017-04-18] MEDS: PREDNISONE 5 MG TABLET PO SCH (09:26)
[2017-04-18] MEDS: AMLODIPINE BESYLATE 5 MG TABLET PO SCH (09:27)
[2017-04-18] MEDS: CLONIDINE HCL 0.1 MG TABLET PO SCH ×2 (09:27→21:03)
[2017-04-18] MEDS: CITALOPRAM HYDROBROMIDE 20 MG TABLET PO SCH (09:27)
[2017-04-18] MEDS: ENOXAPARIN SODIUM INJ 40 MG/0.4 ML DISP.SYRIN SUBCUT SCH (09:27)
[2017-04-18] MEDS: METHOCARBAMOL 500 MG TABLET PO SCH ×2 (09:27→21:04)
[2017-04-18] MEDS: BUDESONIDE/FORMOTEROL 160-4.5 MCG 60 PUFF/6 GM MDI IH SCH ×2 (09:28→21:05)
[2017-04-18] MEDS: TIOTROPIUM BROMIDE DPI 5 CAP/KIT (18 MCG/CAP) IH SCH (09:28)
[2017-04-18] MEDS: OXYCODONE HCL IR 5 MG TABLET PO PRN (09:28)
[2017-04-18] MEDS: MICONAZOLE NITRATE 2% CREAM 15GM TP SCH ×2 (09:29→17:18)
[2017-04-18] MEDS: OXYCODONE-ACETAMINOPHEN 5-325 MG TABLET PO PRN (09:29)
[2017-04-18] MEDS: MULTIVITAMIN TABLET PO SCH (11:24)
[2017-04-18] MEDS: FERROUS SULFATE 325 MG TABLET PO SCH (11:24)
--- NOTE | 2017-04-18 12:06 | PDOC PROGRESS REPORT ---
Subjective Progress Note for:: 04/18/17 Subjective:: She is tentatively scheduled for radiation therapy today for the lung cancer Reason For Visit: ACUTE HYPERCAPNIC RESPIRATORY FAILURE,COPD,HTN Physical Exam Vital Signs: Temp Pulse Resp BP Pulse Ox 97.7 F 97 18 132/76 H 96 04/18/17 07:44 04/18/17 11:47 04/18/17 11:47 04/18/17 07:44 04/18/17 11:47 Intake & Output 04/17/17 04/18/17 04/19/17 06:59 06:59 06:59 Intake Total 1692 2463 Output Total 2420 1200 Balance -728 1263 Weight 75.2 kg 74.5 kg General appearance: PRESENT: mild distress Head exam: PRESENT: atraumatic, normocephalic Eye exam: PRESENT: conjunctiva pink, EOMI, PERRLA Mouth exam: PRESENT: moist, tongue midline Neck exam: PRESENT: full ROM Respiratory exam: PRESENT: wheezes Cardiovascular exam: PRESENT: RRR, +S1, +S2 Pulses: PRESENT: normal dorsalis pedis pul, +2 pedal pulses bilateral Vascular exam: PRESENT: normal capillary refill GI/Abdominal exam: PRESENT: normal bowel sounds, soft Rectal exam: PRESENT: deferred Neurological exam: PRESENT: alert, CN II-XII grossly intact Psychiatric exam: PRESENT: appropriate affect, normal mood Skin exam: PRESENT: dry, intact, warm. ABSENT: cyanosis, rash Results Laboratory Results: 04/16/17 04:32 04/15/17 05:55 Impressions: Chest CT 03/28/17 00:00 IMPRESSION: 1. Significant increase in size of pleural-based left lower lobe lung mass now measuring 6.2 cm. This is concerning malignancy. This lesion would be amenable to percutaneous biopsy. 2. Central lobular emphysematous changes. 3. Coronary artery atherosclerosis. This exam was performed according to our departmental dose-optimization program, which includes automated exposure control, adjustment of the mA and/or kV according to patient size and/or use of iterative reconstruction technique. Abdomen/Pelvis CT 04/05/17 00:00 IMPRESSION: No evidence of metastatic disease. Body Scan Nuclear Medicine 04/08/17 00:00 IMPRESSION: AREAS OF ACTIVITY IN THE SPINE WHICH CORRESPOND WITH NUMEROUS WEDGE COMPRESSION DEFORMITIES. NO UNUSUAL ACTIVITY IN THE REMAINDER OF THE SKELETON. Chest X-Ray 04/08/17 00:00 IMPRESSION: STABLE APPEARANCE OF THE CHEST STATUS POST LUNG BIOPSY. NO PNEUMOTHORAX IDENTIFIED. Lung Biopsy CT 04/08/17 08:00 IMPRESSION: CT GUIDED BIOPSY OF THE LEFT LUNG MASS PERFORMED WITHOUT IMMEDIATE COMPLICATION. PATHOLOGY PENDING. Head CT 04/15/17 11:30 IMPRESSION: 1. CHRONIC CHANGES OF ATROPHY AND MICROVASCULAR ISCHEMIA. NO ACUTE PROCESS. 2. LEFT MAXILLARY AND SPHENOID SINUS DISEASE. EVIDENCE OF ACUTE STROKE: NO. Assessment & Plan - Diagnosis (1) Acute hypercapnic respiratory failure Is this a current diagnosis for this admission?: Yes (2) Very severe chronic obstructive pulmonary disease Is this a current diagnosis for this admission?: Yes (3) HTN (hypertension) Qualifiers: Hypertension type: essential hypertension Qualified Code(s): I10 - Essential (primary) hypertension Is this a current diagnosis for this admission?: Yes (4) Malignant neoplasm of lower lobe, left bronchus or lung Is this a current diagnosis for this admission?: Yes (5) Sepsis, polymicrobial Is this a current diagnosis for this admission?: Yes (6) Squamous cell carcinoma of left lung Is this a current diagnosis for this admission?: Yes - Plan Summary Plan Summary: She will continue treatment
[2017-04-18 13:02] LABS: ABSOLUTE BASOPHILS # (AUTO) 0.1 10^3/uL (0.0-0.2); ABSOLUTE EOSINOPHILS # (AUTO) 0.7 10^3/uL (0.0-0.6); ABSOLUTE LYMPHOCYTES (AUTO) 1.3 10^3/uL (0.5-4.7); ABSOLUTE MONOCYTES (AUTO) 1.2 10^3/uL (0.1-1.4); ABSOLUTE NEUT (AUTO) 8.1 10^3/uL (1.7-8.2); BASOPHILS % (AUTO) 1.2 % (0-2); EOSINOPHILS % (AUTO) 5.7 % (0-6); HEMATOCRIT 30.3 % (36.0-47.0); HEMOGLOBIN 9.4 g/dL (12.0-15.5); LYMPHOCYTES % (AUTO) 11.5 % (13-45); MEAN CORPUSCULAR HEMOGLOBIN 27.4 pg (27.0-33.4); MEAN CORPUSCULAR HGB CONC 31.1 g/dL (32.0-36.0); MEAN CORPUSCULAR VOLUME 88 fl (80-97); MONOCYTES % (AUTO) 10.8 % (3-13); PLATELET COUNT 314 10^3/uL (150-450); RED BLOOD COUNT 3.44 10^6/uL (3.72-5.28); RED CELL DISTRIBUTION WIDTH 16.9 % (11.5-14.0); SEGMENTED NEUTROPHILS % (AUTO) 70.8 % (42-78); TOTAL CELLS COUNTED % (AUTO) 100 %; WHITE BLOOD COUNT 11.4 10^3/uL (4.0-10.5)
[2017-04-18 13:19] LABS: ALANINE AMINOTRANSFERASE 17 U/L (9-52); ALKALINE PHOSPHATASE 70 U/L (38-126); ANION GAP 11 (5-19); ASPARTATE AMINO TRANSFERASE 13 U/L (14-36); BILIRUBIN,DIRECT 0.1 mg/dL (0.0-0.4); BILIRUBIN,TOTAL 0.1 mg/dL (0.2-1.3); BLOOD UREA NITROGEN 15 mg/dL (7-20); CALCIUM 9.3 mg/dL (8.4-10.2); CARBON DIOXIDE 21 mmol/L (22-30); CHLORIDE 113 mmol/L (98-107); GLUCOSE 131 mg/dL (75-110); POTASSIUM 3.8 mmol/L (3.6-5.0); SODIUM 145.1 mmol/L (137-145); TOTAL PROTEIN 5.7 g/dL (6.3-8.2)
--- NOTE | 2017-04-18 13:53 | PDOC PROGRESS REPORT ---
Subjective Progress Note for:: 04/16/17 Subjective:: Complains of some left-sided abdominal pain Reason For Visit: ACUTE HYPERCAPNIC RESPIRATORY FAILURE,COPD,HTN Physical Exam Vital Signs: Temp Pulse Resp BP Pulse Ox 97.4 F 88 20 96/64 L 97 04/16/17 16:16 04/16/17 16:18 04/16/17 16:16 04/16/17 16:16 04/16/17 16:16 Intake & Output 04/15/17 04/16/17 04/17/17 06:59 06:59 06:59 Intake Total 1896 1320 917 Output Total 2074 890 8616 Balance 196 570 -383 Weight 71.8 kg 71.4 kg General appearance: PRESENT: no acute distress, cooperative, disheveled, well- developed. ABSENT: mild distress, morbidly obese, severe distress, thin Head exam: PRESENT: atraumatic, normocephalic Eye exam: PRESENT: conjunctiva pale, EOMI. ABSENT: conjunctival injection, conjunctiva pink, nystagmus, periorbital swelling Mouth exam: PRESENT: dry mucosa, neck supple, tongue midline. ABSENT: laceration, moist Neck exam: ABSENT: carotid bruit, JVD, lymphadenopathy, thyromegaly, tracheal deviation, tracheostomy Respiratory exam: PRESENT: decreased breath sounds, prolonged expiratory phas, rales, rhonchi, symmetrical, unlabored, wheezes. ABSENT: accessory muscle use, chest wall tenderness, clear to auscultation ghulam, crackles, retraction, stridor , tachypnea Cardiovascular exam: PRESENT: RRR, +S1, +S2 Pulses: PRESENT: normal radial pulses GI/Abdominal exam: PRESENT: normal bowel sounds, soft, tenderness. ABSENT: distended, guarding, mass, organolmegaly, rebound Extremities exam: ABSENT: clubbing, joint swelling Neurological exam: PRESENT: alert, awake Psychiatric exam: PRESENT: flat affect Skin exam: PRESENT: dry, warm Results Laboratory Results: 04/16/17 04:32 04/15/17 05:55 04/16/17 04:32 WBC 10.2 RBC 3.22 L Hgb 8.6 L Hct 28.0 L MCV 87 MCH 26.8 L MCHC 30.8 L RDW 16.9 H Plt Count 299 Seg Neutrophils % 59.6 Lymphocytes % 24.0 Monocytes % 12.4 Eosinophils % 2.9 Basophils % 1.1 Absolute Neutrophils 6.1 Absolute Lymphocytes 2.4 Absolute Monocytes 1.3 Absolute Eosinophils 0.3 Absolute Basophils 0.1 Impressions: Chest CT 03/28/17 00:00 IMPRESSION: 1. Significant increase in size of pleural-based left lower lobe lung mass now measuring 6.2 cm. This is concerning malignancy. This lesion would be amenable to percutaneous biopsy. 2. Central lobular emphysematous changes. 3. Coronary artery atherosclerosis. This exam was performed according to our departmental dose-optimization program, which includes automated exposure control, adjustment of the mA and/or kV according to patient size and/or use of iterative reconstruction technique. Abdomen/Pelvis CT 04/05/17 00:00 IMPRESSION: No evidence of metastatic disease. Body Scan Nuclear Medicine 04/08/17 00:00 IMPRESSION: AREAS OF ACTIVITY IN THE SPINE WHICH CORRESPOND WITH NUMEROUS WEDGE COMPRESSION DEFORMITIES. NO UNUSUAL ACTIVITY IN THE REMAINDER OF THE SKELETON. Chest X-Ray 04/08/17 00:00 IMPRESSION: STABLE APPEARANCE OF THE CHEST STATUS POST LUNG BIOPSY. NO PNEUMOTHORAX IDENTIFIED. Lung Biopsy CT 04/08/17 08:00 IMPRESSION: CT GUIDED BIOPSY OF THE LEFT LUNG MASS PERFORMED WITHOUT IMMEDIATE COMPLICATION. PATHOLOGY PENDING. Head CT 04/15/17 11:30 IMPRESSION: 1. CHRONIC CHANGES OF ATROPHY AND MICROVASCULAR ISCHEMIA. NO ACUTE PROCESS. 2. LEFT MAXILLARY AND SPHENOID SINUS DISEASE. EVIDENCE OF ACUTE STROKE: NO. Assessment & Plan - Diagnosis (1) Acute hypercapnic respiratory failure Is this a current diagnosis for this admission?: Yes Plan: Continue on NIPPV (2) Lung cancer Qualifiers: Lung location: unspecified part of lung Is this a current diagnosis for this admission?: Yes Plan: biopsy poor diff sqamous cell (3) MRSA pneumonia Qualifiers: Laterality: unspecified laterality Lung location: unspecified part of lung Qualified Code(s): J15.212 - Pneumonia due to Methicillin resistant Staphylococcus aureus Is this a current diagnosis for this admission?: Yes Plan: No evidence to substantiate at this time Labs- All tests 24 hr 03/28/17 03/28/17 03/29/17 10:15 21:47 05:24 WBC 13.3 H 9.0 8.9 03/30/17 06:08 WBC 10.9 H 03/28/17 11:16 Gram Stain - Preliminary Sputum Sputum Culture - Preliminary Proteus Mirabilis Gram Positive Cocci Clusters Pseudomonas Aeruginosa Normal Caron Absent 03/28/17 11:16 Gram Stain - Final Sputum Sputum Culture - Final Proteus Mirabilis Staphylococcus Aureus Pseudomonas Aeruginosa Normal Caorn Absent
--- NOTE | 2017-04-18 13:55 | PDOC PROGRESS REPORT ---
Subjective Progress Note for:: 04/17/17 Subjective:: c/o bilat upper ext weakness and spasms Reason For Visit: ACUTE HYPERCAPNIC RESPIRATORY FAILURE,COPD,HTN Physical Exam Vital Signs: Temp Pulse Resp BP Pulse Ox 98.2 F 80 16 113/65 98 04/17/17 08:00 04/17/17 11:54 04/17/17 11:54 04/17/17 08:00 04/17/17 11:54 Intake & Output 04/16/17 04/17/17 04/18/17 06:59 06:59 06:59 Intake Total 1320 1692 Output Total 750 2420 Balance 570 -728 Weight 71.4 kg 75.2 kg General appearance: PRESENT: no acute distress, cooperative, disheveled, obese. ABSENT: mild distress, morbidly obese, severe distress Head exam: PRESENT: atraumatic, normocephalic Eye exam: PRESENT: conjunctiva pale, EOMI. ABSENT: conjunctival injection, conjunctiva pink Mouth exam: PRESENT: dry mucosa, neck supple, tongue midline. ABSENT: laceration, moist Neck exam: ABSENT: carotid bruit, JVD, lymphadenopathy, thyromegaly, tracheal deviation, tracheostomy Respiratory exam: PRESENT: decreased breath sounds, prolonged expiratory phas, rales, rhonchi, symmetrical, unlabored, wheezes. ABSENT: accessory muscle use, chest wall tenderness, clear to auscultation ghulam, crackles, retraction, stridor , tachypnea Cardiovascular exam: PRESENT: RRR, +S1, +S2 Pulses: PRESENT: normal radial pulses GI/Abdominal exam: PRESENT: tenderness Extremities exam: ABSENT: clubbing, joint swelling Musculoskeletal exam: ABSENT: deformity, dislocation Neurological exam: PRESENT: alert, awake Skin exam: PRESENT: dry, warm Results Laboratory Results: 04/16/17 04:32 04/15/17 05:55 Impressions: Chest CT 03/28/17 00:00 IMPRESSION: 1. Significant increase in size of pleural-based left lower lobe lung mass now measuring 6.2 cm. This is concerning malignancy. This lesion would be amenable to percutaneous biopsy. 2. Central lobular emphysematous changes. 3. Coronary artery atherosclerosis. This exam was performed according to our departmental dose-optimization program, which includes automated exposure control, adjustment of the mA and/or kV according to patient size and/or use of iterative reconstruction technique. Abdomen/Pelvis CT 04/05/17 00:00 IMPRESSION: No evidence of metastatic disease. Body Scan Nuclear Medicine 04/08/17 00:00 IMPRESSION: AREAS OF ACTIVITY IN THE SPINE WHICH CORRESPOND WITH NUMEROUS WEDGE COMPRESSION DEFORMITIES. NO UNUSUAL ACTIVITY IN THE REMAINDER OF THE SKELETON. Chest X-Ray 04/08/17 00:00 IMPRESSION: STABLE APPEARANCE OF THE CHEST STATUS POST LUNG BIOPSY. NO PNEUMOTHORAX IDENTIFIED. Lung Biopsy CT 04/08/17 08:00 IMPRESSION: CT GUIDED BIOPSY OF THE LEFT LUNG MASS PERFORMED WITHOUT IMMEDIATE COMPLICATION. PATHOLOGY PENDING. Head CT 04/15/17 11:30 IMPRESSION: 1. CHRONIC CHANGES OF ATROPHY AND MICROVASCULAR ISCHEMIA. NO ACUTE PROCESS. 2. LEFT MAXILLARY AND SPHENOID SINUS DISEASE. EVIDENCE OF ACUTE STROKE: NO. Assessment & Plan - Diagnosis (1) Acute hypercapnic respiratory failure Is this a current diagnosis for this admission?: Yes Plan: Continue on NIPPV (2) Lung cancer Qualifiers: Lung location: unspecified part of lung Is this a current diagnosis for this admission?: Yes Plan: biopsy poor diff sqamous cell (3) MRSA pneumonia Qualifiers: Laterality: unspecified laterality Lung location: unspecified part of lung Qualified Code(s): J15.212 - Pneumonia due to Methicillin resistant Staphylococcus aureus Is this a current diagnosis for this admission?: Yes
--- NOTE | 2017-04-18 13:58 | PDOC PROGRESS REPORT ---
Subjective Progress Note for:: 04/18/17 Subjective:: continues to c/o bilat upper ext weakness and spasms Reason For Visit: ACUTE HYPERCAPNIC RESPIRATORY FAILURE,COPD,HTN Physical Exam Vital Signs: Temp Pulse Resp BP Pulse Ox 97.7 F 91 18 132/76 H 96 04/18/17 07:44 04/18/17 08:38 04/18/17 08:38 04/18/17 07:44 04/18/17 08:38 Intake & Output 04/17/17 04/18/17 04/19/17 06:59 06:59 06:59 Intake Total 1692 2463 Output Total 2420 1200 Balance -728 1263 Weight 75.2 kg 74.5 kg General appearance: PRESENT: no acute distress, cooperative, disheveled. ABSENT : mild distress, morbidly obese, severe distress Head exam: PRESENT: atraumatic, normocephalic Eye exam: PRESENT: conjunctiva pale, EOMI. ABSENT: conjunctival injection, conjunctiva pink Mouth exam: PRESENT: dry mucosa, neck supple, tongue midline. ABSENT: laceration, moist Neck exam: ABSENT: carotid bruit, JVD, lymphadenopathy, thyromegaly, tracheal deviation, tracheostomy Respiratory exam: PRESENT: decreased breath sounds, prolonged expiratory phas, rales, rhonchi, symmetrical, unlabored, wheezes. ABSENT: accessory muscle use, chest wall tenderness, clear to auscultation ghulam, crackles, retraction, stridor , tachypnea Cardiovascular exam: PRESENT: RRR, +S1, +S2. ABSENT: rubs Pulses: PRESENT: normal radial pulses Extremities exam: ABSENT: clubbing, joint swelling Musculoskeletal exam: ABSENT: deformity, dislocation Neurological exam: PRESENT: awake Skin exam: PRESENT: dry, warm Results Laboratory Results: 04/16/17 04:32 04/15/17 05:55 Impressions: Chest CT 03/28/17 00:00 IMPRESSION: 1. Significant increase in size of pleural-based left lower lobe lung mass now measuring 6.2 cm. This is concerning malignancy. This lesion would be amenable to percutaneous biopsy. 2. Central lobular emphysematous changes. 3. Coronary artery atherosclerosis. This exam was performed according to our departmental dose-optimization program, which includes automated exposure control, adjustment of the mA and/or kV according to patient size and/or use of iterative reconstruction technique. Abdomen/Pelvis CT 04/05/17 00:00 IMPRESSION: No evidence of metastatic disease. Body Scan Nuclear Medicine 04/08/17 00:00 IMPRESSION: AREAS OF ACTIVITY IN THE SPINE WHICH CORRESPOND WITH NUMEROUS WEDGE COMPRESSION DEFORMITIES. NO UNUSUAL ACTIVITY IN THE REMAINDER OF THE SKELETON. Chest X-Ray 04/08/17 00:00 IMPRESSION: STABLE APPEARANCE OF THE CHEST STATUS POST LUNG BIOPSY. NO PNEUMOTHORAX IDENTIFIED. Lung Biopsy CT 04/08/17 08:00 IMPRESSION: CT GUIDED BIOPSY OF THE LEFT LUNG MASS PERFORMED WITHOUT IMMEDIATE COMPLICATION. PATHOLOGY PENDING. Head CT 04/15/17 11:30 IMPRESSION: 1. CHRONIC CHANGES OF ATROPHY AND MICROVASCULAR ISCHEMIA. NO ACUTE PROCESS. 2. LEFT MAXILLARY AND SPHENOID SINUS DISEASE. EVIDENCE OF ACUTE STROKE: NO. Assessment & Plan - Diagnosis (1) Acute hypercapnic respiratory failure Is this a current diagnosis for this admission?: Yes Plan: Continue on NIPPV (2) Lung cancer Qualifiers: Lung location: unspecified part of lung Is this a current diagnosis for this admission?: Yes Plan: to start XRT today (3) MRSA pneumonia Qualifiers: Laterality: unspecified laterality Lung location: unspecified part of lung Qualified Code(s): J15.212 - Pneumonia due to Methicillin resistant Staphylococcus aureus Is this a current diagnosis for this admission?: Yes
[2017-04-18] MEDS: DOCUSATE SODIUM 100 MG CAPSULE PO SCH (17:17)
[2017-04-18] MEDS: ATORVASTATIN CALCIUM 10 MG TABLET PO SCH (21:03)
[2017-04-18] MEDS: MIRTAZAPINE 15 MG TABLET PO SCH (21:03)
[2017-04-18] MEDS: CETIRIZINE 5 MG TABLET PO SCH (21:05)
[2017-04-19] MEDS: OXYCODONE-ACETAMINOPHEN 5-325 MG TABLET PO PRN ×3 (02:50→18:26)
[2017-04-19] MEDS: OXYCODONE HCL IR 5 MG TABLET PO PRN ×3 (02:51→18:25)
[2017-04-19] MEDS: IPRATROPIUM/ALBUTEROL 0.5-2.5 MG/3 ML AMPUL NEB SCH ×5 (03:43→20:09)
[2017-04-19] MEDS: CEFEPIME HCL 2 GM in DEXTROSE 5%-WATER 50 ML IV SCH ×2 (07:30→17:14)
[2017-04-19] MEDS: LANSOPRAZOLE 30 MG TAB.RAP.DR PO SCH (07:31)
[2017-04-19] MEDS: CLONAZEPAM 1 MG TABLET PO SCH ×2 (07:31→17:14)
[2017-04-19] MEDS: PREGABALIN 75 MG CAPSULE PO SCH ×3 (07:31→22:03)
[2017-04-19] MEDS: BUSPIRONE HCL 10 MG TABLET PO SCH ×3 (07:31→22:03)
[2017-04-19] MEDS: BUDESONIDE/FORMOTEROL 160-4.5 MCG 60 PUFF/6 GM MDI IH SCH ×2 (10:41→22:04)
[2017-04-19] MEDS: METHOCARBAMOL 500 MG TABLET PO SCH ×2 (10:42→22:00)
[2017-04-19] MEDS: CITALOPRAM HYDROBROMIDE 20 MG TABLET PO SCH (10:42)
[2017-04-19] MEDS: PREDNISONE 5 MG TABLET PO SCH (10:42)
[2017-04-19] MEDS: ENOXAPARIN SODIUM INJ 40 MG/0.4 ML DISP.SYRIN SUBCUT SCH (10:42)
[2017-04-19] MEDS: TIOTROPIUM BROMIDE DPI 5 CAP/KIT (18 MCG/CAP) IH SCH (10:43)
[2017-04-19] MEDS: MICONAZOLE NITRATE 2% CREAM 15GM TP SCH ×2 (10:43→17:16)
[2017-04-19] MEDS: AMLODIPINE BESYLATE 5 MG TABLET PO SCH (10:45)
[2017-04-19] MEDS: LOSARTAN POTASSIUM 50 MG TABLET PO SCH (10:45)
[2017-04-19] MEDS: CLONIDINE HCL 0.1 MG TABLET PO SCH ×2 (10:45→22:02)
[2017-04-19] MEDS: NORMAL SALINE 1000 ML 1,000 ML IV PRN (10:46)
[2017-04-19] MEDS: FERROUS SULFATE 325 MG TABLET PO SCH (11:34)
[2017-04-19] MEDS: MULTIVITAMIN TABLET PO SCH (11:34)
--- NOTE | 2017-04-19 12:52 | PDOC PROGRESS REPORT ---
Subjective Progress Note for:: 04/19/17 Subjective:: pt is doing fair no sob no chest pain Reason For Visit: ACUTE HYPERCAPNIC RESPIRATORY FAILURE,COPD,HTN Physical Exam Vital Signs: Temp Pulse Resp BP Pulse Ox 97.8 F 81 19 132/54 H 100 04/19/17 11:13 04/19/17 12:03 04/19/17 12:03 04/19/17 11:13 04/19/17 12:03 Intake & Output 04/18/17 04/19/17 04/20/17 06:59 06:59 06:59 Intake Total 2463 2609 237 Output Total 1200 Balance 1263 2609 237 Weight 74.5 kg 75.7 kg General appearance: PRESENT: mild distress Eye exam: PRESENT: PERRLA Mouth exam: PRESENT: neck supple Respiratory exam: PRESENT: decreased breath sounds Cardiovascular exam: PRESENT: +S1, +S2 GI/Abdominal exam: PRESENT: normal bowel sounds, soft Extremities exam: ABSENT: pedal edema Neurological exam: PRESENT: alert, awake Skin exam: PRESENT: dry Results Laboratory Results: 04/18/17 12:43 04/18/17 12:43 04/18/17 04/18/17 12:43 12:43 WBC 11.4 H RBC 3.44 L Hgb 9.4 L Hct 30.3 L MCV 88 MCH 27.4 MCHC 31.1 L RDW 16.9 H Plt Count 314 Seg Neutrophils % 70.8 Lymphocytes % 11.5 L Monocytes % 10.8 Eosinophils % 5.7 Basophils % 1.2 Absolute Neutrophils 8.1 Absolute Lymphocytes 1.3 Absolute Monocytes 1.2 Absolute Eosinophils 0.7 H Absolute Basophils 0.1 Sodium 145.1 H Potassium 3.8 Chloride 113 H Carbon Dioxide 21 L Anion Gap 11 BUN 15 Creatinine 0.68 Est GFR ( Amer) > 60 Est GFR (Non-Af Amer) > 60 Glucose 131 H Calcium 9.3 Total Bilirubin 0.1 L AST 13 L ALT 17 Alkaline Phosphatase 70 Total Protein 5.7 L Albumin 3.0 L Impressions: Chest CT 03/28/17 00:00 IMPRESSION: 1. Significant increase in size of pleural-based left lower lobe lung mass now measuring 6.2 cm. This is concerning malignancy. This lesion would be amenable to percutaneous biopsy. 2. Central lobular emphysematous changes. 3. Coronary artery atherosclerosis. This exam was performed according to our departmental dose-optimization program, which includes automated exposure control, adjustment of the mA and/or kV according to patient size and/or use of iterative reconstruction technique. Abdomen/Pelvis CT 04/05/17 00:00 IMPRESSION: No evidence of metastatic disease. Body Scan Nuclear Medicine 04/08/17 00:00 IMPRESSION: AREAS OF ACTIVITY IN THE SPINE WHICH CORRESPOND WITH NUMEROUS WEDGE COMPRESSION DEFORMITIES. NO UNUSUAL ACTIVITY IN THE REMAINDER OF THE SKELETON. Chest X-Ray 04/08/17 00:00 IMPRESSION: STABLE APPEARANCE OF THE CHEST STATUS POST LUNG BIOPSY. NO PNEUMOTHORAX IDENTIFIED. Lung Biopsy CT 04/08/17 08:00 IMPRESSION: CT GUIDED BIOPSY OF THE LEFT LUNG MASS PERFORMED WITHOUT IMMEDIATE COMPLICATION. PATHOLOGY PENDING. Head CT 04/15/17 11:30 IMPRESSION: 1. CHRONIC CHANGES OF ATROPHY AND MICROVASCULAR ISCHEMIA. NO ACUTE PROCESS. 2. LEFT MAXILLARY AND SPHENOID SINUS DISEASE. EVIDENCE OF ACUTE STROKE: NO. Assessment & Plan - Diagnosis (1) Acute hypercapnic respiratory failure Is this a current diagnosis for this admission?: Yes Plan: Continues on a BiPAP consult the pulmonary (2) COPD exacerbation Is this a current diagnosis for this admission?: Yes Plan: This a nebulizer treatments (3) Hypertension Qualifiers: Hypertension type: unspecified secondary hypertension Qualified Code(s): I15.9 - Secondary hypertension, unspecified Is this a current diagnosis for this admission?: Yes (4) Lung cancer Qualifiers: Lung location: unspecified part of lung Is this a current diagnosis for this admission?: Yes Plan: Follow with oncology - Time Time Spent with patient: 15-24 minutes Medications reviewed and adjusted accordingly: Yes Within: Other - Inpatient Certification Medical Necessity: Need Close Monitoring Due to Risk of Patient Decompensation - Plan Summary Plan Summary: Continues current medications
[2017-04-19] MEDS ORDERED: MAGNESIUM OXIDE 400 MG TABLET PO ONE (15:00)
[2017-04-19] MEDS: DOCUSATE SODIUM 100 MG CAPSULE PO SCH (17:14)
[2017-04-19] MEDS: ATORVASTATIN CALCIUM 10 MG TABLET PO SCH (22:01)
[2017-04-19] MEDS: MIRTAZAPINE 15 MG TABLET PO SCH (22:01)
[2017-04-19] MEDS: CETIRIZINE 5 MG TABLET PO SCH (22:03)
[2017-04-20] MEDS: IPRATROPIUM/ALBUTEROL 0.5-2.5 MG/3 ML AMPUL NEB SCH ×7 (00:34→23:28)
[2017-04-20] MEDS: PREGABALIN 75 MG CAPSULE PO SCH ×3 (06:35→23:05)
[2017-04-20] MEDS: CLONAZEPAM 1 MG TABLET PO SCH ×2 (06:35→17:20)
[2017-04-20] MEDS: CEFEPIME HCL 2 GM in DEXTROSE 5%-WATER 50 ML IV SCH ×2 (06:35→17:19)
[2017-04-20] MEDS: LANSOPRAZOLE 30 MG TAB.RAP.DR PO SCH (06:35)
[2017-04-20] MEDS: BUSPIRONE HCL 10 MG TABLET PO SCH ×3 (06:35→23:03)
[2017-04-20] MEDS: LOSARTAN POTASSIUM 50 MG TABLET PO SCH (10:14)
[2017-04-20] MEDS: CITALOPRAM HYDROBROMIDE 20 MG TABLET PO SCH (10:15)
[2017-04-20] MEDS: MAGNESIUM OXIDE 400 MG TABLET PO SCH (10:15)
[2017-04-20] MEDS: METHOCARBAMOL 500 MG TABLET PO SCH ×2 (10:15→23:05)
[2017-04-20] MEDS: OXYCODONE HCL IR 5 MG TABLET PO PRN ×2 (10:16→17:31)
[2017-04-20] MEDS: PREDNISONE 5 MG TABLET PO SCH (10:16)
[2017-04-20] MEDS: CLONIDINE HCL 0.1 MG TABLET PO SCH ×2 (10:16→23:04)
[2017-04-20] MEDS: AMLODIPINE BESYLATE 5 MG TABLET PO SCH (10:16)
[2017-04-20] MEDS: BUDESONIDE/FORMOTEROL 160-4.5 MCG 60 PUFF/6 GM MDI IH SCH ×2 (10:17→23:01)
[2017-04-20] MEDS: OXYCODONE-ACETAMINOPHEN 5-325 MG TABLET PO PRN ×2 (10:17→17:30)
[2017-04-20] MEDS: TIOTROPIUM BROMIDE DPI 5 CAP/KIT (18 MCG/CAP) IH SCH (10:17)
[2017-04-20] MEDS: ENOXAPARIN SODIUM INJ 40 MG/0.4 ML DISP.SYRIN SUBCUT SCH (10:18)
[2017-04-20] MEDS: MICONAZOLE NITRATE 2% CREAM 15GM TP SCH ×2 (10:18→17:20)
[2017-04-20 10:29] LABS: ANION GAP 11 (5-19); BLOOD UREA NITROGEN 18 mg/dL (7-20); CALCIUM 10.2 mg/dL (8.4-10.2); CARBON DIOXIDE 26 mmol/L (22-30); CHLORIDE 110 mmol/L (98-107); GLUCOSE 74 mg/dL (75-110); POTASSIUM 4.1 mmol/L (3.6-5.0); SODIUM 146.6 mmol/L (137-145)
[2017-04-20] MEDS: MULTIVITAMIN TABLET PO SCH (11:38)
[2017-04-20] MEDS: FERROUS SULFATE 325 MG TABLET PO SCH (11:38)
[2017-04-20] MEDS: DOCUSATE SODIUM 100 MG CAPSULE PO SCH (17:19)
--- NOTE | 2017-04-20 21:34 | PROGRESS NOTE E ---
Progress Note NAME: HUNTER GRANADOS : 1945 AGE: 72Y DATE: 04/20/2017 ROOM: 304 SUBJECTIVE: The patient is apparently doing fair. The patient other than that denied any chest pain, denied any shortness of breath. The patient was complaining of some shakiness, but other than that no other events happened. The patient's blood work is all stable. OBJECTIVE: VITAL SIGNS: The patient's vital signs stable. GENERAL: The patient is alert, awake, currently on a BiPAP, no acute distress. HEAD AND NECK: Normocephalic. PERRLA. LUNGS: No wheezing, no rales. Decreased breath sounds bilateral. HEART: S1, S2 is present. ABDOMEN: Soft. Bowel sounds present. EXTREMITIES: No edema. NEUROLOGIC: No focal weaknesses. ASSESSMENT: 1. CHRONIC RESPIRATORY FAILURE. 2. PNEUMONIA. 3. LUNG CANCER. 4. HYPERTENSION. 5. MULTIPLE OTHER COMORBIDITIES. PLAN: Continue the current medications. Discussed with the nursing staff who is taking care of the patient regarding the patient's plans and also reviewed the labs and medications. I hope the patient continues to be improved. DICTATING PHYSICIAN: MORRIS CHAN M.D. [id number] PHY#: [id number] [id number] JOB#: [id number] ACCT: [id number] cc: >
[2017-04-20] MEDS: MIRTAZAPINE 15 MG TABLET PO SCH (23:02)
[2017-04-20] MEDS: ATORVASTATIN CALCIUM 10 MG TABLET PO SCH (23:04)
[2017-04-20] MEDS: CETIRIZINE 5 MG TABLET PO SCH (23:05)
[2017-04-21] MEDS: IPRATROPIUM/ALBUTEROL 0.5-2.5 MG/3 ML AMPUL NEB SCH ×6 (03:42→23:53)
[2017-04-21] MEDS: CEFEPIME HCL 2 GM in DEXTROSE 5%-WATER 50 ML IV SCH (06:09)
[2017-04-21] MEDS: BUSPIRONE HCL 10 MG TABLET PO SCH ×3 (06:11→21:23)
[2017-04-21] MEDS: CLONAZEPAM 1 MG TABLET PO SCH ×2 (06:11→18:42)
[2017-04-21] MEDS: LANSOPRAZOLE 30 MG TAB.RAP.DR PO SCH (06:12)
[2017-04-21] MEDS: PREGABALIN 75 MG CAPSULE PO SCH ×3 (06:12→21:23)
[2017-04-21 08:57] LABS: ARTERIAL BLOOD H2CO3 1.33 mmol/L (1.05-1.35); ARTERIAL BLOOD PCO2 44.2 mmHg (35-45); ARTERIAL BLOOD PH 7.36 (7.35-7.45)
[2017-04-21 08:58] LABS: ARTERIAL BLOOD BASE EXCESS -1.4 mmol/L; ARTERIAL BLOOD FIO2 30%; ARTERIAL BLOOD HCO3 24.1 mmol/L (20-26); ARTERIAL BLOOD O2 SATURATION 97.5 % (94-98); ARTERIAL BLOOD TOTAL CO2 25.5 mmol/L (21-25)
[2017-04-21] MEDS: OXYCODONE HCL IR 5 MG TABLET PO PRN (09:16)
[2017-04-21] MEDS: METHOCARBAMOL 500 MG TABLET PO SCH ×2 (09:16→21:23)
[2017-04-21] MEDS: MAGNESIUM OXIDE 400 MG TABLET PO SCH (09:16)
[2017-04-21] MEDS: CITALOPRAM HYDROBROMIDE 20 MG TABLET PO SCH (09:16)
[2017-04-21] MEDS: OXYCODONE-ACETAMINOPHEN 5-325 MG TABLET PO PRN (09:16)
[2017-04-21] MEDS: POLYETHYLENE GLYCOL 3350 POWDER 17 GM/1 PACKET PO SCH (09:17)
[2017-04-21] MEDS: BUDESONIDE/FORMOTEROL 160-4.5 MCG 60 PUFF/6 GM MDI IH SCH ×2 (09:17→21:23)
[2017-04-21] MEDS: ENOXAPARIN SODIUM INJ 40 MG/0.4 ML DISP.SYRIN SUBCUT SCH (09:17)
[2017-04-21] MEDS: MICONAZOLE NITRATE 2% CREAM 15GM TP SCH ×2 (09:17→18:44)
[2017-04-21] MEDS: PREDNISONE 5 MG TABLET PO SCH (09:17)
[2017-04-21] MEDS: AMLODIPINE BESYLATE 5 MG TABLET PO SCH (09:18)
[2017-04-21] MEDS: TIOTROPIUM BROMIDE DPI 5 CAP/KIT (18 MCG/CAP) IH SCH (11:49)
[2017-04-21] MEDS: FERROUS SULFATE 325 MG TABLET PO SCH (11:50)
[2017-04-21] MEDS: MULTIVITAMIN TABLET PO SCH (11:50)
[2017-04-21] MEDS: LOSARTAN POTASSIUM 50 MG TABLET PO SCH (12:31)
[2017-04-21] MEDS: CLONIDINE HCL 0.1 MG TABLET PO SCH ×2 (12:32→21:18)
--- NOTE | 2017-04-21 13:59 | PDOC PROGRESS REPORT ---
Subjective Progress Note for:: 04/21/17 Subjective:: continues to c/o bilat upper ext weakness and spasms Reason For Visit: ACUTE HYPERCAPNIC RESPIRATORY FAILURE,COPD,HTN Physical Exam Vital Signs: Temp Pulse Resp BP Pulse Ox 97.6 F 96 18 130/82 H 97 04/21/17 11:58 04/21/17 11:58 04/21/17 11:58 04/21/17 11:58 04/21/17 11:58 Intake & Output 04/20/17 04/21/17 04/22/17 06:59 06:59 06:59 Intake Total 1273 357 Balance 1273 357 Weight 74.8 kg 73.5 kg General appearance: PRESENT: no acute distress, cooperative, disheveled, well- developed. ABSENT: mild distress, morbidly obese, severe distress Head exam: PRESENT: atraumatic, normocephalic Eye exam: PRESENT: conjunctiva pale, EOMI. ABSENT: conjunctival injection, conjunctiva pink, nystagmus, periorbital swelling, scleral icterus Mouth exam: PRESENT: dry mucosa, neck supple, tongue midline. ABSENT: laceration, moist Teeth exam: PRESENT: poor dentation Neck exam: ABSENT: carotid bruit, JVD, lymphadenopathy, thyromegaly, tracheal deviation, tracheostomy Respiratory exam: PRESENT: decreased breath sounds, prolonged expiratory phas, rales, rhonchi, symmetrical, unlabored, wheezes. ABSENT: accessory muscle use, chest wall tenderness, clear to auscultation ghulam, crackles, retraction, stridor , tachypnea Cardiovascular exam: PRESENT: RRR, +S1, +S2 Pulses: PRESENT: normal radial pulses GI/Abdominal exam: PRESENT: normal bowel sounds, soft. ABSENT: distended, guarding, mass, organolmegaly, rebound, tenderness Extremities exam: ABSENT: clubbing, joint swelling Musculoskeletal exam: ABSENT: deformity, dislocation Neurological exam: PRESENT: alert, awake Psychiatric exam: PRESENT: normal mood Skin exam: PRESENT: dry, warm Results Laboratory Results: 04/18/17 12:43 04/20/17 09:58 04/20/17 11:45 Carbonic Acid 1.33 HCO3/H2CO3 Ratio 18:1 ABG pH 7.36 ABG pCO2 44.2 ABG pO2 104.0 H ABG HCO3 24.1 ABG O2 Saturation 97.5 ABG Base Excess -1.4 FiO2 30% Impressions: Chest CT 03/28/17 00:00 IMPRESSION: 1. Significant increase in size of pleural-based left lower lobe lung mass now measuring 6.2 cm. This is concerning malignancy. This lesion would be amenable to percutaneous biopsy. 2. Central lobular emphysematous changes. 3. Coronary artery atherosclerosis. This exam was performed according to our departmental dose-optimization program, which includes automated exposure control, adjustment of the mA and/or kV according to patient size and/or use of iterative reconstruction technique. Abdomen/Pelvis CT 04/05/17 00:00 IMPRESSION: No evidence of metastatic disease. Body Scan Nuclear Medicine 04/08/17 00:00 IMPRESSION: AREAS OF ACTIVITY IN THE SPINE WHICH CORRESPOND WITH NUMEROUS WEDGE COMPRESSION DEFORMITIES. NO UNUSUAL ACTIVITY IN THE REMAINDER OF THE SKELETON. Chest X-Ray 04/08/17 00:00 IMPRESSION: STABLE APPEARANCE OF THE CHEST STATUS POST LUNG BIOPSY. NO PNEUMOTHORAX IDENTIFIED. Lung Biopsy CT 04/08/17 08:00 IMPRESSION: CT GUIDED BIOPSY OF THE LEFT LUNG MASS PERFORMED WITHOUT IMMEDIATE COMPLICATION. PATHOLOGY PENDING. Head CT 04/15/17 11:30 IMPRESSION: 1. CHRONIC CHANGES OF ATROPHY AND MICROVASCULAR ISCHEMIA. NO ACUTE PROCESS. 2. LEFT MAXILLARY AND SPHENOID SINUS DISEASE. EVIDENCE OF ACUTE STROKE: NO. Assessment & Plan - Diagnosis (1) Acute hypercapnic respiratory failure Is this a current diagnosis for this admission?: Yes Plan: ABG at or near/baseline (2) Lung cancer Qualifiers: Lung location: unspecified part of lung Is this a current diagnosis for this admission?: Yes Plan: 1st dose XRT ok (3) MRSA pneumonia Qualifiers: Laterality: unspecified laterality Lung location: unspecified part of lung Qualified Code(s): J15.212 - Pneumonia due to Methicillin resistant Staphylococcus aureus Is this a current diagnosis for this admission?: Yes
[2017-04-21] MEDS: DOCUSATE SODIUM 100 MG CAPSULE PO SCH (18:43)
--- NOTE | 2017-04-21 21:22 | PDOC PROGRESS REPORT ---
Subjective Progress Note for:: 04/21/17 Subjective:: She was seen by the bedside, she had first dose of radiation treatment today Reason For Visit: ACUTE HYPERCAPNIC RESPIRATORY FAILURE,COPD,HTN Physical Exam Vital Signs: Temp Pulse Resp BP Pulse Ox 97.6 F 88 17 105/60 100 04/21/17 19:40 04/21/17 19:40 04/21/17 19:40 04/21/17 19:40 04/21/17 19:40 Intake & Output 04/20/17 04/21/17 04/22/17 06:59 06:59 06:59 Intake Total 1273 357 610 Balance 1273 357 610 Weight 74.8 kg 73.5 kg Head exam: PRESENT: atraumatic, normocephalic Eye exam: PRESENT: conjunctiva pink, EOMI, PERRLA Ear exam: PRESENT: normal external ear exam Mouth exam: PRESENT: moist, tongue midline Neck exam: PRESENT: full ROM Respiratory exam: PRESENT: decreased breath sounds Cardiovascular exam: PRESENT: RRR, +S1, +S2 Pulses: PRESENT: normal dorsalis pedis pul, +2 pedal pulses bilateral Vascular exam: PRESENT: normal capillary refill GI/Abdominal exam: PRESENT: normal bowel sounds, soft Rectal exam: PRESENT: deferred Neurological exam: PRESENT: alert Psychiatric exam: PRESENT: appropriate affect, normal mood Skin exam: PRESENT: dry, intact, warm. ABSENT: cyanosis, rash Results Laboratory Results: 04/18/17 12:43 04/20/17 09:58 04/20/17 11:45 Carbonic Acid 1.33 HCO3/H2CO3 Ratio 18:1 ABG pH 7.36 ABG pCO2 44.2 ABG pO2 104.0 H ABG HCO3 24.1 ABG O2 Saturation 97.5 ABG Base Excess -1.4 FiO2 30% Impressions: Chest CT 03/28/17 00:00 IMPRESSION: 1. Significant increase in size of pleural-based left lower lobe lung mass now measuring 6.2 cm. This is concerning malignancy. This lesion would be amenable to percutaneous biopsy. 2. Central lobular emphysematous changes. 3. Coronary artery atherosclerosis. This exam was performed according to our departmental dose-optimization program, which includes automated exposure control, adjustment of the mA and/or kV according to patient size and/or use of iterative reconstruction technique. Abdomen/Pelvis CT 04/05/17 00:00 IMPRESSION: No evidence of metastatic disease. Body Scan Nuclear Medicine 04/08/17 00:00 IMPRESSION: AREAS OF ACTIVITY IN THE SPINE WHICH CORRESPOND WITH NUMEROUS WEDGE COMPRESSION DEFORMITIES. NO UNUSUAL ACTIVITY IN THE REMAINDER OF THE SKELETON. Chest X-Ray 04/08/17 00:00 IMPRESSION: STABLE APPEARANCE OF THE CHEST STATUS POST LUNG BIOPSY. NO PNEUMOTHORAX IDENTIFIED. Lung Biopsy CT 04/08/17 08:00 IMPRESSION: CT GUIDED BIOPSY OF THE LEFT LUNG MASS PERFORMED WITHOUT IMMEDIATE COMPLICATION. PATHOLOGY PENDING. Head CT 04/15/17 11:30 IMPRESSION: 1. CHRONIC CHANGES OF ATROPHY AND MICROVASCULAR ISCHEMIA. NO ACUTE PROCESS. 2. LEFT MAXILLARY AND SPHENOID SINUS DISEASE. EVIDENCE OF ACUTE STROKE: NO. Assessment & Plan - Diagnosis (1) Acute hypercapnic respiratory failure Is this a current diagnosis for this admission?: Yes (2) Very severe chronic obstructive pulmonary disease Is this a current diagnosis for this admission?: Yes (3) HTN (hypertension) Qualifiers: Hypertension type: essential hypertension Qualified Code(s): I10 - Essential (primary) hypertension Is this a current diagnosis for this admission?: Yes (4) Malignant neoplasm of lower lobe, left bronchus or lung Is this a current diagnosis for this admission?: Yes (5) Sepsis, polymicrobial Is this a current diagnosis for this admission?: Yes (6) Squamous cell carcinoma of left lung Is this a current diagnosis for this admission?: Yes
[2017-04-21] MEDS: ATORVASTATIN CALCIUM 10 MG TABLET PO SCH (21:23)
[2017-04-21] MEDS: CETIRIZINE 5 MG TABLET PO SCH (21:23)
[2017-04-21] MEDS: MIRTAZAPINE 15 MG TABLET PO SCH (21:23)
[2017-04-22] MEDS: IPRATROPIUM/ALBUTEROL 0.5-2.5 MG/3 ML AMPUL NEB SCH ×5 (03:40→19:31)
[2017-04-22] MEDS: OXYCODONE-ACETAMINOPHEN 5-325 MG TABLET PO PRN (04:14)
[2017-04-22] MEDS: OXYCODONE HCL IR 5 MG TABLET PO PRN (04:15)
[2017-04-22] MEDS: LANSOPRAZOLE 30 MG TAB.RAP.DR PO SCH (05:17)
[2017-04-22] MEDS: BUSPIRONE HCL 10 MG TABLET PO SCH ×3 (05:17→22:05)
[2017-04-22] MEDS: CLONAZEPAM 1 MG TABLET PO SCH ×2 (05:17→17:43)
[2017-04-22] MEDS: PREGABALIN 75 MG CAPSULE PO SCH ×3 (05:17→22:05)
[2017-04-22 08:08] LABS: HEMATOCRIT 29.9 % (36.0-47.0); HEMOGLOBIN 9.5 g/dL (12.0-15.5); MEAN CORPUSCULAR HEMOGLOBIN 27.5 pg (27.0-33.4); MEAN CORPUSCULAR HGB CONC 31.8 g/dL (32.0-36.0); MEAN CORPUSCULAR VOLUME 86 fl (80-97); PLATELET COUNT 342 10^3/uL (150-450); RED BLOOD COUNT 3.47 10^6/uL (3.72-5.28); RED CELL DISTRIBUTION WIDTH 17.1 % (11.5-14.0); WHITE BLOOD COUNT 10.4 10^3/uL (4.0-10.5)
[2017-04-22] MEDS: ENOXAPARIN SODIUM INJ 40 MG/0.4 ML DISP.SYRIN SUBCUT SCH (11:15)
[2017-04-22] MEDS: POLYETHYLENE GLYCOL 3350 POWDER 17 GM/1 PACKET PO SCH (11:15)
[2017-04-22] MEDS: METHOCARBAMOL 500 MG TABLET PO SCH ×2 (11:16→22:06)
[2017-04-22] MEDS: CITALOPRAM HYDROBROMIDE 20 MG TABLET PO SCH (11:16)
[2017-04-22] MEDS: BUDESONIDE/FORMOTEROL 160-4.5 MCG 60 PUFF/6 GM MDI IH SCH ×2 (11:16→22:05)
[2017-04-22] MEDS: MAGNESIUM OXIDE 400 MG TABLET PO SCH (11:17)
[2017-04-22] MEDS: AMLODIPINE BESYLATE 5 MG TABLET PO SCH (11:17)
[2017-04-22] MEDS: PREDNISONE 5 MG TABLET PO SCH (11:17)
[2017-04-22] MEDS: FERROUS SULFATE 325 MG TABLET PO SCH (11:19)
[2017-04-22] MEDS: LOSARTAN POTASSIUM 50 MG TABLET PO SCH (11:19)
[2017-04-22] MEDS: MULTIVITAMIN TABLET PO SCH (11:19)
[2017-04-22] MEDS: TIOTROPIUM BROMIDE DPI 5 CAP/KIT (18 MCG/CAP) IH SCH (11:20)
[2017-04-22] MEDS: MICONAZOLE NITRATE 2% CREAM 15GM TP SCH ×2 (11:20→17:44)
[2017-04-22] MEDS: CLONIDINE HCL 0.1 MG TABLET PO SCH ×2 (11:24→22:00)
[2017-04-22] MEDS: DOCUSATE SODIUM 100 MG CAPSULE PO SCH (17:43)
--- NOTE | 2017-04-22 20:32 | PDOC PROGRESS REPORT ---
Subjective Progress Note for:: 04/22/17 Subjective:: Patient was seen by the bedside, she had second radiation treatment today for the lung cancer, [facility] with radiation, the issue was that the [facility] does not traditionally care for patient on active cancer treatment and we want to ensure that patient does not develop any immediate complication from radiation therapy that would prompt the [facility] to send her back to the hospital for readmission. Reason For Visit: ACUTE HYPERCAPNIC RESPIRATORY FAILURE,COPD,HTN Physical Exam Vital Signs: Temp Pulse Resp BP Pulse Ox 98.0 F 86 18 125/74 98 04/22/17 14:56 04/22/17 19:33 04/22/17 19:33 04/22/17 14:56 04/22/17 19:33 Intake & Output 04/21/17 04/22/17 04/23/17 06:59 06:59 06:59 Intake Total 357 613 460 Balance 357 613 460 Weight 73.5 kg 71.4 kg General appearance: PRESENT: no acute distress Eye exam: PRESENT: PERRLA Respiratory exam: PRESENT: crackles, wheezes Cardiovascular exam: PRESENT: +S1, +S2 GI/Abdominal exam: PRESENT: soft Neurological exam: PRESENT: alert Results Laboratory Results: 04/22/17 07:52 04/20/17 09:58 04/22/17 07:52 WBC 10.4 RBC 3.47 L Hgb 9.5 L Hct 29.9 L MCV 86 MCH 27.5 MCHC 31.8 L RDW 17.1 H Plt Count 342 Impressions: Chest CT 03/28/17 00:00 IMPRESSION: 1. Significant increase in size of pleural-based left lower lobe lung mass now measuring 6.2 cm. This is concerning malignancy. This lesion would be amenable to percutaneous biopsy. 2. Central lobular emphysematous changes. 3. Coronary artery atherosclerosis. This exam was performed according to our departmental dose-optimization program, which includes automated exposure control, adjustment of the mA and/or kV according to patient size and/or use of iterative reconstruction technique. Abdomen/Pelvis CT 04/05/17 00:00 IMPRESSION: No evidence of metastatic disease. Body Scan Nuclear Medicine 04/08/17 00:00 IMPRESSION: AREAS OF ACTIVITY IN THE SPINE WHICH CORRESPOND WITH NUMEROUS WEDGE COMPRESSION DEFORMITIES. NO UNUSUAL ACTIVITY IN THE REMAINDER OF THE SKELETON. Chest X-Ray 04/08/17 00:00 IMPRESSION: STABLE APPEARANCE OF THE CHEST STATUS POST LUNG BIOPSY. NO PNEUMOTHORAX IDENTIFIED. Lung Biopsy CT 04/08/17 08:00 IMPRESSION: CT GUIDED BIOPSY OF THE LEFT LUNG MASS PERFORMED WITHOUT IMMEDIATE COMPLICATION. PATHOLOGY PENDING. Head CT 04/15/17 11:30 IMPRESSION: 1. CHRONIC CHANGES OF ATROPHY AND MICROVASCULAR ISCHEMIA. NO ACUTE PROCESS. 2. LEFT MAXILLARY AND SPHENOID SINUS DISEASE. EVIDENCE OF ACUTE STROKE: NO. Assessment & Plan - Diagnosis (1) Acute hypercapnic respiratory failure Is this a current diagnosis for this admission?: Yes (2) Very severe chronic obstructive pulmonary disease Is this a current diagnosis for this admission?: Yes (3) HTN (hypertension) Qualifiers: Hypertension type: essential hypertension Qualified Code(s): I10 - Essential (primary) hypertension Is this a current diagnosis for this admission?: Yes (4) Malignant neoplasm of lower lobe, left bronchus or lung Is this a current diagnosis for this admission?: Yes (5) Sepsis, polymicrobial Is this a current diagnosis for this admission?: Yes (6) Squamous cell carcinoma of left lung Is this a current diagnosis for this admission?: Yes
[2017-04-22] MEDS: MIRTAZAPINE 15 MG TABLET PO SCH (22:05)
[2017-04-22] MEDS: ATORVASTATIN CALCIUM 10 MG TABLET PO SCH (22:05)
[2017-04-22] MEDS: CETIRIZINE 5 MG TABLET PO SCH (22:05)
[2017-04-23] MEDS: IPRATROPIUM/ALBUTEROL 0.5-2.5 MG/3 ML AMPUL NEB SCH ×7 (04:00→23:55)
[2017-04-23] MEDS: PREGABALIN 75 MG CAPSULE PO SCH ×3 (05:34→22:27)
[2017-04-23] MEDS: CLONAZEPAM 1 MG TABLET PO SCH ×2 (05:34→19:25)
[2017-04-23] MEDS: BUSPIRONE HCL 10 MG TABLET PO SCH ×3 (05:34→22:27)
[2017-04-23] MEDS: LANSOPRAZOLE 30 MG TAB.RAP.DR PO SCH (05:34)
[2017-04-23] MEDS: METHOCARBAMOL 500 MG TABLET PO SCH ×2 (09:50→22:27)
[2017-04-23] MEDS: ENOXAPARIN SODIUM INJ 40 MG/0.4 ML DISP.SYRIN SUBCUT SCH (09:50)
[2017-04-23] MEDS: PREDNISONE 5 MG TABLET PO SCH (09:50)
[2017-04-23] MEDS: AMLODIPINE BESYLATE 5 MG TABLET PO SCH (09:50)
[2017-04-23] MEDS: POLYETHYLENE GLYCOL 3350 POWDER 17 GM/1 PACKET PO SCH (09:51)
[2017-04-23] MEDS: MAGNESIUM OXIDE 400 MG TABLET PO SCH (09:51)
[2017-04-23] MEDS: CLONIDINE HCL 0.1 MG TABLET PO SCH ×2 (09:51→22:27)
[2017-04-23] MEDS: LOSARTAN POTASSIUM 50 MG TABLET PO SCH (09:51)
[2017-04-23] MEDS: MICONAZOLE NITRATE 2% CREAM 15GM TP SCH ×2 (09:51→19:25)
[2017-04-23] MEDS: CITALOPRAM HYDROBROMIDE 20 MG TABLET PO SCH (09:51)
[2017-04-23] MEDS: TIOTROPIUM BROMIDE DPI 5 CAP/KIT (18 MCG/CAP) IH SCH (09:54)
[2017-04-23] MEDS: BUDESONIDE/FORMOTEROL 160-4.5 MCG 60 PUFF/6 GM MDI IH SCH ×2 (09:54→22:27)
[2017-04-23] MEDS: MULTIVITAMIN TABLET PO SCH (12:00)
[2017-04-23] MEDS: FERROUS SULFATE 325 MG TABLET PO SCH (12:00)
[2017-04-23] MEDS: OXYCODONE HCL IR 5 MG TABLET PO PRN (13:00)
[2017-04-23] MEDS: OXYCODONE-ACETAMINOPHEN 5-325 MG TABLET PO PRN (13:00)
[2017-04-23] MEDS: DOCUSATE SODIUM 100 MG CAPSULE PO SCH (19:25)
--- NOTE | 2017-04-23 20:39 | PDOC PROGRESS REPORT ---
Subjective Progress Note for:: 04/23/17 Subjective:: Patient was seen by the bedside, she had second radiation treatment today for the lung cancer, the plan is [facility] to [facility] to [facility] after couple of treatments with radiation, the issue was that the [facility] does not traditionally care for patient on active cancer treatment and we want to ensure that patient does not develop any immediate complication from radiation therapy that would prompt the [facility] to send her back to the hospital for readmission. Reason For Visit: ACUTE HYPERCAPNIC RESPIRATORY FAILURE,COPD,HTN Physical Exam Vital Signs: Temp Pulse Resp BP Pulse Ox 98.2 F 94 18 117/73 98 04/23/17 15:03 04/23/17 19:32 04/23/17 19:32 04/23/17 11:50 04/23/17 19:32 Intake & Output 04/22/17 04/23/17 04/24/17 06:59 06:59 06:59 Intake Total 613 763 760 Balance 613 763 760 Weight 71.4 kg 84.9 kg General appearance: PRESENT: no acute distress Eye exam: PRESENT: PERRLA Respiratory exam: PRESENT: decreased breath sounds Cardiovascular exam: PRESENT: +S1, +S2 GI/Abdominal exam: PRESENT: soft Results Laboratory Results: 04/22/17 07:52 04/20/17 09:58 Impressions: Chest CT 03/28/17 00:00 IMPRESSION: 1. Significant increase in size of pleural-based left lower lobe lung mass now measuring 6.2 cm. This is concerning malignancy. This lesion would be amenable to percutaneous biopsy. 2. Central lobular emphysematous changes. 3. Coronary artery atherosclerosis. This exam was performed according to our departmental dose-optimization program, which includes automated exposure control, adjustment of the mA and/or kV according to patient size and/or use of iterative reconstruction technique. Abdomen/Pelvis CT 04/05/17 00:00 IMPRESSION: No evidence of metastatic disease. Body Scan Nuclear Medicine 04/08/17 00:00 IMPRESSION: AREAS OF ACTIVITY IN THE SPINE WHICH CORRESPOND WITH NUMEROUS WEDGE COMPRESSION DEFORMITIES. NO UNUSUAL ACTIVITY IN THE REMAINDER OF THE SKELETON. Chest X-Ray 04/08/17 00:00 IMPRESSION: STABLE APPEARANCE OF THE CHEST STATUS POST LUNG BIOPSY. NO PNEUMOTHORAX IDENTIFIED. Lung Biopsy CT 04/08/17 08:00 IMPRESSION: CT GUIDED BIOPSY OF THE LEFT LUNG MASS PERFORMED WITHOUT IMMEDIATE COMPLICATION. PATHOLOGY PENDING. Head CT 04/15/17 11:30 IMPRESSION: 1. CHRONIC CHANGES OF ATROPHY AND MICROVASCULAR ISCHEMIA. NO ACUTE PROCESS. 2. LEFT MAXILLARY AND SPHENOID SINUS DISEASE. EVIDENCE OF ACUTE STROKE: NO. Assessment & Plan - Diagnosis (1) Acute hypercapnic respiratory failure Is this a current diagnosis for this admission?: Yes (2) Very severe chronic obstructive pulmonary disease Is this a current diagnosis for this admission?: Yes (3) HTN (hypertension) Qualifiers: Hypertension type: essential hypertension Qualified Code(s): I10 - Essential (primary) hypertension Is this a current diagnosis for this admission?: Yes (4) Malignant neoplasm of lower lobe, left bronchus or lung Is this a current diagnosis for this admission?: Yes (5) Sepsis, polymicrobial Is this a current diagnosis for this admission?: Yes (6) Squamous cell carcinoma of left lung Is this a current diagnosis for this admission?: Yes
[2017-04-23] MEDS: ATORVASTATIN CALCIUM 10 MG TABLET PO SCH (22:27)
[2017-04-23] MEDS: MIRTAZAPINE 15 MG TABLET PO SCH (22:27)
[2017-04-23] MEDS: CETIRIZINE 5 MG TABLET PO SCH (22:27)
[2017-04-24] MEDS: IPRATROPIUM/ALBUTEROL 0.5-2.5 MG/3 ML AMPUL NEB SCH ×5 (04:26→19:42)
[2017-04-24] MEDS: LANSOPRAZOLE 30 MG TAB.RAP.DR PO SCH (06:10)
[2017-04-24] MEDS: PREGABALIN 75 MG CAPSULE PO SCH ×3 (06:10→22:12)
[2017-04-24] MEDS: CLONAZEPAM 1 MG TABLET PO SCH ×2 (06:10→17:38)
[2017-04-24] MEDS: BUSPIRONE HCL 10 MG TABLET PO SCH ×3 (06:10→22:12)
[2017-04-24] MEDS: ENOXAPARIN SODIUM INJ 40 MG/0.4 ML DISP.SYRIN SUBCUT SCH (09:25)
[2017-04-24] MEDS: BUDESONIDE/FORMOTEROL 160-4.5 MCG 60 PUFF/6 GM MDI IH SCH ×2 (09:27→22:12)
[2017-04-24] MEDS: CITALOPRAM HYDROBROMIDE 20 MG TABLET PO SCH (09:27)
[2017-04-24] MEDS: METHOCARBAMOL 500 MG TABLET PO SCH ×2 (09:28→22:12)
[2017-04-24] MEDS: MAGNESIUM OXIDE 400 MG TABLET PO SCH (09:28)
[2017-04-24] MEDS: PREDNISONE 5 MG TABLET PO SCH (09:28)
[2017-04-24] MEDS: POLYETHYLENE GLYCOL 3350 POWDER 17 GM/1 PACKET PO SCH (09:29)
[2017-04-24] MEDS: MICONAZOLE NITRATE 2% CREAM 15GM TP SCH ×2 (09:30→17:38)
[2017-04-24] MEDS: TIOTROPIUM BROMIDE DPI 5 CAP/KIT (18 MCG/CAP) IH SCH (09:30)
[2017-04-24] MEDS: AMLODIPINE BESYLATE 5 MG TABLET PO SCH (09:33)
[2017-04-24] MEDS: CLONIDINE HCL 0.1 MG TABLET PO SCH ×2 (09:33→22:10)
[2017-04-24] MEDS: LOSARTAN POTASSIUM 50 MG TABLET PO SCH (09:33)
[2017-04-24] MEDS: OXYCODONE-ACETAMINOPHEN 5-325 MG TABLET PO PRN ×2 (11:50→20:38)
[2017-04-24] MEDS: MULTIVITAMIN TABLET PO SCH (11:50)
[2017-04-24] MEDS: FERROUS SULFATE 325 MG TABLET PO SCH (11:50)
[2017-04-24] MEDS: OXYCODONE HCL IR 5 MG TABLET PO PRN (11:51)
[2017-04-24] MEDS: LEVALBUTEROL HCL NEB 0.63 MG/3 ML AMPUL NEB PRN (14:42)
[2017-04-24] MEDS: DOCUSATE SODIUM 100 MG CAPSULE PO SCH (17:37)
[2017-04-24] MEDS: MIRTAZAPINE 15 MG TABLET PO SCH (22:12)
[2017-04-24] MEDS: ATORVASTATIN CALCIUM 10 MG TABLET PO SCH (22:12)
[2017-04-24] MEDS: CETIRIZINE 5 MG TABLET PO SCH (22:12)
--- NOTE | 2017-04-24 22:25 | PDOC PROGRESS REPORT ---
Subjective Progress Note for:: 04/24/17 Subjective:: Patient was very anxious she missed radiation treatment today, the plan ultimately is to transfer to [facility] for [facility] of care Reason For Visit: ACUTE HYPERCAPNIC RESPIRATORY FAILURE,COPD,HTN Physical Exam Vital Signs: Temp Pulse Resp BP Pulse Ox 98.3 F 97 17 114/68 97 04/24/17 15:59 04/24/17 19:42 04/24/17 19:42 04/24/17 15:59 04/24/17 19:42 Intake & Output 04/23/17 04/24/17 04/25/17 06:59 06:59 06:59 Intake Total 763 763 700 Output Total 275 Balance 763 488 700 Weight 84.9 kg 72.2 kg General appearance: PRESENT: mild distress Head exam: PRESENT: atraumatic, normocephalic Eye exam: PRESENT: PERRLA. ABSENT: scleral icterus Neck exam: PRESENT: full ROM Respiratory exam: PRESENT: rhonchi Cardiovascular exam: PRESENT: RRR, +S1, +S2 Vascular exam: PRESENT: normal capillary refill GI/Abdominal exam: PRESENT: normal bowel sounds, soft Rectal exam: PRESENT: deferred Neurological exam: PRESENT: alert Psychiatric exam: PRESENT: appropriate affect, normal mood Skin exam: PRESENT: dry, intact, warm Results Laboratory Results: 04/22/17 07:52 04/20/17 09:58 Impressions: Chest CT 03/28/17 00:00 IMPRESSION: 1. Significant increase in size of pleural-based left lower lobe lung mass now measuring 6.2 cm. This is concerning malignancy. This lesion would be amenable to percutaneous biopsy. 2. Central lobular emphysematous changes. 3. Coronary artery atherosclerosis. This exam was performed according to our departmental dose-optimization program, which includes automated exposure control, adjustment of the mA and/or kV according to patient size and/or use of iterative reconstruction technique. Abdomen/Pelvis CT 04/05/17 00:00 IMPRESSION: No evidence of metastatic disease. Body Scan Nuclear Medicine 04/08/17 00:00 IMPRESSION: AREAS OF ACTIVITY IN THE SPINE WHICH CORRESPOND WITH NUMEROUS WEDGE COMPRESSION DEFORMITIES. NO UNUSUAL ACTIVITY IN THE REMAINDER OF THE SKELETON. Chest X-Ray 04/08/17 00:00 IMPRESSION: STABLE APPEARANCE OF THE CHEST STATUS POST LUNG BIOPSY. NO PNEUMOTHORAX IDENTIFIED. Lung Biopsy CT 12/26/17 08:00 IMPRESSION: CT GUIDED BIOPSY OF THE LEFT LUNG MASS PERFORMED WITHOUT IMMEDIATE COMPLICATION. PATHOLOGY PENDING. Head CT 04/15/17 11:30 IMPRESSION: 1. CHRONIC CHANGES OF ATROPHY AND MICROVASCULAR ISCHEMIA. NO ACUTE PROCESS. 2. LEFT MAXILLARY AND SPHENOID SINUS DISEASE. EVIDENCE OF ACUTE STROKE: NO. Assessment & Plan - Diagnosis (1) Acute hypercapnic respiratory failure Is this a current diagnosis for this admission?: Yes (2) Very severe chronic obstructive pulmonary disease Is this a current diagnosis for this admission?: Yes (3) HTN (hypertension) Qualifiers: Hypertension type: essential hypertension Qualified Code(s): I10 - Essential (primary) hypertension Is this a current diagnosis for this admission?: Yes (4) Malignant neoplasm of lower lobe, left bronchus or lung Is this a current diagnosis for this admission?: Yes (5) Sepsis, polymicrobial Is this a current diagnosis for this admission?: Yes (6) Squamous cell carcinoma of left lung Is this a current diagnosis for this admission?: Yes
[2017-04-25] MEDS: IPRATROPIUM/ALBUTEROL 0.5-2.5 MG/3 ML AMPUL NEB SCH ×6 (00:01→19:51)
[2017-04-25] MEDS: PREGABALIN 75 MG CAPSULE PO SCH ×3 (05:40→22:01)
[2017-04-25] MEDS: BUSPIRONE HCL 10 MG TABLET PO SCH ×3 (05:40→22:01)
[2017-04-25] MEDS: LANSOPRAZOLE 30 MG TAB.RAP.DR PO SCH (05:40)
[2017-04-25] MEDS: CLONAZEPAM 1 MG TABLET PO SCH ×2 (05:41→17:29)
[2017-04-25 06:53] LABS: HEMOGLOBIN 9.8 g/dL (12.0-15.5); MEAN CORPUSCULAR HEMOGLOBIN 27.5 pg (27.0-33.4); MEAN CORPUSCULAR HGB CONC 31.6 g/dL (32.0-36.0); MEAN CORPUSCULAR VOLUME 87 fl (80-97); PLATELET COUNT 311 10^3/uL (150-450); RED BLOOD COUNT 3.57 10^6/uL (3.72-5.28); RED CELL DISTRIBUTION WIDTH 17.3 % (11.5-14.0); WHITE BLOOD COUNT 8.6 10^3/uL (4.0-10.5)
[2017-04-25 07:18] LABS: ALANINE AMINOTRANSFERASE 17 U/L (9-52); ALBUMIN 3.2 g/dL (3.5-5.0); ALKALINE PHOSPHATASE 73 U/L (38-126); ANION GAP 13 (5-19); ASPARTATE AMINO TRANSFERASE 16 U/L (14-36); BILIRUBIN,DIRECT 0.2 mg/dL (0.0-0.4); BILIRUBIN,TOTAL 0.2 mg/dL (0.2-1.3); BLOOD UREA NITROGEN 29 mg/dL (7-20); CALCIUM 9.7 mg/dL (8.4-10.2); CARBON DIOXIDE 27 mmol/L (22-30); CHLORIDE 107 mmol/L (98-107); GLUCOSE 74 mg/dL (75-110); MAGNESIUM 2.3 mg/dL (1.6-2.3); POTASSIUM 4.2 mmol/L (3.6-5.0); SODIUM 147.4 mmol/L (137-145); TOTAL PROTEIN 6.1 g/dL (6.3-8.2)
[2017-04-25] MEDS: ENOXAPARIN SODIUM INJ 40 MG/0.4 ML DISP.SYRIN SUBCUT SCH (09:18)
[2017-04-25] MEDS: BUDESONIDE/FORMOTEROL 160-4.5 MCG 60 PUFF/6 GM MDI IH SCH ×2 (09:19→22:01)
[2017-04-25] MEDS: POLYETHYLENE GLYCOL 3350 POWDER 17 GM/1 PACKET PO SCH (09:19)
[2017-04-25] MEDS: TIOTROPIUM BROMIDE DPI 5 CAP/KIT (18 MCG/CAP) IH SCH (09:20)
[2017-04-25] MEDS: PREDNISONE 5 MG TABLET PO SCH (09:22)
[2017-04-25] MEDS: CITALOPRAM HYDROBROMIDE 20 MG TABLET PO SCH (09:22)
[2017-04-25] MEDS: MICONAZOLE NITRATE 2% CREAM 15GM TP SCH ×2 (09:22→17:30)
[2017-04-25] MEDS: METHOCARBAMOL 500 MG TABLET PO SCH ×2 (09:22→22:01)
[2017-04-25] MEDS: MAGNESIUM OXIDE 400 MG TABLET PO SCH (09:22)
[2017-04-25] MEDS: AMLODIPINE BESYLATE 5 MG TABLET PO SCH (09:25)
[2017-04-25] MEDS: LOSARTAN POTASSIUM 50 MG TABLET PO SCH (09:28)
[2017-04-25] MEDS: CLONIDINE HCL 0.1 MG TABLET PO SCH ×2 (09:31→22:04)
[2017-04-25] MEDS: FERROUS SULFATE 325 MG TABLET PO SCH (13:07)
[2017-04-25] MEDS: MULTIVITAMIN TABLET PO SCH (13:07)
[2017-04-25] MEDS: OXYCODONE-ACETAMINOPHEN 5-325 MG TABLET PO PRN (13:08)
[2017-04-25] MEDS: OXYCODONE HCL IR 5 MG TABLET PO PRN (13:08)
[2017-04-25] MEDS: DOCUSATE SODIUM 100 MG CAPSULE PO SCH (17:28)
[2017-04-25] MEDS: MIRTAZAPINE 15 MG TABLET PO SCH (22:01)
[2017-04-25] MEDS: ATORVASTATIN CALCIUM 10 MG TABLET PO SCH (22:01)
[2017-04-25] MEDS: CETIRIZINE 5 MG TABLET PO SCH (22:01)
--- NOTE | 2017-04-25 23:57 | PDOC PROGRESS REPORT ---
Subjective Progress Note for:: 04/25/17 Subjective:: She had radiation treatment today, there was concern for urinary retention, a straight catheter was inserted. Reason For Visit: ACUTE HYPERCAPNIC RESPIRATORY FAILURE,COPD,HTN Physical Exam Vital Signs: Temp Pulse Resp BP Pulse Ox 98.5 F 104 H 20 97/46 L 96 04/25/17 19:37 04/25/17 19:51 04/25/17 19:51 04/25/17 19:37 04/25/17 19:51 Intake & Output 04/24/17 04/25/17 04/26/17 06:59 06:59 06:59 Intake Total 763 803 510 Output Total 275 Balance 488 803 510 Weight 72.2 kg 72 kg General appearance: PRESENT: mild distress Eye exam: PRESENT: PERRLA Respiratory exam: PRESENT: rhonchi Cardiovascular exam: PRESENT: +S1, +S2 GI/Abdominal exam: PRESENT: soft Neurological exam: PRESENT: alert Results Laboratory Results: 04/25/17 05:45 04/25/17 05:45 04/25/17 04/25/17 05:45 05:45 WBC 8.6 RBC 3.57 L Hgb 9.8 L Hct 31.0 L MCV 87 MCH 27.5 MCHC 31.6 L RDW 17.3 H Plt Count 311 Sodium 147.4 H Potassium 4.2 Chloride 107 Carbon Dioxide 27 Anion Gap 13 BUN 29 H Creatinine 0.84 Est GFR ( Amer) > 60 Est GFR (Non-Af Amer) > 60 Glucose 74 L Calcium 9.7 Magnesium 2.3 Total Bilirubin 0.2 AST 16 ALT 17 Alkaline Phosphatase 73 Total Protein 6.1 L Albumin 3.2 L Impressions: Chest CT 03/28/17 00:00 IMPRESSION: 1. Significant increase in size of pleural-based left lower lobe lung mass now measuring 6.2 cm. This is concerning malignancy. This lesion would be amenable to percutaneous biopsy. 2. Central lobular emphysematous changes. 3. Coronary artery atherosclerosis. This exam was performed according to our departmental dose-optimization program, which includes automated exposure control, adjustment of the mA and/or kV according to patient size and/or use of iterative reconstruction technique. Abdomen/Pelvis CT 04/05/17 00:00 IMPRESSION: No evidence of metastatic disease. Body Scan Nuclear Medicine 04/08/17 00:00 IMPRESSION: AREAS OF ACTIVITY IN THE SPINE WHICH CORRESPOND WITH NUMEROUS WEDGE COMPRESSION DEFORMITIES. NO UNUSUAL ACTIVITY IN THE REMAINDER OF THE SKELETON. Chest X-Ray 04/08/17 00:00 IMPRESSION: STABLE APPEARANCE OF THE CHEST STATUS POST LUNG BIOPSY. NO PNEUMOTHORAX IDENTIFIED. Lung Biopsy CT 04/08/17 08:00 IMPRESSION: CT GUIDED BIOPSY OF THE LEFT LUNG MASS PERFORMED WITHOUT IMMEDIATE COMPLICATION. PATHOLOGY PENDING. Head CT 04/15/17 11:30 IMPRESSION: 1. CHRONIC CHANGES OF ATROPHY AND MICROVASCULAR ISCHEMIA. NO ACUTE PROCESS. 2. LEFT MAXILLARY AND SPHENOID SINUS DISEASE. EVIDENCE OF ACUTE STROKE: NO. Assessment & Plan - Diagnosis (1) Acute hypercapnic respiratory failure Is this a current diagnosis for this admission?: Yes (2) Very severe chronic obstructive pulmonary disease Is this a current diagnosis for this admission?: Yes (3) HTN (hypertension) Qualifiers: Hypertension type: essential hypertension Qualified Code(s): I10 - Essential (primary) hypertension Is this a current diagnosis for this admission?: Yes (4) Malignant neoplasm of lower lobe, left bronchus or lung Is this a current diagnosis for this admission?: Yes (5) Sepsis, polymicrobial Is this a current diagnosis for this admission?: Yes (6) Squamous cell carcinoma of left lung Is this a current diagnosis for this admission?: Yes
[2017-04-26] MEDS: IPRATROPIUM/ALBUTEROL 0.5-2.5 MG/3 ML AMPUL NEB SCH ×6 (00:09→19:50)
[2017-04-26] MEDS: BUSPIRONE HCL 10 MG TABLET PO SCH ×3 (05:36→22:10)
[2017-04-26] MEDS: PREGABALIN 75 MG CAPSULE PO SCH ×3 (05:36→22:10)
[2017-04-26] MEDS: LANSOPRAZOLE 30 MG TAB.RAP.DR PO SCH (05:36)
[2017-04-26] MEDS: CLONAZEPAM 1 MG TABLET PO SCH ×2 (05:36→17:24)
[2017-04-26] MEDS: ENOXAPARIN SODIUM INJ 40 MG/0.4 ML DISP.SYRIN SUBCUT SCH (10:58)
[2017-04-26] MEDS: POLYETHYLENE GLYCOL 3350 POWDER 17 GM/1 PACKET PO SCH (10:59)
[2017-04-26] MEDS: CITALOPRAM HYDROBROMIDE 20 MG TABLET PO SCH (10:59)
[2017-04-26] MEDS: METHOCARBAMOL 500 MG TABLET PO SCH ×2 (10:59→22:09)
[2017-04-26] MEDS: CLONIDINE HCL 0.1 MG TABLET PO SCH ×2 (11:00→22:11)
[2017-04-26] MEDS: PREDNISONE 5 MG TABLET PO SCH (11:00)
[2017-04-26] MEDS: LOSARTAN POTASSIUM 50 MG TABLET PO SCH (11:00)
[2017-04-26] MEDS: AMLODIPINE BESYLATE 5 MG TABLET PO SCH (11:01)
[2017-04-26] MEDS: BUDESONIDE/FORMOTEROL 160-4.5 MCG 60 PUFF/6 GM MDI IH SCH ×2 (11:02→22:10)
[2017-04-26] MEDS: MAGNESIUM OXIDE 400 MG TABLET PO SCH (11:02)
[2017-04-26] MEDS: MULTIVITAMIN TABLET PO SCH (11:07)
[2017-04-26] MEDS: FERROUS SULFATE 325 MG TABLET PO SCH (11:07)
[2017-04-26] MEDS: MICONAZOLE NITRATE 2% CREAM 15GM TP SCH ×2 (12:29→17:26)
[2017-04-26] MEDS: TIOTROPIUM BROMIDE DPI 5 CAP/KIT (18 MCG/CAP) IH SCH (12:29)
--- NOTE | 2017-04-26 12:29 | PDOC PROGRESS REPORT ---
Subjective Progress Note for:: 04/26/17 Subjective:: Patient was seen by the bedside still on positive pressure ventilation, a BiPAP Reason For Visit: ACUTE HYPERCAPNIC RESPIRATORY FAILURE,COPD,HTN Physical Exam Vital Signs: Temp Pulse Resp BP Pulse Ox 97.8 F 110 H 18 128/79 H 98 04/26/17 07:47 04/26/17 11:45 04/26/17 11:45 04/26/17 07:47 04/26/17 11:45 Intake & Output 04/25/17 04/26/17 04/27/17 06:59 06:59 06:59 Intake Total 803 510 Output Total 0 700 Balance 803 510 -700 Weight 72 kg 73.8 kg General appearance: PRESENT: mild distress Head exam: PRESENT: atraumatic, normocephalic Ear exam: PRESENT: normal external ear exam Mouth exam: PRESENT: moist, tongue midline Neck exam: PRESENT: full ROM Respiratory exam: PRESENT: rhonchi Cardiovascular exam: PRESENT: RRR Pulses: PRESENT: normal dorsalis pedis pul, +2 pedal pulses bilateral Vascular exam: PRESENT: normal capillary refill GI/Abdominal exam: PRESENT: normal bowel sounds, soft Rectal exam: PRESENT: deferred Neurological exam: PRESENT: alert, awake, oriented to person, oriented to place , oriented to time, oriented to situation, CN II-XII grossly intact Psychiatric exam: PRESENT: appropriate affect, normal mood Skin exam: PRESENT: dry, intact, warm Results Laboratory Results: 04/25/17 05:45 04/25/17 05:45 Impressions: Chest CT 03/28/17 00:00 IMPRESSION: 1. Significant increase in size of pleural-based left lower lobe lung mass now measuring 6.2 cm. This is concerning malignancy. This lesion would be amenable to percutaneous biopsy. 2. Central lobular emphysematous changes. 3. Coronary artery atherosclerosis. This exam was performed according to our departmental dose-optimization program, which includes automated exposure control, adjustment of the mA and/or kV according to patient size and/or use of iterative reconstruction technique. Abdomen/Pelvis CT 04/05/17 00:00 IMPRESSION: No evidence of metastatic disease. Body Scan Nuclear Medicine 04/08/17 00:00 IMPRESSION: AREAS OF ACTIVITY IN THE SPINE WHICH CORRESPOND WITH NUMEROUS WEDGE COMPRESSION DEFORMITIES. NO UNUSUAL ACTIVITY IN THE REMAINDER OF THE SKELETON. Chest X-Ray 04/08/17 00:00 IMPRESSION: STABLE APPEARANCE OF THE CHEST STATUS POST LUNG BIOPSY. NO PNEUMOTHORAX IDENTIFIED. Lung Biopsy CT 04/08/17 08:00 IMPRESSION: CT GUIDED BIOPSY OF THE LEFT LUNG MASS PERFORMED WITHOUT IMMEDIATE COMPLICATION. PATHOLOGY PENDING. Head CT 04/15/17 11:30 IMPRESSION: 1. CHRONIC CHANGES OF ATROPHY AND MICROVASCULAR ISCHEMIA. NO ACUTE PROCESS. 2. LEFT MAXILLARY AND SPHENOID SINUS DISEASE. EVIDENCE OF ACUTE STROKE: NO. Assessment & Plan - Diagnosis (1) Acute hypercapnic respiratory failure Is this a current diagnosis for this admission?: Yes (2) Very severe chronic obstructive pulmonary disease Is this a current diagnosis for this admission?: Yes (3) HTN (hypertension) Qualifiers: Hypertension type: essential hypertension Qualified Code(s): I10 - Essential (primary) hypertension Is this a current diagnosis for this admission?: Yes (4) Malignant neoplasm of lower lobe, left bronchus or lung Is this a current diagnosis for this admission?: Yes (5) Sepsis, polymicrobial Is this a current diagnosis for this admission?: Yes (6) Squamous cell carcinoma of left lung Is this a current diagnosis for this admission?: Yes
[2017-04-26] MEDS ORDERED: BISACODYL 10 MG SUPP.RECT PR ONE (16:00)
[2017-04-26] MEDS: OXYCODONE-ACETAMINOPHEN 5-325 MG TABLET PO PRN (17:24)
[2017-04-26] MEDS: DOCUSATE SODIUM 100 MG CAPSULE PO SCH (17:24)
[2017-04-26] MEDS: OXYCODONE HCL IR 5 MG TABLET PO PRN (17:25)
[2017-04-26] MEDS: CETIRIZINE 5 MG TABLET PO SCH (22:09)
[2017-04-26] MEDS: MIRTAZAPINE 15 MG TABLET PO SCH (22:10)
[2017-04-26] MEDS: ATORVASTATIN CALCIUM 10 MG TABLET PO SCH (22:10)
[2017-04-27] MEDS: IPRATROPIUM/ALBUTEROL 0.5-2.5 MG/3 ML AMPUL NEB SCH ×5 (00:05→15:21)
[2017-04-27] MEDS: LANSOPRAZOLE 30 MG TAB.RAP.DR PO SCH (05:02)
[2017-04-27] MEDS: BUSPIRONE HCL 10 MG TABLET PO SCH ×2 (05:02→13:56)
[2017-04-27] MEDS: OXYCODONE-ACETAMINOPHEN 5-325 MG TABLET PO PRN ×2 (05:02→14:58)
[2017-04-27] MEDS: OXYCODONE HCL IR 5 MG TABLET PO PRN ×2 (05:02→14:58)
[2017-04-27] MEDS: PREGABALIN 75 MG CAPSULE PO SCH ×2 (05:02→13:56)
[2017-04-27] MEDS: CLONAZEPAM 1 MG TABLET PO SCH (05:02)
[2017-04-27] MEDS: CITALOPRAM HYDROBROMIDE 20 MG TABLET PO SCH (10:17)
[2017-04-27] MEDS: AMLODIPINE BESYLATE 5 MG TABLET PO SCH (10:17)
[2017-04-27] MEDS: LOSARTAN POTASSIUM 50 MG TABLET PO SCH (10:19)
[2017-04-27] MEDS: CLONIDINE HCL 0.1 MG TABLET PO SCH (10:19)
[2017-04-27] MEDS: MAGNESIUM OXIDE 400 MG TABLET PO SCH (10:19)
[2017-04-27] MEDS: METHOCARBAMOL 500 MG TABLET PO SCH (10:19)
[2017-04-27] MEDS: POLYETHYLENE GLYCOL 3350 POWDER 17 GM/1 PACKET PO SCH (10:20)
[2017-04-27] MEDS: PREDNISONE 5 MG TABLET PO SCH (10:20)
[2017-04-27] MEDS: BUDESONIDE/FORMOTEROL 160-4.5 MCG 60 PUFF/6 GM MDI IH SCH (10:21)
[2017-04-27] MEDS: ENOXAPARIN SODIUM INJ 40 MG/0.4 ML DISP.SYRIN SUBCUT SCH (10:21)
[2017-04-27] MEDS: TIOTROPIUM BROMIDE DPI 5 CAP/KIT (18 MCG/CAP) IH SCH (10:24)
[2017-04-27] MEDS: MICONAZOLE NITRATE 2% CREAM 15GM TP SCH (10:28)
[2017-04-27] MEDS: FERROUS SULFATE 325 MG TABLET PO SCH (12:29)
[2017-04-27] MEDS: MULTIVITAMIN TABLET PO SCH (12:30)
[2017-04-27 12:40] VITALS: BP 94/62
--- NOTE | 2017-04-27 14:35 | PDOC TRANSFER SUMMARY ---
General - Admit/Disc Date/PCP Admission Date/Primary Care Provider: 03/28/17 11:49 NATACHA ENGLAND MD Discharge Date: 04/27/17 - Discharge Diagnosis (1) Acute hypercapnic respiratory failure Is this a current diagnosis for this admission?: Yes (2) Very severe chronic obstructive pulmonary disease Is this a current diagnosis for this admission?: Yes (3) HTN (hypertension) Is this a current diagnosis for this admission?: Yes (4) Malignant neoplasm of lower lobe, left bronchus or lung Is this a current diagnosis for this admission?: Yes (5) Sepsis, polymicrobial Is this a current diagnosis for this admission?: Yes (6) Squamous cell carcinoma of left lung Is this a current diagnosis for this admission?: Yes (7) Staphylococcus aureus pneumonia Is this a current diagnosis for this admission?: Yes (8) Proteus pneumonia Is this a current diagnosis for this admission?: Yes (9) Sepsis due to pneumonia Is this a current diagnosis for this admission?: Yes - Additional Information Resuscitation Status: Full Code Discharge Diet: Regular Discharge Activity: Supervised Activity Prescriptions: Clonazepam [Klonopin 1 mg Tablet] 0.5 mg PO Q12A #60 tablet Levalbuterol HCl [Xopenex Neb 0.63 mg/3 ml Ampul] 0.63 mg NEB RTQ4HP PRN #120 vial.neb PRN Reason: Home Medications: Methocarbamol [Robaxin 500 mg Tablet] 500 mg PO BID #10 tablet 12/26/16 Albuterol Sulfate [Proair HFA] 2 puff IH Q4HP PRN 12/31/16 Amlodipine Besylate [Norvasc 5 mg Tablet] 5 mg PO DAILY 12/31/16 Budesonide/Formoterol Fumarate [Symbicort HFA 160-4.5 mcg Inhaler 6 gm] 1 puff IH Q12 12/31/16 Citalopram Hydrobromide [Celexa 20 mg Tablet] 20 mg PO DAILY 12/31/16 Clonidine HCl [Catapres 0.1 mg Tablet] 0.1 mg PO Q12 12/31/16 Ergocalciferol (Vitamin D2) [Drisdol 50,000 unit (1.25MG) Capsule] 50,000 unit PO [id number] 12/31/16 Ferrous Sulfate [Feosol 325 mg Tablet] 325 mg PO DAILY 12/31/16 Ipratropium/Albuterol Sulfate [Duoneb 3 ml Ampul] 3 ml NEB RTQ6HP PRN 12/31/16 Levocetirizine Dihydrochloride [Xyzal] 5 mg PO QHS 12/31/16 Losartan Potassium [Cozaar 100 mg Tablet] 100 mg PO DAILY 12/31/16 Mirtazapine [Remeron 15 mg Tablet] 7.5 mg PO QHS 12/31/16 Omeprazole 40 mg PO QAM 12/31/16 Pregabalin [Lyrica 75 mg Capsule] 75 mg PO Q8 12/31/16 Tiotropium [place] [Spiriva Handihaler 18 mcg/dose (30 Dose)] 1 cap IH DAILY Menthol [Biofreeze] 1 applic TP QIDP PRN 01/28/17 Multivitamin with Minerals [One Daily Plus Minerals] 1 each PO DAILY 01/28/17 Prednisone 5 mg PO DAILY #500 tab.ds.pk 02/08/17 Clonazepam [Klonopin 1 mg Tablet] 0.5 mg PO Q12A #60 tablet 04/27/17 Levalbuterol HCl [Xopenex Neb 0.63 mg/3 ml Ampul] 0.63 mg NEB RTQ4HP PRN #120 vial.neb 04/27/17 Oxycodone HCl/Acetaminophen [Percocet 10-325 mg Tablet] 1 each PO TIDP PRN #90 04/27/17 History of Present Illness Admission Date/PCP: 03/28/17 11:49 NATACHA ENGLAND MD History of Present Illness: HUNTER GRANADOS is a 72 year old, She has multiple comorbid conditions, DNR status resident of [facility], she was transferred from the intermediate to the hospital because of shortness of breath, she was supported with noninvasive positive pressure ventilation BiPAP in the ER, chest x-ray was done , it showed a dense lesion in the left lingula lobe, this is suspicious for malignant neoplasm, CT chest will be ordered, it showed pleural-based mass the left lower lobe now measuring 6.2 x 4.8 cm. She was first diagnosed with lung cancer back in January 17, 2016, at that time it was a nodule, which was biopsied , the pathology was consistent with squamous cell carcinoma. She was referred to oncology, [facility] radiation therapy was recommended, she was referred to [facility]. She went couple of times to [place] but she never received any treatment for the cancer because of intercurrent illnesses, whenever she is scheduled for treatment she usually is seek of some kind of illnesses i.e. sepsis, pneumonia acute COPD exacerbation clearly the mass has increased in size, not sure if she is a candidate at this time for treatment, consultation will be requested from oncology to determine the plan of care for the malignant lesion. Hospital Course Hospital Course: Patient was admitted for the management of pneumonia, left lung cancer, COPD, acute on chronic respiratory failure. Patient hospital course was very prolonged, on admission she presented with acute respiratory failure that was felt to be due to pneumonia and COPD subsequently CAT scan chest of the lung was done it showed increased slight progression of the lung cancer that was first diagnosed about a year ago when it was relatively small cancer but she did not receive treatment at that time CyberKnife therapy was recommended but she did not receive treatment because of multiple intercurrent illnesses that prevented from receiving recommended treatment. 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 She also had polymicrobial pneumonia, sputum culture grew staph aureus, Proteus and Pseudomonas she was treated with IV antibiotic. She continues to require noninvasive positive pressure ventilation with BiPAP machine throughout hospital stay. She was seen by radiation oncologist and she received 5 treatments of radiation on this admission, the plan is for the patient to be discharged back to intermediate she is to receive a total of 30 treatments of radiation and she also received chemotherapy outpatient she will follow with Dr. Merino outpatient she will arrange for the outpatient chemotherapy Physical Exam Vital Signs: Temp Pulse Resp BP Pulse Ox 98.0 F 92 18 94/62 L 92 04/27/17 11:58 04/27/17 13:45 04/27/17 11:58 04/27/17 11:58 04/27/17 11:58 Intake & Output 04/26/17 04/27/17 04/28/17 06:59 06:59 06:59 Intake Total 510 954 342 Output Total 0 1700 Balance 510 -946 342 Weight 73.8 kg 76 kg General appearance: PRESENT: mild distress Eye exam: PRESENT: PERRLA Respiratory exam: PRESENT: rhonchi Cardiovascular exam: PRESENT: +S1, +S2 GI/Abdominal exam: PRESENT: soft Neurological exam: PRESENT: alert Results Laboratory Results: 04/25/17 05:45 04/25/17 05:45 Impressions: Chest CT 03/28/17 00:00 IMPRESSION: 1. Significant increase in size of pleural-based left lower lobe lung mass now measuring 6.2 cm. This is concerning malignancy. This lesion would be amenable to percutaneous biopsy. 2. Central lobular emphysematous changes. 3. Coronary artery atherosclerosis. This exam was performed according to our departmental dose-optimization program, which includes automated exposure control, adjustment of the mA and/or kV according to patient size and/or use of iterative reconstruction technique. Abdomen/Pelvis CT 04/05/17 00:00 IMPRESSION: No evidence of metastatic disease. Body Scan Nuclear Medicine 04/08/17 00:00 IMPRESSION: AREAS OF ACTIVITY IN THE SPINE WHICH CORRESPOND WITH NUMEROUS WEDGE COMPRESSION DEFORMITIES. NO UNUSUAL ACTIVITY IN THE REMAINDER OF THE SKELETON. Chest X-Ray 04/08/17 00:00 IMPRESSION: STABLE APPEARANCE OF THE CHEST STATUS POST LUNG BIOPSY. NO PNEUMOTHORAX IDENTIFIED. Lung Biopsy CT 04/08/17 08:00 IMPRESSION: CT GUIDED BIOPSY OF THE LEFT LUNG MASS PERFORMED WITHOUT IMMEDIATE COMPLICATION. PATHOLOGY PENDING. Head CT 04/15/17 11:30 IMPRESSION: 1. CHRONIC CHANGES OF ATROPHY AND MICROVASCULAR ISCHEMIA. NO ACUTE PROCESS. 2. LEFT MAXILLARY AND SPHENOID SINUS DISEASE. EVIDENCE OF ACUTE STROKE: NO.
--- NOTE | 2017-05-01 19:48 | PDOC PROGRESS REPORT ---
Subjective Progress Note for:: 04/23/17 Subjective:: continues to c/o bilat upper ext weakness and spasms Reason For Visit: ACUTE HYPERCAPNIC RESPIRATORY FAILURE,COPD,HTN Physical Exam Vital Signs: Temp Pulse Resp BP Pulse Ox 98.0 F 105 H 24 H 94/62 L 98 04/27/17 11:58 04/27/17 15:21 04/27/17 15:21 04/27/17 11:58 04/27/17 15:21 Intake & Output 04/27/17 04/28/17 04/29/17 06:59 06:59 06:59 Intake Total 954 342 Output Total 1700 Balance -746 342 Weight 76 kg General appearance: PRESENT: no acute distress, cooperative, disheveled, obese. ABSENT: mild distress, morbidly obese, severe distress Head exam: PRESENT: atraumatic, normocephalic Eye exam: PRESENT: conjunctiva pale, EOMI. ABSENT: conjunctival injection, conjunctiva pink, nystagmus, periorbital swelling, scleral icterus Mouth exam: PRESENT: moist, neck supple, tongue midline. ABSENT: dry mucosa, laceration Respiratory exam: PRESENT: crackles, decreased breath sounds, prolonged expiratory phas, rhonchi, symmetrical, unlabored, wheezes. ABSENT: accessory muscle use, chest wall tenderness, clear to auscultation ghulam, rales, retraction , stridor, tachypnea Cardiovascular exam: PRESENT: RRR, +S1, +S2 Pulses: PRESENT: normal radial pulses GI/Abdominal exam: PRESENT: diminished bowel sounds, soft Extremities exam: PRESENT: full ROM. ABSENT: clubbing, joint swelling Musculoskeletal exam: PRESENT: ambulatory, full ROM. ABSENT: deformity, dislocation Neurological exam: PRESENT: alert, awake Skin exam: PRESENT: dry, warm Results Laboratory Results: 04/25/17 05:45 04/25/17 05:45 Impressions: Chest CT 03/28/17 00:00 IMPRESSION: 1. Significant increase in size of pleural-based left lower lobe lung mass now measuring 6.2 cm. This is concerning malignancy. This lesion would be amenable to percutaneous biopsy. 2. Central lobular emphysematous changes. 3. Coronary artery atherosclerosis. This exam was performed according to our departmental dose-optimization program, which includes automated exposure control, adjustment of the mA and/or kV according to patient size and/or use of iterative reconstruction technique. Abdomen/Pelvis CT 04/05/17 00:00 IMPRESSION: No evidence of metastatic disease. Body Scan Nuclear Medicine 04/08/17 00:00 IMPRESSION: AREAS OF ACTIVITY IN THE SPINE WHICH CORRESPOND WITH NUMEROUS WEDGE COMPRESSION DEFORMITIES. NO UNUSUAL ACTIVITY IN THE REMAINDER OF THE SKELETON. Chest X-Ray 04/08/17 00:00 IMPRESSION: STABLE APPEARANCE OF THE CHEST STATUS POST LUNG BIOPSY. NO PNEUMOTHORAX IDENTIFIED. Lung Biopsy CT 04/08/17 08:00 IMPRESSION: CT GUIDED BIOPSY OF THE LEFT LUNG MASS PERFORMED WITHOUT IMMEDIATE COMPLICATION. PATHOLOGY PENDING. Head CT 04/15/17 11:30 IMPRESSION: 1. CHRONIC CHANGES OF ATROPHY AND MICROVASCULAR ISCHEMIA. NO ACUTE PROCESS. 2. LEFT MAXILLARY AND SPHENOID SINUS DISEASE. EVIDENCE OF ACUTE STROKE: NO. Assessment & Plan - Diagnosis (1) Acute hypercapnic respiratory failure Is this a current diagnosis for this admission?: Yes Plan: ABG at or near/baseline (2) Lung cancer Qualifiers: Lung location: unspecified part of lung Is this a current diagnosis for this admission?: Yes Plan: 1st dose XRT ok (3) MRSA pneumonia Qualifiers: Laterality: unspecified laterality Lung location: unspecified part of lung Qualified Code(s): J15.212 - Pneumonia due to Methicillin resistant Staphylococcus aureus Is this a current diagnosis for this admission?: Yes Plan: No evidence to substantiate at this time Labs- All tests 24 hr 03/28/17 03/28/17 03/29/17 10:15 21:47 05:24 WBC 13.3 H 9.0 8.9 03/30/17 06:08 WBC 10.9 H 03/28/17 11:16 Gram Stain - Preliminary Sputum Sputum Culture - Preliminary Proteus Mirabilis Gram Positive Cocci Clusters Pseudomonas Aeruginosa Normal Caron Absent 03/28/17 11:16 Gram Stain - Final Sputum Sputum Culture - Final Proteus Mirabilis Staphylococcus Aureus Pseudomonas Aeruginosa Normal Caron Absent
--- NOTE | 2017-05-01 19:50 | PDOC PROGRESS REPORT ---
Subjective Progress Note for:: 04/24/17 Subjective:: continues to c/o bilat upper ext weakness and spasms Reason For Visit: ACUTE HYPERCAPNIC RESPIRATORY FAILURE,COPD,HTN Physical Exam Vital Signs: Temp Pulse Resp BP Pulse Ox 98.0 F 105 H 24 H 94/62 L 98 04/27/17 11:58 04/27/17 15:21 04/27/17 15:21 04/27/17 11:58 04/27/17 15:21 Intake & Output 04/27/17 04/28/17 04/29/17 06:59 06:59 06:59 Intake Total 954 342 Output Total 1700 Balance -746 342 Weight 76 kg General appearance: PRESENT: no acute distress, cooperative, disheveled, obese. ABSENT: mild distress, morbidly obese, severe distress Head exam: PRESENT: atraumatic, normocephalic Eye exam: PRESENT: conjunctiva pale, EOMI. ABSENT: conjunctival injection, conjunctiva pink, nystagmus, periorbital swelling, scleral icterus Mouth exam: PRESENT: moist, neck supple, tongue midline. ABSENT: dry mucosa, laceration Neck exam: ABSENT: carotid bruit, JVD, lymphadenopathy, thyromegaly, tracheal deviation, tracheostomy Respiratory exam: PRESENT: decreased breath sounds, prolonged expiratory phas, rales, rhonchi, symmetrical, unlabored, wheezes. ABSENT: accessory muscle use, chest wall tenderness, clear to auscultation ghulam, crackles, retraction, stridor , tachypnea Cardiovascular exam: PRESENT: RRR, +S1, +S2 Pulses: PRESENT: normal radial pulses GI/Abdominal exam: PRESENT: diminished bowel sounds, soft Extremities exam: PRESENT: full ROM. ABSENT: clubbing, joint swelling Musculoskeletal exam: PRESENT: ambulatory, full ROM. ABSENT: deformity, dislocation Neurological exam: PRESENT: alert, awake Skin exam: PRESENT: dry, warm Results Laboratory Results: 04/25/17 05:45 04/25/17 05:45 Impressions: Chest CT 03/28/17 00:00 IMPRESSION: 1. Significant increase in size of pleural-based left lower lobe lung mass now measuring 6.2 cm. This is concerning malignancy. This lesion would be amenable to percutaneous biopsy. 2. Central lobular emphysematous changes. 3. Coronary artery atherosclerosis. This exam was performed according to our departmental dose-optimization program, which includes automated exposure control, adjustment of the mA and/or kV according to patient size and/or use of iterative reconstruction technique. Abdomen/Pelvis CT 04/05/17 00:00 IMPRESSION: No evidence of metastatic disease. Body Scan Nuclear Medicine 04/08/17 00:00 IMPRESSION: AREAS OF ACTIVITY IN THE SPINE WHICH CORRESPOND WITH NUMEROUS WEDGE COMPRESSION DEFORMITIES. NO UNUSUAL ACTIVITY IN THE REMAINDER OF THE SKELETON. Chest X-Ray 04/08/17 00:00 IMPRESSION: STABLE APPEARANCE OF THE CHEST STATUS POST LUNG BIOPSY. NO PNEUMOTHORAX IDENTIFIED. Lung Biopsy CT 04/08/17 08:00 IMPRESSION: CT GUIDED BIOPSY OF THE LEFT LUNG MASS PERFORMED WITHOUT IMMEDIATE COMPLICATION. PATHOLOGY PENDING. Head CT 04/15/17 11:30 IMPRESSION: 1. CHRONIC CHANGES OF ATROPHY AND MICROVASCULAR ISCHEMIA. NO ACUTE PROCESS. 2. LEFT MAXILLARY AND SPHENOID SINUS DISEASE. EVIDENCE OF ACUTE STROKE: NO. Assessment & Plan - Diagnosis (1) Acute hypercapnic respiratory failure Is this a current diagnosis for this admission?: Yes Plan: ABG at or near/baseline (2) Lung cancer Qualifiers: Lung location: unspecified part of lung Is this a current diagnosis for this admission?: Yes Plan: 1st dose XRT ok (3) MRSA pneumonia Qualifiers: Laterality: unspecified laterality Lung location: unspecified part of lung Qualified Code(s): J15.212 - Pneumonia due to Methicillin resistant Staphylococcus aureus Is this a current diagnosis for this admission?: Yes Plan: No evidence to substantiate at this time Labs- All tests 24 hr 03/28/17 03/28/17 03/29/17 10:15 21:47 05:24 WBC 13.3 H 9.0 8.9 03/30/17 06:08 WBC 10.9 H 03/28/17 11:16 Gram Stain - Preliminary Sputum Sputum Culture - Preliminary Proteus Mirabilis Gram Positive Cocci Clusters Pseudomonas Aeruginosa Normal Caron Absent 03/28/17 11:16 Gram Stain - Final Sputum Sputum Culture - Final Proteus Mirabilis Staphylococcus Aureus Pseudomonas Aeruginosa Normal Caron Absent
== END 2017-04-27 18:09 | DRG 189 ==
LOC: ER 09:33 → EH 11:49 → 3S 14:54 → 3N 04-06 17:51
PROVIDERS: ADMIT Internal Medicine; ATTEND Internal Medicine
PROC: 5A09557 Assistance with Respiratory Ventilation, Greater than 96 Consecutive Hours, Continuous Positive Airway Pressure (ICD-10-PCS; principal; 2017-03-28)
PROC: 0BBL3ZX Excision of Left Lung, Percutaneous Approach, Diagnostic (ICD-10-PCS; 2017-04-08)
DX: J96.02 Acute respiratory failure with hypercapnia (principal); J15.6 Pneumonia due to other Gram-negative bacteria; J15.211 Pneumonia due to Methicillin susceptible Staphylococcus aureus; C34.32 Malignant neoplasm of lower lobe, left bronchus or lung; J44.0 Chronic obstructive pulmonary disease with (acute) lower respiratory infection; J44.1 Chronic obstructive pulmonary disease with (acute) exacerbation; Z66 Do not resuscitate; I10 Essential (primary) hypertension; E78.5 Hyperlipidemia, unspecified; K21.9 Gastro-esophageal reflux disease without esophagitis; M81.0 Age-related osteoporosis without current pathological fracture; M54.9 Dorsalgia, unspecified; M19.90 Unspecified osteoarthritis, unspecified site; F41.9 Anxiety disorder, unspecified; F32.9 Major depressive disorder, single episode, unspecified; Z79.899 Other long term (current) drug therapy; Z90.49 Acquired absence of other specified parts of digestive tract; Z90.710 Acquired absence of both cervix and uterus; Z86.14 Personal history of Methicillin resistant Staphylococcus aureus infection; Z87.891 Personal history of nicotine dependence; Z88.0 Allergy status to penicillin
CPT/HCPCS: 32405; 36415; 36600; 70450; 71010; 71260; 74177; 78306; 80048; 80053; 81001; 82565; 82803; 82962; 83605; 83735; 83880; 85025; 85027; 85610; 85730; 87040; 87070; 87077; 87086; 87186; 87205; 87493; 88305; 88341; 88342; 93005; 93010; 94640; 94660; 96361; 96374; 99291; A9561; G8978-GP; G8979-GP; J0692; J0713; J1650; J1956; J2250; J2930; J3010; J3490; J7030; J7512; J7614; J7620; J7685; Q9969

== ENCOUNTER 2017-04-27 18:52 | Emergency (ER) | payer MEDICARE, MEDICAID ==
--- NOTE | 2017-04-27 19:34 | ER Document Report ---
ED General - General Stated Complaint: FALL/SHORTNESS OF BREATH Time Seen by Provider: 04/27/17 19:13 TRAVEL OUTSIDE OF THE [place] IN LAST 30 DAYS: No - HPI Notes: Patient is a 72-year-old female with an extensive history of left lung cancer, COPD, acute on chronic respiratory failure, previous pneumonia who presents to the ED status post fall. Patient was discharged this afternoon to a nursing facility after admission over the last month. Patient had an extensive workup performed for her lung cancer. Patient has chronic issues since then with her breathing and has been on BiPAP. See discharge note below from her PCM. Patient was being transported to her facility, and when she was in her wheelchair she tried reaching for a door and shifted her weight forward causing her to hit her forehead and face off of the ground. Pt states that her weight shifted and lost her balance. She did not have any development of cardiopulmonary symptoms. They brought her right back to the ED for evaluation. Patient's shortness of breath has not changed since she was discharged. Patient is demanding to be on her BiPAP currently. Patient is a DNR. Patient states that her only pain is on her forehead with bruising and swelling is, otherwise she feels well. Patient denies any loss of consciousness , nausea/vomiting. Denies any global headache, fever, neck pain, changes in vision/speech/mentation/hearing, URI, sore throat, chest pain, palpitations, syncope, abdominal pain, nausea/vomiting/diarrhea, urinary retention, dysuria, hematuria, loss of control of bowel or bladder, numbness/tingling, saddle anesthesia, muscle paralysis/weakness, or rash. Discharge note from today: (Dr. England) Patient was admitted for the management of pneumonia, left lung cancer, COPD, acute on chronic respiratory failure. Patient hospital course was very prolonged, on admission she presented with acute respiratory failure that was felt to be due to pneumonia and COPD subsequently CAT scan chest of the lung was done it showed increased slight progression of the lung cancer that was first diagnosed about a year ago when it was relatively small cancer but she did not receive treatment at that time CyberKnife therapy was recommended but she did not receive treatment because of multiple intercurrent illnesses that prevented from receiving recommended treatment. 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 She also had polymicrobial pneumonia, sputum culture grew staph aureus, Proteus and Pseudomonas she was treated with IV antibiotic. She continues to require noninvasive positive pressure ventilation with BiPAP machine throughout hospital stay. She was seen by radiation oncologist and she received 5 treatments of radiation on this admission, the plan is for the patient to be discharged back to senior living she is to receive a total of 30 treatments of radiation and she also received chemotherapy outpatient she will follow with Dr. Merino outpatient she will arrange for the outpatient chemotherapy - Related Data Allergies/Adverse Reactions: Penicillins Allergy (Verified 03/28/17 11:07) Hives Past Medical History - Social History Smoking Status: Unknown if Ever Smoked Family History: Arthritis, None, Reviewed & Not Pertinent - Past Medical History Cardiac Medical History: Reports: Hx Hypercholesterolemia, Hx Hypertension Denies: Hx Coronary Artery Disease, Hx Heart Attack Pulmonary Medical History: Reports: Hx Asthma, Hx Bronchitis, Hx COPD, Hx Pneumonia, Hx Respiratory Failure Denies: Hx Tuberculosis Neurological Medical History: Denies: Hx Cerebrovascular Accident, Hx Migraine, Hx Seizures Endocrine Medical History: Denies: Hx Diabetes Mellitus Type 1, Hx Diabetes Mellitus Type 2 Renal/ Medical History: Denies: Hx Peritoneal Dialysis Malignancy Medical History: Reports: Hx Lung Cancer GI Medical History: Reports: Hx Gastroesophageal Reflux Disease. Denies: Hx Crohn's Disease, Hx Ulcerative Colitis Musculoskeltal Medical History: Reports Hx Arthritis Psychiatric Medical History: Reports: Hx Anxiety, Hx Depression Traumatic Medical History: Denies: Hx Traumatic Brain Injury Infectious Medical History: Reports: Hx MRSA - History of MRSA pneumonia Past Surgical History: Reports: Hx Abdominal Surgery - gastric bypass, sbo, Hx Appendectomy, Hx Cholecystectomy, Hx Hysterectomy, Hx Orthopedic Surgery - Immunizations Immunizations up to date: Yes Hx Diphtheria, Pertussis, Tetanus Vaccination: No Hx Pneumococcal Vaccination: 04/14/12 Review of Systems - Review of Systems Notes: REVIEW OF SYSTEMS: CONSTITUTIONAL : see hpi EENT: Denies eye, ear, throat, or mouth pain or symptoms. Denies nasal or sinus congestion or discharge. Denies throat, tongue, or mouth swelling or difficulty swallowing. CARDIOVASCULAR: Denies chest pain. Denies palpitations or racing or irregular heart beat. Denies ankle edema. RESPIRATORY: see hpi. GASTROINTESTINAL: Denies abdominal pain or distention. Denies nausea, vomiting , or diarrhea. Denies blood in vomitus, stools, or per rectum. Denies black, tarry stools. Denies constipation. GENITOURINARY: Denies difficulty urinating, painful urination, burning, frequency, blood in urine, or discharge. MUSCULOSKELETAL: see hpi. Denies back or neck pain or stiffness. Denies joint pain or swelling. SKIN: Denies rash, lesions or sores. NEUROLOGICAL: see hpi. Denies confusion or altered mental status. Denies passing out or loss of consciousness. Denies dizziness or lightheadedness. Denies headache. Denies weakness or paralysis or loss of use of either side. Denies problems with speech. Denies sensory loss, numbness, or tingling. Denies seizures. ALL OTHER SYSTEMS REVIEWED AND NEGATIVE. Dictation was performed using [employer] voice recognition software Physical Exam - Vital signs Vitals: Temp Pulse Resp BP Pulse Ox 98.1 F 113 H 22 H 141/84 H 97 04/27/17 19:06 04/27/17 19:06 04/27/17 19:06 04/27/17 19:06 04/27/17 19:06 Notes: PHYSICAL EXAMINATION: GENERAL: Well-appearing, well-nourished and in no mild resp distress. A&Ox4. Answers questions appropriately. HEAD: There is a hematoma to the left forehead w/o active bleeding. + mild tenderness to that area w/o bogginess. No other cranial tenderness noted. EYES: Pupils equal round and reactive to light, extraocular movements intact, sclera anicteric, conjunctiva are normal. No raccoon eyes/entrapment. No nystagmus. ENT: EAC clear b/l. TM's intact b/l without erythema, fluid, or perforation. Nares patent and without discharge. oropharynx clear without exudates. No tonsilar hypertrophy or erythema. Moist mucous membranes. No sinus tenderness. No hemotympanum/CSF discharge. Face: + scant bruising to the bridge of the nose and inferior left orbit. NECK: Normal range of motion, supple without lymphadenopathy. No rigidity. No midline tenderness. Spurling negative. NEXUS negative. Chest: No flail chest. equal rise/fall. Non-tender LUNGS: Rhonchi and wheezes b/l. Prolonged expiration. HEART: Regular rate and rhythm without murmurs, rubs, gallops. ABDOMEN: Soft, nontender, nondistended abdomen. No guarding, no rebound. No masses appreciated. Normal bowel sounds present. No CVA tenderness bilaterally. Musculoskeletal: Ext b/l: FROM to passive/active. Strength 5+/5. No deficits noted. No bony tenderness of extremities. Back: FROM to passive/active. Strength 5+/5. No vertebral point tenderness, stepoffs, or deformities. No other bony tenderness or ecchymosis. Extremities: No cyanosis, clubbing, or edema b/l. Peripheral pulses 2+. Capillary refill less than 2 seconds. NEUROLOGICAL: NIH 0. GCS 15. MMSE intact. Cranial nerves grossly intact. Normal speech. Normal sensory, motor exams. Reflexes 2+ b/l. VENUS's negative. Pronator drift negative. Heel/mcpherson, finger/nose wnl. PSYCH: Normal mood, normal affect. SKIN: There is a small skin tear, closed to the hematoma on the forehead. No active bleeding sites noted. Course - Re-evaluation Re-evalutation: 04/27/17 20:07 Pt palced on BIPAP. Currently O2 sat @ 92%, 12/5: 30% Pt states that she is feeling better with her breathing 1st magnesium running. Once that is finished we will send her for her CT scans. 04/27/17 21:31 Patient is an afebrile, well-hydrated, 72-year-old female who presents to the ED with continued shortness of breath and COPD secondary to her pulmonary lung conditions as well as a forehead contusion status post fall. CBC, CMP, cardiac enzymes/EKG are unremarkable for any acute pathology. Patient received 2 g of magnesium, Solu-Medrol, 2 breathing treatments, and IV fluids. Pt was placed on BIPAP. Patient's pulse ox improved to 97% and heart rate to 90. Her pulse ox has been ranging between 94 and 98 since her treatments and being placed on BiPAP. I do not suspect any significant cardiopulmonary event that precipitated her fall. By history, it appears as though it was more of a balance issue and weight shifting. Pt had an extensive work up throughout her stay at the hospital and was just discharged prior to arrival. CT scan of the head and face were unremarkable for any acute pathology. Patient states that she has not noted anything acute with her breathing, but has been having this issue over the last month. Low suspicion for any acute glaucoma, temporal arteritis, meningitis, intracranial hemorrhage, ischemic stroke, fracture, ACS, PE, pneumothorax, pericarditis, dissection, respiratory compromise, severe dehydration, sepsis, meningitis, or other systemic emergent condition at this time. Patient is aware that her condition can change from initial presentation and she needs to monitor symptoms closely and seek medical attention for any acute changes. Recommend conservative measures for symptoms. Continue BIPAP at home. Recheck with your PCM in 2-3 days. Return to the ED with any worsening/concerning symptoms otherwise as reviewed in discharge. Patient is in agreement. Direction per your PCM otherwise for your consults with specialists. - Vital Signs Vital signs: Temp Pulse Resp BP Pulse Ox 98.1 F 113 H 17 141/84 H 98 04/27/17 19:06 04/27/17 19:06 04/27/17 19:31 04/27/17 19:06 04/27/17 19:31 - Laboratory Result Diagrams: 04/27/17 19:13 04/27/17 19:13 Laboratory results interpreted by me: 04/27/17 04/27/17 04/27/17 19:13 19:13 19:13 WBC 12.5 H Hgb 10.0 L Hct 32.4 L MCH 26.9 L MCHC 31.0 L RDW 17.0 H Absolute Neutrophils 8.6 H APTT 41.0 H Sodium 146.4 H Carbon Dioxide 31 H BUN 29 H Glucose 119 H Calcium 10.6 H Creatine Kinase 20 L Discharge - Discharge Clinical Impression: COPD exacerbation Fall Qualifiers: Encounter type: initial encounter Qualified Code(s): W19.XXXA - Unspecified fall, initial encounter Head injury Qualifiers: Encounter type: initial encounter Qualified Code(s): S09.90XA - Unspecified injury of head, initial encounter Chronic respiratory failure Qualifiers: Respiratory failure complication: hypercapnia Qualified Code(s): J96.12 - Chronic respiratory failure with hypercapnia Condition: Stable Disposition: HOME, SELF-CARE Instructions: Chronic Obstructive Lung Disease ([facility]), Head Injury Precautions ( [facility]) Additional Instructions: Maintain adequate fluid/food intake and stay hydrated Take meds as directed use BIPAP at home as directed* tylenol/ibuprofen as needed over the counter cold medication as needed for symptoms Humidified air may help for a cough Rest, ice. F/u: with your PCM in 2-3 days for a recheck Return to the ED with any worsening symptoms and/or development of fever, headache, changes in behavior/mentation/vision/speech, chest pain, palpitations , syncope, worsening shortness of breath, trouble breathing, abdominal pain, n/v /d, blood in stool/urine, loss of control of bowel/bladder, urinary retention, muscle weakness/paralysis, saddle anesthesia, numbness/tingling, or other worsening symptoms that are concerning to you. Forms: Elevated Blood Pressure Referrals: NATACHA ENGLAND MD [Primary Care Provider] - 04/29/17
[2017-04-27] MEDS: MAGNESIUM SULFATE/D5W 1 GM/100 ML RTUPB IV SCH ×2 (19:35→20:56)
[2017-04-27] MEDS ORDERED: NORMAL SALINE 1000 ML 1,000 ML IV ONE (20:48)
--- NOTE | 2017-04-27 20:52 | RADIOLOGY REPORT (SQ) ---
EXAM DESCRIPTION: CT HEAD WITHOUT COMPLETED DATE/TIME: 04/27/2017 8:43 pm REASON FOR STUDY: fall, head injury COMPARISON: 04/15/2017. TECHNIQUE: Axial images acquired through the brain without intravenous contrast. Images reviewed wi th bone, brain and subdural windows. Images stored on PACS. All CT scanners at this facility use dose modulation, iterative reconstruction, and/or weight based d osing when appropriate to reduce radiation dose to as low as reasonably achievable (ALARA). [facility]: Dose Right [facility]: CareDose [facility]: Dose Right [facility]: Teradose 4D [facility]: Smart [employer] RADIATION DOSE: CT Rad equipment meets quality standard of care and radiation dose reduction techniq ues were employed. CTDIvol: 64.6 mGy. DLP: 2689 mGy-cm.mGy. LIMITATIONS: Motion artifact. FINDINGS: VENTRICLES: Prominent. CEREBRUM: No masses. No hemorrhage. No midline shift. Areas of low density in the white matter mos t likely due to chronic micro-vascular ischemic change. No evidence for acute infarction. CEREBELLUM: No masses. No hemorrhage. No alteration of density. No evidence for acute infarction. EXTRAAXIAL SPACES: Age-related involutional change. No fluid collections. No masses. ORBITS AND GLOBE: No intra- or extraconal masses. Normal contour of globe without masses. CALVARIUM: No fracture. PARANASAL SINUSES: No fluid or mucosal thickening. SOFT TISSUES: No mass or hematoma. OTHER: No other significant finding. IMPRESSION: CHRONIC CHANGES OF ATROPHY AND MICROVASCULAR ISCHEMIA. NO ACUTE PROCESS. EVIDENCE OF ACUTE STROKE: NO. TECHNICAL DOCUMENTATION: JOB ID: [id number] Quality ID # [id number]: Final reports with documentation of one or more dose reduction techniques (e.g., Au tomated exposure control, adjustment of the mA and/or kV according to patient size, use of iterative reconstruction technique) 2010 [employer]- All Rights Reserved
[2017-04-27 20:53] LABS: ABSOLUTE BASOPHILS # (AUTO) 0.1 10^3/uL (0.0-0.2); ABSOLUTE EOSINOPHILS # (AUTO) 0.2 10^3/uL (0.0-0.6); ABSOLUTE LYMPHOCYTES (AUTO) 2.6 10^3/uL (0.5-4.7); ABSOLUTE MONOCYTES (AUTO) 0.9 10^3/uL (0.1-1.4); ABSOLUTE NEUT (AUTO) 8.6 10^3/uL (1.7-8.2); BASOPHILS % (AUTO) 0.5 % (0-2); EOSINOPHILS % (AUTO) 1.8 % (0-6); HEMATOCRIT 32.4 % (36.0-47.0); MEAN CORPUSCULAR HEMOGLOBIN 26.9 pg (27.0-33.4); MEAN CORPUSCULAR VOLUME 87 fl (80-97); MONOCYTES % (AUTO) 7.3 % (3-13); PLATELET COUNT 354 10^3/uL (150-450); RED BLOOD COUNT 3.73 10^6/uL (3.72-5.28); SEGMENTED NEUTROPHILS % (AUTO) 69.4 % (42-78); TOTAL CELLS COUNTED % (AUTO) 100 %; WHITE BLOOD COUNT 12.5 10^3/uL (4.0-10.5)
--- NOTE | 2017-04-27 20:55 | RADIOLOGY REPORT (SQ) ---
EXAM DESCRIPTION: CT FACIAL AREA WITHOUT COMPLETED DATE/TIME: 04/27/2017 8:43 pm REASON FOR STUDY: fall, head injury COMPARISON: 01/15/2011. TECHNIQUE: Noncontrasted images through the facial bones and orbits windowed for bone and soft tissu e. Additional coronal and sagittal reconstructed images reviewed. All images stored on PACS. All CT scanners at this facility use dose modulation, iterative reconstruction, and/or weight based d osing when appropriate to reduce radiation dose to as low as reasonably achievable (ALARA). [facility]: Dose Right [facility]: CareDose [facility]: Dose Right [facility]: Teradose 4D [facility]: Smart [employer] RADIATION DOSE: CT Rad equipment meets quality standard of care and radiation dose reduction techniq ues were employed. CTDIvol: 30.4 mGy. DLP: 578 mGy-cm. mGy. LIMITATIONS: Motion artifact. FINDINGS: FACIAL BONES: No fracture or bone lesion. ORBITS: Old fracture of the floor of the left orbit. No acute fracture. Symmetric intact globes and retroorbital soft tissues. PARANASAL SINUSES: Clear. No significant mucosal thickening, mass or fluid. No nasal polyps. Maxill elaine sinus outlets are patent. SOFT TISSUES: No mass or edema. INFERIOR BRAIN: Limited view. No acute findings. OTHER: No other significant finding. IMPRESSION: NO ACUTE FINDINGS. TECHNICAL DOCUMENTATION: JOB ID: [id number] Quality ID # [id number]: Final reports with documentation of one or more dose reduction techniques (e.g., Au tomated exposure control, adjustment of the mA and/or kV according to patient size, use of iterative reconstruction technique) 2010 [employer]- All Rights Reserved
[2017-04-27 21:02] LABS: ALANINE AMINOTRANSFERASE 12 U/L (9-52); ALBUMIN 3.9 g/dL (3.5-5.0); ALKALINE PHOSPHATASE 82 U/L (38-126); ANION GAP 8 (5-19); ASPARTATE AMINO TRANSFERASE 27 U/L (14-36); BILIRUBIN,DIRECT 0.2 mg/dL (0.0-0.4); BILIRUBIN,TOTAL 0.2 mg/dL (0.2-1.3); BLOOD UREA NITROGEN 29 mg/dL (7-20); CALCIUM 10.6 mg/dL (8.4-10.2); CARBON DIOXIDE 31 mmol/L (22-30); CHLORIDE 107 mmol/L (98-107); CREATINE KINASE 20 U/L (30-135); GLUCOSE 119 mg/dL (75-110); SODIUM 146.4 mmol/L (137-145); TOTAL PROTEIN 7.4 g/dL (6.3-8.2)
[2017-04-27 21:14] LABS: CREATINE KINASE MB 1.04 ng/mL (<4.55)
[2017-04-27 21:15] LABS: TROPONIN I < 0.012 ng/mL
[2017-04-27 21:20] LABS: INTERNATIONAL RATION (INR) 0.99; PROTHROMBIN TIME 13.8 SEC (11.4-15.4)
--- NOTE | 2017-04-27 22:06 | EKG REPORT ---
SEVERITY:- ABNORMAL ECG - SINUS RHYTHM FIRST DEGREE AV BLOCK LEFT ANTERIOR FASCICULAR BLOCK BORDERLINE T ABNORMALITIES, ANT-LAT LEADS : Confirmed by: Michael Olivier MD 27-Apr-2017 22:06:08
[2017-04-27] MEDS ORDERED: ACETAMINOPHEN 325 MG TABLET PO ONE (23:57)
[2017-04-27] MEDS ORDERED: LORAZEPAM INJ 2 MG/1 ML VIAL IV ONE (23:58)
[2017-04-28 01:00] VITALS: BP 147/69
== END 2017-04-28 00:35 | disposition home or self-care (01) ==
LOC: ER 18:52
PROC: 0HQGXZZ Repair Left Hand Skin, External Approach (ICD-10-PCS; principal; 2017-04-27)
DX: S09.90XA Unspecified injury of head, initial encounter (principal); S51.812A Laceration without foreign body of left forearm, initial encounter; S61.211A Laceration without foreign body of left index finger without damage to nail, initial encounter; J96.12 Chronic respiratory failure with hypercapnia; J44.1 Chronic obstructive pulmonary disease with (acute) exacerbation; C34.92 Malignant neoplasm of unspecified part of left bronchus or lung; W19.XXXA Unspecified fall, initial encounter
CPT/HCPCS: 99285; 96375; 96365; 96366; 94660; 12001; A9270; J2060; J3475; J7030; 36415; 70450; 70486; 80053; 82550; 82553; 84484; 85025; 85610; 85730; 93005; 93010

== ENCOUNTER 2017-04-28 10:33 | Inpatient (IN) | payer MEDICARE, MEDICAID ==
[2017-04-28] MEDS ORDERED: IPRATROPIUM/ALBUTEROL 0.5-2.5 MG/3 ML AMPUL NEB ONE (11:38)
--- NOTE | 2017-04-28 11:46 | ER Document Report ---
ED Respiratory Problem - General Chief Complaint: Shortness Of Breath Stated Complaint: SHORTNESS OF BREATH Time Seen by Provider: 04/28/17 11:37 Notes: Patient is a 72-year-old female, past medical history COPD, lung cancer, presents from [place] longterm with shortness of breath. She was admitted to the hospital for 1 month where she was discharged yesterday. She visited the ER yesterday and was discharged back to the longterm. Patient is supposed to wear BiPAP at night and is on home 2 L nasal cannula. Patient denies increased leg swelling, hemoptysis, chest pain, nausea, vomiting, fevers , abdominal pain or back pain. TRAVEL OUTSIDE OF THE [place] IN LAST 30 DAYS: No - Related Data Allergies/Adverse Reactions: Penicillins Allergy (Verified 03/28/17 11:07) Hives Past Medical History - General Information source: Patient - Social History Smoking Status: Unknown if Ever Smoked Family History: Arthritis, None, Reviewed & Not Pertinent - Past Medical History Cardiac Medical History: Reports: Hx Hypercholesterolemia, Hx Hypertension Denies: Hx Coronary Artery Disease, Hx Heart Attack Pulmonary Medical History: Reports: Hx Asthma, Hx Bronchitis, Hx COPD, Hx Pneumonia, Hx Respiratory Failure Denies: Hx Tuberculosis Neurological Medical History: Denies: Hx Cerebrovascular Accident, Hx Migraine, Hx Seizures Endocrine Medical History: Denies: Hx Diabetes Mellitus Type 1, Hx Diabetes Mellitus Type 2 Renal/ Medical History: Denies: Hx Peritoneal Dialysis Malignancy Medical History: Reports: Hx Lung Cancer GI Medical History: Reports: Hx Gastroesophageal Reflux Disease. Denies: Hx Crohn's Disease, Hx Ulcerative Colitis Musculoskeltal Medical History: Reports Hx Arthritis Psychiatric Medical History: Reports: Hx Anxiety, Hx Depression Traumatic Medical History: Denies: Hx Traumatic Brain Injury Infectious Medical History: Reports: Hx MRSA - History of MRSA pneumonia Past Surgical History: Reports: Hx Abdominal Surgery - gastric bypass, sbo, Hx Appendectomy, Hx Cholecystectomy, Hx Hysterectomy, Hx Orthopedic Surgery - Immunizations Immunizations up to date: Yes Hx Diphtheria, Pertussis, Tetanus Vaccination: No Hx Pneumococcal Vaccination: 04/14/12 Review of Systems - Review of Systems Notes: REVIEW OF SYSTEMS: CONSTITUTIONAL: -fevers, -chills EENT: -eye pain, -difficulty swallowing, -nasal congestion CARDIOVASCULAR: -chest pain, -syncope. RESPIRATORY: +cough, +SOB GASTROINTESTINAL: -abdominal pain, -nausea, -vomiting, -diarrhea GENITOURINARY: -dysuria, -hematuria MUSCULOSKELETAL: -back pain, -neck pain SKIN: -rash or skin lesions. HEMATOLOGIC: -easy bruising or bleeding. LYMPHATIC: -swollen, enlarged glands. NEUROLOGICAL: -altered mental status or loss of consciousness, -headache, - neurologic symptoms PSYCHIATRIC: -anxiety, -depression. ALL OTHER SYSTEMS REVIEWED AND NEGATIVE. Physical Exam - Vital signs Vitals: Temp Pulse BP Pulse Ox 98.1 F 108 H 142/77 H 89 L 04/28/17 10:47 04/28/17 10:47 04/28/17 10:47 04/28/17 10:47 - Notes Notes: PHYSICAL EXAMINATION: GENERAL: Well-appearing, well-nourished and in no acute distress. HEAD: Atraumatic, normocephalic. EYES: Pupils equal round and reactive to light, extraocular movements intact, sclera anicteric, conjunctiva are normal. ENT: nares patent, oropharynx clear without exudates. Moist mucous membranes. NECK: Normal range of motion, supple without lymphadenopathy LUNGS: No respiratory distress. End-expiratory wheezing. HEART: Tachycardia, regular rate ABDOMEN: Soft, nontender, normoactive bowel sounds. No guarding, no rebound. No masses appreciated. EXTREMITIES: Normal range of motion, no pitting or edema. No cyanosis. NEUROLOGICAL: Cranial nerves grossly intact. Normal speech, normal gait. Normal sensory and motor exams. PSYCH: Normal mood, normal affect. SKIN: Warm, Dry, normal turgor, no rashes or lesions noted. Course - Re-evaluation Re-evalutation: Patient arrives hypoxic down to 74% on her normal 2 L nasal cannula. She has crackles and a productive cough. Chest x-ray shows a new left lower lobe pneumonia superimposed on her lung mass. She also has a leukocytosis. Lactate is normal and MAP is remaining above 65. With patient's recent hospitalization , broad-spectrum antibiotics started for HCAP. She was placed on BiPAP with improvement of her oxygenation and respiratory status. Her primary care physician is Dr. England. 04/28/17 15:[address] England and will admit as inpatient to [facility]. - Vital Signs Vital signs: Temp Pulse Resp BP Pulse Ox 98.1 F 108 H 24 H 142/77 H 99 04/28/17 10:47 04/28/17 10:47 04/28/17 12:04 04/28/17 10:47 04/28/17 12:04 - Laboratory Result Diagrams: 04/28/17 13:25 04/28/17 13:25 Laboratory results interpreted by me: 04/28/17 04/28/17 04/28/17 13:25 13:25 13:25 WBC 12.8 H RBC 3.70 L Hgb 10.1 L Hct 31.5 L RDW 16.8 H Seg Neuts % (Manual) 96 H Lymphocytes % (Manual) 3 L Monocytes % (Manual) 0 L Abs Neuts (Manual) 12.3 H Abs Monocytes (Manual) 0.0 L Sodium 148.3 H Potassium 5.3 H Chloride 108 H BUN 40 H Calcium 10.8 H NT-Pro-B Natriuret Pep 2630 H - Diagnostic Test Radiology reviewed: Image reviewed, Reports reviewed Radiology results interpreted by me: CXR: STABLE LEFT UPPER LOBE MASS. CORRELATE WITH RECENT BIOPSY. NEW LEFT LOWER LOBE AIRSPACE DISEASE SUSPICIOUS FOR SUPERIMPOSED PNEUMONIA. - EKG Interpretation by Me EKG shows normal: Sinus rhythm, Reynolds, Intervals, QRS Complexes, ST-T Waves Rate: Tachycardia When compared to previous EKG there are: No significant change Critical Care Note - Critical Care Note Total time excluding time spent on procedures (mins): 35 Discharge - Discharge Clinical Impression: Hypoxia Pneumonia Qualifiers: Pneumonia type: due to unspecified organism Laterality: left Lung location: lower lobe of lung Qualified Code(s): J18.1 - Lobar pneumonia, unspecified organism Condition: Stable Disposition: ADMITTED INPATIENT Admitting Provider: Lenore Unit Admitted: [facility] Referrals: NATACHA ENGLAND MD [Primary Care Provider] - Follow up as needed
--- NOTE | 2017-04-28 12:17 | RADIOLOGY REPORT (SQ) ---
EXAM DESCRIPTION: CHEST SINGLE VIEW COMPLETED DATE/TIME: 04/28/2017 12:04 pm REASON FOR STUDY: SOB COMPARISON: 04/08/2017 EXAM PARAMETERS: NUMBER OF VIEWS: One view. TECHNIQUE: Single frontal radiographic view of the chest acquired. RADIATION DOSE: NA LIMITATIONS: Patient positioning. FINDINGS: LUNGS AND PLEURA: Stable left upper lobe mass. New left lower lobe airspace disease. No pneumothorax. MEDIASTINUM AND HILAR STRUCTURES: No masses. Contour normal. HEART AND VASCULAR STRUCTURES: Heart stable in size. Normal vasculature. BONES: No acute findings. HARDWARE: None in the chest. OTHER: No other significant finding. IMPRESSION: STABLE LEFT UPPER LOBE MASS. CORRELATE WITH RECENT BIOPSY. NEW LEFT LOWER LOBE AIRSPACE DISEASE SUSPICIOUS FOR SUPERIMPOSED PNEUMONIA. TECHNICAL DOCUMENTATION: JOB ID: [id number] [employer]- All Rights Reserved
[2017-04-28] MEDS ORDERED: VANCOMYCIN HCL INJ 1000 MG VIAL IV ONE (12:26)
[2017-04-28] MEDS ORDERED: AZITHROMYCIN INJ 500 MG VIAL IV ONE (12:27)
[2017-04-28] MEDS ORDERED: CEFEPIME 1 GM/D5W RTU 1 GM/50 ML RTUPB IV SCH (12:30)
[2017-04-28 13:54] LABS: HEMATOCRIT 31.5 % (36.0-47.0); HEMOGLOBIN 10.1 g/dL (12.0-15.5); MEAN CORPUSCULAR HEMOGLOBIN 27.3 pg (27.0-33.4); MEAN CORPUSCULAR HGB CONC 32.1 g/dL (32.0-36.0); MEAN CORPUSCULAR VOLUME 85 fl (80-97); PLATELET COUNT 325 10^3/uL (150-450); RED CELL DISTRIBUTION WIDTH 16.8 % (11.5-14.0); WHITE BLOOD COUNT 12.8 10^3/uL (4.0-10.5)
[2017-04-28] MEDS ORDERED: CEFEPIME HCL 1 GM in DEXTROSE 5%-WATER 50 ML IV ONE (14:00)
[2017-04-28 14:08] LABS: ALANINE AMINOTRANSFERASE 15 U/L (9-52); ALKALINE PHOSPHATASE 87 U/L (38-126); ANION GAP 11 (5-19); ASPARTATE AMINO TRANSFERASE 25 U/L (14-36); BILIRUBIN,DIRECT 0.4 mg/dL (0.0-0.4); BILIRUBIN,TOTAL 0.4 mg/dL (0.2-1.3); BLOOD UREA NITROGEN 40 mg/dL (7-20); CALCIUM 10.8 mg/dL (8.4-10.2); CARBON DIOXIDE 29 mmol/L (22-30); CHLORIDE 108 mmol/L (98-107); GLUCOSE 102 mg/dL (75-110); POTASSIUM 5.3 mmol/L (3.6-5.0); SODIUM 148.3 mmol/L (137-145); TOTAL PROTEIN 7.7 g/dL (6.3-8.2)
[2017-04-28 14:22] LABS: ABSOLUTE LYMPHOCYTES# (MANUAL) 0.5 10^3/uL (0.5-4.7); ABSOLUTE NEUTROPHILS# (MANUAL) 12.3 10^3/uL (1.7-8.2); BASOPHILS % (MANUAL) 0 % (0-2); EOSINOPHILS % (MANUAL) 0 % (0-6); LYMPHOCYTES % (MANUAL) 3 % (13-45); MONOCYTES % (MANUAL) 0 % (3-13); SEGMENTED NEUTROPHILS % (MAN) 96 % (42-78); TOTAL CELLS COUNTED 100
[2017-04-28 14:24] LABS: ANISOCYTOSIS 1+; PLATELET COMMENT ADEQUATE; TOXIC GRANULATION 1+
[2017-04-28] MEDS ORDERED: CEFEPIME 1 GM/D5W RTU 1 GM/50 ML RTUPB IV ONE (16:00)
[2017-04-28 16:40] LABS: VENOUS BLOOD BASE EXCESS 2.6 mmol/L; VENOUS BLOOD HCO3 29.3 mmol/L (20-32); VENOUS BLOOD PCO2 56.8 mmHg (35-63); VENOUS BLOOD PH 7.33 (7.30-7.42)
--- NOTE | 2017-04-28 16:43 | EKG REPORT ---
SEVERITY:- ABNORMAL ECG - SINUS TACHYCARDIA ATRIAL PREMATURE COMPLEX PROBABLE INFERIOR INFARCT, OLD : Confirmed by: Latoya Vasquez 28-Apr-2017 16:42:48
[2017-04-28] MEDS ORDERED: (PENDING PHARMACY ID) (Menthol [Biofreeze] 1 APPLIC) TP PRN (21:38)
[2017-04-28] MEDS ORDERED: LEVALBUTEROL HCL NEB 0.63 MG/3 ML AMPUL NEB PRN (21:38)
[2017-04-28] MEDS ORDERED: CEFEPIME HCL 1 GM in DEXTROSE 5%-WATER 50 ML IV SCH (22:00)
[2017-04-28] MEDS ORDERED: ALBUTEROL SULFATE HFA (90 MCG/PUFF) 200 PUFF/8.5 GM MDI IH PRN (22:00)
[2017-04-28] MEDS ORDERED: CETIRIZINE 5 MG TABLET PO ONE (22:30)
[2017-04-28] MEDS ORDERED: TIOTROPIUM BROMIDE DPI 5 CAP/KIT (18 MCG/CAP) IH ONE (23:00)
[2017-04-28] MEDS: BUDESONIDE/FORMOTEROL 160-4.5 MCG 60 PUFF/6 GM MDI IH SCH (23:21)
[2017-04-28] MEDS: CLONIDINE HCL 0.1 MG TABLET PO SCH (23:22)
[2017-04-28] MEDS: OXYCODONE HCL IR 5 MG TABLET PO PRN (23:22)
[2017-04-28] MEDS: MIRTAZAPINE 15 MG TABLET PO SCH (23:23)
[2017-04-28] MEDS: LEVOFLOXACIN 750 MG TABLET PO SCH (23:24)
[2017-04-29] MEDS: PREGABALIN 75 MG CAPSULE PO SCH ×4 (01:25→22:26)
[2017-04-29] MEDS: OXYCODONE-ACETAMINOPHEN 5-325 MG TABLET PO PRN ×3 (01:26→15:17)
[2017-04-29] MEDS: IPRATROPIUM/ALBUTEROL 0.5-2.5 MG/3 ML AMPUL NEB PRN ×3 (02:03→19:46)
[2017-04-29] MEDS ORDERED: CEFEPIME 1 GM/D5W RTU 1 GM/50 ML RTUPB IV ONE (06:05)
[2017-04-29] MEDS: CEFEPIME 1 GM/D5W RTU 1 GM/50 ML RTUPB IV SCH ×2 (06:17→17:07)
[2017-04-29] MEDS: CLONAZEPAM 1 MG TABLET PO SCH ×2 (06:20→17:08)
[2017-04-29] MEDS: LANSOPRAZOLE 30 MG TAB.RAP.DR PO SCH (06:21)
[2017-04-29] MEDS: BUDESONIDE/FORMOTEROL 160-4.5 MCG 60 PUFF/6 GM MDI IH SCH ×2 (10:22→22:28)
[2017-04-29] MEDS: TIOTROPIUM BROMIDE DPI 5 CAP/KIT (18 MCG/CAP) IH SCH (10:23)
[2017-04-29] MEDS: AMLODIPINE BESYLATE 5 MG TABLET PO SCH (10:24)
[2017-04-29] MEDS: FERROUS SULFATE 325 MG TABLET PO SCH (10:24)
[2017-04-29] MEDS: OXYCODONE HCL IR 5 MG TABLET PO PRN ×2 (10:25→20:51)
[2017-04-29] MEDS: LOSARTAN POTASSIUM 50 MG TABLET PO SCH (10:25)
[2017-04-29] MEDS: MULTIVITAMIN TABLET PO SCH (10:26)
[2017-04-29] MEDS: CITALOPRAM HYDROBROMIDE 20 MG TABLET PO SCH (10:27)
[2017-04-29] MEDS: PREDNISONE 5 MG TABLET PO SCH (10:27)
[2017-04-29] MEDS: CLONIDINE HCL 0.1 MG TABLET PO SCH (10:27)
[2017-04-29] MEDS: METHOCARBAMOL 500 MG TABLET PO SCH ×2 (10:28→17:08)
--- NOTE | 2017-04-29 21:03 | PDOC H&P ---
History of Present Illness Admission Date/PCP: 04/28/17 15:29 NATACHA ENGLAND MD History of Present Illness: HUNTER GRANADOS is a 72 year old female, She was discharged from the hospital yesterday after 30 days of hospital admission. 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 When she was discharged yesterday to the intermediate , on arrival in the intermediate she fell and sustained injury to lower extremities, the forehead she was transferred to the emergency room for evaluation on the same day that she was discharged from the hospital. She was again transferred back to the emergency room 24 hours after discharge back to intermediate for evaluation of shortness of breath though she was discharged back to intermediate on noninvasive positive pressure ventilation BiPAP ,she has baseline shortness of breath when she arrived in the emergency room a chest x-ray was done and it was read as a new pneumonia. The emergency room physician insisted that patient be admitted to the hospital. The last time she was in the hospital she received 5 radiation treatments ,it is not possible for patient to be admitted in the hospital to complete 30 treatments, recommended by radiation oncologist.Patient is not physically a good candidate for cancer treatment, she has extremely poor function, she is unable to stand on her feet for any period of time she is unable to ambulate. The last time she was admitted hospice option was recommended, the family was in support of hospice but patient insisted on treatment despite the fact that she is not a candidate for treatment. It seems that it is virtually impossible to keep patient out of the hospital whenever she returned to the intermediate she is immediately sent back to the emergency room for evaluation of shortness of breath despite the fact that she has baseline shortness of breath due to very severe COPD, end-stage type , very large lung cancer at this point of care hospice care is the best option for this patient, consultation will be requested from hospice Past Medical History Cardiac Medical History: Reports: Hyperlipidema, Hypertension Pulmonary Medical History: Reports: Asthma, Bronchitis, Chronic Obstructive Pulmonary Disease (COPD), Pneumonia, Respiratory Failure Malignancy Medical History: Reports: Lung Cancer GI Medical History: Reports: Gastroesophageal Reflux Disease Denies: Crohn's Disease, Ulcerative Colitis Musculoskeltal Medical History: Reports: Arthritis Psychiatric Medical History: Reports: Depression Hematology: Reports: Anemia Denies: Sickle Cell Disease Infectious Medical History: Reports: 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 Past Surgical History Past Surgical History: Reports: Appendectomy, Cholecystectomy, Hysterectomy, Orthopedic Surgery Social History Smoking Status: Former Smoker Frequency of Alcohol Use: None Hx Recreational Drug Use: No Drugs: None Hx Prescription Drug Abuse: No - Advance Directive Resuscitation Status: Do Not Resuscitate Family History Family History: Arthritis, None, Reviewed & Not Pertinent Parental Family History Reviewed: Yes Children Family History Reviewed: Yes Sibling(s) Family History Reviewed.: Yes Medication/Allergy Home Medications: Methocarbamol [Robaxin 500 mg Tablet] 500 mg PO BID #10 tablet 12/26/16 Albuterol Sulfate [Proair HFA] 2 puff IH Q4HP PRN 12/31/16 Amlodipine Besylate [Norvasc 5 mg Tablet] 5 mg PO DAILY 12/31/16 Budesonide/Formoterol Fumarate [Symbicort HFA 160-4.5 mcg Inhaler 6 gm] 1 puff IH Q12 12/31/16 Citalopram Hydrobromide [Celexa 20 mg Tablet] 20 mg PO DAILY 12/31/16 Clonidine HCl [Catapres 0.1 mg Tablet] 0.1 mg PO Q12 12/31/16 Ergocalciferol (Vitamin D2) [Drisdol 50,000 unit (1.25MG) Capsule] 50,000 unit PO [id number] 12/31/16 Ferrous Sulfate [Feosol 325 mg Tablet] 325 mg PO DAILY 12/31/16 Ipratropium/Albuterol Sulfate [Duoneb 3 ml Ampul] 3 ml NEB RTQ6HP PRN 12/31/16 Levocetirizine Dihydrochloride [Xyzal] 5 mg PO QHS 12/31/16 Losartan Potassium [Cozaar 100 mg Tablet] 100 mg PO DAILY 12/31/16 Mirtazapine [Remeron 15 mg Tablet] 7.5 mg PO QHS 12/31/16 Omeprazole 40 mg PO QAM 12/31/16 Pregabalin [Lyrica 75 mg Capsule] 75 mg PO Q8 12/31/16 Tiotropium [place] [Spiriva Handihaler 18 mcg/dose (30 Dose)] 1 cap IH DAILY Menthol [Biofreeze] 1 applic TP QIDP PRN 01/28/17 Multivitamin with Minerals [One Daily Plus Minerals] 1 each PO DAILY 01/28/17 Prednisone 5 mg PO DAILY #500 tab.ds.pk 02/08/17 Clonazepam [Klonopin 1 mg Tablet] 0.5 mg PO Q12A #60 tablet 04/27/17 Levalbuterol HCl [Xopenex Neb 0.63 mg/3 ml Ampul] 0.63 mg NEB RTQ4HP PRN #120 vial.neb 04/27/17 Oxycodone HCl/Acetaminophen [Percocet 10-325 mg Tablet] 1 each PO TIDP PRN #90 04/27/17 Allergies/Adverse Reactions: Penicillins Allergy (Verified 03/28/17 11:07) Hives Review of Systems ROS unobtainable: Due to mental status Physical Exam Vital Signs: Temp Pulse Resp BP Pulse Ox 98.0 F 113 H 28 H 164/88 H 88 L 04/29/17 16:01 04/29/17 16:01 04/29/17 16:01 04/29/17 16:01 04/29/17 16:01 Intake & Output 04/28/17 04/29/17 04/30/17 06:59 06:59 06:59 Intake Total 180 520 Balance 180 520 General appearance: PRESENT: mild distress Respiratory exam: PRESENT: wheezes Cardiovascular exam: PRESENT: +S1, +S2 GI/Abdominal exam: PRESENT: soft Neurological exam: PRESENT: alert Results Impressions: Chest X-Ray 04/28/17 11:39 IMPRESSION: STABLE LEFT UPPER LOBE MASS. CORRELATE WITH RECENT BIOPSY. NEW LEFT LOWER LOBE AIRSPACE DISEASE SUSPICIOUS FOR SUPERIMPOSED PNEUMONIA. Assessment & Plan - Diagnosis (1) Lung cancer Qualifiers: Laterality: left Lung location: lower lobe of lung Qualified Code(s): C34.32 - Malignant neoplasm of lower lobe, left bronchus or lung (2) Pneumonia Qualifiers: Pneumonia type: due to unspecified organism Laterality: left Lung location: lower lobe of lung Qualified Code(s): J18.1 - Lobar pneumonia, unspecified organism Is this a current diagnosis for this admission?: Yes - Plan Summary Plan Summary: Patient is admitted, DNR status, very poor prognosis
--- NOTE | 2017-04-29 21:08 | PDOC PROGRESS REPORT ---
Subjective Progress Note for:: 04/29/17 Subjective:: Patient was seen at the bedside patient condition is very poor Reason For Visit: PNEUMONIA Physical Exam Vital Signs: Temp Pulse Resp BP Pulse Ox 97.3 F 87 18 95/55 L 100 04/29/17 19:18 04/29/17 19:18 04/29/17 19:18 04/29/17 19:18 04/29/17 19:18 Intake & Output 04/28/17 04/29/17 04/30/17 06:59 06:59 06:59 Intake Total 180 520 Balance 180 520 General appearance: PRESENT: mild distress Respiratory exam: PRESENT: wheezes Cardiovascular exam: PRESENT: +S1, +S2 GI/Abdominal exam: PRESENT: soft Neurological exam: PRESENT: alert Results Impressions: Chest X-Ray 04/28/17 11:39 IMPRESSION: STABLE LEFT UPPER LOBE MASS. CORRELATE WITH RECENT BIOPSY. NEW LEFT LOWER LOBE AIRSPACE DISEASE SUSPICIOUS FOR SUPERIMPOSED PNEUMONIA. Assessment & Plan - Diagnosis (1) Lung cancer Qualifiers: Laterality: left Lung location: lower lobe of lung Qualified Code(s): C34.32 - Malignant neoplasm of lower lobe, left bronchus or lung Is this a current diagnosis for this admission?: Yes (2) Pneumonia Qualifiers: Pneumonia type: due to unspecified organism Laterality: left Lung location: lower lobe of lung Qualified Code(s): J18.1 - Lobar pneumonia, unspecified organism Is this a current diagnosis for this admission?: Yes (3) Very severe chronic obstructive pulmonary disease Is this a current diagnosis for this admission?: Yes
[2017-04-29] MEDS: SODIUM CHLORIDE NASAL SPRAY 44 ML NASL SCH (22:25)
[2017-04-29] MEDS: CETIRIZINE 5 MG TABLET PO SCH (22:26)
[2017-04-29] MEDS: MIRTAZAPINE 15 MG TABLET PO SCH (22:26)
[2017-04-29] MEDS: LEVOFLOXACIN 750 MG TABLET PO SCH (22:27)
[2017-04-30] MEDS: CLONIDINE HCL 0.1 MG TABLET PO SCH ×3 (00:55→21:44)
[2017-04-30] MEDS: OXYCODONE-ACETAMINOPHEN 5-325 MG TABLET PO PRN ×2 (01:59→10:40)
[2017-04-30] MEDS: LORAZEPAM INJ 2 MG/1 ML VIAL IV PRN (02:26)
[2017-04-30] MEDS: CEFEPIME 1 GM/D5W RTU 1 GM/50 ML RTUPB IV SCH ×2 (06:41→17:12)
[2017-04-30] MEDS: LANSOPRAZOLE 30 MG TAB.RAP.DR PO SCH (06:42)
[2017-04-30] MEDS: PREGABALIN 75 MG CAPSULE PO SCH ×3 (06:42→21:41)
[2017-04-30] MEDS: CLONAZEPAM 1 MG TABLET PO SCH ×2 (06:42→17:18)
[2017-04-30] MEDS: SODIUM CHLORIDE NASAL SPRAY 44 ML NASL SCH ×3 (06:50→21:44)
[2017-04-30] MEDS: IPRATROPIUM/ALBUTEROL 0.5-2.5 MG/3 ML AMPUL NEB PRN (09:47)
[2017-04-30] MEDS: TIOTROPIUM BROMIDE DPI 5 CAP/KIT (18 MCG/CAP) IH SCH (10:38)
[2017-04-30] MEDS: BUDESONIDE/FORMOTEROL 160-4.5 MCG 60 PUFF/6 GM MDI IH SCH ×2 (10:39→21:43)
[2017-04-30] MEDS: METHOCARBAMOL 500 MG TABLET PO SCH ×2 (10:39→17:18)
[2017-04-30] MEDS: CITALOPRAM HYDROBROMIDE 20 MG TABLET PO SCH (10:39)
[2017-04-30] MEDS: FERROUS SULFATE 325 MG TABLET PO SCH (10:40)
[2017-04-30] MEDS: PREDNISONE 5 MG TABLET PO SCH (10:40)
[2017-04-30] MEDS: MULTIVITAMIN TABLET PO SCH (10:40)
[2017-04-30] MEDS: AMLODIPINE BESYLATE 5 MG TABLET PO SCH (10:46)
[2017-04-30] MEDS: LOSARTAN POTASSIUM 50 MG TABLET PO SCH (10:46)
[2017-04-30] MEDS: OXYCODONE HCL IR 5 MG TABLET PO PRN (14:33)
--- NOTE | 2017-04-30 16:05 | PDOC PROGRESS REPORT ---
Subjective Progress Note for:: 04/30/17 Subjective:: Patient seen by the bedside, she virtually dependent on the noninvasive positive pressure ventilation BiPAP, she is yet to be seen by hospice Reason For Visit: PNEUMONIA Physical Exam Vital Signs: Temp Pulse Resp BP Pulse Ox 99.4 F 97 21 H 97/42 L 91 L 04/30/17 12:28 04/30/17 14:00 04/30/17 12:39 04/30/17 12:28 04/30/17 12:28 Intake & Output 04/29/17 04/30/17 05/01/17 06:59 06:59 06:59 Intake Total 180 842 236 Output Total 0 Balance 180 842 236 General appearance: PRESENT: mild distress Respiratory exam: PRESENT: rhonchi Cardiovascular exam: PRESENT: +S1, +S2 Neurological exam: PRESENT: altered Results Impressions: Chest X-Ray 04/28/17 11:39 IMPRESSION: STABLE LEFT UPPER LOBE MASS. CORRELATE WITH RECENT BIOPSY. NEW LEFT LOWER LOBE AIRSPACE DISEASE SUSPICIOUS FOR SUPERIMPOSED PNEUMONIA. Assessment & Plan - Diagnosis (1) Lung cancer Qualifiers: Laterality: left Lung location: lower lobe of lung Qualified Code(s): C34.32 - Malignant neoplasm of lower lobe, left bronchus or lung Is this a current diagnosis for this admission?: Yes (2) Pneumonia Qualifiers: Pneumonia type: due to unspecified organism Laterality: left Lung location: lower lobe of lung Qualified Code(s): J18.1 - Lobar pneumonia, unspecified organism Is this a current diagnosis for this admission?: Yes (3) Very severe chronic obstructive pulmonary disease Is this a current diagnosis for this admission?: Yes
[2017-04-30] MEDS: MIRTAZAPINE 15 MG TABLET PO SCH (21:41)
[2017-04-30] MEDS: LEVOFLOXACIN 750 MG TABLET PO SCH (21:41)
[2017-04-30] MEDS: CETIRIZINE 5 MG TABLET PO SCH (21:42)
[2017-05-01] MEDS: OXYCODONE-ACETAMINOPHEN 5-325 MG TABLET PO PRN ×2 (00:33→14:09)
[2017-05-01] MEDS: CEFEPIME 1 GM/D5W RTU 1 GM/50 ML RTUPB IV SCH ×2 (05:20→17:51)
[2017-05-01] MEDS: CLONAZEPAM 1 MG TABLET PO SCH ×2 (05:21→17:51)
[2017-05-01] MEDS: PREGABALIN 75 MG CAPSULE PO SCH ×3 (05:21→21:49)
[2017-05-01] MEDS: OXYCODONE HCL IR 5 MG TABLET PO PRN (05:21)
[2017-05-01] MEDS: LANSOPRAZOLE 30 MG TAB.RAP.DR PO SCH (05:21)
[2017-05-01] MEDS: SODIUM CHLORIDE NASAL SPRAY 44 ML NASL SCH ×3 (05:22→21:50)
[2017-05-01] MEDS ORDERED: LEVALBUTEROL HCL NEB 0.63 MG/3 ML AMPUL NEB PRN (07:30)
[2017-05-01] MEDS: CITALOPRAM HYDROBROMIDE 20 MG TABLET PO SCH (09:25)
[2017-05-01] MEDS: FERROUS SULFATE 325 MG TABLET PO SCH (09:26)
[2017-05-01] MEDS: BUDESONIDE/FORMOTEROL 160-4.5 MCG 60 PUFF/6 GM MDI IH SCH ×2 (09:26→22:05)
[2017-05-01] MEDS: MULTIVITAMIN TABLET PO SCH (09:26)
[2017-05-01] MEDS: PREDNISONE 5 MG TABLET PO SCH (09:26)
[2017-05-01] MEDS: METHOCARBAMOL 500 MG TABLET PO SCH ×2 (09:26→17:51)
[2017-05-01] MEDS: TIOTROPIUM BROMIDE DPI 5 CAP/KIT (18 MCG/CAP) IH SCH (09:27)
[2017-05-01] MEDS: LOSARTAN POTASSIUM 50 MG TABLET PO SCH (09:30)
[2017-05-01] MEDS: CLONIDINE HCL 0.1 MG TABLET PO SCH ×2 (09:30→21:50)
[2017-05-01] MEDS: AMLODIPINE BESYLATE 5 MG TABLET PO SCH (09:30)
[2017-05-01] MEDS: IPRATROPIUM/ALBUTEROL 0.5-2.5 MG/3 ML AMPUL NEB PRN (16:09)
--- NOTE | 2017-05-01 20:39 | PDOC PROGRESS REPORT ---
Subjective Progress Note for:: 05/01/17 Subjective:: She was seen by the bedside, she virtually dependence on BiPAP for respiration, discharge planning is making arrangement for hospice care, my understanding IS that patient's family are in agreement with with hospice care Reason For Visit: PNEUMONIA Physical Exam Vital Signs: Temp Pulse Resp BP Pulse Ox 97.3 F 91 14 100/64 100 05/01/17 19:51 05/01/17 19:52 05/01/17 19:51 05/01/17 19:52 05/01/17 19:52 Intake & Output 04/30/17 05/01/17 05/02/17 06:59 06:59 06:59 Intake Total 842 638 342 Output Total 0 Balance 842 638 342 Weight 70.2 kg General appearance: PRESENT: severe distress Respiratory exam: PRESENT: decreased breath sounds Cardiovascular exam: PRESENT: +S1, +S2 Neurological exam: PRESENT: alert Results Impressions: Chest X-Ray 04/28/17 11:39 IMPRESSION: STABLE LEFT UPPER LOBE MASS. CORRELATE WITH RECENT BIOPSY. NEW LEFT LOWER LOBE AIRSPACE DISEASE SUSPICIOUS FOR SUPERIMPOSED PNEUMONIA. Assessment & Plan - Diagnosis (1) Lung cancer Qualifiers: Laterality: left Lung location: lower lobe of lung Qualified Code(s): C34.32 - Malignant neoplasm of lower lobe, left bronchus or lung Is this a current diagnosis for this admission?: Yes (2) Pneumonia Qualifiers: Pneumonia type: due to unspecified organism Laterality: left Lung location: lower lobe of lung Qualified Code(s): J18.1 - Lobar pneumonia, unspecified organism Is this a current diagnosis for this admission?: Yes (3) Very severe chronic obstructive pulmonary disease Is this a current diagnosis for this admission?: Yes
[2017-05-01] MEDS: MIRTAZAPINE 15 MG TABLET PO SCH (21:49)
[2017-05-01] MEDS: CETIRIZINE 5 MG TABLET PO SCH (21:49)
[2017-05-01] MEDS: LEVOFLOXACIN 750 MG TABLET PO SCH (21:49)
[2017-05-02] MEDS: LANSOPRAZOLE 30 MG TAB.RAP.DR PO SCH (05:11)
[2017-05-02] MEDS: CEFEPIME 1 GM/D5W RTU 1 GM/50 ML RTUPB IV SCH ×2 (05:11→18:43)
[2017-05-02] MEDS: PREGABALIN 75 MG CAPSULE PO SCH ×3 (05:11→21:14)
[2017-05-02] MEDS: SODIUM CHLORIDE NASAL SPRAY 44 ML NASL SCH ×3 (05:11→21:11)
[2017-05-02] MEDS: CLONAZEPAM 1 MG TABLET PO SCH ×2 (05:12→18:53)
[2017-05-02] MEDS: AMLODIPINE BESYLATE 5 MG TABLET PO SCH (09:34)
[2017-05-02] MEDS: LOSARTAN POTASSIUM 50 MG TABLET PO SCH (09:35)
[2017-05-02] MEDS: FERROUS SULFATE 325 MG TABLET PO SCH (09:35)
[2017-05-02] MEDS: PREDNISONE 5 MG TABLET PO SCH (09:35)
[2017-05-02] MEDS: CLONIDINE HCL 0.1 MG TABLET PO SCH ×2 (09:35→21:16)
[2017-05-02] MEDS: CITALOPRAM HYDROBROMIDE 20 MG TABLET PO SCH (09:35)
[2017-05-02] MEDS: METHOCARBAMOL 500 MG TABLET PO SCH ×2 (09:35→18:53)
[2017-05-02] MEDS: MULTIVITAMIN TABLET PO SCH (09:35)
[2017-05-02] MEDS: TIOTROPIUM BROMIDE DPI 5 CAP/KIT (18 MCG/CAP) IH SCH (09:36)
[2017-05-02] MEDS: BUDESONIDE/FORMOTEROL 160-4.5 MCG 60 PUFF/6 GM MDI IH SCH ×2 (09:36→21:11)
[2017-05-02] MEDS: OXYCODONE-ACETAMINOPHEN 5-325 MG TABLET PO PRN (10:23)
[2017-05-02] MEDS: OXYCODONE HCL IR 5 MG TABLET PO PRN (14:43)
[2017-05-02] MEDS: CETIRIZINE 5 MG TABLET PO SCH (21:11)
[2017-05-02] MEDS: LEVOFLOXACIN 750 MG TABLET PO SCH (21:14)
[2017-05-02] MEDS: MIRTAZAPINE 15 MG TABLET PO SCH (21:14)
--- NOTE | 2017-05-02 21:28 | PDOC PROGRESS REPORT ---
Subjective Progress Note for:: 05/02/17 Subjective:: There is no no change patient's condition remains poor awaiting discharge planning regarding hospice disposition Reason For Visit: PNEUMONIA Physical Exam Vital Signs: Temp Pulse Resp BP Pulse Ox 98.5 F 91 16 90/47 L 95 05/02/17 20:02 05/02/17 20:02 05/02/17 20:02 05/02/17 20:02 05/02/17 20:02 Intake & Output 05/01/17 05/02/17 05/03/17 06:59 06:59 06:59 Intake Total 638 428 860 Balance 638 428 860 Weight 70.2 kg 70.6 kg General appearance: PRESENT: severe distress Eye exam: PRESENT: PERRLA Respiratory exam: PRESENT: rales Cardiovascular exam: PRESENT: +S1, +S2 GI/Abdominal exam: PRESENT: soft Results Impressions: Chest X-Ray 04/28/17 11:39 IMPRESSION: STABLE LEFT UPPER LOBE MASS. CORRELATE WITH RECENT BIOPSY. NEW LEFT LOWER LOBE AIRSPACE DISEASE SUSPICIOUS FOR SUPERIMPOSED PNEUMONIA. Assessment & Plan - Diagnosis (1) Lung cancer Qualifiers: Laterality: left Lung location: lower lobe of lung Qualified Code(s): C34.32 - Malignant neoplasm of lower lobe, left bronchus or lung Is this a current diagnosis for this admission?: Yes (2) Pneumonia Qualifiers: Pneumonia type: due to unspecified organism Laterality: left Lung location: lower lobe of lung Qualified Code(s): J18.1 - Lobar pneumonia, unspecified organism Is this a current diagnosis for this admission?: Yes (3) Very severe chronic obstructive pulmonary disease Is this a current diagnosis for this admission?: Yes
[2017-05-03] MEDS: CLONAZEPAM 1 MG TABLET PO SCH ×2 (05:21→17:59)
[2017-05-03] MEDS: PREGABALIN 75 MG CAPSULE PO SCH ×3 (05:21→22:06)
[2017-05-03] MEDS: LANSOPRAZOLE 30 MG TAB.RAP.DR PO SCH (05:21)
[2017-05-03] MEDS: SODIUM CHLORIDE NASAL SPRAY 44 ML NASL SCH ×3 (05:21→22:07)
[2017-05-03] MEDS: CEFEPIME 1 GM/D5W RTU 1 GM/50 ML RTUPB IV SCH ×2 (05:21→18:03)
[2017-05-03] MEDS: IPRATROPIUM/ALBUTEROL 0.5-2.5 MG/3 ML AMPUL NEB PRN (10:11)
[2017-05-03] MEDS: CLONIDINE HCL 0.1 MG TABLET PO SCH ×2 (10:53→22:01)
[2017-05-03] MEDS: LOSARTAN POTASSIUM 50 MG TABLET PO SCH (10:53)
[2017-05-03] MEDS: AMLODIPINE BESYLATE 5 MG TABLET PO SCH (10:53)
[2017-05-03] MEDS: CITALOPRAM HYDROBROMIDE 20 MG TABLET PO SCH (11:10)
[2017-05-03] MEDS: FERROUS SULFATE 325 MG TABLET PO SCH (11:10)
[2017-05-03] MEDS: MULTIVITAMIN TABLET PO SCH (11:11)
[2017-05-03] MEDS: METHOCARBAMOL 500 MG TABLET PO SCH ×2 (11:11→18:03)
[2017-05-03] MEDS: PREDNISONE 5 MG TABLET PO SCH (11:11)
[2017-05-03] MEDS: BUDESONIDE/FORMOTEROL 160-4.5 MCG 60 PUFF/6 GM MDI IH SCH ×2 (11:12→22:06)
[2017-05-03] MEDS: TIOTROPIUM BROMIDE DPI 5 CAP/KIT (18 MCG/CAP) IH SCH (11:12)
--- NOTE | 2017-05-03 17:10 | PDOC PROGRESS REPORT ---
Subjective Progress Note for:: 05/03/17 Subjective:: She denied any chest pain. Remain on supplemental oxygen via nasal cannula. No nausea, vomiting, or abdominal pain. No fever or chills. Reason For Visit: PNEUMONIA Physical Exam Vital Signs: Temp Pulse Resp BP Pulse Ox 97.7 F 95 18 104/60 99 05/03/17 15:53 05/03/17 15:53 05/03/17 15:53 05/03/17 15:53 05/03/17 15:53 Intake & Output 05/02/17 05/03/17 05/04/17 06:59 06:59 06:59 Intake Total 428 1000 236 Balance 428 1000 236 Weight 70.6 kg 72.5 kg General appearance: PRESENT: no acute distress Head exam: PRESENT: atraumatic, normocephalic Mouth exam: PRESENT: moist Respiratory exam: PRESENT: decreased breath sounds - at lung bases Cardiovascular exam: PRESENT: RRR. ABSENT: diastolic murmur, rubs, systolic murmur Vascular exam: PRESENT: normal capillary refill. ABSENT: pallor GI/Abdominal exam: PRESENT: normal bowel sounds, soft. ABSENT: distended, guarding, mass, organolmegaly, rebound, tenderness Extremities exam: ABSENT: pedal edema Neurological exam: PRESENT: alert, awake, oriented to person, oriented to place , oriented to time, oriented to situation, CN II-XII grossly intact. ABSENT: motor sensory deficit Psychiatric exam: PRESENT: appropriate affect, normal mood. ABSENT: homicidal ideation, suicidal ideation Skin exam: PRESENT: dry, skin tears - forehead region, warm Results Laboratory Results: 04/28/17 16:25 Blood Blood Culture - Final NO GROWTH IN 5 DAYS Impressions: Chest X-Ray 04/28/17 11:39 IMPRESSION: STABLE LEFT UPPER LOBE MASS. CORRELATE WITH RECENT BIOPSY. NEW LEFT LOWER LOBE AIRSPACE DISEASE SUSPICIOUS FOR SUPERIMPOSED PNEUMONIA. 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 (2) End stage chronic obstructive pulmonary disease Is this a current diagnosis for this admission?: Yes Plan: See covering attending physician orders. - Time Time Spent with patient: 25-34 minutes Medications reviewed and adjusted accordingly: Yes Anticipated discharge: Hospice Within: Other - Inpatient Certification Based on my medical assessment, after consideration of the patient's comorbidities, presenting symptoms, or acuity I expect that the services needed warrant INPATIENT care.: Yes I certify that my determination is in accordance with my understanding of Medicare's requirements for reasonable and necessary INPATIENT services [42 CFR 412.3e].: Yes Medical Necessity: Need Close Monitoring Due to Risk of Patient Decompensation, Need For Continuous Telemetry Monitoring, Need for Nebulizer Therapy and Monitoring of Response, Risk of Complication if Not Cared For in Hospital Post Hospital Care: D/C or Transfer Summary - Plan Summary Plan Summary: See covering attending physician orders.
[2017-05-03] MEDS: LEVOFLOXACIN 750 MG TABLET PO SCH (22:06)
[2017-05-03] MEDS: CETIRIZINE 5 MG TABLET PO SCH (22:06)
[2017-05-03] MEDS: MIRTAZAPINE 15 MG TABLET PO SCH (22:06)
[2017-05-04] MEDS: PREGABALIN 75 MG CAPSULE PO SCH ×3 (05:27→22:00)
[2017-05-04] MEDS: LANSOPRAZOLE 30 MG TAB.RAP.DR PO SCH (05:27)
[2017-05-04] MEDS: CEFEPIME 1 GM/D5W RTU 1 GM/50 ML RTUPB IV SCH ×2 (05:27→17:29)
[2017-05-04] MEDS: CLONAZEPAM 1 MG TABLET PO SCH ×2 (05:27→17:25)
[2017-05-04] MEDS: SODIUM CHLORIDE NASAL SPRAY 44 ML NASL SCH ×3 (05:27→22:00)
[2017-05-04] MEDS: MULTIVITAMIN TABLET PO SCH (09:23)
[2017-05-04] MEDS: FERROUS SULFATE 325 MG TABLET PO SCH (09:23)
[2017-05-04] MEDS: CITALOPRAM HYDROBROMIDE 20 MG TABLET PO SCH (09:23)
[2017-05-04] MEDS: PREDNISONE 5 MG TABLET PO SCH (09:23)
[2017-05-04] MEDS: TIOTROPIUM BROMIDE DPI 5 CAP/KIT (18 MCG/CAP) IH SCH (09:24)
[2017-05-04] MEDS: BUDESONIDE/FORMOTEROL 160-4.5 MCG 60 PUFF/6 GM MDI IH SCH ×2 (09:25→22:00)
[2017-05-04] MEDS: LOSARTAN POTASSIUM 50 MG TABLET PO SCH (09:25)
[2017-05-04] MEDS: CLONIDINE HCL 0.1 MG TABLET PO SCH ×2 (09:25→21:39)
[2017-05-04] MEDS: AMLODIPINE BESYLATE 5 MG TABLET PO SCH (09:25)
[2017-05-04] MEDS: METHOCARBAMOL 500 MG TABLET PO SCH ×2 (09:25→17:25)
[2017-05-04] MEDS: IPRATROPIUM/ALBUTEROL 0.5-2.5 MG/3 ML AMPUL NEB PRN (09:59)
[2017-05-04] MEDS: OXYCODONE-ACETAMINOPHEN 5-325 MG TABLET PO PRN ×2 (11:17→14:49)
[2017-05-04] MEDS: OXYCODONE HCL IR 5 MG TABLET PO PRN ×2 (11:18→14:49)
--- NOTE | 2017-05-04 14:10 | PDOC PROGRESS REPORT ---
Subjective Progress Note for:: 05/04/17 Subjective:: No chest pain. Requesting for increase in her pain medication dosage. Remain on supplemental oxygen via nasal cannula. No nausea, vomiting, or abdominal pain. No fever or chills. Reason For Visit: PNEUMONIA Physical Exam Vital Signs: Temp Pulse Resp BP Pulse Ox 97.8 F 111 H 15 108/58 L 96 05/04/17 12:06 05/04/17 13:48 05/04/17 12:06 05/04/17 12:06 05/04/17 12:06 Intake & Output 05/03/17 05/04/17 05/05/17 06:59 06:59 06:59 Intake Total 1000 1012 Balance 1000 1012 Weight 72.5 kg 73 kg Physical Exam: General appearance: PRESENT: no acute distress Head exam: PRESENT: atraumatic, normocephalic Mouth exam: PRESENT: moist Respiratory exam: PRESENT: decreased breath sounds - at lung bases Cardiovascular exam: PRESENT: RRR. ABSENT: diastolic murmur, rubs, systolic murmur Vascular exam: PRESENT: normal capillary refill. ABSENT: pallor GI/Abdominal exam: PRESENT: normal bowel sounds, soft. ABSENT: distended, guarding, mass, organomegaly, rebound, tenderness Extremities exam: ABSENT: pedal edema Neurological exam: PRESENT: alert, awake, oriented to person, oriented to place , oriented to time, oriented to situation, CN II-XII grossly intact. ABSENT: motor sensory deficit Psychiatric exam: PRESENT: appropriate affect, normal mood. ABSENT: homicidal ideation, suicidal ideation Skin exam: PRESENT: dry, skin tears - forehead region, warm Results Laboratory Results: 04/28/17 16:25 Blood Blood Culture - Final NO GROWTH IN 5 DAYS Impressions: Chest X-Ray 04/28/17 11:39 IMPRESSION: STABLE LEFT UPPER LOBE MASS. CORRELATE WITH RECENT BIOPSY. NEW LEFT LOWER LOBE AIRSPACE DISEASE SUSPICIOUS FOR SUPERIMPOSED PNEUMONIA. 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 Is this a current diagnosis for this admission?: Yes (2) End stage chronic obstructive pulmonary disease Is this a current diagnosis for this admission?: Yes - Time Time Spent with patient: 25-34 minutes Medications reviewed and adjusted accordingly: Yes Anticipated discharge: SNF Within: Other - Inpatient Certification Based on my medical assessment, after consideration of the patient's comorbidities, presenting symptoms, or acuity I expect that the services needed warrant INPATIENT care.: Yes I certify that my determination is in accordance with my understanding of Medicare's requirements for reasonable and necessary INPATIENT services [42 CFR 412.3e].: Yes Medical Necessity: Need Close Monitoring Due to Risk of Patient Decompensation, Need For Continuous Telemetry Monitoring, Need for Nebulizer Therapy and Monitoring of Response, Risk of Complication if Not Cared For in Hospital Post Hospital Care: D/C or Transfer Summary - Plan Summary Plan Summary: See covering attending physician.
[2017-05-04] MEDS: MIRTAZAPINE 15 MG TABLET PO SCH (22:00)
[2017-05-04] MEDS: CETIRIZINE 5 MG TABLET PO SCH (22:00)
[2017-05-04] MEDS: LEVOFLOXACIN 750 MG TABLET PO SCH (22:00)
[2017-05-05] MEDS: PREGABALIN 75 MG CAPSULE PO SCH ×3 (05:36→22:38)
[2017-05-05] MEDS: CEFEPIME 1 GM/D5W RTU 1 GM/50 ML RTUPB IV SCH (05:36)
[2017-05-05] MEDS: SODIUM CHLORIDE NASAL SPRAY 44 ML NASL SCH ×3 (05:37→22:38)
[2017-05-05] MEDS: LANSOPRAZOLE 30 MG TAB.RAP.DR PO SCH (05:37)
[2017-05-05] MEDS: CLONAZEPAM 1 MG TABLET PO SCH ×2 (05:37→17:53)
[2017-05-05] MEDS: IPRATROPIUM/ALBUTEROL 0.5-2.5 MG/3 ML AMPUL NEB PRN (08:59)
[2017-05-05] MEDS: BUDESONIDE/FORMOTEROL 160-4.5 MCG 60 PUFF/6 GM MDI IH SCH ×2 (09:33→22:38)
[2017-05-05] MEDS: FERROUS SULFATE 325 MG TABLET PO SCH (09:33)
[2017-05-05] MEDS: MULTIVITAMIN TABLET PO SCH (09:33)
[2017-05-05] MEDS: CITALOPRAM HYDROBROMIDE 20 MG TABLET PO SCH (09:33)
[2017-05-05] MEDS: TIOTROPIUM BROMIDE DPI 5 CAP/KIT (18 MCG/CAP) IH SCH (09:34)
[2017-05-05] MEDS: METHOCARBAMOL 500 MG TABLET PO SCH ×2 (09:34→17:53)
[2017-05-05] MEDS: PREDNISONE 5 MG TABLET PO SCH (09:34)
[2017-05-05] MEDS: AMLODIPINE BESYLATE 5 MG TABLET PO SCH (09:41)
[2017-05-05] MEDS: CLONIDINE HCL 0.1 MG TABLET PO SCH ×2 (09:41→22:38)
[2017-05-05] MEDS: LOSARTAN POTASSIUM 50 MG TABLET PO SCH (09:41)
[2017-05-05] MEDS: OXYCODONE-ACETAMINOPHEN 5-325 MG TABLET PO PRN (15:44)
[2017-05-05] MEDS: OXYCODONE HCL IR 5 MG TABLET PO PRN (15:44)
[2017-05-05] MEDS: LORAZEPAM INJ 2 MG/1 ML VIAL IV PRN ×2 (22:37→22:45)
[2017-05-05] MEDS: MIRTAZAPINE 15 MG TABLET PO SCH (22:38)
[2017-05-05] MEDS: CETIRIZINE 5 MG TABLET PO SCH (22:38)
[2017-05-06 04:57] LABS: HEMATOCRIT 25.7 % (36.0-47.0); HEMOGLOBIN 8.2 g/dL (12.0-15.5); MEAN CORPUSCULAR HEMOGLOBIN 27.5 pg (27.0-33.4); MEAN CORPUSCULAR HGB CONC 32.1 g/dL (32.0-36.0); MEAN CORPUSCULAR VOLUME 86 fl (80-97); PLATELET COUNT 249 10^3/uL (150-450); RED BLOOD COUNT 2.99 10^6/uL (3.72-5.28); RED CELL DISTRIBUTION WIDTH 17.2 % (11.5-14.0)
[2017-05-06 05:22] LABS: ANION GAP 6 (5-19); BLOOD UREA NITROGEN 39 mg/dL (7-20); CALCIUM 9.7 mg/dL (8.4-10.2); CARBON DIOXIDE 28 mmol/L (22-30); CHLORIDE 108 mmol/L (98-107); GLUCOSE 94 mg/dL (75-110)
[2017-05-06] MEDS: SODIUM CHLORIDE NASAL SPRAY 44 ML NASL SCH ×3 (06:58→22:46)
[2017-05-06] MEDS: PREGABALIN 75 MG CAPSULE PO SCH ×3 (06:59→22:46)
[2017-05-06] MEDS: LANSOPRAZOLE 30 MG TAB.RAP.DR PO SCH (06:59)
[2017-05-06] MEDS: CLONAZEPAM 1 MG TABLET PO SCH ×2 (06:59→17:12)
[2017-05-06] MEDS: CITALOPRAM HYDROBROMIDE 20 MG TABLET PO SCH (09:33)
[2017-05-06] MEDS: BUDESONIDE/FORMOTEROL 160-4.5 MCG 60 PUFF/6 GM MDI IH SCH ×2 (09:34→22:45)
[2017-05-06] MEDS: TIOTROPIUM BROMIDE DPI 5 CAP/KIT (18 MCG/CAP) IH SCH (09:34)
[2017-05-06] MEDS: LOSARTAN POTASSIUM 50 MG TABLET PO SCH (09:35)
[2017-05-06] MEDS: MULTIVITAMIN TABLET PO SCH (09:36)
[2017-05-06] MEDS: METHOCARBAMOL 500 MG TABLET PO SCH ×2 (09:36→17:12)
[2017-05-06] MEDS: PREDNISONE 5 MG TABLET PO SCH (09:36)
[2017-05-06] MEDS: CLONIDINE HCL 0.1 MG TABLET PO SCH ×2 (09:36→22:48)
[2017-05-06] MEDS: AMLODIPINE BESYLATE 5 MG TABLET PO SCH (09:36)
[2017-05-06] MEDS: FERROUS SULFATE 325 MG TABLET PO SCH (09:36)
[2017-05-06] MEDS: ENOXAPARIN SODIUM INJ 40 MG/0.4 ML DISP.SYRIN SUBCUT SCH (09:37)
[2017-05-06] MEDS: OXYCODONE-ACETAMINOPHEN 5-325 MG TABLET PO PRN (09:43)
[2017-05-06] MEDS: IPRATROPIUM/ALBUTEROL 0.5-2.5 MG/3 ML AMPUL NEB PRN (13:53)
--- NOTE | 2017-05-06 17:48 | PDOC PROGRESS REPORT ---
Subjective Progress Note for:: 05/05/17 Subjective:: Patient will have to return to the assisted with hospice Reason For Visit: PNEUMONIA Physical Exam Vital Signs: Temp Pulse Resp BP Pulse Ox 98.1 F 90 18 91/55 L 98 05/06/17 16:04 05/06/17 16:04 05/06/17 16:04 05/06/17 16:04 05/06/17 16:04 Intake & Output 05/05/17 05/06/17 05/07/17 06:59 06:59 06:59 Intake Total 482 782 245 Balance 482 782 245 Weight 75.2 kg 71.4 kg General appearance: PRESENT: no acute distress Head exam: PRESENT: atraumatic, normocephalic Eye exam: PRESENT: PERRLA Neck exam: PRESENT: full ROM Respiratory exam: PRESENT: rhonchi Cardiovascular exam: PRESENT: RRR, +S1, +S2 Vascular exam: PRESENT: normal capillary refill GI/Abdominal exam: PRESENT: normal bowel sounds, soft Rectal exam: PRESENT: deferred Neurological exam: PRESENT: alert Psychiatric exam: PRESENT: appropriate affect, normal mood Skin exam: PRESENT: dry, intact, warm. ABSENT: cyanosis, rash Results Laboratory Results: 05/06/17 04:04 05/06/17 04:04 05/06/17 05/06/17 04:04 04:04 WBC 10.0 RBC 2.99 L Hgb 8.2 L Hct 25.7 L MCV 86 MCH 27.5 MCHC 32.1 RDW 17.2 H Plt Count 249 Sodium 142.0 Potassium 5.0 Chloride 108 H Carbon Dioxide 28 Anion Gap 6 BUN 39 H Creatinine 1.08 Est GFR ( Amer) > 60 Est GFR (Non-Af Amer) 50 L Glucose 94 Calcium 9.7 Impressions: Chest X-Ray 04/28/17 11:39 IMPRESSION: STABLE LEFT UPPER LOBE MASS. CORRELATE WITH RECENT BIOPSY. NEW LEFT LOWER LOBE AIRSPACE DISEASE SUSPICIOUS FOR SUPERIMPOSED PNEUMONIA. Assessment & Plan - Diagnosis (1) Lung cancer Qualifiers: Laterality: left Lung location: lower lobe of lung Qualified Code(s): C34.32 - Malignant neoplasm of lower lobe, left bronchus or lung Is this a current diagnosis for this admission?: Yes (2) Pneumonia Qualifiers: Pneumonia type: due to unspecified organism Laterality: left Lung location: lower lobe of lung Qualified Code(s): J18.1 - Lobar pneumonia, unspecified organism Is this a current diagnosis for this admission?: Yes (3) Very severe chronic obstructive pulmonary disease Is this a current diagnosis for this admission?: Yes
--- NOTE | 2017-05-06 17:58 | PDOC TRANSFER SUMMARY ---
General - Admit/Disc Date/PCP Admission Date/Primary Care Provider: 04/28/17 15:29 NATACHA ENGLAND MD Discharge Date: 05/07/17 - Discharge Diagnosis (1) Lung cancer Is this a current diagnosis for this admission?: Yes (2) Pneumonia Is this a current diagnosis for this admission?: Yes (3) Very severe chronic obstructive pulmonary disease Is this a current diagnosis for this admission?: Yes - Additional Information Resuscitation Status: Do Not Resuscitate Home Medications: Methocarbamol [Robaxin 500 mg Tablet] 500 mg PO BID #10 tablet 12/26/16 Albuterol Sulfate [Proair HFA] 2 puff IH Q4HP PRN 12/31/16 Amlodipine Besylate [Norvasc 5 mg Tablet] 5 mg PO DAILY 12/31/16 Budesonide/Formoterol Fumarate [Symbicort HFA 160-4.5 mcg Inhaler 6 gm] 1 puff IH Q12 12/31/16 Citalopram Hydrobromide [Celexa 20 mg Tablet] 20 mg PO DAILY 12/31/16 Clonidine HCl [Catapres 0.1 mg Tablet] 0.1 mg PO Q12 12/31/16 Ergocalciferol (Vitamin D2) [Drisdol 50,000 unit (1.25MG) Capsule] 50,000 unit PO [id number] 12/31/16 Ferrous Sulfate [Feosol 325 mg Tablet] 325 mg PO DAILY 12/31/16 Ipratropium/Albuterol Sulfate [Duoneb 3 ml Ampul] 3 ml NEB RTQ6HP PRN 12/31/16 Levocetirizine Dihydrochloride [Xyzal] 5 mg PO QHS 12/31/16 Losartan Potassium [Cozaar 100 mg Tablet] 100 mg PO DAILY 12/31/16 Mirtazapine [Remeron 15 mg Tablet] 7.5 mg PO QHS 12/31/16 Omeprazole 40 mg PO QAM 12/31/16 Pregabalin [Lyrica 75 mg Capsule] 75 mg PO Q8 12/31/16 Tiotropium [place] [Spiriva Handihaler 18 mcg/dose (30 Dose)] 1 cap IH DAILY Menthol [Biofreeze] 1 applic TP QIDP PRN 01/28/17 Multivitamin with Minerals [One Daily Plus Minerals] 1 each PO DAILY 01/28/17 Prednisone 5 mg PO DAILY #500 tab.ds.pk 02/08/17 Clonazepam [Klonopin 1 mg Tablet] 0.5 mg PO Q12A #60 tablet 04/27/17 Levalbuterol HCl [Xopenex Neb 0.63 mg/3 ml Ampul] 0.63 mg NEB RTQ4HP PRN #120 vial.neb 04/27/17 Oxycodone HCl/Acetaminophen [Percocet 10-325 mg Tablet] 1 each PO TIDP PRN #90 04/27/17 History of Present Illness Admission Date/PCP: 04/28/17 15:29 NATACHA ENGLAND MD History of Present Illness: HUNTER GRANADOS is a 72 year old female, She was discharged from the hospital yesterday after 30 days of hospital admission. 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 When she was discharged yesterday to the [facility] , on arrival in the [facility] she fell and sustained injury to lower extremities, the forehead she was transferred to the emergency room for evaluation on the same day that she was discharged from the hospital. She was again transferred back to the emergency room 24 hours after discharge back to [facility] for evaluation of shortness of breath though she was discharged back to fpc on noninvasive positive pressure ventilation BiPAP ,she has baseline shortness of breath when she arrived in the emergency room a chest x-ray was done and it was read as a new pneumonia. The emergency room physician insisted that patient be admitted to the hospital. The last time she was in the hospital she received 5 radiation treatments ,it is not possible for patient to be admitted in the hospital to complete 30 treatments, recommended by radiation oncologist.Patient is not physically a good candidate for cancer treatment, she has extremely poor function, she is unable to stand on her feet for any period of time she is unable to ambulate. The last time she was admitted hospice option was recommended, the family was in support of hospice but patient insisted on treatment despite the fact that she is not a candidate for treatment. It seems that it is virtually impossible to keep patient out of the hospital whenever she returned to the [facility] she is immediately sent back to the emergency room for evaluation of shortness of breath despite the fact that she has baseline shortness of breath due to very severe COPD, end-stage type , very large lung cancer at this point of care hospice care is the best option for this patient, consultation will be requested from hospice Hospital Course Hospital Course: Patient was treated with p.o. Levaquin, attempt was made to initiate hospice in the hospital, patient insisted on treatment for cancer though she has very poor function not a good candidate for cancer treatment. She will be transferred to the [facility]pc for continuity of care, to initiate hospice care Physical Exam Vital Signs: Temp Pulse Resp BP Pulse Ox 98.1 F 90 18 91/55 L 98 05/06/17 16:04 05/06/17 16:04 05/06/17 16:04 05/06/17 16:04 05/06/17 16:04 Intake & Output 05/05/17 05/06/17 05/07/17 06:59 06:59 06:59 Intake Total 482 782 245 Balance 482 782 245 Weight 75.2 kg 71.4 kg General appearance: PRESENT: mild distress Respiratory exam: PRESENT: decreased breath sounds Cardiovascular exam: PRESENT: RRR, +S1, +S2 Pulses: PRESENT: normal dorsalis pedis pul Vascular exam: PRESENT: normal capillary refill GI/Abdominal exam: PRESENT: normal bowel sounds, soft Rectal exam: PRESENT: deferred Extremities exam: PRESENT: full ROM Neurological exam: PRESENT: alert Psychiatric exam: PRESENT: appropriate affect, normal mood Skin exam: PRESENT: dry, intact, warm Results Laboratory Results: 05/06/17 04:04 05/06/17 04:04 05/06/17 05/06/17 04:04 04:04 WBC 10.0 RBC 2.99 L Hgb 8.2 L Hct 25.7 L MCV 86 MCH 27.5 MCHC 32.1 RDW 17.2 H Plt Count 249 Sodium 142.0 Potassium 5.0 Chloride 108 H Carbon Dioxide 28 Anion Gap 6 BUN 39 H Creatinine 1.08 Est GFR ( Amer) > 60 Est GFR (Non-Af Amer) 50 L Glucose 94 Calcium 9.7 Impressions: Chest X-Ray 04/28/17 11:39 IMPRESSION: STABLE LEFT UPPER LOBE MASS. CORRELATE WITH RECENT BIOPSY. NEW LEFT LOWER LOBE AIRSPACE DISEASE SUSPICIOUS FOR SUPERIMPOSED PNEUMONIA.
[2017-05-06] MEDS: MIRTAZAPINE 15 MG TABLET PO SCH (22:46)
[2017-05-06] MEDS: CETIRIZINE 5 MG TABLET PO SCH (23:42)
[2017-05-07] MEDS: CLONAZEPAM 1 MG TABLET PO SCH (05:32)
[2017-05-07] MEDS: LANSOPRAZOLE 30 MG TAB.RAP.DR PO SCH (05:32)
[2017-05-07] MEDS: SODIUM CHLORIDE NASAL SPRAY 44 ML NASL SCH (05:33)
[2017-05-07] MEDS: PREGABALIN 75 MG CAPSULE PO SCH (05:33)
[2017-05-07] MEDS: ENOXAPARIN SODIUM INJ 40 MG/0.4 ML DISP.SYRIN SUBCUT SCH (09:47)
[2017-05-07] MEDS: AMLODIPINE BESYLATE 5 MG TABLET PO SCH (09:47)
[2017-05-07] MEDS: CLONIDINE HCL 0.1 MG TABLET PO SCH (09:47)
[2017-05-07] MEDS: LOSARTAN POTASSIUM 50 MG TABLET PO SCH (09:47)
[2017-05-07] MEDS: BUDESONIDE/FORMOTEROL 160-4.5 MCG 60 PUFF/6 GM MDI IH SCH (09:57)
[2017-05-07] MEDS: CITALOPRAM HYDROBROMIDE 20 MG TABLET PO SCH (09:57)
[2017-05-07] MEDS: MULTIVITAMIN TABLET PO SCH (09:57)
[2017-05-07] MEDS: TIOTROPIUM BROMIDE DPI 5 CAP/KIT (18 MCG/CAP) IH SCH (09:57)
[2017-05-07] MEDS: FERROUS SULFATE 325 MG TABLET PO SCH (09:57)
[2017-05-07] MEDS: PREDNISONE 5 MG TABLET PO SCH (09:58)
[2017-05-07] MEDS: METHOCARBAMOL 500 MG TABLET PO SCH (09:58)
[2017-05-07 10:53] VITALS: BP 91/55
[2017-05-15] MEDS ORDERED: ERGOCALCIFEROL (VITAMIN D2) 50000 UNIT (1.25 MG) CAPSULE PO SCH (10:00)
== END 2017-05-07 12:09 | DRG 194 ==
LOC: ER 10:33 → EH 15:29 → 3W 18:22 → 3N 05-06 02:22 → 4N 05-06 23:54
PROVIDERS: ADMIT Internal Medicine; ATTEND Internal Medicine
PROC: 5A09557 Assistance with Respiratory Ventilation, Greater than 96 Consecutive Hours, Continuous Positive Airway Pressure (ICD-10-PCS; principal; 2017-04-28)
DX: J18.1 Lobar pneumonia, unspecified organism (principal); J44.0 Chronic obstructive pulmonary disease with (acute) lower respiratory infection; C34.32 Malignant neoplasm of lower lobe, left bronchus or lung; I10 Essential (primary) hypertension; E78.5 Hyperlipidemia, unspecified; K21.9 Gastro-esophageal reflux disease without esophagitis; M19.90 Unspecified osteoarthritis, unspecified site; F41.9 Anxiety disorder, unspecified; F32.9 Major depressive disorder, single episode, unspecified; Z79.899 Other long term (current) drug therapy; Z66 Do not resuscitate; Z90.49 Acquired absence of other specified parts of digestive tract; Z90.710 Acquired absence of both cervix and uterus; Z86.14 Personal history of Methicillin resistant Staphylococcus aureus infection; Z87.891 Personal history of nicotine dependence; Z88.0 Allergy status to penicillin; Z99.81 Dependence on supplemental oxygen; Z98.84 Bariatric surgery status
CPT/HCPCS: 36415; 70450; 70486; 71045; 80048; 80053; 82550; 82553; 82803; 83605; 83880; 84484; 85025; 85027; 85610; 85730; 87040; 93005; 93010; 94640; 94660; 96365; 99291; J0456; J0692; J1650; J2060; J3370; J3490; J7512; J7614; J7620

== ENCOUNTER 2017-05-22 08:43 | Emergency (ER) | payer MEDICARE, MEDICAID ==
[2017-05-22] MEDS ORDERED: IPRATROPIUM/ALBUTEROL 0.5-2.5 MG/3 ML AMPUL NEB ONE (09:15)
--- NOTE | 2017-05-22 09:23 | EKG REPORT ---
SEVERITY:- ABNORMAL ECG - SINUS TACHYCARDIA LEFT ANTERIOR FASCICULAR BLOCK CONSIDER RIGHT VENTRICULAR HYPERTROPHY CONSIDER ANTERIOR INFARCT : Confirmed by: Latoya Vasquez 22-May-2017 09:22:22
--- NOTE | 2017-05-22 09:39 | RADIOLOGY REPORT (SQ) ---
EXAM DESCRIPTION: CHEST SINGLE VIEW COMPLETED DATE/TIME: 05/22/2017 9:29 am REASON FOR STUDY: sob COMPARISON: 04/28/2017 EXAM PARAMETERS: NUMBER OF VIEWS: One view. TECHNIQUE: Single frontal radiographic view of the chest acquired. RADIATION DOSE: NA LIMITATIONS: None. FINDINGS: LUNGS AND PLEURA: Left upper lobe mass is again noted. No pneumothorax. No effusions. MEDIASTINUM AND HILAR STRUCTURES: No masses. Contour normal. HEART AND VASCULAR STRUCTURES: Heart normal in size. Normal vasculature. BONES: No acute findings. HARDWARE: None in the chest. OTHER: No other significant finding. IMPRESSION: No interval change in the chest with large left upper lobe mass. TECHNICAL DOCUMENTATION: JOB ID: [id number] [employer]- All Rights Reserved
[2017-05-22 10:47] LABS: ABSOLUTE BASOPHILS # (AUTO) 0.1 10^3/uL (0.0-0.2); ABSOLUTE EOSINOPHILS # (AUTO) 0.5 10^3/uL (0.0-0.6); ABSOLUTE LYMPHOCYTES (AUTO) 2.3 10^3/uL (0.5-4.7); ABSOLUTE MONOCYTES (AUTO) 1.7 10^3/uL (0.1-1.4); ABSOLUTE NEUT (AUTO) 8.7 10^3/uL (1.7-8.2); BASOPHILS % (AUTO) 0.4 % (0-2); EOSINOPHILS % (AUTO) 3.6 % (0-6); HEMATOCRIT 31.7 % (36.0-47.0); HEMOGLOBIN 10.1 g/dL (12.0-15.5); LYMPHOCYTES % (AUTO) 17.3 % (13-45); MEAN CORPUSCULAR HEMOGLOBIN 27.2 pg (27.0-33.4); MEAN CORPUSCULAR VOLUME 85 fl (80-97); MONOCYTES % (AUTO) 13.2 % (3-13); PLATELET COUNT 314 10^3/uL (150-450); RED BLOOD COUNT 3.74 10^6/uL (3.72-5.28); RED CELL DISTRIBUTION WIDTH 17.5 % (11.5-14.0); SEGMENTED NEUTROPHILS % (AUTO) 65.5 % (42-78); TOTAL CELLS COUNTED % (AUTO) 100 %; WHITE BLOOD COUNT 13.2 10^3/uL (4.0-10.5)
[2017-05-22 11:09] LABS: ALANINE AMINOTRANSFERASE 21 U/L (9-52); ALBUMIN 3.5 g/dL (3.5-5.0); ALKALINE PHOSPHATASE 91 U/L (38-126); ANION GAP 10 (5-19); ASPARTATE AMINO TRANSFERASE 19 U/L (14-36); BILIRUBIN,DIRECT 0.4 mg/dL (0.0-0.4); BILIRUBIN,TOTAL 0.4 mg/dL (0.2-1.3); BLOOD UREA NITROGEN 17 mg/dL (7-20); CALCIUM 10.4 mg/dL (8.4-10.2); CARBON DIOXIDE 27 mmol/L (22-30); CHLORIDE 107 mmol/L (98-107); CREATINE KINASE 32 U/L (30-135); GLUCOSE 68 mg/dL (75-110); POTASSIUM 4.8 mmol/L (3.6-5.0); SODIUM 144.4 mmol/L (137-145); TOTAL PROTEIN 6.4 g/dL (6.3-8.2)
[2017-05-22 11:20] LABS: CREATINE KINASE MB 2.14 ng/mL (<4.55); TROPONIN I 0.017 ng/mL
[2017-05-22] MEDS ORDERED: NORMAL SALINE 500 ML IV ONE (11:35)
[2017-05-22 11:52] LABS: VENOUS BLOOD BASE EXCESS 2.2 mmol/L; VENOUS BLOOD HCO3 28.4 mmol/L (20-32); VENOUS BLOOD PH 7.36 (7.30-7.42)
[2017-05-22] MEDS ORDERED: ALBUTEROL SULFATE 0.083% NEB 2.5 MG/3 ML AMPUL NEB ONE (12:23)
[2017-05-22] MEDS ORDERED: PREDNISONE 20 MG TABLET PO ONE (12:24)
--- NOTE | 2017-05-22 12:28 | ER Document Report ---
ED General - General Chief Complaint: Breathing Difficulty Stated Complaint: SHORTNESS OF BREATHE Time Seen by Provider: 05/22/17 09:15 TRAVEL OUTSIDE OF THE [place] IN LAST 30 DAYS: No - HPI Patient complains to provider of: Difficulty breathing Notes: Patient coming in for evaluation difficulty breathing. Patient had the staff call EMS is that she feels short of breath. Patient was supposed to be wearing CPAPHas a history of lung cancer. According to EMS patient overnight however CPAP was not placed on. Upon EMS evaluation patient had an SPO2 of 94% however was tachypneic and tachycardic therefore they placed the patient on CPAP. Upon my evaluation patient is very been transitioned over to BiPAP with FiO2 of 30 patient was 100% normal respirations not tachycardic. Patient states that she was feeling much better patient is concerned that the staff at the custodial did not put her on her CPAP at night. Patient denies any chest pain abdominal pain nausea vomiting fevers chills. - Related Data Allergies/Adverse Reactions: Penicillins Allergy (Verified 05/22/17 08:57) Hives Past Medical History - Social History Smoking Status: Unknown if Ever Smoked Family History: Arthritis, None, Reviewed & Not Pertinent Patient has suicidal ideation: No Patient has homicidal ideation: No - Past Medical History Cardiac Medical History: Reports: Hx Hypercholesterolemia, Hx Hypertension Denies: Hx Coronary Artery Disease, Hx Heart Attack Pulmonary Medical History: Reports: Hx Asthma, Hx Bronchitis, Hx COPD, Hx Pneumonia, Hx Respiratory Failure Denies: Hx Tuberculosis Neurological Medical History: Denies: Hx Cerebrovascular Accident, Hx Migraine, Hx Seizures Endocrine Medical History: Denies: Hx Diabetes Mellitus Type 1, Hx Diabetes Mellitus Type 2 Renal/ Medical History: Denies: Hx Peritoneal Dialysis Malignancy Medical History: Reports: Hx Lung Cancer GI Medical History: Reports: Hx Gastroesophageal Reflux Disease. Denies: Hx Crohn's Disease, Hx Ulcerative Colitis Musculoskeltal Medical History: Reports Hx Arthritis Psychiatric Medical History: Reports: Hx Anxiety, Hx Depression Traumatic Medical History: Denies: Hx Traumatic Brain Injury Infectious Medical History: Reports: Hx MRSA - History of MRSA pneumonia Past Surgical History: Reports: Hx Abdominal Surgery - gastric bypass, sbo, Hx Appendectomy, Hx Cholecystectomy, Hx Hysterectomy, Hx Orthopedic Surgery - Immunizations Immunizations up to date: Yes Hx Diphtheria, Pertussis, Tetanus Vaccination: No Hx Pneumococcal Vaccination: 04/14/12 Review of Systems - Review of Systems Constitutional: No symptoms reported EENT: No symptoms reported Cardiovascular: No symptoms reported Respiratory: Short of breath Gastrointestinal: No symptoms reported Genitourinary: No symptoms reported Female Genitourinary: No symptoms reported Musculoskeletal: No symptoms reported Skin: No symptoms reported Hematologic/Lymphatic: No symptoms reported Neurological/Psychological: No symptoms reported -: Yes All other systems reviewed and negative Physical Exam - Vital signs Vitals: Resp Pulse Ox 16 100 05/22/17 08:58 05/22/17 08:58 Interpretation: Normal - General General appearance: Appears well, Alert - HEENT Head: Normocephalic, Atraumatic Eyes: Normal Pupils: PERRL - Respiratory Respiratory status: No respiratory distress Chest status: Nontender Breath sounds: Wheezing Chest palpation: Normal - Cardiovascular Rhythm: Regular Heart sounds: Normal auscultation Murmur: No - Abdominal Inspection: Normal Distension: No distension Bowel sounds: Normal Tenderness: Nontender Organomegaly: No organomegaly - Back Back: Normal, Nontender - Extremities General upper extremity: Normal inspection, Nontender, Normal color, Normal ROM , Normal temperature General lower extremity: Normal inspection, Nontender, Normal color, Normal ROM - Neurological Neuro grossly intact: Yes Cognition: Normal Orientation: AAOx4 Jorge Coma Scale Eye Opening: Spontaneous Jorge Coma Scale Verbal: Oriented [place] Coma Scale Motor: Obeys Commands [place] Coma Scale Total: 15 Speech: Normal Motor strength normal: LUE, RUE, LLE, RLE Sensory: Normal - Psychological Associated symptoms: Normal affect, Normal mood - Skin Skin Temperature: Warm Skin Moisture: Dry Skin Color: Normal Course - Re-evaluation Re-evalutation: 05/22/17 15:43 Patient was slightly recently received a breathing treatments to clear up her wheezing. Laboratory studies not showing signs of hypercapnia or respiratory acidosis. Patient was then taken off BiPAP which she did not like. Patient was able tolerate orange juice and we did Accu-Chek after her sugar was low patient continues stated that she needed BiPAP to breathe I reassured patient that she is more likely just anxious that her oxygenation on her monitors and in the blood work is normal. Contact the patient's PCP states that he knows the patient well and otherwise we can discharge the patient back home to the custodial is that she has CPAP BiPAP available to her at the custodial at this time does not look to need admission no signs of infection no signs of hypercapnia no signs of respiratory failure. Patient continued to not wear her BiPAP and maintain her oxygen saturation patient did have an episode of anxiety normal oxygenation did have some tachycardia and will tachypnea however I was able to speak to the patient reassured her that we are going to continue to monitor that she did not need BiPAP tachypnea did improve tachycardia did improve. Just prior to transfer patient to stop a nurse in the hallway requesting her BiPAP be placed back on this was performed. I reevaluated patient did turn the FiO2 down to 21. Review of the patient's med list shows that she is on chronic Xanax in for patient was given a small dose of Ativan patient continued to have normal vital signs with basically room air FiO2. Transport team was able to transition patient back on BiPAP of the place and her notes to for the patient to continue her CPAP BiPAP at the custodial. 05/22/17 15:49 05/22/17 15:52 - Vital Signs Vital signs: Temp Pulse Resp BP Pulse Ox 98.5 F 90 23 H 112/80 99 05/22/17 13:13 05/22/17 12:47 05/22/17 13:31 05/22/17 13:01 05/22/17 13:01 - Laboratory Result Diagrams: 05/22/17 10:35 05/22/17 10:35 Laboratory results interpreted by me: 05/22/17 05/22/17 10:35 10:35 WBC 13.2 H Hgb 10.1 L Hct 31.7 L RDW 17.5 H Monocytes % 13.2 H Absolute Neutrophils 8.7 H Absolute Monocytes 1.7 H Glucose 68 L Calcium 10.4 H Discharge - Discharge Clinical Impression: COPD exacerbation Lung cancer Qualifiers: Laterality: left Condition: Good Disposition: HOME, SELF-CARE Instructions: Chronic Obstructive Lung Disease ([facility]) Additional Instructions: Patient was seen had slight wheezing on examination however no signs of hypoxia patient was placed on BiPAP until venous gas returned showing no hypercapnia. Wheezing improved after breathing treatment. Please make sure that the patient continues to wear her CPAP at night. I did discuss with PCP agrees with discharge back to custodial facility. Referrals: NATACHA ENGLAND MD [Primary Care Provider] - Follow up as needed
[2017-05-22] MEDS ORDERED: LORAZEPAM INJ 2 MG/1 ML VIAL IV ONE (12:47)
[2017-05-22 13:23] VITALS: BP 112/80
== END 2017-05-22 13:29 | disposition home or self-care (01) ==
LOC: ER 08:43
DX: J44.1 Chronic obstructive pulmonary disease with (acute) exacerbation (principal); C34.12 Malignant neoplasm of upper lobe, left bronchus or lung; F41.9 Anxiety disorder, unspecified; Z79.899 Other long term (current) drug therapy; R06.02 Shortness of breath; I10 Essential (primary) hypertension; Z88.0 Allergy status to penicillin; Z87.01 Personal history of pneumonia (recurrent); Z86.14 Personal history of Methicillin resistant Staphylococcus aureus infection; Z98.84 Bariatric surgery status
CPT/HCPCS: 93005; 94640 ×2; 99285; 96361; 96374; 36415; 82553; 82962; 82550; 85025; 80053; 84484; 82803; 71045; 93010; 94660; J2060; A9270 ×3; J7040; J7512; J7620

== ENCOUNTER 2017-06-05 12:03 | Inpatient (IN) | payer MEDICAID, MEDICARE ==
[2017-06-05 13:32] LABS: VENOUS BLOOD BASE EXCESS 0.1 mmol/L; VENOUS BLOOD HCO3 26.9 mmol/L (20-32); VENOUS BLOOD PCO2 55.4 mmHg (35-63); VENOUS BLOOD PH 7.3 (7.30-7.42)
[2017-06-05] MEDS ORDERED: CEFEPIME 1 GM/D5W RTU 1 GM/50 ML RTUPB IV ONE (13:32)
--- NOTE | 2017-06-05 13:35 | ER Document Report ---
ED General - General Mode of Arrival: Ambulatory Information source: Patient TRAVEL OUTSIDE OF THE [place] IN LAST 30 DAYS: No - HPI Patient complains to provider of: Cough and Shortness of Breath Onset: This morning Associated symptoms: Other - see notes above <MAYE CHAN - Last Filed: 06/05/17 13:46> <SHERRIE CEJA - Last Filed: 06/05/17 15:59> - General Chief Complaint: Altered Mental Status Stated Complaint: ALTERED MENTAL STATUS Time Seen by Provider: 06/05/17 12:37 Notes: 72 year old female with history of non-metastatic lung cancer and COPD (5L oxygen dependent) presents to the ED via EMS in an altered mental status earlier those morning. Patient's sister is at bedside and reports that the patient is more short of breath than normal. Patient complains of a productive cough and fever, but denies any chest pain. Patient is receiving radiation treatment for her lung cancer having received 5 of 30 treatments with her last treatment 5 weeks ago. Patient has had multiple falls which required hospitalization and has been unable to receive treatments during that time. Patient additionally complains of left leg pain secondary to the IO that was administered by EMS. (MAYE CHAN) - Related Data Allergies/Adverse Reactions: Penicillins Allergy (Verified 05/22/17 08:57) Hives Past Medical History - General Information source: Patient - Social History Smoking Status: Former Smoker Chew tobacco use (# tins/day): No Frequency of alcohol use: None Drug Abuse: None Family History: Arthritis, None, Reviewed & Not Pertinent - Past Medical History Cardiac Medical History: Reports: Hx Hypercholesterolemia, Hx Hypertension Denies: Hx Congestive Heart Failure, Hx Coronary Artery Disease, Hx Heart Attack Pulmonary Medical History: Reports: Hx Asthma, Hx Bronchitis, Hx COPD, Hx Pneumonia, Hx Respiratory Failure Denies: Hx Tuberculosis Neurological Medical History: Denies: Hx Cerebrovascular Accident, Hx Migraine, Hx Seizures Endocrine Medical History: Denies: Hx Diabetes Mellitus Type 1, Hx Diabetes Mellitus Type 2 Renal/ Medical History: Denies: Hx Peritoneal Dialysis Malignancy Medical History: Reports: Hx Lung Cancer GI Medical History: Reports: Hx Gastroesophageal Reflux Disease. Denies: Hx Crohn's Disease, Hx Ulcerative Colitis Musculoskeltal Medical History: Reports Hx Arthritis Psychiatric Medical History: Reports: Hx Anxiety, Hx Depression Traumatic Medical History: Denies: Hx Traumatic Brain Injury Infectious Medical History: Reports: Hx MRSA - History of MRSA pneumonia Past Surgical History: Reports: Hx Abdominal Surgery - gastric bypass, sbo, Hx Appendectomy, Hx Cholecystectomy, Hx Hysterectomy, Hx Orthopedic Surgery - Immunizations Immunizations up to date: Yes Hx Diphtheria, Pertussis, Tetanus Vaccination: No Hx Pneumococcal Vaccination: 04/14/12 <MAYE CHAN - Last Filed: 06/05/17 13:46> Review of Systems - Review of Systems Constitutional: See HPI, Fever EENT: No symptoms reported Cardiovascular: No symptoms reported. denies: Chest pain Respiratory: See HPI, Cough, Short of breath, Sputum Gastrointestinal: No symptoms reported Genitourinary: No symptoms reported Female Genitourinary: No symptoms reported Musculoskeletal: No symptoms reported Skin: No symptoms reported Hematologic/Lymphatic: No symptoms reported Neurological/Psychological: No symptoms reported -: Yes All other systems reviewed and negative <MAYE CHAN - Last Filed: 06/05/17 13:46> Physical Exam <MAYE CHAN - Last Filed: 06/05/17 13:46> <SHERRIE CEJA - Last Filed: 06/05/17 15:59> - Vital signs Vitals: Resp 24 H 06/05/17 12:05 - Notes Notes: GENERAL: Alert, interacts well. HEAD: Normocephalic, atraumatic. EYES: Pupils equal, round, and reactive to light. Extraocular movements intact. ENT: Oral mucosa moist, tongue midline. NECK: Full range of motion. Supple. Trachea midline. LUNGS: Appears short of breath and is belly breathing. Crackles at the bilateral bases with diffuse expiratory wheezing. No rales or rhonchi. HEART: Faint heart sounds. Regular rate and rhythm. No murmurs, gallops, or rubs. Capillary refill normal. ABDOMEN: Soft, non-tender. Non-distended. Bowel sounds present in all 4 quadrants. EXTREMITIES: Moves all 4 extremities spontaneously. No edema, radial and dorsalis pedis pulses 2/4 bilaterally. No cyanosis. NEUROLOGICAL: Alert and oriented x3. Normal speech. PSYCH: Normal affect, normal mood. SKIN: Dry and normal turgor. Sores to the bilateral 2nd toes. Not diaphoretic. Hot to touch. (MAYE CHAN) I/O to the left anterior tibia. Appears uncomfortable, appears short of breath, speaks in 2-3 word sentences. ( SHERRIE CEJA) Course - Laboratory Result Diagrams: 06/05/17 13:13 06/05/17 13:13 <MAYE CHAN - Last Filed: 06/05/17 13:46> - Laboratory Result Diagrams: 06/05/17 14:25 06/05/17 13:13 <SHERRIE CEJA - Last Filed: 06/05/17 15:59> - Re-evaluation Re-evalutation: 06/05/17 15:53 CBC shows leukocytosis of 13, anemia with hemoglobin 9.1, coags normal, venous blood gas shows acidosis with pH of 7.30, PCO2 slightly elevated at 55.4, chemistries reveal elevated potassium 5.8, BUN elevated at 44, otherwise unremarkable, cardiac enzymes negative, proBNP minimally elevated at 629, urinalysis shows urinary tract infection with small blood, positive nitrates and large leukocyte esterase, this was a catheterized specimen, this was sent for culture. Chest x-ray shows large left-sided lung mass without any change in appearance, no acute process. Patient's hypotension did not respond to fluids, I was unable to obtain an ultrasound-guided IV, both sites infiltrated. I then inserted an EJ on the right. Tolerated this well. The IOL was still in place, as the hypotension did not resolve with fluids patient is now receiving levo fed through the IV O. Patient is in septic shock. She also appears to be in moderate respiratory distress with her wheezing, she was placed on BiPAP and has improved significantly. After starting Levophed patient 's blood pressure has responded well and she appears more comfortable. Cefepime was started for the septic shock and blood cultures were obtained. Patient states she is a full code, would like to be intubated if she develops any further difficulty breathing, I have discussed this with both daughters and her sister who are also at the bedside, they understand why she is on the levo fed and they are aware that she is stated that she is a full code. When I called to discuss this patient with Dr. Grover he told me that she is supposed to be a DO NOT RESUSCITATE, when I discussed with him that the patient and family all requested that the patient be a full code he agreed to admit the patient, requested that the patient be changed from Levophed to dopamine so the patient can be admitted to the IMCU rather than the ICU. He states that the patient has been a DNR every time she has been admitted to the hospital but this is provoked every time she goes back to [facility]. (SHERRIE CEJA) - Vital Signs Vital signs: Temp Pulse Resp BP Pulse Ox 100.4 F 16 95 06/05/17 12:10 06/05/17 13:51 06/05/17 13:51 - Laboratory Laboratory results interpreted by me: 06/05/17 06/05/17 06/05/17 13:13 13:13 13:20 WBC RBC Hgb Hct RDW Absolute Neutrophils Absolute Monocytes Potassium 5.8 H Chloride 108 H BUN 44 H Est GFR ( Amer) 56 L Est GFR (Non-Af Amer) 46 L Lactic Acid 0.6 L Creatine Kinase 184 H Urine Protein Urine Blood Urine Nitrite Ur Leukocyte Esterase 06/05/17 06/05/17 13:50 14:25 WBC 13.0 H RBC 3.33 L Hgb 9.1 L Hct 28.2 L RDW 18.4 H Absolute Neutrophils 9.1 H Absolute Monocytes 1.5 H Potassium Chloride BUN Est GFR ( Amer) Est GFR (Non-Af Amer) Lactic Acid Creatine Kinase Urine Protein 30 H Urine Blood SMALL H Urine Nitrite POSITIVE H Ur Leukocyte Esterase LARGE H Critical Care Note - Critical Care Note Total time excluding time spent on procedures (mins): 60 <SHERRIE CEJA - Last Filed: 06/05/17 15:59> Discharge <MAYE CHAN - Last Filed: 06/05/17 13:46> - Discharge Admitting Provider: Samuel[facility] Unit Admitted: IMCU <SHERRIE CEJA - Last Filed: 06/05/17 15:59> - Discharge Clinical Impression: Septic shock, Malignant neoplasm of lower lobe, left bronchus or lung Urinary tract infection Qualifiers: Urinary tract infection type: acute pyelonephritis Qualified Code(s): N10 - Acute pyelonephritis Condition: Critical Disposition: ADMITTED INPATIENT Scribe Attestation: 06/05/17 15:59 I personally performed the services described in the documentation, reviewed and edited the documentation which was dictated to the scribe in my presence, and it accurately records my words and actions. (SHERRIE CEJA) Scribe Documentation - Scribe Written by Scribe:: Elia Veras, 06/05/2017 1344 acting as scribe for :: Francis <MAYE CHAN - Last Filed: 06/05/17 13:46> Sepsis <MAYE CHAN - Last Filed: 06/05/17 13:46> - Sepsis Documentation Sepsis Patient: Yes - Vital Signs Interpretation: Febrile - Cardiovascular Peripheral Pulse Strength: Weak Capillary refill: < 3 seconds Rhythm: Regular Heart Sounds: Normal auscultation - Respiratory Breath Sounds: Wheezing Respiratory Status: Respiratory distress - Skin Skin Color: Normal <SHERRIE CEJA - Last Filed: 06/05/17 15:59> - Vital Signs Vitals: Temp Pulse Resp BP Pulse Ox 100.4 F 16 95 06/05/17 12:10 06/05/17 13:51 06/05/17 13:51 Heart rate currently sinus rhythm rate of 91, oxygenation is 99% on 30% FiO2 on BiPAP, blood pressure is 122/64. (SHERRIE CEJA)
[2017-06-05 13:40] LABS: INTERNATIONAL RATION (INR) 0.89; PROTHROMBIN TIME 12.8 SEC (11.4-15.4)
[2017-06-05] MEDS: NORMAL SALINE 1000 ML 1,000 ML IV PRN ×3 (13:45→23:05)
--- NOTE | 2017-06-05 13:48 | RADIOLOGY REPORT (SQ) ---
EXAM DESCRIPTION: CHEST SINGLE VIEW COMPLETED DATE/TIME: 06/05/2017 1:38 pm REASON FOR STUDY: Septic work-up COMPARISON: 05/22/2017. EXAM PARAMETERS: NUMBER OF VIEWS: One view. TECHNIQUE: Single frontal radiographic view of the chest acquired. RADIATION DOSE: NA LIMITATIONS: None. FINDINGS: LUNGS AND PLEURA: Left lung mass unchanged. Lungs are otherwise clear. Mild atelectasis/ scarring. No focal infiltrates. No large pleural effusion. No pneumothorax. MEDIASTINUM AND HILAR STRUCTURES: No masses. Contour normal. HEART AND VASCULAR STRUCTURES: Heart normal in size. Normal vasculature. BONES: No acute findings. Chronic changes in the spine with previous kyphoplasty. HARDWARE: Clips/metallic markers. OTHER: No other significant finding. IMPRESSION: NO CHANGE IN APPEARANCE OF THE CHEST. LARGE LEFT LUNG MASS. NO ACUTE RADIOGRAPHIC FIND ING IN THE CHEST. TECHNICAL DOCUMENTATION: JOB ID: [id number] [employer]- All Rights Reserved
[2017-06-05 13:51] LABS: ALANINE AMINOTRANSFERASE 20 U/L (9-52); ALBUMIN 3.6 g/dL (3.5-5.0); ALKALINE PHOSPHATASE 78 U/L (38-126); ANION GAP 7 (5-19); ASPARTATE AMINO TRANSFERASE 29 U/L (14-36); BILIRUBIN,DIRECT 0.4 mg/dL (0.0-0.4); BILIRUBIN,TOTAL 0.4 mg/dL (0.2-1.3); BLOOD UREA NITROGEN 44 mg/dL (7-20); CALCIUM 9.1 mg/dL (8.4-10.2); CARBON DIOXIDE 27 mmol/L (22-30); CHLORIDE 108 mmol/L (98-107); GLUCOSE 85 mg/dL (75-110); POTASSIUM 5.8 mmol/L (3.6-5.0); SODIUM 142.2 mmol/L (137-145); TOTAL PROTEIN 6.6 g/dL (6.3-8.2)
[2017-06-05] MEDS ORDERED: ALBUTEROL SULFATE 0.083% NEB 2.5 MG/3 ML AMPUL NEB ONE ×2 (13:51→13:53)
[2017-06-05] MEDS ORDERED: DEXTROSE 5%-WATER 250 ML with NOREPINEPHRINE BITARTRATE 4 MG IV PRN ×2 (13:53)
[2017-06-05] MEDS ORDERED: NOREPINEPHRINE BITARTRATE INJ/PF 4 MG/4 ML SDV IV ONE (13:58)
[2017-06-05 14:21] LABS: APPEARANCE,URINE SLIGHTLY-CLOUDY; BILIRUBIN,URINE NEGATIVE (NEGATIVE); COLOR,URINE YELLOW; GLUCOSE, URINE NEGATIVE (NEGATIVE); KETONES,URINE NEGATIVE (NEGATIVE); LEUKOCYTE ESTERASE,URINE LARGE (NEGATIVE); NITRITE,URINE POSITIVE (NEGATIVE); PROTEIN,URINE 30 mg/dL (NEGATIVE); URINE SPECIFIC GRAVITY 1.012; UROBILINOGEN,URINE NEGATIVE mg/dL (<2.0)
[2017-06-05 15:13] LABS: CREATINE KINASE MB 2.26 ng/mL (<4.55); NT PRO BNP 629 pg/mL (5-900)
[2017-06-05 15:14] LABS: TROPONIN I < 0.012 ng/mL
[2017-06-05 15:16] LABS: ABSOLUTE LYMPHOCYTES (AUTO) 2.3 10^3/uL (0.5-4.7); ABSOLUTE MONOCYTES (AUTO) 1.5 10^3/uL (0.1-1.4); ABSOLUTE NEUT (AUTO) 9.1 10^3/uL (1.7-8.2); BASOPHILS % (AUTO) 0.4 % (0-2); EOSINOPHILS % (AUTO) 0.3 % (0-6); HEMATOCRIT 28.2 % (36.0-47.0); HEMOGLOBIN 9.1 g/dL (12.0-15.5); MEAN CORPUSCULAR HEMOGLOBIN 27.2 pg (27.0-33.4); MEAN CORPUSCULAR HGB CONC 32.1 g/dL (32.0-36.0); MEAN CORPUSCULAR VOLUME 85 fl (80-97); MONOCYTES % (AUTO) 11.5 % (3-13); PLATELET COUNT 272 10^3/uL (150-450); RED BLOOD COUNT 3.33 10^6/uL (3.72-5.28); RED CELL DISTRIBUTION WIDTH 18.4 % (11.5-14.0); SEGMENTED NEUTROPHILS % (AUTO) 69.8 % (42-78); TOTAL CELLS COUNTED % (AUTO) 100 %
[2017-06-05] MEDS ORDERED: DOPAMINE HCL/DEXTROSE 5%-WATER 800 MG/250 ML RTUINJ IV PRN (15:41)
[2017-06-05] MEDS ORDERED: LIDOCAINE 2% INJ (20 MG/ML) 20 ML MDV INJ ONE ×2 (15:49→16:20)
--- NOTE | 2017-06-05 19:49 | EKG REPORT ---
SEVERITY:- ABNORMAL ECG - SINUS RHYTHM LAD, CONSIDER LAFB OR INFERIOR INFARCT : Confirmed by: Michael Olivier MD 05-Jun-2017 19:47:40
[2017-06-05 23:58] LABS: CREATINE KINASE MB 2.77 ng/mL (<4.55); TROPONIN I 0.014 ng/mL
[2017-06-06 00:02] LABS: FREE T4 (FREE THYROXINE) 1.04 ng/dL (0.78-2.19)
[2017-06-06 00:16] LABS: THYROID STIMULATING HORMONE 1.82 uIU/mL (0.47-4.68)
[2017-06-06] MEDS ORDERED: ALBUTEROL SULFATE HFA (90 MCG/PUFF) 200 PUFF/8.5 GM MDI IH PRN (02:37)
[2017-06-06] MEDS ORDERED: (PENDING PHARMACY ID) (Menthol [Biofreeze] 1 APPLIC) TOP PRN (02:43)
[2017-06-06] MEDS ORDERED: LEVALBUTEROL HCL NEB 0.63 MG/3 ML AMPUL NEB PRN (02:43)
[2017-06-06] MEDS ORDERED: IPRATROPIUM/ALBUTEROL 0.5-2.5 MG/3 ML AMPUL NEB PRN (02:43)
[2017-06-06] MEDS: OXYCODONE-ACETAMINOPHEN 5-325 MG TABLET PO PRN ×3 (03:03→18:40)
[2017-06-06] MEDS: CLONAZEPAM 1 MG TABLET PO PRN ×2 (03:03→14:33)
[2017-06-06] MEDS: LANSOPRAZOLE 30 MG TAB.RAP.DR PO SCH (05:32)
[2017-06-06 05:46] LABS: ABSOLUTE LYMPHOCYTES (AUTO) 1.9 10^3/uL (0.5-4.7); ABSOLUTE MONOCYTES (AUTO) 1.2 10^3/uL (0.1-1.4); ABSOLUTE NEUT (AUTO) 6.8 10^3/uL (1.7-8.2); BASOPHILS % (AUTO) 0.4 % (0-2); EOSINOPHILS % (AUTO) 0.2 % (0-6); HEMATOCRIT 28.4 % (36.0-47.0); HEMOGLOBIN 9.2 g/dL (12.0-15.5); LYMPHOCYTES % (AUTO) 19.1 % (13-45); MEAN CORPUSCULAR HEMOGLOBIN 27.4 pg (27.0-33.4); MEAN CORPUSCULAR HGB CONC 32.5 g/dL (32.0-36.0); MEAN CORPUSCULAR VOLUME 84 fl (80-97); MONOCYTES % (AUTO) 11.9 % (3-13); PLATELET COUNT 223 10^3/uL (150-450); RED BLOOD COUNT 3.37 10^6/uL (3.72-5.28); RED CELL DISTRIBUTION WIDTH 18.6 % (11.5-14.0); SEGMENTED NEUTROPHILS % (AUTO) 68.4 % (42-78); TOTAL CELLS COUNTED % (AUTO) 100 %; WHITE BLOOD COUNT 9.9 10^3/uL (4.0-10.5)
[2017-06-06 05:52] LABS: INTERNATIONAL RATION (INR) 1.01
[2017-06-06 06:07] LABS: ALANINE AMINOTRANSFERASE 25 U/L (9-52); ALBUMIN 2.9 g/dL (3.5-5.0); ALKALINE PHOSPHATASE 89 U/L (38-126); ANION GAP 10 (5-19); ASPARTATE AMINO TRANSFERASE 36 U/L (14-36); BILIRUBIN,DIRECT 0.1 mg/dL (0.0-0.4); BILIRUBIN,TOTAL 0.1 mg/dL (0.2-1.3); BLOOD UREA NITROGEN 28 mg/dL (7-20); CALCIUM 8.7 mg/dL (8.4-10.2); CARBON DIOXIDE 21 mmol/L (22-30); CHLORIDE 114 mmol/L (98-107); CREATINE KINASE 326 U/L (30-135); GLUCOSE 60 mg/dL (75-110); SODIUM 145.3 mmol/L (137-145); TOTAL PROTEIN 5.2 g/dL (6.3-8.2)
[2017-06-06 06:17] LABS: CREATINE KINASE MB 1.34 ng/mL (<4.55); TROPONIN I 0.036 ng/mL
[2017-06-06 06:21] LABS: POTASSIUM 4.7 mmol/L (3.6-5.0)
[2017-06-06] MEDS: MULTIVITAMIN TABLET PO SCH (09:08)
[2017-06-06] MEDS: METHOCARBAMOL 500 MG TABLET PO SCH ×2 (09:08→23:03)
[2017-06-06] MEDS: PREGABALIN 75 MG CAPSULE PO SCH ×3 (09:08→23:03)
[2017-06-06] MEDS: FERROUS SULFATE 325 MG TABLET PO SCH (09:09)
[2017-06-06] MEDS: CITALOPRAM HYDROBROMIDE 20 MG TABLET PO SCH (09:09)
[2017-06-06] MEDS: ENOXAPARIN SODIUM INJ 40 MG/0.4 ML DISP.SYRIN SUBCUT SCH (09:09)
[2017-06-06] MEDS: PREDNISONE 5 MG TABLET PO SCH (09:09)
[2017-06-06] MEDS: BUDESONIDE/FORMOTEROL 160-4.5 MCG 60 PUFF/6 GM MDI IH SCH ×2 (09:12→23:00)
[2017-06-06] MEDS: LEVOFLOXACIN 750 MG/D5W RTU 750 MG/150 ML RTUPB IV SCH (09:31)
[2017-06-06] MEDS ORDERED: MULTIVITAMIN WITH MINERALS PO SCH (10:00)
[2017-06-06] MEDS: OXYCODONE HCL IR 5 MG TABLET PO PRN ×2 (11:19→18:40)
[2017-06-06] MEDS: AMLODIPINE BESYLATE 5 MG TABLET PO SCH (12:26)
[2017-06-06] MEDS: CLONIDINE HCL 0.1 MG TABLET PO SCH ×2 (12:26→23:04)
[2017-06-06] MEDS: LOSARTAN POTASSIUM 50 MG TABLET PO SCH (12:26)
[2017-06-06 13:21] LABS: CREATINE KINASE MB 1.35 ng/mL (<4.55); TROPONIN I 0.031 ng/mL
--- NOTE | 2017-06-06 22:11 | PDOC H&P ---
History of Present Illness Admission Date/PCP: 06/05/17 16:04 History of Present Illness: HUNTER GRANADOS is a 72 year old female,Female she has history of lung cancer, chronic obstructive pulmonary disease presently resident of the correction hyponatremia, she is not a candidate for the treatment of lung cancer, she was transferred from the [facility] to the emergency room for evaluation of altered mental status. In the emergency room she was found to have septic shock the source of the sepsis is felt to be the urine, she was fluid resuscitated in the emergency room and subsequently started on vasopressor Levophed and then dopamine. Patient is a DNR status, Past Medical History Cardiac Medical History: Reports: Hyperlipidema, Hypertension Pulmonary Medical History: Reports: Asthma, Bronchitis, Chronic Obstructive Pulmonary Disease (COPD), Pneumonia, Respiratory Failure Malignancy Medical History: Reports: Lung Cancer GI Medical History: Reports: Gastroesophageal Reflux Disease Musculoskeltal Medical History: Reports: Arthritis Psychiatric Medical History: Reports: Depression Traumatic Medical History: Denies: Traumatic Brain Injury Hematology: Reports: Anemia Infectious Medical History: Reports: 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 Past Surgical History Past Surgical History: Reports: Appendectomy, Cholecystectomy, Hysterectomy, Orthopedic Surgery Social History Smoking Status: Former Smoker Frequency of Alcohol Use: None Hx Recreational Drug Use: No Drugs: None Hx Prescription Drug Abuse: No - Advance Directive Resuscitation Status: Do Not Resuscitate Family History Family History: Arthritis, None, Reviewed & Not Pertinent Parental Family History Reviewed: Yes Children Family History Reviewed: Yes Sibling(s) Family History Reviewed.: Yes Medication/Allergy Home Medications: Albuterol Sulfate [Proair HFA Inhalation Aerosol 8.5 gm MDI] 2 puff NEB Q4HP PRN 06/05/17 Budesonide/Formoterol Fumarate [Symbicort 160-4.5 Mcg Inhaler] 1 puff IH Q12 Menthol [Biofreeze] 1 applic TOP QIDP PRN 06/05/17 Oxycodone HCl/Acetaminophen [Oxycodone-Acetaminophen 10-325] 1 tab PO Q8HP PRN 06/05/17 RX: Amlodipine Besylate [Norvasc 5 mg Tablet] 5 mg PO DAILY 06/05/17 RX: Citalopram Hydrobromide [Celexa 20 mg Tablet] 20 mg PO DAILY 06/05/17 RX: Clonazepam [Klonopin] 1 mg PO Q12HP PRN 06/05/17 RX: Clonidine HCl [Catapres 0.1 mg Tablet] 0.1 mg PO Q12 06/05/17 RX: Ergocalciferol (Vitamin D2) [Drisdol 50,000 unit (1.25MG) Capsule] 50,000 unit PO Q14D 06/05/17 RX: Ferrous Sulfate [Feosol 325 mg Tablet] 325 mg PO DAILY 06/05/17 RX: Ipratropium/Albuterol Sulfate [Iprat-Albut 0.5-3(2.5) mg/3 ml] 3 ml NEB Q6HP PRN 06/05/17 RX: Levalbuterol HCl [Xopenex Neb 0.63 mg/3 ml Ampul] 3 ml NEB Q4HP PRN RX: Levocetirizine Dihydrochloride [Xyzal] 5 mg PO QHS 06/05/17 RX: Losartan Potassium [Cozaar 100 mg Tablet] 100 mg PO DAILY 06/05/17 RX: Methocarbamol [Robaxin 500 mg Tablet] 500 mg PO Q12 06/05/17 RX: Mirtazapine 7.5 mg PO QHS 06/05/17 RX: Multivitamin with Minerals [One Daily Plus Minerals] 1 tab PO DAILY RX: Omeprazole 40 mg PO QAM 06/05/17 RX: Prednisone [Deltasone 5 mg Tablet] 5 mg PO DAILY 06/05/17 RX: Pregabalin [Lyrica 75 mg Capsule] 75 mg PO Q8 06/05/17 Tiotropium [place] [Spiriva Handihaler 5 Cap/Kit (18 Mcg/Cap)] 1 puff IH DAILY 06/05/17 Allergies/Adverse Reactions: Penicillins Allergy (Verified 05/22/17 08:57) Hives Review of Systems ROS unobtainable: Due to mental status - She is confused difficult to obtain review of systems Physical Exam Vital Signs: Temp Pulse Resp BP Pulse Ox 98.5 F 87 15 72/41 L 93 06/06/17 20:54 06/06/17 20:54 06/06/17 20:54 06/06/17 20:54 06/06/17 20:54 Intake & Output 06/05/17 06/06/1706/07/18 06:59 06:59 06:59 Intake Total 1110 1300 Output Total 100 600 Balance 1010 700 Weight 69.4 kg General appearance: PRESENT: severe distress Respiratory exam: PRESENT: rales Cardiovascular exam: PRESENT: +S1, +S2 GI/Abdominal exam: PRESENT: soft Neurological exam: PRESENT: altered Results Laboratory Results: 06/06/17 04:58 06/06/17 04:58 06/05/17 06/06/17 06/06/17 23:13 04:58 04:58 WBC 9.9 RBC 3.37 L Hgb 9.2 L Hct 28.4 L MCV 84 MCH 27.4 MCHC 32.5 RDW 18.6 H Plt Count 223 Seg Neutrophils % 68.4 Lymphocytes % 19.1 Monocytes % 11.9 Eosinophils % 0.2 Basophils % 0.4 Absolute Neutrophils 6.8 Absolute Lymphocytes 1.9 Absolute Monocytes 1.2 Absolute Eosinophils 0.0 Absolute Basophils 0.0 Sodium 145.3 H Potassium 4.7 D Chloride 114 H Carbon Dioxide 21 L Anion Gap 10 BUN 28 H Creatinine 0.80 Est GFR ( Amer) > 60 Est GFR (Non-Af Amer) > 60 Glucose 60 L Calcium 8.7 Total Bilirubin 0.1 L AST 36 ALT 25 Alkaline Phosphatase 89 Total Protein 5.2 L Albumin 2.9 L TSH 1.82 Free T4 1.04 06/05/17 06/05/17 06/06/17 23:13 23:13 04:58 Creatine Kinase 426 H 326 H CK-MB (CK-2) 2.77 Troponin I 0.014 NT-Pro-B Natriuret Pep 06/06/17 06/06/17 06/06/17 04:58 12:31 12:31 Creatine Kinase 331 H CK-MB (CK-2) 1.34 1.35 Troponin I 0.036 0.031 NT-Pro-B Natriuret Pep 1690 H Impressions: Chest X-Ray 06/05/17 12:57 IMPRESSION: NO CHANGE IN APPEARANCE OF THE CHEST. LARGE LEFT LUNG MASS. NO ACUTE RADIOGRAPHIC FINDING IN THE CHEST. Assessment & Plan - Diagnosis (1) Septic shock Is this a current diagnosis for this admission?: Yes Plan: Patient is septic shock, continue IV fluid intravenous vasopressor, antibiotic (2) Urinary tract infection Qualifiers: Urinary tract infection type: acute pyelonephritis Qualified Code(s): N10 - Acute pyelonephritis Is this a current diagnosis for this admission?: Yes (3) Acute and chronic respiratory failure ([id number]) Qualifiers: Respiratory failure complication: hypoxia and hypercapnia Qualified Code(s) : J96.21 - Acute and chronic respiratory failure with hypoxia; J96.22 - Acute and chronic respiratory failure with hypercapnia; J96.22 - Acute and chronic respiratory failure with hypercapnia; J96.22 - Acute and chronic respiratory failure with hypercapnia Is this a current diagnosis for this admission?: Yes
[2017-06-06] MEDS: CETIRIZINE 5 MG TABLET PO SCH (22:59)
[2017-06-06] MEDS: MIRTAZAPINE 15 MG TABLET PO SCH (23:03)
[2017-06-07] MEDS: PREGABALIN 75 MG CAPSULE PO SCH ×3 (05:27→21:18)
[2017-06-07] MEDS: LANSOPRAZOLE 30 MG TAB.RAP.DR PO SCH (05:27)
[2017-06-07] MEDS: NORMAL SALINE 1000 ML 1,000 ML IV PRN (05:31)
[2017-06-07 05:37] LABS: ABSOLUTE LYMPHOCYTES (AUTO) 2.2 10^3/uL (0.5-4.7); ABSOLUTE MONOCYTES (AUTO) 0.9 10^3/uL (0.1-1.4); ABSOLUTE NEUT (AUTO) 4.5 10^3/uL (1.7-8.2); BASOPHILS % (AUTO) 0.4 % (0-2); EOSINOPHILS % (AUTO) 0.5 % (0-6); HEMATOCRIT 25.9 % (36.0-47.0); HEMOGLOBIN 8.3 g/dL (12.0-15.5); LYMPHOCYTES % (AUTO) 28.5 % (13-45); MEAN CORPUSCULAR HEMOGLOBIN 27.3 pg (27.0-33.4); MEAN CORPUSCULAR HGB CONC 31.9 g/dL (32.0-36.0); MEAN CORPUSCULAR VOLUME 86 fl (80-97); MONOCYTES % (AUTO) 11.4 % (3-13); PLATELET COUNT 197 10^3/uL (150-450); RED BLOOD COUNT 3.03 10^6/uL (3.72-5.28); RED CELL DISTRIBUTION WIDTH 18.8 % (11.5-14.0); SEGMENTED NEUTROPHILS % (AUTO) 59.2 % (42-78); TOTAL CELLS COUNTED % (AUTO) 100 %; WHITE BLOOD COUNT 7.6 10^3/uL (4.0-10.5)
--- NOTE | 2017-06-07 05:38 | PDOC PROGRESS REPORT ---
Subjective Progress Note for:: 06/07/17 Subjective:: Patient's condition is very poor, she continues to require positive pressure ventilation with BiPAP, the blood pressure is fluctuating, presently off vasopressor, prognosis is guarded to poor, family by the bedside Reason For Visit: SEPTIC SHOCK, UTI,LUNG CANCER Physical Exam Vital Signs: Temp Pulse Resp BP Pulse Ox 98.3 F 83 18 87/38 L 95 06/07/17 00:05 06/07/17 00:05 06/07/17 04:00 06/07/17 00:05 06/07/17 04:00 Intake & Output 06/05/17 06/06/17 06/07/17 06:59 06:59 06:59 Intake Total 1110 1300 Output Total 100 600 Balance 1010 700 Weight 69.4 kg General appearance: PRESENT: no acute distress Eye exam: PRESENT: PERRLA Respiratory exam: PRESENT: rales Cardiovascular exam: PRESENT: +S1, +S2 GI/Abdominal exam: PRESENT: soft Neurological exam: PRESENT: alert Results Laboratory Results: 06/06/17 06/06/17 04:58 04:58 WBC 9.9 RBC 3.37 L Hgb 9.2 L Hct 28.4 L MCV 84 MCH 27.4 MCHC 32.5 RDW 18.6 H Plt Count 223 Seg Neutrophils % 68.4 Lymphocytes % 19.1 Monocytes % 11.9 Eosinophils % 0.2 Basophils % 0.4 Absolute Neutrophils 6.8 Absolute Lymphocytes 1.9 Absolute Monocytes 1.2 Absolute Eosinophils 0.0 Absolute Basophils 0.0 Sodium 145.3 H Potassium 4.7 D Chloride 114 H Carbon Dioxide 21 L Anion Gap 10 BUN 28 H Creatinine 0.80 Est GFR ( Amer) > 60 Est GFR (Non-Af Amer) > 60 Glucose 60 L Calcium 8.7 Total Bilirubin 0.1 L AST 36 ALT 25 Alkaline Phosphatase 89 Total Protein 5.2 L Albumin 2.9 L 06/05/17 06/05/17 06/06/17 23:13 23:13 04:58 Creatine Kinase 426 H 326 H CK-MB (CK-2) 2.77 Troponin I 0.014 NT-Pro-B Natriuret Pep 06/06/17 06/06/17 06/06/17 04:58 12:31 12:31 Creatine Kinase 331 H CK-MB (CK-2) 1.34 1.35 Troponin I 0.036 0.031 NT-Pro-B Natriuret Pep 1690 H Impressions: Chest X-Ray 06/05/17 12:57 IMPRESSION: NO CHANGE IN APPEARANCE OF THE CHEST. LARGE LEFT LUNG MASS. NO ACUTE RADIOGRAPHIC FINDING IN THE CHEST. Assessment & Plan - Diagnosis (1) Septic shock Is this a current diagnosis for this admission?: Yes (2) Urinary tract infection Qualifiers: Urinary tract infection type: acute pyelonephritis Qualified Code(s): N10 - Acute pyelonephritis Is this a current diagnosis for this admission?: Yes (3) Acute and chronic respiratory failure ([id number]) Qualifiers: Respiratory failure complication: hypoxia and hypercapnia Qualified Code(s) : J96.21 - Acute and chronic respiratory failure with hypoxia; J96.22 - Acute and chronic respiratory failure with hypercapnia; J96.22 - Acute and chronic respiratory failure with hypercapnia; J96.22 - Acute and chronic respiratory failure with hypercapnia Is this a current diagnosis for this admission?: Yes (4) Malignant neoplasm of lower lobe, left bronchus or lung Is this a current diagnosis for this admission?: Yes (5) Acute and chronic respiratory failure with hypoxia Is this a current diagnosis for this admission?: Yes - Plan Summary Plan Summary: Continue present treatment
[2017-06-07 05:48] LABS: INTERNATIONAL RATION (INR) 0.99; PROTHROMBIN TIME 13.8 SEC (11.4-15.4)
[2017-06-07 06:08] LABS: ALANINE AMINOTRANSFERASE 28 U/L (9-52); ALBUMIN 2.7 g/dL (3.5-5.0); ALKALINE PHOSPHATASE 75 U/L (38-126); ANION GAP 8 (5-19); ASPARTATE AMINO TRANSFERASE 47 U/L (14-36); BILIRUBIN,DIRECT 0.2 mg/dL (0.0-0.4); BILIRUBIN,TOTAL 0.2 mg/dL (0.2-1.3); BLOOD UREA NITROGEN 31 mg/dL (7-20); CALCIUM 7.9 mg/dL (8.4-10.2); CARBON DIOXIDE 21 mmol/L (22-30); CHLORIDE 117 mmol/L (98-107); GLUCOSE 62 mg/dL (75-110); POTASSIUM 4.4 mmol/L (3.6-5.0); SODIUM 145.9 mmol/L (137-145); TOTAL PROTEIN 5.5 g/dL (6.3-8.2)
[2017-06-07] MEDS: MULTIVITAMIN TABLET PO SCH (09:09)
[2017-06-07] MEDS: PREDNISONE 5 MG TABLET PO SCH (09:10)
[2017-06-07] MEDS: LEVOFLOXACIN 750 MG/D5W RTU 750 MG/150 ML RTUPB IV SCH (09:10)
[2017-06-07] MEDS: METHOCARBAMOL 500 MG TABLET PO SCH ×2 (09:10→21:18)
[2017-06-07] MEDS: ENOXAPARIN SODIUM INJ 40 MG/0.4 ML DISP.SYRIN SUBCUT SCH (09:10)
[2017-06-07] MEDS: FERROUS SULFATE 325 MG TABLET PO SCH (09:10)
[2017-06-07] MEDS: CITALOPRAM HYDROBROMIDE 20 MG TABLET PO SCH (09:10)
[2017-06-07] MEDS: HYDROMORPHONE HCL INJ/PF 2 MG/ML AMPULE IV PRN (09:12)
[2017-06-07] MEDS: BUDESONIDE/FORMOTEROL 160-4.5 MCG 60 PUFF/6 GM MDI IH SCH ×2 (09:13→21:17)
[2017-06-07] MEDS: CLONIDINE HCL 0.1 MG TABLET PO SCH ×2 (09:14→21:19)
[2017-06-07] MEDS: LOSARTAN POTASSIUM 50 MG TABLET PO SCH (09:14)
[2017-06-07] MEDS: AMLODIPINE BESYLATE 5 MG TABLET PO SCH (09:14)
--- NOTE | 2017-06-07 13:08 | PDOC PROGRESS REPORT ---
Subjective Progress Note for:: 06/07/17 Subjective:: She was seen by the bedside, urine culture grew Proteus mirabilis resistant to fluoroquinolones sensitive to beta-lactam but she has allergy to penicillin. She continues to require noninvasive positive pressure ventilation with BiPAP. Overall prognosis remains very poor Reason For Visit: SEPTIC SHOCK, UTI,LUNG CANCER Physical Exam Vital Signs: Temp Pulse Resp BP Pulse Ox 98.3 F 19 L 18 104/65 91 L 06/07/17 04:29 06/07/17 08:06 06/07/17 12:00 06/07/17 04:29 06/07/17 08:06 Intake & Output 06/06/17 06/07/17 06/08/17 06:59 06:59 06:59 Intake Total 1110 3255 Output Total 100 1100 Balance 1010 2155 Weight 69.4 kg 72 kg General appearance: PRESENT: mild distress Eye exam: PRESENT: PERRLA Respiratory exam: PRESENT: decreased breath sounds Cardiovascular exam: PRESENT: +S1, +S2 GI/Abdominal exam: PRESENT: soft Neurological exam: PRESENT: alert Results Laboratory Results: 06/07/17 04:26 06/07/17 04:26 06/07/17 06/07/17 04:26 04:26 WBC 7.6 RBC 3.03 L Hgb 8.3 L Hct 25.9 L MCV 86 MCH 27.3 MCHC 31.9 L RDW 18.8 H Plt Count 197 Seg Neutrophils % 59.2 Lymphocytes % 28.5 Monocytes % 11.4 Eosinophils % 0.5 Basophils % 0.4 Absolute Neutrophils 4.5 Absolute Lymphocytes 2.2 Absolute Monocytes 0.9 Absolute Eosinophils 0.0 Absolute Basophils 0.0 Sodium 145.9 H Potassium 4.4 Chloride 117 H Carbon Dioxide 21 L Anion Gap 8 BUN 31 H Creatinine 1.02 Est GFR ( Amer) > 60 Est GFR (Non-Af Amer) 53 L Glucose 62 L Calcium 7.9 L Total Bilirubin 0.2 AST 47 H ALT 28 Alkaline Phosphatase 75 Total Protein 5.5 L Albumin 2.7 L 06/05/17 06/05/17 06/06/17 23:13 23:13 04:58 Creatine Kinase 426 H 326 H CK-MB (CK-2) 2.77 Troponin I 0.014 NT-Pro-B Natriuret Pep 06/06/17 06/06/17 06/06/17 04:58 12:31 12:31 Creatine Kinase 331 H CK-MB (CK-2) 1.34 1.35 Troponin I 0.036 0.031 NT-Pro-B Natriuret Pep 1690 H 06/07/17 04:26 Creatine Kinase CK-MB (CK-2) Troponin I NT-Pro-B Natriuret Pep 1160 H Impressions: Chest X-Ray 06/05/17 12:57 IMPRESSION: NO CHANGE IN APPEARANCE OF THE CHEST. LARGE LEFT LUNG MASS. NO ACUTE RADIOGRAPHIC FINDING IN THE CHEST. Assessment & Plan - Diagnosis (1) Septic shock Is this a current diagnosis for this admission?: Yes (2) Urinary tract infection Qualifiers: Urinary tract infection type: acute pyelonephritis Qualified Code(s): N10 - Acute pyelonephritis Is this a current diagnosis for this admission?: Yes (3) Acute and chronic respiratory failure ([id number]) Qualifiers: Respiratory failure complication: hypoxia and hypercapnia Qualified Code(s) : J96.21 - Acute and chronic respiratory failure with hypoxia; J96.22 - Acute and chronic respiratory failure with hypercapnia; J96.22 - Acute and chronic respiratory failure with hypercapnia; J96.22 - Acute and chronic respiratory failure with hypercapnia Is this a current diagnosis for this admission?: Yes (4) Malignant neoplasm of lower lobe, left bronchus or lung Is this a current diagnosis for this admission?: Yes (5) Acute and chronic respiratory failure with hypoxia Is this a current diagnosis for this admission?: Yes (6) Proteus mirabilis infection Is this a current diagnosis for this admission?: Yes Plan: DC Levaquin start IV ceftriaxone
--- NOTE | 2017-06-07 13:11 | PDOC PROGRESS REPORT ---
Subjective Progress Note for:: 06/06/17 Subjective:: She was seen by the bedside, still requires noninvasive positive pressure ventilation with BiPAP Reason For Visit: SEPTIC SHOCK, UTI,LUNG CANCER Physical Exam Vital Signs: Temp Pulse Resp BP Pulse Ox 98.3 F 19 L 18 104/65 91 L 06/07/17 04:29 06/07/17 08:06 06/07/17 12:00 06/07/17 04:29 06/07/17 08:06 Intake & Output 06/06/17 06/07/17 06/08/17 06:59 06:59 06:59 Intake Total 1110 3255 Output Total 100 1100 Balance 1010 2155 Weight 69.4 kg 72 kg General appearance: PRESENT: no acute distress Eye exam: PRESENT: PERRLA Respiratory exam: PRESENT: rhonchi Cardiovascular exam: PRESENT: +S1, +S2 Neurological exam: PRESENT: alert Results Laboratory Results: 06/07/17 04:26 06/07/17 04:26 06/07/17 06/07/17 04:26 04:26 WBC 7.6 RBC 3.03 L Hgb 8.3 L Hct 25.9 L MCV 86 MCH 27.3 MCHC 31.9 L RDW 18.8 H Plt Count 197 Seg Neutrophils % 59.2 Lymphocytes % 28.5 Monocytes % 11.4 Eosinophils % 0.5 Basophils % 0.4 Absolute Neutrophils 4.5 Absolute Lymphocytes 2.2 Absolute Monocytes 0.9 Absolute Eosinophils 0.0 Absolute Basophils 0.0 Sodium 145.9 H Potassium 4.4 Chloride 117 H Carbon Dioxide 21 L Anion Gap 8 BUN 31 H Creatinine 1.02 Est GFR ( Amer) > 60 Est GFR (Non-Af Amer) 53 L Glucose 62 L Calcium 7.9 L Total Bilirubin 0.2 AST 47 H ALT 28 Alkaline Phosphatase 75 Total Protein 5.5 L Albumin 2.7 L 06/05/17 06/05/17 06/06/17 23:13 23:13 04:58 Creatine Kinase 426 H 326 H CK-MB (CK-2) 2.77 Troponin I 0.014 NT-Pro-B Natriuret Pep 06/06/17 06/06/17 06/06/17 04:58 12:31 12:31 Creatine Kinase 331 H CK-MB (CK-2) 1.34 1.35 Troponin I 0.036 0.031 NT-Pro-B Natriuret Pep 1690 H 06/07/17 04:26 Creatine Kinase CK-MB (CK-2) Troponin I NT-Pro-B Natriuret Pep 1160 H Impressions: Chest X-Ray 06/05/17 12:57 IMPRESSION: NO CHANGE IN APPEARANCE OF THE CHEST. LARGE LEFT LUNG MASS. NO ACUTE RADIOGRAPHIC FINDING IN THE CHEST. Assessment & Plan - Diagnosis (1) Septic shock Is this a current diagnosis for this admission?: Yes (2) Urinary tract infection Qualifiers: Urinary tract infection type: acute pyelonephritis Qualified Code(s): N10 - Acute pyelonephritis Is this a current diagnosis for this admission?: Yes (3) Acute and chronic respiratory failure ([id number]) Qualifiers: Respiratory failure complication: hypoxia and hypercapnia Qualified Code(s) : J96.21 - Acute and chronic respiratory failure with hypoxia; J96.22 - Acute and chronic respiratory failure with hypercapnia; J96.22 - Acute and chronic respiratory failure with hypercapnia; J96.22 - Acute and chronic respiratory failure with hypercapnia Is this a current diagnosis for this admission?: Yes (4) Malignant neoplasm of lower lobe, left bronchus or lung Is this a current diagnosis for this admission?: Yes (5) Acute and chronic respiratory failure with hypoxia Is this a current diagnosis for this admission?: Yes (6) Proteus mirabilis infection Is this a current diagnosis for this admission?: Yes
[2017-06-07] MEDS: OXYCODONE-ACETAMINOPHEN 5-325 MG TABLET PO PRN (15:56)
[2017-06-07] MEDS: OXYCODONE HCL IR 5 MG TABLET PO PRN (15:56)
[2017-06-07] MEDS: CEFTRIAXONE 2 GM/D5W RTU 2 GM/50 ML RTUPB IV SCH (16:07)
[2017-06-07] MEDS ORDERED: ONDANSETRON 4 MG TAB.RAPDIS ONE (21:11)
[2017-06-07] MEDS: CETIRIZINE 5 MG TABLET PO SCH (21:18)
[2017-06-07] MEDS: MIRTAZAPINE 15 MG TABLET PO SCH (21:18)
[2017-06-07] MEDS ORDERED: ONDANSETRON 4 MG TAB.RAPDIS PO PRN (21:32)
[2017-06-08 05:00] LABS: ABSOLUTE EOSINOPHILS # (AUTO) 0.1 10^3/uL (0.0-0.6); ABSOLUTE LYMPHOCYTES (AUTO) 1.8 10^3/uL (0.5-4.7); ABSOLUTE MONOCYTES (AUTO) 0.7 10^3/uL (0.1-1.4); ABSOLUTE NEUT (AUTO) 5.5 10^3/uL (1.7-8.2); BASOPHILS % (AUTO) 0.3 % (0-2); EOSINOPHILS % (AUTO) 0.7 % (0-6); HEMATOCRIT 27.7 % (36.0-47.0); HEMOGLOBIN 8.9 g/dL (12.0-15.5); LYMPHOCYTES % (AUTO) 22.4 % (13-45); MEAN CORPUSCULAR HEMOGLOBIN 27.4 pg (27.0-33.4); MEAN CORPUSCULAR VOLUME 86 fl (80-97); MONOCYTES % (AUTO) 8.8 % (3-13); PLATELET COUNT 183 10^3/uL (150-450); RED BLOOD COUNT 3.23 10^6/uL (3.72-5.28); SEGMENTED NEUTROPHILS % (AUTO) 67.8 % (42-78); TOTAL CELLS COUNTED % (AUTO) 100 %; WHITE BLOOD COUNT 8.1 10^3/uL (4.0-10.5)
[2017-06-08 05:03] LABS: INTERNATIONAL RATION (INR) 0.95; PROTHROMBIN TIME 13.4 SEC (11.4-15.4)
[2017-06-08 05:40] LABS: ALANINE AMINOTRANSFERASE 29 U/L (9-52); ALBUMIN 2.6 g/dL (3.5-5.0); ALKALINE PHOSPHATASE 74 U/L (38-126); ANION GAP 9 (5-19); ASPARTATE AMINO TRANSFERASE 38 U/L (14-36); BLOOD UREA NITROGEN 26 mg/dL (7-20); CALCIUM 8.2 mg/dL (8.4-10.2); CARBON DIOXIDE 20 mmol/L (22-30); CHLORIDE 118 mmol/L (98-107); GLUCOSE 71 mg/dL (75-110); POTASSIUM 4.7 mmol/L (3.6-5.0); SODIUM 147.3 mmol/L (137-145); TOTAL PROTEIN 4.8 g/dL (6.3-8.2)
[2017-06-08 05:46] LABS: BILIRUBIN,TOTAL < 0.1 mg/dL (0.2-1.3)
[2017-06-08] MEDS: CLONAZEPAM 1 MG TABLET PO PRN (06:47)
[2017-06-08] MEDS: LANSOPRAZOLE 30 MG TAB.RAP.DR PO SCH (06:47)
[2017-06-08] MEDS: PREGABALIN 75 MG CAPSULE PO SCH ×3 (06:47→22:01)
[2017-06-08] MEDS: OXYCODONE-ACETAMINOPHEN 5-325 MG TABLET PO PRN (07:44)
[2017-06-08] MEDS: OXYCODONE HCL IR 5 MG TABLET PO PRN (07:44)
[2017-06-08] MEDS: AMLODIPINE BESYLATE 5 MG TABLET PO SCH (12:25)
[2017-06-08] MEDS: LOSARTAN POTASSIUM 50 MG TABLET PO SCH (12:25)
[2017-06-08] MEDS: CLONIDINE HCL 0.1 MG TABLET PO SCH ×2 (12:25→22:01)
[2017-06-08] MEDS: MULTIVITAMIN TABLET PO SCH (13:07)
[2017-06-08] MEDS: METHOCARBAMOL 500 MG TABLET PO SCH ×2 (13:07→22:01)
[2017-06-08] MEDS: PREDNISONE 5 MG TABLET PO SCH (13:07)
[2017-06-08] MEDS: FERROUS SULFATE 325 MG TABLET PO SCH (13:07)
[2017-06-08] MEDS: CITALOPRAM HYDROBROMIDE 20 MG TABLET PO SCH (13:08)
[2017-06-08] MEDS: BUDESONIDE/FORMOTEROL 160-4.5 MCG 60 PUFF/6 GM MDI IH SCH ×2 (13:08→22:01)
[2017-06-08] MEDS: ENOXAPARIN SODIUM INJ 40 MG/0.4 ML DISP.SYRIN SUBCUT SCH (13:08)
--- NOTE | 2017-06-08 13:45 | PDOC PROGRESS REPORT ---
Subjective Progress Note for:: 06/08/17 Subjective:: Patient was seen by the bedside condition is very poor today, low urinary output. Patient is a DNR status Reason For Visit: SEPTIC SHOCK, UTI,LUNG CANCER Physical Exam Vital Signs: Temp Pulse Resp BP Pulse Ox 98.4 F 94 17 103/60 92 06/08/17 11:19 06/08/17 11:19 06/08/17 11:56 06/08/17 11:19 06/08/17 11:56 Intake & Output 06/07/17 06/08/17 06/09/17 06:59 06:59 06:59 Intake Total 3255 2422 50 Output Total 1100 1350 300 Balance 2155 1072 -250 Weight 72 kg 73.8 kg General appearance: PRESENT: no acute distress Eye exam: PRESENT: PERRLA Respiratory exam: PRESENT: decreased breath sounds Cardiovascular exam: PRESENT: +S1, +S2 GI/Abdominal exam: PRESENT: soft Neurological exam: PRESENT: alert Results Laboratory Results: 06/08/17 04:31 06/08/17 04:31 06/08/17 06/08/17 04:31 04:31 WBC 8.1 RBC 3.23 L Hgb 8.9 L Hct 27.7 L MCV 86 MCH 27.4 MCHC 32.0 RDW 19.0 H Plt Count 183 Seg Neutrophils % 67.8 Lymphocytes % 22.4 Monocytes % 8.8 Eosinophils % 0.7 Basophils % 0.3 Absolute Neutrophils 5.5 Absolute Lymphocytes 1.8 Absolute Monocytes 0.7 Absolute Eosinophils 0.1 Absolute Basophils 0.0 Sodium 147.3 H Potassium 4.7 Chloride 118 H Carbon Dioxide 20 L Anion Gap 9 BUN 26 H Creatinine 0.89 Est GFR ( Amer) > 60 Est GFR (Non-Af Amer) > 60 Glucose 71 L Calcium 8.2 L Total Bilirubin < 0.1 L AST 38 H ALT 29 Alkaline Phosphatase 74 Total Protein 4.8 L Albumin 2.6 L 06/05/17 06/05/17 06/06/17 23:13 23:13 04:58 Creatine Kinase 426 H 326 H CK-MB (CK-2) 2.77 Troponin I 0.014 NT-Pro-B Natriuret Pep 06/06/17 06/06/17 06/06/17 04:58 12:31 12:31 Creatine Kinase 331 H CK-MB (CK-2) 1.34 1.35 Troponin I 0.036 0.031 NT-Pro-B Natriuret Pep 1690 H 06/07/17 06/08/17 04:26 04:31 Creatine Kinase CK-MB (CK-2) Troponin I NT-Pro-B Natriuret Pep 1160 H 771 Impressions: Chest X-Ray 06/05/17 12:57 IMPRESSION: NO CHANGE IN APPEARANCE OF THE CHEST. LARGE LEFT LUNG MASS. NO ACUTE RADIOGRAPHIC FINDING IN THE CHEST. Assessment & Plan - Diagnosis (1) Septic shock Is this a current diagnosis for this admission?: Yes (2) Urinary tract infection Qualifiers: Urinary tract infection type: acute pyelonephritis Qualified Code(s): N10 - Acute pyelonephritis Is this a current diagnosis for this admission?: Yes (3) Acute and chronic respiratory failure ([id number]) Qualifiers: Respiratory failure complication: hypoxia and hypercapnia Qualified Code(s) : J96.21 - Acute and chronic respiratory failure with hypoxia; J96.22 - Acute and chronic respiratory failure with hypercapnia; J96.22 - Acute and chronic respiratory failure with hypercapnia; J96.22 - Acute and chronic respiratory failure with hypercapnia Is this a current diagnosis for this admission?: Yes (4) Malignant neoplasm of lower lobe, left bronchus or lung Is this a current diagnosis for this admission?: Yes (5) Acute and chronic respiratory failure with hypoxia Is this a current diagnosis for this admission?: Yes (6) Proteus mirabilis infection Is this a current diagnosis for this admission?: Yes - Plan Summary Plan Summary: Patient with very poor prognosis
[2017-06-08] MEDS: CEFTRIAXONE 2 GM/D5W RTU 2 GM/50 ML RTUPB IV SCH (15:47)
[2017-06-08] MEDS: CETIRIZINE 5 MG TABLET PO SCH (22:01)
[2017-06-08] MEDS: MIRTAZAPINE 15 MG TABLET PO SCH (22:01)
[2017-06-09] MEDS: PREGABALIN 75 MG CAPSULE PO SCH ×3 (04:43→21:31)
[2017-06-09] MEDS: LANSOPRAZOLE 30 MG TAB.RAP.DR PO SCH (04:43)
[2017-06-09] MEDS: HYDROMORPHONE HCL INJ/PF 2 MG/ML AMPULE IV PRN (06:12)
[2017-06-09] MEDS ORDERED: TIOTROPIUM BROMIDE DPI 5 CAP/KIT (18 MCG/CAP) IH SCH (10:00)
[2017-06-09] MEDS: NORMAL SALINE 1000 ML 1,000 ML IV PRN ×2 (11:15→22:42)
[2017-06-09] MEDS: ENOXAPARIN SODIUM INJ 40 MG/0.4 ML DISP.SYRIN SUBCUT SCH (11:17)
[2017-06-09] MEDS: MULTIVITAMIN TABLET PO SCH (11:33)
[2017-06-09] MEDS: PREDNISONE 5 MG TABLET PO SCH (11:33)
[2017-06-09] MEDS: CLONIDINE HCL 0.1 MG TABLET PO SCH ×2 (11:33→21:31)
[2017-06-09] MEDS: CITALOPRAM HYDROBROMIDE 20 MG TABLET PO SCH (11:33)
[2017-06-09] MEDS: METHOCARBAMOL 500 MG TABLET PO SCH ×2 (11:33→21:31)
[2017-06-09] MEDS: FERROUS SULFATE 325 MG TABLET PO SCH (11:33)
[2017-06-09] MEDS: BUDESONIDE/FORMOTEROL 160-4.5 MCG 60 PUFF/6 GM MDI IH SCH ×2 (11:33→21:31)
[2017-06-09] MEDS: LOSARTAN POTASSIUM 50 MG TABLET PO SCH (11:33)
[2017-06-09] MEDS: AMLODIPINE BESYLATE 5 MG TABLET PO SCH (11:33)
[2017-06-09] MEDS: CEFTRIAXONE 2 GM/D5W RTU 2 GM/50 ML RTUPB IV SCH (15:01)
[2017-06-09] MEDS: MIRTAZAPINE 15 MG TABLET PO SCH (21:31)
[2017-06-09] MEDS: CETIRIZINE 5 MG TABLET PO SCH (21:31)
--- NOTE | 2017-06-09 21:32 | PDOC PROGRESS REPORT ---
Subjective Progress Note for:: 06/09/17 Subjective:: Patient is stuporous, I did not see any more value to continue positive pressure ventilation with BiPAP, she looks moribund, we will discontinue BiPAP and just use nasal cannula Reason For Visit: SEPTIC SHOCK, UTI,LUNG CANCER Physical Exam Vital Signs: Temp Pulse Resp BP Pulse Ox 98.8 F 99 14 113/58 L 100 06/09/17 19:28 06/09/17 19:28 06/09/17 20:00 06/09/17 19:28 06/09/17 19:28 Intake & Output 06/08/17 06/09/17 06/10/17 06:59 06:59 06:59 Intake Total 2422 2500 1200 Output Total 1350 1625 450 Balance 1072 875 750 Weight 73.8 kg 75.7 kg General appearance: PRESENT: other - Obtunded Respiratory exam: PRESENT: decreased breath sounds Cardiovascular exam: PRESENT: +S1, +S2 Neurological exam: PRESENT: altered Results Laboratory Results: 06/08/17 04:31 06/08/17 04:31 06/05/17 06/05/17 06/06/17 23:13 23:13 04:58 Creatine Kinase 426 H 326 H CK-MB (CK-2) 2.77 Troponin I 0.014 NT-Pro-B Natriuret Pep 06/06/17 06/06/17 06/06/17 04:58 12:31 12:31 Creatine Kinase 331 H CK-MB (CK-2) 1.34 1.35 Troponin I 0.036 0.031 NT-Pro-B Natriuret Pep 1690 H 06/07/17 06/08/17 04:26 04:31 Creatine Kinase CK-MB (CK-2) Troponin I NT-Pro-B Natriuret Pep 1160 H 771 Impressions: Chest X-Ray 06/05/17 12:57 IMPRESSION: NO CHANGE IN APPEARANCE OF THE CHEST. LARGE LEFT LUNG MASS. NO ACUTE RADIOGRAPHIC FINDING IN THE CHEST. Assessment & Plan - Diagnosis (1) Septic shock Is this a current diagnosis for this admission?: Yes (2) Urinary tract infection Qualifiers: Urinary tract infection type: acute pyelonephritis Qualified Code(s): N10 - Acute pyelonephritis Is this a current diagnosis for this admission?: Yes (3) Acute and chronic respiratory failure ([id number]) Qualifiers: Respiratory failure complication: hypoxia and hypercapnia Qualified Code(s) : J96.21 - Acute and chronic respiratory failure with hypoxia; J96.22 - Acute and chronic respiratory failure with hypercapnia; J96.22 - Acute and chronic respiratory failure with hypercapnia; J96.22 - Acute and chronic respiratory failure with hypercapnia Is this a current diagnosis for this admission?: Yes (4) Malignant neoplasm of lower lobe, left bronchus or lung Is this a current diagnosis for this admission?: Yes (5) Acute and chronic respiratory failure with hypoxia Is this a current diagnosis for this admission?: Yes (6) Proteus mirabilis infection Is this a current diagnosis for this admission?: Yes
[2017-06-10] MEDS: HYDROMORPHONE HCL INJ/PF 2 MG/ML AMPULE IV PRN ×2 (05:19→20:21)
[2017-06-10] MEDS: LANSOPRAZOLE 30 MG TAB.RAP.DR PO SCH (05:20)
[2017-06-10] MEDS: PREGABALIN 75 MG CAPSULE PO SCH ×3 (05:20→21:14)
[2017-06-10] MEDS: NORMAL SALINE 1000 ML 1,000 ML IV PRN ×2 (12:27→23:46)
[2017-06-10] MEDS: CEFTRIAXONE 2 GM/D5W RTU 2 GM/50 ML RTUPB IV SCH (16:16)
--- NOTE | 2017-06-10 17:48 | PDOC PROGRESS REPORT ---
Subjective Progress Note for:: 06/10/17 Subjective:: Patient seen by the bedside, still on BiPAP machine, I had a prolonged conversation with family about changing status for comfort care, family waiting on other family member Reason For Visit: SEPTIC SHOCK, UTI,LUNG CANCER Physical Exam Vital Signs: Temp Pulse Resp BP Pulse Ox 98.9 F 92 11 L 114/63 100 06/10/17 11:43 06/10/17 11:43 06/10/17 11:43 06/10/17 11:43 06/10/17 11:43 Intake & Output 06/09/17 06/10/17 06/11/17 06:59 06:59 06:59 Intake Total 2500 2400 0 Output Total 1625 1250 200 Balance 875 1150 -200 Weight 75.7 kg 74.4 kg General appearance: PRESENT: mild distress Cardiovascular exam: PRESENT: +S1, +S2 GI/Abdominal exam: PRESENT: soft Neurological exam: PRESENT: other - Unresponsive Results Laboratory Results: 06/08/17 04:31 06/08/17 04:31 06/05/17 06/05/17 06/06/17 23:13 23:13 04:58 Creatine Kinase 426 H 326 H CK-MB (CK-2) 2.77 Troponin I 0.014 NT-Pro-B Natriuret Pep 06/06/17 06/06/17 06/06/17 04:58 12:31 12:31 Creatine Kinase 331 H CK-MB (CK-2) 1.34 1.35 Troponin I 0.036 0.031 NT-Pro-B Natriuret Pep 1690 H 06/07/17 06/08/17 04:26 04:31 Creatine Kinase CK-MB (CK-2) Troponin I NT-Pro-B Natriuret Pep 1160 H 771 Impressions: Chest X-Ray 06/05/17 12:57 IMPRESSION: NO CHANGE IN APPEARANCE OF THE CHEST. LARGE LEFT LUNG MASS. NO ACUTE RADIOGRAPHIC FINDING IN THE CHEST. Assessment & Plan - Diagnosis (1) Septic shock Is this a current diagnosis for this admission?: Yes (2) Urinary tract infection Qualifiers: Urinary tract infection type: acute pyelonephritis Qualified Code(s): N10 - Acute pyelonephritis Is this a current diagnosis for this admission?: Yes (3) Acute and chronic respiratory failure ([id number]) Qualifiers: Respiratory failure complication: hypoxia and hypercapnia Qualified Code(s) : J96.21 - Acute and chronic respiratory failure with hypoxia; J96.22 - Acute and chronic respiratory failure with hypercapnia; J96.22 - Acute and chronic respiratory failure with hypercapnia; J96.22 - Acute and chronic respiratory failure with hypercapnia Is this a current diagnosis for this admission?: Yes (4) Malignant neoplasm of lower lobe, left bronchus or lung Is this a current diagnosis for this admission?: Yes (5) Acute and chronic respiratory failure with hypoxia Is this a current diagnosis for this admission?: Yes (6) Proteus mirabilis infection Is this a current diagnosis for this admission?: Yes
[2017-06-10] MEDS: PREDNISONE 5 MG TABLET PO SCH (18:24)
[2017-06-10] MEDS: CLONIDINE HCL 0.1 MG TABLET PO SCH ×2 (18:24→21:14)
[2017-06-10] MEDS: FERROUS SULFATE 325 MG TABLET PO SCH (18:24)
[2017-06-10] MEDS: METHOCARBAMOL 500 MG TABLET PO SCH ×2 (18:24→21:14)
[2017-06-10] MEDS: ENOXAPARIN SODIUM INJ 40 MG/0.4 ML DISP.SYRIN SUBCUT SCH (18:24)
[2017-06-10] MEDS: BUDESONIDE/FORMOTEROL 160-4.5 MCG 60 PUFF/6 GM MDI IH SCH ×2 (18:24→21:14)
[2017-06-10] MEDS: MULTIVITAMIN TABLET PO SCH (18:24)
[2017-06-10] MEDS: LOSARTAN POTASSIUM 50 MG TABLET PO SCH (18:24)
[2017-06-10] MEDS: CITALOPRAM HYDROBROMIDE 20 MG TABLET PO SCH (18:24)
[2017-06-10] MEDS: AMLODIPINE BESYLATE 5 MG TABLET PO SCH (18:24)
[2017-06-10] MEDS: CETIRIZINE 5 MG TABLET PO SCH (21:14)
[2017-06-10] MEDS: MIRTAZAPINE 15 MG TABLET PO SCH (21:14)
[2017-06-11] MEDS: LANSOPRAZOLE 30 MG TAB.RAP.DR PO SCH (05:05)
[2017-06-11] MEDS: PREGABALIN 75 MG CAPSULE PO SCH ×2 (05:05→12:35)
[2017-06-11] MEDS: HYDROMORPHONE HCL INJ/PF 2 MG/ML AMPULE IV PRN ×3 (11:53→20:08)
[2017-06-11] MEDS: METHOCARBAMOL 500 MG TABLET PO SCH (12:35)
[2017-06-11] MEDS: CITALOPRAM HYDROBROMIDE 20 MG TABLET PO SCH (12:35)
[2017-06-11] MEDS: BUDESONIDE/FORMOTEROL 160-4.5 MCG 60 PUFF/6 GM MDI IH SCH (12:35)
[2017-06-11] MEDS: LOSARTAN POTASSIUM 50 MG TABLET PO SCH (12:35)
[2017-06-11] MEDS: AMLODIPINE BESYLATE 5 MG TABLET PO SCH (12:35)
[2017-06-11] MEDS: CLONIDINE HCL 0.1 MG TABLET PO SCH (12:35)
[2017-06-11] MEDS: FERROUS SULFATE 325 MG TABLET PO SCH (12:35)
[2017-06-11] MEDS: PREDNISONE 5 MG TABLET PO SCH (12:35)
[2017-06-11] MEDS: MULTIVITAMIN TABLET PO SCH (12:35)
[2017-06-11] MEDS: ENOXAPARIN SODIUM INJ 40 MG/0.4 ML DISP.SYRIN SUBCUT SCH (12:35)
[2017-06-11] MEDS: CEFTRIAXONE 2 GM/D5W RTU 2 GM/50 ML RTUPB IV SCH (14:32)
--- NOTE | 2017-06-11 17:31 | PDOC PROGRESS REPORT ---
Subjective Progress Note for:: 06/11/17 Subjective:: Patient is moribund, family by the bedside, care status post change to comfort care, patient not expected to do well. Reason For Visit: SEPTIC SHOCK, UTI,LUNG CANCER Physical Exam Vital Signs: Temp Pulse Resp BP Pulse Ox 97.6 F 86 7 L 145/92 H 92 06/11/17 07:39 06/11/17 14:00 06/11/17 12:40 06/11/17 11:07 06/11/17 12:40 Intake & Output 06/10/17 06/11/17 06/12/17 06:59 06:59 06:59 Intake Total 2400 1950 0 Output Total 1250 950 375 Balance 1150 1000 -375 Weight 74.4 kg 75.2 kg Results Laboratory Results: 06/08/17 04:31 06/08/17 04:31 06/05/17 06/05/17 06/06/17 23:13 23:13 04:58 Creatine Kinase 426 H 326 H CK-MB (CK-2) 2.77 Troponin I 0.014 NT-Pro-B Natriuret Pep 06/06/17 06/06/17 06/06/17 04:58 12:31 12:31 Creatine Kinase 331 H CK-MB (CK-2) 1.34 1.35 Troponin I 0.036 0.031 NT-Pro-B Natriuret Pep 1690 H 06/07/17 06/08/17 04:26 04:31 Creatine Kinase CK-MB (CK-2) Troponin I NT-Pro-B Natriuret Pep 1160 H 771 Impressions: Chest X-Ray 06/05/17 12:57 IMPRESSION: NO CHANGE IN APPEARANCE OF THE CHEST. LARGE LEFT LUNG MASS. NO ACUTE RADIOGRAPHIC FINDING IN THE CHEST. Assessment & Plan - Diagnosis (1) Septic shock Is this a current diagnosis for this admission?: Yes (2) Urinary tract infection Qualifiers: Urinary tract infection type: acute pyelonephritis Qualified Code(s): N10 - Acute pyelonephritis Is this a current diagnosis for this admission?: Yes (3) Acute and chronic respiratory failure ([id number]) Qualifiers: Respiratory failure complication: hypoxia and hypercapnia Qualified Code(s) : J96.21 - Acute and chronic respiratory failure with hypoxia; J96.22 - Acute and chronic respiratory failure with hypercapnia; J96.22 - Acute and chronic respiratory failure with hypercapnia; J96.22 - Acute and chronic respiratory failure with hypercapnia Is this a current diagnosis for this admission?: Yes (4) Malignant neoplasm of lower lobe, left bronchus or lung Is this a current diagnosis for this admission?: Yes (5) Acute and chronic respiratory failure with hypoxia Is this a current diagnosis for this admission?: Yes (6) Proteus mirabilis infection Is this a current diagnosis for this admission?: Yes
[2017-06-11] MEDS: LORAZEPAM INJ 2 MG/1 ML VIAL IV PRN ×2 (17:50→20:08)
[2017-06-12] MEDS: HYDROMORPHONE HCL INJ/PF 2 MG/ML AMPULE IV PRN ×7 (00:05→20:47)
[2017-06-12] MEDS: LORAZEPAM INJ 2 MG/1 ML VIAL IV PRN ×7 (00:05→20:47)
--- NOTE | 2017-06-12 22:01 | PDOC PROGRESS REPORT ---
Subjective Progress Note for:: 06/12/17 Subjective:: Patient presently palliative care /omfort care measures Reason For Visit: SEPTIC SHOCK, UTI,LUNG CANCER Physical Exam Vital Signs: Temp Pulse Resp BP Pulse Ox 97.3 F 94 10 L 84/39 L 83 L 06/12/17 17:43 06/12/17 17:43 06/12/17 17:43 06/12/17 17:43 06/12/17 17:43 Intake & Output 06/11/17 06/12/17 06/13/17 06:59 06:59 06:59 Intake Total 1950 480 100 Output Total 950 475 50 Balance 1000 5 50 Weight 75.2 kg General appearance: PRESENT: no acute distress Results Laboratory Results: 06/08/17 04:31 06/08/17 04:31 06/05/17 06/05/17 06/06/17 23:13 23:13 04:58 Creatine Kinase 426 H 326 H CK-MB (CK-2) 2.77 Troponin I 0.014 NT-Pro-B Natriuret Pep 06/06/17 06/06/17 06/06/17 04:58 12:31 12:31 Creatine Kinase 331 H CK-MB (CK-2) 1.34 1.35 Troponin I 0.036 0.031 NT-Pro-B Natriuret Pep 1690 H 06/07/17 06/08/17 04:26 04:31 Creatine Kinase CK-MB (CK-2) Troponin I NT-Pro-B Natriuret Pep 1160 H 771 Impressions: Chest X-Ray 06/05/17 12:57 IMPRESSION: NO CHANGE IN APPEARANCE OF THE CHEST. LARGE LEFT LUNG MASS. NO ACUTE RADIOGRAPHIC FINDING IN THE CHEST. Assessment & Plan - Diagnosis (1) Septic shock Is this a current diagnosis for this admission?: Yes (2) Urinary tract infection Qualifiers: Urinary tract infection type: acute pyelonephritis Qualified Code(s): N10 - Acute pyelonephritis Is this a current diagnosis for this admission?: Yes (3) Acute and chronic respiratory failure ([id number]) Qualifiers: Respiratory failure complication: hypoxia and hypercapnia Qualified Code(s) : J96.21 - Acute and chronic respiratory failure with hypoxia; J96.22 - Acute and chronic respiratory failure with hypercapnia; J96.22 - Acute and chronic respiratory failure with hypercapnia; J96.22 - Acute and chronic respiratory failure with hypercapnia Is this a current diagnosis for this admission?: Yes (4) Malignant neoplasm of lower lobe, left bronchus or lung Is this a current diagnosis for this admission?: Yes (5) Acute and chronic respiratory failure with hypoxia Is this a current diagnosis for this admission?: Yes (6) Proteus mirabilis infection Is this a current diagnosis for this admission?: Yes
[2017-06-13] MEDS: HYDROMORPHONE HCL INJ/PF 2 MG/ML AMPULE IV PRN ×4 (01:47→19:05)
[2017-06-13] MEDS: LORAZEPAM INJ 2 MG/1 ML VIAL IV PRN ×4 (01:47→19:05)
[2017-06-13] MEDS ORDERED: DEXTROSE 40% GEL 15 GM TUBE PO PRN ×2 (11:40)
[2017-06-13] MEDS ORDERED: GLUCAGON,HUMAN RECOMB 1 MG INJ SUBCUT PRN (11:40)
[2017-06-13] MEDS ORDERED: DEXTROSE 50%-WATER 25 GM/50 ML DISP.SYRIN IV PRN ×2 (11:40)
[2017-06-13] MEDS: NORMAL SALINE 1000 ML 1,000 ML IV PRN (19:03)
--- NOTE | 2017-06-13 22:13 | PDOC PROGRESS REPORT ---
Subjective Progress Note for:: 06/13/17 Subjective:: Seen by the bedside discussed with family about prognosis plan of care, probably requesting IV fluid Reason For Visit: SEPTIC SHOCK, UTI,LUNG CANCER Physical Exam Vital Signs: Temp Pulse Resp BP Pulse Ox 97.3 F 90 10 L 84/39 L 90 L 06/12/17 17:43 06/13/17 14:00 06/12/17 17:43 06/12/17 17:43 06/13/17 00:45 Intake & Output 06/12/17 06/13/17 06/14/17 06:59 06:59 06:59 Intake Total 480 130 10 Output Total 475 50 50 Balance 5 80 -40 Results Laboratory Results: 06/08/17 04:31 06/08/17 04:31 06/05/17 06/05/17 06/06/17 23:13 23:13 04:58 Creatine Kinase 426 H 326 H CK-MB (CK-2) 2.77 Troponin I 0.014 NT-Pro-B Natriuret Pep 06/06/17 06/06/17 06/06/17 04:58 12:31 12:31 Creatine Kinase 331 H CK-MB (CK-2) 1.34 1.35 Troponin I 0.036 0.031 NT-Pro-B Natriuret Pep 1690 H 06/07/17 06/08/17 04:26 04:31 Creatine Kinase CK-MB (CK-2) Troponin I NT-Pro-B Natriuret Pep 1160 H 771 Impressions: Chest X-Ray 06/05/17 12:57 IMPRESSION: NO CHANGE IN APPEARANCE OF THE CHEST. LARGE LEFT LUNG MASS. NO ACUTE RADIOGRAPHIC FINDING IN THE CHEST. Assessment & Plan - Diagnosis (1) Septic shock Is this a current diagnosis for this admission?: Yes (2) Urinary tract infection Qualifiers: Urinary tract infection type: acute pyelonephritis Qualified Code(s): N10 - Acute pyelonephritis Is this a current diagnosis for this admission?: Yes (3) Acute and chronic respiratory failure ([id number]) Qualifiers: Respiratory failure complication: hypoxia and hypercapnia Qualified Code(s) : J96.21 - Acute and chronic respiratory failure with hypoxia; J96.22 - Acute and chronic respiratory failure with hypercapnia; J96.22 - Acute and chronic respiratory failure with hypercapnia; J96.22 - Acute and chronic respiratory failure with hypercapnia Is this a current diagnosis for this admission?: Yes (4) Malignant neoplasm of lower lobe, left bronchus or lung Is this a current diagnosis for this admission?: Yes (5) Acute and chronic respiratory failure with hypoxia Is this a current diagnosis for this admission?: Yes (6) Proteus mirabilis infection Is this a current diagnosis for this admission?: Yes
[2017-06-14] MEDS: HYDROMORPHONE HCL INJ/PF 2 MG/ML AMPULE IV PRN ×3 (00:31→17:11)
[2017-06-14] MEDS: LORAZEPAM INJ 2 MG/1 ML VIAL IV PRN ×2 (00:32→06:43)
[2017-06-14 08:34] VITALS: BP 65/34
--- NOTE | 2017-06-14 10:14 | PDOC PROGRESS REPORT ---
Subjective Progress Note for:: 06/14/17 Subjective:: Patient is currently in a comfort care Reason For Visit: SEPTIC SHOCK, UTI,LUNG CANCER Physical Exam Vital Signs: Temp Pulse Resp BP Pulse Ox 97.3 F 71 15 65/34 L 97 06/12/17 17:43 06/14/17 08:00 06/14/17 08:00 06/14/17 08:00 06/14/17 08:00 Intake & Output 06/13/17 06/14/17 06/15/17 06:59 06:59 06:59 Intake Total 130 1210 Output Total 50 175 Balance 80 1035 Weight 74.8 kg General appearance: PRESENT: mild distress Eye exam: PRESENT: PERRLA Mouth exam: PRESENT: neck supple Respiratory exam: PRESENT: clear to auscultation ghulam Cardiovascular exam: PRESENT: +S1, +S2 GI/Abdominal exam: PRESENT: normal bowel sounds Neurological exam: PRESENT: altered Results Laboratory Results: 06/08/17 04:31 06/08/17 04:31 06/05/17 06/05/17 06/06/17 23:13 23:13 04:58 Creatine Kinase 426 H 326 H CK-MB (CK-2) 2.77 Troponin I 0.014 NT-Pro-B Natriuret Pep 06/06/17 06/06/17 06/06/17 04:58 12:31 12:31 Creatine Kinase 331 H CK-MB (CK-2) 1.34 1.35 Troponin I 0.036 0.031 NT-Pro-B Natriuret Pep 1690 H 06/07/17 06/08/17 04:26 04:31 Creatine Kinase CK-MB (CK-2) Troponin I NT-Pro-B Natriuret Pep 1160 H 771 Impressions: Chest X-Ray 06/05/17 12:57 IMPRESSION: NO CHANGE IN APPEARANCE OF THE CHEST. LARGE LEFT LUNG MASS. NO ACUTE RADIOGRAPHIC FINDING IN THE CHEST. Assessment & Plan - Diagnosis (1) Malignant neoplasm of lower lobe, left bronchus or lung Is this a current diagnosis for this admission?: Yes (2) Proteus mirabilis infection Is this a current diagnosis for this admission?: Yes (3) Septic shock Is this a current diagnosis for this admission?: Yes (4) Acute and chronic respiratory failure ([id number]) Qualifiers: Respiratory failure complication: hypoxia and hypercapnia Qualified Code(s) : J96.21 - Acute and chronic respiratory failure with hypoxia; J96.22 - Acute and chronic respiratory failure with hypercapnia; J96.22 - Acute and chronic respiratory failure with hypercapnia; J96.22 - Acute and chronic respiratory failure with hypercapnia Is this a current diagnosis for this admission?: Yes - Time Time Spent with patient: 15-24 minutes Medications reviewed and adjusted accordingly: Yes Anticipated discharge: Other Within: Other - Inpatient Certification Medical Necessity: Need Close Monitoring Due to Risk of Patient Decompensation 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
[2017-06-14] MEDS: NORMAL SALINE 1000 ML 1,000 ML IV PRN (17:12)
[2017-06-15] MEDS: NORMAL SALINE 1000 ML 1,000 ML IV PRN (02:53)
[2017-06-15] MEDS ORDERED: ERGOCALCIFEROL (VITAMIN D2) 50000 UNIT (1.25 MG) CAPSULE PO SCH (08:00)
--- NOTE | 2017-06-16 17:12 | Death Summary ---
Summary Date : 06/15/17 Time of :: 06:35 Autopsy: No Resuscitation Status: Comfort Measures Only - Final Diagnosis (1) Septic shock Is this a current diagnosis for this admission?: Yes (2) Urinary tract infection Is this a current diagnosis for this admission?: Yes (3) Acute and chronic respiratory failure (apybq-gy-[id number]) Is this a current diagnosis for this admission?: Yes (4) Malignant neoplasm of lower lobe, left bronchus or lung Is this a current diagnosis for this admission?: Yes (5) Acute and chronic respiratory failure with hypoxia Is this a current diagnosis for this admission?: Yes (6) Proteus mirabilis infection Is this a current diagnosis for this admission?: Yes Hospital Course:: Patient with malignant neoplasm of left lung she presented with septic shock the source was thought to be the urine. She was treated with normal saline IV antibiotic, patient's condition was very poor, she has multiple hospital admission for sepsis related condition. Her condition deteriorated very rapidly , she required noninvasive positive pressure ventilation with BiPAP, she did not gain full consciousness throughout hospital stay. The care was transitioned to comfort care measure when it became obvious that she was not responding to treatment.
== END 2017-06-15 10:50 | DRG 871 ==
LOC: ER 12:03 → EH 16:04 → 3N 20:45
PROVIDERS: ADMIT Internal Medicine; ATTEND Internal Medicine
DX: A41.9 Sepsis, unspecified organism (principal); J96.21 Acute and chronic respiratory failure with hypoxia; R65.21 Severe sepsis with septic shock; C34.32 Malignant neoplasm of lower lobe, left bronchus or lung; N10 Acute pyelonephritis; Z66 Do not resuscitate; Z51.5 Encounter for palliative care; E78.00 Pure hypercholesterolemia, unspecified; I10 Essential (primary) hypertension; K21.9 Gastro-esophageal reflux disease without esophagitis; D64.9 Anemia, unspecified; I95.9 Hypotension, unspecified; J44.9 Chronic obstructive pulmonary disease, unspecified; B96.4 Proteus (mirabilis) (morganii) as the cause of diseases classified elsewhere; Z99.81 Dependence on supplemental oxygen; Z79.51 Long term (current) use of inhaled steroids; Z79.52 Long term (current) use of systemic steroids; Z79.899 Other long term (current) drug therapy
CPT/HCPCS: 36415; 71045; 80048; 80053; 80076; 81001; 82550; 82553; 82803; 83605; 83880; 84439; 84443; 84484; 85025; 85610; 87040; 87086; 87088; 87186; 93005; 93010; 94640; 94660; 96365; 96367; 99291; J0692; J0696; J1170; J1265; J1650; J1956; J2060; J3490; J7030; J7060; J7512; J7614; J7620; S0119